=== PATIENT | male | born 1960 | race Caucasian/White ===

== ENCOUNTER → 2018-07-06 07:43 | Outpatient (CLI) | payer OTHER, SELFPAY ==
[2018-05-27 14:55] VITALS: BMI 26.8
[2018-07-06 08:58] LABS: AST(SGOT) 22 U/L (15-37); Alanine Aminotransfer ALT/SGPT 29 U/L (16-61); Albumin, Serum 3.6 g/dL (3.2-5.0); Alkaline Phosphatase 68 U/L (45-117); Bilirubin, Direct 0.18 mg/dL (0.00-0.30); Cholesterol 168 mg/dL (200); Globulin 3.3 g/dL (2.2-4.2); High Density Lipoprotein 39 mg/dL; Protein, Total 6.9 g/dL (6.4-8.2); Triglycerides 150 mg/dL; Very Low Density Lipoprotein 30 mg/dL (5-40)
== END ==
PROVIDERS: Family Provider Family Medicine; PCP Family Medicine; Referring Provider Internal Medicine Cardiovascular Disease; Visit Provider Internal Medicine Cardiovascular Disease
DX: E78.00 Pure hypercholesterolemia, unspecified (principal)
CPT/HCPCS: 36415; 80061; 80076

== ENCOUNTER → 2018-07-07 06:51 | Outpatient (CLI) | payer OTHER, SELFPAY ==
[2018-05-27 14:55] VITALS: BMI 26.8
--- NOTE | 2018-07-07 10:38 | STRESSREP_ITS ---
Stress Test Report Date: 07-07-18 Procedure: Exercise tolerance test/imaging study Indications: Chest pain; paroxysmal atrial fibrillation Consent: Per the patient Procedure: The patient exercised on a Long protocol for 11 minutes completing Stage III and 2 minutes of Stage IV achieving a peak heart rate of 129 bpm (79 % predicted maximal heart rate) with a peak blood pressure 136/72 mmHg and a peak MET capacity of 13 METs. The baseline ECG demonstrated normal sinus rhythm . The peak exercise ECG demonstrated no obvious ECG changes . There was a rare PAC during exercise . The functional capacity was considered good . There was no complaint of chest discomfort during exercise or recovery. The examination was discontinued secondary to dyspnea and fatigue . Impression: 1. Technically inadequate (percent predicted maximal heart rate less than 85%) exercise tolerance test 2. Peak exercise ECG with no obvious ECG changes at the heart rate achieved 3. There was a rare PAC during exercise 4. Nuclear images pending Myocardial perfusion imaging study: Technique: The patient was injected with 11.8 mCi of technetium 99m Cardiolite and subsequently rest SPECT Cardiolite nuclear imaging was obtained in the horizontal long, vertical long, and short axis views. The patient exercised on a Long protocol for 11 minutes completing Stage III and 2 minutes of Stage IV achieving a peak heart rate of 129 bpm (79 % predicted maximal heart rate) with a peak blood pressure 136/72 mmHg and a peak MET capacity of 13 METs. The patient was injected with 36 mCi of technetium 99m Cardiolite and subsequently stress SPECT Cardiolite nuclear imaging was obtained in the horizontal long, vertical long, and short axis views. A gated Cardiolite study at peak stress was obtained. Interpretation: Rest and stress SPECT Cardiolite nuclear imaging status post realignment, normalization, and attenuation correction, demonstrates the appearance of relative uniform tracer uptake and myocardial perfusion appearing within normal limits at the heart rate achieved. There is end systolic thickening and brightening. The gated Cardiolite study demonstrates myocardial thickening and inward wall motion. The reported LVEF is 60 %. Impression: 1. Rest and stress SPECT Cardiolite nuclear imaging demonstrate relative uniform tracer uptake and myocardial perfusion appearing within normal limits at the heart rate achieved. 2. The gated Cardiolite study reports an LVEF of 60 %. This note was generated with [employer] software. It may contain incorrect words, spelling, and punctuation that were not noted in checking the note before signing.
== END ==
PROVIDERS: Family Provider Family Medicine; PCP Family Medicine; Referring Provider Internal Medicine Cardiovascular Disease; Visit Provider Internal Medicine Cardiovascular Disease
DX: R07.9 Chest pain, unspecified (principal); E78.00 Pure hypercholesterolemia, unspecified
CPT/HCPCS: 78452; 93017; A9500; A4216

== ENCOUNTER → 2018-07-27 09:51 | Outpatient (CLI) | payer OTHER, SELFPAY ==
[2018-05-27 14:55] VITALS: BMI 26.8
[2018-07-27 11:32] LABS: PSA,Total - Annual Screen 3.34 ng/mL (0.00-4.00)
== END ==
PROVIDERS: Family Provider Family Medicine; PCP Family Medicine; Referring Provider Nurse Practitioner Adult Health; Visit Provider Nurse Practitioner Adult Health
DX: Z12.5 Encounter for screening for malignant neoplasm of prostate (principal)
CPT/HCPCS: 36415; 84153; G0103

== ENCOUNTER → 2019-02-08 12:08 | Outpatient (CLI) | payer OTHER, SELFPAY ==
[2018-12-02 12:55] VITALS: BMI 25.7
[2019-02-08 13:18] LABS: Hemoglobin A1c 5.3 % (4.2-6.3)
== END ==
PROVIDERS: Family Provider Family Medicine; PCP Family Medicine; Referring Provider Family Medicine; Visit Provider Family Medicine
DX: Z13.1 Encounter for screening for diabetes mellitus (principal)
CPT/HCPCS: 36415; 83036

== ENCOUNTER → 2019-11-29 09:41 | Outpatient (CLI) | payer OTHER, SELFPAY ==
[2019-11-29 08:37] VITALS: BMI 25.9
[2019-11-29 11:21] LABS: AST(SGOT) 31 U/L (15-37); Alanine Aminotransfer ALT/SGPT 33 U/L (16-61); Albumin, Serum 3.3 g/dL (3.2-5.0); Alkaline Phosphatase 67 U/L (45-117); Bilirubin, Direct 0.13 mg/dL (0.00-0.30); Cholesterol 172 mg/dL (200); High Density Lipoprotein 36 mg/dL; Protein, Total 7.3 g/dL (6.4-8.2); Triglycerides 216 mg/dL; Very Low Density Lipoprotein 43 mg/dL (5-40)
== END ==
PROVIDERS: PCP Family Medicine; Referring Provider Physician Assistant Medical; Visit Provider Physician Assistant Medical
DX: E78.00 Pure hypercholesterolemia, unspecified (principal)
CPT/HCPCS: 36415; 80061; 80076

== ENCOUNTER 2019-12-18 13:02 | Emergency (ER) | payer OTHER, SELFPAY ==
[2019-11-29 08:37] VITALS: BMI 25.9
[2019-12-18 13:03] VITALS: BP 118/77; PULSE 108; RESP 18; TEMP 36.2; O2SAT 99; BMI 26.4
--- NOTE | 2019-12-18 13:16 | CT_ITS ---
STUDY: CT ABDOMEN AND PELVIS WITH CONTRAST REASON FOR EXAM: Male, 59 years old. PT STATED RLQ PAIN, HX BOWEL RESECTION RADIATION DOSAGE (If Supplied By Facility): CTDIvol = ( 14 ) mGy, DLP = ( 892.08 ) mGycm TECHNIQUE: Transaxial images were obtained from the dome of the diaphragm to the symphysis pubis with oral contrast. IV 100mL Isovue-300 was administered. Sagittal and coronal images were reconstructed. Individualized dose optimization techniques were used for this CT. COMPARISON: 04/15/2017 FINDINGS: The visualized lung bases are unremarkable. The visualized portions of the heart are within normal limits. Normal liver. Normal gallbladder and extrahepatic biliary system. Normal spleen. Normal pancreas. Normal bilateral adrenal glands. Normal right kidney. Nonobstructing punctate calculus in the left kidney is stable. Normal visualized stomach. Normal small intestine. Normal colon. There is a tubular, thick-walled appendix (14 mm), consistent with acute appendicitis. Localized wall thickening at the origin of the appendix/medial cecal wall. Normal abdominal aorta. Normal inferior vena cava. Normal retroperitoneum. Normal urinary bladder. Operative changes of the anterior abdominal wall. Normal osseous structures. CT/Abdomen/Pelvis WITH Contrast IMPRESSION: Acute appendicitis with periappendiceal stranding/inflammation. No focal fluid collection or pneumoperitoneum. N.B. : The above information has been verbally conveyed by Ramón Chen MD (Brooks) to Johnny Doll MD, on 12/18/2019 15:28:10 (ET). Electronically Signed: Ramón Chen MD (Brooks) at 15:29 EDT , Service support ,
--- NOTE | 2019-12-18 13:21 | ED.VIS.GI ---
History of Present Illness Chief Complaint: Abd Pain Narrative: Patient presenting for evaluation secondary to abdominal pain. Patient has complicated abdominal history with a history in 2010 of having complications from hernia surgery that resulted in abdominal compartment syndrome, necrotic bowel with bowel resection, and a prolonged recovery. Patient tells me that over the course of the last 36 hours he has developed some abdominal pain. He states that this came on when he woke up in the morning day and a half ago, initially was in his epigastrium but now has localized across his lower abdomen. He denies that there is any sort of exacerbating relieving factors. Pain is aching and sharp. Patient has had frequent belching but no nausea or vomiting, no diarrhea, he denies any decreased flatus. Patient denies any presence of fevers although he does report that just prior to arrival he had an episode of chills. Patient tells me that he is concerned about the possibility of a bowel obstruction, but does not have a prior history of this in the past. Review of systems otherwise negative. Past Medical History - Allergies and Home Meds Allergies/Adverse Reactions: Allergies No Known Allergies Allergy (Verified 12/18/19 13:04) Primary Care Physician: Olivier Garcias III, MD [Primary Care Provider] - Prior records reviewed: Yes Past Medical History: - - Rhythm controlled atrial fibrillation Surgical History: - - Multiple abdominal surgeries, history of abdominal compartment syndrome Lives: Spouse/ Significant Other Smoking Status: Never smoker Alcohol: None Drugs: None Review of Systems All systems negative except as indicated General: Reports: Chills Eyes: Denies: Visual changes - bilaterally, Diplopia ENT: Denies: Rhinorrhea, Sore throat Cardiovascular: Denies: Chest pain, Palpitations Respiratory: Denies: Dyspnea, Cough, Dyspnea on exertion Gastrointestinal: Reports: Abdominal pain, - - Frequent belching Genitourinary: Denies: Dysuria, Hematuria, Frequency Musculoskeletal: Denies: Back pain, Extremity Pain Skin: Denies: Rash, Wounds Neurological: Denies: Headache, Weakness, Numbness Physical Exam Vital Signs/Narrative: Vital Signs Temp Pulse Resp BP Pulse Ox 12/18/19 13:03 97.2 F L 108 H 18 118/77 99 Inital Vital Signs reviewed: Yes General: Well nourished, Well developed, No Acute Distress Head: Normocephalic, Atraumatic Eyes: Perrl, EOMI ENT: Moist mucous membranes, No rhinorrhea Neck: Supple, Nontender Cardiovascular: Regular rate, Regular rhythm, No murmurs Respiratory: No distress, CTA bilaterally, Chest nontender Abdomen: Soft, Nondistended, Normal bowel sounds, Tender - Tenderness noted in the patient's right lower quadrant with some voluntary guarding with deep palpation, no evidence of diffuse rigidity. No palpable masses. Well-healed very large midline abdominal surgical scar Back: Nontender, Normal Inspection Extremities: Nontender, No edema Skin: Normal color, No rash Neurological: Alert, Oriented x3, Cranial nerves II-XII grossly intact, Normal Strength, Normal Sensation Psychological: Normal affect, Normal Mood Diagnostic/Tx/Re-eval Clinical Impression(s) from Imaging Studies Abdomen/Pelvis CT 12/18/19 13:16 IMPRESSION: Acute appendicitis with periappendiceal stranding/inflammation. No focal fluid collection or pneumoperitoneum. N.B. : The above information has been verbally conveyed by Ramón Chen MD (Brooks) to Johnny Doll MD, on 12/18/2019 15:28:10 (ET). Electronically Signed: Ramón Chen MD (Brooks) at 15:29 EDT , Service support , ADDENDUM: 12/18/19 1536 IMPRESSION: Acute appendicitis with periappendiceal stranding/inflammation. No focal fluid collection or pneumoperitoneum. N.B. : The above information has been verbally conveyed by Ramón Chen MD (Brooks) to Johnny Doll MD, on 12/18/2019 15:28:10 (ET). Electronically Signed: Ramón Chen MD (Brooks) at 15:29 EDT , Service support , Laboratory Data 12/18/19 12/18/19 12/18/19 13:10 13:10 13:20 WBC 14.7 H RBC 4.97 Hgb 15.8 Hct 45.9 MCV 92.4 MCH 31.8 MCHC 34.4 RDW Std Deviation 41.2 RDW Coeff of Lance 12.3 Plt Count 134 L MPV 9.2 Immature Gran % (Auto) 0.300 Neut % (Auto) 92.0 H Lymph % (Auto) 3.3 L [place] % (Auto) 4.1 Eos % (Auto) 0.1 Baso % (Auto) 0.2 Absolute Neuts (auto) 13.5 H Absolute Lymphs (auto) 0.48 L Nucleated RBC % 0 Differential Comment SCANNED Sodium 135 L Potassium 3.8 Chloride 102 Carbon Dioxide 25.0 Anion Gap 8 BUN 14 Creatinine 1.46 H Estim Creat Clear Calc 59.79 Est GFR (MDRD) Af Amer 64 Est GFR (MDRD) Non-Af 53 L BUN/Creatinine Ratio 9.6 L Glucose 154 H Lactic Acid 2.8 H* Calcium 9.3 Total Bilirubin 1.60 H AST 16 ALT 32 Alkaline Phosphatase 75 Total Protein 7.5 Albumin 3.8 Globulin 3.7 Albumin/Globulin Ratio 1.0 Lipase 141 - Medical Decision Making Patient presented with abdominal pain and a complicated abdominal history. IV was established laboratory studies were obtained. Patient was found to have a leukocytosis of 14, modest lactic acidosis of 2.8. Chemistry panel unremarkable. CT abdomen and pelvis with p.o. and IV contrast was performed which shows nonperforated acute appendicitis. I discussed patient's case with covering surgery Dr. Garcias, who feels given the patient's history of abdominal compartment syndrome and potential healing by secondary intention that he is not a good candidate for surgical intervention at this facility. I discussed with the family transfer, and they did request being transferred back to the [facility]. I discussed this with covering surgery at the [facility] and they accepted the patient in transfer. Patient had blood cultures obtained he was given Zosyn. Patient will be transferred for definitive management of his acute appendicitis. ED Disposition - Plan for ED Patient: Disposition: [facility] - Main Diagnosis: Acute appendicitis
[2019-12-18 13:26] LABS: Absolute Lymphocyte Count 0.48 X10^3/uL (0.83-4.51); Absolute Neutrophil Count 13.5 X10^3/uL (2.0-7.7); Basophil# 0.03 X10^3/uL; Basophil% 0.2 % (0-1); Eosinophil# 0.01 X10^3/uL; Eosinophils% 0.1 % (0-5); Hematocrit 45.9 % (40-54); Hemoglobin 15.8 g/dL (13.0-16.5); Lymphocyte # 0.48 X10^3/ul (4.0); Lymphocyte % 3.3 % (19-41); Mean Corp Hgb Conc 34.4 g/dL (32-36); Mean Corpuscular Hgb 31.8 pg (27.0-32.0); Mean Corpuscular Volume 92.4 fL (80-94); Mean Platelet Vol. 9.2 fl (6.2-12.0); Monocyte% 4.1 % (0-10); NRBC Flagged by Analyzer 0 % (0-5); Neutrophil # 13.54 X10^3/uL (2.7-7.7); POSITIVE DIFFERENTIAL YES; Platelet Count 134 K/mm3 (150-450); RBC Distribution Width CV 12.3 % (11.6-14.6); RBC Distribution Width SD 41.2 fl (35.1-43.9); Red Blood Count 4.97 M/mm3 (4.6-6.2); White Blood Count 14.7 K/mm3 (4.4-11.0)
[2019-12-18 13:31] LABS: Differential Indicated SCAN CRITERIA MET
[2019-12-18 13:38] LABS: AST(SGOT) 16 U/L (15-37); Alanine Aminotransfer ALT/SGPT 32 U/L (16-61); Albumin, Serum 3.8 g/dL (3.2-5.0); Alkaline Phosphatase 75 U/L (45-117); Anion Gap 8 (5-15); BUN 14 mg/dL (7-18); BUN/Creat Ratio 9.6 RATIO (10-20); Calcium,Total 9.3 mg/dL (8.5-10.1); Chloride 102 mmol/L (98-107); Creatinine, Serum 1.46 mg/dL (0.70-1.30); EST Glomerular Filtration Rate 53 mL/min (>60); Est Glom Filt Rate - Afr Amer 64 mL/min (>60); Estimated Creatinine Clearance 59.79 ml/min; Globulin 3.7 g/dL (2.2-4.2); Glucose 154 mg/dL (74-106); Lipase 141 U/L (73-393); Potassium 3.8 mmol/L (3.5-5.1); Protein, Total 7.5 g/dL (6.4-8.2); Sodium Level 135 mmol/L (136-145)
[2019-12-18 14:00] VITALS: BP 120/77; PULSE 91; RESP 16; O2SAT 96
[2019-12-18 14:10] LABS: Differential Comment SCANNED
[2019-12-18] MEDS: 0.9% Normal Saline 1,000 ML 999 ML IV (14:12)
[2019-12-18 14:14] LABS: Lactic Acid 2.8 mmol/L (0.4-1.9)
[2019-12-18 15:53] VITALS: BP 117/76; PULSE 94; RESP 16; TEMP 37.1; O2SAT 98
[2019-12-18] MEDS: 0.9% Normal Saline 1,000 ML 125 ML IV (15:57)
[2019-12-18 17:31] LABS: Reflex Lactate? Y
== END 2019-12-18 17:00 | disposition short-term general hospital (02) ==
PROVIDERS: Emergency Provider Emergency Medicine; PCP Family Medicine
DX: K35.80 Unspecified acute appendicitis (principal); E87.2 Acidosis; I48.91 Unspecified atrial fibrillation; Z79.82 Long term (current) use of aspirin; Z79.899 Other long term (current) drug therapy; Z90.49 Acquired absence of other specified parts of digestive tract
CPT/HCPCS: 74177; 80053; 83605; 83690; 85025; 87040; 96361; 96365; 99284; J7030; Q9967; A4216

== ENCOUNTER → 2020-02-03 09:30 | Outpatient (CLI) | payer OTHER, SELFPAY ==
[2019-12-18 13:33] VITALS: BMI 26.4
== END ==
PROVIDERS: PCP Family Medicine
DX: Z12.5 Encounter for screening for malignant neoplasm of prostate (principal)
CPT/HCPCS: 36415; 84153; G0103

== ENCOUNTER → 2020-12-29 08:52 | Outpatient (CLI) | payer OTHER, SELFPAY ==
[2020-12-29 10:51] LABS: ALB/GLOB Ratio 1.1 RATIO (0.9-2.4); AST(SGOT) 20 U/L (15-37); Alanine Aminotransfer ALT/SGPT 29 U/L (16-61); Albumin, Serum 3.7 g/dL (3.2-5.0); Alkaline Phosphatase 59 U/L (45-117); Anion Gap 4 (5-15); BUN 23 mg/dL (7-18); BUN/Creat Ratio 20.5 RATIO (10-20); Bilirubin, Direct 0.18 mg/dL (0.00-0.30); Chloride 107 mmol/L (98-107); Cholesterol 180 mg/dL (200); Creatinine, Serum 1.12 mg/dL (0.70-1.30); EST Glomerular Filtration Rate 71 mL/min (>60); Est Glom Filt Rate - Afr Amer 86 mL/min (>60); Globulin 3.3 g/dL (2.2-4.2); Glucose 76 mg/dL (74-106); High Density Lipoprotein 43 mg/dL; Magnesium 2.4 mg/dL (1.6-2.6); Potassium 3.8 mmol/L (3.5-5.1); Sodium Level 139 mmol/L (136-145); Triglycerides 132 mg/dL; Very Low Density Lipoprotein 26 mg/dL (5-40)
== END ==
PROVIDERS: Nurse Practitioner Family; PCP Physician Assistant; Visit Provider Physician Assistant
DX: Z00.00 Encounter for general adult medical examination without abnormal findings (principal); I48.0 Paroxysmal atrial fibrillation; E78.5 Hyperlipidemia, unspecified; E78.00 Pure hypercholesterolemia, unspecified; Z13.1 Encounter for screening for diabetes mellitus; Z79.899 Other long term (current) drug therapy
CPT/HCPCS: 36415; 80053; 80061; 82248; 83735

== ENCOUNTER → 2021-01-10 | Outpatient (CLI) | payer OTHER, SELFPAY | END | disposition home or self-care (01) | LOC: LABSPEC 16:12 → EMPH 16:39 → LABSPEC 16:39 | PROVIDERS: PCP Physician Assistant; Visit Provider Physician Assistant | DX: Z20.822 Contact with and (suspected) exposure to COVID-19 (principal) | CPT/HCPCS: 87635; U0005; U0003 ==

== ENCOUNTER → 2021-02-05 14:03 | Outpatient (CLI) | payer OTHER, SELFPAY ==
[2021-02-05 15:17] LABS: PSA,Total - Annual Screen 2.27 ng/mL (0.00-4.00)
== END ==
PROVIDERS: PCP Physician Assistant; Visit Provider Nurse Practitioner Adult Health
DX: Z12.5 Encounter for screening for malignant neoplasm of prostate (principal)
CPT/HCPCS: 36415; 84153; G0103

== ENCOUNTER 2021-06-11 09:12 | Outpatient (CLI) | payer OTHER, SELFPAY ==
[2021-06-11 11:00] LABS: AST(SGOT) 19 U/L (15-37); Alanine Aminotransfer ALT/SGPT 31 U/L (16-61); Albumin, Serum 3.9 g/dL (3.2-5.0); Alkaline Phosphatase 69 U/L (45-117); Bilirubin, Direct 0.18 mg/dL (0.00-0.30); Cholesterol 176 mg/dL (200); Globulin 3.4 g/dL (2.2-4.2); High Density Lipoprotein 41 mg/dL; Protein, Total 7.3 g/dL (6.4-8.2); Triglycerides 191 mg/dL; Very Low Density Lipoprotein 38 mg/dL (5-40)
== END 2021-06-11 23:59 | disposition short-term general hospital (02) ==
LOC: LAB 09:15
PROVIDERS: PCP Physician Assistant; Referring Provider Nurse Practitioner Family; Visit Provider Nurse Practitioner Family
DX: E78.00 Pure hypercholesterolemia, unspecified (principal)
CPT/HCPCS: 36415; 80061; 80076

== ENCOUNTER 2022-02-08 13:06 | Emergency (ER) | payer OTHER, SELFPAY ==
[2022-02-08 13:08] VITALS: BP 116/66; PULSE 122; RESP 18; TEMP 37.4; O2SAT 96; BMI 26.2
--- NOTE | 2022-02-08 13:47 | EKG12_ITS ---
Test Reason : EB Blood Pressure : / mmHG Vent. Rate : 112 BPM Atrial Rate : 112 BPM P-R Int : 170 ms QRS Dur : 084 ms QT Int : 300 ms P-R-T Axes : 062 075 050 degrees QTc Int : 409 ms Sinus tachycardia Otherwise normal ECG Confirmed by MIKE KESSLER, REED ([id number]), photo editor MELECIO ORTEGA ([id number]) on 02/11/2022 10:11:06 AM Referred By: SUKH Confirmed By:REED MCKEON MD
[2022-02-08 13:49] VITALS: BP 116/66; PULSE 122; RESP 18; TEMP 37.4; O2SAT 96
[2022-02-08 13:50] LABS: Bacteria 0 SEEN /hpf (None Seen); Mucous, Urine 0 SEEN /hpf (<or=2+); Squamous Epithelial Cells - UA 0 SEEN /hpf (0-5)
[2022-02-08 13:54] LABS: Color, Urine Yellow (Yellow); Glucose, Dipstick Normal (Normal); Ketone-Dipstick Negative (Negative); Leukocyte Esterase-Dipstick 500 /ul (Negative); Nitrite-Dipstick Positive (Negative); Occult Blood-Urine 250 /ul (Negative); Protein-Dipstick 30 mg/dl (Negative); Specific Gravity, Urine 1.005 (1.002-1.030); Urine Bilirubin Dipstick Negative (Negative); Urine Clarity Sl. Cloudy (Clear); Urine Urobilinogen Normal (Normal)
[2022-02-08] MEDS: Morphine 4 MG/ML Syringe IV (13:56)
[2022-02-08] MEDS: Ondansetron 4 MG/2 ML Vial IV (13:56)
[2022-02-08] MEDS: Acetaminophen 500 MG Tablet 1000 MG PO (13:56)
[2022-02-08] MEDS: 0.9% Normal Saline 1,000 ML 999 ML IV (13:57)
--- NOTE | 2022-02-08 13:58 | RAD_ITS ---
STUDY: X-RAY CHEST REASON FOR EXAM: Male, 61 years old. Fever and flank pain. TECHNIQUE: Single AP portable view of the chest. COMPARISON: Comparison is made with prior study dated 06/19/2016. FINDINGS: EKG electrodes are seen. The lungs are clear and expanded. There is no demonstrated pleural abnormality. Normal size heart. Normal mediastinum and martin. Normal visualized pulmonary arteries. Normal visualized aortic arch and descending thoracic aorta. There are diffuse degenerative changes of the visualized thoracic spine. Normal visualized ribs, clavicles, and shoulders. There is no demonstrated abnormality of the visualized soft tissue structures of the upper abdomen. RAD/Chest 1 View (Portable) IMPRESSION: No acute abnormality is seen. Electronically Signed: Edu Clayton MD at 14:14 EDT ,
[2022-02-08 14:02] LABS: Absolute Lymphocyte Count 0.51 X10^3/uL (0.83-4.51); Absolute Neutrophil Count 9.2 X10^3/uL (2.0-7.7); Basophil# 0.02 X10^3/uL; Basophil% 0.2 % (0-1); Eosinophil# 0.03 X10^3/uL; Eosinophils% 0.3 % (0-5); Hematocrit 46.4 % (40-54); Hemoglobin 16.1 g/dL (13.0-16.5); Lymphocyte # 0.51 X10^3/ul (0.83-4.51); Lymphocyte % 4.9 % (19-41); Mean Corp Hgb Conc 34.7 g/dL (32-36); Mean Corpuscular Hgb 31.8 pg (27.0-32.0); Mean Corpuscular Volume 91.7 fL (80-94); Mean Platelet Vol. 9.1 fl (6.2-12.0); Monocyte# 0.48 X10^3/uL; Monocyte% 4.7 % (0-10); NRBC Flagged by Analyzer 0 % (0-5); Neutrophil # 9.22 X10^3/uL (2.7-7.7); Neutrophil % 89.3 % (47-70); POSITIVE DIFFERENTIAL YES; Platelet Count 109 K/mm3 (150-450); RBC Distribution Width CV 12.3 % (11.6-14.6); RBC Distribution Width SD 41.1 fl (35.1-43.9); Red Blood Count 5.06 M/mm3 (4.6-6.2); White Blood Count 10.3 K/mm3 (4.4-11.0)
[2022-02-08 14:03] LABS: Red Blood Cells-Urine > 100 SEEN /hpf (0-5); White Blood Cells >100 SEEN /hpf (0-5)
[2022-02-08 14:04] LABS: Differential Indicated SCAN CRITERIA MET
[2022-02-08 14:19] LABS: ALB/GLOB Ratio 1.1 RATIO (0.9-2.4); AST(SGOT) 70 U/L (15-37); Alanine Aminotransfer ALT/SGPT 72 U/L (16-61); Albumin, Serum 4.2 g/dL (3.2-5.0); Alkaline Phosphatase 88 U/L (45-117); Anion Gap 9 (5-15); BUN 20 mg/dL (7-18); BUN/Creat Ratio 15.4 RATIO (10-20); Calcium,Total 9.5 mg/dL (8.5-10.1); Chloride 102 mmol/L (98-107); EST Glomerular Filtration Rate 60 mL/min (>60); Est Glom Filt Rate - Afr Amer 72 mL/min (>60); Globulin 3.9 g/dL (2.2-4.2); Glucose 100 mg/dL (74-106); Potassium 3.5 mmol/L (3.5-5.1); Protein, Total 8.1 g/dL (6.4-8.2); Sodium Level 138 mmol/L (136-145)
[2022-02-08 14:27] LABS: Lactic Acid 1.7 mmol/L (0.4-1.9)
[2022-02-08 14:33] LABS: International Normalized Ratio 1.1; Partial Thromboplast Time 25.3 Seconds (24.1-36.2); Prothrombin Time (Protime)PT. 13.8 SECONDS (11.7-14.9)
[2022-02-08 14:40] VITALS: BP 105/79; PULSE 110; RESP 28; TEMP 38.3; O2SAT 96
[2022-02-08 15:19] VITALS: BP 101/71; PULSE 100; RESP 26; O2SAT 92
[2022-02-08] MEDS: Ceftriaxone 1 GM/50 ML BAG IV (16:04)
--- NOTE | 2022-02-08 16:12 | EX.ED.DYSGE1 ---
HPI History of Present Illness Chief Complaint: Flank Pain Detail of Chief Complaint: Flank pain and hematuria Informant: patient Onset/Context/Timing Onset: Today Context: Gradual Onset Timing: Continuous Quality: Aching Location: Low back Worsened by: Nothing Relieved by: Nothing Narrative Narrative: Patient presents with fevers and hematuria that began today. Patient states his fever was 101.4 at home. Patient admits to some nausea but denies any vomiting. Patient noted blood in his urine today. Patient states there was some mucus in the urine as well. Patient admits to some burning with urination. Patient admits to some aching in his low back bilaterally. Patient also admits to a mild headache. Patient states he was recently changed from Detrol to Flomax on 01/29/2022. [facility] Medical History Acute embolism and thrombosis of deep vein of distal lower extremity Cardiomyopathy in other diseases classified elsewhere Encounter for screening for COVID-19 Family history of hypertension Hyperlipidemia Palpitations Paroxysmal atrial fibrillation Pure hypercholesterolemia URI (upper respiratory infection) Home Medications aspirin 81 mg chewable tablet 81 mg PO DAILY@0800 10/04/15 [History Last Taken Unknown] tolterodine 4 mg capsule,extended release 24 hr 4 mg PO QDAY 07/16/17 [History Last Taken Unknown] diphenhydramine HCl 50 mg capsule 50 mg PO QHS 12/26/21 [History Last Taken Unknown] flecainide 100 mg tablet 100 mg PO BID #180 tabs 12/31/21 [Rx Last Taken Unknown] metoprolol tartrate 25 mg tablet 25 mg PO BID #180 tabs 12/31/21 [Rx Last Taken Unknown] pravastatin 10 mg tablet 10 mg PO QHS #90 tabs 12/31/21 [Rx Last Taken Unknown] phenazopyridine 200 mg tablet (Pyridium) 200 mg PO TID #10 tabs 02/08/22 [Rx Last Taken Unknown] sulfamethoxazole 800 mg-trimethoprim 160 mg tablet 1 tab PO BID #14 TABLETS 02/08/22 [Rx Last Taken Unknown] Allergy/AdvReac Type Severity Reaction Status Date / Time No Known Allergies Allergy Verified 12/26/21 16:04 Family History Father Martha Gehrig disease Mother Myocardial infarction CAD (coronary artery disease) Brother Myocardial infarction, Onset Age: 60 Hypertension Multiple sclerosis Other Family history of hypertension Surgical History History of appendectomy History of left heart catheterization (LHC) Presence of IVC filter Social History Smoking Status: Never smoker alcohol intake: current alcohol intake frequency: a few times a week Alcohol type: beer substance use type: does not use caffeine: Yes Type: coffee Number of servings: 2 what type of physical activity do you participate in: none seatbelt use: always do you feel safe at home: Yes ROS ROS ED Constitutional Constitutional ED: Reports fever(s); Denies chills Eyes Eyes: Denies blurry vision or change in vision ENT ENT ED: Reports rhinorrhea; Denies sore throat Cardiovascular Cardiovascular: Denies chest pain or palpitations Respiratory/Chest Respiratory/Chest: Reports cough; Denies dyspnea Gastrointestinal Gastrointestinal: Reports nausea; Denies vomiting Genitourinary Genitourinary ED: Reports dysuria and hematuria Musculoskeletal Musculoskeletal: Reports back pain; Denies neck pain Integumentary Denies abscess or rash Neurologic Neurologic: Reports headache(s); Denies weakness Allergic/Immunologic Allergic/Immunologic ED: Denies mouth swelling or urticaria EXAM Physical Exam Const Vital Signs: 02/08/22 13:08 02/08/22 13:49 02/08/22 13:53 Temperature 99.4 F H 99.4 F H Temperature Source Oral Temporal Pulse Rate 122 H 122 H Respiratory Rate 18 18 Blood Pressure 116/66 116/66 Blood Pressure Mean 82 82 Pulse Ox 96 96 Oxygen Delivery Method Room Air Room Air Room Air 02/08/22 14:40 02/08/22 14:40 02/08/22 15:19 Temperature 100.9 F H 100.9 F H Temperature Source Oral Oral Pulse Rate 110 H 110 H 100 Respiratory Rate 28 H 28 H 26 H Blood Pressure 105/79 105/79 101/71 Blood Pressure Mean 87 87 81 Pulse Ox 96 96 92 Oxygen Delivery Method Room Air Room Air Room Air Positive well nourished and well developed General Appearance ED: well developed HEENT Reports moist mucous membranes Neck supple and no JVD Resp normal respiratory effort and clear to auscultation bilaterally Cardio regular rate and regular rhythm GI normal to inspection, nondistended, normoactive bowel sounds and non-tender Palpation: soft Neuro oriented x3, CN's II-XII intact bilaterally and no sensory deficits noted Sensorium / Orientation: alert Motor Exam: strength 5/5 throughout Psych mental status grossly normal MDM MDM MDM Narrative Medical decision making narrative: Patient was given IV fluids here. EKG was obtained. On my interpretation, it showed a sinus tachycardia with a rate of 112. ME interval, QRS interval, and QTc intervals were all normal. [place] was normal. There are no acute ST or T wave changes. CBC was within normal limits. Comprehensive metabolic profile was essentially within normal limits. PT was INR and PTT were within normal limits. Lactate was normal. Urinalysis shows a leukocyte esterases of 500 with greater than 100 red cells and greater than 100 white cells. Urine culture was ordered. Patient was given a dose of Rocephin here. CT scan of the abdomen pelvis was obtained. There is no acute abnormality noted. This was interpreted by the radiologist and reviewed by myself. Patient was given a prescription for Bactrim and Pyridium. Patient was instructed to follow-up with his primary care physician and urologist in 5 to 7 days. Patient understood and was agreeable with the plan. All questions were answered. Lab Data Attestation: I reviewed the patient's lab results. Labs: Laboratory Results - last 24 hr 02/08/22 02/08/22 02/08/22 13:40 13:40 13:40 WBC 10.3 RBC 5.06 Hgb 16.1 Hct 46.4 MCV 91.7 MCH 31.8 MCHC 34.7 RDW Std Deviation 41.1 RDW Coeff of Lance 12.3 Plt Count 109 L MPV 9.1 Immature Gran % (Auto) 0.600 Neut % (Auto) 89.3 H Lymph % (Auto) 4.9 L [place] % (Auto) 4.7 Eos % (Auto) 0.3 Baso % (Auto) 0.2 Absolute Neuts (auto) 9.2 H Absolute Lymphs (auto) 0.51 L Nucleated RBC % 0 PT INR APTT Sodium 138 Potassium 3.5 Chloride 102 Carbon Dioxide 27.0 Anion Gap 9 BUN 20 H Creatinine 1.30 Estim Creat Clear Calc 65.50 Est GFR (MDRD) Af Amer 72 Est GFR (MDRD) Non-Af 60 BUN/Creatinine Ratio 15.4 Glucose 100 Lactic Acid Calcium 9.5 Total Bilirubin 1.40 H AST 70 H ALT 72 H Alkaline Phosphatase 88 Total Protein 8.1 Albumin 4.2 Globulin 3.9 Albumin/Globulin Ratio 1.1 Urine Color Yellow Urine Clarity Sl. Cloudy Urine pH 7.0 Ur Specific [place] 1.005 Urine Protein 30 H Urine Glucose (UA) Normal Urine Ketones Negative Urine Occult Blood 250 H Urine Nitrite Positive H Urine Bilirubin Negative Urine Urobilinogen Normal Ur Leukocyte Esterase 500 H Urine RBC > 100 SEEN Urine WBC >100 SEEN Ur Squamous Epith Cells 0 SEEN Urine Bacteria 0 SEEN Urine Mucus 0 SEEN 02/08/22 02/08/22 13:40 14:05 WBC RBC Hgb Hct MCV MCH MCHC RDW Std Deviation RDW Coeff of Lance Plt Count MPV Immature Gran % (Auto) Neut % (Auto) Lymph % (Auto) [place] % (Auto) Eos % (Auto) Baso % (Auto) Absolute Neuts (auto) Absolute Lymphs (auto) Nucleated RBC % PT 13.8 INR 1.1 APTT 25.3 Sodium Potassium Chloride Carbon Dioxide Anion Gap BUN Creatinine Estim Creat Clear Calc Est GFR (MDRD) Af Amer Est GFR (MDRD) Non-Af BUN/Creatinine Ratio Glucose Lactic Acid 1.7 Calcium Total Bilirubin AST ALT Alkaline Phosphatase Total Protein Albumin Globulin Albumin/Globulin Ratio Urine Color Urine Clarity Urine pH Ur Specific [place] Urine Protein Urine Glucose (UA) Urine Ketones Urine Occult Blood Urine Nitrite Urine Bilirubin Urine Urobilinogen Ur Leukocyte Esterase Urine RBC Urine WBC Ur Squamous Epith Cells Urine Bacteria Urine Mucus Radiography Diagnostic Testing: Clinical Impression(s) from Imaging Studies Chest X-Ray 02/08/22 13:58 IMPRESSION: No acute abnormality is seen. Electronically Signed: Edu Clayton MD at 14:14 EDT , EKG Initial EKG: Attestation: I personally reviewed and interpreted this EKG as follows: Interpretation: No Acute Injury Pattern and Sinus Tachycardia (112) Discharge Plan Triage Chief Complaint: Flank Pain ED Provider: Brady Chirinos Dx/Rx/DC Orders Clinical Impression: Hemorrhagic cystitis, Bilateral flank pain Instructions: ED Bladder Infection, Male (Adult) Prescriptions: New sulfamethoxazole-trimethoprim [sulfamethoxazole-trimethoprim] 800-160 mg tablet 1 tab PO BID Qty: 14 0RF phenazopyridine [Pyridium] 200 mg tablet 200 mg PO TID Qty: 10 0RF No Action tolterodine 4 mg capsule,extended release 24hr 4 mg PO QDAY diphenhydramine HCl 50 mg capsule 50 mg PO QHS aspirin 81 MG tablet,chewable 81 mg PO DAILY@0800 flecainide 100 mg tablet 100 mg PO BID Qty: 180 3RF metoprolol tartrate 25 mg tablet 25 mg PO BID Qty: 180 3RF pravastatin 10 mg tablet 10 mg PO QHS Qty: 90 3RF Primary Care Provider: Mayuri Collins Referrals: Mayuri Collins PA [Primary Care Provider] - 5-7 Days Disposition Disposition: Home, Self Care
[2022-02-08 16:48] VITALS: BP 86/65
--- NOTE | 2022-02-09 10:14 | ED.RN ---
call pt to come back per Dr Ford
== END 2022-02-08 16:49 | disposition home or self-care (01) ==
PROVIDERS: Emergency Provider Emergency Medicine; PCP Physician Assistant; Visit Provider Emergency Medicine
DX: N30.91 Cystitis, unspecified with hematuria (principal); I48.0 Paroxysmal atrial fibrillation; R11.0 Nausea; E78.5 Hyperlipidemia, unspecified; Z79.899 Other long term (current) drug therapy; Z79.82 Long term (current) use of aspirin
CPT/HCPCS: 71045; 80053; 81001; 83605; 85025; 85610; 85730; 87040; 87077; 87086; 87088; 87149; 87184; 87186; 93005; 96361; 96365; 96375; 99285; J7030; J7050; A4216; J2405

== ENCOUNTER 2022-02-09 10:38 | Inpatient (IN) | payer MEDICARE, SELFPAY ==
[2022-02-09] VITALS (9 sets, daily range): BP systolic 85–121; BP diastolic 66–73; PULSE 74–94; RESP 16–18; TEMP 35.8–37.3; O2SAT 95–97; BMI 26.2; BMI 26.9
--- NOTE | 2022-02-09 10:46 | EDS_ITS ---
HPI History of Present Illness Chief Complaint: Abn Labs Narrative Narrative: 61-year-old male presents after having positive blood cultures yesterday. He was seen and evaluated in the ER for fever and hematuria yesterday. He had blood work done which was fairly unremarkable. He states that he had a fever of 100.4 initially. He has not had return of any fevers. He states that last night before laying down he chills and shakes. When I asked him how he felt today he states pretty good. He does state that he has had some more hematuria. He states initially had some midline abdominal pain yesterday right before he had hematuria and this dissipated. Does not any back or flank pain now. [facility] Medical History Acute embolism and thrombosis of deep vein of distal lower extremity Cardiomyopathy in other diseases classified elsewhere Encounter for screening for COVID-19 Family history of hypertension Hyperlipidemia Palpitations Paroxysmal atrial fibrillation Pure hypercholesterolemia URI (upper respiratory infection) Home Medications aspirin 81 mg chewable tablet 81 mg PO DAILY@0800 10/04/15 [History Last Taken Unknown] tolterodine 4 mg capsule,extended release 24 hr 4 mg PO QDAY 07/16/17 [History Last Taken Unknown] diphenhydramine HCl 50 mg capsule 50 mg PO QHS 12/26/21 [History Last Taken Unknown] flecainide 100 mg tablet 100 mg PO BID #180 tabs 12/31/21 [Rx Last Taken Unknown] metoprolol tartrate 25 mg tablet 25 mg PO BID #180 tabs 12/31/21 [Rx Last Taken Unknown] pravastatin 10 mg tablet 10 mg PO QHS #90 tabs 12/31/21 [Rx Last Taken Unknown] phenazopyridine 200 mg tablet (Pyridium) 200 mg PO TID #10 tabs 02/08/22 [Rx Last Taken Unknown] sulfamethoxazole 800 mg-trimethoprim 160 mg tablet 1 tab PO BID #14 TABLETS 02/08/22 [Rx Last Taken Unknown] Allergy/AdvReac Type Severity Reaction Status Date / Time No Known Allergies Allergy Verified 02/09/22 10:44 Family History Father Martha Gehrig disease Mother Myocardial infarction CAD (coronary artery disease) Brother Myocardial infarction, Onset Age: 60 Hypertension Multiple sclerosis Other Family history of hypertension Surgical History History of appendectomy History of left heart catheterization (LHC) Presence of IVC filter Social History Smoking Status: Never smoker alcohol intake: current alcohol intake frequency: a few times a week Alcohol type: beer substance use type: does not use caffeine: Yes Type: coffee Number of servings: 2 what type of physical activity do you participate in: none seatbelt use: always do you feel safe at home: Yes ROS ROS ED Constitutional Constitutional ED: Reports chills, fever(s) and sweats Eyes Eyes: Denies change in vision ENT ENT ED: Denies rhinorrhea Cardiovascular Cardiovascular: Denies chest pain or palpitations Respiratory/Chest Respiratory/Chest: Denies cough or dyspnea Gastrointestinal Gastrointestinal: Reports abdominal pain, nausea and vomiting Genitourinary Genitourinary ED: Denies dysuria or hematuria Musculoskeletal Musculoskeletal: Reports myalgias Integumentary Denies abscess or Abrasions Neurologic Neurologic: Denies headache(s) or paresthesias Psychiatric Psychiatric: Denies anxiety or depression EXAM Physical Exam Const Vital Signs: 02/09/22 10:39 02/09/22 10:49 02/09/22 12:35 Temperature 96.5 F L 96.5 F L 98.1 F Temperature Source Temporal Temporal Temporal Pulse Rate 88 88 74 Respiratory Rate 18 18 16 Blood Pressure 85/73 L 85/73 L 106/68 Blood Pressure Mean 77 77 80 Pulse Ox 95 95 97 Oxygen Delivery Method Room Air Room Air Room Air 02/09/22 13:20 02/09/22 13:48 Temperature 98.3 F Temperature Source Oral Pulse Rate 80 Respiratory Rate 16 Blood Pressure 105/72 Blood Pressure Mean 83 Pulse Ox 97 Oxygen Delivery Method Room Air Positive well nourished General Appearance ED: NAD; Negative for pallor HEENT Reports moist mucous membranes Negative for trauma Eyes PERRL and EOMs intact bilaterally General Eye ED: Negative for pale conjunctiva Chest Wall inspection of chest normal Resp normal respiratory effort and clear to auscultation bilaterally Auscultation: Negative for rales, rhonchi or wheezes Cardio regular rate and regular rhythm GI normal to inspection, nondistended, normoactive bowel sounds, non-tender and non-distended Back/Spine no CVA tenderness Neuro oriented x3 and CN's II-XII intact bilaterally Sensorium / Orientation: alert Motor Exam: strength 5/5 throughout Psych mental status grossly normal Skin no rashes or lesions noted, no wounds and skin turgor normal General Skin Exam: Negative for jaundice or pallor MDM MDM MDM Narrative Medical decision making narrative: Patient seen and evaluated on arrival for febrile illness which resolved. He does describe sweats, shakes, chills last evening. He states he feels well today. His blood cultures came back gram-positive cocci, and his urine also came back with gram-negative rods indicating possible Pseudomonas. Patient's blood pressure initially was 85/73 when he arrived but this is similar to what he had when he left. He does report that he had morphine last night and took his metoprolol last evening. He did not take this today. His blood pressure is now 105/72, heart rate 80, respiratory 16, temperature 98.3, 97% on room air. He had a chest x-ray that was negative yesterday and he has no new respiratory complaints. CBC does not show any leukocytosis and his white blood cell count Malini gone down to 9.5. Creatinine is elevated today at 1.38 and it was 1.30 yesterday. Electrolytes within normal limits. Lactic acid was within normal limits as well. I spoke with infectious disease and they recommended putting the patient on cefepime every 8 hours and stopping the Bactrim. They did not want to use Cipro because he is on flecainide. They did recommend admission. I spoke with hospitalist. Patient transferred in stable condition. Impression: 1. UTI 2. positive blood cultures 3. Hypotension resolved Lab Data Attestation: I reviewed the patient's lab results. Labs: Laboratory Results - last 24 hr 02/09/22 02/09/22 02/09/22 10:55 10:55 10:55 WBC 9.5 RBC 4.43 L Hgb 13.9 Hct 40.9 MCV 92.3 MCH 31.4 MCHC 34.0 RDW Std Deviation 43.0 RDW Coeff of Lance 12.6 Plt Count 104 L MPV 9.5 Immature Gran % (Auto) 0.400 Neut % (Auto) 91.3 H Lymph % (Auto) 3.5 L [place] % (Auto) 4.6 Eos % (Auto) 0.0 Baso % (Auto) 0.2 Absolute Neuts (auto) 8.6 H Absolute Lymphs (auto) 0.33 L Nucleated RBC % 0 Platelet Estimate ADEQUATE RBC Morphology NORM C+C PT 16.5 H INR 1.4 Sodium 138 Potassium 4.0 Chloride 106 Carbon Dioxide 24.0 Anion Gap 8 BUN 20 H Creatinine 1.38 H Estim Creat Clear Calc 61.70 Est GFR (MDRD) Af Amer 67 Est GFR (MDRD) Non-Af 56 L BUN/Creatinine Ratio 14.5 Glucose 108 H Lactic Acid Calcium 9.0 Total Bilirubin 0.70 AST 48 H ALT 73 H Alkaline Phosphatase 72 Total Protein 6.6 Albumin 3.1 L Globulin 3.5 Albumin/Globulin Ratio 0.9 02/09/22 10:55 WBC RBC Hgb Hct MCV MCH MCHC RDW Std Deviation RDW Coeff of Lance Plt Count MPV Immature Gran % (Auto) Neut % (Auto) Lymph % (Auto) [place] % (Auto) Eos % (Auto) Baso % (Auto) Absolute Neuts (auto) Absolute Lymphs (auto) Nucleated RBC % Platelet Estimate RBC Morphology PT INR Sodium Potassium Chloride Carbon Dioxide Anion Gap BUN Creatinine Estim Creat Clear Calc Est GFR (MDRD) Af Amer Est GFR (MDRD) Non-Af BUN/Creatinine Ratio Glucose Lactic Acid 1.2 Calcium Total Bilirubin AST ALT Alkaline Phosphatase Total Protein Albumin Globulin Albumin/Globulin Ratio Radiography Diagnostic Testing: Clinical Impression(s) from Imaging Studies Abdomen/Pelvis CT 02/09/22 11:01 IMPRESSION: Fluid-filled loops of small bowel with no evidence of mild enteritis. No other acute abnormalities are identified. Electronically Signed: Saad Alas MD at 12:08 EDT , Discharge Plan Triage Chief Complaint: Abn Labs Other Complaint: Abd Pain ED Provider: Asif Ford Dx/Rx/DC Orders Prescriptions: No Action tolterodine 4 mg capsule,extended release 24hr 4 mg PO QDAY diphenhydramine HCl 50 mg capsule 50 mg PO QHS aspirin 81 MG tablet,chewable 81 mg PO DAILY@0800 sulfamethoxazole-trimethoprim [sulfamethoxazole-trimethoprim] 800-160 mg tablet 1 tab PO BID Qty: 14 0RF phenazopyridine [Pyridium] 200 mg tablet 200 mg PO TID Qty: 10 0RF flecainide 100 mg tablet 100 mg PO BID Qty: 180 3RF metoprolol tartrate 25 mg tablet 25 mg PO BID Qty: 180 3RF pravastatin 10 mg tablet 10 mg PO QHS Qty: 90 3RF Primary Care Provider: Mayuri Collins Referrals: Mayuri Collins PA [Primary Care Provider] -
--- NOTE | 2022-02-09 11:01 | CT_ITS ---
EXAM: CT ABDOMEN AND PELVIS WITHOUT INTRAVENOUS CONTRAST CLINICAL INDICATION: flank pain TECHNIQUE: Helically acquired images were obtained of the abdomen and pelvis without intravenous contrast. This CT exam was performed using one or more of the following dose reduction techniques: automated exposure control, adjustment of the mA and/or kV according to patient size, and/or use of iterative reconstruction technique. This report was created using [employer] report generation technology. COMPARISON: 12/28/2019 FINDINGS: LOWER THORAX: Unremarkable. Lung bases are clear. No cardiomegaly. No significant pericardial effusion. ABDOMEN: LIVER: Unremarkable. Homogeneous. GALLBLADDER AND BILE DUCTS: Unremarkable. No calcified gallstones. No gallbladder distention or wall edema. No intra- or extrahepatic biliary ductal dilation. PANCREAS: Unremarkable. No focal cystic mass. SPLEEN: Unremarkable. Normal size without focal cystic or solid mass. ADRENALS: Unremarkable. No nodules. KIDNEYS AND URETERS: There is a nonobstructing calyceal stone in the left kidney. Normal renal size and position. STOMACH AND BOWEL: There are borderline dilated fluid-filled loops of small bowel which may represent mild enteritis. There is no obstruction. PELVIS: APPENDIX: No evidence of acute appendicitis. BLADDER: There is a trace amount of gas in the urinary bladder which may be from prior instrumentation. REPRODUCTIVE: Unremarkable as visualized. No mass. ABDOMEN and PELVIS: INTRAPERITONEAL SPACE: Unremarkable. No ascites or other fluid collection. No free air. BONES/JOINTS: Unremarkable. No suspicious lytic or blastic abnormality. SOFT TISSUES: Unremarkable. No discrete abdominal or pelvic wall hernia. VASCULATURE: Unremarkable. Abdominal aorta is non-dilated. LYMPH NODES: Unremarkable. No enlarged lymph nodes. CT/Abdomen/Pelvis without Cont IMPRESSION: Fluid-filled loops of small bowel with no evidence of mild enteritis. No other acute abnormalities are identified. Electronically Signed: Saad Alas MD at 12:08 EDT ,
[2022-02-09 11:07] LABS: Absolute Lymphocyte Count 0.33 X10^3/uL (0.83-4.51); Absolute Neutrophil Count 8.6 X10^3/uL (2.0-7.7); Basophil# 0.02 X10^3/uL; Basophil% 0.2 % (0-1); Hematocrit 40.9 % (40-54); Hemoglobin 13.9 g/dL (13.0-16.5); Lymphocyte # 0.33 X10^3/ul (0.83-4.51); Lymphocyte % 3.5 % (19-41); Mean Corpuscular Hgb 31.4 pg (27.0-32.0); Mean Corpuscular Volume 92.3 fL (80-94); Mean Platelet Vol. 9.5 fl (6.2-12.0); Monocyte# 0.43 X10^3/uL; Monocyte% 4.6 % (0-10); NRBC Flagged by Analyzer 0 % (0-5); Neutrophil # 8.63 X10^3/uL (2.7-7.7); Neutrophil % 91.3 % (47-70); POSITIVE DIFFERENTIAL YES; Platelet Count 104 K/mm3 (150-450); RBC Distribution Width CV 12.6 % (11.6-14.6); Red Blood Count 4.43 M/mm3 (4.6-6.2); White Blood Count 9.5 K/mm3 (4.4-11.0)
[2022-02-09] MEDS: 0.9% Normal Saline 1,000 ML 1000 ML IV (11:09)
[2022-02-09 11:12] LABS: International Normalized Ratio 1.4; Prothrombin Time (Protime)PT. 16.5 SECONDS (11.7-14.9)
[2022-02-09 11:18] LABS: ALB/GLOB Ratio 0.9 RATIO (0.9-2.4); AST(SGOT) 48 U/L (15-37); Alanine Aminotransfer ALT/SGPT 73 U/L (16-61); Albumin, Serum 3.1 g/dL (3.2-5.0); Alkaline Phosphatase 72 U/L (45-117); Anion Gap 8 (5-15); BUN 20 mg/dL (7-18); BUN/Creat Ratio 14.5 RATIO (10-20); Chloride 106 mmol/L (98-107); Creatinine, Serum 1.38 mg/dL (0.70-1.30); EST Glomerular Filtration Rate 56 mL/min (>60); Est Glom Filt Rate - Afr Amer 67 mL/min (>60); Globulin 3.5 g/dL (2.2-4.2); Glucose 108 mg/dL (74-106); Protein, Total 6.6 g/dL (6.4-8.2); Sodium Level 138 mmol/L (136-145)
[2022-02-09 11:19] LABS: Differential Indicated SCAN CRITERIA MET
[2022-02-09 11:23] LABS: Lactic Acid 1.2 mmol/L (0.4-1.9)
[2022-02-09 11:53] LABS: Platelet Estimate ADEQUATE (ADEQ)
[2022-02-09 11:54] LABS: Red Cell Morphology NORM C+C NORMAL (NORM C&C)
--- NOTE | 2022-02-09 13:48 | NURSING ---
DR BARRETT FOR DR MCDONALD
--- NOTE | 2022-02-09 14:00 | NURSING ---
MED SURG OBS TERELETSKY UTI
[2022-02-09] MEDS: Acetaminophen 325 MG Tablet 650 MG PO ×2 (14:56→20:57)
[2022-02-09] MEDS: 0.9% Normal Saline 1,000 ML 100 ML IV (15:01)
--- NOTE | 2022-02-09 17:48 | PCM.HP.STD ---
HPI - General General Date of Admission: 02/09/22 Date of Service: 02/09/22 Chief Complaint: positive blood culture HPI Narrative JERAMY WOOD, is a 61 M who presents to the ER here after being instructed to be seen because of a positive blood culture which was obtained yesterday after the patient was seen by the ER here for a cystitis and placed on Bactrim DS. Patient is asymptomatic, he is not having any chills or dysuria at this time and he has no urinary frequency. In addition, patient's preliminary urine culture yesterday grew out a Pseudomonas like organism. The ER physician care talked with infectious diseases today and they recommended use of cefepime due to the fact he is on flecainide (Cipro is contraindicated in patients on flecainide) Patient CBC showed normal white blood cell count today, patient was afebrile. Patient will be placed in observation status on MedSurg 3, he will be given cefepime and monitored, CBC will be repeated tomorrow. Patient will not be treated for gram-positive bacteremia at this point, he does not appear acutely ill at this time. [facility] Medical History Acute embolism and thrombosis of deep vein of distal lower extremity Cardiomyopathy in other diseases classified elsewhere Encounter for screening for COVID-19 Family history of hypertension Hyperlipidemia Palpitations Paroxysmal atrial fibrillation Pure hypercholesterolemia URI (upper respiratory infection) Home Medications aspirin 81 mg chewable tablet 81 mg PO DAILY@0800 10/04/15 [History Last Taken Unknown] diphenhydramine HCl 50 mg capsule 50 mg PO QHS 12/26/21 [History Last Taken Unknown] flecainide 100 mg tablet 100 mg PO BID #180 tabs 12/31/21 [Rx Last Taken Unknown] metoprolol tartrate 25 mg tablet 25 mg PO BID #180 tabs 12/31/21 [Rx Last Taken Unknown] pravastatin 10 mg tablet 10 mg PO QHS #90 tabs 12/31/21 [Rx Last Taken Unknown] tamsulosin 0.4 mg capsule 0.4 mg PO DAILY 02/09/22 [History Last Taken Unknown] Allergy/AdvReac Type Severity Reaction Status Date / Time No Known Allergies Allergy Verified 02/09/22 10:44 Family History Father Martha Gehrig disease Mother Myocardial infarction CAD (coronary artery disease) Brother Myocardial infarction, Onset Age: 60 Hypertension Multiple sclerosis Other Family history of hypertension Surgical History History of appendectomy History of left heart catheterization (LHC) Presence of IVC filter Social History Smoking Status: Never smoker alcohol intake: current alcohol intake frequency: a few times a week Alcohol type: beer substance use type: does not use caffeine: Yes Type: coffee Number of servings: 2 what type of physical activity do you participate in: none seatbelt use: always do you feel safe at home: Yes ROS Constitutional Constitutional: Denies anorexia, change in weight, fever(s), night sweats or weakness Eyes Eyes: Denies blurry vision, change in vision, discharge from eye(s) or eye pain Cardiovascular Cardiovascular: Denies chest pain, claudication, dyspnea on exertion, edema, lightheadedness or palpitations Respiratory/Chest Respiratory/Chest: Denies cough, excessive phlegm production, hemoptysis, shortness of breath at rest or shortness of breath with exertion Gastrointestinal Gastrointestinal: Denies abdominal pain, constipation, diarrhea, hematemesis, hematochezia, melena, nausea or vomiting Genitourinary Genitourinary: Denies dysuria, hematuria, urinary frequency, urinary hesitancy, urinary incontinence or urinary urgency Musculoskeletal Musculoskeletal: Denies back pain, joint pain, joint stiffness, joint swelling, myalgias or neck pain Neurologic Neurologic: Denies abnormal gait, abnormal speech, dizziness, focal weakness, headache(s), loss of vision, numbness, other visual disturbances, paresthesias, syncope or tingling Psychiatric Psychiatric: Denies anxiety, cognitive impairment, depression, irritability, mood swings or suicidal ideation Endocrine Endocrinology: Denies change in body appearance, cold intolerance, excessive sweating, heat intolerance, polydipsia or polyuria Hematologic/Lymphatic Hematologic/Lymphatic: Denies none, anemia, easy bleeding, easy bruising or lymphadenopathy Allergic/Immunologic Allergic/Immunologic: Denies rhinitis, urticaria, eczemia or asthma Vital Signs Vital Signs Vital Signs: 02/09/22 10:39 02/09/22 10:49 02/09/22 12:35 Temperature 96.5 F L 96.5 F L 98.1 F Temperature Source Temporal Temporal Temporal Pulse Rate 88 88 74 Respiratory Rate 18 18 16 Respiratory Effort Respiratory Depth Respiratory Pattern Blood Pressure 85/73 L 85/73 L 106/68 Blood Pressure Mean 77 77 80 Blood Pressure Source Blood Pressure Position Blood Pressure Location Pulse Ox 95 95 97 Oxygen Delivery Method Room Air Room Air Room Air 02/09/22 13:20 02/09/22 13:48 02/09/22 14:10 Temperature 98.3 F 98.3 F Temperature Source Oral Oral Pulse Rate 80 80 Respiratory Rate 16 16 Respiratory Effort Respiratory Depth Respiratory Pattern Blood Pressure 105/72 105/72 Blood Pressure Mean 83 83 Blood Pressure Source Blood Pressure Position Blood Pressure Location Pulse Ox 97 97 Oxygen Delivery Method Room Air Room Air 02/09/22 15:38 02/09/22 15:42 Temperature 99.2 F H Temperature Source Oral Pulse Rate 93 Respiratory Rate 16 Respiratory Effort Normal Non-Labored Respiratory Depth Normal Respiratory Pattern Normal Blood Pressure 116/72 Blood Pressure Mean 86 Blood Pressure Source Monitor Blood Pressure Position Semi-Fowlers Blood Pressure Location Right Arm Pulse Ox 97 Oxygen Delivery Method Room Air Room Air Weight Weight: 90 kg Body Mass Index (BMI) 26.9 Physical Exam Const alert, oriented x3, no apparent distress and healthy appearing General Appearance: cooperative, well kempt and well developed Orientation / Consciousness: awake, oriented to person, oriented to place and oriented to time HEENT normocephalic, head/scalp atraumatic, hearing grossly normal bilaterally and moist oral mucous membranes Eyes PERRL, EOMs intact bilaterally and conjunctivae normal Neck supple, no JVD, thyroid normal and no carotid bruits General: trachea midline Resp normal respiratory effort, no retractions, no use of accessory muscles and clear to auscultation bilaterally Auscultation: Negative for rales, rhonchi or wheezes Cardio regular rate, regular rhythm, S1 normal heart sound, S2 normal heart sound, no murmurs, no rub and no gallops GI normal to inspection, nondistended, normoactive bowel sounds, soft to palpation, non-tender and non-distended Extremity no clubbing, cyanosis or edema Skin no rashes or lesions noted General Skin Exam: no breakdown Neuro oriented x3, CN's II-XII intact bilaterally, no focal motor deficits and no sensory deficits noted Sensorium / Orientation: awake, alert, oriented to person and oriented to place Speech: speech normal Psych affect normal Results Lab / Micro Data Result Diagrams: 02/09/22 10:55 02/09/22 10:55 Labs: Laboratory Results - last 24 hr 02/09/22 10:55: WBC 9.5, RBC 4.43 L, Hgb 13.9, Hct 40.9, MCV 92.3, MCH 31.4, MCHC 34.0, RDW Std Deviation 43.0, RDW Coeff of Lance 12.6, Plt Count 104 L, MPV 9.5, Immature Gran % (Auto) 0.400, Neut % (Auto) 91.3 H, Lymph % (Auto) 3.5 L, [place] % (Auto) 4.6, Eos % (Auto) 0.0, Baso % (Auto) 0.2, Absolute Neuts (auto) 8.6 H, Absolute Lymphs (auto) 0.33 L, Nucleated RBC % 0, Platelet Estimate ADEQUATE, RBC Morphology NORM C+C 02/09/22 10:55: PT 16.5 H, INR 1.4 02/09/22 10:55: Sodium 138, Potassium 4.0, Chloride 106, Carbon Dioxide 24.0, Anion Gap 8, BUN 20 H, Creatinine 1.38 H, Estim Creat Clear Calc 61.70, Est GFR (MDRD) Af Amer 67, Est GFR (MDRD) Non-Af 56 L, BUN/Creatinine Ratio 14.5, Glucose 108 H, Calcium 9.0, Total Bilirubin 0.70, AST 48 H, ALT 73 H, Alkaline Phosphatase 72, Total Protein 6.6, Albumin 3.1 L, Globulin 3.5, Albumin/Globulin Ratio 0.9 02/09/22 10:55: Lactic Acid 1.2 Radiology Impression Abdomen/Pelvis CT 02/09/22 11:01 IMPRESSION: Fluid-filled loops of small bowel with no evidence of mild enteritis. No other acute abnormalities are identified. Electronically Signed: Saad Alas MD at 12:08 EDT , Assessment & Plan Assessment/Plan (1) Hemorrhagic cystitis: PLAN: Plan 1. Acute cystitis-exact organism unknown at this time, patient will be placed in observation status and placed on IV cefepime, CBC will be repeated in the morning, await final identification on urine culture #2 bacteremia-I suspect this may be fictitious, await for identification of positive blood culture results, patient does not look toxic at all and he is not running a temperature. I have elected not to place the patient on any gram-positive coverage for this result. 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 Charges/Coding Visit Charges OBSV E&M: 18347 Initial observation care L3
[2022-02-09] MEDS: Tamsulosin HCl 0.4 MG Capsule PO (18:24)
[2022-02-09] MEDS: Flecainide 100 MG Tablet PO (21:01)
[2022-02-09] MEDS: DiphenhydrAMINE 25 MG Capsule 50 MG PO (21:01)
[2022-02-09] MEDS: Metoprolol Tartrate 25 MG Tablet PO (21:01)
[2022-02-10] VITALS (8 sets, daily range): BP systolic 114–134; BP diastolic 71–84; PULSE 76–118; RESP 16–18; TEMP 36.7–38.2; O2SAT 93–97
[2022-02-10] MEDS: 0.9% Normal Saline 1,000 ML 100 ML IV (01:15)
[2022-02-10 05:17] LABS: Absolute Lymphocyte Count 0.63 X10^3/uL (0.83-4.51); Absolute Neutrophil Count 5.3 X10^3/uL (2.0-7.7); Basophil# 0.03 X10^3/uL; Basophil% 0.5 % (0-1); Eosinophil# 0.07 X10^3/uL; Eosinophils% 1.1 % (0-5); Hematocrit 37.8 % (40-54); Hemoglobin 12.9 g/dL (13.0-16.5); Lymphocyte # 0.63 X10^3/ul (0.83-4.51); Lymphocyte % 9.5 % (19-41); Mean Corp Hgb Conc 34.1 g/dL (32-36); Mean Corpuscular Hgb 31.5 pg (27.0-32.0); Mean Corpuscular Volume 92.4 fL (80-94); Mean Platelet Vol. 10.1 fl (6.2-12.0); Monocyte# 0.55 X10^3/uL; Monocyte% 8.3 % (0-10); NRBC Flagged by Analyzer 0 % (0-5); Neutrophil # 5.33 X10^3/uL (2.7-7.7); POSITIVE COUNT YES; Platelet Count 88 K/mm3 (150-450); RBC Distribution Width CV 12.8 % (11.6-14.6); RBC Distribution Width SD 43.8 fl (35.1-43.9); Red Blood Count 4.09 M/mm3 (4.6-6.2); White Blood Count 6.7 K/mm3 (4.4-11.0)
[2022-02-10 05:19] LABS: Differential Indicated SCAN CRITERIA MET
[2022-02-10 05:41] LABS: Anion Gap 7 (5-15); BUN 13 mg/dL (7-18); Calcium,Total 8.1 mg/dL (8.5-10.1); Chloride 108 mmol/L (98-107); Creatinine, Serum 1.18 mg/dL (0.70-1.30); EST Glomerular Filtration Rate 67 mL/min (>60); Est Glom Filt Rate - Afr Amer 81 mL/min (>60); Estimated Creatinine Clearance 72.16 ml/min; Glucose 93 mg/dL (74-106); Potassium 4.1 mmol/L (3.5-5.1); Sodium Level 139 mmol/L (136-145)
[2022-02-10 05:42] LABS: Platelet Estimate MOD DEC (ADEQ)
[2022-02-10] MEDS: Acetaminophen 325 MG Tablet 650 MG PO ×2 (08:17→23:42)
--- NOTE | 2022-02-10 10:00 | EKG12_ITS ---
Test Reason : AM EKG Blood Pressure : / mmHG Vent. Rate : 084 BPM Atrial Rate : 084 BPM P-R Int : 194 ms QRS Dur : 088 ms QT Int : 358 ms P-R-T Axes : 052 066 054 degrees QTc Int : 423 ms Normal sinus rhythm Normal ECG When compared with ECG of 08-FEB-2022 13:59, MANUAL COMPARISON REQUIRED, DATA IS UNCONFIRMED Confirmed by MIKE KESSLER, REED ([id number]), newspaper or periodical editor MELECIO ORTEGA ([id number]) on 02/12/2022 12:49:34 PM Referred By: NENA Confirmed By:REED MCKEON MD
[2022-02-10] MEDS: Flecainide 100 MG Tablet PO ×2 (10:15→22:16)
[2022-02-10] MEDS: Metoprolol Tartrate 25 MG Tablet PO ×2 (10:15→22:16)
--- NOTE | 2022-02-10 13:55 | NURSING ---
park services specialist called at this time. They will call back with an ETA when available.
[2022-02-10] MEDS: 0.9% Saline Lock 10 ML Syringe IV (14:35)
--- NOTE | 2022-02-10 15:14 | PCM.PN.HOSP ---
Subjective Subjective Patient was seen and examined today, I had a long conversation with the patient's who was in the room at the time of my examination. Patient's urine culture resulted finally showing Pseudomonas aeruginosa, the blood culture now showing preliminary gram-negative vickie possible Pseudomonas and gram-positive cocci possible Enterococcus. Patient does not look ill, he is afebrile, his white blood cell count today was normal. Patient's urine culture from yesterday shows no growth at this time. I talked briefly by phone with infectious diseases informally and they suggested changing the patient's antibiotic to Zosyn and stopping the cefepime, patient will need midline placed for home antibiotic administration. He is agreed to this and the is okay with this also. Objective Data Objective Data Vital Signs: Vital Signs Temp Pulse Resp BP Pulse Ox O2 Del Method 98.1 F 76 16 119/76 97 Room Air 02/10/22 14:44 02/10/22 14:44 02/10/22 14:44 02/10/22 14:44 02/10/22 14:44 02/10/22 14:44 Oxygen Delivery Method Room Air Weight: 90 kg Body Mass Index (BMI) 26.9 Intake & Output: Intake and Output for Last 24 Hours 02/08/22 02/09/22 02/10/22 23:59 23:59 23:59 Intake Total 1699 3200 / 3200 Balance 1699 3200 / 3200 Lab / Micro Data Result Diagrams: 02/10/22 04:25 02/10/22 04:25 Labs: Laboratory Results - last 24 hr 02/10/22 04:25: WBC 6.7, RBC 4.09 L, Hgb 12.9 L, Hct 37.8 L, MCV 92.4, MCH 31.5, MCHC 34.1, RDW Std Deviation 43.8, RDW Coeff of Lance 12.8, Plt Count 88 L, MPV 10.1, Immature Gran % (Auto) 0.600, Neut % (Auto) 80.0 H, Lymph % (Auto) 9.5 L, [place] % (Auto) 8.3, Eos % (Auto) 1.1, Baso % (Auto) 0.5, Absolute Neuts (auto) 5.3, Absolute Lymphs (auto) 0.63 L, Nucleated RBC % 0, Platelet Estimate MOD DEC 02/10/22 04:25: Sodium 139, Potassium 4.1, Chloride 108 H, Carbon Dioxide 24.0, Anion Gap 7, BUN 13, Creatinine 1.18, Estim Creat Clear Calc 72.16, Est GFR (MDRD) Af Amer 81, Est GFR (MDRD) Non-Af 67, BUN/Creatinine Ratio 11.0, Glucose 93, Calcium 8.1 L Micro: Microbiology 02/09/22 15:10 Urine, Clean Catch Urine Culture - Preliminary Culture exhibits no growth. Physical Exam Const alert, oriented x3, no apparent distress and healthy appearing General Appearance: cooperative, well kempt and well developed Orientation / Consciousness: awake, oriented to person, oriented to place and oriented to time HEENT normocephalic and moist oral mucous membranes Eyes PERRL, EOMs intact bilaterally and conjunctivae normal Neck supple, no JVD, thyroid normal and no carotid bruits General: trachea midline Resp normal respiratory effort and clear to auscultation bilaterally Auscultation: Negative for rales, rhonchi or wheezes Cardio regular rate, regular rhythm, no murmurs, no rub and no gallops GI normal to inspection, nondistended, normoactive bowel sounds, soft to palpation, non-tender and non-distended Extremity no clubbing, cyanosis or edema Skin no rashes or lesions noted General Skin Exam: no breakdown Neuro oriented x3, CN's II-XII intact bilaterally, no focal motor deficits and no sensory deficits noted Sensorium / Orientation: awake and alert Speech: speech normal Psych affect normal Assessment & Plan Assessment/Plan (1) Hemorrhagic cystitis: PLAN: Plan 1. Acute cystitis-secondary to Pseudomonas, again patient cannot be placed on oral antibiotics for Pseudomonas due to the fact he is taking flecainide, patient will have a midline catheter placed today and his antibiotics were changed to Zosyn from cefepime. 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 Charges/Coding Visit Charges Inpatient E&M: 47571 Subs Hosp L2
[2022-02-10] MEDS: Tamsulosin HCl 0.4 MG Capsule PO (18:29)
[2022-02-10] MEDS: Ondansetron 4 MG/2 ML Vial IV (19:53)
[2022-02-10] MEDS: LORazepam 2 MG/ML Syringe 1 MG IV (21:07)
[2022-02-10] MEDS: proCHLORPERazine 10 MG/2 ML Vial 5 MG IV (21:07)
[2022-02-10] MEDS: DiphenhydrAMINE 25 MG Capsule 50 MG PO (22:16)
[2022-02-11] VITALS (8 sets, daily range): BP systolic 107–123; BP diastolic 59–80; PULSE 84–109; RESP 16–20; TEMP 36.9–37.7; O2SAT 93–97
--- NOTE | 2022-02-11 02:15 | PCM.RX.CS ---
Consult Pharmacy has been consulted to manage selected antiobiotic: Vancomycin Type of Consult: New start Suspected Infection: Other Prior Doses of Antibiotics Received/Current Regimen: Medications Vancomycin HCl 1,250 mg/ (Sodium Chloride) 275 mls @ 167 mls/hr IV Q12H ANNA Vancomycin HCl 2,000 mg/ (Sodium Chloride) 540 mls @ 250 mls/hr IV X1 ONE Stop: 02/11/22 03:39 Last Admin: 02/11/22 01:49 Dose: 250 mls/hr Labs: Sodium 139 mmol/L (136-145) 02/10/22 04:25 Potassium 4.1 mmol/L (3.5-5.1) 02/10/22 04:25 Chloride 108 mmol/L (98-107) H 02/10/22 04:25 Carbon Dioxide 24.0 mmol/L (21.0-32.0) 02/10/22 04:25 Anion Gap 7 (5-15) 02/10/22 04:25 BUN 13 mg/dL (7-18) 02/10/22 04:25 Creatinine 1.18 mg/dL (0.70-1.30) 02/10/22 04:25 Est GFR (MDRD) Af Amer 81 mL/min (>60) 02/10/22 04:25 Est GFR (MDRD) Non-Af 67 mL/min (>60) 02/10/22 04:25 BUN/Creatinine Ratio 11.0 RATIO (10-20) 02/10/22 04:25 Glucose 93 mg/dL (74-106) 02/10/22 04:25 Microbiology: Microbiology 02/10/22 20:45 Stool Enteric Bacteriology - Final 02/10/22 20:45 Stool C. difficile DNA Amplification - Final 02/09/22 15:10 Urine, Clean Catch Urine Culture - Preliminary Culture exhibits no growth. Weight used for dosin kg Estimated Creatinine Clearance: 72 Goal Trough: 15-20 mcg/mL Pharmacy Plan for Drug Dosing: Pharmacy Service will continue to monitor and adjust dosing as required. Follow-Up Labs: Trough Vancomycin Labs to be done on [date and time ordered]: 02/12/22 @1330
--- NOTE | 2022-02-11 07:26 | PCM.PN.HOSP ---
Subjective Subjective Patient is a 61-year-old gentleman currently diagnosed with acute cystitis was brought back to the hospital after cultures came back positive for Pseudomonas in the urine and blood Objective Data Objective Data Vital Signs: Vital Signs Temp Pulse Resp BP Pulse Ox O2 Del Method 99.0 F 91 18 107/59 L 94 Room Air 02/11/22 05:36 02/11/22 05:36 02/11/22 05:36 02/11/22 05:36 02/11/22 05:36 02/11/22 05:36 Oxygen Delivery Method Room Air Weight: 90 kg Body Mass Index (BMI) 26.9 Intake & Output: Intake and Output for Last 24 Hours 02/09/22 02/10/22 02/11/22 23:59 23:59 23:59 Intake Total 1699 3750 / 3750 890 / 890 Balance 1699 3750 / 3750 890 / 890 Lab / Micro Data Result Diagrams: 02/10/22 04:25 02/10/22 04:25 Micro: Microbiology 02/10/22 20:45 Stool Enteric Bacteriology - Final 02/10/22 20:45 Stool C. difficile DNA Amplification - Final 02/09/22 15:10 Urine, Clean Catch Urine Culture - Preliminary Culture exhibits no growth. Physical Exam Narrative GENERAL: cooperative HEENT: Atraumatic; normocephalic EYES; Anicteric, Normal Conjunctiva NECK; supple, normal thyroid, RESPIRATORY: Diminished to auscultation CARDIOVASCULAR: Regular S1 S2, GI: soft, normoactive bowel sounds, : No Renal angle tenderness; EXTREMITIES: No edema, no clubbing, MUSCULOSKELETAL: no muscle wasting NEURO: Awake; no lateralizing signs. SKIN: No Rash PSYCH; Flat affect Assessment & Plan Assessment/Plan (1) Hemorrhagic cystitis: PLAN: Plan Patient is a 61-year-old gentleman currently diagnosed with acute cystitis was brought back to the hospital after cultures came back positive for Pseudomonas in the urine and blood 1. Acute cystitis with Pseudomonas ? Patient admitted for midline placement and initiation of antibiotics. Patient currently on Zosyn consult placed to infectious disease 2. Pseudomonas bacteremia ? Secondary to patient cystitis 3. Paroxysmal A. fib ? Patient rate controlled on flecainide not on systemic anticoagulation 4. BPH ? Patient is on Flomax discontinued 5. Dyslipidemia -Patient is on statin therapy, continued at home dose 6. Hypertension - Blood pressure controlled, home medications continued with dose adjustment as needed 7. DVT prophylaxis ? Low risk encourage early ambulation Charges/Coding Visit Charges Inpatient E&M: 66156 Subs Hosp L3
[2022-02-11] MEDS: Flecainide 100 MG Tablet PO ×2 (10:01→21:25)
[2022-02-11] MEDS: Metoprolol Tartrate 25 MG Tablet PO ×2 (10:01→21:25)
[2022-02-11] MEDS: 0.9% Saline Lock 10 ML Syringe IV (13:20)
--- NOTE | 2022-02-11 13:58 | CASEMGMT ---
SACHIN BRIZUELA Assessment: Face to Face with pt for initial transition planning/care coordination assessment. RN GELACIO introduced self and role at [facility], pt voices understanding and consents to assessment. Pt is A/O x4 and answers all questions appropriately at this time. Pt sitting up in chair in no distress. Care providers, pharmacy, and demographics verified/updated. Admitting Dx: cystitis PCP:Lloyd Specialists:[facility], uro; [facility], cardio Preferred Pharmacy: [facility] Retail Insurance: [employer] Prescription Benefit: yes LW/HPOA: Pt denies having a LW/DPOA and denies need for info regarding AD. LNOK: Glenys Garcia, Living Arrangements: Pt lives with in a single story house with a couple of steps to enter. Pt reports he is I in ADL's and denies concerns at home. Transportation: Pt drives self and denies concerns with transportation. DME/HHC/SNF: Pt denies having any DME in the home. He states he has had previous HHC but does not know which agency was set up, denies SNF stays. Pt states no concerns with going home at time of dc. Discussed the possibility of IV antibiotics. He states that ID is seeing if he could go home on oral antibiotics. Discussed HHC should pt need IV's at home. Pt states he has a few nurse friends who can administer meds. Discussed the outpt infusion center being a possibility pending on the frequency of med. Will see final recommendation before determinging plan. Pt states that his has questions regarding inpatient vs observation status. TC to pt , discussed and answered all questions. Pt states no further concerns/needs. CM to follow. Advised pt to ask CM if any further question/concerns/needs arise, voices understanding. Pt Goal: Home Plan: Home vs Home with HHC vs Home with outpt infusion center
--- NOTE | 2022-02-11 14:38 | CON.PCM.ID_ITS ---
Assessment & Plan Assessment/Plan (1) Hemorrhagic cystitis: (2) Bacteremia: PLAN: PsA and enterococcal bacteremia from urinary source, possible infected stone. Feeling better. Will stop vanc. Cont zosyn. QTC here is 410, so likely would be low risk of complications with po cipro or levaquin at discharge. Cdiff neg, monitoring diarrhea. Will follow, thank you, d/w case packer HPI Consult Data Date of Consult: 02/11/22 HPI Narrative Reason for Consultation: bacteremia HPI Narrative: JERAMY WOOD, is a 61 M who presented 02/09 with 5 days of fatigue, associated with progressive fever, chills/sweats, dysuria, blood in urine. Recently changed to flomax which had helped his urination. Reports lower back pain where he just could not get comfortable. Seen in ED, sent back with (+) bcxs. Admitted on cefepime, did not feel any better, cxs came back, changed to vanc/zosyn. Some new diarrhea, no abd pain or blood in stool. Cdiff neg. Feeling better this AM, but still some loose stool. Full ROS performed and neg except as noted above. 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 Cardiomyopathy in other diseases classified elsewhere Encounter for screening for COVID-19 Family history of hypertension Hyperlipidemia Palpitations Paroxysmal atrial fibrillation Pure hypercholesterolemia URI (upper respiratory infection) Home Medications aspirin 81 mg chewable tablet 81 mg PO DAILY@0800 10/04/15 [History Last Taken Unknown] diphenhydramine HCl 50 mg capsule 50 mg PO QHS 12/26/21 [History Last Taken Unknown] flecainide 100 mg tablet 100 mg PO BID #180 tabs 12/31/21 [Rx Last Taken Unknown] metoprolol tartrate 25 mg tablet 25 mg PO BID #180 tabs 12/31/21 [Rx Last Taken Unknown] pravastatin 10 mg tablet 10 mg PO QHS #90 tabs 12/31/21 [Rx Last Taken Unknown] tamsulosin 0.4 mg capsule 0.4 mg PO DAILY 02/09/22 [History Last Taken Unknown] Allergy/AdvReac Type Severity Reaction Status Date / Time No Known Allergies Allergy Verified 02/09/22 10:44 Family History Father Martha Gehrig disease Mother Myocardial infarction CAD (coronary artery disease) Brother Myocardial infarction, Onset Age: 60 Hypertension Multiple sclerosis Other Family history of hypertension Surgical History History of appendectomy History of left heart catheterization (LHC) Presence of IVC filter Social History Smoking Status: Never smoker alcohol intake: current alcohol intake frequency: a few times a week Alcohol type: beer substance use type: does not use caffeine: Yes Type: coffee Number of servings: 2 what type of physical activity do you participate in: none seatbelt use: always do you feel safe at home: Yes Physical Exam Const alert, oriented x3 and no apparent distress General Appearance: cooperative HEENT normocephalic and head/scalp atraumatic Eyes PERRL and EOMs intact bilaterally Neck supple and No nodes Resp normal air movement and clear to auscultation bilaterally Cardio regular rate and regular rhythm GI soft to palpation, non-tender and non-distended Extremity General Extremity: Negative for edema Skin no rashes or lesions noted Neuro CN's II-XII intact bilaterally Lab / Micro Data Attestation: I reviewed the patient's lab results. Result Diagrams: 02/10/22 04:25 02/10/22 04:25 Micro: Microbiology 02/10/22 20:45 Stool Enteric Bacteriology - Final 02/10/22 20:45 Stool C. difficile DNA Amplification - Final
[2022-02-11] MEDS: guaiFENesin 600 MG Tablet PO ×2 (14:54→21:25)
[2022-02-11] MEDS: Tamsulosin HCl 0.4 MG Capsule PO (17:35)
[2022-02-11] MEDS: Acetaminophen 325 MG Tablet 650 MG PO (20:35)
[2022-02-11] MEDS: DiphenhydrAMINE 25 MG Capsule 50 MG PO (21:25)
[2022-02-12 02:35] VITALS: BP 109/71; PULSE 72; RESP 16; TEMP 37; O2SAT 97
[2022-02-12 06:36] LABS: Absolute Lymphocyte Count 0.96 X10^3/uL (0.83-4.51); Absolute Neutrophil Count 2.8 X10^3/uL (2.0-7.7); Basophil# 0.03 X10^3/uL; Basophil% 0.6 % (0-1); Eosinophil# 0.22 X10^3/uL; Eosinophils% 4.7 % (0-5); Hematocrit 40.3 % (40-54); Hemoglobin 13.9 g/dL (13.0-16.5); Lymphocyte # 0.96 X10^3/ul (0.83-4.51); Lymphocyte % 20.7 % (19-41); Mean Corp Hgb Conc 34.5 g/dL (32-36); Mean Corpuscular Hgb 32.3 pg (27.0-32.0); Mean Corpuscular Volume 93.7 fL (80-94); Mean Platelet Vol. 9.7 fl (6.2-12.0); Monocyte# 0.56 X10^3/uL; Monocyte% 12.1 % (0-10); NRBC Flagged by Analyzer 0 % (0-5); Neutrophil # 2.84 X10^3/uL (2.7-7.7); Neutrophil % 61.3 % (47-70); Platelet Count 109 K/mm3 (150-450); RBC Distribution Width SD 44.6 fl (35.1-43.9); White Blood Count 4.6 K/mm3 (4.4-11.0)
[2022-02-12 07:10] LABS: Anion Gap 7 (5-15); BUN 18 mg/dL (7-18); BUN/Creat Ratio 8.9 RATIO (10-20); Calcium,Total 8.4 mg/dL (8.5-10.1); Chloride 112 mmol/L (98-107); Creatinine, Serum 2.02 mg/dL (0.70-1.30); EST Glomerular Filtration Rate 36 mL/min (>60); Est Glom Filt Rate - Afr Amer 43 mL/min (>60); Estimated Creatinine Clearance 42.15 ml/min; Glucose 88 mg/dL (74-106); Magnesium 1.9 mg/dL (1.6-2.6); Phosphorus 2.6 mg/dL (2.5-4.9); Potassium 3.7 mmol/L (3.5-5.1); Sodium Level 143 mmol/L (136-145)
--- NOTE | 2022-02-12 07:32 | PCM.PN.HOSP ---
Subjective Subjective Patient seen complains of several loose bowel movements since 9 PM. Kidney function is worsening. Patient started on IV fluid did request for stool for C. difficile positive request for COVID 19 assay. Objective Data Objective Data Vital Signs: Vital Signs Temp Pulse Resp BP Pulse Ox O2 Del Method 98.6 F 72 16 109/71 97 Room Air 02/12/22 02:35 02/12/22 02:35 02/12/22 02:35 02/12/22 02:35 02/12/22 02:35 02/12/22 02:35 Oxygen Delivery Method Room Air Weight: 90 kg Body Mass Index (BMI) 26.9 Intake & Output: Intake and Output for Last 24 Hours 02/10/22 02/11/22 02/12/22 23:59 23:59 23:59 Intake Total 3750 / 3750 1989 50 / 50 Balance 3750 / 3750 1989 50 50 Lab / Micro Data Result Diagrams: 02/12/22 05:48 02/12/22 05:48 Labs: Laboratory Results - last 24 hr 02/12/22 05:48: WBC 4.6, RBC 4.30 L, Hgb 13.9, Hct 40.3, MCV 93.7, MCH 32.3 H, MCHC 34.5, RDW Std Deviation 44.6 H, RDW Coeff of Lance 13.0, Plt Count 109 L, MPV 9.7, Immature Gran % (Auto) 0.600, Neut % (Auto) 61.3, Lymph % (Auto) 20.7, [place] % (Auto) 12.1 H, Eos % (Auto) 4.7, Baso % (Auto) 0.6, Absolute Neuts (auto) 2.8, Absolute Lymphs (auto) 0.96, Nucleated RBC % 0 02/12/22 05:48: Sodium 143, Potassium 3.7, Chloride 112 H, Carbon Dioxide 24.0, Anion Gap 7, BUN 18, Creatinine 2.02 H, Estim Creat Clear Calc 42.15, Est GFR (MDRD) Af Amer 43 L, Est GFR (MDRD) Non-Af 36 L, BUN/Creatinine Ratio 8.9 L, Glucose 88, Calcium 8.4 L, Phosphorus 2.6, Magnesium 1.9 Micro: Microbiology 02/10/22 20:45 Stool Enteric Bacteriology - Final 02/10/22 20:45 Stool C. difficile DNA Amplification - Final 02/09/22 15:10 Urine, Clean Catch Urine Culture - Preliminary Culture exhibits no growth. Physical Exam Narrative GENERAL: cooperative HEENT: Atraumatic; normocephalic EYES; Anicteric, Normal Conjunctiva NECK; supple, normal thyroid, RESPIRATORY: Diminished to auscultation CARDIOVASCULAR: Regular S1 S2, GI: soft, normoactive bowel sounds, : No Renal angle tenderness; EXTREMITIES: No edema, no clubbing, MUSCULOSKELETAL: no muscle wasting NEURO: Awake; no lateralizing signs. SKIN: No Rash PSYCH; Flat affect Assessment & Plan Assessment/Plan (1) Hemorrhagic cystitis: PLAN: Plan Patient is a 61-year-old gentleman currently diagnosed with acute cystitis was brought back to the hospital after cultures came back positive for Pseudomonas in the urine and blood 1. Acute cystitis with Pseudomonas ? Patient admitted for midline placement and initiation of antibiotics. Patient currently on Zosyn consult placed to infectious disease 2. Pseudomonas bacteremia ? Secondary to patient cystitis 3. Paroxysmal A. fib ? Patient rate controlled on flecainide not on systemic anticoagulation 4. BPH ? Patient is on Flomax discontinued 5. Dyslipidemia -Patient is on statin therapy, continued at home dose 6. Hypertension - Blood pressure controlled, home medications continued with dose adjustment as needed 7. DVT prophylaxis ? Low risk encourage early ambulation 8. Acute renal failure ? Secondary to dehydration from diarrhea patient started on IV fluid ordered renal ultrasound with consultation placed to nephrology 9. Acute diarrhea -equested for stool for C. difficile as well as stool studies COVID 19 patient treated with IV fluid pending results of stool studies Charges/Coding Visit Charges Inpatient E&M: 41312 [facility] Hosp L3
--- NOTE | 2022-02-12 07:35 | US_ITS ---
STUDY: RENAL ULTRASOUND - COMPLETE REASON FOR EXAM: Male, 61 years old. Renal failure. Recent UTI. Patient previously on dialysis. TECHNIQUE: Ultrasound evaluation of the kidneys was performed with real-time and static gatica-scale imaging. COMPARISON: CT of the abdomen and pelvis, 02/09/2022. FINDINGS: RIGHT KIDNEY: Normal location of the right kidney, which is normal in size. The right kidney measures 11.1 cm. There is a normal cortex of the right kidney. Prominent column of KATT. The renal cortex measures 1.1 cm. There is no right renal mass or cyst. There are no right renal calculi. There is no right hydronephrosis. DISTAL RIGHT URETER: There is non-visualization of the distal right ureter. There is no demonstrated right ureterovesical junction calculus. There is a visualized right ureteral jet. LEFT KIDNEY: Normal location of the left kidney, which is normal in size. The left kidney measures 12.1 cm. There is a normal cortex of the left kidney. The renal cortex measures 1.6 cm. There is no left renal mass or cyst. There are no left renal calculi. There is no left hydronephrosis. DISTAL LEFT URETER: There is non-visualization of the distal left ureter. There is no demonstrated left ureterovesical junction calculus. There is a visualized left ureteral jet. BLADDER: The distended urinary bladder has a volume of 195 ml. There is a normal wall thickness of the distended urinary bladder. There is no demonstrated mass within the urinary bladder. There are no demonstrated bladder calculi. The prostate is enlarged volume of 46.2 mL US/Kidney and Bladder IMPRESSION: 1. Normal ultrasound of the kidneys and urinary bladder. A small nonobstructing calculus in the mid left kidney, seen on CT, is not appreciated sonographically. Electronically Signed: Cade Sotomayor DO at 19:19 EDT Reading Location ID and State: [facility] / [place] Tel [phone], Service support ,
[2022-02-12] MEDS: 0.9% Normal Saline 1,000 ML 150 ML IV ×2 (09:53→17:25)
[2022-02-12 10:00] VITALS: BP 117/80; PULSE 95; RESP 18; TEMP 36.7; O2SAT 97
[2022-02-12 10:12] VITALS: BP 117/80; PULSE 95
[2022-02-12] MEDS: guaiFENesin 600 MG Tablet PO ×2 (10:12→21:33)
[2022-02-12] MEDS: Metoprolol Tartrate 25 MG Tablet PO ×2 (10:12→21:33)
[2022-02-12] MEDS: Flecainide 100 MG Tablet PO ×2 (10:12→21:33)
--- NOTE | 2022-02-12 11:13 | CON.PCM.RE_ITS ---
Assessment & Plan Assessment/Plan (1) GO (acute kidney injury): (2) Acute cystitis: (3) Bacteremia: (4) Diarrhea: PLAN: Plan For acute kidney injury, this is likely multifactorial from significant volume depletion with poor oral intake and diarrhea. Infection may also be contributing to GO. Patient's baseline creatinine is around 1.1 to 1.3 mg/dL dating back to 2012. On 02/08 creatinine 1.30 mg/dL, on 02/10/2022 creatinine 1.18 mg/dL, no creatinine drawn on 02/11, labs today creatinine is up to 2.02 mg/dL. Initial UA in ER +30 protein, occult blood 250, >100 RBC and leukocyte esterase (patient reports was having dysuria and noted some hematuria when in ER; patient reports no further hematuria or dysuria at this time), urine culture in the emergency room positive for Pseudomonas, repeat urine culture so far no growth. C. difficile negative. Patient was started on IV fluids this morning. Recommend to continue with IV fluids as ordered. He is not on any diuretics, CAN or ARB's. Blood pressures acceptable currently on Lopressor. Patient has a history of urinary retention and is on Flomax. Patient had noncontrast CT of abdomen and pelvis which did show nonobstructing calyceal stone in left kidney, normal renal size and position; renal ultrasound ordered. If unable to have renal US done today then will do bladder scan post void. Given history of urinary retention, we will rule out obstructive uropathy contributing to GO. Encouraged patient to try and increase solute and fluid intake as best as he can. He is now taking a probiotic. At this time there is no acute indication f or CURTAIN CUTTER, no overt fluid overload in fact patient appears hypovolemic on exam. He is nonoliguric. Recommend strict urine output measurement. There is no significant uremic symptoms, hyperkalemia or acidemia. Further orders forthcoming as hospitalization evolves, thank you for allowing us to participate in the care of Mr. Wood. HPI Consult Data Date of Consult: 02/12/22 HPI Narrative HPI Narrative: JERAMY WOOD, is a 61 M who presented to the emergency room with complaints of fever, chills and fatigue. Initially seen in the emergency room on 02/08. Had blood cultures drawn and discharged to home on Bactrim and Pyridium. Patient then returned to the emergency room next day as preliminary blood cultures positive for Pseudomonas. He was admitted for cystitis. Patient was initially started on cefepime. Infectious disease has been consulted. Patient is on Zosyn. Vancomycin has been stopped. We were consulted for acute kidney injury. Patient reports he does not routinely see a sterile processing technologist. Patient does report that about 10 years ago he was admitted to [facility], underwent bowel surgery, became septic, also was being treated for C. difficile infection and also developed dialysis requiring acute kidney injury. Patient reports he required dialysis for about 4 weeks when at [facility] but by time of hospital discharge renal function had improved and he did not require any further dialysis. Patient denies any vomiting. Reports that in the last 24 hours he has had 30 loose bowel movements. He has developed a dry cough. Denies any abdominal pain. Reports he was having some back pain, dysuria and hematuria in the ER but no further dysuria or hematuria. No recent NSAIDs. 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 Cardiomyopathy in other diseases classified elsewhere Encounter for screening for COVID-19 Family history of hypertension Hyperlipidemia Palpitations Paroxysmal atrial fibrillation Pure hypercholesterolemia URI (upper respiratory infection) Home Medications aspirin 81 mg chewable tablet 81 mg PO DAILY@0800 10/04/15 [History Last Taken Unknown] diphenhydramine HCl 50 mg capsule 50 mg PO QHS 12/26/21 [History Last Taken Unknown] flecainide 100 mg tablet 100 mg PO BID #180 tabs 12/31/21 [Rx Last Taken Unknown] metoprolol tartrate 25 mg tablet 25 mg PO BID #180 tabs 12/31/21 [Rx Last Taken Unknown] pravastatin 10 mg tablet 10 mg PO QHS #90 tabs 12/31/21 [Rx Last Taken Unknown] tamsulosin 0.4 mg capsule 0.4 mg PO DAILY 02/09/22 [History Last Taken Unknown] Allergy/AdvReac Type Severity Reaction Status Date / Time No Known Allergies Allergy Verified 02/09/22 10:44 Family History Father Martha Gehrig disease Mother Myocardial infarction CAD (coronary artery disease) Brother Myocardial infarction, Onset Age: 60 Hypertension Multiple sclerosis Other Family history of hypertension Surgical History History of appendectomy History of left heart catheterization (LHC) Presence of IVC filter Social History Smoking Status: Never smoker alcohol intake: current alcohol intake frequency: a few times a week Alcohol type: beer substance use type: does not use caffeine: Yes Type: coffee Number of servings: 2 what type of physical activity do you participate in: none seatbelt use: always do you feel safe at home: Yes ROS ROS Narrative As per HPI and past medical history Physical Exam Narrative Const: Alert and oriented x3, no apparent distress Cardio: S1, S2, RRR Respiratory: Lung sounds clear anteriorly and posteriorly GI: Abdomen soft, nontender Extremities: No pitting edema noted bilateral lower legs or feet Lab / Micro Data Result Diagrams: 02/12/22 05:48 02/12/22 05:48 Labs: Laboratory Results - last 24 hr 02/12/22 05:48: WBC 4.6, RBC 4.30 L, Hgb 13.9, Hct 40.3, MCV 93.7, MCH 32.3 H, MCHC 34.5, RDW Std Deviation 44.6 H, RDW Coeff of Lance 13.0, Plt Count 109 L, MPV 9.7, Immature Gran % (Auto) 0.600, Neut % (Auto) 61.3, Lymph % (Auto) 20.7, Harvey % (Auto) 12.1 H, Eos % (Auto) 4.7, Baso % (Auto) 0.6, Absolute Neuts (auto) 2.8, Absolute Lymphs (auto) 0.96, Nucleated RBC % 0 02/12/22 05:48: Sodium 143, Potassium 3.7, Chloride 112 H, Carbon Dioxide 24.0, Anion Gap 7, BUN 18, Creatinine 2.02 H, Estim Creat Clear Calc 42.15, Est GFR (MDRD) Af Amer 43 L, Est GFR (MDRD) Non-Af 36 L, BUN/Creatinine Ratio 8.9 L, Glucose 88, Calcium 8.4 L, Phosphorus 2.6, Magnesium 1.9 Micro: Microbiology 02/09/22 15:10 Urine, Clean Catch Urine Culture - Final Culture exhibits no growth.
--- NOTE | 2022-02-12 12:22 | RAD_ITS ---
INDICATION: cough EXAMINATION/TECHNIQUE: X-RAY - XR Chest 1 View COMPARISON: 02/08/2022. FINDINGS: The lungs are clear. The cardiomediastinal silhouette is unremarkable. No pleural effusion or pneumothorax. Degenerative changes of the thoracic spine. RAD/Chest 1 View (Portable) IMPRESSION: No acute radiographic abnormalities. Electronically Signed: Herbie Gonzalez MD at 16:51 EDT ,
--- NOTE | 2022-02-12 12:51 | PCM.PN.ID ---
Physical Exam Narrative More cough. Covid test sent this AM. No fever, no abd pain. Diarrhea is a little better. Const alert and no apparent distress Resp clear to auscultation bilaterally Auscultation: diminished lung sounds Cardio regular rate and regular rhythm GI soft to palpation, non-tender and non-distended Skin no rashes or lesions noted ID ID: Route of nutrition/ use of supplements: [] Nutritional Intake: [] IV Site: [] [place] Catheter: [] Assessment & Plan Assessment/Plan (1) Hemorrhagic cystitis: (2) Bacteremia: PLAN: PsA and enterococcal bacteremia from urinary source, possible infected stone vs BPH/prostatitis. Feeling better. Cont zosyn. QTC here is 410, so likely would be low risk of complications with short course po levaquin at discharge. Cdiff neg, monitoring diarrhea. Neph consulted for GO. Covid pending. Will follow, d/w social work case manager
[2022-02-12] MEDS: Menthol/Lanolin/Calamine/Znox 113 GM Tube 1 APPLIC TOPICAL ×2 (15:13→21:34)
[2022-02-12] MEDS: Acetaminophen 325 MG Tablet 650 MG PO (15:14)
[2022-02-12 15:32] VITALS: BP 127/80; PULSE 95; RESP 17; TEMP 36.9; O2SAT 96
[2022-02-12] MEDS: Tamsulosin HCl 0.4 MG Capsule PO (17:50)
[2022-02-12] MEDS: guaiFENesin Dm 10 ML UDC PO (17:50)
[2022-02-12] MEDS: 0.9% Saline Lock 10 ML Syringe IV (20:20)
[2022-02-12] MEDS: Ondansetron 4 MG/2 ML Vial IV (20:20)
[2022-02-12 20:29] VITALS: BP 143/88; PULSE 77; RESP 16; TEMP 36.9; O2SAT 97
[2022-02-12 21:33] VITALS: PULSE 77
[2022-02-12] MEDS: DiphenhydrAMINE 25 MG Capsule 50 MG PO (21:33)
[2022-02-13] MEDS: Acetaminophen 325 MG Tablet 650 MG PO ×2 (00:48→12:08)
[2022-02-13] MEDS: 0.9% Normal Saline 1,000 ML 150 ML IV ×2 (00:48→07:31)
[2022-02-13 02:30] VITALS: BP 128/87; PULSE 79; RESP 14; TEMP 36.7; O2SAT 95
--- NOTE | 2022-02-13 07:25 | PCM.PN.HOSP ---
Subjective Subjective Patient seen, admit to overall clinical condition being much improved. Creatinine is down to 1.6's. Stool studies came back unremarkable chest x-ray also unremarkable plan is to assess for possible discharge after discussion with ID Objective Data Objective Data Vital Signs: Vital Signs Temp Pulse Resp BP Pulse Ox O2 Del Method 98.1 F 79 14 128/87 H 95 Room Air 02/13/22 02:30 02/13/22 02:30 02/13/22 02:30 02/13/22 02:30 02/13/22 02:30 02/13/22 02:30 Oxygen Delivery Method Room Air Weight: 90 kg Body Mass Index (BMI) 26.9 Intake & Output: Intake and Output for Last 24 Hours 02/11/22 02/12/22 02/13/22 23:59 23:59 23:59 Intake Total 1989 1150 / 1150 1050 / 1050 Output Total 775 / 775 675 / 675 Balance 1989 375 / 375 375 / 375 Lab / Micro Data Result Diagrams: 02/13/22 06:10 02/13/22 06:10 Labs: Laboratory Results - last 24 hr 02/12/22 11:45: COVID-19 (JENNIFER) Not Detected Micro: Microbiology 02/12/22 12:35 Stool C. difficile DNA Amplification - Final 02/09/22 15:10 Urine, Clean Catch Urine Culture - Final Culture exhibits no growth. 02/10/22 20:45 Stool Enteric Bacteriology - Final 02/10/22 20:45 Stool C. difficile DNA Amplification - Final Radiography Diagnostic Testing: Radiology Impression Renal Ultrasound 02/12/22 07:35 IMPRESSION: 1. Normal ultrasound of the kidneys and urinary bladder. A small nonobstructing calculus in the mid left kidney, seen on CT, is not appreciated sonographically. Electronically Signed: Cade Sotomayor DO at 19:19 EDT , Chest X-Ray 02/12/22 12:22 IMPRESSION: No acute radiographic abnormalities. Electronically Signed: Herbie Gonzalez MD at 16:51 EDT , Physical Exam Narrative GENERAL: cooperative HEENT: Atraumatic; normocephalic EYES; Anicteric, Normal Conjunctiva NECK; supple, normal thyroid, RESPIRATORY: Diminished to auscultation CARDIOVASCULAR: Regular S1 S2, GI: soft, normoactive bowel sounds, : No Renal angle tenderness; EXTREMITIES: No edema, no clubbing, MUSCULOSKELETAL: no muscle wasting NEURO: Awake; no lateralizing signs. SKIN: No Rash PSYCH; Flat affect Assessment & Plan Assessment/Plan (1) Hemorrhagic cystitis: PLAN: Plan Patient is a 61-year-old gentleman currently diagnosed with acute cystitis was brought back to the hospital after cultures came back positive for Pseudomonas in the urine and blood 1. Acute cystitis with Pseudomonas ? Patient admitted for midline placement and initiation of antibiotics. Patient currently on Zosyn consult placed to infectious disease -02/13/2022 patient continues to improve clinically 2. Pseudomonas bacteremia ? Secondary to patient cystitis ? 02/13/2022 plan is for patient to be discharged home on oral antibiotics 3. Paroxysmal A. fib ? Patient rate controlled on flecainide not on systemic anticoagulation 4. BPH ? Patient is on Flomax discontinued 5. Dyslipidemia -Patient is on statin therapy, continued at home dose 6. Hypertension - Blood pressure controlled, home medications continued with dose adjustment as needed 7. DVT prophylaxis ? Low risk encourage early ambulation 8. Acute renal failure ? Secondary to dehydration from diarrhea patient started on IV fluid ordered renal ultrasound with consultation placed to nephrology ? 02/13/2022 kidney function did improve with rehydration 9. Acute diarrhea -requested for stool for C. difficile as well as stool studies COVID 19 patient treated with IV fluid pending results of stool studies ? 02/13/2022 stool studies unremarkable Charges/Coding Visit Charges Inpatient E&M: 41578 Subs Hosp L2
[2022-02-13 07:27] LABS: Absolute Lymphocyte Count 1.12 X10^3/uL (0.83-4.51); Basophil# 0.02 X10^3/uL; Basophil% 0.3 % (0-1); Eosinophil# 0.18 X10^3/uL; Hematocrit 38.2 % (40-54); Hemoglobin 12.7 g/dL (13.0-16.5); Lymphocyte # 1.12 X10^3/ul (0.83-4.51); Lymphocyte % 18.6 % (19-41); Mean Corp Hgb Conc 33.2 g/dL (32-36); Mean Corpuscular Hgb 31.4 pg (27.0-32.0); Mean Corpuscular Volume 94.3 fL (80-94); Mean Platelet Vol. 9.7 fl (6.2-12.0); Monocyte# 0.65 X10^3/uL; Monocyte% 10.8 % (0-10); NRBC Flagged by Analyzer 0 % (0-5); Neutrophil # 4.02 X10^3/uL (2.7-7.7); Neutrophil % 66.6 % (47-70); Platelet Count 111 K/mm3 (150-450); RBC Distribution Width CV 12.8 % (11.6-14.6); RBC Distribution Width SD 44.3 fl (35.1-43.9); Red Blood Count 4.05 M/mm3 (4.6-6.2)
[2022-02-13] MEDS: Menthol/Lanolin/Calamine/Znox 113 GM Tube 1 APPLIC TOPICAL (07:32)
[2022-02-13 07:50] LABS: Anion Gap 6 (5-15); BUN 13 mg/dL (7-18); Calcium,Total 8.4 mg/dL (8.5-10.1); Chloride 115 mmol/L (98-107); Creatinine, Serum 1.62 mg/dL (0.70-1.30); EST Glomerular Filtration Rate 46 mL/min (>60); Est Glom Filt Rate - Afr Amer 56 mL/min (>60); Estimated Creatinine Clearance 52.56 ml/min; Glucose 80 mg/dL (74-106); Potassium 3.4 mmol/L (3.5-5.1); Sodium Level 144 mmol/L (136-145)
--- NOTE | 2022-02-13 08:20 | PCM.DC.SUM ---
Providers Date of Admission: 02/11/22 Date of Discharge: 02/13/22 Primary Care Physician: Dr. Shan Desai MD Consultations 02/11/22 09:06 Consult: Infectious Disease Routine Consulting Provider: Jeremy Anguiano Reason for Consult: Pseudomonas UTI EMERGENT Consult: No Notified: Yes Date Notified: 02/11/22 Time Notified: 09:07 Method of Notification: Text 02/12/22 07:35 Consult: Nephrology Routine Consulting Provider: Ann Espino Reason for Consult: renal failure EMERGENT Consult: No Notified: Yes Date Notified: 02/12/22 Time Notified: 08:12 Method of Notification: Answering Service Reason For Visit: CYSTITIS Diagnosis Discharge Diagnosis (1) Hemorrhagic cystitis: Status: Acute Code(s): N30.91 - Cystitis, unspecified with hematuria Plan Patient is a 61-year-old gentleman currently diagnosed with acute cystitis was brought back to the hospital after cultures came back positive for Pseudomonas in the urine and blood 1. Acute cystitis with Pseudomonas ? Patient admitted for midline placement and initiation of antibiotics. Patient currently on Zosyn consult placed to infectious disease -02/13/2022 patient continues to improve clinically ? Patient was discharged on Levaquin for 7 days 2. Pseudomonas bacteremia ? Secondary to patient cystitis ? 02/13/2022 plan is for patient to be discharged home on oral antibiotics 3. Paroxysmal A. fib ? Patient rate controlled on flecainide not on systemic anticoagulation 4. BPH ? Patient is on Flomax discontinued 5. Dyslipidemia -Patient is on statin therapy, continued at home dose 6. Hypertension - Blood pressure controlled, home medications continued with dose adjustment as needed 7. DVT prophylaxis ? Low risk encourage early ambulation 8. Acute renal failure ? Secondary to dehydration from diarrhea patient started on IV fluid ordered renal ultrasound with consultation placed to nephrology ? 02/13/2022 kidney function did improve with rehydration 9. Acute diarrhea -requested for stool for C. difficile as well as stool studies COVID 19 patient treated with IV fluid pending results of stool studies ? 02/13/2022 stool studies unremarkable Medications at Discharge Home Medications diphenhydramine HCl 50 mg capsule 50 mg PO QHS 12/26/21 flecainide 100 mg tablet 100 mg PO BID #180 tabs 12/31/21 metoprolol tartrate 25 mg tablet 25 mg PO BID #180 tabs 12/31/21 pravastatin 10 mg tablet 10 mg PO QHS #90 tabs 12/31/21 tamsulosin 0.4 mg capsule 0.4 mg PO DAILY 02/09/22 levofloxacin 500 mg tablet 500 mg PO DAILY #7 tabs 02/13/22 potassium chloride 20 mEq tablet,extended release 20 meq PO DAILY #7 tabs 02/13/22 Hospital Course Summary of Care Provided Minutes Spent on Discharge: 35 Physical Exam Narrative GENERAL: cooperative HEENT: Atraumatic; normocephalic EYES; Anicteric, Normal Conjunctiva NECK; supple, normal thyroid, RESPIRATORY: Diminished to auscultation CARDIOVASCULAR: Regular S1 S2, GI: soft, normoactive bowel sounds, : No Renal angle tenderness; EXTREMITIES: No edema, no clubbing, MUSCULOSKELETAL: no muscle wasting NEURO: Awake; no lateralizing signs. SKIN: No Rash PSYCH; Flat affect Weight / BMI Weight Weight: 90 kg Body Mass Index (BMI) 26.9 ABG / Lab / Microbiology Data Result Diagrams: 02/13/22 06:10 02/13/22 06:10 Laboratory: Laboratory Results - last 24 hr 02/12/22 11:45: COVID-19 (JENNIFER) Not Detected 02/13/22 06:10: WBC 6.0, RBC 4.05 L, Hgb 12.7 L, Hct 38.2 L, MCV 94.3 H, MCH 31.4, MCHC 33.2, RDW Std Deviation 44.3 H, RDW Coeff of Lance 12.8, Plt Count 111 L, MPV 9.7, Immature Gran % (Auto) 0.700, Neut % (Auto) 66.6, Lymph % (Auto) 18.6 L, [place] % (Auto) 10.8 H, Eos % (Auto) 3.0, Baso % (Auto) 0.3, Absolute Neuts (auto) 4.0, Absolute Lymphs (auto) 1.12, Nucleated RBC % 0 02/13/22 06:10: Sodium 144, Potassium 3.4 L, Chloride 115 H, Carbon Dioxide 23.0, Anion Gap 6, BUN 13, Creatinine 1.62 H, Estim Creat Clear Calc 52.56, Est GFR (MDRD) Af Amer 56 L, Est GFR (MDRD) Non-Af 46 L, BUN/Creatinine Ratio 8.0 L, Glucose 80, Calcium 8.4 L Microbiology: Microbiology 02/12/22 12:35 Stool C. difficile DNA Amplification - Final 02/09/22 15:10 Urine, Clean Catch Urine Culture - Final Culture exhibits no growth. 02/10/22 20:45 Stool Enteric Bacteriology - Final 02/10/22 20:45 Stool C. difficile DNA Amplification - Final Radiography Diagnostic Testing: Radiology Impression Renal Ultrasound 02/12/22 07:35 IMPRESSION: 1. Normal ultrasound of the kidneys and urinary bladder. A small nonobstructing calculus in the mid left kidney, seen on CT, is not appreciated sonographically. Electronically Signed: Cade Sotomayor DO at 19:19 EDT , Chest X-Ray 02/12/22 12:22 IMPRESSION: No acute radiographic abnormalities. Electronically Signed: Herbie Gonzalez MD at 16:51 EDT , D/C Instructions Discharge Diet: No restrictions Discharge Activity: Return to Normal Activity Call your doctor if you observe: Fever of 101 or Higher, Shortness of breath, Fainting spells and Chest pain Meaningful Use Info Meaningful Use Diagnoses (Choose all that apply): None applicable Discharge Plan Admission Admit Date/Time: 02/11/22 13:44 Attending Provider: Esteban Taylor Primary Care Provider: Shan Desai Consulting Providers: Benjie Paulino ; Jeremy Anguiano ; Ann Espino Discharge Orders/Prescriptions Prescriptions: New levofloxacin 500 mg tablet 500 mg PO DAILY Qty: 7 0RF potassium chloride 20 mEq tablet extended release 20 meq PO DAILY Qty: 7 0RF Continued diphenhydramine HCl 50 mg capsule 50 mg PO QHS tamsulosin 0.4 mg capsule 0.4 mg PO DAILY Label Comments: TAKE 1 CAPSULE BY MOUTHAEVERY NIGHT AT BEDTIMETC flecainide 100 mg tablet 100 mg PO BID Qty: 180 3RF metoprolol tartrate 25 mg tablet 25 mg PO BID Qty: 180 3RF pravastatin 10 mg tablet 10 mg PO QHS Qty: 90 3RF Discontinued aspirin 81 MG tablet,chewable 81 mg PO DAILY@0800 Referrals / Follow Up: Mayuri Collins PA [Non-Staff] - None Shan Desai MD [Primary Care Provider] - In 1 Week Disposition Disposition (needs filled in before D/C Order can be placed): Home, Self Care Charges/Coding Visit Charges Inpatient E&M: 03253 Disch Hosp
[2022-02-13 08:30] VITALS: BP 112/77; PULSE 75; RESP 18; TEMP 36.7; O2SAT 96
--- NOTE | 2022-02-13 09:08 | PCM.PN.REN ---
Subjective Subjective Following for GO Patient is resting in bed. Reports feeling better overall. Denies any nausea, vomiting. Denies any dysuria or hematuria. Reports diarrhea is improved. No overnight events. Objective Data Objective Data Vital Signs: Vital Signs Temp Pulse Resp BP Pulse Ox O2 Del Method 98.1 F 79 14 128/87 H 95 Room Air 02/13/22 02:30 02/13/22 02:30 02/13/22 02:30 02/13/22 02:30 02/13/22 02:30 02/13/22 02:30 Oxygen Delivery Method Room Air Weight: 90 kg Body Mass Index (BMI) 26.9 Intake & Output: Intake and Output for Last 24 Hours 02/11/22 02/12/22 02/13/22 23:59 23:59 23:59 Intake Total 1989 1150 / 1150 2049 / 2049 Output Total 775 / 775 675 / 675 Balance 1989 375 / 375 1375 / 1375 Lab / Micro Data Result Diagrams: 02/13/22 06:10 02/13/22 06:10 Labs: Laboratory Results - last 24 hr 02/12/22 11:45: COVID-19 (JENNIFER) Not Detected 02/13/22 06:10: WBC 6.0, RBC 4.05 L, Hgb 12.7 L, Hct 38.2 L, MCV 94.3 H, MCH 31.4, MCHC 33.2, RDW Std Deviation 44.3 H, RDW Coeff of Lance 12.8, Plt Count 111 L, MPV 9.7, Immature Gran % (Auto) 0.700, Neut % (Auto) 66.6, Lymph % (Auto) 18.6 L, [place] % (Auto) 10.8 H, Eos % (Auto) 3.0, Baso % (Auto) 0.3, Absolute Neuts (auto) 4.0, Absolute Lymphs (auto) 1.12, Nucleated RBC % 0 02/13/22 06:10: Sodium 144, Potassium 3.4 L, Chloride 115 H, Carbon Dioxide 23.0, Anion Gap 6, BUN 13, Creatinine 1.62 H, Estim Creat Clear Calc 52.56, Est GFR (MDRD) Af Amer 56 L, Est GFR (MDRD) Non-Af 46 L, BUN/Creatinine Ratio 8.0 L, Glucose 80, Calcium 8.4 L Micro: Microbiology 02/12/22 12:35 Stool C. difficile DNA Amplification - Final 02/09/22 15:10 Urine, Clean Catch Urine Culture - Final Culture exhibits no growth. 02/10/22 20:45 Stool Enteric Bacteriology - Final 02/10/22 20:45 Stool C. difficile DNA Amplification - Final Radiography Diagnostic Testing: Radiology Impression Renal Ultrasound 02/12/22 07:35 IMPRESSION: 1. Normal ultrasound of the kidneys and urinary bladder. A small nonobstructing calculus in the mid left kidney, seen on CT, is not appreciated sonographically. Electronically Signed: Cade Sotomayor DO at 19:19 EDT , Chest X-Ray 02/12/22 12:22 IMPRESSION: No acute radiographic abnormalities. Electronically Signed: Herbie Gonzalez MD at 16:51 EDT , Physical Exam Narrative Const: Alert and oriented x3, no apparent distress Cardio: S1, S2, RRR Respiratory: Lung sounds clear anteriorly and posteriorly GI: Abdomen soft, nontender Extremities: No pitting edema noted bilateral lower legs or feet Assessment & Plan Assessment/Plan (1) GO (acute kidney injury): (2) Acute cystitis: (3) Bacteremia: (4) Diarrhea: PLAN: Plan - Nonoliguric, hypovolemic GO: this is likely multifactorial from significant volume depletion with poor oral intake and multiple episodes of diarrhea. Infection may also have contributed to GO. Patient's baseline creatinine is around 1.1 to 1.3 mg/dL dating back to 2012. On 02/08 creatinine 1.30 mg/dL, on 02/10/2022 creatinine 1.18 mg/dL, no creatinine drawn on 02/11. serum creatinine peaked 2.02 mg/dL on 02/12. Today creatinine improved to 1.62 mg/dL. Initial UA in ER +30 protein, occult blood 250, >100 RBC and leukocyte esterase (patient reports was having dysuria and noted some hematuria when in ER; patient reports no further hematuria or dysuria at this time), urine culture in the emergency room positive for Pseudomonas, repeat urine culture so far no growth. C. difficile negative. Patient was started on IV fluids 02/12. - Blood pressures acceptable currently on Lopressor. Chest x-ray clear -Potassium 3.4, being replaced today -Acute cystitis, Pseudomonas. Pseudomonas bacteremia. Antibiotics per ID. Currently on Zosyn. - Patient has a history of urinary retention and is on Flomax. Patient had noncontrast CT of abdomen and pelvis which did show nonobstructing calyceal stone in left kidney, normal renal size and position. Renal ultrasound showed normal ultrasound of kidneys and urinary bladder, no hydronephrosis. Small nonobstructing calculus mid left kidney as seen on CT not appreciated sonographically. -Discussed with Dr. Taylor. Possible discharge to home today. We will arrange for hospital follow-up. Advised patient to avoid NSAIDs and encouraged to maintain adequate hydration and solute intake.
[2022-02-13 09:21] VITALS: PULSE 70
[2022-02-13] MEDS: Flecainide 100 MG Tablet PO (09:21)
[2022-02-13] MEDS: Metoprolol Tartrate 25 MG Tablet PO (09:21)
[2022-02-13] MEDS: guaiFENesin 600 MG Tablet PO (09:21)
[2022-02-13] MEDS: Potassium Chloride 10mEq/100mL 10 MEQ/100 ML IV.SOLN. 100 MEQ IV BOLUS ×2 (10:08→11:08)
--- NOTE | 2022-02-13 10:23 | CASEMGMT ---
Pt to dc on po antibiotics today. Pt denies any homegoing needs.
[2022-02-13] MEDS: Potassium Chloride Oral Tablet 20 MEQ 40 MEQ PO (12:05)
--- NOTE | 2022-02-13 12:07 | CHAPLAIN ---
Type of Pastoral Visit _x__ Initial Visit ___ Follow-up Visit ___ On-call Visit ___ General Patient Visit ___ Spiritual Assessment ___ Family Conference ___ Bereavement ___ Rapid Response ___ Code Blue ___ Other (describe below) Pastoral Care Referral From ___ Patient _x__ Family ___ Nurse ___ Physician ___ Electric Shaver Mechanic ___ Business Law Instructor ___ Other (describe below) Sacrament/Intervention _x__ Active listening ___ Anointing ___ Hinduism ___ Bereavement ___ Communion ___ Ellen exploration ___ ___ Life review ___ Prayer ___ Reconciliation ___ Sacrament of Sick ___ Supportive presence ___ Wedding ___ Other (describe below) Pastoral Comments family member asked for visit; at visit discovered that pt is ready for discharge; pt states that he is happy about that and will agree to take it easy for a few days; 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
--- NOTE | 2022-02-13 13:51 | PHA.DC.MR ---
Pharmacy Service has performed discharge medication reconciliation for this patient. The patient's discharge medication list was reviewed for discrepancies and discrepancies were resolved. Medication education papers prepared, patient discharged before I was able to auto travel counselor. Home Medications diphenhydramine HCl 50 mg capsule 50 mg PO QHS 12/26/21 flecainide 100 mg tablet 100 mg PO BID #180 tabs 12/31/21 metoprolol tartrate 25 mg tablet 25 mg PO BID #180 tabs 12/31/21 pravastatin 10 mg tablet 10 mg PO QHS #90 tabs 12/31/21 tamsulosin 0.4 mg capsule 0.4 mg PO DAILY 02/09/22 levofloxacin 500 mg tablet 500 mg PO DAILY #7 tabs 02/13/22 potassium chloride 20 mEq tablet,extended release 20 meq PO DAILY #7 tabs 02/13/22
== END 2022-02-13 12:34 | disposition home or self-care (01) | DRG 690 ==
LOC: ED 13:58 → MS3 14:20
PROVIDERS: Admitting Provider Internal Medicine; Emergency Provider Student in an Organized Health Care Education/Training Program; PCP Family Medicine; Visit Provider Internal Medicine
DX: N30.00 Acute cystitis without hematuria (principal); R78.81 Bacteremia; N17.9 Acute kidney failure, unspecified; I48.0 Paroxysmal atrial fibrillation; E78.5 Hyperlipidemia, unspecified; I10 Essential (primary) hypertension; R19.7 Diarrhea, unspecified; I95.9 Hypotension, unspecified; Z79.82 Long term (current) use of aspirin; B96.5 Pseudomonas (aeruginosa) (mallei) (pseudomallei) as the cause of diseases classified elsewhere; Z17.0 Estrogen receptor positive status [ER+]; B95.2 Enterococcus as the cause of diseases classified elsewhere; N40.0 Benign prostatic hyperplasia without lower urinary tract symptoms
CPT/HCPCS: 36415; 71045; 74176; 76770; 80048; 80053; 81001; 83605; 83735; 84100; 85025; 85610; 85730; 87040; 87077; 87086; 87088; 87149; 87184; 87186; 87493; 87506; 87635; 93005; 96361; 96365; 96375; 99285; J7030; J7040; J7050; A4216; J2405; U0003; U0005

== ENCOUNTER 2022-05-12 23:01 | Inpatient (IN) | payer MEDICARE, SELFPAY ==
--- NOTE | 2022-05-12 00:50 | RAD_ITS ---
INDICATION: cough fever EXAMINATION/TECHNIQUE: X-RAY - XR Chest 1 View AP portable. 12:49 AM COMPARISON: 02/12/2022 FINDINGS: LINES/DEVICES: None. LUNGS: No consolidation. No pneumothorax. MEDIASTINUM: Unremarkable. CARDIAC SILHOUETTE: Not enlarged. BONES AND SOFT TISSUES: Degenerative changes in the dorsal spine. RAD/Chest 1 View (Portable) IMPRESSION: No acute findings. Electronically Signed: Yaneth Gamez MD at 1:13 EST ,
[2022-05-12 23:02] VITALS: BP 127/78; PULSE 113; RESP 16; TEMP 37.7; O2SAT 100; BMI 25.4
[2022-05-12 23:54] VITALS: BP 137/82; PULSE 111; RESP 16; TEMP 38.8; O2SAT 95
--- NOTE | 2022-05-12 23:58 | EKG12_ITS ---
Test Reason : DYSRYTHMIA Blood Pressure : / mmHG Vent. Rate : 109 BPM Atrial Rate : 109 BPM P-R Int : 164 ms QRS Dur : 080 ms QT Int : 286 ms P-R-T Axes : 052 073 051 degrees QTc Int : 385 ms Sinus tachycardia Nonspecific T wave abnormality Abnormal ECG Confirmed by NANCY KESSLER, MARK ([id number]), writer editor MELECIO ORTEGA ([id number]) on 05/14/2022 1:26:09 PM Referred By: JAMES Confirmed By:MARK CRUZ MD
[2022-05-13] VITALS (18 sets, daily range): BP systolic 89–131; BP diastolic 56–73; PULSE 93–120; RESP 16–24; TEMP 36.7–39; O2SAT 93–97; BMI 26.5
--- NOTE | 2022-05-13 00:02 | EX.ED.GUMALE ---
HPI History of Present Illness Chief Complaint: Complaint Informant: patient Pain Onset: Days (3) Context: Gradual Onset Timing: Intermittent (When urinating) Current Severity: Gone Maximum Severity: Moderate Worsened by: Urinating Relieved by: Nothing Penile Discharge Genital Discharge Amount: None Narrative Narrative: Patient has history of prostate enlargement and has a TURP planned later at the end of this month. He is on finasteride. He started having dysuria 3 days or so ago, and today had some chills/rigors, although the dysuria is gone. This is urethral/penile dysuria. He denies any abdominal pain, he has had a few twinges of pains in both of my kidneys but no other pains in his back and it is not bothering him right now. He has had a minor cough today but it has been nonproductive and denies any dyspnea or chest discomfort. No hematuria. No pain in his perineum and no pain when he has bowel movements. [facility] Medical History Acute embolism and thrombosis of deep vein of distal lower extremity Cardiomyopathy in other diseases classified elsewhere Encounter for screening for COVID-19 Family history of hypertension Hyperlipidemia Palpitations Paroxysmal atrial fibrillation Pure hypercholesterolemia URI (upper respiratory infection) Home Medications diphenhydramine HCl 50 mg capsule 50 mg PO QHS 12/26/21 [History Last Taken Unknown] flecainide 100 mg tablet 100 mg PO BID #180 tabs 12/31/21 [Rx Last Taken Unknown] metoprolol tartrate 25 mg tablet 25 mg PO BID #180 tabs 12/31/21 [Rx Last Taken Unknown] pravastatin 10 mg tablet 10 mg PO QHS #90 tabs 12/31/21 [Rx Last Taken Unknown] tamsulosin 0.4 mg capsule 0.4 mg PO DAILY 02/09/22 [History Last Taken Unknown] finasteride 5 mg tablet 5 mg PO DAILY 05/12/22 [History Last Taken Unknown] ciprofloxacin HCl 500 mg tablet 500 mg PO BID #14 TABLETS 05/13/22 [Rx Last Taken Unknown] Allergy/AdvReac Type Severity Reaction Status Date / Time No Known Allergies Allergy Verified 05/12/22 23:08 Family History Father Martha Gehrig disease Mother Myocardial infarction CAD (coronary artery disease) Brother Myocardial infarction, Onset Age: 60 Hypertension Multiple sclerosis Other Family history of hypertension Surgical History History of appendectomy History of left heart catheterization (LHC) Presence of IVC filter Social History Smoking Status: Never smoker alcohol intake: current alcohol intake frequency: a few times a week Alcohol type: beer substance use type: does not use caffeine: Yes Type: coffee Number of servings: 2 what type of physical activity do you participate in: none seatbelt use: always do you feel safe at home: Yes ROS ROS ED Constitutional Constitutional ED: Reports chills and fever(s) Eyes Eyes: Denies change in vision or diplopia ENT ENT ED: Denies rhinorrhea or sore throat Cardiovascular Cardiovascular: Denies chest pain or palpitations Respiratory/Chest Respiratory/Chest: Reports cough; Denies dyspnea or sputum Gastrointestinal Gastrointestinal: Denies abdominal pain, diarrhea, nausea or vomiting Genitourinary Genitourinary ED: Reports as per HPI, dysuria and urinary frequency; Denies hematuria Musculoskeletal Musculoskeletal: Denies back pain or neck pain Integumentary Denies abscess or rash Neurologic Neurologic: Denies headache(s), paresthesias or weakness Psychiatric Psychiatric: Denies anxiety or suicidal thoughts EXAM Physical Exam Const Vital Signs: 05/12/22 23:02 05/12/22 23:54 05/13/22 00:31 Temperature 99.9 F H 101.9 F H Temperature Source Oral Oral Pulse Rate 113 H 111 H Respiratory Rate 16 16 Blood Pressure 127/78 H 137/82 H Blood Pressure Mean 94 100 Pulse Ox 100 95 95 Oxygen Delivery Method Room Air Room Air Room Air 05/13/22 00:33 05/13/22 01:24 Temperature 102.2 F H 101.2 F H Temperature Source Oral Oral Pulse Rate 120 H 113 H Respiratory Rate 22 H 24 H Blood Pressure 124/73 H 114/64 Blood Pressure Mean 90 80 Pulse Ox 93 93 Oxygen Delivery Method Room Air Room Air Positive well nourished and well developed General Appearance ED: well developed and NAD HEENT Reports moist mucous membranes normocephalic and atraumatic Eyes PERRL and EOMs intact bilaterally Neck full ROM and supple Resp normal respiratory effort and clear to auscultation bilaterally Cardio regular rate, regular rhythm and no murmurs Rate: tachycardic GI non-tender and non-distended Auscultation: normoactive bowel sounds Palpation: soft Back/Spine no CVA tenderness General Back: other FROM Extremity normal to inspection General Extremety ED: Negative for edema, pulses abnormal or tenderness General Extremity: Negative for edema or pulses abnormal Neuro oriented x3, CN's II-XII intact bilaterally and no sensory deficits noted Sensorium / Orientation: awake and alert Motor Exam: strength 5/5 throughout Psych mental status grossly normal Skin no rashes or lesions noted and no wounds MDM MDM MDM Narrative Medical decision making narrative: Patient was given Tylenol for his fever, given his cough, I also obtained COVID and influenza swabs which were negative, in addition to blood work and a urinalysis. His white blood count is in the normal range, there is a trend toward leftward shift but no bandemia, his lactate is within normal limits and his renal function is unremarkable/normal. He feels better after we treated his fever. I did a 1 view chest x-ray, also considering sepsis from pneumonia, on my interpretation it is normal and radiology is in agreement. His urine does appear to be infected. Since he does not appear to meet any criteria for sepsis, and he feels better after the Tylenol and looks well clinically, I think treating him as an outpatient and it would be reasonable. Taking into consideration current recommendations for empiric treatment prior to cultures returning, in addition to the fact that he had a Pseudomonas infection before along with bacteremia/sepsis, I think giving him IV Rocephin here in addition to a prescription for Cipro which we also started him on tonight, would be most reasonable since the latter would recover Pseudomonas. I discussed this with him and his they are comfortable with that overall plan we discussed reasons to return, blood cultures and urine culture are sent and pending. Lab Data Attestation: I reviewed the patient's lab results. Labs: Laboratory Results - last 24 hr 05/12/22 05/12/22 05/12/22 23:45 23:45 23:45 WBC 8.4 RBC 4.55 L Hgb 14.2 Hct 41.2 MCV 90.5 MCH 31.2 MCHC 34.5 RDW Std Deviation 40.8 RDW Coeff of Lance 12.3 Plt Count 138 L MPV 9.5 Immature Gran % (Auto) 0.500 Neut % (Auto) 89.9 H Lymph % (Auto) 6.3 L [place] % (Auto) 1.3 Eos % (Auto) 1.9 Baso % (Auto) 0.1 Absolute Neuts (auto) 7.6 Absolute Lymphs (auto) 0.53 L Nucleated RBC % 0 Differential Comment SCANNED PT INR APTT Sodium 140 Potassium 3.6 Chloride 110 H Carbon Dioxide 24.0 Anion Gap 6 BUN 16 Creatinine 1.29 Estim Creat Clear Calc 66.00 Est GFR (MDRD) Af Amer 73 Est GFR (MDRD) Non-Af 60 BUN/Creatinine Ratio 12.4 Glucose 117 H Lactic Acid 1.3 Calcium 8.8 Total Bilirubin 0.50 AST 60 H ALT 81 H Alkaline Phosphatase 107 Total Protein 6.9 Albumin 3.4 Globulin 3.5 Albumin/Globulin Ratio 1.0 Urine Color Urine Clarity Urine pH Ur Specific [place] Urine Protein Urine Glucose (UA) Urine Ketones Urine Occult Blood Urine Nitrite Urine Bilirubin Urine Urobilinogen Ur Leukocyte Esterase Urine RBC Urine WBC Ur Squamous Epith Cells Urine Bacteria Urine Mucus 05/13/22 05/13/22 00:20 00:30 WBC RBC Hgb Hct MCV MCH MCHC RDW Std Deviation RDW Coeff of Lance Plt Count MPV Immature Gran % (Auto) Neut % (Auto) Lymph % (Auto) [place] % (Auto) Eos % (Auto) Baso % (Auto) Absolute Neuts (auto) Absolute Lymphs (auto) Nucleated RBC % Differential Comment PT 13.4 INR 1.1 APTT 25.7 Sodium Potassium Chloride Carbon Dioxide Anion Gap BUN Creatinine Estim Creat Clear Calc Est GFR (MDRD) Af Amer Est GFR (MDRD) Non-Af BUN/Creatinine Ratio Glucose Lactic Acid Calcium Total Bilirubin AST ALT Alkaline Phosphatase Total Protein Albumin Globulin Albumin/Globulin Ratio Urine Color Yellow Urine Clarity Sl. Cloudy Urine pH 7.0 Ur Specific [place] 1.010 Urine Protein 30 H Urine Glucose (UA) Normal Urine Ketones Negative Urine Occult Blood 25 H Urine Nitrite Negative Urine Bilirubin Negative Urine Urobilinogen Normal Ur Leukocyte Esterase 500 H Urine RBC 0 SEEN Urine WBC >100 SEEN Ur Squamous Epith Cells 0 SEEN Urine Bacteria 1+ Urine Mucus 0 SEEN Radiography Diagnostic Testing: Clinical Impression(s) from Imaging Studies Chest X-Ray 05/12/22 00:50 IMPRESSION: No acute findings. Electronically Signed: Yaneth Gamez MD at 1:13 EST , Rhythm Strip Rhythm Strip: Sinus Tach Rate: 110 Ectopy: None EKG Initial EKG: Attestation: I personally reviewed and interpreted this EKG as follows: Interpretation: No Acute Injury Pattern, Sinus Tachycardia and Non-Specific ST Changes (inf; Otherwise normal EKG) Prior EKG tracings: available for review Prior: Unchanged Discharge Plan Triage Chief Complaint: Complaint ED Provider: Keagan Cheney Dx/Rx/DC Orders Clinical Impression: Acute cystitis without hematuria, Fever Instructions: ED Bladder Infection, Male (Adult) Prescriptions: New ciprofloxacin HCl [ciprofloxacin HCl] 500 MG tablet 500 mg PO BID Qty: 14 0RF No Action diphenhydramine HCl 50 mg capsule 50 mg PO QHS tamsulosin 0.4 mg capsule 0.4 mg PO DAILY Label Comments: TAKE 1 CAPSULE BY MOUTHAEVERY NIGHT AT BEDTIMETC finasteride 5 mg tablet 5 mg PO DAILY flecainide 100 mg tablet 100 mg PO BID Qty: 180 3RF metoprolol tartrate 25 mg tablet 25 mg PO BID Qty: 180 3RF pravastatin 10 mg tablet 10 mg PO QHS Qty: 90 3RF Primary Care Provider: Shan Desai Referrals: Shan Desai MD [Primary Care Provider] - 2 Days Disposition Disposition: Home, Self Care
[2022-05-13] MEDS: Acetaminophen 500 MG Tablet 1000 MG PO (00:08)
[2022-05-13 00:30] LABS: Mucous, Urine 0 SEEN /hpf (<or=2+); Red Blood Cells-Urine 0 SEEN /hpf (0-5); Squamous Epithelial Cells - UA 0 SEEN /hpf (0-5)
[2022-05-13 00:34] LABS: Absolute Lymphocyte Count 0.53 X10^3/uL (0.83-4.51); Absolute Neutrophil Count 7.6 X10^3/uL (2.0-7.7); Basophil# 0.01 X10^3/uL; Basophil% 0.1 % (0-1); Eosinophil# 0.16 X10^3/uL; Eosinophils% 1.9 % (0-5); Hematocrit 41.2 % (40-54); Hemoglobin 14.2 g/dL (13.0-16.5); Lymphocyte # 0.53 X10^3/ul (0.83-4.51); Lymphocyte % 6.3 % (19-41); Mean Corp Hgb Conc 34.5 g/dL (32-36); Mean Corpuscular Hgb 31.2 pg (27.0-32.0); Mean Corpuscular Volume 90.5 fL (80-94); Mean Platelet Vol. 9.5 fl (6.2-12.0); Monocyte# 0.11 X10^3/uL; Monocyte% 1.3 % (0-10); NRBC Flagged by Analyzer 0 % (0-5); Neutrophil # 7.59 X10^3/uL (2.7-7.7); Neutrophil % 89.9 % (47-70); POSITIVE DIFFERENTIAL YES; Platelet Count 138 K/mm3 (150-450); RBC Distribution Width CV 12.3 % (11.6-14.6); RBC Distribution Width SD 40.8 fl (35.1-43.9); Red Blood Count 4.55 M/mm3 (4.6-6.2); White Blood Count 8.4 K/mm3 (4.4-11.0)
[2022-05-13 00:42] LABS: Differential Indicated SCAN CRITERIA MET
[2022-05-13 00:50] LABS: International Normalized Ratio 1.1; Prothrombin Time (Protime)PT. 13.4 SECONDS (11.7-14.9)
[2022-05-13 00:51] LABS: Partial Thromboplast Time 25.7 Seconds (24.1-36.2)
[2022-05-13 01:05] LABS: AST(SGOT) 60 U/L (15-37); Alanine Aminotransfer ALT/SGPT 81 U/L (16-61); Albumin, Serum 3.4 g/dL (3.2-5.0); Alkaline Phosphatase 107 U/L (45-117); Anion Gap 6 (5-15); BUN 16 mg/dL (7-18); BUN/Creat Ratio 12.4 RATIO (10-20); Calcium,Total 8.8 mg/dL (8.5-10.1); Chloride 110 mmol/L (98-107); Creatinine, Serum 1.29 mg/dL (0.70-1.30); EST Glomerular Filtration Rate 60 mL/min (>60); Est Glom Filt Rate - Afr Amer 73 mL/min (>60); Globulin 3.5 g/dL (2.2-4.2); Glucose 117 mg/dL (74-106); Potassium 3.6 mmol/L (3.5-5.1); Protein, Total 6.9 g/dL (6.4-8.2); Sodium Level 140 mmol/L (136-145)
[2022-05-13 01:16] LABS: Color, Urine Yellow (Yellow); Glucose, Dipstick Normal (Normal); Ketone-Dipstick Negative (Negative); Leukocyte Esterase-Dipstick 500 /ul (Negative); Nitrite-Dipstick Negative (Negative); Occult Blood-Urine 25 /ul (Negative); Protein-Dipstick 30 mg/dl (Negative); Urine Bilirubin Dipstick Negative (Negative); Urine Clarity Sl. Cloudy (Clear); Urine Urobilinogen Normal (Normal)
[2022-05-13 01:19] LABS: Bacteria 1+ /hpf (None Seen); White Blood Cells >100 SEEN /hpf (0-5)
[2022-05-13 01:24] LABS: Lactic Acid 1.3 mmol/L (0.4-1.9)
[2022-05-13] MEDS: Ciprofloxacin 500 MG Tablet PO (02:00)
[2022-05-13] MEDS: Ceftriaxone 1 GM/50 ML BAG IV (02:01)
[2022-05-13 02:04] LABS: Differential Comment SCANNED
[2022-05-13] MEDS: 0.9% Normal Saline 1,000 ML 999 ML IV ×2 (03:02→04:34)
--- NOTE | 2022-05-13 04:49 | HP.PCM.HOS_ITS ---
HPI - General General Date of Admission: 05/13/22 Date of Service: 05/13/22 Chief Complaint: Dysuria HPI Narrative JERAMY WOOD, is a 61 M with a significant history of paroxysmal A. fib; and BPH who presents with a 3-day history of dysuria. On the night of presentation the patient had chills and rigors. He describes some pain at his perineum. He has decrease in urinary volume and difficulty to completely empty his bladder. Of note patient was scheduled to have a TURP with his urology but cancelled it but now he is thinking about going back for the procedure. Of note in February 2022 when patient had such symptoms he ended up having UTI and bacteremia also patient really wanted him to get admitted. Initially the plan was not to admit patient but patient got hypotensive so he was bolused with IV fluids and decision was made to admit patient. [facility], [facility] Medical History Acute embolism and thrombosis of deep vein of distal lower extremity Cardiomyopathy in other diseases classified elsewhere Encounter for screening for COVID-19 Family history of hypertension Hyperlipidemia Palpitations Paroxysmal atrial fibrillation Pure hypercholesterolemia URI (upper respiratory infection) Home Medications diphenhydramine HCl 50 mg capsule 50 mg PO QHS 12/26/21 [History Last Taken Unknown] flecainide 100 mg tablet 100 mg PO BID #180 tabs 12/31/21 [Rx Last Taken Unknown] metoprolol tartrate 25 mg tablet 25 mg PO BID #180 tabs 12/31/21 [Rx Last Taken Unknown] pravastatin 10 mg tablet 10 mg PO QHS #90 tabs 12/31/21 [Rx Last Taken Unknown] tamsulosin 0.4 mg capsule 0.4 mg PO DAILY 02/09/22 [History Last Taken Unknown] finasteride 5 mg tablet 5 mg PO DAILY 05/12/22 [History Last Taken Unknown] ciprofloxacin HCl 500 mg tablet 500 mg PO BID #14 TABLETS 05/13/22 [Rx Last Ta jessica Unknown] Allergy/AdvReac Type Severity Reaction Status Date / Time No Known Allergies Allergy Verified 05/12/22 23:08 Family History Father Martha Gehrig disease Mother Myocardial infarction CAD (coronary artery disease) Brother Myocardial infarction, Onset Age: 60 Hypertension Multiple sclerosis Other Family history of hypertension Surgical History History of appendectomy History of left heart catheterization (LHC) Presence of IVC filter Social History Smoking Status: Never smoker alcohol intake: current alcohol intake frequency: a few times a week Alcohol type: beer substance use type: does not use caffeine: Yes Type: coffee Number of servings: 2 what type of physical activity do you participate in: none seatbelt use: always do you feel safe at home: Yes ROS ROS Narrative Pertinent positives and pertinent negatives as noted in HPI. All other systems were reviewed and are negative Vital Signs Vital Signs Vital Signs: 05/12/22 23:02 05/12/22 23:54 05/13/22 00:31 Temperature 99.9 F H 101.9 F H Temperature Source Oral Oral Pulse Rate 113 H 111 H Respiratory Rate 16 16 Blood Pressure 127/78 H 137/82 H Blood Pressure Mean 94 100 Pulse Ox 100 95 95 Oxygen Delivery Method Room Air Room Air Room Air 05/13/22 00:33 05/13/22 01:24 05/13/22 02:00 Temperature 102.2 F H 101.2 F H 98.8 F Temperature Source Oral Oral Oral Pulse Rate 120 H 113 H 99 Respiratory Rate 22 H 24 H 24 H Blood Pressure 124/73 H 114/64 89/63 L Blood Pressure Mean 90 80 71 Pulse Ox 93 93 95 Oxygen Delivery Method Room Air Room Air Room Air 05/13/22 02:00 05/13/22 04:26 Temperature 99.8 F H 98.5 F Temperature Source Oral Oral Pulse Rate 105 H 93 Respiratory Rate 20 H 20 H Blood Pressure 102/65 91/63 Blood Pressure Mean 77 72 Pulse Ox 95 93 Oxygen Delivery Method Room Air Room Air Weight Weight: 85.275 kg Body Mass Index (BMI) 25.4 Physical Exam Narrative Physical exam: General: Patient in ED bed with rigors. Head: Normocephalic, atraumatic, no tenderness Eyes: Vision is grossly intact. EOMI ENT, no trauma, moist mucous membranes, no rhinorrhea Neck: Nontender, No thyromegaly. CVS: Regular rate and rhythm. S1-S2 present. No murmur, gallop or rub. Respiratory : clear to auscultation bilaterally, chest wall nontender, no wheezing Abdomen: Soft, nontender, nondistended, normal bowel sounds, no masses : Deferred Back: Nontender, no midline spinal tenderness, deformities, step-offs Extremities: Nontender full range of motion, no trauma Skin: Normal color, no trauma, abrasions Neuro: Alert, oriented, cranial nerves II through XII grossly intact. Psychiatry: Normal mood. Normal affect. Not depressed. Not anxious. Results Lab / Micro Data Result Diagrams: 05/12/22 23:45 05/12/22 23:45 Labs: Laboratory Results - last 24 hr 05/12/22 23:45: WBC 8.4, RBC 4.55 L, Hgb 14.2, Hct 41.2, MCV 90.5, MCH 31.2, MCHC 34.5, RDW Std Deviation 40.8, RDW Coeff of Lance 12.3, Plt Count 138 L, MPV 9.5, Immature Gran % (Auto) 0.500, Neut % (Auto) 89.9 H, Lymph % (Auto) 6.3 L, [place] % (Auto) 1.3, Eos % (Auto) 1.9, Baso % (Auto) 0.1, Absolute Neuts (auto) 7.6, Absolute Lymphs (auto) 0.53 L, Nucleated RBC % 0, Differential Comment SCANNED 05/12/22 23:45: Sodium 140, Potassium 3.6, Chloride 110 H, Carbon Dioxide 24.0, Anion Gap 6, BUN 16, Creatinine 1.29, Estim Creat Clear Calc 66.00, Est GFR (MDRD) Af Amer 73, Est GFR (MDRD) Non-Af 60, BUN/Creatinine Ratio 12.4, Glucose 117 H, Calcium 8.8, Total Bilirubin 0.50, AST 60 H, ALT 81 H, Alkaline Phospha tase 107, Total Protein 6.9, Albumin 3.4, Globulin 3.5, Albumin/Globulin Ratio 1.0 05/12/22 23:45: Lactic Acid 1.3 05/13/22 00:20: Urine Color Yellow, Urine Clarity Sl. Cloudy, Urine pH 7.0, Ur Specific [place] 1.010, Urine Protein 30 H, Urine Glucose (UA) Normal, Urine Ketones Negative, Urine Occult Blood 25 H, Urine Nitrite Negative, Urine Bilirubin Negative, Urine Urobilinogen Normal, Ur Leukocyte Esterase 500 H, Urine RBC 0 SEEN, Urine WBC >100 SEEN, Ur Squamous Epith Cells 0 SEEN, Urine Bacteria 1+, Urine Mucus 0 SEEN 05/13/22 00:30: PT 13.4, INR 1.1, APTT 25.7 Micro: Microbiology 05/13/22 00:15 Nasal Secretion SARS-CoV-2 & FLU Antigen (Rapid) - Final Rhythm Strip Rhythm Strip: Sinus Tach Rate: 110 Ectopy: None Radiology Impression Chest X-Ray 05/12/22 00:50 IMPRESSION: No acute findings. Electronically Signed: Yaneth Gamez MD at 1:13 EST , Assessment & Plan Assessment/Plan (1) Acute cystitis without hematuria: (2) Prostatitis, acute: (3) SIRS (systemic inflammatory response syndrome): PLAN: Plan Acute cystitis without hematuria/Acute Prostatitis Urinalysis showed urinary protein of 38; urine occult blood 25; urine leukocyte esterase of 500; urine nitrite was negative; urine WBC more than 100; urine bacteria 1+. Chest x-ray image was visualized and independent interpreted. I agree with radiology interpretation of no acute cardiopulmonary process. Patient meets SIRS criteria: T-max on presentation 102.2 Fahrenheit. Tachycardia on presentation. Tachypnea with highest respiratory 24. Patient with no endorgan damage. Sepsis ruled out. White count on presentation was 8,400. Patient with neutrophilia of 89.9% and lymphopenia of 6.3%. No bandemia. Review of record shows that on 02/08/2022 urine culture was positive for Pseudomonas aeruginosa; and blood culture was positive for Pseudomonas diagnosis and Enterococcus faecalis. Pseudomonas and Enterococcus was both sensitive to Levaquin. Levaquin ordered. Trend CBC. Hypotension Improved with normal saline bolus given the emergency department. Gentle IV fluids ordered. Elevated liver enzymes AST on presentation was 60. ALT on presentation was 81. Patient has had elevated liver enzymes since January 2022. Trend CMP. History of paroxysmal A. fib In sinus rhythm on presentation. Hold metoprolol for hypotension on presentation. Flecainide continued. Of note patient follows up with cardiology and is not on anticoagulation. Home aspirin continued. BPH Not improving Of finasteride and tamsulosin continued. Patient to follow-up with urology after discharge. DVT prophylaxis Subcutaneous Lovenox ordered. Charges/Coding Visit Charges Inpatient E&M: 70499 Init Hosp L3
[2022-05-13] MEDS: 0.9% Normal Saline 1,000 ML 100 ML IV (06:16)
[2022-05-13] MEDS: Acetaminophen 325 MG Tablet 650 MG PO ×3 (08:20→20:24)
[2022-05-13] MEDS: Tamsulosin HCl 0.4 MG Capsule PO ×2 (08:20→20:24)
[2022-05-13] MEDS: Flecainide 100 MG Tablet PO ×2 (08:20→20:24)
[2022-05-13] MEDS: Aspirin 81 MG TAB.CHEW PO (08:20)
[2022-05-13] MEDS: Enoxaparin 40 MG/0.4 ML Syringe SC (08:21)
[2022-05-13] MEDS: Ondansetron 4 MG/2 ML Vial IV (08:27)
[2022-05-13 10:04] LABS: Absolute Lymphocyte Count 0.34 X10^3/uL (0.83-4.51); Absolute Neutrophil Count 12.7 X10^3/uL (2.0-7.7); Basophil# 0.04 X10^3/uL; Basophil% 0.3 % (0-1); Eosinophil# 0.02 X10^3/uL; Eosinophils% 0.1 % (0-5); Hematocrit 37.9 % (40-54); Hemoglobin 13.2 g/dL (13.0-16.5); Lymphocyte # 0.34 X10^3/ul (0.83-4.51); Lymphocyte % 2.5 % (19-41); Mean Corp Hgb Conc 34.8 g/dL (32-36); Mean Corpuscular Hgb 31.8 pg (27.0-32.0); Mean Corpuscular Volume 91.3 fL (80-94); Mean Platelet Vol. 8.9 fl (6.2-12.0); Monocyte% 2.9 % (0-10); NRBC Flagged by Analyzer 0 % (0-5); Neutrophil # 12.73 X10^3/uL (2.7-7.7); Neutrophil % 93.9 % (47-70); POSITIVE DIFFERENTIAL YES; Platelet Count 117 K/mm3 (150-450); RBC Distribution Width CV 12.8 % (11.6-14.6); RBC Distribution Width SD 42.5 fl (35.1-43.9); Red Blood Count 4.15 M/mm3 (4.6-6.2); White Blood Count 13.6 K/mm3 (4.4-11.0)
[2022-05-13] MEDS: Finasteride 5 MG Tablet PO (10:27)
[2022-05-13 10:30] LABS: ALB/GLOB Ratio 0.9 RATIO (0.9-2.4); AST(SGOT) 41 U/L (15-37); Alanine Aminotransfer ALT/SGPT 68 U/L (16-61); Albumin, Serum 2.9 g/dL (3.2-5.0); Alkaline Phosphatase 95 U/L (45-117); Anion Gap 5 (5-15); BUN 17 mg/dL (7-18); Calcium,Total 8.1 mg/dL (8.5-10.1); Chloride 112 mmol/L (98-107); Creatinine, Serum 1.31 mg/dL (0.70-1.30); EST Glomerular Filtration Rate 59 mL/min (>60); Est Glom Filt Rate - Afr Amer 71 mL/min (>60); Globulin 3.2 g/dL (2.2-4.2); Glucose 113 mg/dL (74-106); Potassium 4.2 mmol/L (3.5-5.1); Protein, Total 6.1 g/dL (6.4-8.2); Sodium Level 140 mmol/L (136-145)
[2022-05-13 10:31] LABS: Differential Indicated SCAN CRITERIA MET
[2022-05-13 12:13] LABS: Differential Comment SCANNED
[2022-05-13] MEDS: proCHLORPERazine 10 MG/2 ML Vial IV (13:59)
[2022-05-13] MEDS: 0.9% Normal Saline 1,000 ML 125 ML IV (15:29)
[2022-05-13] MEDS: Pravastatin 20 MG Tablet 10 MG PO (20:24)
[2022-05-13] MEDS: DiphenhydrAMINE 25 MG Capsule 50 MG PO (20:26)
[2022-05-13] MEDS: levoFLOXacin IV 750 MG/150 ML BAG 100 MG IV (22:56)
[2022-05-14] VITALS (8 sets, daily range): BP systolic 115–137; BP diastolic 73–93; PULSE 87–103; RESP 16–18; TEMP 37–37.7; O2SAT 95–99
[2022-05-14] MEDS: Acetaminophen 325 MG Tablet 650 MG PO ×2 (02:29→22:18)
[2022-05-14 06:07] LABS: Absolute Lymphocyte Count 0.69 X10^3/uL (0.83-4.51); Basophil# 0.02 X10^3/uL; Basophil% 0.2 % (0-1); Eosinophil# 0.02 X10^3/uL; Eosinophils% 0.2 % (0-5); Hematocrit 37.2 % (40-54); Hemoglobin 12.7 g/dL (13.0-16.5); Lymphocyte # 0.69 X10^3/ul (0.83-4.51); Lymphocyte % 6.6 % (19-41); Mean Corp Hgb Conc 34.1 g/dL (32-36); Mean Corpuscular Hgb 31.8 pg (27.0-32.0); Mean Platelet Vol. 9.7 fl (6.2-12.0); Monocyte# 0.64 X10^3/uL; Monocyte% 6.1 % (0-10); NRBC Flagged by Analyzer 0 % (0-5); Neutrophil # 9.02 X10^3/uL (2.7-7.7); Platelet Count 107 K/mm3 (150-450); RBC Distribution Width CV 12.9 % (11.6-14.6); RBC Distribution Width SD 43.9 fl (35.1-43.9); White Blood Count 10.5 K/mm3 (4.4-11.0)
[2022-05-14 06:38] LABS: ALB/GLOB Ratio 0.7 RATIO (0.9-2.4); AST(SGOT) 32 U/L (15-37); Alanine Aminotransfer ALT/SGPT 61 U/L (16-61); Albumin, Serum 2.4 g/dL (3.2-5.0); Alkaline Phosphatase 86 U/L (45-117); Anion Gap 8 (5-15); BUN 13 mg/dL (7-18); Chloride 109 mmol/L (98-107); Creatinine, Serum 0.93 mg/dL (0.70-1.30); EST Glomerular Filtration Rate 88 mL/min (>60); Est Glom Filt Rate - Afr Amer 106 mL/min (>60); Estimated Creatinine Clearance 91.55 ml/min; Globulin 3.3 g/dL (2.2-4.2); Glucose 93 mg/dL (74-106); Potassium 3.5 mmol/L (3.5-5.1); Protein, Total 5.7 g/dL (6.4-8.2); Sodium Level 140 mmol/L (136-145)
[2022-05-14] MEDS: Aspirin 81 MG TAB.CHEW PO (08:10)
[2022-05-14] MEDS: Tamsulosin HCl 0.4 MG Capsule PO ×2 (10:28→22:19)
[2022-05-14] MEDS: Enoxaparin 40 MG/0.4 ML Syringe SC (10:28)
[2022-05-14] MEDS: Finasteride 5 MG Tablet PO (10:28)
[2022-05-14] MEDS: Flecainide 100 MG Tablet PO ×2 (10:28→22:18)
--- NOTE | 2022-05-14 11:40 | CASEMGMT ---
ASCHIN BRIZUELA Assessment: SACHIN BRIZUELA to room to meet with patient for initial transition planning/care coordination assessment. SACHIN BRIZUELA introduced self and role at [facility].? Pt voices understanding and consents to assessment at this time.? Pt resting in bed in no distress at this time.? Pt is A/O at this time and answers all questions appropriately.?? Care providers, pharmacy, and demographics verified/updated at this time. PCP:Lloyd Specialists:Evita, uro; Betsy, cardio Preferred Pharmacy: [facility] Retail Insurance: [employer] Prescription Benefit: yes LW/HPOA: Pt denies having a LW/DPOA LNOK: Glenys Garcia, . 2 dtrs: [place] and [place]. Living Arrangements: Pt lives with in a single story house with a couple of steps to enter. Pt reports he is I in ADL's and denies concerns at home. Transportation: Pt drives self and denies concerns with transportation. also drives. DME/HHC/SNF: Pt denies having any DME in the home. He states he has had previous HHC but does not know which agency was set up, denies SNF stays. Pt wishes to return home and states has no concerns with going home at time of discharge.CM to follow for home oxygen needs and any further discharge planning/needs.? Pt voices no further concerns/needs at this time.? Advised pt to ask for CM if any further questions/concerns/needs arise.? Voices understanding. PLAN: ?Home Annemarie VEGA RN, CM
--- NOTE | 2022-05-14 12:38 | PCM.CONS.U ---
HPI Consult Data Date of Consult: 05/14/22 HPI Narrative Reason for Consultation: urinary retention HPI Narrative: JERAMY WOOD, is a 61 M who presents with retention of urine plan for a turp [facility] Medical History Acute embolism and thrombosis of deep vein of distal lower extremity Cardiomyopathy in other diseases classified elsewhere Encounter for screening for COVID-19 Family history of hypertension Hyperlipidemia Palpitations Paroxysmal atrial fibrillation Pure hypercholesterolemia URI (upper respiratory infection) Home Medications diphenhydramine HCl 50 mg capsule 50 mg PO QHS 12/26/21 [History Last Taken Unknown] flecainide 100 mg tablet 100 mg PO BID #180 tabs 12/31/21 [Rx Last Taken Unknown] metoprolol tartrate 25 mg tablet 25 mg PO BID #180 tabs 12/31/21 [Rx Last Taken Unknown] pravastatin 10 mg tablet 10 mg PO QHS #90 tabs 12/31/21 [Rx Last Taken Unknown] tamsulosin 0.4 mg capsule 0.4 mg PO DAILY 02/09/22 [History Last Taken Unknown] finasteride 5 mg tablet 5 mg PO DAILY 05/12/22 [History Last Taken Unknown] ciprofloxacin HCl 500 mg tablet 500 mg PO BID #14 TABLETS 05/13/22 [Rx Last Taken Unknown] Allergy/AdvReac Type Severity Reaction Status Date / Time No Known Allergies Allergy Verified 05/12/22 23:08 Family History Father Martha Gehrig disease Mother Myocardial infarction CAD (coronary artery disease) Brother Myocardial infarction, Onset Age: 60 Hypertension Multiple sclerosis Other Family history of hypertension Surgical History History of appendectomy History of left heart catheterization (LHC) Presence of IVC filter Social History Smoking Status: Never smoker alcohol intake: current alcohol intake frequency: a few times a week Alcohol type: beer substance use type: does not use caffeine: Yes Type: coffee Number of servings: 2 what type of physical activity do you participate in: none seatbelt use: always do you feel safe at home: Yes Lab / Micro Data Result Diagrams: 05/14/22 05:30 05/14/22 05:30 Labs: Laboratory Results - last 24 hr 05/14/22 05:30: WBC 10.5, RBC 4.00 L, Hgb 12.7 L, Hct 37.2 L, MCV 93.0, MCH 31.8, MCHC 34.1, RDW Std Deviation 43.9, RDW Coeff of Lance 12.9, Plt Count 107 L, MPV 9.7, Immature Gran % (Auto) 0.900, Neut % (Auto) 86.0 H, Lymph % (Auto) 6.6 L, [place] % (Auto) 6.1, Eos % (Auto) 0.2, Baso % (Auto) 0.2, Absolute Neuts (auto) 9.0 H, Absolute Lymphs (auto) 0.69 L, Nucleated RBC % 0 05/14/22 05:30: Sodium 140, Potassium 3.5, Chloride 109 H, Carbon Dioxide 23.0, Anion Gap 8, BUN 13, Creatinine 0.93, Estim Creat Clear Calc 91.55, Est GFR (MDRD) Af Amer 106, Est GFR (MDRD) Non-Af 88, BUN/Creatinine Ratio 14.0, Glucose 93, Calcium 8.0 L, Total Bilirubin 0.60, AST 32, ALT 61, Alkaline Phosphatase 86, Total Protein 5.7 L, Albumin 2.4 L, Globulin 3.3, Albumin/Globulin Ratio 0.7 L Micro: Microbiology 05/13/22 00:20 Urine, Clean Catch Urine Culture - Preliminary GNR Poss Pseudomonas sp 05/13/22 00:15 Blood Culture (Wb) - Arm Left Blood Culture - Preliminary GNR Poss Pseudomonas sp 05/12/22 23:45 Blood Culture (Wb) - Arm Left Blood Culture - Preliminary GNR Poss Pseudomonas sp Rhythm Strip Rhythm Strip: Sinus Tach Rate: 110 Ectopy: None
--- NOTE | 2022-05-14 12:39 | PCM.PN.HOSP ---
Subjective Subjective Follow-up on acute gram-negative vickie UTI and bacteremia: Patient was seen and examined. He feels improved today. Denies any diarrhea or nausea or vomiting. Objective Data Objective Data Vital Signs: Vital Signs Temp Pulse Resp BP Pulse Ox O2 Del Method 98.6 F 89 16 115/73 95 Room Air 05/14/22 07:55 05/14/22 07:55 05/14/22 07:55 05/14/22 07:55 05/14/22 07:55 05/14/22 07:55 Oxygen Delivery Method Room Air Weight: 89 kg Body Mass Index (BMI) 26.5 Intake & Output: Intake and Output for Last 24 Hours 05/12/22 05/13/22 05/14/22 23:59 23:59 23:59 Intake Total 4012.92 / 4012.92 150 / 150 Output Total 500 / 500 Balance 3512.92 / 3512.92 150 / 150 Lab / Micro Data Result Diagrams: 05/14/22 05:30 05/14/22 05:30 Labs: Laboratory Results - last 24 hr 05/14/22 05:30: WBC 10.5, RBC 4.00 L, Hgb 12.7 L, Hct 37.2 L, MCV 93.0, MCH 31.8, MCHC 34.1, RDW Std Deviation 43.9, RDW Coeff of Lance 12.9, Plt Count 107 L, MPV 9.7, Immature Gran % (Auto) 0.900, Neut % (Auto) 86.0 H, Lymph % (Auto) 6.6 L, [place] % (Auto) 6.1, Eos % (Auto) 0.2, Baso % (Auto) 0.2, Absolute Neuts (auto) 9.0 H, Absolute Lymphs (auto) 0.69 L, Nucleated RBC % 0 05/14/22 05:30: Sodium 140, Potassium 3.5, Chloride 109 H, Carbon Dioxide 23.0, Anion Gap 8, BUN 13, Creatinine 0.93, Estim Creat Clear Calc 91.55, Est GFR (MDRD) Af Amer 106, Est GFR (MDRD) Non-Af 88, BUN/Creatinine Ratio 14.0, Glucose 93, Calcium 8.0 L, Total Bilirubin 0.60, AST 32, ALT 61, Alkaline Phosphatase 86, Total Protein 5.7 L, Albumin 2.4 L, Globulin 3.3, Albumin/Globulin Ratio 0.7 L Micro: Microbiology 05/13/22 00:20 Urine, Clean Catch Urine Culture - Preliminary GNR Poss Pseudomonas sp 05/13/22 00:15 Blood Culture (Wb) - Arm Left Blood Culture - Preliminary GNR Poss Pseudomonas sp 05/12/22 23:45 Blood Culture (Wb) - Arm Left Blood Culture - Preliminary GNR Poss Pseudomonas sp 05/13/22 00:15 Nasal Secretion SARS-CoV-2 & FLU Antigen (Rapid) - Final Rhythm Strip Rhythm Strip: Sinus Tach Rate: 110 Ectopy: None Physical Exam Narrative Physical exam: General: Alert, Oriented x3, Cooperative HEENT: Atraumatic Oral: Moist Mucosa Neck: Supple Lungs: Diminished to auscultation Cardiovascular: HS I+II, regular, no murmurs Abdomen: Bowel Sounds Present, Soft, Non Tender Extremities: No edema Skin: No rashes, No breakdown Neurological: Grossly intact Psych/Mental Status: Appropriate Assessment & Plan Assessment/Plan (1) Acute cystitis without hematuria: (2) Prostatitis, acute: (3) SIRS (systemic inflammatory response syndrome): PLAN: Plan 1. Acute gram-negative vickie bacteremia and UTI, present on admission, slightly improved History of underlining BPH, patient deferred surgery on 07 May Blood and urine cultures are growing gram-negative vickie possibly Pseudomonas White cell count has improved Continue on IV Levaquin, follow-up on sensitivities Urology consulted; patient will be going for surgery tomorrow. 2. Hypotension, noted in the emergency room, resolved with fluid 3. Dehydration, improvement in patient's creatinine from 1.31 on admission to 0.93, with IV fluid Continue to trend lab 4. Paroxysmal atrial fibrillation, in normal sinus rhythm now, continue on flecainide 5. DVT PPx- SCDS as Lovenox on hold for surgery Charges/Coding Visit Charges Inpatient E&M: 80295 Subs Hosp L2
[2022-05-14] MEDS: DiphenhydrAMINE 25 MG Capsule 50 MG PO (22:17)
[2022-05-14] MEDS: Senna/Docusate Sodium 1 Tablet 2 TABLET PO (22:17)
[2022-05-14] MEDS: levoFLOXacin IV 750 MG/150 ML BAG 100 MG IV (22:18)
[2022-05-14] MEDS: Pravastatin 20 MG Tablet 10 MG PO (22:18)
[2022-05-15] VITALS (12 sets, daily range): BP systolic 108–149; BP diastolic 65–88; PULSE 75–103; RESP 16–18; TEMP 36.5–36.9; O2SAT 92–100
--- NOTE | 2022-05-15 | IMM_PTH ---
PATIENT: JERAMY WOOD LOC: MS2 U#:[id number] AGE/SX: 61/M [place] [facility] [place]/13/[address]: Dr. Mirna Shukla MD : 1960 BED: 1 DIS: 05/16/2022 SPEC #: [id number] RECD: 05/17/22 14:09 STATUS: JOHANNY REQ #: [id number] HERBER: 05/15/22 00:[address]: Rickey Jama DEPT: IMMUNOHISTOCHEMISTRY RECD BY: Karen León ENTERED: 05/17/22 14:11 SP TYPE: IMMUNO OTHR DR: MD Dr. Timoteo Carbone MD Dr. Jeffrey Burkey, MD Tissues: Prostate, NOS Procedures: 34BE12 (add) P40 (add) 34BE12 (initial) PHYSICIAN & INSTITUTION [place] [id number] SPECIMEN INFORMATION: Tissue Source: Prostate chips Clinical Info: BPH with obstruction Specimen Number: [id number] #4 & 6 CPT code: 45137, 29892 x3 METHODOLOGY: Deparaffinized sections of prefer/formalin-fixed tissue or PAP/DQ stained slides are incubated with monoclonal/polyclonal antibodies/oligonucleotide probes. Localization is made via biotin free immunoperoxidase method. Appropriate controls are performed and reacted as expected. Results on target cell population are indicated in the following table: RESULTS: ANTIBODY / CLONE RESULT Block 4 P40 (BC28) negative 34BE12 (34BE12) negative Block 6 P40 (BC28) negative 34BE12 (34BE12) negative These tests were developed and their performance characteristics determined by [facility]. They may not have been cleared or approved by the U.S. Food and Drug Administration. The FDA has determined that such clearance or approval is not necessary. The above immunohistochemical/dualISH markers are ordered and reviewed by the Pathologist. INTERPRETATION: Prostate chips, transurethral resection: Adenocarcinoma. JESUSITA:breanna 05/20/2022
[2022-05-15 06:09] LABS: Absolute Lymphocyte Count 1.39 X10^3/uL (0.83-4.51); Absolute Neutrophil Count 5.6 X10^3/uL (2.0-7.7); Basophil# 0.02 X10^3/uL; Basophil% 0.3 % (0-1); Eosinophil# 0.11 X10^3/uL; Eosinophils% 1.4 % (0-5); Hematocrit 38.3 % (40-54); Hemoglobin 12.7 g/dL (13.0-16.5); Lymphocyte # 1.39 X10^3/ul (0.83-4.51); Lymphocyte % 18.2 % (19-41); Mean Corp Hgb Conc 33.2 g/dL (32-36); Mean Corpuscular Hgb 30.8 pg (27.0-32.0); Mean Corpuscular Volume 92.7 fL (80-94); Mean Platelet Vol. 9.8 fl (6.2-12.0); Monocyte# 0.44 X10^3/uL; Monocyte% 5.8 % (0-10); NRBC Flagged by Analyzer 0 % (0-5); Neutrophil # 5.62 X10^3/uL (2.7-7.7); Neutrophil % 73.8 % (47-70); Platelet Count 123 K/mm3 (150-450); RBC Distribution Width CV 12.6 % (11.6-14.6); RBC Distribution Width SD 43.2 fl (35.1-43.9); Red Blood Count 4.13 M/mm3 (4.6-6.2); White Blood Count 7.6 K/mm3 (4.4-11.0)
[2022-05-15 06:38] LABS: ALB/GLOB Ratio 0.7 RATIO (0.9-2.4); AST(SGOT) 22 U/L (15-37); Alanine Aminotransfer ALT/SGPT 49 U/L (16-61); Albumin, Serum 2.6 g/dL (3.2-5.0); Alkaline Phosphatase 98 U/L (45-117); Anion Gap 5 (5-15); BUN 11 mg/dL (7-18); BUN/Creat Ratio 11.8 RATIO (10-20); Calcium,Total 8.5 mg/dL (8.5-10.1); Chloride 109 mmol/L (98-107); Creatinine, Serum 0.93 mg/dL (0.70-1.30); EST Glomerular Filtration Rate 87 mL/min (>60); Est Glom Filt Rate - Afr Amer 106 mL/min (>60); Estimated Creatinine Clearance 91.55 ml/min; Globulin 3.6 g/dL (2.2-4.2); Glucose 95 mg/dL (74-106); Potassium 3.6 mmol/L (3.5-5.1); Protein, Total 6.2 g/dL (6.4-8.2); Sodium Level 139 mmol/L (136-145)
[2022-05-15] MEDS: Flecainide 100 MG Tablet PO ×2 (07:42→23:18)
--- NOTE | 2022-05-15 07:49 | PCM.PN.HOSP ---
Subjective Subjective Follow-up on acute gram-negative vickie UTI and bacteremia: Patient was seen and examined.? No issues with. Denies any fever or chills. He is going for TURP this morning Objective Data Objective Data Vital Signs: Vital Signs Temp Pulse Resp BP Pulse Ox O2 Del Method 98.2 F 84 18 131/88 H 92 Room Air 05/15/22 05:38 05/15/22 05:38 05/15/22 05:38 05/15/22 05:38 05/15/22 05:38 05/15/22 05:38 Oxygen Delivery Method Room Air Weight: 89 kg Body Mass Index (BMI) 26.5 Intake & Output: Intake and Output for Last 24 Hours 05/13/22 05/14/22 05/15/22 23:59 23:59 23:59 Intake Total 4012.92 / 4012.92 150 / 150 750 / 750 Output Total 500 / 500 750 / 750 2650 / 2650 Balance 3512.92 / 3512.92 -600 / -600 -1900 / -1900 Lab / Micro Data Result Diagrams: 05/15/22 05:32 05/15/22 05:32 Labs: Laboratory Results - last 24 hr 05/15/22 05:32: WBC 7.6, RBC 4.13 L, Hgb 12.7 L, Hct 38.3 L, MCV 92.7, MCH 30.8, MCHC 33.2, RDW Std Deviation 43.2, RDW Coeff of Lance 12.6, Plt Count 123 L, MPV 9.8, Immature Gran % (Auto) 0.500, Neut % (Auto) 73.8 H, Lymph % (Auto) 18.2 L, [place] % (Auto) 5.8, Eos % (Auto) 1.4, Baso % (Auto) 0.3, Absolute Neuts (auto) 5.6, Absolute Lymphs (auto) 1.39, Nucleated RBC % 0 05/15/22 05:32: Sodium 139, Potassium 3.6, Chloride 109 H, Carbon Dioxide 25.0, Anion Gap 5, BUN 11, Creatinine 0.93, Estim Creat Clear Calc 91.55, Est GFR (MDRD) Af Amer 106, Est GFR (MDRD) Non-Af 87, BUN/Creatinine Ratio 11.8, Glucose 95, Calcium 8.5, Total Bilirubin 0.50, AST 22, ALT 49, Alkaline Phosphatase 98, Total Protein 6.2 L, Albumin 2.6 L, Globulin 3.6, Albumin/Globulin Ratio 0.7 L Micro: Microbiology 05/12/22 23:45 Blood Culture (Wb) - Arm Left Blood Culture - Final Pseudomonas aeroginosa 05/13/22 00:20 Urine, Clean Catch Urine Culture - Preliminary GNR Poss Pseudomonas sp 05/13/22 00:15 Blood Culture (Wb) - Arm Left Blood Culture - Preliminary GNR Poss Pseudomonas sp 05/13/22 00:15 Nasal Secretion SARS-CoV-2 & FLU Antigen (Rapid) - Final Rhythm Strip Rhythm Strip: Sinus Tach Rate: 110 Ectopy: None Physical Exam Narrative Physical exam: General: Alert, Oriented x3, Cooperative HEENT: Atraumatic Oral: Moist Mucosa Neck: Supple Lungs: Diminished to auscultation Cardiovascular: HS I+II, regular, no murmurs Abdomen: Bowel Sounds Present, Soft, Non Tender Extremities: No edema Skin: No rashes, No breakdown Neurological: Grossly intact Psych/Mental Status: Appropriate Assessment & Plan Assessment/Plan (1) Acute cystitis without hematuria: (2) Prostatitis, acute: (3) SIRS (systemic inflammatory response syndrome): PLAN: Plan 1. Acute gram-negative vickie bacteremia and UTI, present on admission, improved WBC is 7.6 from 13.6 Blood and urine cultures are growing gram-negative vickie possibly Pseudomonas Continue on IV Levaquin, follow-up on sensitivities 2. BPH, going for TURP this morning with urology 3. Hypotension, noted in the emergency room, resolved with fluid 3. Dehydration, improved, creatinine remains at 0.93 Creatinine admission was 1.31, will trend 4. Paroxysmal atrial fibrillation, in normal sinus rhythm now, continue on flecainide 5. DVT PPx- SCDS as Lovenox on hold for surgery Charges/Coding Visit Charges Inpatient E&M: 67465 Subs Hosp L2
[2022-05-15] MEDS: Dextrose 5%-Lactated Ringers 1,000 ML 75 ML IV (08:49)
[2022-05-15] MEDS: 0.9% Saline Lock 10 ML Syringe IV (08:50)
--- NOTE | 2022-05-15 12:20 | PROS_PTH ---
PATIENT: JERAMY WOOD LOC: MS2 U#:[id number] AGE/SX: 61/M [place] [facility] [place] RE05/13/[address]: Dr. Mirna Shukla MD : 1960 BED: 1 DIS: 05/16/2022 SPEC #: [id number] RECD: 05/15/22 14:49 STATUS: JOHANNY REQ #: [id number] HERBER: 05/15/22 12:[address]: Rickey Jama DEPT: SURGICAL PATHOLOGY RECD BY: Carmen Price ENTERED: 05/16/22 12:20 SP TYPE: TURP OTHR DR: MD Dr. Timoteo Carbone MD Dr. Jeffrey Burkey, MD Dr. Juan Miguel Proano, MD Tissues: Prostate, NOS Procedures: Surgery Specimen Level IV Comments: @ Ordering doctor for SUIV edited from to @ by DARSHAN at 05/16/22 1547 @ Submitting doctor edited from to @ by DARSHAN at 05/16/22 1547 HEADER OPERATION: Cysto, TUR prostate, Olympus PRE-OP DIAGNOSIS: BPH with obstruction TISSUE SUBMITTED: Prostate chips MICROSCOPIC DIAGNOSIS Prostate chips, transurethral resection: Prostatic adenocarcinoma. See cancer summary in the comment section. SJ:breanna 05/20/2022 COMMENT PROSTATE CANCER (TUR) SUMMARY: Procedure - transurethral resection of prostate (TURP) Histologic type ? acinar adenocarcinoma Histologic grade (Jumana Pattern) ? grade group 1 (Jumana score 3+3=6) Tumor Quantitation (TUR specimens): Proportion (%) of prostatic tissue involved by tumor ? 5-10% Periprostatic fat invasion ? not applicable Seminal vesicle invasion - not applicable Lymphvascular invasion ? not identified Perineural invasion ? not identified Additional pathologic findings ? benign prostatic hyperplasia, glandular and stromal type. - Acute and chronic inflammation. Treatment effect ? no known presurgical therapy. The above summary is in compliance with [employer] [place] [employer] (CAP) Cancer Protocols Checklist and [place] Joint Committee on Cancer (AJCC), Staging Manual, 8th Ed. Immunohistochemistry ([id number]) supports the above diagnosis. Case has been reviewed in consultation with Dr. Garcia who concurs with the above diagnosis. IDC:AM MICROSCOPIC DESCRIPTION Slides are reviewed. GROSS DESCRIPTION Received is one container labeled with the patient's name and designated prostate chips. The specimen consists of multiple irregular fragments of pink-rojas, rubbery, soft tissue that in aggregate weigh 11.6 gm and measure in aggregate 6 x 6 x 0.8 cm. Clay Thrower portions are submitted in ten cassettes. / AM:breanna 05/16/2022 The rest of the specimen is submitted in four more cassettes. / SJ:breanna 05/17/2022 TC:0 CPT: 20840
[2022-05-15] MEDS: Cefazolin 2 GM in 0.9% Normal Saline 100 ML IV (12:29)
--- NOTE | 2022-05-15 13:29 | OP.PCM_ITS ---
Report of Operation Date of Procedure: 05/15/22 Pre-Operative Diagnosis: BPH with obstruction recurrent urinary tract infections Post-Operative Diagnosis: Same Surgery/Procedure Performed:: Transurethral section of prostate Description of Surgical Findings:: In the preoperative setting I discussed with the patient how the surgery would be done with expect afterwards. We discussed how a prostate resection is done and we discussed the risk of the surgery including, bleeding, infection, retrograde ejaculation, changes with ejaculation or intercourse,. We discussed the possibility that the resection of the prostate may not alleviate his urinary symptoms. We discussed the small risk of developing scar tissue along the urethral channel and strictures. We also discussed the chance of the prostate could grow back and he may need further surgery or treatment in the future for prostate problems. Patient was taken back to the operating room, timeout procedure was performed, he was identified and marked and placed on the operating room table. He underwent general anesthesia. He was placed in dorsolithotomy position. Penis and testicles were prepped and draped in usual sterile fashion. Went into the bladder using the visual obturator with a resectoscope. Once inside the bladder identified the right and left ureteral orifice. I then identified the prostate and the anatomy of the prostate. I marked out the area of the sphincter and the verumontanum was identified. I then proceeded with the prostate resection first resected the median lobe. And then resected the right lobe of the prostate. Then to resect the left lobe of the prostate. I then resected the apical tissue of the prostate. This was a complete resection of all obstructive tissue to improve voiding and relieve obstruction. I then made sure that there was no injury to the sphincter or the verumontanum was still intact. At the end of the resection all the chips were Ellik out of the bladder. I then identified the left and right ureteral orifice and these were confirmed to be in good position and effluxing and not injured. The resectoscope was removed, a 22 English catheter was placed into the bladder on continuous irrigation. And the urine wa s fairly light pink color and draining normally. He was taken back to the PACU in good condition. Surgeon: Rickey Jama Type of Anesthesia: General Drains: 22 fr Admit VTE Documentation VTE Present on Admission: No VTE Mechan Device Prophylaxis: SCD's VTE Pharm Prophylaxis ordered?: No
[2022-05-15] MEDS: Polyethylene Glycol 3350 17 GM PACKET PO (14:37)
[2022-05-15] MEDS: Acetaminophen 325 MG Tablet 650 MG PO (20:08)
[2022-05-15] MEDS: Ondansetron 4 MG/2 ML Vial IV (20:09)
--- NOTE | 2022-05-15 23:00 | NURSING ---
PT WAS ASSISTED TO BR BY STAFF. STATED HE FELT LIKE HE NEEDED TO HAVE A BM. PT WAS ADVISED NOT TO BEAR DOWN WHILE ATTEMPTING TO GO. PT WAS NOTED TO BE TACHY ON THE MONITOR WHILE IN THE BATHROOM. WHEN HE USED CALL LIGHT TO REQUEST ASSISTANCE BACK TO BED, HE NOTED BLEEDING AROUND THE SITE OF THE CATHETER AND INDICATED HE HAD BEEN BEARING DOWN. PT WAS CLEANED AND GOWN WAS CHANGED. THERE WAS AN INCREASE IN THE AMOUNT OF BLOOD WITHIN THE CATHETER TUBING. BLEEDING AROUND THE MEATUS STOPPED; PT DENIED PAIN OR DISCOMFORT. PT WAS THEN GIVEN HS MEDS AND ADVISED TO CALL IF HE NOTED ANY ADDITIONAL BLEEDING.
[2022-05-15] MEDS: Pravastatin 20 MG Tablet 10 MG PO (23:17)
[2022-05-15] MEDS: Tamsulosin HCl 0.4 MG Capsule PO (23:17)
[2022-05-15] MEDS: DiphenhydrAMINE 25 MG Capsule 50 MG PO (23:25)
[2022-05-16] MEDS: Dextrose 5%-Lactated Ringers 1,000 ML 75 ML IV (01:10)
[2022-05-16 03:54] VITALS: BP 104/62; PULSE 97; RESP 16; TEMP 37.2; O2SAT 92
[2022-05-16] MEDS: Acetaminophen 325 MG Tablet 650 MG PO (06:25)
[2022-05-16] MEDS: Senna/Docusate Sodium 1 Tablet 2 TABLET PO (06:25)
[2022-05-16 06:45] LABS: Absolute Lymphocyte Count 0.79 X10^3/uL (0.83-4.51); Absolute Neutrophil Count 5.2 X10^3/uL (2.0-7.7); Basophil# 0.02 X10^3/uL; Basophil% 0.3 % (0-1); Eosinophil# 0.08 X10^3/uL; Eosinophils% 1.2 % (0-5); Lymphocyte # 0.79 X10^3/ul (0.83-4.51); Mean Corp Hgb Conc 33.3 g/dL (32-36); Mean Corpuscular Hgb 30.7 pg (27.0-32.0); Mean Platelet Vol. 9.5 fl (6.2-12.0); Monocyte# 0.47 X10^3/uL; Monocyte% 7.1 % (0-10); NRBC Flagged by Analyzer 0.5 % (0-5); Neutrophil # 5.19 X10^3/uL (2.7-7.7); Neutrophil % 78.6 % (47-70); Platelet Count 126 K/mm3 (150-450); RBC Distribution Width CV 12.7 % (11.6-14.6); RBC Distribution Width SD 42.8 fl (35.1-43.9); Red Blood Count 4.24 M/mm3 (4.6-6.2); White Blood Count 6.6 K/mm3 (4.4-11.0)
[2022-05-16 07:13] LABS: ALB/GLOB Ratio 0.7 RATIO (0.9-2.4); AST(SGOT) 23 U/L (15-37); Alanine Aminotransfer ALT/SGPT 41 U/L (16-61); Albumin, Serum 2.3 g/dL (3.2-5.0); Alkaline Phosphatase 107 U/L (45-117); Anion Gap 8 (5-15); BUN 13 mg/dL (7-18); BUN/Creat Ratio 12.4 RATIO (10-20); Chloride 110 mmol/L (98-107); Creatinine, Serum 1.05 mg/dL (0.70-1.30); EST Glomerular Filtration Rate 76 mL/min (>60); Est Glom Filt Rate - Afr Amer 92 mL/min (>60); Estimated Creatinine Clearance 81.09 ml/min; Globulin 3.4 g/dL (2.2-4.2); Glucose 111 mg/dL (74-106); Potassium 3.4 mmol/L (3.5-5.1); Protein, Total 5.7 g/dL (6.4-8.2); Sodium Level 141 mmol/L (136-145)
--- NOTE | 2022-05-16 07:29 | PCM.CONS.B ---
Consult Date of Consult: 05/16/22 Reason for Consult Status post TURP for BPH with obstruction and recurrent urinary tract infections, he had Pseudomonas infection was pansensitive he should build to go home with some oral antibiotics either Levaquin or Cipro. I will give him a Dulcolax suppository to help move the bowels and will remove the catheter today and probably can be discharged after he is able to urinate freely.
[2022-05-16 08:00] VITALS: BP 116/74; PULSE 87; RESP 16; TEMP 37; O2SAT 95
[2022-05-16] MEDS: Bisacodyl 10 MG Suppository RC (08:37)
[2022-05-16] MEDS: Potassium Chloride Oral Tablet 20 MEQ 60 MEQ PO (08:37)
[2022-05-16] MEDS: Aspirin 81 MG TAB.CHEW PO (08:37)
[2022-05-16] MEDS: Finasteride 5 MG Tablet PO (08:38)
[2022-05-16] MEDS: Flecainide 100 MG Tablet PO (08:38)
[2022-05-16] MEDS: Tamsulosin HCl 0.4 MG Capsule PO (08:38)
--- NOTE | 2022-05-16 10:21 | DCINST_ITS ---
Discharge Instructions Diet Discharge Diet: No restrictions Activity Discharge Activity: Return to Normal Activity Dressing / Incision Call your doctor if you observe: Fever of 101 or Higher, Inability to urinate and Uncontrolled pain Follow Up Care Test Results: Test results from this visit will be discussed in further detail at your follow- up appointment, if applicable. Discharge Plan Admission Admit Date/Time: 05/13/22 04:37 Primary Reason for Your Visit: Acute Pseudomonas bacteria/Pseudomonas UTI Attending Provider: Mirna Shukla Primary Care Provider: Shan Desai Consulting Providers: Timoteo Gee ; Rickey Jama Instructions Additional Instructions / Restrictions: Complete your antibiotics as prescribed Follow-up with your primary care doctor within 1 week Follow-up with urology within 2-week Discharge Orders/Prescriptions Prescriptions: New ciprofloxacin HCl [ciprofloxacin HCl] 500 MG tablet 500 mg PO BID Qty: 14 0RF Continued diphenhydramine HCl 50 mg capsule 50 mg PO QHS tamsulosin 0.4 mg capsule 0.4 mg PO DAILY Label Comments: TAKE 1 CAPSULE BY MOUTHAEVERY NIGHT AT BEDTIMETC finasteride 5 mg tablet 5 mg PO DAILY flecainide 100 mg tablet 100 mg PO BID Qty: 180 3RF metoprolol tartrate 25 mg tablet 25 mg PO BID Qty: 180 3RF pravastatin 10 mg tablet 10 mg PO QHS Qty: 90 3RF Referrals / Follow Up: Shan Desai MD [Primary Care Provider] - 2 Days Rickey Jama MD [Med Staff - Active Staff] - Within 2 Weeks (or as scheduled) Disposition Discharge Orders: Discharge Patient (Routine); Ordered 05/16/22 Ordered By: Dr. Mirna Shukla
--- NOTE | 2022-05-16 10:24 | DS.PCM_ITS ---
Providers Date of Admission: 05/13/22 Date of Discharge: 05/16/22 Primary Care Physician: Dr. Shan Desai MD Consultations 05/14/22 12:36 Consult: Urology Routine Consulting Provider: Rickey Jama Reason for Consult: urinarr retention EMERGENT Consult: No MD Notified: Yes Date Notified: 05/14/22 Time Notified: 12:37 Method of Notification: Verbal Reason For Visit: UTI Diagnosis Discharge Diagnosis (1) Acute cystitis without hematuria: Status: Acute Code(s): N30.00 - Acute cystitis without hematuria (2) Prostatitis, acute: Status: Acute Code(s): N41.0 - Acute prostatitis (3) SIRS (systemic inflammatory response syndrome): Status: Acute Code(s): R65.10 - Systemic inflammatory response syndrome (SIRS) of non-infectious origin without acute organ dysfunction Plan 1. Acute Pseudomonas bacteremia/UTI 2. Postop day #1 status post TURP for BPH 3. Hypotension 3. Dehydration 4. Paroxysmal atrial fibrillation Medications at Discharge Home Medications diphenhydramine HCl 50 mg capsule 50 mg PO QHS 12/26/21 flecainide 100 mg tablet 100 mg PO BID #180 tabs 12/31/21 metoprolol tartrate 25 mg tablet 25 mg PO BID #180 tabs 12/31/21 pravastatin 10 mg tablet 10 mg PO QHS #90 tabs 12/31/21 tamsulosin 0.4 mg capsule 0.4 mg PO DAILY 02/09/22 finasteride 5 mg tablet 5 mg PO DAILY 05/12/22 ciprofloxacin HCl 500 mg tablet 500 mg PO BID #14 TABLETS 05/13/22 Hospital Course Operations TURP (05/15/22) Procedures None Summary of Care Provided Minutes Spent on Discharge: 35 Hospital Course: 61-year-old with past medical history of BPH, who was due for TURP on 05/07/22 but deferred for personal reasons, history of paroxysmal atrial fibrillation flecainide, who comes in with complaints of dysuria, fever and chills ongoing for 3 days. He admitted to having incomplete emptying of his bladder, lower abdominal discomfort. In the emergency room, patient was relatively hypotensive but responded to fluids. He was managed on the [facility] floor as acute UTI on IV fluids and IV Levaquin. He initially was slightly tachycardic and febrile but improved with IV fluids and further monitoring. Patient blood cultures came back positive for Pseudomonas secondary to his positive Pseudomonas UTI. Urology was consulted, patient underwent TURP on 05/15/22. Postoperatively, he did well, he has some slight hematuria. No more fevers, vitals were stable. He was able to tolerate a diet. He was not on oxygen. He was discharged to follow-up with his primary care doctor within 1 week and also with urology in 2 weeks as already scheduled. Physical Exam Narrative Physical exam: General: Alert, Oriented x3, Cooperative HEENT: Atraumatic Oral: Moist Mucosa Neck: Supple Lungs: Diminished to auscultation Cardiovascular: HS I+II, regular, no murmurs Abdomen: Bowel Sounds Present, Soft, Non Tender Extremities: No edema Skin: No rashes, No breakdown Neurological: Grossly intact Psych/Mental Status: Appropriate Weight / BMI Weight Weight: 89 kg Body Mass Index (BMI) 26.5 ABG / Lab / Microbiology Data Result Diagrams: 05/16/22 06:02 05/16/22 06:02 Laboratory: Laboratory Results - last 24 hr 05/16/22 06:02: WBC 6.6, RBC 4.24 L, Hgb 13.0, Hct 39.0 L, MCV 92.0, MCH 30.7, MCHC 33.3, RDW Std Deviation 42.8, RDW Coeff of Lance 12.7, Plt Count 126 L, MPV 9.5, Immature Gran % (Auto) 0.800, Neut % (Auto) 78.6 H, Lymph % (Auto) 12.0 L, [place] % (Auto) 7.1, Eos % (Auto) 1.2, Baso % (Auto) 0.3, Absolute Neuts (auto) 5.2, Absolute Lymphs (auto) 0.79 L, Nucleated RBC % 0.5 05/16/22 06:02: Sodium 141, Potassium 3.4 L, Chloride 110 H, Carbon Dioxide 23.0, Anion Gap 8, BUN 13, Creatinine 1.05, Estim Creat Clear Calc 81.09, Est GFR (MDRD) Af Amer 92, Est GFR (MDRD) Non-Af 76, BUN/Creatinine Ratio 12.4, Glucose 111 H, Calcium 8.0 L, Total Bilirubin 0.50, AST 23, ALT 41, Alkaline Phosphatase 107, Total Protein 5.7 L, Albumin 2.3 L, Globulin 3.4, Albumin/Globulin Ratio 0.7 L Microbiology: Microbiology 05/13/22 00:20 Urine, Clean Catch Urine Culture - Final Pseudomonas aeroginosa 05/13/22 00:15 Blood Culture (Wb) - Arm Left Blood Culture - Final GNR Poss Pseudomonas sp 05/12/22 23:45 Blood Culture (Wb) - Arm Left Blood Culture - Final Pseudomonas aeroginosa 05/13/22 00:15 Nasal Secretion SARS-CoV-2 & FLU Antigen (Rapid) - Final D/C Instructions Discharge Diet: No restrictions Call your doctor if you observe: Fever of 101 or Higher, Inability to urinate and Uncontrolled pain Meaningful Use Info Meaningful Use Diagnoses (Choose all that apply): None applicable Discharge Plan Admission Admit Date/Time: 05/13/22 04:37 Primary Reason for Your Visit: Acute Pseudomonas bacteria/Pseudomonas UTI Attending Provider: Mirna Shukla Primary Care Provider: Shan Desai Consulting Providers: Timoteo Gee ; Rickey Jama Instructions Additional Instructions / Restrictions: Complete your antibiotics as prescribed Follow-up with your primary care doctor within 1 week Follow-up with urology within 2-week Discharge Orders/Prescriptions Prescriptions: New ciprofloxacin HCl [ciprofloxacin HCl] 500 MG tablet 500 mg PO BID Qty: 14 0RF Continued diphenhydramine HCl 50 mg capsule 50 mg PO QHS tamsulosin 0.4 mg capsule 0.4 mg PO DAILY Label Comments: TAKE 1 CAPSULE BY MOUTHAEVERY NIGHT AT BEDTIMETC finasteride 5 mg tablet 5 mg PO DAILY flecainide 100 mg tablet 100 mg PO BID Qty: 180 3RF metoprolol tartrate 25 mg tablet 25 mg PO BID Qty: 180 3RF pravastatin 10 mg tablet 10 mg PO QHS Qty: 90 3RF Referrals / Follow Up: Shan Desai MD [Primary Care Provider] - 2 Days Rickey Jama MD [Med Staff - Active Staff] - Within 2 Weeks (or as scheduled) Disposition Discharge Orders: Discharge Patient (Routine); Ordered 05/16/22 Ordered By: Dr. Mirna Shukla Charges/Coding Visit Charges Inpatient E&M: 25004 Disch Hosp >30min
== END 2022-05-16 12:15 | disposition home or self-care (01) | DRG 713 ==
LOC: ED 05-13 04:37 → MS2 05-13 04:53
PROVIDERS: Urology; Admitting Provider Hospitalist; Emergency Provider Emergency Medicine; PCP Family Medicine; Visit Provider Internal Medicine
PROC: 0VT08ZZ Resection of Prostate, Via Natural or Artificial Opening Endoscopic (ICD-10-PCS; principal; 2022-05-15 12:10)
DX: N40.1 Benign prostatic hyperplasia with lower urinary tract symptoms (principal); N13.8 Other obstructive and reflux uropathy; R78.81 Bacteremia; N30.00 Acute cystitis without hematuria; I95.9 Hypotension, unspecified; I48.0 Paroxysmal atrial fibrillation; E86.0 Dehydration; D72.810 Lymphocytopenia; E78.00 Pure hypercholesterolemia, unspecified; B96.5 Pseudomonas (aeruginosa) (mallei) (pseudomallei) as the cause of diseases classified elsewhere; N41.0 Acute prostatitis; R39.14 Feeling of incomplete bladder emptying; R33.8 Other retention of urine; R74.8 Abnormal levels of other serum enzymes; Z20.822 Contact with and (suspected) exposure to COVID-19; Z79.899 Other long term (current) drug therapy
CPT/HCPCS: 36415; 71045; 80053; 81001; 83605; 85025; 85610; 85730; 87040; 87077; 87086; 87088; 87184; 87186; 87428; 88305; 88341; 88342; 93005; 99285; J7030; A4216; J2405

== ENCOUNTER → 2022-05-30 | Outpatient (CLI) | payer MEDICARE, SELFPAY ==
[2022-05-30 13:04] LABS: PSA,Total- Diagnostic 2.44 ng/mL (0.0-4.0)
== END | disposition home or self-care (01) ==
LOC: LAB 10:54
PROVIDERS: PCP Family Medicine; Visit Provider Registered Nurse
DX: C61 Malignant neoplasm of prostate (principal)
CPT/HCPCS: 36415; 84153

== ENCOUNTER → 2022-06-10 | Outpatient (CLI) | payer MEDICARE, SELFPAY ==
--- NOTE | 2022-06-10 08:30 | RAD_ITS ---
EXAMINATION: Air contrast UPPER GI SERIES INDICATION: Male, 61 years intermittent chronic cough. Gastroesophageal reflux disease. FLUOROSCOPY TIME (if supplied): (0:48) minutes/seconds TECHNIQUE: Radiographic and fluoroscopic images of the distal esophagus, stomach, and proximal small intestine were obtained following the oral ingestion of barium. COMPARISON: None. FINDINGS: There is no evidence for organomegaly, abnormal calcifications, or abnormal bowel gas pattern. The psoas margins and flank stripes are normal. Degenerative changes of the spine. The mucosa of the esophagus, stomach and duodenum is normal in appearance without evidence for stricture, ulceration, mass or diverticulum. There is no evidence for hiatal hernia or gastroesophageal reflux. The stomach is unremarkable. No evidence of ulceration. No mass lesion is seen. There is a 4.5 cm x 2.7 cm diverticulum in the third portion of the duodenum. There is also evidence of a 2.3 cm x 1.4 cm diverticulum in the proximal jejunum. RAD/Upper GI Dual Contrast IMPRESSION: 1. Unremarkable esophagus and stomach. No evidence of gastroesophageal reflux. 2. Diverticulum in the third portion of the duodenum as well as in the proximal jejunum. Electronically Signed: Edu Clayton MD at 14:03 [facility] ,
== END | disposition home or self-care (01) ==
LOC: RAD 08:09
PROVIDERS: PCP Family Medicine; Visit Provider Family Medicine
DX: I86.2 Pelvic varices (principal); R05.3 Chronic cough
CPT/HCPCS: 74246

== ENCOUNTER → 2022-09-27 | Outpatient (CLI) | payer MEDICARE, SELFPAY ==
[2022-09-27 12:33] LABS: PSA,Total- Diagnostic 2.82 ng/mL (0.0-4.0)
== END | disposition home or self-care (01) ==
LOC: LAB 10:27
PROVIDERS: PCP Family Medicine; Referring Provider Registered Nurse; Visit Provider Registered Nurse
DX: C61 Malignant neoplasm of prostate (principal)
CPT/HCPCS: 36415; 84153

== ENCOUNTER → 2023-03-22 | Outpatient (CLI) | payer MEDICARE, SELFPAY | END | disposition home or self-care (01) | LOC: LAB 09:57 | PROVIDERS: PCP Family Medicine; Referring Provider Urology; Visit Provider Urology | DX: C61 Malignant neoplasm of prostate (principal) | CPT/HCPCS: 36415; 84153 ==

== ENCOUNTER 2023-03-24 20:26 | Inpatient (IN) | payer MEDICARE, SELFPAY ==
[2023-03-24 20:28] VITALS: BP 133/94; PULSE 66; RESP 14; TEMP 36.8; O2SAT 96; BMI 26.4
--- NOTE | 2023-03-24 21:05 | EKG12_ITS ---
Test Reason : CP Blood Pressure : / mmHG Vent. Rate : 059 BPM Atrial Rate : 059 BPM P-R Int : 214 ms QRS Dur : 084 ms QT Int : 392 ms P-R-T Axes : 060 063 059 degrees QTc Int : 388 ms Sinus bradycardia with 1st degree A-V block Otherwise normal ECG Confirmed by MIKE KESSLER, REED ([id number]), rewrite editor MELECIO ORTEGA ([id number]) on 04/02/2023 10:10:45 AM Referred By: Confirmed By:REED MCKEON MD
--- NOTE | 2023-03-24 21:06 | EDS_ITS ---
HPI History of Present Illness Chief Complaint: Chest Pain Narrative Narrative: 62-year-old male past medical history of atrial fibrillation, not on blood thinners, hypercholesterolemia, presents with his because of intermittent back pain that he has been having over the last few days. He also gets the chest pressure. He states the pain is between his shoulder blades and radiates downward at times. He denies any fevers or chills, no cough. He was able to mow the lawn today without incident. There is no predictability of the pain that he has between his shoulder blades and in his chest. He denies any leg swelling. He states that the pain is fleeting and does not really last more than a minute. Although he did not really have problems today, while he was in the emergency department he had 2 episodes of this fleeting pain. He was told by his hand fabric cutter to come to the emergency department for evaluation. [facility] Medical History Acute embolism and thrombosis of deep vein of distal lower extremity Cardiomyopathy in other diseases classified elsewhere Encounter for screening for COVID-19 Family history of hypertension Hyperlipidemia Palpitations Paroxysmal atrial fibrillation Pure hypercholesterolemia URI (upper respiratory infection) Home Medications diphenhydramine HCl 50 mg capsule 50 mg PO QHS 12/26/21 [History Last Taken Unknown] pravastatin 10 mg tablet 10 mg PO QHS #90 tabs 02/05/23 [Rx Last Taken Unknown] flecainide 100 mg tablet 100 mg PO BID #180 tabs 03/18/23 [Rx Last Taken Unknown] metoprolol tartrate 25 mg tablet 25 mg PO BID #180 tabs 03/18/23 [Rx Last Taken Unknown] Allergy/AdvReac Type Severity Reaction Status Date / Time No Known Allergies Allergy Verified 03/24/23 20:27 Family History Father Martha Gehrig disease Mother Myocardial infarction CAD (coronary artery disease) Brother Myocardial infarction, Onset Age: 60 Hypertension Multiple sclerosis Other Family history of hypertension Surgical History History of appendectomy History of left heart catheterization (LHC) Presence of IVC filter Social History Smoking Status: Never smoker alcohol intake: current alcohol intake frequency: a few times a week Alcohol type: beer substance use type: does not use caffeine: Yes Type: coffee Number of servings: 2 what type of physical activity do you participate in: none seatbelt use: always do you feel safe at home: Yes ROS ROS ED ROS Narrative Constitutional: No fever, no chills. HEENT: No sore throat. No neck pain. No loss of vision. No rhinorrhea. Cardiovascular: Positive chest pain. Positive back pain between shoulder blades. No palpitations. No pedal edema. Respiratory: No cough, no shortness of breath. Abdominal: No abdominal pain. No nausea. No vomiting. Genitourinary: No dysuria. No hematuria. Musculoskeletal: No myalgias. No arthralgias. Neurologic: No headaches. No dizziness. No lightheadedness. Skin: No rash. No change in color. Psychiatric: No depression. No anxiety. EXAM Physical Exam Const Vital Signs: 03/24/23 20:28 03/24/23 21:17 03/24/23 21:18 Temperature 98.2 F Temperature Source Temporal Pulse Rate 66 62 Respiratory Rate 14 12 Respiratory Effort Normal Non-Labored Blood Pressure 133/94 H 129/92 H Blood Pressure Mean 107 104 Pulse Ox 96 97 Oxygen Delivery Method Room Air Room Air Heart Score History: Slightly/Non-Suspicious ECG: Normal Age: >45 - <65 years Risk Factors: 1 or 2 Risk Factors Score: 2 MDM MDM MDM Narrative Medical decision making narrative: In the differential diagnosis is acute coronary syndrome/ischemic pain versus aortic dissection versus pneumothorax versus pneumonia. I have lower suspicion of aortic dissection as he has equal pulses and appropriate blood pressure in [facility] emergency department. He denies any tearing sensation to his back. I have lower suspicion for PE as well as he is PERC negative. I do not feel CTA is currently indicated. I will obtain a D-dimer to help rule out a PE and dissection as well. His history and physical is not supportive of a pneumothorax or pneumonia. EKG was obtained and interpreted by myself independently as normal sinus rhythm/bradycardia at 59 bpm without ectopy or acute ST changes. No STEMI. 1 view chest x-rays obtained and reviewed by myself independently, I do not see pneumothorax or consolidation or widened mediastinum. I reviewed the radiology report which confirms my independent interpretation and remarks on atelectasis in the right lobe versus consolidation. I do not feel antibiotics are indicated because he does not have a high fever or white count. He has normal pulse ox. I reviewed his laboratory work and his white count is normal at 7.7, hemoglobin stable at 15.0, platelet count slightly low at 149 which I think is nonspecific, D-dimer is negative at less than 0.27, hence I have low suspicion for pulmonary embolism or aortic dissection. He does not have any tearing sensation in his back. BMP shows slight elevation of his BUN with a normal creatinine. Initial high-sensitivity troponin is 38. Patient declined any analgesics here in the emergency department. He is resting comfortably upon repeat examination. At this point in time, he will be signed out to the oncoming physician, Dr. Damion Cuellar to check the repeat troponin. I feel as long as it is negative, that he would be able to be discharged to follow-up with his primary care provider. He and his state that they were sent by the hand fabric cutter to help rule out the chest pain portion. He may be having more thoracic back pain and radiculopathy. I anticipate his discharge pending his troponin. Patient is in stable condition. History & Record Review Discussion w/independent historian: Patient and Family Additional record(s) reviewed:: Prior ED visit Lab Data Attestation: I reviewed the patient's lab results. Labs: Laboratory Results - last 24 hr 03/24/23 21:20 WBC 7.7 RBC 4.77 Hgb 15.0 Hct 44.3 MCV 92.9 MCH 31.4 MCHC 33.9 RDW Std Deviation 41.7 RDW Coeff of Lance 12.2 Plt Count 149 L MPV 9.5 Immature Gran % (Auto) 0.400 Neut % (Auto) 49.9 Lymph % (Auto) 34.1 Dewitt % (Auto) 9.9 Eos % (Auto) 4.9 Baso % (Auto) 0.8 Absolute Neuts (auto) 3.9 Absolute Lymphs (auto) 2.64 Nucleated RBC % 0 D-Dimer Quant (PE/DVT) < 0.27 L Sodium 138 Potassium 3.9 Chloride 107 Carbon Dioxide 24.0 Anion Gap 7 BUN 20 H Creatinine 1.22 Estim Creat Clear Calc 68.91 Est GFR (MDRD) Af Amer 77 Est GFR (MDRD) Non-Af 64 BUN/Creatinine Ratio 16.4 Glucose 90 Calcium 8.8 Troponin I High Sens 38 Radiography Diagnostic Testing: Clinical Impression(s) from Imaging Studies Chest X-Ray 03/24/23 21:20 IMPRESSION: Subtle right basilar pulmonary opacity may be atelectasis or pneumonia. Electronically Signed: Will VNydia Jacobson, at 21:34 EST , Discharge Plan Triage Chief Complaint: Chest Pain ED Provider: Nathanael Dunne Dx/Rx/DC Orders Clinical Impression: Thoracic back pain, Chest pain Instructions: ED Chest Pain, Uncertain Cause, ED Pain, Acute, Uncertain Cause Prescriptions: No Action diphenhydramine HCl 50 mg capsule 50 mg PO QHS pravastatin 10 mg tablet 10 mg PO QHS Qty: 90 3RF metoprolol tartrate 25 mg tablet 25 mg PO BID Qty: 180 3RF flecainide 100 mg tablet 100 mg PO BID Qty: 180 3RF Primary Care Provider: Shan Desai Referrals: Shan Desai MD [Primary Care Provider] - Disposition Disposition: Home, Self Care
[2023-03-24 21:17] VITALS: BP 129/92; PULSE 62; RESP 12; O2SAT 97
--- NOTE | 2023-03-24 21:20 | RAD_ITS ---
EXAM: XR CHEST, 1 VIEW CLINICAL INDICATION: chest pain TECHNIQUE: Frontal view of the chest. COMPARISON: 05/13/2022 FINDINGS: LUNGS AND PLEURAL SPACES: Subtle right basilar pulmonary opacity may be atelectasis or pneumonia. No pneumothorax. No effusion. HEART: No significant abnormality. Cardiac silhouette not enlarged. MEDIASTINUM: Central airways and mediastinal contour are unremarkable. BONES/JOINTS: Degenerative changes in the spine. SOFT TISSUES: No significant abnormality. RAD/Chest 1 View (Portable) IMPRESSION: Subtle right basilar pulmonary opacity may be atelectasis or pneumonia. Electronically Signed: Will Jacobson DO at 21:34 EST ,
[2023-03-24 21:28] LABS: Absolute Lymphocyte Count 2.64 X10^3/uL (0.83-4.51); Absolute Neutrophil Count 3.9 X10^3/uL (2.0-7.7); Basophil# 0.06 X10^3/uL; Basophil% 0.8 % (0-1); Eosinophil# 0.38 X10^3/uL; Eosinophils% 4.9 % (0-5); Hematocrit 44.3 % (40-54); Lymphocyte # 2.64 X10^3/ul (0.83-4.51); Lymphocyte % 34.1 % (19-41); Mean Corp Hgb Conc 33.9 g/dL (32-36); Mean Corpuscular Hgb 31.4 pg (27.0-32.0); Mean Corpuscular Volume 92.9 fL (80-94); Mean Platelet Vol. 9.5 fl (6.2-12.0); Monocyte# 0.77 X10^3/uL; Monocyte% 9.9 % (0-10); NRBC Flagged by Analyzer 0 % (0-5); Neutrophil # 3.86 X10^3/uL (2.7-7.7); Neutrophil % 49.9 % (47-70); Platelet Count 149 K/mm3 (150-450); RBC Distribution Width CV 12.2 % (11.6-14.6); RBC Distribution Width SD 41.7 fl (35.1-43.9); Red Blood Count 4.77 M/mm3 (4.6-6.2); White Blood Count 7.7 K/mm3 (4.4-11.0)
[2023-03-24 21:45] LABS: Anion Gap 7 (5-15); BUN 20 mg/dL (7-18); BUN/Creat Ratio 16.4 RATIO (10-20); Calcium,Total 8.8 mg/dL (8.5-10.1); Chloride 107 mmol/L (98-107); Creatinine, Serum 1.22 mg/dL (0.70-1.30); EST Glomerular Filtration Rate 64 mL/min (>60); Est Glom Filt Rate - Afr Amer 77 mL/min (>60); Estimated Creatinine Clearance 68.91 ml/min; Glucose 90 mg/dL (74-106); Potassium 3.9 mmol/L (3.5-5.1); Sodium Level 138 mmol/L (136-145); Troponin-I HS (w/2H Reflex) 38 pg/mL (3.0-78.0)
[2023-03-24 21:47] LABS: D-Dimer Quantitative (DVT/PE) < 0.27 FEU/ug/m (0.27-0.49)
[2023-03-24 22:00] VITALS: PULSE 72
[2023-03-24 23:00] VITALS: PULSE 75
[2023-03-24 23:25] LABS: Reflex Troponin-HS? (from REC) Y
[2023-03-25] VITALS (10 sets, daily range): BP systolic 102–128; BP diastolic 71–84; PULSE 57–74; RESP 14–17; TEMP 36.3–36.6; O2SAT 92–98; BMI 26.0
[2023-03-25 00:06] LABS: Troponin-I HS 55 pg/mL (3.0-78.0)
--- NOTE | 2023-03-25 00:21 | PCM.HP.STD ---
HPI - General General Date of Admission: 03/25/23 Date of Service: 03/25/23 Chief Complaint: Chest Pain HPI Narrative JERAMY WOOD, is a 62 M who presented to the emergency department at [facility] on 03/25/2023 complaining of chest pressure. Patient states he has had several episodes of this and is typically been happening in the morning however today he had several bouts of this. He has no associated symptoms but does complain that it is located in his central chest and radiates to his upper back and between his scapula bilaterally but favors the left slightly. He has no personal history of coronary disease however he had a brother that had stent placements and his first stent was placed when he was 60 years old. He does not utilize tobacco. He does have a history of paroxysmal atrial fibrillation for which he takes flecainide but is not anticoagulated as his [id number] score is 0. He had 3 episodes in total today. 1 this morning, 1 in the afternoon, and 1 this evening. Patient states he has been able to mow his yard however he has been on a riding mower and not doing any significant physical exertion. His vital signs were unremarkable. His CBC is unremarkable other than thrombocytopenia which appears to be chronic when compared to previous data. His chemistry panel was unremarkable. His initial troponin was 38 with a repeat at 55. D-dimer was less than 0.27. Chest x-ray upon my review was unremarkable however radiology did describe a right lower lobe possible infiltrate versus atelectasis. EKG shows normal sinus rhythm with a first-degree heart block and no ST-T wave changes concerning for acute ischemia. With the pain radiating to his back the way that it has been I will get a CTA of his chest to rule out dissection. [facility] Medical History Acute embolism and thrombosis of deep vein of distal lower extremity Cardiomyopathy in other diseases classified elsewhere Encounter for screening for COVID-19 Family history of hypertension Hyperlipidemia Palpitations Paroxysmal atrial fibrillation Pure hypercholesterolemia URI (upper respiratory infection) Home Medications diphenhydramine HCl 50 mg capsule 50 mg PO QHS 12/26/21 [History Last Taken Unknown] pravastatin 10 mg tablet 10 mg PO QHS #90 tabs 02/05/23 [Rx Last Taken Unknown] flecainide 100 mg tablet 100 mg PO BID #180 tabs 03/18/23 [Rx Last Taken Unknown] metoprolol tartrate 25 mg tablet 25 mg PO BID #180 tabs 03/18/23 [Rx Last Taken Unknown] Allergy/AdvReac Type Severity Reaction Status Date / Time No Known Allergies Allergy Verified 03/24/23 20:27 Family History Father Marhta Gehrig disease Mother Myocardial infarction CAD (coronary artery disease) Brother Myocardial infarction, Onset Age: 60 Hypertension Multiple sclerosis Other Family history of hypertension Surgical History History of appendectomy History of left heart catheterization (LHC) Presence of IVC filter Social History (Updated 03/25/23 @ 00:[address] Mary Ellen Edmondson DO) household members: spouse housing: house Smoking Status: Never smoker alcohol intake: current alcohol intake frequency: a few times a week Alcohol type: beer substance use type: does not use caffeine: Yes Type: coffee Number of servings: 2 what type of physical activity do you participate in: none seatbelt use: always do you feel safe at home: Yes ROS Constitutional Constitutional: Denies anorexia, change in weight, chills, fatigue, fever(s), malaise, night sweats, weakness or other Eyes Eyes: Denies blurry vision, change in eye color, change in vision, discharge from eye(s), double vision, erythema, eye pain, loss of vision or other ENT HEENT: Denies abnormal hearing, dysphagia, ear pain, epistaxis, headache(s), hearing loss, nasal congestion, nasal discharge, post nasal drip, sinus pressure, sore throat or other Cardiovascular Cardiovascular: Reports chest pain; Denies claudication, dyspnea on exertion, edema, lightheadedness, orthopnea, palpitations, paroxysmal nocturnal dyspnea, rapid heart rate, syncope or other Respiratory/Chest Respiratory/Chest: Denies cough, dyspnea, excessive phlegm production, hemoptysis, productive cough, shortness of breath at rest, shortness of breath with exertion, wheezing or other Gastrointestinal Gastrointestinal: Denies abdominal pain, coffee ground emesis, constipation, diarrhea, dyspepsia, hematemesis, hematochezia, loose stools, melena, nausea, vomiting or other Genitourinary Genitourinary: Denies burning urination, difficulty urinating, dysuria, hematuria, nocturia, urinary frequency, urinary hesitancy, urinary incontinence, urinary urgency or other Musculoskeletal Musculoskeletal: Reports back pain; Denies arthralgias, joint pain, joint stiffness, joint swelling, myalgias, neck pain or other Neurologic Neurologic: Denies abnormal gait, abnormal speech, confusion, disequilibrium, dizziness, focal weakness, headache(s), numbness, paresthesias, seizure-like activity, seizures, syncope, tingling, tremor(s) or other Psychiatric Psychiatric: Denies anxiety, depression, homicidal ideation, suicidal ideation or other Endocrine Endocrinology: Denies change in body appearance, cold intolerance, excessive sweating, heat intolerance, polydipsia, polyuria or other Hematologic/Lymphatic Hematologic/Lymphatic: Denies anemia, easy bleeding, easy bruising, lymphadenopathy or other Allergic/Immunologic Allergic/Immunologic: Denies rhinitis, hives, eczemia, asthma or other Vital Signs Vital Signs Vital Signs: 03/24/23 20:28 03/24/23 21:17 03/24/23 21:18 Temperature 98.2 F Temperature Source Temporal Pulse Rate 66 62 Respiratory Rate 14 12 Respiratory Effort Normal Non-Labored Blood Pressure 133/94 H 129/92 H Blood Pressure Mean 107 104 Pulse Ox 96 97 Oxygen Delivery Method Room Air Room Air 03/24/23 22:00 03/24/23 23:00 03/25/23 00:00 Temperature Temperature Source Pulse Rate 72 75 72 Respiratory Rate 17 Respiratory Effort Blood Pressure 121/83 H Blood Pressure Mean 95 Pulse Ox 98 Oxygen Delivery Method Room Air 03/25/23 00:15 Temperature Temperature Source Pulse Rate 74 Respiratory Rate 16 Respiratory Effort Blood Pressure 121/83 H Blood Pressure Mean 95 Pulse Ox 98 Oxygen Delivery Method Weight Weight: 88.5 kg Body Mass Index (BMI) 26.4 Physical Exam Const alert, oriented x3, no apparent distress, average body habitus, healthy appearing and well nourished Constitutional Narrative: Upper middle-aged, white male, sitting up in bed, appears comfortable, nontoxic, appears stated age General Appearance: cooperative HEENT normocephalic, head/scalp atraumatic, hearing grossly normal bilaterally and moist oral mucous membranes HEENT Narrative: Mallampati 2, rash Resp normal respiratory effort, no retractions, no use of accessory muscles and clear to auscultation bilaterally Auscultation: Negative for rales, rhonchi or wheezes Cardio regular rate, regular rhythm, S1 normal heart sound, S2 normal heart sound, no murmurs, no rub, no gallops and no clicks GI normal to inspection, nondistended, normoactive bowel sounds, soft to palpation and non-tender Extremity no clubbing, cyanosis or edema Extremity Narrative: Pedal pulses are 2+ bilaterally, radial pulses are 2+ bilaterally Neuro oriented x3, moves all extremities and no focal motor deficits Speech: speech normal Psych affect normal Psych Narrative: Very pleasant, eye contact is good, patient interacts normally Results Lab / Micro Data 03/24/23 21:20 03/24/23 21:20 Labs: Laboratory Results - last 24 hr 03/24/23 21:20: WBC 7.7, RBC 4.77, Hgb 15.0, Hct 44.3, MCV 92.9, MCH 31.4, MCHC 33.9, RDW Std Deviation 41.7, RDW Coeff of Lance 12.2, Plt Count 149 L, MPV 9.5, Immature Gran % (Auto) 0.400, Neut % (Auto) 49.9, Lymph % (Auto) 34.1, Appling % (Auto) 9.9, Eos % (Auto) 4.9, Baso % (Auto) 0.8, Absolute Neuts (auto) 3.9, Absolute Lymphs (auto) 2.64, Nucleated RBC % 0, D-Dimer Quant (PE/DVT) < 0.27 L, Sodium 138, Potassium 3.9, Chloride 107, Carbon Dioxide 24.0, Anion Gap 7, BUN 20 H, Creatinine 1.22, Estim Creat Clear Calc 68.91, Est GFR (MDRD) Af Amer 77, Est GFR (MDRD) Non-Af 64, BUN/Creatinine Ratio 16.4, Glucose 90, Calcium 8.8, Troponin I High Sens 38 03/24/23 23:30: Troponin I High Sens 55 Radiology Impression Chest X-Ray 03/24/23 21:20 IMPRESSION: Subtle right basilar pulmonary opacity may be atelectasis or pneumonia. Electronically Signed: Will Jacobson DO at 21:34 EST , Assessment & Plan Assessment/Plan (1) Chest pain: (2) Thoracic back pain: PLAN: Plan Chest pain -No associated symptoms however patient does have family history of premature coronary disease in his brother -Check lipids -Continue home statin dose for now -Start aspirin 81 mg daily -Cycle cardiac enzymes -Check CT of the chest to rule out dissection with symptoms radiating to his mid thoracic region -Check a.m. treadmill stress test Chronic thrombocytopenia -This appears to be chronic -Etiology is unclear -Recommend outpatient follow-up and work-up -Patient has not had a normal platelet count ever in our system since 2013 and current count appears to be stable when compared to previous History of paroxysmal atrial fibrillation -Continue home flecainide -Continue home metoprolol -[id number] score is low at 0 therefore not anticoagulated -Continue outpatient cardiology follow-up Hyperlipidemia -Continue on pravastatin History of nonischemic cardiomyopathy -This has resolved with his last EF being 60% on echo from 04/26/2014 -Continue outpatient cardiology follow-up DVT prophylaxis -Subcu Lovenocasey CODE STATUS -Full code Charges/Coding Visit Charges Inpatient E&M: 46051 Init Hosp L2
--- NOTE | 2023-03-25 00:38 | CT_ITS ---
EXAM: CT chest angiogram. HISTORY: Chest pain--r/o dissection TECHNIQUE: CTA Chest WO/W Contrast Injection A radiation dose optimization technique was used for this scan. Multiplanar reconstructions were obtained. 3-D postprocessing was performed. COMPARISON: None. LIMITATIONS: Motion artifact.. LUNGS: No confluent airspace disease. PULMONARY VESSELS: No pulmonary emboli identified. PLEURA: Normal. MEDIASTINUM: Normal. HEART: Normal. AORTA: No thoracic aortic aneurysm or dissection. UPPER ABDOMEN: Suspected cyst in the left hepatic lobe. BONES/SOFT TISSUES: No acute fracture. OTHER: None. CONCLUSION: Motion artifact. No thoracic aortic aneurysm or dissection. No evidence of pulmonary embolism. Electronically Signed: Kenton Lang MD at 1:46 EST , CT/CTA Chest W/WO Contrast IMPRESSION: undefined
--- NOTE | 2023-03-25 01:09 | EKG12_ITS ---
Test Reason : AM EKG Blood Pressure : / mmHG Vent. Rate : 062 BPM Atrial Rate : 062 BPM P-R Int : 212 ms QRS Dur : 090 ms QT Int : 408 ms P-R-T Axes : 068 075 082 degrees QTc Int : 414 ms Sinus rhythm with 1st degree A-V block Otherwise normal ECG When compared with ECG of 25-MAR-2023 01:20, MANUAL COMPARISON REQUIRED, DATA IS UNCONFIRMED Confirmed by MIKE KESSLER, REED ([id number]), visual effects editor MELECIO ORTEGA ([id number]) on 04/02/2023 1:04:07 PM Referred By: Confirmed By:REED MCKEON MD
[2023-03-25] MEDS: DiphenhydrAMINE 25 MG Capsule 50 MG PO ×2 (01:51→22:04)
[2023-03-25 03:53] LABS: Hematocrit 43.1 % (40-54); Hemoglobin 14.7 g/dL (13.0-16.5); Mean Corp Hgb Conc 34.1 g/dL (32-36); Mean Corpuscular Hgb 31.4 pg (27.0-32.0); Mean Corpuscular Volume 92.1 fL (80-94); Mean Platelet Vol. 9.5 fl (6.2-12.0); Platelet Count 132 K/mm3 (150-450); RBC Distribution Width CV 12.2 % (11.6-14.6); RBC Distribution Width SD 41.2 fl (35.1-43.9); Red Blood Count 4.68 M/mm3 (4.6-6.2); White Blood Count 6.6 K/mm3 (4.4-11.0)
[2023-03-25 04:29] LABS: Troponin-I HS 88 pg/mL (3.0-78.0)
[2023-03-25 04:34] LABS: ALB/GLOB Ratio 1.1 RATIO (0.9-2.4); AST(SGOT) 23 U/L (15-37); Alanine Aminotransfer ALT/SGPT 36 U/L (16-61); Albumin, Serum 3.5 g/dL (3.2-5.0); Alkaline Phosphatase 67 U/L (45-117); Anion Gap 6 (5-15); BUN 18 mg/dL (7-18); BUN/Creat Ratio 16.1 RATIO (10-20); Calcium,Total 8.5 mg/dL (8.5-10.1); Chloride 107 mmol/L (98-107); Cholesterol 154 mg/dL (200); Creatinine, Serum 1.12 mg/dL (0.70-1.30); EST Glomerular Filtration Rate 71 mL/min (>60); Est Glom Filt Rate - Afr Amer 85 mL/min (>60); Estimated Creatinine Clearance 75.06 ml/min; Globulin 3.1 g/dL (2.2-4.2); Glucose 84 mg/dL (74-106); High Density Lipoprotein 40 mg/dL; Potassium 3.8 mmol/L (3.5-5.1); Protein, Total 6.6 g/dL (6.4-8.2); Sodium Level 139 mmol/L (136-145); Triglycerides 202 mg/dL; Very Low Density Lipoprotein 40 mg/dL (5-40)
[2023-03-25] MEDS: Aspirin E.C. 81 MG Tablet PO (06:12)
--- NOTE | 2023-03-25 06:21 | PCM.HOSP.N ---
Hospitalist Note Initial cardiac enzyme on presentation was 38 with a repeat in the emergency department at 55 however his third troponin from this morning is up to 88. Given these findings and his symptoms I will go ahead and discontinue his stress test and have cardiology evaluate him for potential cardiac catheterization given his symptoms and rising troponin. Patient does have a family history of coronary disease with his brother being diagnosed at around 60 and having stents placed initially at that time. Patient reports that he has his most recent stents placed within the last year or so and he is 68 at this time.
[2023-03-25] MEDS: Flecainide 100 MG Tablet PO ×2 (08:48→22:00)
[2023-03-25] MEDS: Metoprolol Tartrate 25 MG Tablet PO ×2 (08:48→22:00)
[2023-03-25] MEDS: 0.9% Normal Saline (1000mL) 1,000 ML 75 ML IV (10:24)
[2023-03-25 11:06] LABS: Partial Thromboplast Time 25.4 Seconds (24.1-36.2)
--- NOTE | 2023-03-25 11:11 | CON.PCM.CA_ITS ---
<Statement entered by Darin Alexander MD - 03/25/23 17:19> Pt seen & evaluated w/SABINA. I personally interviewed & exam the pt. I was involved in all aspects of pt's orders, interpretation of results & treatment Assessment & Plan Assessment/Plan (1) NSTEMI (non-ST elevated myocardial infarction): (2) Chest pain: (3) Paroxysmal atrial fibrillation: (4) Pure hypercholesterolemia: PLAN: Plan * will repeat another troponin to continue to trend * Will start on Heparin and plan on heart cath for tomorrow * Will obtain echo today to check LV function * will continue with ASA and Atorvastatin * Will continue with his flecainide and metoprolol HPI Consult Data Date of Consult: 03/25/23 HPI Narrative HPI Narrative: JERAMY WOOD, is a 62 M who presented to [facility] ER last night for chest pain. He describes this as in his back and down his arms. It had been going on for 2 days. Yesterday it was a 02/18. It did resolve prior to coming to the ER. CTA was negative. He was admitted to PCU for possible stress in the morning. Troponins trended 38/55/88. With his elevated troponin we were consulted. Pt does have a hx ofnon CAD related cardiomyopathy, paroxysmal atrial fibrillation, and hyperlipidemia. He was just seen in the office a few weeks ago and did not have any complaints. Echocardiogram was last done in 2013 with a normal EF. Stress test done in 2019: normal [facility] Medical History (Updated 03/25/23 @ 11:31 by Yeni DURAN, PA) Acute embolism and thrombosis of deep vein of distal lower extremity Atrial fibrillation Cancer Cardiomyopathy in other diseases classified elsewhere DVT (deep venous thrombosis) Encounter for screening for COVID-19 Family history of hypertension GERD (gastroesophageal reflux disease) Hyperlipidemia Irregular heart beat Kidney stones NSTEMI (non-ST elevated myocardial infarction) Palpitations Paroxysmal atrial fibrillation Pure hypercholesterolemia URI (upper respiratory infection) Home Medications diphenhydramine HCl 50 mg capsule 50 mg PO QHS 12/26/21 [History Last Taken Unknown] pravastatin 10 mg tablet 10 mg PO QHS #90 tabs 02/05/23 [Rx Last Taken Unknown] flecainide 100 mg tablet 100 mg PO BID #180 tabs 03/18/23 [Rx Last Taken Unknown] metoprolol tartrate 25 mg tablet 25 mg PO BID #180 tabs 03/18/23 [Rx Last Taken Unknown] Allergy/AdvReac Type Severity Reaction Status Date / Time No Known Allergies Allergy Verified 03/24/23 20:27 Family History Father Martha Gehrig disease Mother Myocardial infarction CAD (coronary artery disease) Brother Myocardial infarction, Onset Age: 60 Hypertension Multiple sclerosis Other Family history of hypertension Surgical History History of appendectomy History of left heart catheterization (LHC) Presence of IVC filter Social History household members: spouse housing: house Smoking Status: Never smoker alcohol intake: current alcohol intake frequency: a few times a week Alcohol type: beer substance use type: does not use caffeine: Yes Type: coffee Number of servings: 2 what type of physical activity do you participate in: none seatbelt use: always do you feel safe at home: Yes ROS Constitutional Constitutional: Denies fatigue, headache(s) or lethargy Eyes Eyes: Denies acute decrease in peripheral vision, blurry vision or change in vision ENT HEENT: Denies dizziness, dry mouth, epistaxis, headache(s), tinnitus or vertigo Cardiovascular Cardiovascular: Reports chest pain; Denies claudication, dyspnea at rest, dyspnea on exertion, edema, irregular heart rhythm, lightheadedness, orthopnea, orthostatic symptoms, palpitations or pedal edema Respiratory/Chest Respiratory/Chest: Denies cough, dyspnea, dyspnea on exertion, tachypnea or wheezing Gastrointestinal Gastrointestinal: Denies abdominal pain, bloating, coffee ground emesis, diarrhea, heartburn, hematemesis, hematochezia, melena or nausea Genitourinary Genitourinary: Denies hematuria Musculoskeletal Musculoskeletal: Denies myalgias, numbness or tingling Neurologic Neurologic: Denies abnormal gait, abnormal speech, memory loss, paresthesias or weakness Physical Exam Const alert, oriented x3, no apparent distress and healthy appearing HEENT normocephalic, head/scalp atraumatic, hearing grossly normal bilaterally, external ears normal, external nose normal and moist oral mucous membranes Eyes PERRL, EOMs intact bilaterally, conjunctivae normal and no scleral icterus Neck no lymphadenopathy, supple and no JVD Cardio regular rate, regular rhythm, S1 normal heart sound, S2 normal heart sound, no murmurs, no rub, no gallops, no clicks, no JVD and peripheral pulses 2+ throughout GI normal to inspection, nondistended, normoactive bowel sounds, soft to palpation, non-tender and non-distended Extremity normal to inspection, normal capillary refill, no clubbing, cyanosis or edema and no pedal edema Neuro oriented x3, CN's II-XII intact bilaterally, moves all extremities and no focal motor deficits Psych cooperative and affect normal Risk Stratification Risk Stratification Applicable: Yes Age >/= 65: No >/= 3 CAD Risk Factors (HTN, HLD, DM, family hx of CAD, or current smoker): No Aspirin Use in the Past 7 Days: Yes Severe Angina (>/= episodes in 24 hours): Yes EKG ST Changes >/= 0.5mm: No Positive Cardiac Marker: Yes KHADRA Risk Stratification Score: 3 KHADRA % Risk: 13% Risk Charges/Coding Visit Charges Office Visits / Consults: 24001 IP Consult L4 Objective Data Vital Signs: Vital Signs Temp Pulse Resp BP Pulse Ox O2 Del Method 97.6 F L 69 16 108/73 92 Room Air 03/25/23 06:14 03/25/23 08:48 03/25/23 06:14 03/25/23 06:14 03/25/23 07:40 03/25/23 07:40 Oxygen Delivery Method Room Air Weight: 192 lb 0.362 oz Body Mass Index (BMI) 26.0 Intake & Output: Intake and Output for Last 24 Hours 03/23/23 03/24/23 03/25/23 23:59 23:59 23:59 Intake Total Balance Lab / Micro Data 03/25/23 03:34 03/25/23 03:34 Labs: Laboratory Results - last 24 hr 03/24/23 21:20: WBC 7.7, RBC 4.77, Hgb 15.0, Hct 44.3, MCV 92.9, MCH 31.4, MCHC 33.9, RDW Std Deviation 41.7, RDW Coeff of Lance 12.2, Plt Count 149 L, MPV 9.5, Immature Gran % (Auto) 0.400, Neut % (Auto) 49.9, Lymph % (Auto) 34.1, [place] % (Auto) 9.9, Eos % (Auto) 4.9, Baso % (Auto) 0.8, Absolute Neuts (auto) 3.9, Absolute Lymphs (auto) 2.64, Nucleated RBC % 0, D-Dimer Quant (PE/DVT) < 0.27 L, Sodium 138, Potassium 3.9, Chloride 107, Carbon Dioxide 24.0, Anion Gap 7, BUN 20 H, Creatinine 1.22, Estim Creat Clear Calc 68.91, Est GFR (MDRD) Af Amer 77, Est GFR (MDRD) Non-Af 64, BUN/Creatinine Ratio 16.4, Glucose 90, Calcium 8.8, Troponin I High Sens 38 03/24/23 23:30: Troponin I High Sens 55 03/25/23 03:34: WBC 6.6, RBC 4.68, Hgb 14.7, Hct 43.1, MCV 92.1, MCH 31.4, MCHC 34.1, RDW Std Deviation 41.2, RDW Coeff of Lance 12.2, Plt Count 132 L, MPV 9.5, Sodium 139, Potassium 3.8, Chloride 107, Carbon Dioxide 26.0, Anion Gap 6, BUN 18, Creatinine 1.12, Estim Creat Clear Calc 75.06, Est GFR (MDRD) Af Amer 85, Est GFR (MDRD) Non-Af 71, BUN/Creatinine Ratio 16.1, Glucose 84, Calcium 8.5, Total Bilirubin 0.50, AST 23, ALT 36, Alkaline Phosphatase 67, Troponin I High Sens 88 H, Total Protein 6.6, Albumin 3.5, Globulin 3.1, Albumin/Globulin Ratio 1.1, Triglycerides 202 H, Cholesterol 154, LDL Cholesterol 74, VLDL Cholesterol 40, HDL Cholesterol 40 03/25/23 10:33: APTT 25.4 Cardiology Labs/Tests 03/24/23 21:20: WBC 7.7, RBC 4.77, Hgb 15.0, Hct 44.3, MCV 92.9, MCH 31.4, MCHC 33.9, Plt Count 149 L, MPV 9.5, Immature Gran % (Auto) 0.400, Neut % (Auto) 49.9, Lymph % (Auto) 34.1, [place] % (Auto) 9.9, Eos % (Auto) 4.9, Baso % (Auto) 0.8, Absolute Neuts (auto) 3.9, Nucleated RBC % 0, D-Dimer Quant (PE/DVT) < 0.27 L, Sodium 138, Potassium 3.9, Chloride 107, Carbon Dioxide 24.0, Anion Gap 7, BUN 20 H, Creatinine 1.22, Est GFR (MDRD) Af Amer 77, Est GFR (MDRD) Non-Af 64, BUN/Creatinine Ratio 16.4, Glucose 90, Calcium 8.8 03/25/23 03:34: WBC 6.6, RBC 4.68, Hgb 14.7, Hct 43.1, MCV 92.1, MCH 31.4, MCHC 34.1, Plt Count 132 L, MPV 9.5, Sodium 139, Potassium 3.8, Chloride 107, Carbon Dioxide 26.0, Anion Gap 6, BUN 18, Creatinine 1.12, Est GFR (MDRD) Af Amer 85, Est GFR (MDRD) Non-Af 71, BUN/Creatinine Ratio 16.1, Glucose 84, Calcium 8.5, Total Bilirubin 0.50, Triglycerides 202 H, Cholesterol 154, LDL Cholesterol 74, VLDL Cholesterol 40, HDL Cholesterol 40 03/25/23 10:33: APTT 25.4 Rhythm: NSR Radiography Diagnostic Testing: Radiology Impression Chest X-Ray 03/24/23 21:20 IMPRESSION: Subtle right basilar pulmonary opacity may be atelectasis or pneumonia. Electronically Signed: Will Jacobson DO at 21:34 EST , Chest CTA 03/25/23 00:38 IMPRESSION: undefined
--- NOTE | 2023-03-25 11:14 | ECHOD_ITS ---
Reason For Study: NSTEMI Procedure This was a 2D Doppler, Color Flow transthoracic echocardiogram. Exam performed portable in patient room. Left Ventricle Normal left ventricle. The estimated ejection fraction is 50-55 %. Right Ventricle Normal right ventricle. Normal systolic function. Atria Normal left atrium. Normal right atrium. Mitral Valve The mitral valve is structurally normal. No prolapse or stenosis seen. Trivial mitral valve insufficiency. Tricuspid Valve Normal tricuspid valve. Mild (1+) eccentric tricuspid valve insufficiency. Aortic Valve Normal aortic valve. Pulmonic Valve The pulmonic valve is not well visualized. Great Vessels Normal aortic root. Pericardium/Pleural No pericardial effusion. MMode/2D Measurements & Calculations LVIDd: 5.0 cm IVSd: 1.1 cm Ao root diam: 3.8 cm LVIDs: 3.3 cm LVPWd: 1.0 cm LA dimension: 3.9 cm RVDd: 4.1 cm FS: 33.5 % LAV(MOD-bp): 61.5 ml LA A4 area: 20.6 cm2 RA A4 area: 16.8 cm2 LAV(MOD-bp) Indexed: 29.4 ml/m2 LAV(MOD-sp2): 60.0 ml LAV(MOD-sp4): 61.5 ml TAPSE: 1.5 cm Time Measurements MV dec time: 0.21 sec Doppler Measurements & Calculations MV E max joni: 49.5 cm/sec Lat Peak E' Joni: 10.2 cm/sec Med Peak E' Joni: 6.6 cm/sec MV A max joni: 57.4 cm/sec E/E' lat: 4.9 E/E' med: 7.5 MV E/A: 0.86 MV V2 max: 73.6 cm/sec MV P1/2t max joni: 56.2 cm/sec Ao V2 max: 94.4 cm/sec MV max P.2 mmHg MV P1/2t: 64.4 msec Ao max P.6 mmHg MV V2 mean: 39.4 cm/sec Ao V2 mean: 70.7 cm/sec MV mean P.72 mmHg MV dec slope: 255.7 cm/sec2 Ao mean P.3 mmHg MV V2 VTI: 17.5 cm MVA(P1/2t): 3.4 cm2 Ao V2 VTI: 20.4 cm LV V1 max: 85.5 cm/sec MR max joni: 516.2 cm/sec PA V2 max: 133.9 cm/sec LV V1 max P.9 mmHg MR max P.6 mmHg PA V2 mean: 100.9 cm/sec TR max joni: 272.0 cm/sec TR max P.6 mmHg ECHO/Echo Complete Interpretation Summary The estimated ejection fraction is 50-55 %. Normal LV systolic function No significant change in comparison to previous echocardiogram in 2013 Ordering Physician: Yeni Cha Referring Physician: Shan Desai Performed By: Malcolm Bailey RCS
[2023-03-25 11:25] LABS: Troponin-I HS 117 pg/mL (3.0-78.0)
[2023-03-25] MEDS: Heparin Injection (Vial) 5,000 UNIT/ML VIAL 4000 UNIT IV (12:03)
[2023-03-25] MEDS: HEPARIN/D5w 25,000 UNITS 25,000 UNITS/250 ML IV.SOLN. 10 UNITS CONT INF (12:05)
--- NOTE | 2023-03-25 15:29 | PCM.HOSP.N ---
Hospitalist Note 62-year-old male with history of paroxysmal atrial fibrillation and hypertension presented 03/24 due to chest pain. Troponins initially within normal limits however repeats continue to uptrend and cardiology was consulted and initial stress test was discontinued. Patient evaluated by cardiology, echocardiogram normal however troponins further up trended, patient started on heparin drip, continued on aspirin, statin, beta-asuncion as well as his home flecainide and plan for heart cath tomorrow
[2023-03-25] MEDS: Acetaminophen 325 MG Tablet 650 MG PO (17:43)
[2023-03-25 18:28] LABS: Partial Thromboplast Time 47.4 Seconds (24.1-36.2)
[2023-03-25] MEDS: Atorvastatin Calcium 80 MG Tablet PO (22:01)
[2023-03-26] VITALS (17 sets, daily range): BP systolic 98–121; BP diastolic 62–91; PULSE 62–75; RESP 14–20; TEMP 36.1–36.6; O2SAT 92–97
[2023-03-26 00:29] LABS: Partial Thromboplast Time 47.8 Seconds (24.1-36.2)
--- NOTE | 2023-03-26 05:55 | EKG12_ITS ---
Test Reason : Blood Pressure : / mmHG Vent. Rate : 074 BPM Atrial Rate : 074 BPM P-R Int : 214 ms QRS Dur : 090 ms QT Int : 384 ms P-R-T Axes : 072 074 067 degrees QTc Int : 426 ms Sinus rhythm with 1st degree A-V block Otherwise normal ECG When compared with ECG of 26-MAR-2023 13:35, MANUAL COMPARISON REQUIRED, DATA IS UNCONFIRMED Confirmed by MIKE KESSLER, REED ([id number]), general expeditor MELECIO ORTEGA ([id number]) on 04/02/2023 1:03:07 PM Referred By: Confirmed By:REED MCKEON MD
[2023-03-26 08:00] LABS: Anion Gap 5 (5-15); BUN 21 mg/dL (7-18); BUN/Creat Ratio 18.3 RATIO (10-20); Calcium,Total 8.6 mg/dL (8.5-10.1); Chloride 108 mmol/L (98-107); Creatinine, Serum 1.15 mg/dL (0.70-1.30); EST Glomerular Filtration Rate 68 mL/min (>60); Est Glom Filt Rate - Afr Amer 83 mL/min (>60); Glucose 90 mg/dL (74-106); Potassium 3.7 mmol/L (3.5-5.1); Sodium Level 139 mmol/L (136-145); Troponin-I HS 44 pg/mL (3.0-78.0)
[2023-03-26] MEDS: Metoprolol Tartrate 25 MG Tablet PO ×2 (08:01→21:21)
[2023-03-26] MEDS: Flecainide 100 MG Tablet PO ×2 (08:01→21:21)
[2023-03-26] MEDS: Aspirin E.C. 81 MG Tablet PO (08:01)
[2023-03-26 08:04] LABS: Absolute Lymphocyte Count 2.02 X10^3/uL (0.83-4.51); Absolute Neutrophil Count 2.1 X10^3/uL (2.0-7.7); Basophil# 0.03 X10^3/uL; Basophil% 0.6 % (0-1); Eosinophil# 0.25 X10^3/uL; Eosinophils% 5.2 % (0-5); Hematocrit 42.6 % (40-54); Hemoglobin 14.4 g/dL (13.0-16.5); Lymphocyte # 2.02 X10^3/ul (0.83-4.51); Lymphocyte % 41.8 % (19-41); Mean Corp Hgb Conc 33.8 g/dL (32-36); Mean Corpuscular Hgb 31.5 pg (27.0-32.0); Mean Corpuscular Volume 93.2 fL (80-94); Mean Platelet Vol. 9.9 fl (6.2-12.0); Monocyte# 0.41 X10^3/uL; Monocyte% 8.5 % (0-10); NRBC Flagged by Analyzer 0 % (0-5); Neutrophil % 43.5 % (47-70); Platelet Count 128 K/mm3 (150-450); RBC Distribution Width CV 12.5 % (11.6-14.6); Red Blood Count 4.57 M/mm3 (4.6-6.2); White Blood Count 4.8 K/mm3 (4.4-11.0)
[2023-03-26 08:22] LABS: Partial Thromboplast Time 56.9 Seconds (24.1-36.2)
--- NOTE | 2023-03-26 10:13 | PN.HOSP_ITS ---
Reason for Visit Reason for Visit: Diagnoses Pure hypercholesterolemia, unspecified (03/25/23) Non-ST elevation (NSTEMI) myocardial infarction (03/25/23) Paroxysmal atrial fibrillation (03/25/23) Pain in thoracic spine (03/25/23) Chest pain, unspecified (03/25/23) Objective Data Objective Data Vital Signs: Vital Signs Temp Pulse Resp BP Pulse Ox O2 Del Method 97.8 F 65 15 98/62 95 Room Air 03/26/23 07:58 03/26/23 08:01 03/26/23 07:58 03/26/23 07:58 03/26/23 07:58 03/26/23 07:58 Oxygen Delivery Method Room Air Weight: 87.1 kg Body Mass Index (BMI) 26.0 Intake & Output: Intake and Output for Last 24 Hours 03/24/23 03/25/23 03/26/23 23:59 23:59 23:59 Intake Total 1018.5 / 1378.5 430.03 / 430.03 Balance 1018.5 / 1378.5 430.03 / 430.03 Lab / Micro Data 03/26/23 07:00 03/26/23 07:00 Labs: Laboratory Results - last 24 hr 03/25/23 10:33: APTT 25.4, Troponin I High Sens 117 H 03/25/23 18:09: APTT 47.4 H 03/26/23 00:15: APTT 47.8 H 03/26/23 07:00: WBC 4.8, RBC 4.57 L, Hgb 14.4, Hct 42.6, MCV 93.2, MCH 31.5, MCHC 33.8, RDW Std Deviation 43.0, RDW Coeff of Lance 12.5, Plt Count 128 L, MPV 9.9, Immature Gran % (Auto) 0.400, Neut % (Auto) 43.5 L, Lymph % (Auto) 41.8 H, [place] % (Auto) 8.5, Eos % (Auto) 5.2 H, Baso % (Auto) 0.6, Absolute Neuts (auto) 2.1, Absolute Lymphs (auto) 2.02, Nucleated RBC % 0, APTT 56.9 H, Sodium 139, Potassium 3.7, Chloride 108 H, Carbon Dioxide 26.0, Anion Gap 5, BUN 21 H, Creatinine 1.15, Estim Creat Clear Calc 73.10, Est GFR (MDRD) Af Amer 83, Est GFR (MDRD) Non-Af 68, BUN/Creatinine Ratio 18.3, Glucose 90, Calcium 8.6, Troponin I High Sens 44 Radiography Diagnostic Testing: Radiology Impression Echocardiogram 03/25/23 11:14 Interpretation Summary The estimated ejection fraction is 50-55 %. Normal LV systolic function No significant change in comparison to previous echocardiogram in 2013 Ordering Physician: Yeni Cha Referring Physician: Shan Desai Performed By: Malcolm Bailey RCS Assessment & Plan Assessment/Plan (1) Chest pain: (2) Thoracic back pain: PLAN: Plan Chest pain -No associated symptoms however patient does have family history of premature coronary disease in his brother -Check lipids -Continue home statin dose for now -Start aspirin 81 mg daily -Cycle cardiac enzymes -Check CT of the chest to rule out dissection with symptoms radiating to his mid thoracic region -Check a.m. treadmill stress test Chronic thrombocytopenia -This appears to be chronic -Etiology is unclear -Recommend outpatient follow-up and work-up -Patient has not had a normal platelet count ever in our system since 2013 and current count appears to be stable when compared to previous History of paroxysmal atrial fibrillation -Continue home flecainide -Continue home metoprolol -[id number] score is low at 0 therefore not anticoagulated -Continue outpatient cardiology follow-up Hyperlipidemia -Continue on pravastatin History of nonischemic cardiomyopathy -This has resolved with his last EF being 60% on echo from 04/26/2014 -Continue outpatient cardiology follow-up DVT prophylaxis -Subcu Lovenox CODE STATUS -Full code
--- NOTE | 2023-03-26 10:13 | PCM.PN.HOSP ---
Reason for Visit Reason for Visit: Diagnoses Pure hypercholesterolemia, unspecified (03/25/23) Non-ST elevation (NSTEMI) myocardial infarction (03/25/23) Paroxysmal atrial fibrillation (03/25/23) Pain in thoracic spine (03/25/23) Chest pain, unspecified (03/25/23) Subjective Subjective Patient is a 62-year-old gentleman admitted with chest pain with elevated troponin Objective Data Objective Data Vital Signs: Vital Signs Temp Pulse Resp BP Pulse Ox O2 Del Method 97.8 F 65 15 98/62 95 Room Air 03/26/23 07:58 03/26/23 08:01 03/26/23 07:58 03/26/23 07:58 03/26/23 07:58 03/26/23 07:58 Oxygen Delivery Method Room Air Weight: 87.1 kg Body Mass Index (BMI) 26.0 Intake & Output: Intake and Output for Last 24 Hours 03/24/23 03/25/23 03/26/23 23:59 23:59 23:59 Intake Total 1018.5 / 1378.5 430.03 / 430.03 Balance 1018.5 / 1378.5 430.03 / 430.03 Lab / Micro Data 03/26/23 07:00 03/26/23 07:00 Labs: Laboratory Results - last 24 hr 03/25/23 10:33: APTT 25.4, Troponin I High Sens 117 H 03/25/23 18:09: APTT 47.4 H 03/26/23 00:15: APTT 47.8 H 03/26/23 07:00: WBC 4.8, RBC 4.57 L, Hgb 14.4, Hct 42.6, MCV 93.2, MCH 31.5, MCHC 33.8, RDW Std Deviation 43.0, RDW Coeff of Lance 12.5, Plt Count 128 L, MPV 9.9, Immature Gran % (Auto) 0.400, Neut % (Auto) 43.5 L, Lymph % (Auto) 41.8 H, [place] % (Auto) 8.5, Eos % (Auto) 5.2 H, Baso % (Auto) 0.6, Absolute Neuts (auto) 2.1, Absolute Lymphs (auto) 2.02, Nucleated RBC % 0, APTT 56.9 H, Sodium 139, Potassium 3.7, Chloride 108 H, Carbon Dioxide 26.0, Anion Gap 5, BUN 21 H, Creatinine 1.15, Estim Creat Clear Calc 73.10, Est GFR (MDRD) Af Amer 83, Est GFR (MDRD) Non-Af 68, BUN/Creatinine Ratio 18.3, Glucose 90, Calcium 8.6, Troponin I High Sens 44 Radiography Diagnostic Testing: Radiology Impression Echocardiogram 03/25/23 11:14 Interpretation Summary The estimated ejection fraction is 50-55 %. Normal LV systolic function No significant change in comparison to previous echocardiogram in 2013 Ordering Physician: Yeni Cha Referring Physician: Shan Desai Performed By: Malcolm Bailey RCS Physical Exam Narrative GENERAL: cooperative HEENT: Atraumatic; normocephalic EYES; Anicteric, Normal Conjunctiva NECK; supple, normal thyroid, RESPIRATORY: Diminished to auscultation CARDIOVASCULAR: Regular S1 S2, GI: soft, normoactive bowel sounds, : No Renal angle tenderness; EXTREMITIES: No edema, no clubbing, MUSCULOSKELETAL: no muscle wasting NEURO: Awake; no lateralizing signs. SKIN: No Rash PSYCH; Flat affect Assessment & Plan Assessment/Plan (1) Chest pain: PLAN: Plan Patient is a 62-year-old gentleman admitted with chest pain with elevated troponin 1. Acute non-STEMI ? Treatment initiated per protocol admitted to a monitored bed consult placed to cardiology plans for patient to undergo left heart catheterization. Echo demonstrated EF of 50 to 55% 2. Chronic thrombocytopenia Chronic we will continue with monitoring 3. Paroxysmal atrial fibrillation Did continue home meds including metoprolol and flecainide.[id number] score is low at 0 therefore not anticoagulated 4. Dyslipidemia ?Patient is on statin therapy, continued at home dose 5. History of nonischemic cardiomyopathy -This has resolved with his last EF being 60% on echo from 04/26/2014 -Continue outpatient cardiology follow-up 6. DVT prophylaxis -Subcu Lovenox Time spent in the patient's overall evaluation,decision-making process, review of diagnostic data, adjustment of management, discussion with other providers, nursing nursing and ancillary staff involved in patient's care documentation, 52 Minutes Charges/Coding Visit Charges Inpatient E&M: 40631 [facility] Hosp L3
--- NOTE | 2023-03-26 10:28 | CASEMGMT ---
Tertiary facilities in-network with patient's insurance: [facility], [facility], [facility], [facility], , [facility], [place], [facility], and [facility]
[2023-03-26] MEDS: HEPARIN/D5w 25,000 UNITS 25,000 UNITS/250 ML IV.SOLN. 12 UNITS CONT INF (10:44)
--- NOTE | 2023-03-26 11:29 | PN.CARD_ITS ---
<Statement entered by Darin Alexander MD - 03/26/23 17:18> Pt seen & evaluated w/SABINA. I personally interviewed & exam the pt. I was involved in all aspects of pt's orders, interpretation of results & treatment Subjective Subjective Pt seen and examined today. He will be undergoing heart cath today. No event overnight. Objective Data Vital Signs: Vital Signs Temp Pulse Resp BP Pulse Ox O2 Del Method 97.8 F 65 15 98/62 95 Room Air 03/26/23 07:58 03/26/23 08:01 03/26/23 07:58 03/26/23 07:58 03/26/23 07:58 03/26/23 07:58 Oxygen Delivery Method Room Air Weight: 192 lb 0.362 oz Body Mass Index (BMI) 26.0 Intake & Output: Intake and Output for Last 24 Hours 03/24/23 03/25/23 03/26/23 23:59 23:59 23:59 Intake Total 1018.5 / 1378.5 544.00 / 544.00 Balance 1018.5 / 1378.5 544.00 / 544.00 Lab / Micro Data 03/26/23 07:00 03/26/23 07:00 Labs: Laboratory Results - last 24 hr 03/25/23 18:09: APTT 47.4 H 03/26/23 00:15: APTT 47.8 H 03/26/23 07:00: WBC 4.8, RBC 4.57 L, Hgb 14.4, Hct 42.6, MCV 93.2, MCH 31.5, MCHC 33.8, RDW Std Deviation 43.0, RDW Coeff of Lance 12.5, Plt Count 128 L, MPV 9.9, Immature Gran % (Auto) 0.400, Neut % (Auto) 43.5 L, Lymph % (Auto) 41.8 H, [place] % (Auto) 8.5, Eos % (Auto) 5.2 H, Baso % (Auto) 0.6, Absolute Neuts (auto) 2.1, Absolute Lymphs (auto) 2.02, Nucleated RBC % 0, APTT 56.9 H, Sodium 139, Potassium 3.7, Chloride 108 H, Carbon Dioxide 26.0, Anion Gap 5, BUN 21 H, Creatinine 1.15, Estim Creat Clear Calc 73.10, Est GFR (MDRD) Af Amer 83, Est GFR (MDRD) Non-Af 68, BUN/Creatinine Ratio 18.3, Glucose 90, Calcium 8.6, Troponin I High Sens 44 Cardiology Labs/Tests 03/25/23 18:09: APTT 47.4 H 03/26/23 00:15: APTT 47.8 H 03/26/23 07:00: WBC 4.8, RBC 4.57 L, Hgb 14.4, Hct 42.6, MCV 93.2, MCH 31.5, MCHC 33.8, Plt Count 128 L, MPV 9.9, Immature Gran % (Auto) 0.400, Neut % (Auto) 43.5 L, Lymph % (Auto) 41.8 H, [place] % (Auto) 8.5, Eos % (Auto) 5.2 H, Baso % (Auto) 0.6, Absolute Neuts (auto) 2.1, Nucleated RBC % 0, APTT 56.9 H, Sodium 139, Potassium 3.7, Chloride 108 H, Carbon Dioxide 26.0, Anion Gap 5, BUN 21 H, Creatinine 1.15, Est GFR (MDRD) Af Amer 83, Est GFR (MDRD) Non-Af 68, BUN/C reatinine Ratio 18.3, Glucose 90, Calcium 8.6 EKG: SR with 1st AVB Radiography Diagnostic Testing: Radiology Impression Echocardiogram 03/25/23 11:14 Interpretation Summary The estimated ejection fraction is 50-55 %. Normal LV systolic function No significant change in comparison to previous echocardiogram in 2013 Ordering Physician: Yeni Cha Referring Physician: Shan Desai Performed By: Malcolm Bailey RCS Physical Exam Const alert, oriented x3, no apparent distress and healthy appearing HEENT normocephalic, head/scalp atraumatic, hearing grossly normal bilaterally, external ears normal, external nose normal and moist oral mucous membranes Eyes PERRL, EOMs intact bilaterally, conjunctivae normal and no scleral icterus Neck no lymphadenopathy, supple and no JVD Cardio regular rate, regular rhythm, S1 normal heart sound, S2 normal heart sound, no murmurs, no rub, no gallops, no clicks, no JVD and peripheral pulses 2+ throughout GI normal to inspection, nondistended, normoactive bowel sounds, soft to palpation, non-tender and non-distended Extremity normal to inspection, normal capillary refill, no clubbing, cyanosis or edema and no pedal edema Neuro oriented x3, CN's II-XII intact bilaterally, moves all extremities and no focal motor deficits Psych cooperative and affect normal Assessment & Plan Assessment/Plan (1) NSTEMI (non-ST elevated myocardial infarction): (2) Chest pain: (3) Paroxysmal atrial fibrillation: (4) Pure hypercholesterolemia: PLAN: Plan * Troponin trended 38/55/88/117/44, He will undergo a heart cath today. * Echo demonstrated and EF of 50-55%. * will continue with ASA and Atorvastatin. With is lower BP will not start CAN at this time. * Will continue with his flecainide and metoprolol. He has not had any recurrence on telemetry. With his lower platelets will not start on Eliquis. He does have a CHADVASC2 of 0. Charges/Coding Visit Charges Inpatient E&M: 77111 Subs Hosp L3
--- NOTE | 2023-03-26 12:42 | PCIREPORT_ITS ---
PCI Cardiac Cath Report PCI Report: Procedure performed; 1. Moderate sedation 2. Selective left coronary angiography 3. Selective right coronary angiography 4. Successful PCI of high-grade 90% stenosis of the mid LAD With predilatation using 2 x 12 mm balloon Followed by placement of drug-eluting stent 3 x 18 mm [place] frontier/drug-eluting stent Postdilated with 3.5 x 15 mm NC C balloon. And achievement of excellent result with reduction of stenosis to 0 and maintenance of KHADRA-3 flow postprocedure. Prior to procedure in September 10 flow was in the LAD. 5. Placement of TR band to close the right radial artery arteriotomy site Consent; risk and benefits of the procedure explained detail patient agreed to proceed informed consent obtained. Preprocedure diagnosis This is a 62-year-old patient presented to the ER complaining of symptoms of back pain and chest discomfort Patient had known history of paroxysmal atrial fibrillation Hypercholesteremia and had a history of CAD based on the clinical presentation patient underwent evaluation here in the hospital with cardiac markers which showed elevated high sensitive troponin. Renal function preserved had mild thrombocytopenia with a platelet initially around 132. Troponin high was 88. Diagnostic and interventional equipment used in the [employer] 1. 6 Green[place]ic sheath in the right radial artery 2. 5 Green[place]ic JL 3 5 diagnostic catheter 3. 5 Green[place]ic JR4 4. 6 [place]ic JL 3 5 guide catheter 5. 0.014 extra floppy run-through guide catheter 180 cm 6. 2 x 12 mm regular balloon 7. 3 x 18 mm [place] frontier drug-eluting stent 8. 3.5 x 50 mm NC balloon Medication used in the [employer]; Heparin ACT level acceptable Brilinta 180 mg was given in the [employer] Aspirin Procedure in detail; We will proceed under fluoroscopic guidance using 5 Green[place]ic JL 3.5 advanced [place] cannulated the left main multiple views of left Cholestin were obtained Following this catheter exchanged for 5 Green[place]ic JR4 and selective angiography of right coronary system were obtained Following this all angiographic views were studied. And the culprit lesion identified as a high-grade lesion involving the mid lateral LAD which is a large vessel. Therefore we will proceed with balloon 2 x 12 mm This is followed by placement of drug-eluting stent 3 x 80 mm, followed by postdilatation using 3.5 x 15 mm NC balloon and achieve an excellent result Coronary angiography findings; 1. Left main coronary artery is normal angiographically bifurcating into LAD and left circumflex 2. Left anterior descending artery is a large vessel which reaches all the way to the apex high-grade lesion is identified in the mid LAD which is around 90%. With successful PCI using a drug-eluting stent 3. Left circumflex had no significant atherosclerosis 4. RCA is a large dominant. This patient has paroxysmal atrial fibrillation he been on flecainide. Also noted he had episode of A-fib during this admission. Cardiac care plan recommendation and conclusion; 1. Patient to continue on DAPT Brilinta 90 mg twice daily in addition to low- dose aspirin 2. Continue rest of the cardiac medication. This patient has echocardiogram during this admission which showed LV function is preserved Also of note he had a prior cardiac catheterization which showed nonobstructive CAD in 2013. 3. Patient will be admitted to progressive care unit with the plan of follow-up as an outpatient with [facility] Patient will be scheduled for cardiac rehab program phase 1. To discuss plan of further management regarding the paroxysmal A-fib. With the consideration of starting on anticoagulation. Based on risk assessment. No complication in the [employer]. Darin Alexander MD,FACC,[facility]
--- NOTE | 2023-03-26 12:45 | EKG12_ITS ---
Test Reason : CP Admission Blood Pressure : / mmHG Vent. Rate : 057 BPM Atrial Rate : 057 BPM P-R Int : 218 ms QRS Dur : 090 ms QT Int : 422 ms P-R-T Axes : 068 073 073 degrees QTc Int : 410 ms Sinus bradycardia with 1st degree A-V block Otherwise normal ECG When compared with ECG of 24-MAR-2023 20:51, MANUAL COMPARISON REQUIRED, DATA IS UNCONFIRMED Confirmed by MIKE KESSLER, REED ([id number]), research editor MELECIO ORTEGA ([id number]) on 04/02/2023 1:06:28 PM Referred By: Delvis Confirmed By:REED MCKEON MD
[2023-03-26] MEDS: 0.9% Normal Saline (1000mL) 1,000 ML 75 ML IV (13:43)
--- NOTE | 2023-03-26 14:46 | CHAPLAIN ---
Type of Pastoral Visit _x__ Initial Visit ___ Follow-up Visit ___ On-call Visit ___ General Patient Visit ___ Spiritual Assessment ___ Family Conference ___ Bereavement ___ Rapid Response ___ Code Blue ___ Other (describe below) Pastoral Care Referral From ___ Patient _x__ Family ___ Nurse ___ Physician ___ Irrigation Installation Specialist ___ Machine Clothing Worker ___ Other (describe below) Sacrament/Intervention _x__ Active listening ___ Anointing ___ Orthodoxy ___ Bereavement ___ Communion ___ Ellen exploration ___ ___ Life review _x__ Prayer ___ Reconciliation ___ Sacrament of Sick _x__ Supportive presence ___ Wedding ___ Other (describe below) Pastoral Comments patient has been seen before and spouse meets this online merchant in the hallway to invite a visit; pt had a surprise heart cath and it went well; pt and spouse acknowledge that this could have been a life threatening adventure; pt welcomes prayer and presence for suppor; spouse is talkative and gives her views
--- NOTE | 2023-03-26 14:54 | CRPHASE1_ITS ---
Patient Communication Patient Information Former Patient:: Phase I and Phase II PHII Cardiac Rehab Discussed with Patient:: Yes Guide to Cardiac Rehab Given to Patient:: Yes Cardiac Rehab Facility Choice List Given to Patient:: Yes Communication to Cardiac Rehab Choice Program [facility] CR PHII:: Communication Given to CR Structured Cabling Technician:: Darin Alexander Phase II Cardiac Rehab:: Yes Sessions:: 36 sessions - 3 days/wk, 12 weeks Post Discharge Choice Letter Given to Patient:: Yes Medical/Surgical History Medical History Angina:: Yes CAD:: Yes Congestive Heart Failure: Valve Disease/Replacement:: No Asthma:: No Diabetes:: No Dyslipidemia:: Yes Arrhythmias:: Yes CVA/TIA: DVT:: Yes GERD:: Yes Cancer:: Yes Renal:: No Thyroid:: No Depression:: No Anxiety:: No Surgical History CABG: No ICD:: No Pacemaker:: No Cardiac Rehabilitation Info Program Information Cardiac Rehabilitation Program Information: Cardiac Rehab The cardiac rehab team at [facility] consists of highly skilled exercise physiologists, nurses, respiratory therapists and physicians working together with you. Our purpose is to help you have a full recovery and achieve the goals you set for yourself. Over the years many of our patients have returned to activities they assumed they would never do again! We can help restore your confidence and motivation to make lifestyle changes that can have a significant impact on your health and quality of life! We can help answer questions and concerns you may have about exercise, lifestyle, medications, diet, stress and anxiety which are common following a hospitalization. WE monitor ECG and vital signs during exercise and discuss your progress with you and report to your physician(s). Cardiac Rehab is proven to help reduce readmissions, improve functional capacity and lower recurrence of problems with your heart. Our Cardiac Rehab program is Certified by the [place] [employer]io-Vascular and Pulmonary Rehabilitation (AACVPR) and Accredited by the [place] [employer] through our [facility]. You can contact us at . We invite you to call us with your questions or to get started in our program. If you have other questions or concerns be sure to ask your physician/provider during your follow-up visit. WE look forward to seeing you!
--- NOTE | 2023-03-26 14:55 | CRPH1.INSTRU ---
General Education Discussed with Patient CAD and cardiac anatomy and function:: Patient communicates acknowledgment Explanation of diagnoses and procedures:: Patient communicates acknowledgment Sign/Symptoms of NC:: Patient communicates acknowledgment Antiplatelet therapy: Patient communicates acknowledgment Proper use of NTG-SL: Patient communicates acknowledgment Emergency procedures and activation of EMS: Patient communicates acknowledgment Compliance of all prescribed medications: Patient communicates acknowledgment Smoking Risk Factors Patient Nicotine/Smoking Risk Factors Are:: Non-smoker Recommendations Recommendations Include:: Second-hand smoke recommendation Response Code Nicotine/Smoking Response Code:: Patient communicates acknowledgment Dyslipidemia Recommendations Recommendations Include:: Lipid profile not available Response Code Dyslipidemia Response Code:: Patient communicates acknowledgment Overweight/Obesity Risk Factors Patient Overweight/Obesity Risk Factors Are:: BMI Normal [18-25 & < 65 years old] Response Code Overweight/Obesity:: Not instructed Hypertension Risk Factors Patient Hypertension Risk Factors Are:: No documented hx of HTN Response Code Hypertension:: Not instructed Heart Disease Risk Factors Patient Heart Disease Risk Factors Are:: Family history of heart disease < 65 years old Recommendations Recommendations Include:: Educated family members of their risk and Educated family members of importance of prevention of heart disease Response Code Heart Disease Response Code:: Patient communicates acknowledgment Diabetes Risk Factors Patient Diabetes Risk Factors Are:: No documented hx of diabetes Response Code Diabetes:: Not instructed Metabolic Syndrome Recommendations Recommendations Include:: Does not meet criteria Response Code Metabolic Syndrome Response Code:: Not instructed Sedentary Recommendations Recommendations Include:: Monitored Outpatient Cardiac Rehab Response Code Sedentary Response Code:: Patient communicates acknowledgment Stress Recommendations Recommendations Include:: Identification of stressors, and assessment of coping skills and Stress management techniques Response Code Stress Response Code:: Patient communicates acknowledgment
--- NOTE | 2023-03-26 15:30 | CASEMGMT ---
SACHIN BRIZUELA Assessment: RN GELACIO to room to meet with patient for initial transition planning/care coordination assessment. RN GELACIO introduced self and role at [facility].? Pt voices understanding and consents to assessment at this time.? Pt resting in bed in no distress at this time.? @ bedside. Pt is A/O at this time and answers all questions appropriately.?? Care providers, pharmacy, and demographics verified/updated at this time. PCP:Lloyd Specialists:Evita, uro; WHG/cardio Preferred Pharmacy: [facility] Retail Insurance: [employer] Prescription Benefit: yes. Pt to discharge home on Brilinta. Discussed 30-day savings card and made aware [facility] Retail pharmacy will apply. Made aware to discuss possible more affordable options if refills are not affordable. Questions answered and they voice understanding. LW/HPOA: Pt denies having a LW/HCPOA and would like to complete. SW, Kamille, made aware. Pt and made aware if SW unable to complete while he is in the hospital this can be done as an OP. They voice understanding. LNOK: Glneys Garcia, . 2 dtrs: Mk. Living Arrangements: Pt lives with in a single story house with a couple of steps to enter. Pt reports he is I in ADL's and denies concerns at home. Transportation: Pt drives self and denies concerns with transportation. also drives. DME/HHC/SNF: Pt denies having any DME in the home. He states he has had previous HHC but does not know which agency was set up, denies SNF stays. Pt wishes to return home and states has no concerns with going home at time of discharge.CM to follow for any further discharge planning/needs.? Pt and voice no further concerns/needs at this time.? Advised them to ask for CM if any further questions/concerns/needs arise.? They voice understanding. PLAN: ?Home Annemarie VEGA RN, CM
[2023-03-26] MEDS: Atorvastatin Calcium 80 MG Tablet PO (21:22)
[2023-03-26] MEDS: DiphenhydrAMINE 25 MG Capsule 50 MG PO (21:22)
[2023-03-27 03:00] VITALS: BP 102/70; PULSE 65; RESP 14; TEMP 36.6; O2SAT 95
[2023-03-27 07:44] LABS: Hematocrit 43.8 % (40-54); Hemoglobin 14.9 g/dL (13.0-16.5); Mean Corpuscular Hgb 31.5 pg (27.0-32.0); Mean Corpuscular Volume 92.6 fL (80-94); Mean Platelet Vol. 9.2 fl (6.2-12.0); Platelet Count 138 K/mm3 (150-450); RBC Distribution Width CV 12.4 % (11.6-14.6); RBC Distribution Width SD 42.2 fl (35.1-43.9); Red Blood Count 4.73 M/mm3 (4.6-6.2); White Blood Count 6.5 K/mm3 (4.4-11.0)
--- NOTE | 2023-03-27 08:04 | PCM.PN.HOSP ---
Reason for Visit Reason for Visit: Diagnoses Pure hypercholesterolemia, unspecified (03/25/23) Non-ST elevation (NSTEMI) myocardial infarction (03/25/23) Paroxysmal atrial fibrillation (03/25/23) Pain in thoracic spine (03/25/23) Chest pain, unspecified (03/25/23) Subjective Subjective Patient underwent left heart catheterization with successful PCI of high-grade 90% stenosis of the mid LAD with a JUAN LUIS. Plan is for patient to be assessed for discharge Objective Data Objective Data Vital Signs: Vital Signs Temp Pulse Resp BP Pulse Ox O2 Del Method 98 F 65 14 102/70 95 Room Air 03/27/23 03:00 03/27/23 03:00 03/27/23 03:00 03/27/23 03:00 03/27/23 03:00 03/27/23 03:00 Oxygen Delivery Method Room Air Weight: 87.1 kg Body Mass Index (BMI) 26.0 Intake & Output: Intake and Output for Last 24 Hours 03/25/23 03/26/23 03/27/23 23:59 23:59 23:59 Intake Total 1018.5 / 1378.5 552.20 / 792.20 1480 / 1480 Balance 1018.5 / 1378.5 552.20 / 792.20 1480 / 1480 Lab / Micro Data 03/27/23 07:34 03/27/23 07:34 Labs: Laboratory Results - last 24 hr 03/26/23 07:00: WBC 4.8, RBC 4.57 L, Hgb 14.4, Hct 42.6, MCV 93.2, MCH 31.5, MCHC 33.8, RDW Std Deviation 43.0, RDW Coeff of Lance 12.5, Plt Count 128 L, MPV 9.9, Immature Gran % (Auto) 0.400, Neut % (Auto) 43.5 L, Lymph % (Auto) 41.8 H, Baldwin % (Auto) 8.5, Eos % (Auto) 5.2 H, Baso % (Auto) 0.6, Absolute Neuts (auto) 2.1, Absolute Lymphs (auto) 2.02, Nucleated RBC % 0, APTT 56.9 H 03/27/23 07:34: WBC 6.5, RBC 4.73, Hgb 14.9, Hct 43.8, MCV 92.6, MCH 31.5, MCHC 34.0, RDW Std Deviation 42.2, RDW Coeff of Lance 12.4, Plt Count 138 L, MPV 9.2 Physical Exam Narrative GENERAL: cooperative HEENT: Atraumatic; normocephalic EYES; Anicteric, Normal Conjunctiva NECK; supple, normal thyroid, RESPIRATORY: Diminished to auscultation CARDIOVASCULAR: Regular S1 S2, GI: soft, normoactive bowel sounds, : No Renal angle tenderness; EXTREMITIES: No edema, no clubbing, MUSCULOSKELETAL: no muscle wasting NEURO: Awake; no lateralizing signs. SKIN: No Rash PSYCH; Flat affect Assessment & Plan Assessment/Plan (1) Chest pain: QUALIFIERS: Chest pain type: chest pain due to myocardial ischemia Ischemic chest pain type: unstable angina pectoris Qualified Code(s): I20.0 - Unstable angina PLAN: Plan Patient is a 62-year-old gentleman admitted with chest pain with elevated troponin 1. Acute non-STEMI ? Treatment initiated per protocol admitted to a monitored bed consult placed to cardiology plans for patient to undergo left heart catheterization. Echo demonstrated EF of 50 to 55% 03/27/2023;Patient underwent left heart catheterization with successful PCI of high-grade 90% stenosis of the mid LAD with a JUAN LUIS. Plan is for patient to be assessed for discharge 2. Chronic thrombocytopenia Chronic we will continue with monitoring 3. Paroxysmal atrial fibrillation Did continue home meds including metoprolol and flecainide.[id number] score is low at 0 therefore not anticoagulated 4. Dyslipidemia ?Patient is on statin therapy, continued at home dose 5. History of nonischemic cardiomyopathy -This has resolved with his last EF being 60% on echo from 04/26/2014 -Continue outpatient cardiology follow-up 6. DVT prophylaxis -Subcu Lovenox Time spent in the patient's overall evaluation,decision-making process, review of diagnostic data, adjustment of management, discussion with other providers, nursing nursing and ancillary staff involved in patient's care documentation, 40 Minutes Charges/Coding Visit Charges Inpatient E&M: 04457 Subs Hosp L2
[2023-03-27 08:35] LABS: ALB/GLOB Ratio 1.1 RATIO (0.9-2.4); AST(SGOT) 23 U/L (15-37); Alanine Aminotransfer ALT/SGPT 31 U/L (16-61); Albumin, Serum 3.5 g/dL (3.2-5.0); Alkaline Phosphatase 68 U/L (45-117); Anion Gap 5 (5-15); BUN 16 mg/dL (7-18); BUN/Creat Ratio 14.3 RATIO (10-20); Calcium,Total 8.7 mg/dL (8.5-10.1); Chloride 110 mmol/L (98-107); Creatinine, Serum 1.12 mg/dL (0.70-1.30); EST Glomerular Filtration Rate 71 mL/min (>60); Est Glom Filt Rate - Afr Amer 85 mL/min (>60); Estimated Creatinine Clearance 75.06 ml/min; Globulin 3.1 g/dL (2.2-4.2); Glucose 92 mg/dL (74-106); Potassium 3.9 mmol/L (3.5-5.1); Protein, Total 6.6 g/dL (6.4-8.2); Sodium Level 139 mmol/L (136-145)
[2023-03-27 09:06] VITALS: PULSE 98
[2023-03-27] MEDS: Metoprolol Tartrate 25 MG Tablet PO (09:06)
[2023-03-27] MEDS: Aspirin E.C. 81 MG Tablet PO (09:08)
[2023-03-27] MEDS: Flecainide 100 MG Tablet PO (09:08)
[2023-03-27 09:16] VITALS: BP 124/83; PULSE 72; RESP 15; TEMP 36.6; O2SAT 97
[2023-03-27 10:50] LABS: ACT Activated Clotting Time 287 sec (74-137)
--- NOTE | 2023-03-27 11:36 | DS.PCM_ITS ---
Providers Date of Admission: 03/25/23 Date of Discharge: 03/27/23 Primary Care Physician: Dr. Shan Desai MD Consultations 03/25/23 06:20 Consult: Cardiology Routine Consulting Provider: Darin Alexander Reason for Consult: CP with Troponin rise EMERGENT Consult: No MD Notified: Yes Date Notified: 03/25/23 Time Notified: 06:20 Method of Notification: Text Reason For Visit: CHEST PAIN Diagnosis Discharge Diagnosis (1) Chest pain: Status: Acute Code(s): R07.9 - Chest pain, unspecified Qualifiers: Chest pain type: chest pain due to myocardial ischemia Ischemic chest pain type: unstable angina pectoris Qualified Code(s): I20.0 - Unstable angina Plan Patient is a 62-year-old gentleman admitted with chest pain with elevated troponin 1. Acute non-STEMI ? Treatment initiated per protocol admitted to a monitored bed consult placed to cardiology plans for patient to undergo left heart catheterization. Echo de monstrated EF of 50 to 55% 03/27/2023;Patient underwent left heart catheterization with successful PCI of high-grade 90% stenosis of the mid LAD with a JUAN LUIS. Plan is for patient to be assessed for discharge 2. Chronic thrombocytopenia Chronic we will continue with monitoring 3. Paroxysmal atrial fibrillation Did continue home meds including metoprolol and flecainide.[id number] score is low at 0 therefore not anticoagulated 4. Dyslipidemia ?Patient is on statin therapy, continued at home dose 5. History of nonischemic cardiomyopathy -This has resolved with his last EF being 60% on echo from 04/26/2014 -Continue outpatient cardiology follow-up 6. DVT prophylaxis -Subcu [facility] Time spent in the patient's overall evaluation,decision-making process, review of diagnostic data, adjustment of management, discussion with other providers, nursing nursing and ancillary staff involved in patient's care documentation, 40 Minutes Medications at Discharge Home Medications diphenhydramine HCl 50 mg capsule 50 mg PO QHS 12/26/21 flecainide 100 mg tablet 100 mg PO BID #180 tabs 03/18/23 metoprolol tartrate 25 mg tablet 25 mg PO BID #180 tabs 03/18/23 aspirin 81 mg tablet,delayed release 81 mg PO BREAKFAST #90 tabs 03/27/23 atorvastatin 80 mg tablet 80 mg PO QHS #90 tabs 03/27/23 ticagrelor 90 mg tablet (Brilinta) 90 mg PO BID 90 days #180 tabs 03/27/23 Hospital Course Procedures 2-D Echocardiogram and Cardiac catheterization Summary of Care Provided Minutes Spent on Discharge: 40 Physical Exam Narrative GENERAL: cooperative HEENT: Atraumatic; normocephalic EYES; Anicteric, Normal Conjunctiva NECK; supple, normal thyroid, RESPIRATORY: Diminished to auscultation CARDIOVASCULAR: Regular S1 S2, GI: soft, normoactive bowel sounds, : No Renal angle tenderness; EXTREMITIES: No edema, no clubbing, MUSCULOSKELETAL: no muscle wasting NEURO: Awake; no lateralizing signs. SKIN: No Rash PSYCH; Flat affect Weight / BMI Weight Weight: 87.1 kg Body Mass Index (BMI) 26.0 ABG / Lab / Microbiology Data 03/27/23 07:34 03/27/23 07:34 Laboratory: Laboratory Results - last 24 hr 03/26/23 12:34: Activated Clotting Time 287 H 03/27/23 07:34: WBC 6.5, RBC 4.73, Hgb 14.9, Hct 43.8, MCV 92.6, MCH 31.5, MCHC 34.0, RDW Std Deviation 42.2, RDW Coeff of Lance 12.4, Plt Count 138 L, MPV 9.2, Sodium 139, Potassium 3.9, Chloride 110 H, Carbon Dioxide 24.0, Anion Gap 5, BUN 16, Creatinine 1.12, Estim Creat Clear Calc 75.06, Est GFR (MDRD) Af Amer 85, Est GFR (MDRD) Non-Af 71, BUN/Creatinine Ratio 14.3, Glucose 92, Calcium 8.7, Total Bilirubin 0.60, AST 23, ALT 31, Alkaline Phosphatase 68, Total Protein 6.6, Albumin 3.5, Globulin 3.1, Albumin/Globulin Ratio 1.1 D/C Instructions Discharge Diet: Low fat / Low cholesterol Discharge Activity: Return to Normal Activity Call your doctor if you observe: Fever of 101 or Higher, Shortness of breath, Fainting spells and Chest pain Meaningful Use Info Meaningful Use Diagnoses (Choose all that apply): AMI AMI/Post PCI/Angioplasty Aspirin given w/in 24hrs of arrival?: Yes ASA at discharge?: Yes Antiplatelet Therapy at Discharge:: Yes Statins at discharge?: Yes Sandro/ARB at discharge?: No Reason Sandro/ARB not ordered:: Not indicated Beta Kell at discharge?: Yes Done w/ Acute OH measure.: Yes Documented LVEF (%): 55 Discharge Plan Admission Admit Date/Time: 03/25/23 17:11 Attending Provider: Esteban Taylor Primary Care Provider: Shan Desai Consulting Providers: Mary Ellen Edmondson; Darin Alexander; Claudia Johnson Instructions Patient Instructions: ED Chest Pain, Uncertain Cause, ED Pain, Acute, Uncertain Cause Discharge Orders/Prescriptions Prescriptions: New Brilinta 90 mg Tablet 90 mg PO BID 90 Days Qty: 180 0RF atorvastatin 80 mg Tablet 80 mg PO QHS Qty: 90 0RF aspirin 81 mg Tablet,Delayed Release (Dr/Ec) 81 mg PO BREAKFAST Qty: 90 0RF Continued diphenhydramine HCl 50 mg capsule 50 mg PO QHS metoprolol tartrate 25 mg tablet 25 mg PO BID Qty: 180 3RF flecainide 100 mg tablet 100 mg PO BID Qty: 180 3RF Discontinued pravastatin 10 mg tablet 10 mg PO QHS Qty: 90 3RF Referrals / Follow Up: Shan Desai MD [Primary Care Provider] - Within 2 Weeks Markus Mayorga NP, MACHINE LACER-C [Med Staff - Adv Practice Prof] - 04/22/23 10:00 am Disposition Disposition (needs filled in before D/C Order can be placed): Home, Self Care Charges/Coding Visit Charges Inpatient E&M: 56204 Disch Hosp >30min
[2023-03-27 12:07] VITALS: BP 117/87; PULSE 65; RESP 15; O2SAT 96
--- NOTE | 2023-03-27 12:20 | PHA.DC_ITS ---
Pharmacy [facility] Pharmacy Service has performed discharge medication reconciliation and counseling for this patient. The patient was counseled on the following discharge medications and changes in medications for homegoing were reviewed. 1. ASPIRIN 2. BRILINTA 3. LIPITOR The Reason for Use, instructions for use, and potential side effects were reviewed for all new medications. The patient's questions regarding all of their medications were answered. The patient was able to verbally demonstrate an understanding of their discharge medications. The patient's discharge medication list was reviewed for discrepancies and discrepancies were resolved. Medications at Discharge Home Medications diphenhydramine HCl 50 mg capsule 50 mg PO QHS 12/26/21 flecainide 100 mg tablet 100 mg PO BID #180 tabs 03/18/23 metoprolol tartrate 25 mg tablet 25 mg PO BID #180 tabs 03/18/23 aspirin 81 mg tablet,delayed release 81 mg PO BREAKFAST #90 tabs 03/27/23 atorvastatin 80 mg tablet 80 mg PO QHS #90 tabs 03/27/23 ticagrelor 90 mg tablet (Brilinta) 90 mg PO BID 90 days #180 tabs 03/27/23
--- NOTE | 2023-03-27 12:28 | CASEMGMT ---
SW assisted patient in completing Healthcare Power of Pilot (HCPOA) and Healthcare Living Will. Copies were made and give to patient along with originals. SW also placed a copy of each in patient's chart. Patient named his Glenys as his HCPOA. Kamille Daniels [employer]
--- NOTE | 2023-03-27 12:39 | PN.CARD_ITS ---
<Statement entered by Darin Alexander MD - 03/27/23 16:13> Pt seen & evaluated w/SABINA. I personally interviewed & exam the pt. I was involved in all aspects of pt's orders, interpretation of results & treatment Subjective Subjective Pt seen and examined. He does not have any CP/SOB. No events overnight. Objective Data Vital Signs: Vital Signs Temp Pulse Resp BP Pulse Ox O2 Del Method 98 F 65 15 117/87 H 96 Room Air 03/27/23 09:16 03/27/23 12:07 03/27/23 12:07 03/27/23 12:07 03/27/23 12:07 03/27/23 12:07 Oxygen Delivery Method Room Air Weight: 192 lb 0.362 oz Body Mass Index (BMI) 26.0 Intake & Output: Intake and Output for Last 24 Hours 03/25/23 03/26/23 03/27/23 23:59 23:59 23:59 Intake Total 1018.5 / 1378.5 552.20 / 792.20 1480 / 1480 Balance 1018.5 / 1378.5 552.20 / 792.20 1480 / 1480 Lab / Micro Data 03/27/23 07:34 03/27/23 07:34 Labs: Laboratory Results - last 24 hr 03/26/23 12:34: Activated Clotting Time 287 H 03/27/23 07:34: WBC 6.5, RBC 4.73, Hgb 14.9, Hct 43.8, MCV 92.6, MCH 31.5, MCHC 34.0, RDW Std Deviation 42.2, RDW Coeff of Lance 12.4, Plt Count 138 L, MPV 9.2, Sodium 139, Potassium 3.9, Chloride 110 H, Carbon Dioxide 24.0, Anion Gap 5, BUN 16, Creatinine 1.12, Estim Creat Clear Calc 75.06, Est GFR (MDRD) Af Amer 85, Est GFR (MDRD) Non-Af 71, BUN/Creatinine Ratio 14.3, Glucose 92, Calcium 8.7, Total Bilirubin 0.60, AST 23, ALT 31, Alkaline Phosphatase 68, Total Protein 6.6, Albumin 3.5, Globulin 3.1, Albumin/Globulin Ratio 1.1 Cardiology Labs/Tests 03/27/23 07:34: WBC 6.5, RBC 4.73, Hgb 14.9, Hct 43.8, MCV 92.6, MCH 31.5, MCHC 34.0, Plt Count 138 L, MPV 9.2, Sodium 139, Potassium 3.9, Chloride 110 H, Carbon Dioxide 24.0, Anion Gap 5, BUN 16, Creatinine 1.12, Est GFR (MDRD) Af Amer 85, Est GFR (MDRD) Non-Af 71, BUN/Creatinine Ratio 14.3, Glucose 92, Calcium 8.7, Total Bilirubin 0.60 Rhythm: SR with occas PVC Physical Exam Const alert, oriented x3, no apparent distress and healthy appearing HEENT normocephalic, head/scalp atraumatic, hearing grossly normal bilaterally, external ears normal, external nose normal and moist oral mucous membranes Eyes PERRL, EOMs intact bilaterally, conjunctivae normal and no scleral icterus Neck no lymphadenopathy, supple and no JVD Cardio regular rate, regular rhythm, S1 normal heart sound, S2 normal heart sound, no murmurs, no rub, no gallops, no clicks, no JVD and peripheral pulses 2+ throughout GI normal to inspection, nondistended, normoactive bowel sounds, soft to palpation, non-tender and non-distended Extremity normal to inspection, normal capillary refill, no clubbing, cyanosis or edema and no pedal edema Extremity Narrative: Right radial pulse good, small area of ecchymosis noted. Neuro oriented x3, CN's II-XII intact bilaterally, moves all extremities and no focal motor deficits Psych cooperative and affect normal Assessment & Plan Assessment/Plan (1) NSTEMI (non-ST elevated myocardial infarction): (2) Chest pain: QUALIFIERS: Chest pain type: chest pain due to myocardial ischemia Ischemic chest pain type: unstable angina pectoris Qualified Code(s): I20.0 - Unstable angina (3) Paroxysmal atrial fibrillation: (4) Pure hypercholesterolemia: PLAN: Plan * Troponin trended 38/55/88/117/44, He did undergo a heart cath yesterday. Heart cath demonstrated: 1. Left main coronary artery is normal angiographically bifurcating into LAD and left circumflex 2. Left anterior descending artery is a large vessel which reaches all the way to the apex high-grade lesion is identified in the mid LAD which is around 90%. With successful PCI using a drug-eluting stent 3. Left circumflex had no significant atherosclerosis 4. RCA is a large dominant. * He will continue with Brilinta, Atorvastatin, ASA, Metoprolol. Did not start an CAN d/t low BP readings. He will continue with is Brilinta for 12 months. He will be referred to cardiac rehab. * Echo demonstrated and EF of 50-55%. * Will continue with his flecainide and metoprolol. He has not had any recurrence on telemetry. He does have a CHADVASC2 of 1. He will continue with is ASA. Feel his low platelets could be related to his penitentiary use of flecainide/ Recommend that he discuss this with his PCP * Will f/u in the office. Charges/Coding Visit Charges Inpatient E&M: 42999 [facility] Hosp L3
== END 2023-03-27 12:52 | disposition home or self-care (01) | DRG 322 ==
LOC: ED 03-25 00:16 → PCU 03-25 00:26
PROVIDERS: Internal Medicine; Internal Medicine Interventional Cardiology; Physician Assistant Medical; Admitting Provider Internal Medicine; Emergency Provider Emergency Medicine; PCP Family Medicine; Visit Provider Internal Medicine
DX: I21.4 Non-ST elevation (NSTEMI) myocardial infarction (principal); I42.8 Other cardiomyopathies; D69.6 Thrombocytopenia, unspecified; C61 Malignant neoplasm of prostate; I48.0 Paroxysmal atrial fibrillation; I25.110 Atherosclerotic heart disease of native coronary artery with unstable angina pectoris; I10 Essential (primary) hypertension; E78.00 Pure hypercholesterolemia, unspecified; M54.6 Pain in thoracic spine; Z79.899 Other long term (current) drug therapy
CPT/HCPCS: 36415; 71045; 71275; 80048; 80053; 80061; 84153; 84484; 85025; 85027; 85347; 85379; 85730; 92928; 93005; 93306; 93454; 94668; 99152; 99153; 99284; 99406; J7030; J7040; Q9967; A4216; C1725; C1769; C1874; C1887; C1894; C9600

== ENCOUNTER → 2023-06-23 | Outpatient (CLI) | payer MEDICARE, SELFPAY ==
--- NOTE | 2023-06-23 09:45 | PCM.CR.HP2 ---
CR - History & Physical General Arrival date:: 06/23/23 Arrival time:: 09:45 Date of Referral:: 06/09/23 Date of CR Evaluation:: 06/23/23 Referring Physician: Dr. Johnny Cantu Primary Diagnosis: PCI with stent History of Present Cardiac Event Onset Date PTCA or coronary stenting:: Yes Vessel: PCI to LAD Medications Ambulatory Orders Medication Instructions Recorded diphenhydramine HCl 50 mg capsule 50 mg PO QHS 12/26/21 metoprolol tartrate 25 mg tablet 25 mg PO BID #180 tabs 03/18/23 aspirin 81 mg tablet,delayed 81 mg PO BREAKFAST #90 tabs 03/27/23 release atorvastatin 80 mg tablet 80 mg PO QHS #90 tabs 04/22/23 ticagrelor 90 mg tablet (Brilinta) 90 mg PO BID 90 days #180 tabs 04/22/23 Allergies Allergies No Known Allergies Allergy (Verified 04/22/23 10:03) Sleep Disorder Evaluation Hx of Sleep Apnea: No Do you snore loudly (louder than talking or can be heard through closed doors)?: No Do you often feel tired/ fatigued/ sleepy during daytime?: No Has anyone observed you stop breathing during sleep?: No History of Hypertension (for STOP score): No STOP Results: Negative Advanced Directives Advanced Directives Power of Agricultural Sales Representative: No Living Will: No Advance Directives Information Provided: No Advance Directives on File: No DNR Order?:: No Past Medical History Covid-19 Screening Physicial Symptoms Other Clinical Concerns Exposure Risk Pertinent Comorbidities Has a serious heart condition:: Yes Past Medical Illness Medical History Acute embolism and thrombosis of deep vein of distal lower extremity Arteriosclerotic coronary artery disease Atrial fibrillation Cancer Cardiomyopathy in other diseases classified elsewhere DVT (deep venous thrombosis) Encounter for screening for COVID-19 Family history of hypertension GERD (gastroesophageal reflux disease) Hyperlipidemia Irregular heart beat Kidney stones NSTEMI (non-ST elevated myocardial infarction) Palpitations Paroxysmal atrial fibrillation Pure hypercholesterolemia URI (upper respiratory infection) Past Surgical History Surgical History History of appendectomy History of left heart catheterization (LHC) Presence of IVC filter Stented coronary artery (03/26/23) Surgical History: - (Multiple abdominal surgeries, history of abdominal compartment syndrome) Family History Summary Family History Father Martha Gehrig disease Mother Myocardial infarction CAD (coronary artery disease) Brother Myocardial infarction, Onset Age: 60 Hypertension Multiple sclerosis Other Family history of hypertension Social History Smoking History Smoking Status: Never smoker Alcohol Use Alcohol Usage: Yes Occupation Occupation (List type of work in comments):: Retired Hobbies, Recreation, Social Activities Hobbies: Other (coaches, babysits) Recreational Activities: I am able to engage in all my recreational activities Social Environment Status Marital Status: Current Living Arrangements Living Environment:: Spouse Children How many children do you have?: 2 Do any of your children live nearby?: Yes Safety Do you feel safe in your surroundings?: Yes Assistance Do you need any assistance at home?: no Review of Systems Review of Systems Hints Review of Present Symptoms: Reports Shortness of Breath with Exertion, Fatigue, Heart Arrhythmia/Irregularities, Appetite - Normal and Appetite - Special Diet; Denies Shortness of Breath at Rest, PVD, Operative Discomfort, Angina, Wound Healing, Dizziness/Lightheadedness, Sleep - Normal or Sexual Changes Pain Is Patient Pain Free?: Yes Risk Factor Assessment Chief Complaint Chief Complaint: PCI with stent Vital Signs Blood Pressure: 109/63 Pulse Pulse Rate: 66 Hypertension Blood Pressure Sitting - Right Arm: 109/63 Obesity Height: 6 ft Weight:: 197 lb Weight in Pounds: 197.0 lbs Body Mass Index (BMI): 26.7 Nutritional Referral for Obesity: No Physical Inactivity Physical Inactivity: Reg Exercise 30 min/day Risk Stratification Risk Guidelines: Lowest Risk: Risk Factor for Smoking, Risk Factor for Obesity and Risk Factor for Depression, Moderate Risk: Risk Factor for Diabetes, Risk Factor for Hypertension and Risk Factor for Sedentary Lifestyle and Highest Risk: Risk Factor for Dyslipidemia For Smoking Smoking Risk Guidelines For Dyslipidemia Dyslipidemia Risk Guidelines For Diabetes Mellitus Diabetes Risk Guidelines For Obesity/Overweight Obesity/Overweight Risk Guidelines For Hypertension Hypertension Risk Guidelines For Sedentary Lifestyle Sedentary Lifestyle Risk Guidelines For Depression Depression Risk Guidelines Family History Family History Father Martha Gehrig disease Mother Myocardial infarction CAD (coronary artery disease) Brother Myocardial infarction, Onset Age: 60 Hypertension Multiple sclerosis Other Family history of hypertension Motivation Motivation to Participate On a scale of 1 to 10, how prepared are you to commit to attending program?: 8 What do you see as the benefits of succesfully completing the program? In other words, what do you hope to get out of participating in the program?: increased energy Are there issues you are dealing with that will interfere with completing the program?: no Do you have a spouse or signficant other, family or friends who will help support you to complete the program?: yes
[2023-06-23 09:53] VITALS: BP 109/63; PULSE 66
--- NOTE | 2023-06-23 09:54 | PCM.CR.ITP ---
Diagnosis General Information Admitting Diagnosis: PCi with stent Personal Learning Style:: Audio/Visual Stage of change r/t lifestyle modifications:: Contemplation Gave educational material for:: Treating Heart Disease, How The Heart Works, What it means to have Heart Disease, How Coronary Artery Disease is Diagnosed, Heart Procedures, What Heart Medications Do, Risk Factors & Modifications, Living an Active Life, Nutrition, Emotions & Heart Disease, Stress Management & Relaxation and Sleep Disorders & Heart Disease Education/Goals Cardiac Rehabilitation Goals Personal Goals: Initial Assessment: Improve management of stress and emotions, Improve energy level, Participate in home exercise program, Improve muscle strength and endurance, Improve diet and eating habits (eat healthier) and Control risk factors (learn risk factor modification) Scale for measuring improvement of personal goals Diagnosis & Disease Process Outcomes/Goals: Pt IDs own risk factors & lifestyle modifications by Session 10, Verbalizes symptoms of angina & response by session 3., Pt independently manages and Other Additional Outcomes/Goals: Plan/Interventions: Assist Pt to ID & engage in lifestyle modification to reduce CVD risk, Instruct on individual risk factors, Review symptoms of angina & emergency actions, Review secondary diagnosis & identify educational needs. and Other see comment 30 day Reassessments:: Not Met 30 day Reassessments:: Not Met 30 day Reassessments:: Not Met 30 day Reassessments:: Not Met Final Reassessments:: Not Met Safety Referral to Physical Therapy: No Referral to [facility] Case Management: No Fall Risk Assessed:: Yes Assistive Devices:: None Exercise - Initial Assessment Visit Date of Eval: 06/23/23 (initial eval ) Mets: Pre-: >3 METS for 30 minutes by discharge, >5 METS for 30 minutes by discharge, >7 METS for 30 minutes by discharge and Unable to meet goal due to: (see comment below) Physician Prescribed Exercise Modalities: Treadmill, Rower, Airdyne, NuStep, SciFit and Lateral [place] Frequency: 3x/week for 12 weeks [36 sessions] Intensity: 60-80% of age predicted maximum heart rate reserve Duration: 30 - 45 minutes Current METSs:: 3 Target Heart Rate:: 95-111 Resting Blood Pressure: 109/63 EKG Type: SR with 1st degree AV block Outcomes & Goals Goals:: Verbalizes understanding of THR, RPE & goal METS by session 6, Documents in home exercise log/reports 30 min aerobic 5 day/wk by DC, Demonstrates accurate pulse taking by DC and Other additional outcome/goals: see below Intervention & Plan Exercise Program Goals: Instruct on personal THR & RPE, Instruct on MET level & personal MET goal, Show patient to take own pulse /validate performance until accurate, Instruct on home exercise and Other additional plan/int Physical Activity Home Exercise Physical Activity - Home Exercise: Safe Exercise, Warm-up, Self-monitoring, Cool-Down, Home Exercise > 30 min Daily and Sitting Time <3 hours/daily Outcomes & Goals Outcomes/Goals: Demonstrates correct Warm-up/exercise Cool-Down (S3) if = 2.5 METs, Verbalizes symptoms of exercise intolerance by Session 3 (S3), Demonstrate safe equipment use (S3) & follows exercise prescrition (6) and Other: See below Intervention & Plan Plan/Intervention: Instruct warm-up & cool-down if exercising at > 2 METs, Instruct on symptoms of exercise intolerance & actions to take, Instruct & monitor on saf, Assess intial functional capacity & safety risk and Other See below Nutrition - Initial Assessment Program Goals Nutrition Program Goals Patient has diagnosis of Hyperlipidemia (ICD E78)?: Yes Visit Date of Eval: 06/23/23 (initial eval ) Cholesterol/Lipids (Other Core Measures) Determine presence & major risk factors that modify LDL goal: Hypertension or hypertensive medication, Low HDL cholesterol <40 mg/dL*, Family history of premature CHD in Male < 55 years: female <65 yearsFa and Age men > 45 years; women >/= 55 years Outcomes/Goals: Pt IDs own risk factors & lifestyle modifications by Session 10, Verbalizes symptoms of angina & response by session 3., Pt independently manages and Other Additional Outcomes/Goals: Intervention/Plan: Advocate for lipid panel cholesterol medication if applicable, Instruct on personal lipid levels & lipid goals/NCEP guidelines, Instruct on cholesterol and Other additional plan/int Referral to dietitian:: No Diabetes (Other Core Measures) Diabetes Type: Not Applicable Weight Mgt (Other Care) Height: 6 ft Weight:: 197 lb BMI: 26.7 Diagnosis Overweight/Obesity BMI> 30% ICD-10 E66: No Diagnosis High BMI/Morbid Obesity BMI> 35% ICD-10 Z68: No Outcomes/Goals: Pt sets, maintains & shows weight loss goal & trend during rehab and Other additional outcomes/goals Intervention/Plan: Instruct on ideal BMI & set weight loss goal w/patient, Assist pt to ID & incorporate diet changes for weight loss by S9, Refer to Structured Weight Loss program as appropriate, Encourage goal of using 250-300dcal per session for weight loss and Other additional plan/interventions Healthy Eating Habits Will attend diet classes:: Yes Outcomes/Goals:: Consume diet rich in vegs,fruits,whole grain/high fiber,fish,lean meat, Limit sat/trans fats,cholesterol & added salts & sugars and Other additional outcome/goals: Intervention/Plan:: Assess current eating habits and Other Additional plan/interventions Education Gave educational materials for:: Signs & symptoms of hypoglycemia, Signs & symptoms of hyperglycemia, Relate diabetes to coronary artery disease and Healthy eating Core - Initial Assessment Visit Date of Eval: 06/23/23 (initial eval ) Medication Compliance Preventative Medication(s):: Ticagrelor/P2Y12 inhibitor, Statin/lipid and Beta asunicon H/O mental health issues: depression, anxiety, or addiction?: No Doesn?t believe in the benefits of treatment?: No Believes medications are unnecessary or harmful?: No Has a concern about medication side effects?: No Expresses concern over the cost of medications?: No Outcomes/Goals: Verbalizes medications,desired effect & common side effects @ DC, Pt self-reports following medication regimen, Keeps card in wallet w/medications listed by DC and Other additional outcome/goals: Interventions/plans: Instruct on medication effects & side effects, Review medication list w/patient every two weeks, Instruct importance of taking meds as ordered & assist problem solving and Other additional Hypertension Resting Blood Pressure:: 109/63 [place] [employer] Hypertension Guidelines Outcomes/Goals: Able to verbalize/achieve optimal blood pressure <130/80, Incorporates diet changes & exercise for blood pressure control by DC and Other additional outcomes/goals Interventions/plan: Instruct on optimal blood pressure, hypertension & medications, Instruct on effects of sodium, alcohol, stress, exercise &hypertension and Other additional plan/interventions Tobacco Cessation Referral Smoking Cessation Referral:: No Individual Education/Counseling:: No Education Schedule Given:: Yes Psychosocial - Initial Assess VIsit Date of Eval: 06/23/23 (initial eval) History of previous Mental disease:: No Target Goals Target Goals Outcomes/Goals: See list Psychosocial Outcomes/Goals:: ID's personal stressors & 2 strategies to manage stress by discharge and Other Additional outcome/goals: Intervention/Plan: See List Interventions/Plan:: Assess stressors,coping strategies & signs of derpression on admission, Instruct/assist pt to develop coping & personal stress Mgt strategies, Refer to Behavioral Health if appropriate, Refer to Physician if appropriate, Instruct patient to recognize signs & symptoms of depression, Instruct patient to recog and Other additional plan/intervention Patient Health Questionnaire PHQ-9 Screening Initial Assessment: 1. Little interest or pleasure in doing things: Not at all 2. Feeling down, depressed, or hopeless: Several days 3. Trouble falling or staying asleep, or sleeping too much: Nearly every day 4. Feeling tired or having little energy: Several days 5. Poor appetite or overeating: Not at all 6. Feeling bad about yourself -- or that you are a failure or have let yourself or your family down: Several days 7. Trouble concentrating on things, such as reading the newspaper or watching television: Not at all 8. Moving or speaking so slowly that other people could have noticed. Or the opposite - being so fidgety or restless that you have been moving around a lot more than usual: Not at all 9. Thoughts that you would be better off , or of hurting yourself in some way: Not at all How difficult have these problems made it for you to do your work, take care of things at home, or get along with other people?: Not difficult at all Total Score: 6 FRED-Q SV Test Statements CAD is a disease of the arteries in the heart: False Examples of risk factors for heart disease: True Angina is chest pain or discomfort: True The benefits of resistance training include: True Eating more meat and dairy products: False Anti-platelet medications such as aspirin are important: True The only effective way to manage stress: False An exercise warm-up slowly increases heart rate: False Prepared, processed foods usually have high sodium: True Depression is common after a heart attack: True The statin medications lower cholesterol: True To control blood pressure, lower the amount of sodium: True If someone gets chest discomfort during walking: False Transfats are partially hydrogenated vegetable oils: I Don't Know Sleep apnea that is not treated increases the risk: False To control cholesterol, one should become a vegetarian: False Someone knows if he/she is exercising at the right level: I Don't Know Diabetes cannot be prevented with exercise & health eating: I Don't Know Stress is a large risk for heart attack: True A diet that can help lower blood pressure is rich in: True Total Score Total Correct Responses: 16 Self-Efficacy 6-Item Scale Initial Assessment: We would like to know how confident you are in doing certain activities. Please select your confidence level for: Fatigue Select Number: 8 Physical Discomfort or Pain Select Number: 8 Emotional Distress Select Number: 8 Other Symptoms or Health Problems Select Number: 4 Different Tasks and Activities Select Number: 8 Medication Select Number: 8 Total Score:: 7 Nutrition Survey Nutrition Survey Instructions Scoring Instructions Nutrition Survey Initial: Have you lost >10 lbs over the past 2 months without trying?: No Are you following a special diet at home for diabetes, low fat, or low salt?: No Are you interested in meeting with a dietitian for help understanding your diet?: Yes Do you eat less than 3 meals a day?: Yes Do you eat fatty meats (corral, sausage, ribs, etc), fried foods, desserts, large amounts of salad dressings, margarine, butter, or cheese most days?: No Do you have food allergies? [Enter types in comment field]: No Do you eat in restaurants more than 3 times a week?: No Do you season food with salt, seasoning salt, or garlic salt?: Yes Do you used canned, boxed, frozen meals, or soups, seasoning packets?: No Total Score:: 3 Exercise - Final/Discharge Physician Prescribed Exercise Modalities: Treadmill, Rower, Airdyne, NuStep, SciFit and Lateral Warp Knit Operator Frequency: 3x/week for 12 weeks [36 sessions] Intensity: 60-80% of age predicted maximum heart rate reserve Current METSs:: 3 Target Heart Rate:: 95-111 Nutrition - 30-Day Assessment Weight Mgt (Other Care) Height: 6 ft Weight:: 197 lb BMI: 26.7 Nutrition - 60-Day Assessment Weight Mgt (Other Care) Height: 6 ft Weight:: 197 lb BMI: 26.7 Core - Final Assessment Hypertension Resting Blood Pressure:: 109/63 [employer] Hypertension Guidelines Core - 60-Day Assessment Hypertension Resting Blood Pressure:: 109/63 [place] [employer] Hypertension Guidelines Psychosocial - 30-Day Assess Target Goals Target Goals Psychosocial - 60-Day Assess Target Goals Target Goals Psychosocial - 90-Day Assess Target Goals Target Goals Psychosocial - Final Assessmen Target Goals Target Goals Nutrition - 90-Day Assessment Weight Mgt (Other Care) Height: 6 ft Weight:: 197 lb BMI: 26.7 Nutrition - Final Assessment Program Goals Patient has diagnosis of Hyperlipidemia (ICD E78)?: Yes Weight Mgt (Other Care) Height: 6 ft Weight:: 197 lb BMI: 26.7
[2023-06-23 10:00] VITALS: BP 109/63
[2023-06-23 10:29] VITALS: BMI 26.7
== END | disposition home or self-care (01) ==
PROVIDERS: PCP Family Medicine; Referring Provider Internal Medicine Cardiovascular Disease; Visit Provider Internal Medicine Cardiovascular Disease
DX: Z95.5 Presence of coronary angioplasty implant and graft (principal)

== ENCOUNTER 2023-07-09 09:15 | Outpatient (RCR) | payer MEDICARE, SELFPAY ==
[2023-06-23 10:29] VITALS: BMI 26.7
== END 2023-07-10 23:59 ==
LOC: CR 09:15
PROVIDERS: PCP Family Medicine; Referring Provider Internal Medicine Cardiovascular Disease; Visit Provider Internal Medicine Cardiovascular Disease
DX: Z95.5 Presence of coronary angioplasty implant and graft (principal); I25.10 Atherosclerotic heart disease of native coronary artery without angina pectoris; I43 Cardiomyopathy in diseases classified elsewhere
CPT/HCPCS: 93798

== ENCOUNTER → 2023-07-23 | Outpatient (CLI) | payer MEDICARE, SELFPAY ==
[2023-07-21 08:23] VITALS: BMI 25.6
[2023-07-23 11:30] LABS: AST(SGOT) 37 U/L (15-37); Alanine Aminotransfer ALT/SGPT 59 U/L (16-61); Albumin, Serum 3.7 g/dL (3.2-5.0); Alkaline Phosphatase 81 U/L (45-117); Bilirubin, Direct 0.29 mg/dL (0.00-0.30); Cholesterol 104 mg/dL (200); Globulin 3.4 g/dL (2.2-4.2); High Density Lipoprotein 44 mg/dL; Protein, Total 7.1 g/dL (6.4-8.2); Triglycerides 110 mg/dL; Very Low Density Lipoprotein 22 mg/dL (5-40)
== END | disposition home or self-care (01) ==
LOC: LAB 09:48
PROVIDERS: PCP Family Medicine; Referring Provider Nurse Practitioner Family; Visit Provider Nurse Practitioner Family
DX: I25.10 Atherosclerotic heart disease of native coronary artery without angina pectoris (principal); I48.0 Paroxysmal atrial fibrillation; E78.00 Pure hypercholesterolemia, unspecified; Z79.899 Other long term (current) drug therapy; Z95.5 Presence of coronary angioplasty implant and graft
CPT/HCPCS: 36415; 80061; 80076

== ENCOUNTER 2023-08-08 09:15 | Outpatient (RCR) | payer MEDICARE, SELFPAY ==
[2023-06-23 10:29] VITALS: BMI 26.7
--- NOTE | 2023-07-21 08:07 | CR.ITP_ITS ---
Exercise - Initial Assessment Visit Session #:: 11 Nutrition - Initial Assessment Weight Mgt (Other Care) Height: 6 ft Weight:: 189 lb BMI: 25.6 Psychosocial - Initial Assess Target Goals Target Goals Patient Health Questionnaire PHQ-9 Screening 30-Day Re-eval Assessment: 1. Little interest or pleasure in doing things: Not at all 2. Feeling down, depressed, or hopeless: Several days 3. Trouble falling or staying asleep, or sleeping too much: Nearly every day 4. Feeling tired or having little energy: Several days 5. Poor appetite or overeating: Not at all 6. Feeling bad about yourself -- or that you are a failure or have let you rself or your family down: Several days 7. Trouble concentrating on things, such as reading the newspaper or watching television: Not at all 8. Moving or speaking so slowly that other people could have noticed. Or the opposite - being so fidgety or restless that you have been moving around a lot more than usual: Not at all 9. Thoughts that you would be better off , or of hurting yourself in some way: Not at all How difficult have these problems made it for you to do your work, take care of things at home, or get along with other people?: Not difficult at all Total Score: 6 Self-Efficacy 6-Item Scale 30-Day Re-eval Assessment: We would like to know how confident you are in doing certain activities. Please select your confidence level for: Fatigue Select Number: 8 Physical Discomfort or Pain Select Number: 8 Emotional Distress Select Number: 8 Other Symptoms or Health Problems Select Number: 4 Different Tasks and Activities Select Number: 8 Medication Select Number: 8 Total Score:: 7 Nutrition Survey Nutrition Survey Instructions Scoring Instructions Exercise - 30-day Assessment Visit Date of Eval: 07/21/23 Session #:: 11 Physician Prescribed Exercise Modalities: Treadmill, Rower and Airdyne Frequency: 3x/week for 12 weeks [36 sessions] Intensity: 60-80% of age predicted maximum heart rate reserve Duration: 30 - 45 minutes Current METSs:: 5.9 Target Heart Rate:: 95-111 Current RPE:: 11-12 Maximum Excercise HR:: 106 Resting Blood Pressure: 100/80 Maximum Exercise Blood Pressure: 132/78 EKG Type: NSR to ST with rare pac, pvc Outcomes & Goals Goals:: Verbalizes understanding of THR, RPE & goal METS by session 6, Documents in home exercise log/reports 30 min aerobic 5 day/wk by DC, Demonstrates accurate pulse taking by DC and Other additional outcome/goals: see below Intervention & Plan Exercise Program Goals: Instruct on personal THR & RPE, Instruct on MET level & personal MET goal, Show patient to take own pulse /validate performance until accurate, Instruct on home exercise and Other additional plan/int 30-day Reassessments 30 day Reassessments:: Progressing Reassessment Notes & Comments:: RPE explained Physical Activity Home Exercise Physical Activity - Home Exercise: Safe Exercise, Warm-up, Self-monitoring, Cool-Down, Home Exercise > 30 min Daily and Sitting Time <3 hours/daily Outcomes & Goals Outcomes/Goals: Demonstrates correct Warm-up/exercise Cool-Down (S3) if = 2.5 METs, Verbalizes symptoms of exercise intolerance by Session 3 (S3), Demonstrate safe equipment use (S3) & follows exercise prescrition (6) and Other: See below Intervention & Plan Plan/Intervention: Instruct warm-up & cool-down if exercising at > 2 METs, Instruct on symptoms of exercise intolerance & actions to take, Instruct & monitor on saf, Assess intial functional capacity & safety risk and Other See below 30-day Reassessments 30 day Reassessments:: Progressing Reassessment Notes & Comments:: warm up encouraged Nutrition - 30-Day Assessment Program Goals Nutrition Program Goals Patient has diagnosis of Hyperlipidemia (ICD E78)?: Yes Visit Date of Eval: 07/21/23 Session #:: 11 Cholesterol/Lipids (Other Core Measures) Determine presence & major risk factors that modify LDL goal: Hypertension or hypertensive medication, Low HDL cholesterol <40 mg/dL*, Family history of premature CHD in Male < 55 years: female <65 yearsFa and Age men > 45 years; women >/= 55 years Outcomes/Goals: Pt IDs own risk factors & lifestyle modifications by Session 10, Verbalizes symptoms of angina & response by session 3., Pt independently manages and Other Additional Outcomes/Goals: Intervention/Plan: Advocate for lipid panel cholesterol medication if applicable, Instruct on personal lipid levels & lipid goals/NCEP guidelines, Instruct on cholesterol and Other additional plan/int 30-day Reassessments:: Progressing Reassessment Notes & Comments:: risk factors reviewed Diabetes (Other Core Measures) Diabetes Type: Not Applicable Weight Mgt (Other Care) Height: 6 ft Weight:: 189 lb BMI: 25.6 Diagnosis Overweight/Obesity BMI> 30% ICD-10 E66: No Diagnosis High BMI/Morbid Obesity BMI> 35% ICD-10 Z68: No Outcomes/Goals: Pt sets, maintains & shows weight loss goal & trend during rehab and Other additional outcomes/goals Intervention/Plan: Instruct on ideal BMI & set weight loss goal w/patient, Assist pt to ID & incorporate diet changes for weight loss by S9, Refer to Structured Weight Loss program as appropriate, Encourage goal of using 250- 300dcal per session for weight loss and Other additional plan/interventions 30 day Reassessments:: Progressing Reassessment Notes & Comments:: pt to attend nutrition class Healthy Eating Habits Will attend diet classes:: Yes Outcomes/Goals:: Consume diet rich in vegs,fruits,whole grain/high fiber,fish,lean meat, Limit sat/trans fats,cholesterol & added salts & sugars and Other additional outcome/goals: Intervention/Plan:: Assess current eating habits and Other Additional plan/interventions 30-day Reassessments:: Progressing Reassessment Notes & Comments:: pt to attend nutrition class Education Gave educational materials for:: Signs & symptoms of hypoglycemia, Signs & symptoms of hyperglycemia, Relate diabetes to coronary artery disease and Healthy eating Nutrition - 60-Day Assessment Weight Mgt (Other Care) Height: 6 ft Weight:: 189 lb BMI: 25.6 Core - 30-Day Assessment Visit Date of Eval: 07/21/23 Session #:: 11 Medication Compliance Preventative Medication(s):: Ticagrelor/P2Y12 inhibitor, Statin/lipid and Beta asuncion H/O mental health issues: depression, anxiety, or addiction?: No Doesn?t believe in the benefits of treatment?: No Believes medications are unnecessary or harmful?: No Has a concern about medication side effects?: No Expresses concern over the cost of medications?: No Outcomes/Goals: Verbalizes medications,desired effect & common side effects @ DC, Pt self-reports following medication regimen, Keeps card in wallet w/medications listed by DC and Other additional outcome/goals: Interventions/plans: Instruct on medication effects & side effects, Review medication list w/patient every two weeks, Instruct importance of taking meds as ordered & assist problem solving and Other additional 30-day Reassessments:: Progressing Reassessment Notes & Comments:: pt encouraged to take his meds Tobacco Use Tobacco Use: Non-smoker Hypertension Resting Blood Pressure:: 100/80 [place] [employer] Hypertension Guidelines Peak Exercise Blood Pressure:: 132/78 Outcomes/Goals: Able to verbalize/achieve optimal blood pressure <130/80, Incorporates diet changes & exercise for blood pressure control by DC and Other additional outcomes/goals Interventions/plan: Instruct on optimal blood pressure, hypertension & medications, Instruct on effects of sodium, alcohol, stress, exercise &h ypertension and Other additional plan/interventions 30 day Reassessments:: Progressing Reassessment Notes & Comments:: pt encouraged to take his meds Tobacco Cessation Referral Smoking Cessation Referral:: No Individual Education/Counseling:: No Education Schedule Given:: Yes Psychosocial - 30-Day Assess VIsit Date of Eval: 07/21/23 Session #:: 11 History of previous Mental disease:: No Target Goals Target Goals Outcomes/Goals: See list Psychosocial Outcomes/Goals:: ID's personal stressors & 2 strategies to manage stress by discharge and Other Additional outcome/goals: Intervention/Plan: See List Interventions/Plan:: Assess stressors,coping strategies & signs of derpression on admission, Instruct/assist pt to develop coping & personal stress Mgt strategies, Refer to Behavioral Health if appropriate, Refer to Physician if appropriate, Instruct patient to recognize signs & symptoms of depression, Instruct patient to recog and Other additional plan/intervention 30-day Reassessments: 30 day Reassessments:: Met Psychosocial - 60-Day Assess Target Goals Target Goals Outcomes/Goals: See list Psychosocial Outcomes/Goals:: ID's personal stressors & 2 strategies to manage stress by discharge and Other Additional outcome/goals: Psychosocial - 90-Day Assess Target Goals Target Goals Psychosocial - Final Assessmen Target Goals Target Goals Nutrition - 90-Day Assessment Weight Mgt (Other Care) Height: 6 ft Weight:: 189 lb BMI: 25.6 Nutrition - Final Assessment Weight Mgt (Other Care) Height: 6 ft Weight:: 189 lb BMI: 25.6
[2023-07-21 08:10] VITALS: BP 100/80
[2023-07-21 08:23] VITALS: BP 100/80; BMI 25.6
== END 2023-08-10 23:59 ==
LOC: CR 09:15
PROVIDERS: PCP Family Medicine; Referring Provider Internal Medicine Cardiovascular Disease; Visit Provider Internal Medicine Cardiovascular Disease
DX: Z95.5 Presence of coronary angioplasty implant and graft (principal); I25.10 Atherosclerotic heart disease of native coronary artery without angina pectoris; I43 Cardiomyopathy in diseases classified elsewhere
CPT/HCPCS: 93798

== ENCOUNTER 2023-09-05 09:15 | Outpatient (RCR) | payer MEDICARE, SELFPAY ==
[2023-07-21 08:23] VITALS: BMI 25.6
[2023-08-11 00:49] VITALS: BP 100/80
--- NOTE | 2023-08-20 08:03 | PCM.CR.ITP ---
Nutrition - Initial Assessment Weight Mgt (Other Care) Height: 6 ft Weight:: 187 lb 8 oz BMI: 25.4 Psychosocial - Initial Assess Target Goals Target Goals Patient Health Questionnaire PHQ-9 Screening 60-Day Re-eval Assessment: 1. Little interest or pleasure in doing things: Not at all 2. Feeling down, depressed, or hopeless: Several days 3. Trouble falling or staying asleep, or sleeping too much: Nearly every day 4. Feeling tired or having little energy: Several days 5. Poor appetite or overeating: Not at all 6. Feeling bad about yourself -- or that you are a failure or have let yourself or your family down: Several days 7. Trouble concentrating on things, such as reading the newspaper or watching television: Not at all 8. Moving or speaking so slowly that other people could have noticed. Or the opposite - being so fidgety or restless that you have been moving around a lot more than usual: Not at all 9. Thoughts that you would be better off , or of hurting yourself in some way: Not at all How difficult have these problems made it for you to do your work, take care of things at home, or get along with other people?: Not difficult at all Total Score: 6 Self-Efficacy 6-Item Scale 60-Day Re-eval Assessment: We would like to know how confident you are in doing certain activities. Please select your confidence level for: Fatigue Select Number: 8 Physical Discomfort or Pain Select Number: 8 Emotional Distress Select Number: 8 Other Symptoms or Health Problems Select Number: 4 Different Tasks and Activities Select Number: 8 Medication Select Number: 8 Total Score:: 7 Nutrition Survey Nutrition Survey Instructions Scoring Instructions Exercise - 60-day Assessment Visit Date of Eval: 08/20/23 Session #:: 20 Physician Prescribed Exercise Modalities: Treadmill, Rower and Airdyne Frequency: 3x/week for 12 weeks [36 sessions] Intensity: 60-80% of age predicted maximum heart rate reserve Duration: 30 - 45 minutes Current METSs:: 6.6 Target Heart Rate:: 103-119 Current RPE:: 12 Maximum Excercise HR:: 104 Resting Blood Pressure: 100/72 Maximum Exercise Blood Pressure: 130/78 EKG Type: NSR to ST with a rare PAC, PVC. Rare vent bigeminy, trigeminy. Outcomes & Goals Goals:: Verbalizes understanding of THR, RPE & goal METS by session 6, Documents in home exercise log/reports 30 min aerobic 5 day/wk by DC, Demonstrates accurate pulse taking by DC and Other additional outcome/goals: see below Intervention & Plan Exercise Program Goals: Instruct on personal THR & RPE, Instruct on MET level & personal MET goal, Show patient to take own pulse /validate performance until accurate, Instruct on home exercise and Other additional plan/int 30-day Reassessments 30 day Reassessments:: Progressing Reassessment Notes & Comments:: THR explained Physical Activity Home Exercise Physical Activity - Home Exercise: Safe Exercise, Warm-up, Self-monitoring, Cool-Down, Home Exercise > 30 min Daily and Sitting Time <3 hours/daily Outcomes & Goals Outcomes/Goals: Demonstrates correct Warm-up/exercise Cool-Down (S3) if = 2.5 METs, Verbalizes symptoms of exercise intolerance by Session 3 (S3), Demonstrate safe equipment use (S3) & follows exercise prescrition (6) and Other: See below Intervention & Plan Plan/Intervention: Instruct warm-up & cool-down if exercising at > 2 METs, Instruct on symptoms of exercise intolerance & actions to take, Instruct & monitor on saf, Assess intial functional capacity & safety risk and Other See below 30-day Reassessments 30 day Reassessments:: Progressing Reassessment Notes & Comments:: cool down encouraged Nutrition - 30-Day Assessment Weight Mgt (Other Care) Height: 6 ft Weight:: 187 lb 8 oz BMI: 25.4 Nutrition - 60-Day Assessment Program Goals Nutrition Program Goals Patient has diagnosis of Hyperlipidemia (ICD E78)?: Yes Visit Date of Eval: 08/20/23 Session #:: 20 Cholesterol/Lipids (Other Core Measures) Determine presence & major risk factors that modify LDL goal: Hypertension or hypertensive medication, Low HDL cholesterol <40 mg/dL*, Family history of premature CHD in Male < 55 years: female <65 yearsFa and Age men > 45 years; women >/= 55 years Outcomes/Goals: Pt IDs own risk factors & lifestyle modifications by Session 10, Verbalizes symptoms of angina & response by session 3., Pt independently manages and Other Additional Outcomes/Goals: Intervention/Plan: Advocate for lipid panel cholesterol medication if applicable, Instruct on personal lipid levels & lipid goals/NCEP guidelines, Instruct on cholesterol and Other additional plan/int 30-day Reassessments:: Progressing Reassessment Notes & Comments:: pt to attend nutrition class Diabetes (Other Core Measures) Diabetes Type: Not Applicable Weight Mgt (Other Care) Height: 6 ft Weight:: 187 lb 8 oz BMI: 25.4 Diagnosis Overweight/Obesity BMI> 30% ICD-10 E66: No Diagnosis High BMI/Morbid Obesity BMI> 35% ICD-10 Z68: No Outcomes/Goals: Pt sets, maintains & shows weight loss goal & trend during rehab and Other additional outcomes/goals Intervention/Plan: Instruct on ideal BMI & set weight loss goal w/patient, Assist pt to ID & incorporate diet changes for weight loss by S9, Refer to Structured Weight Loss program as appropriate, Encourage goal of using 250-300dcal per session for weight loss and Other additional plan/interventions 30 day Reassessments:: Progressing Reassessment Notes & Comments:: pt to attend nutrition class Healthy Eating Habits Will attend diet classes:: Yes Outcomes/Goals:: Consume diet rich in vegs,fruits,whole grain/high fiber,fish,lean meat, Limit sat/trans fats,cholesterol & added salts & sugars and Other additional outcome/goals: Intervention/Plan:: Assess current eating habits and Other Additional plan/interventions 30-day Reassessments:: Progressing Reassessment Notes & Comments:: pt to attend nutrition class Education Gave educational materials for:: Signs & symptoms of hypoglycemia, Signs & symptoms of hyperglycemia, Relate diabetes to coronary artery disease and Healthy eating Core - 60-Day Assessment Visit Date of Eval: 08/20/23 Session #:: 20 Medication Compliance Preventative Medication(s):: Ticagrelor/P2Y12 inhibitor, Statin/lipid and Beta asuncion H/O mental health issues: depression, anxiety, or addiction?: No Doesn?t believe in the benefits of treatment?: No Believes medications are unnecessary or harmful?: No Has a concern about medication side effects?: No Expresses concern over the cost of medications?: No Outcomes/Goals: Verbalizes medications,desired effect & common side effects @ DC, Pt self-reports following medication regimen, Keeps card in wallet w/medications listed by DC and Other additional outcome/goals: Interventions/plans: Instruct on medication effects & side effects, Review medication list w/patient every two weeks, Instruct importance of taking meds as ordered & assist problem solving and Other additional 30-day Reassessments:: Progressing Reassessment Notes & Comments:: pt encouraged to take his meds Tobacco Use Tobacco Use: Non-smoker Hypertension Hypertension Diagnosis:: Hypertension ICD-10 I10 Resting Blood Pressure:: 100/72 [place] [employer] Hypertension Guidelines Peak Exercise Blood Pressure:: 130/78 Outcomes/Goals: Able to verbalize/achieve optimal blood pressure <130/80, Incorporates diet changes & exercise for blood pressure control by DC and Other additional outcomes/goals Interventions/plan: Instruct on optimal blood pressure, hypertension & medications, Instruct on effects of sodium, alcohol, stress, exercise &hypertension and Other additional plan/interventions 30 day Reassessments:: Met Tobacco Cessation Referral Smoking Cessation Referral:: No Individual Education/Counseling:: No Education Schedule Given:: Yes Psychosocial - 30-Day Assess Target Goals Target Goals Outcomes/Goals: See list Psychosocial Outcomes/Goals:: ID's personal stressors & 2 strategies to manage stress by discharge and Other Additional outcome/goals: Psychosocial - 60-Day Assess VIsit Date of Eval: 08/20/23 Session #:: 20 History of previous Mental disease:: No Target Goals Target Goals Outcomes/Goals: See list Psychosocial Outcomes/Goals:: ID's personal stressors & 2 strategies to manage stress by discharge and Other Additional outcome/goals: Intervention/Plan: See List Interventions/Plan:: Assess stressors,coping strategies & signs of derpression on admission, Instruct/assist pt to develop coping & personal stress Mgt strategies, Refer to Behavioral Health if appropriate, Refer to Physician if appropriate, Instruct patient to recognize signs & symptoms of depression, Instruct patient to recog and Other additional plan/intervention 30-day Reassessments: 30 day Reassessments:: Met Psychosocial - 90-Day Assess Target Goals Target Goals Psychosocial - Final Assessmen Target Goals Target Goals Nutrition - 90-Day Assessment Weight Mgt (Other Care) Height: 6 ft Weight:: 187 lb 8 oz BMI: 25.4 Nutrition - Final Assessment Weight Mgt (Other Care) Height: 6 ft Weight:: 187 lb 8 oz BMI: 25.4
[2023-08-20 08:14] VITALS: BP 100/72; BMI 25.4
--- NOTE | 2023-08-22 08:05 | PCM.CR.ITP ---
Nutrition - Initial Assessment Weight Mgt (Other Care) Height: 6 ft Weight:: 186 lb BMI: 25.2 Psychosocial - Initial Assess Target Goals Target Goals Nutrition Survey Nutrition Survey Instructions Scoring Instructions Exercise - 60-day Assessment Visit Date of Eval: 08/22/23 Session #:: 21 Physician Prescribed Exercise Modalities: Treadmill, Rower, Airdyne, NuStep, SciFit and Lateral Milk Pickup Driver Frequency: 2x/week for 18 weeks [36 sessions] and 3x/week for 12 weeks [36 sessions] Intensity: 60-80% of age predicted maximum heart rate reserve Duration: 30 - 45 minutes Current METSs:: 6.6 Target Heart Rate:: 103-119 Current RPE:: 12 Maximum Excercise HR:: 111 Resting Blood Pressure: 114/76 Maximum Exercise Blood Pressure: 126/72 EKG Type: NSR to STw/ occas PAC, rare PVC. Rare vent bigeminy, trigeminy. One 4 beat Outcomes & Goals Goals:: Verbalizes understanding of THR, RPE & goal METS by session 6, Documents in home exercise log/reports 30 min aerobic 5 day/wk by DC, Demonstrates accurate pulse taking by DC and Other additional outcome/goals: see below Intervention & Plan Exercise Program Goals: Instruct on personal THR & RPE, Instruct on MET level & personal MET goal, Show patient to take own pulse /validate performance until accurate, Instruct on home exercise and Other additional plan/int 30-day Reassessments 30 day Reassessments:: Met Physical Activity Home Exercise Physical Activity - Home Exercise: Safe Exercise, Warm-up, Self-monitoring, Cool-Down, Home Exercise > 30 min Daily and Sitting Time <3 hours/daily Outcomes & Goals Outcomes/Goals: Demonstrates correct Warm-up/exercise Cool-Down (S3) if = 2.5 METs, Verbalizes symptoms of exercise intolerance by Session 3 (S3), Demonstrate safe equipment use (S3) & follows exercise prescrition (6) and Other: See below Intervention & Plan Plan/Intervention: Instruct warm-up & cool-down if exercising at > 2 METs, Instruct on symptoms of exercise intolerance & actions to take, Instruct & monitor on saf, Assess intial functional capacity & safety risk and Other See below 30-day Reassessments 30 day Reassessments:: Met Nutrition - 30-Day Assessment Weight Mgt (Other Care) Height: 6 ft Weight:: 186 lb BMI: 25.2 Nutrition - 60-Day Assessment Program Goals Nutrition Program Goals Patient has diagnosis of Hyperlipidemia (ICD E78)?: Yes Visit Date of Eval: 08/22/23 Session #:: 21 Cholesterol/Lipids (Other Core Measures) Determine presence & major risk factors that modify LDL goal: Hypertension or hypertensive medication, Low HDL cholesterol <40 mg/dL*, Family history of premature CHD in Male < 55 years: female <65 yearsFa and Age men > 45 years; women >/= 55 years Outcomes/Goals: Pt IDs own risk factors & lifestyle modifications by Session 10, Verbalizes symptoms of angina & response by session 3., Pt independently manages and Other Additional Outcomes/Goals: Intervention/Plan: Advocate for lipid panel cholesterol medication if applicable, Instruct on personal lipid levels & lipid goals/NCEP guidelines, Instruct on cholesterol and Other additional plan/int 30-day Reassessments:: Met Diabetes (Other Core Measures) Diabetes Type: Not Applicable Weight Mgt (Other Care) Height: 6 ft Weight:: 186 lb BMI: 25.2 Diagnosis Overweight/Obesity BMI> 30% ICD-10 E66: No Diagnosis High BMI/Morbid Obesity BMI> 35% ICD-10 Z68: No Outcomes/Goals: Pt sets, maintains & shows weight loss goal & trend during rehab and Other additional outcomes/goals Intervention/Plan: Instruct on ideal BMI & set weight loss goal w/patient, Assist pt to ID & incorporate diet changes for weight loss by S9, Refer to Structured Weight Loss program as appropriate, Encourage goal of using 250-300dcal per session for weight loss and Other additional plan/interventions 30 day Reassessments:: Met Healthy Eating Habits Will attend diet classes:: Yes Outcomes/Goals:: Consume diet rich in vegs,fruits,whole grain/high fiber,fish,lean meat, Limit sat/trans fats,cholesterol & added salts & sugars and Other additional outcome/goals: Intervention/Plan:: Assess current eating habits and Other Additional plan/interventions 30-day Reassessments:: Met Education Gave educational materials for:: Signs & symptoms of hypoglycemia, Signs & symptoms of hyperglycemia, Relate diabetes to coronary artery disease and Healthy eating Core - 60-Day Assessment Visit Date of Eval: 08/22/23 Session #:: 21 Medication Compliance Preventative Medication(s):: Ticagrelor/P2Y12 inhibitor, Statin/lipid and Beta asuncion H/O mental health issues: depression, anxiety, or addiction?: No Doesn?t believe in the benefits of treatment?: No Believes medications are unnecessary or harmful?: No Has a concern about medication side effects?: No Expresses concern over the cost of medications?: No Outcomes/Goals: Verbalizes medications,desired effect & common side effects @ DC, Pt self-reports following medication regimen, Keeps card in wallet w/medications listed by DC and Other additional outcome/goals: Interventions/plans: Instruct on medication effects & side effects, Review medication list w/patient every two weeks, Instruct importance of taking meds as ordered & assist problem solving and Other additional 30-day Reassessments:: Met Tobacco Use Tobacco Use: Non-smoker Hypertension Hypertension Diagnosis:: Hypertension ICD-10 I10 Resting Blood Pressure:: 114/76 [place] [employer] Hypertension Guidelines Peak Exercise Blood Pressure:: 126/72 Outcomes/Goals: Able to verbalize/achieve optimal blood pressure <130/80, Incorporates diet changes & exercise for blood pressure control by DC and Other additional outcomes/goals Interventions/plan: Instruct on optimal blood pressure, hypertension & medications, Instruct on effects of sodium, alcohol, stress, exercise &hypertension and Other additional plan/interventions 30 day Reassessments:: Met Tobacco Cessation Referral Smoking Cessation Referral:: No Individual Education/Counseling:: No Education Schedule Given:: Yes Psychosocial - 30-Day Assess Target Goals Target Goals Outcomes/Goals: See list Psychosocial Outcomes/Goals:: ID's personal stressors & 2 strategies to manage stress by discharge and Other Additional outcome/goals: Psychosocial - 60-Day Assess VIsit Date of Eval: 08/22/23 Session #:: 21 History of previous Mental disease:: No Target Goals Target Goals Outcomes/Goals: See list Psychosocial Outcomes/Goals:: ID's personal stressors & 2 strategies to manage stress by discharge and Other Additional outcome/goals: Intervention/Plan: See List Interventions/Plan:: Assess stressors,coping strategies & signs of derpression on admission, Instruct/assist pt to develop coping & personal stress Mgt strategies, Refer to Behavioral Health if appropriate, Refer to Physician if appropriate, Instruct patient to recognize signs & symptoms of depression, Instruct patient to recog and Other additional plan/intervention 30-day Reassessments: 30 day Reassessments:: Met Psychosocial - 90-Day Assess Target Goals Target Goals Psychosocial - Final Assessmen Target Goals Target Goals Nutrition - 90-Day Assessment Weight Mgt (Other Care) Height: 6 ft Weight:: 186 lb BMI: 25.2 Nutrition - Final Assessment Weight Mgt (Other Care) Height: 6 ft Weight:: 186 lb BMI: 25.2
[2023-08-22 08:14] VITALS: BP 114/76; BMI 25.2
== END 2023-09-09 23:59 ==
LOC: CR 09:15
PROVIDERS: PCP Family Medicine; Referring Provider Internal Medicine Cardiovascular Disease; Visit Provider Internal Medicine Cardiovascular Disease
DX: Z95.5 Presence of coronary angioplasty implant and graft (principal); I25.10 Atherosclerotic heart disease of native coronary artery without angina pectoris; I43 Cardiomyopathy in diseases classified elsewhere
CPT/HCPCS: 93798

== ENCOUNTER 2023-09-12 09:15 | Outpatient (RCR) | payer MEDICARE, SELFPAY ==
[2023-08-22 08:14] VITALS: BMI 25.2
[2023-09-10 00:27] VITALS: BP 100/80; BP 114/76
--- NOTE | 2023-09-15 08:08 | PCM.CR.ITP ---
Nutrition - Initial Assessment Weight Mgt (Other Care) Height: 6 ft 6 in Weight:: 185 lb BMI: 21.4 Core - Initial Assessment Hypertension Resting Blood Pressure:: 168/84 [place] [employer] Hypertension Guidelines Psychosocial - Initial Assess Target Goals Target Goals Referral to Behavioral Health PS - Interventions: Yes: Attend Stress Management Classes and No: Referral to Behavioral Health if PHQ-9 score >9:, No: Referral to [facility] and No: Referral to Physician if PHQ-9 if score is 5-9: Patient Health Questionnaire PHQ-9 Screening 60-Day Re-eval Assessment: 1. Little interest or pleasure in doing things: Not at all 2. Feeling down, depressed, or hopeless: Not at all 3. Trouble falling or staying asleep, or sleeping too much: Several days 4. Feeling tired or having little energy: Not at all 5. Poor appetite or overeating: Not at all 6. Feeling bad about yourself -- or that you are a failure or have let yourself or your family down: Not at all 7. Trouble concentrating on things, such as reading the newspaper or watching television: Not at all 8. Moving or speaking so slowly that other people could have noticed. Or the opposite - being so fidgety or restless that you have been moving around a lot more than usual: Not at all 9. Thoughts that you would be better off , or of hurting yourself in some way: Not at all How difficult have these problems made it for you to do your work, take care of things at home, or get along with other people?: Not difficult at all Total Score: 1 Self-Efficacy 6-Item Scale 90-Day Re-eval Assessment: We would like to know how confident you are in doing certain activities. Please select your confidence level for: Fatigue Select Number: 8 Physical Discomfort or Pain Select Number: 8 Emotional Distress Select Number: 8 Other Symptoms or Health Problems Select Number: 4 Different Tasks and Activities Select Number: 8 Medication Select Number: 8 Total Score:: 7 Nutrition Survey Nutrition Survey Instructions Scoring Instructions Exercise - 90-day Assessment Visit Date of Eval: 09/15/23 Session #:: 28 Physician Prescribed Exercise Modalities: Treadmill, Rower and Airdyne Frequency: 3x/week for 12 weeks [36 sessions] Intensity: 60-80% of age predicted maximum heart rate reserve Duration: 30 - 45 minutes Current METSs:: 7.5 Target Heart Rate:: 103-119 Current RPE:: 13-14 Maximum Excercise HR:: 114 Resting Blood Pressure: 100/64 EKG Type: NSR to sinus tach w/occas. PACs PVCs. Current Physical Activity or Exercising minutes: 35:08 Outcomes & Goals Goals:: Verbalizes understanding of THR, RPE & goal METS by session 6, Documents in home exercise log/reports 30 min aerobic 5 day/wk by DC and Demonstrates accurate pulse taking by DC Intervention & Plan Exercise Program Goals: Instruct on personal THR & RPE, Instruct on MET level & personal MET goal, Show patient to take own pulse /validate performance until accurate and Instruct on home exercise 30-day Reassessments 30 day Reassessments:: Met Physical Activity Home Exercise Physical Activity - Home Exercise: Safe Exercise, Warm-up, Self-monitoring, Cool-Down, Home Exercise > 30 min Daily and Sitting Time <3 hours/daily Outcomes & Goals Outcomes/Goals: Demonstrates correct Warm-up/exercise Cool-Down (S3) if = 2.5 METs, Verbalizes symptoms of exercise intolerance by Session 3 (S3) and Demonstrate safe equipment use (S3) & follows exercise prescrition (6) Intervention & Plan Plan/Intervention: Instruct warm-up & cool-down if exercising at > 2 METs, Instruct on symptoms of exercise intolerance & actions to take, Instruct & monitor on saf and Assess intial functional capacity & safety risk 30-day Reassessments 30 day Reassessments:: Met Nutrition - 30-Day Assessment Weight Mgt (Other Care) Height: 6 ft 6 in Weight:: 185 lb BMI: 21.4 Nutrition - 60-Day Assessment Program Goals Nutrition Program Goals Patient has diagnosis of Hyperlipidemia (ICD E78)?: Yes Visit Date of Eval: 09/15/23 Session #:: 28 Cholesterol/Lipids (Other Core Measures) Determine presence & major risk factors that modify LDL goal: Hypertension or hypertensive medication and Age men > 45 years; women >/= 55 years Outcomes/Goals: Pt IDs own risk factors & lifestyle modifications by Session 10, Verbalizes symptoms of angina & response by session 3. and Pt independently manages Intervention/Plan: Instruct on personal lipid levels & lipid goals/NCEP guidelines and Instruct on cholesterol Referral to dietitian:: Yes 30-day Reassessments:: Met Diabetes (Other Core Measures) Diabetes Type: Not Applicable Weight Mgt (Other Care) Height: 6 ft 6 in Weight:: 185 lb BMI: 21.4 Diagnosis Overweight/Obesity BMI> 30% ICD-10 E66: No Diagnosis High BMI/Morbid Obesity BMI> 35% ICD-10 Z68: No Outcomes/Goals: Pt sets, maintains & shows weight loss goal & trend during rehab Intervention/Plan: Instruct on ideal BMI & set weight loss goal w/patient, Assist pt to ID & incorporate diet changes for weight loss by S9 and Encourage goal of using 250-300dcal per session for weight loss 30 day Reassessments:: Met Healthy Eating Habits Will attend diet classes:: Yes Outcomes/Goals:: Consume diet rich in vegs,fruits,whole grain/high fiber,fish,lean meat and Limit sat/trans fats,cholesterol & added salts & sugars Intervention/Plan:: Assess current eating habits 30-day Reassessments:: Met Education Gave educational materials for:: Healthy eating Core - Final Assessment Hypertension Resting Blood Pressure:: 168/84 [place] [employer] Hypertension Guidelines Core - 60-Day Assessment Visit Date of Eval: 09/15/23 Session #:: 28 Medication Compliance Preventative Medication(s):: Aspirin, Ticagrelor/P2Y12 inhibitor, Statin/lipid and Beta asuncion H/O mental health issues: depression, anxiety, or addiction?: Yes Doesn?t believe in the benefits of treatment?: No Believes medications are unnecessary or harmful?: No Has a concern about medication side effects?: No Expresses concern over the cost of medications?: No Outcomes/Goals: Verbalizes medications,desired effect & common side effects @ DC, Pt self-reports following medication regimen and Keeps card in wallet w/medications listed by DC Interventions/plans: Instruct on medication effects & side effects, Review medication list w/patient every two weeks and Instruct importance of taking meds as ordered & assist problem solving 30-day Reassessments:: Met Tobacco Use Tobacco Use: Non-smoker 30-day Reassessments:: Met Hypertension Hypertension Diagnosis:: Hypertension ICD-10 I10 Resting Blood Pressure:: 100/64 Resting Blood Pressure:: 168/84 [place] [employer] Hypertension Guidelines Outcomes/Goals: Able to verbalize/achieve optimal blood pressure <130/80 and Incorporates diet changes & exercise for blood pressure control by DC Interventions/plan: Instruct on optimal blood pressure, hypertension & medications and Instruct on effects of sodium, alcohol, stress, exercise &hypertension 30 day Reassessments:: Met Tobacco Cessation Referral Smoking Cessation Referral:: No Individual Education/Counseling:: No Education Schedule Given:: Yes Psychosocial - 30-Day Assess Target Goals Target Goals Referral to Behavioral Health PS - Interventions: Yes: Attend Stress Management Classes and No: Referral to Behavioral Health if PHQ-9 score >9:, No: Referral to [facility] and No: Referral to Physician if PHQ-9 if score is 5-9: Outcomes/Goals: See list Psychosocial Outcomes/Goals:: ID's personal stressors & 2 strategies to manage stress by discharge Psychosocial - 60-Day Assess VIsit Date of Eval: 09/15/23 Session #:: 28 Not Applicable: Yes History of previous Mental disease:: No Target Goals Target Goals Psychosocial Test Tool Used:: PHQ-9 Questionnaire phq-9 Severity Referral to Behavioral Health PS - Interventions: Yes: Attend Stress Management Classes and No: Referral to Behavioral Health if PHQ-9 score >9:, No: Referral to [facility] and No: Referral to Physician if PHQ-9 if score is 5-9: Outcomes/Goals: See list Psychosocial Outcomes/Goals:: ID's personal stressors & 2 strategies to manage stress by discharge Intervention/Plan: See List Interventions/Plan:: Assess stressors,coping strategies & signs of derpression on admission, Instruct/assist pt to develop coping & personal stress Mgt strategies, Instruct patient to recognize signs & symptoms of depression and Instruct patient to recog 30-day Reassessments: 30 day Reassessments:: Met Psychosocial - 90-Day Assess Target Goals Target Goals Referral to Behavioral Health PS - Interventions: Yes: Attend Stress Management Classes and No: Referral to Behavioral Health if PHQ-9 score >9:, No: Referral to [facility] and No: Referral to Physician if PHQ-9 if score is 5-9: Psychosocial - Final Assessmen Target Goals Target Goals Referral to Behavioral Health PS - Interventions: Yes: Attend Stress Management Classes and No: Referral to Behavioral Health if PHQ-9 score >9:, No: Referral to [facility] and No: Referral to Physician if PHQ-9 if score is 5-9: Nutrition - 90-Day Assessment Weight Mgt (Other Care) Height: 6 ft 6 in Weight:: 185 lb BMI: 21.4 Nutrition - Final Assessment Weight Mgt (Other Care) Height: 6 ft 6 in Weight:: 185 lb BMI: 21.4
[2023-09-15 08:18] VITALS: BP 100/64; BP 168/84; BMI 21.4
== END 2023-10-10 23:59 ==
LOC: CR 09:15
PROVIDERS: PCP Family Medicine; Referring Provider Internal Medicine Cardiovascular Disease; Visit Provider Internal Medicine Cardiovascular Disease
DX: Z95.5 Presence of coronary angioplasty implant and graft (principal); I25.10 Atherosclerotic heart disease of native coronary artery without angina pectoris; I43 Cardiomyopathy in diseases classified elsewhere
CPT/HCPCS: 93798

== ENCOUNTER → 2023-09-18 | Outpatient (CLI) | payer MEDICARE, SELFPAY ==
[2023-09-15 08:18] VITALS: BMI 21.4
[2023-09-18 10:44] LABS: PSA,Total- Diagnostic 1.15 ng/mL (0.0-4.0)
== END | disposition home or self-care (01) ==
LOC: LAB 08:59
PROVIDERS: PCP Family Medicine; Referring Provider Nurse Practitioner; Visit Provider Nurse Practitioner
DX: C61 Malignant neoplasm of prostate (principal)
CPT/HCPCS: 36415; 84153

== ENCOUNTER → 2023-12-31 | Outpatient (CLI) | payer MEDICARE, SELFPAY ==
[2023-12-16 09:46] VITALS: BMI 21.4
--- NOTE | 2023-12-31 10:17 | MRI_ITS ---
STUDY: MRI LEFT SHOULDER REASON FOR EXAM: Male, 63 years old. LT SHOULDER INSTABILITY, PAIN, ADHESIVE CAPSULITIS. TECHNIQUE: Standardized fat and water weighted pulse sequences were obtained in all 3 orthogonal planes. COMPARISON: None. FINDINGS: There is supraspinatus tendinosis with a partial thickness articular surface tear of the anterior distal supraspinatus tendon insertion, overall measuring 5 mm in length (coronal T2 series 6 images 8-9) and 5 mm in width (sagittal T2 series 7 image 19). Normal infraspinatus tendon. Normal subscapularis tendon. Normal teres minor tendon. Normal supraspinatus muscle. Normal infraspinatus muscle. Normal subscapularis muscle. Normal teres minor muscle. Normal glenohumeral articulation. There is mild enthesopathic subcortical edema/cyst formation of the greater tuberosity of the humeral head. Normal biceps labral complex. Normal intracapsular long biceps tendon. There is a small tear of the posterior glenoid labrum (axial PD series 3 image 12). Normal capsulo-ligamentous complex. Normal rotator interval. There is mild hypertrophic acromioclavicular arthrosis. There is a Type I morphology (flat undersurface), with a neutral orientation. There is a small amount of subacromial-subdeltoid bursal fluid. Normal visualized coracohumeral and coracoacromial ligaments. Normal quadrilateral space. Normal axillary space. Normal deltoid muscle. Normal trapezius muscle. MRI/Upper Ext Joint Only(Routine) IMPRESSION: Supraspinatus tendinosis with a 5 x 5 mm partial thickness articular surface tear of the anterior distal supraspinatus tendon insertion. Mild hypertrophic acromioclavicular arthrosis. Mild subacromial-subdeltoid bursitis. Small tear of the posterior glenoid labrum. Electronically Signed: Torres Edmondson MD at 14:34 EDT ,
== END | disposition home or self-care (01) ==
PROVIDERS: PCP Family Medicine; Referring Provider Physician Assistant; Visit Provider Physician Assistant
DX: M75.02 Adhesive capsulitis of left shoulder (principal); M25.312 Other instability, left shoulder; M25.512 Pain in left shoulder
CPT/HCPCS: 73221

== ENCOUNTER → 2024-01-01 | Outpatient (CLI) | payer MEDICARE, SELFPAY ==
[2023-12-16 09:46] VITALS: BMI 21.4
[2024-01-01 11:18] LABS: Absolute Lymphocyte Count 1.65 X10^3/uL (0.83-4.51); Absolute Neutrophil Count 4.3 X10^3/uL (2.0-7.7); Basophil# 0.04 X10^3/uL; Basophil% 0.6 % (0-1); Eosinophil# 0.37 X10^3/uL; Eosinophils% 5.4 % (0-5); Hematocrit 45.6 % (40-54); Hemoglobin 15.1 g/dL (13.0-16.5); Lymphocyte # 1.65 X10^3/ul (0.83-4.51); Mean Corp Hgb Conc 33.1 g/dL (32-36); Mean Corpuscular Hgb 30.8 pg (27.0-32.0); Mean Corpuscular Volume 92.9 fL (80-94); Mean Platelet Vol. 9.6 fl (6.2-12.0); Monocyte# 0.55 X10^3/uL; NRBC Flagged by Analyzer 0 % (0-5); Neutrophil # 4.25 X10^3/uL (2.7-7.7); Neutrophil % 61.7 % (47-70); Platelet Count 145 K/mm3 (150-450); RBC Distribution Width CV 13.2 % (11.6-14.6); RBC Distribution Width SD 44.6 fl (35.1-43.9); Red Blood Count 4.91 M/mm3 (4.6-6.2); White Blood Count 6.9 K/mm3 (4.4-11.0)
[2024-01-01 12:10] LABS: AST(SGOT) 33 U/L (15-37); Alanine Aminotransfer ALT/SGPT 39 U/L (16-61); Albumin, Serum 3.9 g/dL (3.2-5.0); Alkaline Phosphatase 66 U/L (45-117); Anion Gap 8 (5-15); BUN 13 mg/dL (7-18); BUN/Creat Ratio 11.4 RATIO (10-20); Bilirubin, Direct 0.32 mg/dL (0.00-0.30); Calcium,Total 9.2 mg/dL (8.5-10.1); Chloride 106 mmol/L (98-107); Cholesterol 130 mg/dL (200); Creatinine, Serum 1.14 mg/dL (0.70-1.30); EST Glomerular Filtration Rate 69 mL/min (>60); Est Glom Filt Rate - Afr Amer 83 mL/min (>60); Globulin 3.5 g/dL (2.2-4.2); Glucose 96 mg/dL (74-106); High Density Lipoprotein 57 mg/dL; Magnesium 2.1 mg/dL (1.6-2.6); Potassium 4.2 mmol/L (3.5-5.1); Protein, Total 7.4 g/dL (6.4-8.2); Sodium Level 140 mmol/L (136-145); Triglycerides 59 mg/dL; Very Low Density Lipoprotein 12 mg/dL (5-40)
== END | disposition home or self-care (01) ==
LOC: LAB 10:58
PROVIDERS: PCP Family Medicine; Referring Provider Nurse Practitioner Gerontology; Visit Provider Nurse Practitioner Gerontology
DX: I48.0 Paroxysmal atrial fibrillation (principal); E78.00 Pure hypercholesterolemia, unspecified
CPT/HCPCS: 36415; 80048; 80061; 80076; 83735; 84443; 85025

== ENCOUNTER → 2024-01-05 | Outpatient (CLI) | payer MEDICARE, SELFPAY ==
[2023-12-16 09:46] VITALS: BMI 21.4
== END | disposition home or self-care (01) ==
LOC: PSN 07:03
PROVIDERS: PCP Family Medicine; Referring Provider Nurse Practitioner Gerontology; Visit Provider Nurse Practitioner Gerontology
DX: I48.0 Paroxysmal atrial fibrillation (principal)
CPT/HCPCS: 93225; 93226

== ENCOUNTER 2024-01-08 08:52 | Emergency (ER) | payer MEDICARE, SELFPAY ==
[2023-12-16 09:46] VITALS: BMI 21.4
[2024-01-08 08:53] VITALS: BP 114/82; PULSE 60; RESP 14; TEMP 36.8; O2SAT 97; BMI 24.4
--- NOTE | 2024-01-08 09:34 | EKG12_ITS ---
Test Reason : AFIB Blood Pressure : / mmHG Vent. Rate : 089 BPM Atrial Rate : 000 BPM P-R Int : 000 ms QRS Dur : 082 ms QT Int : 320 ms P-R-T Axes : 000 062 061 degrees QTc Int : 389 ms Atrial fibrillation with premature ventricular or aberrantly conducted complexes Abnormal ECG Confirmed by Johnny Cantu ([id number]), rewrite editor RAS NARAYANAN ([id number]) on 01/09/2024 8:16:41 AM Referred By: VI Confirmed By:Johnny Cantu
[2024-01-08 09:45] LABS: Absolute Lymphocyte Count 1.27 X10^3/uL (0.83-4.51); Absolute Neutrophil Count 7.5 X10^3/uL (2.0-7.7); Basophil# 0.02 X10^3/uL; Basophil% 0.2 % (0-1); Hematocrit 46.3 % (40-54); Hemoglobin 15.7 g/dL (13.0-16.5); Lymphocyte # 1.27 X10^3/ul (0.83-4.51); Lymphocyte % 13.5 % (19-41); Mean Corp Hgb Conc 33.9 g/dL (32-36); Mean Corpuscular Hgb 31.2 pg (27.0-32.0); Mean Corpuscular Volume 91.9 fL (80-94); Mean Platelet Vol. 9.7 fl (6.2-12.0); Monocyte# 0.58 X10^3/uL; Monocyte% 6.2 % (0-10); NRBC Flagged by Analyzer 0 % (0-5); Neutrophil # 7.52 X10^3/uL (2.7-7.7); Neutrophil % 79.7 % (47-70); Platelet Count 173 K/mm3 (150-450); RBC Distribution Width CV 13.1 % (11.6-14.6); RBC Distribution Width SD 44.3 fl (35.1-43.9); Red Blood Count 5.04 M/mm3 (4.6-6.2); White Blood Count 9.4 K/mm3 (4.4-11.0)
--- NOTE | 2024-01-08 10:00 | RAD_ITS ---
STUDY: X-RAY CHEST REASON FOR EXAM: Male, 63 years old. Palpitations. Coronary artery disease. TECHNIQUE: Single AP portable view of the chest. COMPARISON: Comparison is made with prior study of March 24, 2023. FINDINGS: EKG electrodes are seen. The lungs are clear and expanded. There is no demonstrated pleural abnormality. Normal size heart. Normal mediastinum and martin. Normal visualized pulmonary arteries. Normal visualized aortic arch and descending thoracic aorta. There are degenerative changes of the visualized thoracic spine. Normal visualized ribs, clavicles, and shoulders. There is no demonstrated abnormality of the visualized soft tissue structures of the upper abdomen. RAD/Chest 1 View (Portable) IMPRESSION: Normal x-ray examination of the chest. Electronically Signed: Edu Clayton MD at 10:18 EDT ,
[2024-01-08 10:13] LABS: Anion Gap 5 (5-15); BUN 20 mg/dL (7-18); BUN/Creat Ratio 16.5 RATIO (10-20); Calcium,Total 9.5 mg/dL (8.5-10.1); Chloride 108 mmol/L (98-107); Creatinine, Serum 1.21 mg/dL (0.70-1.30); EST Glomerular Filtration Rate 64 mL/min (>60); Est Glom Filt Rate - Afr Amer 78 mL/min (>60); Estimated Creatinine Clearance 68.59 ml/min; Glucose 114 mg/dL (74-106); Magnesium 2.2 mg/dL (1.6-2.6); Potassium 4.1 mmol/L (3.5-5.1); Sodium Level 139 mmol/L (136-145); Thyroid Stim Hormone (TSH) 0.783 uIU/mL (0.358-3.740); Troponin-I HS 15 pg/mL (3.0-78.0)
--- NOTE | 2024-01-08 10:46 | EDS_ITS ---
HPI History of Present Illness Chief Complaint: Palpitations Informant: patient Narrative Narrative: 63-year-old male history of coronary artery disease and paroxysmal atrial fibrillation presenting with atrial fibrillation. Patient states that he had cardiac stents placed last year. He follows locally with cardiology with [place]. He states that he just turned in a Holter monitor as he has been having increased episodes of what he feels is A-fib. He states that last night he felt his heart racing and believes he was in A-fib. This morning took his morning medications including metoprolol still feels his heart beating irregular just not as fast. Patient is not anticoagulated however he does take Brilinta and aspirin. Per his last cardiology note his [id number] score was 1. Patient denies any current chest pain or shortness of breath. [facility] Medical History Arteriosclerotic coronary artery disease NSTEMI (non-ST elevated myocardial infarction) Cancer Kidney stones GERD (gastroesophageal reflux disease) Irregular heart beat Atrial fibrillation DVT (deep venous thrombosis) Encounter for screening for COVID-19 URI (upper respiratory infection) Pure hypercholesterolemia Paroxysmal atrial fibrillation Cardiomyopathy in other diseases classified elsewhere Family history of hypertension Hyperlipidemia Acute embolism and thrombosis of deep vein of distal lower extremity Palpitations Home Medications ?Medication ?Instructions ?Recorded ?Last Taken ?Type diphenhydramine HCl 50 mg capsule 50 mg PO QHS 12/26/21 Unknown History metoprolol tartrate 25 mg tablet 25 mg PO BID #180 tabs 03/18/23 Unknown Rx aspirin 81 mg tablet,delayed 81 mg PO BREAKFAST #90 tabs 03/27/23 Unknown Rx release ticagrelor 90 mg tablet (Brilinta) 90 mg PO BID 90 days #180 tabs 04/22/23 Unknown Rx atorvastatin 20 mg tablet 20 mg PO .QOD #15 tabs 01/01/24 Unknown Rx coenzyme Q10 100 mg capsule 100 mg PO DAILY #30 caps 01/01/24 Unknown Rx (CoQ-10) Allergy/AdvReac Type Severity Reaction Status Date / Time No Known Allergies Allergy Verified 01/08/24 08:54 Family History Father Martha Gehrig disease Mother Myocardial infarction CAD (coronary artery disease) Brother Myocardial infarction, Onset Age: 60 Hypertension Multiple sclerosis Other Family history of hypertension Surgical History Stented coronary artery (03/26/23) History of appendectomy History of left heart catheterization (LHC) Presence of IVC filter Social History household members: spouse housing: house Smoking Status: Never smoker alcohol intake: current alcohol intake frequency: a few times a week Alcohol type: beer substance use type: does not use caffeine: Yes Type: coffee Number of servings: 2 what type of physical activity do you participate in: none seatbelt use: always do you feel safe at home: Yes ROS ROS ED Constitutional Constitutional ED: Denies chills, fever(s) or weight loss Eyes Eyes: Denies change in vision or diplopia ENT ENT ED: Denies ear pain, rhinorrhea or sore throat Cardiovascular Cardiovascular: Reports palpitations and racing heartbeat; Denies chest pain or orthopnea Respiratory/Chest Respiratory/Chest: Denies cough, dyspnea or orthopnea Gastrointestinal Gastrointestinal: Denies abdominal pain, diarrhea, nausea or vomiting Genitourinary Genitourinary ED: Denies dysuria, hematuria or urinary frequency Musculoskeletal Musculoskeletal: Denies arthralgias or myalgias Integumentary Denies abscess or rash Neurologic Neurologic: Denies headache(s) or weakness Psychiatric Psychiatric: Denies anxiety, depression, suicidal ideation or suicidal thoughts Endocrine Endocrinology: Denies polydipsia, polyphagia or polyuria Allergic/Immunologic Allergic/Immunologic ED: Denies mouth swelling, tongue swelling or urticaria EXAM Physical Exam Const Vital Signs: 01/08/24 08:53 01/08/24 10:53 01/08/24 12:00 Temperature 98.2 F 98 F Temperature Source Temporal Pulse Rate 60 74 81 Respiratory Rate 14 16 18 Blood Pressure 114/82 H 111/79 104/74 Blood Pressure Mean 92 89 84 Pulse Ox 97 99 100 Oxygen Delivery Method Room Air Positive well nourished and well developed General Appearance ED: well developed HEENT Reports normocephalic, head/scalp atraumatic and moist mucous membranes Eyes PERRL and EOMs intact bilaterally Neck no lymphadenopathy, supple and no JVD Resp normal respiratory effort and clear to auscultation bilaterally Cardio no murmurs Rhythm: abnormal rhythm irregularly irregular GI normal to inspection, nondistended, normoactive bowel sounds and non-tender Palpation: soft Back/Spine no CVA tenderness and normal ROM Extremity normal to inspection General Extremety ED: Negative for edema General Extremity: Negative for edema Neuro oriented x3 and CN's II-XII intact bilaterally Sensorium / Orientation: alert Motor Exam: strength 5/5 throughout Psych mental status grossly normal Mood & Affect: Negative for depressed or tearful Skin no rashes or lesions noted and no wounds MDM MDM MDM Narrative Medical decision making narrative: Differential diagnosis includes paroxysmal atrial fibrillation with rapid ventricular response, acute coronary syndrome, electrolyte abnormality such as hypokalemia hypomagnesemia, thyroid disorder, anemia, congestive heart failure, valvular disorder EKG confirms atrial fibrillation at a rate of 89 bpm. PVC noted. Hemoglobin 15.7 with a white count of 9.4. Troponin is 15 TSH is normal electrolytes are within normal limits including potassium sodium magnesium. Glucose of 114. My independent interpretation of the chest x-ray is no acute process specifically no evidence of CHF. Patient has been in A-fib with rate control here in the department. I spoke with Dr. Cantu from cardiology. He would like the patient to follow-up in the office. He is to call the office today get a stress test arranged. Dr. Canut will review the Holter monitor and his previous echocardiogram. They will need to meet in his office to discuss antiarrhythmic control. In the interim should he develop rapid ventricular response he can take an extra metoprolol and if need be return to the emergency room if not controlled. Patient is comfortable with this plan and is understanding. History & Record Review Discussion w/independent historian: Patient Lab Data Attestation: I reviewed the patient's lab results. Labs: Laboratory Results - last 24 hr 01/08/24 09:06 WBC 9.4 RBC 5.04 Hgb 15.7 Hct 46.3 MCV 91.9 MCH 31.2 MCHC 33.9 RDW Std Deviation 44.3 H RDW Coeff of Lance 13.1 Plt Count 173 MPV 9.7 Immature Gran % (Auto) 0.400 Neut % (Auto) 79.7 H Lymph % (Auto) 13.5 L [place] % (Auto) 6.2 Eos % (Auto) 0.0 Baso % (Auto) 0.2 Absolute Neuts (auto) 7.5 Absolute Lymphs (auto) 1.27 Nucleated RBC % 0 Sodium 139 Potassium 4.1 Chloride 108 H Carbon Dioxide 26.0 Anion Gap 5 BUN 20 H Creatinine 1.21 Estim Creat Clear Calc 68.59 Est GFR (MDRD) Af Amer 78 Est GFR (MDRD) Non-Af 64 BUN/Creatinine Ratio 16.5 Glucose 114 H Calcium 9.5 Magnesium 2.2 Troponin I High Sens 15 TSH 0.783 Radiography Diagnostic Testing: Clinical Impression(s) from Imaging Studies Chest X-Ray 01/08/24 10:00 IMPRESSION: Normal x-ray examination of the chest. Electronically Signed: Edu Clayton MD at 10:18 EDT , Management Discussion w/another healthcare provider: Lead Software Qa Engineer (Dr. Cantu (cardiology)) Discharge Plan Triage Chief Complaint: Palpitations ED Provider: Damion Cuellar Dx/Rx/DC Orders Clinical Impression: Paroxysmal atrial fibrillation, Arteriosclerotic coronary artery disease Instructions: ED AFIB Prescriptions: No Action diphenhydramine HCl 50 mg capsule 50 mg PO QHS Brilinta 90 mg tablet 90 mg PO BID 90 Days Qty: 180 3RF coenzyme Q10 [CoQ-10] 100 mg capsule 100 mg PO DAILY Qty: 30 0RF atorvastatin 20 mg tablet 20 mg PO .QOD Qty: 15 3RF aspirin 81 mg Tablet,Delayed Release (Dr/Ec) 81 mg PO BREAKFAST Qty: 90 0RF metoprolol tartrate 25 mg tablet 25 mg PO BID Qty: 180 3RF Primary Care Provider: Shan Desai Referrals: Shan Desai MD [Primary Care Provider] - Activity Restrictions/Additional Instructions: Cardiology's recommendations today are to get a stress test scheduled to see Dr. Cantu in the office to discuss choices of antiarrhythmic medications. If you find that your heart is racing greater than 100 bpm the recommendation is to take an extra metoprolol. If this does not help you are welcome to return to the emergency department. Please call Dr. Cantu's office today. Print Language: Icelandic Disposition Disposition: Home, Self Care Discharge Date/Time: 01/08/24 12:14
[2024-01-08 10:53] VITALS: BP 111/79; PULSE 74; RESP 16; O2SAT 99
[2024-01-08 12:00] VITALS: BP 104/74; PULSE 81; RESP 18; TEMP 36.6; O2SAT 100
== END 2024-01-08 12:14 | disposition home or self-care (01) ==
PROVIDERS: Emergency Provider Emergency Medicine; PCP Family Medicine; Visit Provider Emergency Medicine
DX: I48.0 Paroxysmal atrial fibrillation (principal); I42.9 Cardiomyopathy, unspecified; I25.10 Atherosclerotic heart disease of native coronary artery without angina pectoris; E78.00 Pure hypercholesterolemia, unspecified; I25.2 Old myocardial infarction; Z79.82 Long term (current) use of aspirin; Z79.02 Long term (current) use of antithrombotics/antiplatelets; Z95.5 Presence of coronary angioplasty implant and graft
CPT/HCPCS: 71045; 80048; 83735; 84443; 84484; 85025; 93005; 99283; A4216

== ENCOUNTER → 2024-01-21 | Outpatient (CLI) | payer MEDICARE, SELFPAY ==
[2023-12-16 09:46] VITALS: BMI 21.4
--- NOTE | 2024-01-21 10:45 | STRESSREP ---
Stress Test Report Exercise myocardial perfusion stress test. 63-year-old man with a history of paroxysmal atrial fibrillation coronary artery disease Stress protocol: Resting EKG demonstrates normal sinus rhythm with a rate of 57 bpm resting blood pressure is 120/80 mmHg. The patient exercised according to the regular Long protocol for a total duration of 9 minutes and 30 seconds attaining a maximum heart rate of 136 bpm which was 86% of maximum predicted heart rate; the maximum workload was 11.7 metabolic equivalents. At rest there were no ST or T wave changes noted to suggest ischemia and at peak exercise upsloping ST changes only were noted which did not meet the criteria for ischemia. No clinical angina was noted the test was terminated due to the target heart rate being achieved/fatigue. The peak blood pressure was 142/82 mmHg. Rate-pressure product was 16,300. Myocardial perfusion protocol. 11.9 mCi of technetium 99m sestamibi was injected at rest. The patient exercised according to regular Long protocol for total duration of 9 minutes and 36 and at peak exercise 34.7 mCi of technetium 99m sestamibi was injected stress images were obtained stress and rest images were reconstructed in comparing the short axis vertical long and horizontal long axis. Gated images were also obtained. Perfusion SPECT analysis: Review of the stress images demonstrate normal uptake of tracer noted in all areas of the myocardium. The resting images similarly demonstrate normal uptake of tracer noted in all areas of the myocardium. No areas of reversibility are noted to suggest ischemia no previous infarct was noted. Gated SPECT analysis: The gated ejection fraction is 61%. Conclusion: Normal exercise myocardial perfusion stress test at a high workload Preserved ejection fraction.
== END | disposition home or self-care (01) ==
PROVIDERS: PCP Family Medicine; Referring Provider Internal Medicine Cardiovascular Disease; Visit Provider Internal Medicine Cardiovascular Disease
DX: I48.0 Paroxysmal atrial fibrillation (principal); I25.10 Atherosclerotic heart disease of native coronary artery without angina pectoris
CPT/HCPCS: 78452; 93017; A9500; A4216

== ENCOUNTER 2024-02-09 09:00 | Outpatient (RCR) | payer MEDICARE, SELFPAY ==
[2023-12-16 09:46] VITALS: BMI 21.4
--- NOTE | 2023-12-24 13:11 | HP.PTEVAL_ITS ---
Patient's Visit Information Visit Information Visit Information: JERAMY WOOD is a 63 year old M referred to Physical Therapy by Kar Prieto PA-C with a diagnosis of L shoulder adhesive capsulitis. Date of Evaluation: 12/24/23 Physical Therapist: Tacho Holloway, PT, ATC Visit Plan Frequency: 2-3x /Week Duration: 4-6 Weeks Plan: L shoulder rot cuff strengthening, scap stab ex's, UBE, and HEP. Continue after MRI Subjective Subjective: Pt reports he has had L shoulder pain for approximately 10 months. Pt reports he has been through a lot of health issues over this span, including a heart attack. Pt reports he has been working out and trying to stay in shape, but notices L shoulder pain with most ex's, especially push ups. Pt has had xrays which revealed space narrowing in his L shoulder. Pt is scheduled to get an MRI next week. Pt reports he is R hand dominant. Pt reports sleep difficulty at this time secondary to pain. No PMHx of R shoulder complications prior to this episode. Pt reports his major limitation at this time is performining any type of activity that requires him to lift is L UE over his head, or out to his side. Pt notes the pain radiates into his L bicep distribution. 3/10 pain in L shoulder while sitting here at rest, 9/10 pain when pain is at its worst. Pain L shoulder: Pain Intensity (Out of 10): 3 Pain Intensity Range: 9 Objective Objective: Neuro: B UE sensation is WNL to light touch. B biceps reflex= 2/3 Palpation: Pt is sore throughout the distribution of the LHB tendon. Pt is also sore on the anterior aspect of shoulder near labrum. No obvious deformity ROM: R shoulder flex= 145, abd= 145, ER= 65, IR= WNL; L shoulder flex= 125, abd= 45, ER= 45, IR= WNL MMT: R shoulder flex= 27, abd= 31, ER=27 , IR= 32 #F; L shoulder flex= 9, abd= 8, ER= 14, IR= 24 Special testing: Pos tests for labral impingement and LHB tendonopathy Balance/Special Test Scores Quick DASH Score: 27.2725 Goals Goal 1:: Decrease L shoulder pain x 50% to aid with sleep Goal Time Frame: 4-6 Weeks Goal 2:: Increase L shoulder flex and abd ROM x 30 degrees to aid with overhead lifting Goal Time Frame: 4-6 Weeks Goal 3:: Increase L shoulder strength x 10#F to aid with return to exercise Goal Time Frame: 4-6 Weeks Goal 4:: I with HEP Goal Time Frame: 4-6 Weeks Rehabilitation Potential Physical Therapy Diagnosis: Pt has L shoulder pain, weakness, and limited ROM secondary to L shoulder internal derrangement Rehabilitation Potential: Good Anticipated Interventions Patient/Client Instruction: Educate patient on: Condition and Plan of Care For the Purpose of:: To improve self management Therapeutic Exercise to Include: Strength training, Endurance training, Postural training, Passive ROM, Active ROM and Scapular Strength/Stabilization For the Purpose of:: To decrease pain, To increase ROM and To improve muscle performance and motor function Text: Thank you for the opportunity to evaluate your patient. For Medicare and Medicare HMO plans, please review the plan of care and approve it. It will need to be FAXED BACK to us at [phone] for Medicare purposes. For Medicare only, by signing this I certify the plan of care. Please let me know if there are questions or concerns regarding this plan of care. Physician Signature : Date:
--- NOTE | 2024-02-09 09:27 | HP.PTDCSUM ---
Discharge Summary D/C summary: It has been my pleasure to treat JERAMY WOOD referred by Kar Prieto PA-C, with the diagnosis of L shoulder adhesive capsulitis for a total of 6 visit(s). Discharge Date: Please see the following information for a summary of their discharge status. Subjective Subjective: L shoulder pain has remained a consistent 07/19. No overall improvements Pain L shoulder: Pain Intensity (Out of 10): 3 Overall Improvement % Improvement: 0 Objective Objective/Function: L shoulder pain is 3/10 L shoulder MMT: flex= 12, abd= 21, ER= 9, IR= 22 #F L shoulder ROM: flex= 120, abd= 115 degrees\ Pt is I with HEP Pt remains limited by pain at this time Goals Goal 1:: Decrease L shoulder pain x 50% to aid with sleep Goal Progress: Not Progressing Goal 2:: Increase L shoulder flex and abd ROM x 30 degrees to aid with overhead lifting Goal Progress: Not Progressing Goal 3:: Increase L shoulder strength x 10#F to aid with return to exercise Goal Progress: Not Progressing Goal 4:: I with HEP Goal Progress: Goal Met Plan Plan: Discontinue, RTD D/C Information d/c sentence: If there are questions or concerns regarding this patient's physical therapy, please feel free to call me at [phone]. Thank you for the referral of this patient. Sincerely, Tacho Holloway, PT, ATC Balance/Gait/Functional tests Balance/Special Test Scores Quick DASH Score: 13.6350 Improvement % Improvement: 0
== END 2024-02-09 09:40 | disposition home or self-care (01) ==
LOC: PT 09:00
PROVIDERS: PCP Family Medicine; Referring Provider Physician Assistant; Visit Provider Physician Assistant
DX: M75.02 Adhesive capsulitis of left shoulder (principal); M25.312 Other instability, left shoulder
CPT/HCPCS: 97110; 97161; 97530

== ENCOUNTER → 2024-03-18 | Outpatient (CLI) | payer MEDICARE, SELFPAY ==
[2023-12-16 09:46] VITALS: BMI 21.4
[2024-03-18 11:06] LABS: PSA,Total- Diagnostic 0.89 ng/mL (0.0-4.0)
== END | disposition home or self-care (01) ==
LOC: LAB 10:02
PROVIDERS: PCP Family Medicine; Referring Provider Urology; Visit Provider Urology
DX: N40.1 Benign prostatic hyperplasia with lower urinary tract symptoms (principal)
CPT/HCPCS: 36415; 84153

== ENCOUNTER 2024-10-17 11:34 | Emergency (ER) | payer MEDICARE, SELFPAY ==
[2023-12-16 09:46] VITALS: BMI 21.4
[2024-10-17] VITALS (8 sets, daily range): BP systolic 106–119; BP diastolic 61–91; PULSE 35–120; RESP 12–18; TEMP 36.5–36.8; O2SAT 96–99; BMI 25.6
--- NOTE | 2024-10-17 11:51 | EKG12_ITS ---
Test Reason : CP Blood Pressure : */* mmHG Vent. Rate : 116 BPM Atrial Rate : * BPM P-R Int : * ms QRS Dur : 80 ms QT Int : 314 ms P-R-T Axes : * 64 54 degrees QTcB Int : 436 ms Atrial fibrillation with rapid ventricular response with premature ventricular or aberrantly conducted complexes Abnormal ECG Confirmed by Johnny Cantu ([id number]), mapping editor RAS NARAYANAN ([id number]) on 10/18/2024 9:37:26 AM Referred By: Nancy Nur Confirmed By: Johnny Cantu
--- NOTE | 2024-10-17 12:00 | RAD_ITS ---
PROCEDURE: CHEST PA AND LATERAL 10/17/2024 REASON FOR EXAM: CHEST PAIN TECHNIQUE: Frontal and lateral views of the chest. COMPARISON: CT chest 03/25/2023 FINDINGS: Hardware: None Heart: The heart size is normal. Mediastinum: The mediastinal contour is unremarkable. Lungs: No focal consolidation. No pneumothorax. No pleural effusion. Bones: The bones are unremarkable. RAD/Chest PA and Lateral IMPRESSION: NO ACUTE FINDINGS. Reading Location: [facility]
[2024-10-17 12:05] LABS: Absolute Lymphocyte Count 1.75 X10^3/uL (0.83-4.51); Absolute Neutrophil Count 2.5 X10^3/uL (2.0-7.7); Basophil# 0.03 X10^3/uL; Basophil% 0.6 % (0-1); Eosinophil# 0.27 X10^3/uL; Eosinophils% 5.4 % (0-5); Hematocrit 43.5 % (40-54); Hemoglobin 15.2 g/dL (13.0-16.5); Lymphocyte # 1.75 X10^3/ul (0.83-4.51); Lymphocyte % 35.3 % (19-41); Mean Corp Hgb Conc 34.9 g/dL (32-36); Mean Corpuscular Hgb 31.4 pg (27.0-32.0); Mean Corpuscular Volume 89.9 fL (80-94); Mean Platelet Vol. 9.6 fl (6.2-12.0); Monocyte# 0.39 X10^3/uL; Monocyte% 7.9 % (0-10); NRBC Flagged by Analyzer 0 % (0-5); Neutrophil # 2.51 X10^3/uL (2.7-7.7); Neutrophil % 50.6 % (47-70); POSITIVE COUNT YES; Platelet Count 124 K/mm3 (150-450); RBC Distribution Width SD 42.5 fl (35.1-43.9); Red Blood Count 4.84 M/mm3 (4.6-6.2)
[2024-10-17 12:14] LABS: Prothrombin Time (Protime)PT. 12.9 SECONDS (11.7-14.9)
--- NOTE | 2024-10-17 12:15 | ED.RN ---
THIS NURSE WAS IN PT ROOM OBTAINED IV ACCESS WHEN DANTE FROM RESPIRATORY WAS DOING PT EKG. THIS NURSE AND DANTE FROM RESPIRATORY WITNESS PT TAKING A PICTURE OF EKG RHYTHM AND MACHINE. THIS NURSE AND RESPIRATORY THERAPIST INFORMED PT SHE IS NOT ALLOWED TO DO THAT. PT RESPONDS OOPS AND WALKS AWAY. WILL CONTINUE TO MONITOR.
[2024-10-17 12:25] LABS: Magnesium 1.8 mg/dL (1.5-2.2); Thyroid Stim Hormone (TSH) 0.789 uIU/mL (0.300-4.200); Troponin T High Sensitivity 8 ng/L (<=22)
--- OUTSIDE RECORDS SUMMARY | 2024-10-17 12:34 | XMS RPT_ITS | CCD ---
[facility] Providers Care Liner Worker Name Role Phone Abdullahi Brennan Unavailable Unavailable Abdullahi Brennan Unavailable Unavailable Abdullahi Brennan Unavailable Unavailable Jeremy Garcias MD(Historical) Unavailable Shan Christianson MD Primary Care Provider Shan Christianson MD Primary Care Provider Care Physician, No Primary Referring Provider Un available Dr. Hussein Meyer Attending Provider ROGER Ryan Primary Care Provider Dr. Asif Ford Emergency Provider Care Physician, No Primary Primary Care Provider Unavailable Dr. Kevin Paulino Admit Provider Dr. Kevin Paulino Attending Provider Dr. Kevin Paulino Other Provider Dr. Esteban Taylor Attending Provider Unavailable Dr. Esteban Taylor Other Provider Unavailable Dr. Jeremy Anguiano Other Provider Dr. Shan Christianson Primary Care Provider Dr. Ann Espino Other Provider Dr. Asif Ford Emergency Provider Care Physician, No Primary Primary Care Provider Unavailable Dr. Kevin Paulino Admit Provider Dr. Kevin Paulino Attending Provider Dr. Kevin Paulino Other Provider Dr. Shan Christianson Primary Care Provider Dr. Fabio Johnson Attending Provider Dr. Kevin Paulino Referring Provider Dr. Esteban Taylor Attending Provider Unavailable Dr. Esteban Taylor Other Provider Unavailable Dr. Jeremy Anguiano Other Provider Dr. Ann Espino Other Provider Dr. Keagan Cheney Emergency Provider Dr. Timoteo Gee Admit Provider Dr. Timoteo Gee Attending Provider Dr. Timoteo Gee Other Provider Dr. Mirna Shukla Attending Provider Dr. Mirna Shukla Other Provider Dr. Rickey Jama Other Provider Jeremy Garcias MD(Historical) Unavailable Shan Christianson MD Primary Care Provider Dr. Asif Ford Emergency Provider Care Physician, No Primary Primary Care Provider Unavailable Dr. Kevin Paulino Admit Provider Dr. Kevin Paulino Attending Provider Dr. Kevin Paulino Other Provider Dr. Shan Christianson Primary Care Provider Dr. Shan Christianson Primary Care Provider Dr. Shan Christianson Referring Provider Starla DURAN, PA Yeni Martinez Attending Provider MD Nathanael Dunne Emergency Provider Dr. Mary Ellen Edmondson Admit Provider Dr. Mary Ellen Edmondson Attending Provider Dr. Mary Ellen Edmondson Other Provider Dr. Darin Alexander Attending Provider Dr. Darin Alexander Other Provider Dr. Esteban Taylor Attending Provider Unavailable Dr. Esteban Taylor Other Provider Unavailable Dr. Claudia Johnson Other Provider [facility] FRONT END WEB DESIGNER, FRONT END WEB DESIGNER-C Markus Brunner Attending Provider Dr. Johnny Cantu Attending Provider Dr. Shan Christianson Primary Care Provider Dr. Shan Christianson Referring Provider Dr. Shan Christianson Primary Care Provider Meghan, Dr. Torrez Referring Provider [facility] FRONT END WEB DESIGNER, FRONT END WEB DESIGNER-C Markus Brunner Attending Provider Dr. Johnny Cantu Attending Provider ROGER Gunn Attending Provider Shan Christianson MD Primary Care Provider Dr. Shan Christianson Primary Care Provider Dr. Shan Christianson Referring Provider Shan Christianson MD Primary Care Provider Jared LABORER STORES.MICHAEL, Karthik Unavailable Mayuri Collins PA-C Unavailable SHAN CHRISTIANSON Referring Unavailable MEGHAN, SHAN A Primary Care Unavailable KARTHIK WYLIE Attending Unavailable MEGHAN, SHAN A Primary Care Unavailable KARTHIK WYLIE Referring Unavailable MEGHAN, SHAN A Primary Care Unavailable MAYURI COLLINS Attending Unavailable MEGHAN, SHAN A Primary Care Unavailable MAYURI COLLINS Referring Unavailable MEGHAN, SHAN A Primary Care Unavailable MEGHAN, SHAN A Primary Care Unavailable MEGHANSHAN BARDALES A Attending Unavailable MAYURI COLLINS Referring Unavailable KARTHIK WYLIE Attending Unavailable MEGHAN, SHAN A Primary Care Unavailable MEGHAN, SHAN A Primary Care Unavailable MEGHAN, SHAN A Primary Care Unavailable MEGHAN, SHAN A Attending Unavailable Johnny Cantu Referring Unavailable Meghan, Shan Primary Care Unavailable Johnny Cantu Attending Unavailable Johnny Cantu Attending Unavailable Johnny Cantu Referring Unavailable Meghan, Shan Primary Care Unavailable Rickey Jama Referring Unavailable Rickey Jama Attending Unavailable Meghan, Shan Primary Care Unavailable Rickey Jama Attending Unavailable Meghan, Shan Primary Care Unavailable Johnny Cantu Referring Unavailable Meghan, Shan Primary Care Unavailable Johnny Cantu Attending Unavailable Johnny Cantu Attending Unavailable Johnny Cantu Referring Unavailable Meghan, Shan Primary Care Unavailable Ayana Salomon Referring Unavailable ArpAyana Attending Unavailable Meghan, Shan Primary Care Unavailable Meghan, Shan Primary Care Unavailable Kar Harmon Referring Unavailable Kar Harmon Attending Unavailable Meghan, Shna Primary Care Unavailable Mahogany Vera NP Referring Unavailable Johnny Cantu Attending Unavailable Johnny Cantu Consulting Unavailable Alondra, Johnny Referring Unavailable Meghan, Shan Primary Care Unavailable Fabio Johnson Attending Unavailable Damion Cuellar [facility] Meghan, Shan Primary Care Unavailable Kar Harmon Referring Unavailable Kar Harmon Attending Unavailable Meghan, Shan Primary Care Unavailable Shay WILLINGHAM, Mahogany Attending Unavailable Meghan, Shan Referring Unavailable Meghan, Shan Primary Care Unavailable Meghan, Shan Referring Unavailable [facility] Cantu [facility] Yeni Gunn Attending Unavail able Meghan, Shan Referring Unavailable Meghan, Shan Primary Care Unavailable Meghan, Shan Referring Unavailable Adalid Ambrocio Attending Unavailable [facility] Unavailable Shay WILLINGHAM, Mahogany Referring Unavailable Shay WILLINGHAM, Mahogany Attending Unavailable [facility] Unavailable Shay FRONT END WEB DESIGNER, Mahogany Referring Unavailable Shay FRONT END WEB DESIGNER, Mahogany Attending Unavailable Johnny Cantu Referring Unavailable Meghan, Shan Primary Care Unavailable Johnny Cantu Attending Unavailable Johnny Cantu Attending Unavailable Johnny Cantu [facility] Unavailable Markus Mayorag NP Referring Unavailable Markus Mayorga NP Attending [facility] Unavailable Allergies Allergy Classification Reported Allergen(s) Allergy Type Date of Onset Reaction(s) Facility (19 sources) atorvastatin; Translations: [ATORVASTATIN] Drug Allergy 10-29-2023 Myalgia [facility] Medications Current Medications Medication Drug Class(es) Dates Sig (Normalized) Sig (Original) amoxicillin 875 mg oral tablet (1 source) Penicillin-class Antibacterial Start: 08-29-2023 take 875 mg by mouth twice daily Amoxicillin Active 875 MG PO TWICE A DAY August 29, 2023 12:00am aspirin 81 mg oral tablet (20 sources) Nonsteroidal Anti-inflammatory Drug Start: 03-27-2023 take 1 capsule by mouth once daily aspirin 81 mg cap Take 81 mg by mouth once daily. 03/27/2023 Active Start: 03-27-2023 take 81 mg by mouth at break st Aspirin Active 81 MG PO WITH BREAKFAST March 27, 2023 1:00am Start: 10-04-2015 End: 02-13-2022 take 81 mg by mouth once daily Aspirin Discontinued 81 MG PO DAILY@0800 October 04, 2015 12:00am February 13, 2022 10:04am Start: 10-12-2010 take 1 tablet by lovely th once daily ASPIRIN 81 MG TABS One tablet by mouth daily ASPIRIN [id number] Ashtyn Martinez Joel Start: 10-12-2010 take 1 tablet by lovely th once daily ASPIRIN 81 MG TABS One tablet by mouth daily ASPIRIN [id number] Ashtyn Martinez Joel Start: 10-12-2010 End: 01-02-2023 take 1 tablet by mouth once daily ASPIRIN EC 81 MG TBEC One tablet by mouth daily ASPIRIN [id number] Yeni Cha PA-C Comment on above: 1 tablet daily Take 81 mg by mouth once daily. COMPOUNDED PRESCRIPTION (20 sources) Start: 2016 COMPOUNDED PRESCRIPTION OTC sleep aid Diphenhydramine 50 mg 0 03/10/2017 Active Comment on above: OTC sleep aid Diphen hydramine 50 mg diclofenac sodium 0.01 mg/mg topical gel (20 sources) Nonsteroidal Anti-inflammatory Drug Start: 2023 End: 2023 apply 4 g topically four times daily diclofenac (VOLTAREN ARTHRITIS PAIN) 1 % topical gel Apply 4 g to affected area four times daily. 50 g 5 10/08/2023 Active diphenhydrAMINE hydrochloride 50 mg oral capsule (20 sources) Histamine-1 Receptor Antagonist Start: 2021 take 50 mg by mouth at bedtime Diphenhydramine Hcl Active 50 MG PO AT BEDTIME December 26, 2021 12:00am Start: 05-27-2018 End: 11-29-2019 take 50 mg by mouth at bedtime Diphenhydramine Hcl Dis continued 50 MG PO AT BEDTIME May 27, 2018 1:00am November 29, 2019 9:29am levoFLOXacin 500 mg oral tablet (4 sources) Quinolone Antimicrobial Start: 04-27-2024 End: 05-07-2024 take 1 tablet by mouth once daily levoFLOXacin (LEVAQUIN) 500 mg tablet Take 1 tablet by mouth once daily for 10 days. 10 tablet 04/27/2024 05/07/2024 Active Start: 02-13-2022 take 500 mg by mouth once daily Levofloxacin Active 500 MG PO DAILY February 13, 2022 12:00am metoprolol tartrate 25 mg oral tablet (20 sources) beta-Adrenergic Asuncion Start: 07-16-2017 End: 03-18-2023 take 1 tablet by mouth twice daily metoprolol tartrate, short acting, (LOPRESSOR) 25 mg tablet Take 1 tablet by mouth twice daily. 02/08/2019 Active Start: 12-23-2011 End: 07-16-2017 take 50 mg by mouth twice daily Metoprolol Tartrate Di scontinued 50 MG PO TWICE A DAY October 04, 2015 12:00am July 16, 2017 10:57am Start: 12-23-2011 take 1 tablet by lovely th once daily TOPROL XL 25 MG [id number] One tablet by mouth daily METOPROLOL SUCCINATE [id number] Yeni Cha PA-C Start: 12-23-2011 take 0.5 tablet by m outh twice daily METOPROLOL TARTRATE 50 MG TABS 1/2 tablet by mouth twice daily METOPROLOL TARTRATE [id number] Hussein Meyer MD Start: 12-23-2011 take 1 tablet by lovely th twice daily METOPROLOL TARTRATE 25 MG TABS One tablet by mouth twice daily METOPROLOL TARTRATE [id number] Hussein Meyer MD Start: 12-23-2011 take 1 tablet by lovely th once daily TOPROL XL 25 MG [id number] One tablet by mouth daily METOPROLOL SUCCINATE [id number] Yeni Cha PA-C Start: 10-12-2010 METOPROLOL TAR TRATE 25 MG TABS 1/2 tablet 2 x Daily METOPROLOL TARTRATE [id number] Javier Vázquez MD Comment on above: Take 1 tablet by lovely th twice daily. phenazopyridine hydrochloride 200 mg oral tablet (2 sources) Start: take 1 tablet by mouth three times daily Phenazopyridine (Pyridium) 200 mg tablet Active 200 MG PO THREE TIMES A DAY February 08, 2022 12:00am potassium chloride 20 meq extended release oral tablet (1 source) Start: take 20 mEq by mouth once daily Potassium Chloride Active 20 MEQ PO DAILY February 13, 2022 12:00am predniSONE 20 mg oral tablet (1 source) Start: take 1 tablet by mouth once daily predniSONE (DELTASONE) 20 mg tablet Indications: Productive cough Take 1 tablet by mouth once daily. 4 tablet 05/14/2024 Active sulfamethoxazole 800 mg / trimethoprim 160 mg oral tablet (2 sources) Dihydrofolate Reductase Inhibitor Antibacterial, Sulfonamide Antimicrobial Start: take 1 tablet by mouth twice daily Sulfamethoxazole-Trime thoprim Active 1 TABLET PO TWICE A DAY February 08, 2022 12:00am ticagrelor 90 mg oral tablet (20 sources) Start: End: ticagrelor (BRILINTA) 90 mg tablet TWICE A DAY 03/27/2023 Active Comment on above: TWICE A DAY 24 hr tolterodine tartrate 4 mg extended release oral capsule (6 sources) Cholinergic Muscarinic Antagonist Start: take 4 mg by mouth once daily Tolterodine Active 4 MG PO daily July 16, 2017 1:00am Comment on above: Take 4 mg by mouth o nce daily. Completed/Discontinued Medications Medication Drug Class(es) Dates Sig (Normalized) Sig (Original) amiodarone hydrochloride 200 mg oral tablet (6 sources) Antiarrhythmic Start: 10-12-2010 End: 04-18-2011 take 1 tablet by mouth once daily AMIODARONE HCL 200 MG TABS One tablet by mouth daily AMIODARONE HCL [id number] Javier Vázquez MD amoxicillin 875 mg / clavulanate 125 mg oral tablet (14 sources) Penicillin-class Antibacterial Start: 09-25-2018 End: 10-05-2018 take 1 tablet by mouth every twelve hours Amoxicillin-Pot Clavulanate (Augmentin) 875-125 mg tablet Discontinued 1 TABLET PO Q12H 28 02September 25, 2018 12:00am October 05, 2018 12:07am atorvastatin 80 mg oral tablet (20 sources) HMG-CoA Reductase Inhibitor Start: 07-29-2023 End: 10-29-2023 take 0.5 tablet by mouth once atorvastatin (LIPITOR) 80 mg tablet Take 0.5 tablets by mouth once daily. Per [facility] (80 mg caused muscle aches) 07/29/2023 10/29/2023 Discontinued (Discontinued by Patient) Start: 07-25-2023 take 40 mg by mouth at bedtime Atorvastatin Active 40 MG PO AT BEDTIME July 25, 2023 8:58am Start: 03-27-2023 End: 07-29-2023 take 80 mg by mouth at bedtime Atorvastatin Discontinu ed 80 MG PO AT BEDTIME April 22, 2023 12:04pm July 25, 2023 8:58am Comment on above: Take 0.5 tablets by mouth once daily. Per [facility] (80 mg caused muscle aches) benzonatate 100 mg oral capsule (20 sources) Non-narcotic Antitussive Start: 09-26-19 End: 11-29-19 take 200 mg by mouth three times daily Benzonatate Discontinued 200 MG PO THREE TIMES A DAY July 05, 2019 1:00am November 29, 2019 9:29am cephalexin 500 mg oral capsule (14 sources) Cephalosporin Antibacterial Start: 07-05-19 End: 07-15-19 take 500 mg by mouth every twelve hours Cephalexin Discontinued 500 MG PO Q12H 20 July 05, 2019 1:00am July 15, 2019 1:08am ciprofloxacin 500 mg oral tablet (18 sources) Quinolone Antimicrobial Start: 05-13-19 End: 03-04-20 take 500 mg by mouth twice daily Ciprofloxacin Hcl Discontinued 500 MG PO TWICE A DAY May 13, 2022 1:00am March 04, 2023 2:34pm Comment on above: Take by mouth twice daily. finasteride 5 mg oral tablet (11 sources) 5-alpha Reductase Inhibitor Start: 05-12-19 End: 10-24-20 23 take 5 mg by mouth once daily Finasteride Discontinued 5 MG PO DAILY May 12, 2022 1:00am March 04, 2023 2:34pm flecainide acetate 100 mg oral tablet (20 sources) Antiarrhythmic Start: 10-04-19 16 End: 07-17-19 18 take 50 mg by mouth twice daily Flecainide Discontinued 50 MG PO TWICE A DAY October 04, 2015 12:00am July 16, 2017 10:57am Start: 11-29-2010 End: 04-22-2023 take 100 mg by mouth twice daily Flecainide Discontinued 100 MG PO TWICE A DAY 180 March 18, 2023 3:47pm April 22, 2023 11:04am Comment on above: Take 1 tablet by lovely twice daily. Lactobacillus acidophilus (20 sources) End: 10-29-2023 Lactobacillus acidophilus (PROBIOTIC ORAL) Take by mouth. 10/29/2023 Discontinued (Discontinued by Patient) End: 10-29-2023 Lactobacillus acidophilus (F LORAJEN ACIDOPHILUS ORAL) Take by mouth. 10/29/2023 Discontinued (Discontinued by Patient) End: 10-29-2023 Lactobacillus acidophilus (P ROBIOTIC ORAL) Take by mouth. 0 10/29/2023 Discontinued (Discontinued by Patient) End: 10-29-2023 Lactobacillus acidophilus (F LORAJEN ACIDOPHILUS ORAL) Take by mouth. 0 10/29/2023 Discontinued (Discontinued by Patient) Lactobacillus ac idophilus (PROBIOTIC ORAL) Take by mouth. 0 Active Lactobacillus ac idophilus (FLORAJEN ACIDOPHILUS ORAL) Take by mouth. 0 Active Comment on above: Take by mouth. loperamide hydrochloride 2 mg oral tablet (6 sources) Opioid Agonist Start: 1 End: 1 LOPERAMIDE HCL 2 MG TABS As needed LOPERAMIDE HCL [id number] Javier Vázquez MD magnesium oxide 400 mg oral tablet (6 sources) Start: 4 End: 5 take 1 tablet by mouth once daily MAGNESIUM 400 MG CAPS One tablet by mouth daily MAGNESIUM OXIDE [id number] Yeni Cha PA-C melatonin 3 mg oral tablet (14 sources) Start: 0 End: 2 take 3 mg by mouth at bedtime Melatonin Discontinued 3 MG PO AT BEDTIME December 18, 2019 12:00am December 26, 2021 4:05pm pravastatin sodium 10 mg oral tablet (20 sources) HMG-CoA Reductase Inhibitor Start: 1 End: 3 take 10 mg by mouth at bedtime Pravastatin Discontinued 10 MG PO AT BEDTIME February 05, 2023 3:00pm March 27, 2023 12:34pm Comment on above: Take 10 mg by mouth once daily. tamsulosin hydrochloride 0.4 mg oral capsule (20 sources) alpha-Adrenergic Asuncion Start: 2 End: 3 take 0.4 mg by mouth once daily Tamsulosin Discontinued 0.4 MG PO DAILY February 09, 2022 12:00am March 04, 2023 2:34pm Comment on above: Take 1 capsule by mo ut daily at bedtime. Per Urology, Dr. Maher Problems Active Problems Problem Classification Problem Date Documented Da te Episodic/Chronic Acute and unspecified renal failure (17 sources) Injury of kidney; Translations: [Acute kidney failure, unspecified] Episodic Acute bronchitis (14 sources) Acute bronchitis; Translations: [Acute bronchitis, unspecified] 09-25-2018 Episodic Acute myocardial infarction (20 sources) Myocardial infarction; Translations: [Non-ST elevation (NSTEMI) myocardial infarction] Onset: 03-28-2023 03-25-2023 Chronic Anxiety disorders (20 sources) Anxiety; Translations: [Anxiety disorder, unspecified] Onset: 03-10-2017 03-10-2017 Chronic Bacterial infection; unspecified site (16 sources) Bacteremia; Translations: [Bacteremia] Episodic Cancer of prostate (20 sources) Malignant tumor of prostate; Translations: [Malignant neoplasm of prostate] Onset: 05-31-2022 05-31-2022 Chronic Cardiac dysrhythmias (20 sources) Atrial fibrillation; Translations: [Unspecified atrial fibrillation] Onset: 12-18-2005 10-12-2010 Chronic Cardiac dysrhythmias (18 sources) Palpitations; Translations: [Palpitations] Onset: 10-12-2010 10-12-2010 Episodic Coronary atherosclerosis and other heart disease (20 sources) Coronary arteriosclerosis; Translations: [Atherosclerotic heart disease of enterprise coronary artery without angina pectoris] Onset: 03-28-2023 03-26-2023 Chronic Disorders of lipid metabolism (20 sources) Hyperlipidemia; Translations: [Hyperlipidemia, unspecified] Onset: 10-12-2010 10-12-2010 Chronic Fever of unknown origin (14 sources) Fever; Translations: [Fever, unspecified] Episodic Fluid and electrolyte disorders (1 source) Hypokalemia; Translations: [Hypokalemia] Episodic Gastrointestinal hemorrhage (1 source) Blood-tinged feces; Translations: [Melena] 10-29-2023 Episodic Hemorrhoids (1 source) External hemorrhoids; Translations: [Residual hemorrhoidal skin tags] 10-29-2023 Episodic Hyperplasia of prostate (20 sources) Urinary frequency due to benign prostatic hypertrophy; Translations: [Benign prostatic hyperplasia with lower urinary tract symptoms] Onset: 02-08-2019 12-29-2020 Chronic Immunizations and screening for infectious disease (15 sources) Vaccination needed; Translations: [Encounter for immunization] Episodic Inflammatory conditions of male genital organs (14 sources) Acute prostatitis; Translations: [Acute prostatitis] Episodic Nonspecific chest pain (11 sources) Chest pain; Translations: [Chest pain, unspecified] 03-24-2023 Episodic Other aftercare (5 sources) Other watermaster (current) drug therapy; Translations: [Long-term (current) use of other medications] Onset: 10-12-2010 10-12-2010 Episodic Other aftercare (14 sources) Long-term current use of drug therapy; Translations: [Other watermaster (current) drug therapy] 12-25-2020 Episodic Other aftercare (1 source) Post-discharge follow-up; Translations: [Encounter for follow-up examination after completed treatment for conditions other than malignant neoplasm] 04-14-2023 Episodic Other circulatory disease (11 sources) Low blood pressure; Translations: [Hypotension, unspecified] 05-13-2022 Episodic Other circulatory disease (3 sources) Hypotension, unspecified; Translations: [Hypotension, unspecified] Episodic Other circulatory disease (2 sources) Respiratory crackles; Translations: [Other specified symptoms and signs involving the circulatory and respiratory systems] 04-27-2024 Episodic Other circulatory disease (1 source) Other specified symptoms and signs involving the circulatory and respiratory systems; Translations: [Scattered respiratory crackles of right lung] Onset: 04-27-2024 Episodic Other diseases of kidney and ureters (1 source) Renal impairment; Translations: [Disorder of kidney and ureter, unspecified] Episodic Other gastrointestinal disorders (12 sources) Diarrhea; Translations: [Diarrhea, unspecified] 02-16-2022 Episodic Other gastrointestinal disorders (4 sources) Diarrhea, unspecified; Translations: [Diarrhea] Episodic Other injuries and conditions due to external causes (11 sources) Systemic inflammatory response syndrome; Translations: [Systemic inflammatory response syndrome (SIRS) of non-infectious origin without acute organ dysfunction] 05-13-2022 Episodic Other injuries and conditions due to external causes (3 sources) Systemic inflammatory response syndrome (SIRS) of non-infectious origin without acute organ dysfunction; Translations: [Systemic inflammatory response syndrome, unspecified] Episodic Other lower respiratory disease (2 sources) Persistent cough; Translations: [Persistent cough] Episodic Other lower respiratory disease (1 source) Chronic cough; Translations: [Chronic cough] Episodic Other lower respiratory disease (4 sources) Productive cough ; Translations: [Productive cough] Onset: 05-14-2024 05-14-2024 Episodic Other lower respiratory disease (1 source) Other nonspecific abnormal finding of lung field; Translations: [Other nonspecific abnormal finding of lung field] Onset: 06-23-2024 Episodic Other male genital disorders (20 sources) Male erectile dysfunction, unspecified; Translations: [Impotence of organic origin] Onset: 04-04-2010 04-04-2010 Chronic Other upper respiratory infections (18 sources) Upper respiratory infection; Translations: [Acute upper respiratory infection, unspecified] Onset: 05-27-2016 06-03-2016 Episodic Pneumonia (except that caused by tuberculosis or sexually transmitted disease) (4 sources) Bacterial pneumonia; Translations: [Unspecified bacterial pneumonia] Onset: 04-27-2024 04-27-2024 Episodic Residual codes; unclassified (1 source) Influenza-like symptoms; Translations: [Other general symptoms and signs] Episodic Spondylosis; intervertebral disc disorders; other back problems (11 sources) Thoracic back pain; Translations: [Pain in thoracic spine] 03-24-2023 Episodic Unclassified (1 source) Long-term drug therapy; Translations: [Other watermaster (current) drug therapy] Onset: 10-12-2010 10-12-2010 Urinary tract infections (20 sources) Hemorrhagic cystitis; Translations: [Cystitis, unspecified with hematuria] Episodic Past or Other Problems Problem Classification Problem Date Documented Da te Episodic/Chronic Abdominal hernia (20 sources) Inguinal hernia; Translations: [Unilateral inguinal hernia, without obstruction or gangrene, not specified as recurrent] Onset: 04-04-2010 Resolved: 05-24-2019 04-04-2010 Episodic Abdominal pain (20 sources) Abdominal wall pain; Translations: [Unspecified abdominal pain] Onset: 01-01-2022 01-01-2022 Episodic Appendicitis and other appendiceal conditions (20 sources) Acute appendicitis; Translations: [Unspecified acute appendicitis] Onset: 12-18-2019 Resolved: 12-29-2020 12-19-2019 Episodic Coronary atherosclerosis and other heart disease (14 sources) Stented coronary artery; Translations: [Presence of coronary angioplasty implant and graft] Onset: 03-26-2023 03-26-2023 Episodic Deficiency and other anemia (20 sources) Anemia; Translations: [Anemia, unspecified] Onset: 08-06-2010 Resolved: 02-08-2019 02-08-2019 Episodic Genitourinary symptoms and ill-defined conditions (2 sources) Olivier hematuria; Translations: [Gross hematuria] Onset: 05-31-2022 Episodic Other acquired deformities (20 sources) Acquired deformity of abdominal wall; Translations: [Other specified acquired deformities of musculoskeletal system] Onset: 03-13-2016 03-13-2016 Episodic Other acquired deformities (1 source) Other specified acquired deformities of musculoskeletal system; Translations: [Acquired abdominal wall defect] Onset: 01-16-2022 Episodic Other connective tissue disease (20 sources) Plantar fasciitis; Translations: [Plantar fascial fibromatosis] Onset: 05-24-2019 05-24-2019 Episodic Other connective tissue disease (20 sources) Bursitis of hip; Translations: [Trochanteric bursitis, unspecified hip] Onset: 04-04-2010 Resolved: 03-13-2016 03-13-2016 Episodic Other connective tissue disease (1 source) Adhesive capsulitis of left shoulder; Translations: [Adhesive capsulitis of left shoulder] Onset: 02-09-2024 Episodic Other inflammatory condition of skin (20 sources) Granuloma annulare; Translations: [Granuloma annulare] Onset: 05-24-2019 05-24-2019 Episodic Other non-traumatic joint disorders (3 sources) Pain in right knee; Translations: [Pain in joint, lower leg] Onset: 2023 2023 Episodic Other non-traumatic joint disorders (1 source) Other instability, left shoulder; Translations: [Other instability, left shoulder] Onset: 02-09-2024 Episodic Other nutritional; endocrine; and metabolic disorders (20 sources) Hypomagnesemia; Translations: [Hypomagnesemia] Onset: 07-24-2010 Resolved: 02-18-2018 02-18-2018 Chronic Other nutritional; endocrine; and metabolic disorders (3 sources) Body mass index (BMI) 26.0-26.9, adult; Translations: [Body mass index (BMI) 26.0-26.9, adult] Onset: 11-03-2013 11-03-2013 Episodic Other screening for suspected conditions (not mental disorders or infectious disease) (20 sources) Patient encounter status; Translations: [Encounter for screening for malignant neoplasm of colon] Onset: 01-16-2022 Episodic [place]idad-; endo-; and myocarditis; cardiomyopathy (except that caused by tuberculosis or sexually transmitted disease) (20 sources) Cardiomyopathy associated with another disorder; Translations: [Cardiomyopathy in diseases classified elsewhere] Onset: 02-08-2019 Resolved: 05-24-2019 Chronic Phlebitis; thrombophlebitis and thromboembolism (20 sources) Acute embolism and thrombosis of unspecified deep veins of unspecified distal lower extremity; Translations: [Embolism from thrombosis of vein of distal lower extremity] Onset: 10-12-2010 Resolved: 02-08-2019 10-12-2010 Episodic Residual codes; unclassified (19 sources) Family history of cancer of colon; Translations: [Family history of malignant neoplasm of digestive organs] Onset: 10-29-2023 10-29-2023 Episodic Unclassified (20 sources) FH: Hypertension; Translations: [Family history of ischemic heart disease and other diseases of the circulatory system] Onset: 02-18-2018 03-28-2015 Episodic Results Test Name Value Interpretation Reference Range Facility [facility] 05-14-2024 CNOV Office Visit (FAMPWS ) JERAMY WOOD ([id number]) 1960 M Date Time Provider Department 05/14/24 10:00 AM KARTHIK WYLIE During your visit today, we recorded the following information about you: Pulse Respiration Blood pressure Weight 73/minute 14/minute 108/70 84.4 kg Karthik Wylie APRN.[employer] 05/14/2024 10:19 AM Signed Chief Complaint Patient presents with: Follow Up HPI Jeramy Wood is a 63 year old male who presents here today for Above Complaints.. Patient presents for PNA follow up. Patient was [facility] for cough/congestion and was placed on antibiotic. On 04/27 he was seen by Dr. Christianson and a CXR was completed which showed no infiltrates and patient was instructed to swtich to levofloxacin. Patient completed levofloxacin and continues to have productive cough and SPO2 91-92%. Denies fever. Reports fatigue and some SOB with exertion. Using IS from previous hospitalization. Past medical history, appointments, medications, allergies reviewed. Previous Medical History PAST MEDICAL HISTORY Diagnosis Date Abdominal wall hernia 02/26/2013 Abdominal wall pain 01/01/2022 Acquired abdominal wall defect 03/13/2016 Acute embolism and thrombosis of deep vein of distal lower extremity (HCC) Acute renal failure (HCC) 06/01/2010 SECONDARY TO SEPTIC SHOCK, RECOVERED ON OWN Anxiety 03/10/2017 Atrial fibrillation (HCC) 12/18/2005 Benign prostatic hyperplasia with urinary frequency 02/08/2019 Sees Kay Duran NP with Dr. Jama BPH (benign prostatic hyperplasia) 05/21/2022 Dr. Jama. S/p TURP Cardiomyopathy in diseases classified elsewhere (HCC) Cardiomyopathy, nonischemic (HCC) 02/08/2019 associated with atrial fibrillation--well controlled. 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 Maher Septic shock(785.52) 06/01/2010 Small bowel obstruction (HCC) FOUND 06-01-10 ? FROM LAPRASCOPUIC HERNIA SURGERY Well adult exam 12/29/2020 Last done: 01/01/2022 Previous Surgical History PAST SURGICAL HISTORY Procedure Laterality Date ARTL CATHJ/CANNULJ MNTR/TRANSFUSION SPX PRQ 05/30/2010 CC CORONARY STENT 03/2023 stent to LAD COLONOSCOPY 07/03/2010 EXPLORATION ABDOMINAL WALL 06/13/2010 evacuation abdominal hematoma EXPLORATORY LAPAROTOMY, CELIOTOMY-SP 06/02/2010 placement of abdominal vac-pack EXPLORATORY LAPAROTOMY, CELIOTOMY-SP 06/02/2010 bowel resection, abdominal wash out EXPLORATORY LAPAROTOMY, CELIOTOMY-SP 06/08/2010 small bowel anastomosis INGUINAL HERNIA REPAIR HX Bilateral 05/28/2010 IR IVC FILTER PLACEMENT 07/19/2010 Bard Eclipse Filter LAPAROSCOPY APPENDECTOMY 2019 NASAL SEPTUM REPOS W STABILIZATION 1980 PAST SURGICAL HISTORY OF 06/05/2010 reopening of recent laparotomy PAST SURGICAL HISTORY OF 06/11/2010 reopening of recent laparotomy, removal infected mesh PAST SURGICAL HISTORY OF 06/14/2010 reopening of recent laparotomy, abdominal wash out PAST SURGICAL HISTORY OF Left Heart catheterization PT ED HEART AND VASCULAR 03/26/2023 mid [facility] TRANSURETHRAL ELEC-SURG PROSTATECTOM 05/2022 UPPER GI ENDOSCOPY DIAGNOSTIC 07/02/2010 Family History FAMILY HISTORY Problem Relation Age of Onset Colon Cancer Mother 70 Coronary Artery Disease Mother other (Heart Disease) Mother other (amyotropic lateral sclerosis) Father Multiple Sclerosis Brother Multiple Sclerosis Sister Diabetes Maternal Grandfather Patient Allergies ALLERGIES Allergen Reactions Lipitor [Atorvastat* Myalgia Current Medications Current Outpatient Medications on File Prior to Visit Medication Sig diclofenac (VOLTAREN ARTHRITIS PAIN) 1 % topical gel Apply 4 g to affected area four times daily. aspirin 81 mg cap Take 81 mg by mouth once daily. ticagrelor (BRILINTA) 90 mg tablet TWICE A DAY metoprolol tartrate, short acting, (LOPRESSOR) 25 mg tablet Take 1 tablet by mouth twice daily. COMPOUNDED PRESCRIPTION OTC sleep aid Diphenhydramine 50 mg No current facility-administered medications on file prior to visit. Social History Social History Tobacco Use Smoking status: Never Smokeless tobacco: Never Vaping Use Vaping status: Never Used Substance Use Topics Alcohol use: Not Currently Comment: SOCIAL BEER Elvin (more content not included)... Normal [facility] CNPNon [facility] JER[facility] WO[facility] ([id number]) 1960 M Date Time Provider Department 05/14/24 KARTHIK WYLIE [facility] During your visit today, we recorded the following information about you: Karthik Wylie APRN.[facility] 05/14/2024 11:12 AM Signed Please let patient know their xray is normal. I have sent in a prescription for prednisone. Abdulaziz Smith MA 05/14/2024 11:25 AM Signed Pt notified and verbalized understanding Abdulaziz Smith MA Allergies As of Date: 05/14/2024 Noted Allergy Reaction LIPITOR (ATORVASTATIN) 10/29/2023 17 - Myalgia Date Reviewed: 05/14/2024 Reviewed by: Abdulaziz Smith MA - Fully Assessed Reason for Visit: Results [95] Primary Visit Diagnosis:Productive cough [R05.8] Order(s):predniSONE (DELTASONE) 20 mg tabletTake 1 tablet by mouth once daily.Disp: 4 tabletRfl: 0 Prescriptions as of 05/14/2024 - predniSONE (DELTASONE) 20 mg tablet Take 1 tablet by mouth once daily. - diclofenac (VOLTAREN ARTHRITIS PAIN) 1 % topical gel Apply 4 g to affected area four times daily. - aspirin 81 mg cap Take 81 mg by mouth once daily. - ticagrelor (BRILINTA) 90 mg tablet TWICE A DAY - metoprolol tartrate, short acting, (LOPRESSOR) 25 mg tablet Take 1 tablet by mouth twice daily. - COMPOUNDED PRESCRIPTION OTC sleep aid Diphenhydramine 50 mg Meds Comments as of 11/01/2014: Extra Strengthen PM Problem List As Of Date 05/14/2024 Noted Resolved Atrial fibrillation (HCC) [I48.91] 12/18/2005 Erectile dysfunction [N52.9] 04/04/2010 Inguinal hernia [K40.90] 04/04/2010 Trochanteric bursitis [M70.60] 04/04/2010 03/13/2016 Hypomagnesemia [E83.42] 07/24/2010 02/18/2018 Anemia [D64.9] 08/06/2010 02/08/2019 DVT (deep venous thrombosis) (HCC) [I82.409] 03/27/2011 03/10/2017 Abdominal wall hernia [K43.9] 02/26/2013 05/24/2019 Acquired abdominal wall defect [M95.8] 03/13/2016 Anxiety [F41.9] 03/10/2017 Acute embolism and thrombosis of deep vein of d*10/12/2010 02/08/2019 Family history of hypertension [Z82.49] 02/18/2018 Mixed hyperlipidemia [E78.2] 10/12/2010 Benign prostatic hyperplasia with urinary frequ*02/08/2019 Cardiomyopathy, nonischemic (HCC) [I42.8] 02/08/2019 05/24/2019 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] 05/24/2019 Plantar fasciitis [M72.2] 05/24/2019 Appendicitis [K37] 12/18/2019 12/29/2020 Well adult exam [Z00.00] 12/29/2020 Abdominal wall pain [R10.9] 01/01/2022 Medication management [Z79.899] 01/16/2022 BPH (benign prostatic hyperplasia) [N40.0] 05/21/2022 Prostate cancer (HCC) [C61] 05/31/2022 NSTEMI (non-ST elevated myocardial infarction) *03/28/2023 Coronary artery disease due to lipid rich plaqu*03/28/2023 Family history of colon cancer in mother [Z80.0]10/29/2023 Prescriptions ordered this encounter Disp Refills Start End PREDNISONE 20 MG TABLET 4 ta* 0 05/14/2024 Route: ORAL Sig: Take 1 tablet by mouth once daily. Encounter Status:Closed by WORKMAN ABDULAZIZ EASTMAN on 05/14/24 Normal [facility] XR CHEST 2V FRONTAL/LATon XR CHEST 2V FRONTAL/LAT * * *Final Repor t* * * DATE OF EXAM: May 14 2024 10:40AM WOX [id number] - XR CHEST 2V FRONTAL/LAT / PROCEDURE REASON: Productive cough * * * * Physician Interpretation * * * * EXAMINATION: CHEST RADIOGRAPH (2 VIEW FRONTAL and LATERAL) CLINICAL HISTORY: Productive cough MQ: XC2_6 EXAM DATE/TIME: 05/14/2024 10:40 AM COMPARISON: Chest x-ray on 04/27/2024 RESULT: Lines, tubes, and devices: None. Lungs and pleura: No consolidation. No lung mass. No pleural effusion. No pneumothorax. Cardiomediastinal silhouette: Normal cardiomediastinal silhouette. Bones and soft tissues: The spine shows degenerative changes. IMPRESSION: No acute radiographic abnormality. Professor Of Architecture: CHRISTI Transcribe Date/Time: May 14 2024 10:42A Dictated by : MALIK ZAPATA MD This examination was interpreted and the report reviewed and electronically signed by: MALIK ZAPATA MD on May 14 2024 10:43AM EST [id number] Normal [facility] XR Chest PA and Lateralon IMPRESSION: No acute radiographic abnormality. Professor Of Architecture: [employer] Transcribe Date/Time: May 14 2024 10:42A Dictated by : MALIK ZAPATA MD This examination was interpreted and the report reviewed and electronically signed by: MALIK ZAPATA MD on May 14 2024 10:43AM EST DIVISION OF RADIOLOGY * * *Final Report* * * DATE OF EXAM: May 14 2024 10:40AM WOX [id number] - XR CHEST 2V FRONTAL/LAT / PROCEDURE REASON: Productive cough * * * * Physician Interpretation * * * * EXAMINATION: CHEST RADIOGRAPH (2 VIEW FRONTAL & LATERAL) CLINICAL HISTORY: Productive cough MQ: XC2_6 EXAM DATE/TIME: 05/14/2024 10:40 AM COMPARISON: Chest x-ray on 04/27/2024 RESULT: Lines, tubes, and devices: None. Lungs and pleura: No consolidation. No lung mass. No pleural effusion. No pneumothorax. Cardiomediastinal silhouette: Normal cardiomediastinal silhouette. Bones and soft tissues: The spine shows degenerative changes. DIVISION OF RADIOLOGY Provider, Gisela Christy Marin - 05/14/2024 * * *Final Report* * * DATE OF EXAM: May 14 2024 10:40AM WOX [id number] - XR CHEST 2V FRONTAL/LAT / PROCEDURE REASON: Productive cough * * * * Physician Interpretation * * * * EXAMINATION: CHEST RADIOGRAPH (2 VIEW FRONTAL & LATERAL) CLINICAL HISTORY: Productive cough MQ: XC2_6 EXAM DATE/TIME: 05/14/2024 10:40 AM COMPARISON: Chest x-ray on 04/27/2024 RESULT: Lines, tubes, and devices: None. Lungs and pleura: No consolidation. No lung mass. No pleural effusion. No pneumothorax. Cardiomediastinal silhouette: Normal cardiomediastinal silhouette. Bones and soft tissues: The spine shows degenerative changes. IMPRESSION IMPRESSION: No acute radiographic abnormality. Professor Of Architecture: CHRISTI Transcribe Date/Time: May 14 2024 10:42A Dictated by : MALIK ZAPATA MD This examination was interpreted and the report reviewed and electronically signed by: MALIK ZAPATA MD on May 14 2024 10:43AM [facility] Radiology Study observation (narrative) Dougie noel [facility] XR Chest PA and LateralOrder ed By: Cc Provider on 05-14-2024 [facility] CNPPat 05-13-2024 CNPN Telephone (FAMPWS) JERAMY WOOD ([id number]) 1960 M Date Time Provider Department 05/13/24 SHAN CHRISTIANSON During your visit today, we recorded the following information about you: Sriram Nuñez RN 05/13/2024 12:48 PM Signed Patient calls to report continues to have productive cough and tired. Feels that symptoms are worse than before. SPO2 91-92%. ATB completed. Tessalon pearls not effective. Patient seen on 04/27/2024 for bacterial pneumonia. Follow up appt scheduled per OV notes. Sriram Nuñez RN Allergies As of Date: 05/13/2024 Noted Allergy Reaction LIPITOR (ATORVASTATIN) 10/29/2023 17 - Myalgia Date Reviewed: 04/27/2024 Reviewed by: Shan Christianson MD - Fully Assessed Reason for Visit: Patient Update [1234] Prescriptions as of 05/13/2024 - diclofenac (VOLTAREN ARTHRITIS PAIN) 1 % topical gel Apply 4 g to affected area four times daily. - aspirin 81 mg cap Take 81 mg by mouth once daily. - ticagrelor (BRILINTA) 90 mg tablet TWICE A DAY - metoprolol tartrate, short acting, (LOPRESSOR) 25 mg tablet Take 1 tablet by mouth twice daily. - COMPOUNDED PRESCRIPTION OTC sleep aid Diphenhydramine 50 mg Meds Comments as of 11/01/2014: Extra Strengthen PM Problem List As Of Date 05/13/2024 Noted Resolved Atrial fibrillation (HCC) [I48.91] 12/18/2005 Erectile dysfunction [N52.9] 04/04/2010 Inguinal hernia [K40.90] 04/04/2010 Trochanteric bursitis [M70.60] 04/04/2010 03/13/2016 Hypomagnesemia [E83.42] 07/24/2010 02/18/2018 Anemia [D64.9] 08/06/2010 02/08/2019 DVT (deep venous thrombosis) (HCC) [I82.409] 03/27/2011 03/10/2017 Abdominal wall hernia [K43.9] 02/26/2013 05/24/2019 Acquired abdominal wall defect [M95.8] 03/13/2016 Anxiety [F41.9] 03/10/2017 Acute embolism and thrombosis of deep vein of d*10/12/2010 02/08/2019 Family history of hypertension [Z82.49] 02/18/2018 Mixed hyperlipidemia [E78.2] 10/12/2010 Benign prostatic hyperplasia with urinary frequ*02/08/2019 Cardiomyopathy, nonischemic (HCC) [I42.8] 02/08/2019 05/24/2019 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] 05/24/2019 Plantar fasciitis [M72.2] 05/24/2019 Appendicitis [K37] 12/18/2019 12/29/2020 Well adult exam [Z00.00] 12/29/2020 Abdominal wall pain [R10.9] 01/01/2022 Medication management [Z79.899] 01/16/2022 BPH (benign prostatic hyperplasia) [N40.0] 05/21/2022 Prostate cancer (HCC) [C61] 05/31/2022 NSTEMI (non-ST elevated myocardial infarction) *03/28/2023 Coronary artery disease due to lipid rich plaqu*03/28/2023 Family history of colon cancer in mother [Z80.0]10/29/2023 Encounter Status:Closed by SRIRAM NUÑEZ on 05/13/24 [facility] [place] 04-27-2024 CNOV Office Visit (FAMPWS ) ROCKJERAMY J ([id number]) 1960 M Date Time Provider Department 04/27/24 2:00 PM SHAN CHRISTIANSONPWS During your visit today, we recorded the following information about you: Temperature Pulse Respiration Blood pressure 97.2 degrees 75/minute 22/minute 102/62 Weight 83.5 kg Shan Christianson MD 04/27/2024 3:09 PM Signed Chief Complaint Patient presents with: Follow Up HPI Jeramy Wood is a 63 year old male who presents here today for follow up on pneumonia. Patient was seen at the [facility] on 04/21/2024 for cough/congestion. Patient was placed on antibiotic but feels that he is getting worse rather than better. [facility] did not complete a chest x-ray at that time; nor test patient for COVID/FLU/RSV Patient is currently on Benzonatate for cough and Azithromycin 250 mg two the first day and then one a day for the next 10 days Was patient tested for COVID/Flu/RSV? None Sinus drainage? Patient indicated started around the Apr Cough? Bringing up anything? Patient notified several times of coughing up of blood. Otherwise cough has been yellow green. Fever? Patient noted chills. Patient has noticed increased wheezing at night time. Some slight shortness of breath. No ear pain, Had swelling in the maxillary regions initially. No nasal discharge. Some post nasal drainage with no sore throat. No nausea, vomiting or diarrhea. Two grandchildren and his did have pneumonia. Past medical history, appointments, medications, allergies reviewed. Previous Medical History PAST MEDICAL HISTORY Diagnosis Date Abdominal wall hernia 02/26/2013 Abdominal wall pain 01/01/2022 Acquired abdominal wall defect 03/13/2016 Acute embolism and thrombosis of deep vein of distal lower extremity ([facility]) Acute renal failure ([facility]) 06/01/2010 SECONDARY TO SEPTIC SHOCK, RECOVERED ON OWN Anxiety 03/10/2017 Atrial fibrillation ([facility]) 12/18/2005 Benign prostatic hyperplasia with urinary frequency 02/08/2019 Sees Kay Duran NP with Dr. Jama BPH (benign prostatic hyperplasia) 05/21/2022 Dr. Jama. S/p TURP Cardiomyopathy in diseases classified elsewhere ([facility]) Cardiomyopathy, nonischemic ([facility]) 02/08/2019 associated with atrial fibrillation--well controlled. 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 Maher Septic shock(785.52) 06/01/2010 Small bowel obstruction (HCC) FOUND 06-01-10 ? FROM LAPRASCOPUIC HERNIA SURGERY Well adult exam 12/29/2020 Last done: 01/01/2022 Previous Surgical History PAST SURGICAL HISTORY Procedure Laterality Date ARTL CATHJ/CANNULJ MNTR/TRANSFUSION SPX PRQ 05/30/2010 CC CORONARY STENT 03/2023 stent to LAD COLONOSCOPY 07/03/2010 EXPLORATION ABDOMINAL WALL 06/13/2010 evacuation abdominal hematoma EXPLORATORY LAPAROTOMY, CELIOTOMY-SP 06/02/2010 placement of abdominal vac-pack EXPLORATORY LAPAROTOMY, CELIOTOMY-SP 06/02/2010 bowel resection, abdominal wash out EXPLORATORY LAPAROTOMY, CELIOTOMY-SP 06/08/2010 small bowel anastomosis INGUINAL HERNIA REPAIR HX Bilateral 05/28/2010 IR IVC FILTER PLACEMENT 07/19/2010 Bard Eclipse Filter LAPAROSCOPY APPENDECTOMY 2019 NASAL SEPTUM REPOS W STABILIZATION 1980 PAST SURGICAL HISTORY OF 06/05/2010 reopening of recent laparotomy PAST SURGICAL HISTORY OF 06/11/2010 reopening of recent laparotomy, removal infected mesh PAST SURGICAL HISTORY OF 06/14/2010 reopening of recent laparotomy, abdominal wash out PAST SURGICAL HISTORY OF Left Heart catheterization PT ED HEART AND VASCULAR 03/26/2023 mid [facility] TRANSURETHRAL ELEC-SURG PROSTATECTOM 05/2022 UPPER GI ENDOSCOPY DIAGNOSTIC 07/02/2010 Family History FAMILY HISTORY Problem Relation Age of Onset Colon Cancer Mother 70 Coronary Artery Disease Mother other (Heart Disease) Mother other (amyotropic lateral sclerosis) Father Multiple Sclerosis Brother Multiple Sclerosis Sister Diabetes Maternal Grandfather Patient Allergies ALLERGIES Allergen Reactions Lipitor [Atorvastat* Myalgia Current Medications Current Outpatient Medications on File Prior to Visit Medication Sig diclofenac (VOLTAREN ARTHRITIS PAIN) 1 % topical gel Apply 4 g to affected area four times daily. aspirin 81 mg cap Take 8 (more content not included)... Normal [facility] Noah 04-27-2024 [facility] JERAM[facility] WO[facility] ([id number]) 1960 M Date Time Provider Department 04/27/24 SHAN CHRISTIANSON During your visit today, we recorded the following information about you: Shan Christianson MD 04/27/2024 3:35 PM Signed Let patient know chest x-ray does not show any infiltrates, however is under hydrated that can be normal. Cont current Tx plan. Awa Mann RN 04/27/2024 3:43 PM Signed Pt called and is notified of providers results and instructions. Pt voices understanding. Awa Mann RN Allergies As of Date: 04/27/2024 Noted Allergy Reaction LIPITOR (ATORVASTATIN) 10/29/2023 17 - Myalgia Date Reviewed: 04/27/2024 Reviewed by: Shan Christianson MD - Fully Assessed Reason for Visit: Results [95] Prescriptions as of 04/27/2024 - levoFLOXacin (LEVAQUIN) 500 mg tablet Take 1 tablet by mouth once daily for 10 days. - diclofenac (VOLTAREN ARTHRITIS PAIN) 1 % topical gel Apply 4 g to affected area four times daily. - aspirin 81 mg cap Take 81 mg by mouth once daily. - ticagrelor (BRILINTA) 90 mg tablet TWICE A DAY - metoprolol tartrate, short acting, (LOPRESSOR) 25 mg tablet Take 1 tablet by mouth twice daily. - COMPOUNDED PRESCRIPTION OTC sleep aid Diphenhydramine 50 mg Meds Comments as of 11/01/2014: Extra Strengthen PM Problem List As Of Date 04/27/2024 Noted Resolved Atrial fibrillation (HCC) [I48.91] 12/18/2005 Erectile dysfunction [N52.9] 04/04/2010 Inguinal hernia [K40.90] 04/04/2010 Trochanteric bursitis [M70.60] 04/04/2010 03/13/2016 Hypomagnesemia [E83.42] 07/24/2010 02/18/2018 Anemia [D64.9] 08/06/2010 02/08/2019 DVT (deep venous thrombosis) (HCC) [I82.409] 03/27/2011 03/10/2017 Abdominal wall hernia [K43.9] 02/26/2013 05/24/2019 Acquired abdominal wall defect [M95.8] 03/13/2016 Anxiety [F41.9] 03/10/2017 Acute embolism and thrombosis of deep vein of d*10/12/2010 02/08/2019 Family history of hypertension [Z82.49] 02/18/2018 Mixed hyperlipidemia [E78.2] 10/12/2010 Benign prostatic hyperplasia with urinary frequ*02/08/2019 Cardiomyopathy, nonischemic (HCC) [I42.8] 02/08/2019 05/24/2019 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] 05/24/2019 Plantar fasciitis [M72.2] 05/24/2019 Appendicitis [K37] 12/18/2019 12/29/2020 Well adult exam [Z00.00] 12/29/2020 Abdominal wall pain [R10.9] 01/01/2022 Medication management [Z79.899] 01/16/2022 BPH (benign prostatic hyperplasia) [N40.0] 05/21/2022 Prostate cancer (HCC) [C61] 05/31/2022 NSTEMI (non-ST elevated myocardial infarction) *03/28/2023 Coronary artery disease due to lipid rich plaqu*03/28/2023 Family history of colon cancer in mother [Z80.0]10/29/2023 Encounter Status:Closed by AWA MANN on 04/27/24 Normal [facility] XR CHEST 2V FRONTAL/LATon XR CHEST 2V FRONTAL/LAT * * *Final Repor t* * * DATE OF EXAM: Apr 27 2024 2:58PM WOX [id number] - XR CHEST 2V FRONTAL/LAT / PROCEDURE REASON: multiple diagnoses * * * * Physician Interpretation * * * * EXAM: CHEST X-RAY CLINICAL HISTORY: Bacterial pneumonia, scattered respiratory crackles of right lung TECHNIQUE: Upright frontal and lateral views. COMPARISON: 07/06/2010 RESULT: Heart/mediastinum: Within normal limits. Lungs/pleura: Clear. Bones/soft tissues: Unremarkable. Lines/tubes/devices: None visualized. IMPRESSION: No active disease in the chest. Professor Of Architecture: P[employer] Transcribe Date/Time: Apr 27 2024 3:00P Dictated by : ANTHONY PEREZ MD This examination was interpreted and the report reviewed and electronically signed by: ANTHONY PEREZ MD on Apr 27 2024 3:01PM EST [id number] Normal [facility] XR Chest PA and Lateralon IMPRESSION: No active disease in the chest. Professor Of Architecture: PSCB Transcribe Date/Time: Apr 27 2024 3:00P Dictated by : ANTHONY PEREZ MD This examination was interpreted and the report reviewed and electronically signed by: ANTHONY PEREZ MD on Apr 27 2024 3:01PM EST DIVISION OF RADIOLOGY * * *Final Report* * * DATE OF EXAM: Apr 27 2024 2:58PM WOX 5291 - XR CHEST 2V FRONTAL/LAT / PROCEDURE REASON: multiple diagnoses * * * * Physician Interpretation * * * * EXAM: CHEST X-RAY CLINICAL HISTORY: Bacterial pneumonia, scattered respiratory crackles of right lung TECHNIQUE: Upright frontal and lateral views. COMPARISON: 07/06/2010 RESULT: Heart/mediastinum: Within normal limits. Lungs/pleura: Clear. Bones/soft tissues: Unremarkable. Lines/tubes/devices: None visualized. DIVISION OF RADIOLOGY Provider, [facility] - 04/27/2024 * * *Final Report* * * DATE OF EXAM: Apr 27 2024 2:58PM WOX 5291 - XR CHEST 2V FRONTAL/LAT / PROCEDURE REASON: multiple diagnoses * * * * Physician Interpretation * * * * EXAM: CHEST X-RAY CLINICAL HISTORY: Bacterial pneumonia, scattered respiratory crackles of right lung TECHNIQUE: Upright frontal and lateral views. COMPARISON: 07/06/2010 RESULT: Heart/mediastinum: Within normal limits. Lungs/pleura: Clear. Bones/soft tissues: Unremarkable. Lines/tubes/devices: None visualized. IMPRESSION IMPRESSION: No active disease in the chest. Professor Of Architecture: PSCB Transcribe Date/Time: Apr 27 2024 3:00P Dictated by : ANTHONY PEREZ MD This examination was interpreted and the report reviewed and electronically signed by: ANTHONY PEREZ MD on Apr 27 2024 3:01PM EST [facility] Radiology Study observation (narrative) Dougie noel [facility] XR Chest PA and LateralOrder ed By: [facility] Provider on 04-27-2024 [facility] Visit Reporton 1 06-22-2023 Urgent Care Visit Report [facility] [address], [address] [place] [address] OFFICE VISIT Date of Service: 04/21/24 MR#: [id number] Acct: [id number] Name: JERAMY WOOD Rep #: [id number] : 1960 Provider: ROGER Kramer Age/Sex: 63/M Location: [facility] Status: Signed Intake Vital Signs 01/22/24 09:55 04/21/24 12:33 Height 6 ft 6 ft Weight: 177 lb 185 lb BMI 24.0 25.0 BP 112/74 118/64 Blood Pressure Location Lt brachial Lt brachial Position Sitting Sitting Respiration 16 16 Pulse 66 82 Pulse Source Monitor Monitor Temp 98.4 F Temp Source Oral Pulse Oximetry (%) 96 98 Oxygen Delivery Method room air room air Intake Visit Reasons: Cough Chief Complaint: COUGH Veneer Patcher Required: No Accompanied by: Self Is patient in pain?: No Allergies No Known Allergies Allergy (Verified 04/21/24 12:34) Medications ???Medication ???Instructions ???Recorded ???Confirmed ???Type diphenhydramine HCl 50 mg capsule 50 mg PO QHS 12/26/21 04/21/24 History aspirin 81 mg tablet,delayed 81 mg PO BREAKFAST #90 tabs 03/27/23 04/21/24 Rx release ticagrelor 90 mg tablet (Brilinta) 90 mg PO BID 90 days #180 tabs 04/22/23 04/21/24 Rx atorvastatin 20 mg tablet 20 mg PO .QOD #15 tabs 01/01/24 04/21/24 Rx coenzyme Q10 100 mg capsule 100 mg PO DAILY #30 caps 01/01/24 04/21/24 Rx (CoQ-10) metoprolol tartrate 50 mg tablet 50 mg PO BID #180 tabs 01/22/24 04/21/24 Rx azithromycin 250 mg tablet 250 mg PO .COMPLEX #12 tabs 04/21/24 04/21/24 Rx benzonatate 200 mg capsule 200 mg PO TID PRN cough #20 caps 04/21/24 04/21/24 Rx Nurse's Note: PT DECLINES COVID AND FLU TESTING TODAY [facility] Medical History (Updated 04/21/24 @ 12:52 by Adalid Gloria PA, PA) Pulmonary infiltrate Acute maxillary sinusitis, unspecified Arteriosclerotic coronary artery disease NSTEMI (non-ST elevated myocardial infarction) Cancer Kidney stones GERD (gastroesophageal reflux disease) Irregular heart beat Atrial fibrillation DVT (deep venous thrombosis) Encounter for screening for COVID-19 URI (upper respiratory infection) Pure hypercholesterolemia Paroxysmal atrial fibrillation Cardiomyopathy in other diseases classified elsewhere Family history of hypertension Hyperlipidemia Acute embolism and thrombosis of deep vein of distal lower extremity Palpitations Surgical History Stented coronary artery (03/26/23) History of appendectomy History of left heart catheterization (LHC) Presence of IVC filter Family History Father Martha Gehrig disease Mother Myocardial infarction CAD (coronary artery disease) Brother Myocardial infarction, Onset Age: 60 Hypertension Multiple sclerosis Other Family history of hypertension Social History household members: spouse housing: house Smoking Status: Never smoker alcohol intake: current alcohol intake frequency: a few times a week Alcohol type: beer substance use type: does not use caffeine: Yes Type: coffee Number of servings: 2 what type of physical activity do you participate in: none seatbelt use: always do you feel safe at home: Yes HPI HPI Chief Complaint: COUGH Details: JERAMY WOOD, is a 63 M who presents to the office today for approximately 1 week history of progressively worsening left facial pressure with purulent postnasal drip and cough with a chest heaviness/inability to get a full breath as patient describes, concerned he may have pneumonia; 2 of his granddaughters he was exposed to approximately week ago were diagnosed with walking pneumonia and is concerned he may have the same. Patient noted fever and chills the first 48 hours with symptoms having subsided in that respect but above symptoms persist as previously mentioned. Non- smoker. Declining all POC screening upon offering. No [id number]-[id number] products taken to assist. No other associated symptoms and no other alleviating/aggravating factors. ROS Const Constitutional: No other (As above) Exam Const General: cooperative, healthy appearing and no acute distress Nutritional Appearance: average body habitus Orientation: alert and awake [facility] Head: normal to inspection Ears: hearing grossly normal bilaterally, external ears normal, TM's normal bilaterally and EAC's normal Nose: external nose normal, nares normal, septum normal and no nasal discharge Face and sinus: normal facial exam, face symmetric and sinus tenderness maxillary (left, w/ fullness to palpation same) Mouth: oral mucosae normal, lip normal, tongue normal, oropharynx normal and moist mucous membranes Throat: posterior oropharynx normal, tonsils norm (more content not included)... Normal [facility] PSA,Total- Diagnosticon 11-0 PSA, DIAGNOSTIC 0.89 ng/mL Normal 0.0-4.0 [facility] Comment on above: Result Comment: This test was performed using the TPSA assay method for the [employer] chemistry system. Values obtained with different assay methods cannot be used interchangably. When changing PSA assays in the course of monitoring a patient, additional sequential testing should be carried out to confirm baseline values. Performed By: #### L [id number] ####[facility] [id number] [place], [place], [id number] PT D/C Summary (1)on 024 PT D/C Summary (1) [facility] Physical Therapy [facility] [address] [place] [address] [address] [place] [address] / REHABILITATION SERVICES DISCHARGE SUMMARY MR#: [id number] Acct: [id number] Name: JERAMY WOOD Rep #: [id number] : 1960 63 From: Tacho Holloway PT, ATC Referring DrNydia: AFIA Prieto Status: REG R CR Insurance: [employer] PAY INSURANCE Discharge Summary D/C summary: It has been my pleasure to treat JERAMY WOOD referred by Kar Prieto PA-C, with the diagnosis of L shoulder adhesive capsulitis for a total of 6 visit(s). Discharge Date: Please see the following information for a summary of their discharge status. Subjective Subjective: L shoulder pain has remained a consistent /. No overall improvements Pain L shoulder: Pain Intensity (Out of 10): 3 Overall Improvement % Improvement: 0 Objective Objective/Function: L shoulder pain is 3/10 L shoulder MMT: flex= 12, abd= 21, ER= 9, IR= 22 #F L shoulder ROM: flex= 120, abd= 115 degrees Pt is I with HEP Pt remains limited by pain at this time Goals Goal 1:: Decrease L shoulder pain x 50% to aid with sleep Goal Progress: Not Progressing Goal 2:: Increase L shoulder flex and abd ROM x 30 degrees to aid with overhead lifting Goal Progress: Not Progressing Goal 3:: Increase L shoulder strength x 10#F to aid with return to exercise Goal Progress: Not Progressing Goal 4:: I with HEP Goal Progress: Goal Met Plan Plan: Discontinue, RTD D/C Information d/c sentence: If there are questions or concerns regarding this patient's physical therapy, please feel free to call me at [phone]. Thank you for the referral of this patient. Sincerely, Tacho Holloway, PT, ATC Balance/Gait/Functional tests Balance/Special Test Scores Quick DASH Score: 13.6350 Improvement % Improvement: 0 02/09/24927 CC: AFIA Prieto; Dr. Shan Christianson MD [facility] Signed Normal [facility] 12 Lead EKG performed by [facility] on 01-22-2024 12 Lead EKG performed by [facility] [address] [place] [address] 12 Lead EKG performed by [facility] 01/22/24 0807 MR#: [id number] Acct: [id number] Name: JERAMY WOOD Rep #: [id number] : 1960 63 From: Johnny Cantu MD Attending Dr: Dr. Johnny Cantu MD Status: DE P AMB Ordering Dr: Johnny Cantu MD Date: 01/22/24 Location: [facility] Sex: M C Admitted: [facility]/12 Lead EKG performed by [facility] ECG Report Interpretation ---Sinus Rhythm WITHIN NORMAL LIMITSElectronically signed on 01/22/2024 at 11:[address] Johnny Hernadez Software Version 8610 01/22/24 1116 Date Johnny Canut MD CC: Dr. Shan Christianson MD Date Dictated: 01/22/24806 Date Transcribed: 01/22/24806 Professor Of Architecture: Signed Normal [facility] Cardiology Visit Reporton Cardiology Visit Report [facility] [address] [place] [address] OFFICE VISIT Date of Service: 01/22/24 MR#: [id number] Acct: [id number] Name: JERAMY WOOD Rep #: [id number] : 1960 Provider: Dr. Johnny pack MD Age/Sex: 63/M Location: [facility] Status: Signed HPI HPI History of Present Illness Details: JERAMY WOOD, is a 63 M who presents to the office today for a cardiovascular follow-up for recent episode of paroxysmal atrial fibrillation. He has a history of previous non CAD related cardiomyopathy, paroxysmal atrial fibrillation, and hyperlipidemia. He presented the emergency department 03/24/2023 for chest pain. He was admitted for non-ST elevated myocardial infarction. He underwent heart cath station 03/26/2023 that showed left main is angiographically normal, LAD with 90% stenosis, LCx with no significant stenosis, and a dominant large RCA. He proceeded with drug-eluting stent to mid LAD. He was noted to have atrial fibrillation during admission. Echocardiogram showed an ejection fraction of 50-55% and no significant valvular abnormality. The patient was recently seen in the emergency department 01/08/2024 when he presented with recurrent paroxysmal atrial fibrillation with a heart rate in the 130 bpm range. The patient has a WAI5DI7- VASc score of 1 he has been on a combination of Brilinta and aspirin since his cardiac event in March 2023. The patient reports that he spontaneously reverted back into sinus rhythm with additional dose of metoprolol. A Holter monitor was performed this showed no atrial fibrillation on a 48-hour monitor he did have 1 run of SVT that was 6 beats and minimal ventricular ectopy. Historically the patient has been treated with flecainide which was discontinued due to his coronary artery disease. We performed a stress test on him January 21, 2024. The patient did an excellent level of exercise the perfusion scan showed no evidence of scar or ischemia. His ejection fraction was estimated at 61%. The patient exercised on a regular Long protocol for 9 minutes and 30 seconds he achieved a heart rate of 136 which was 86% maximum predicted. He did 11.7 METS. The patient reports that he is well aware when he has any atrial fibrillation he feels the palpitations. He has not had any since he was in the emergency department he did not have any atrial fibs on the 48-hour Holter monitor and he did not have any atrial fibs with activity on the treadmill. Historically the patient been well-controlled with flecainide as noted above. He is reluctant to go back on it at this point in time and I feel as long as we can control him with metoprolol that is a better approach given his known coronary disease. Intake Vital Signs 12/16/23 09:46 01/08/24 08:53 01/22/24 09:55 Height 6 ft 6 in 6 ft 6 ft Weight: 177 lb BMI 24.0 BP 112/74 Blood Pressure Location Lt brachial Position Sitting Respiration 16 Pulse 66 Pulse Source Monitor Pulse Oximetry (%) 96 Oxygen Delivery Method room air Intake Visit Reasons: 6 M Veneer Patcher Required: No Accompanied by: Self Is patient in pain?: No Allergies No Known Allergies Allergy (Verified 01/22/24 09:55) Medications ???Medication ???Instructions ???Recorded ???Confirmed ???Type diphenhydramine HCl 50 mg capsule 50 mg PO QHS 12/26/21 01/22/24 History aspirin 81 mg tablet,delayed 81 mg PO BREAKFAST #90 tabs 03/27/23 01/22/24 Rx release ticagrelor 90 mg tablet (Brilinta) 90 mg PO BID 90 days #180 tabs 04/22/23 01/22/24 Rx atorvastatin 20 mg tablet 20 mg PO .QOD #15 tabs 01/01/24 01/22/24 Rx coenzyme Q10 100 mg capsule 100 mg PO DAILY #30 caps 01/01/24 01/01/24 Rx (CoQ-10) metoprolol tartrate 50 mg tablet 50 mg PO BID #180 tabs 01/22/24 01/22/24 Rx Ejection fraction %: 60 Have you fallen in the past year?: No PFSH Medical History Arteriosclerotic coronary artery disease NSTEMI (non-ST elevated myocardial infarction) Cancer Kidney stones GERD (gastroesophageal reflux disease) Irregular heart beat Atrial fibrillation DVT (deep venous thrombosis) Encounter for screening for COVID-19 URI (upper respiratory infection) Pure hypercholesterolemia Paroxysmal atrial fibrillation Cardiomyopathy in other diseases classified elsewhere Family history of hypertension Hyperlipidemia Acute embolism and thrombosis of deep vein of distal lower extremity Palpitations Surgical History Stented coronary artery (03/26/23) History of appendectomy History of left heart catheterization (LHC) Presence of IVC filter Family History Father Martha castaneda (more content not included)... Normal [facility] Stress Reporton 01-21-2024 Stress Report [facility] [address] [place] [address] MR#: [id number] Acct: [id number] Name: JERAMY WOOD Rep #: [id number] : 1960 63 From: Fabio Johnson MD Primary Care: Dr. Shan Christianson MD Status: REG CLI Referring Dr: Johnny Cantu MD Sex: M C Stress Test Report Exercise myocardial perfusion stress test. 63-year-old man with a history of paroxysmal atrial fibrillation coronary artery disease Stress protocol: Resting EKG demonstrates normal sinus rhythm with a rate of 57 bpm resting blood pressure is 120/80 mmHg. The patient exercised according to the regular Long protocol for a total duration of 9 minutes and 30 seconds attaining a maximum heart rate of 136 bpm which was 86% of maximum predicted heart rate; the maximum workload was 11.7 metabolic equivalents. At rest there were no ST or T wave changes noted to suggest ischemia and at peak exercise upsloping ST changes only were noted which did not meet the criteria for ischemia. No clinical angina was noted the test was terminated due to the target heart rate being achieved/fatigue. The peak blood pressure was 142/82 mmHg. Rate- pressure product was 16,300. Myocardial perfusion protocol. 11.9 mCi of technetium 99m sestamibi was injected at rest. The patient exercised according to regular Long protocol for total duration of 9 minutes and 36 and at peak exercise 34.7 mCi of technetium 99m sestamibi was injected stress images were obtained stress and rest images were reconstructed in comparing the short axis vertical long and horizontal long axis. Gated images were also obtained. Perfusion SPECT analysis: Review of the stress images demonstrate normal uptake of tracer noted in all areas of the myocardium. The resting images similarly demonstrate normal uptake of tracer noted in all areas of the myocardium. No areas of reversibility are noted to suggest ischemia no previous infarct was noted. Gated SPECT analysis: The gated ejection fraction is 61%. Conclusion: Normal exercise myocardial perfusion stress test at a high workload Preserved ejection fraction. 01/21/24 1049 Date Fabio Johnson MD CC: Dr. Shan Christianson MD; Dr. Johnny Cantu MD Date Dictated: 01/21/241044 Date Transcribed: 01/21/241044 Professor Of Architecture: [place] Signed Normal [facility] 12 Lead EKGon 01-08-2024 12 Lead EKG [facility] [address] [place] [address] 12 Lead EKG 01/08/24 0859 MR#: [id number] Acct: [id number] Name: JERAMY WOOD Rep #: [id number] : 1960 63 From: Johnny Cantu MD Attending Dr: Status: DEP ER Ordering Dr: Damion Cuellar DO Date: 01/08/24 Location: ED Sex: M C Admitted: Test Reason : AFIB Blood Pressure : / mmHG Vent. Rate : 089 BPM Atrial Rate : 000 BPM P-R Int : 000 ms QRS Dur : 082 ms QT Int : 320 ms P-R-T Axes : 000 062 061 degrees QTc Int : 389 ms Atrial fibrillation with premature ventricular or aberrantly conducted complexes Abnormal ECG Confirmed by Johnny Cantu ([id number]), editor sound RAS NARAYANAN ([id number]) on 01/09/2024 8:16:41 AM Referred By: VI Confirmed By:Johnny Cantu 01/09/24 0816 Date Johnny Cantu MD CC: Dr. Damion Cuellar DO; Dr. Shan Christianson MD Signed Normal [facility] Basic Metabolic Profile (BMP )on 01-08-2024 BUN/CRE 16.5 RATIO Normal 10-20 [facility] Comment on above: Order Comment: 'TROP ' Serial specimen #1, #2 or #3: 1 Performed By: #### L 500.2500, L100.0100, L501.4020, L501.5200, L501.9520 #### [facility] [address] [place], [address] CA,Total 9.5 mg/dL Normal 8.5-10.1 [facility] Comment on above: Order Comment: 'TROP ' Serial specimen #1, #2 or #3: 1 Performed By: #### L 500.2500, L100.0100, L501.4020, L501.5200, L501.9520 #### [facility] [address] [place], [address] Chloride [Moles/Vol] 108 mmol/L High 98-107 [facility] Comment on above: Order Comment: 'TROP ' Serial specimen #1, #2 or #3: 1 Performed By: #### L 500.2500, L100.0100, L501.4020, L501.5200, L501.9520 #### [facility] [address] [place], [address] CO2 [Moles/Vol] 26.0 mmol/L Normal 21.0-32.0 [facility] Comment on above: Order Comment: 'TROP ' Serial specimen #1, #2 or #3: 1 Performed By: #### L 500.2500, L100.0100, L501.4020, L501.5200, L501.9520 #### [facility] [address] [place], [address] Creatinine [Mass/Vol] 1.21 mg/dL Normal 0.70-1.30 [facility] Comment on above: Order Comment: 'TROP ' Serial specimen #1, #2 or #3: 1 Result Comment: The validity of the calculated GFR GFRAA in patients over 70 years has not been determined. Clinical correlation is essential. Performed By: #### L 500.2500, L100.0100, L501.4020, L501.5200, L501.9520 #### [facility] [address] [place], [address] ECRCL 68.59 ml/min Normal [facility] Comment on above: Order Comment: 'TROP ' Serial specimen #1, #2 or #3: 1 Performed By: #### L 500.2500, L100.0100, L501.4020, L501.5200, L501.9520 #### [facility] [address] [place], [address] EST GFR - AA 78 mL/min Normal >60 [facility] Comment on above: Order Comment: 'TROP ' Serial specimen #1, #2 or #3: 1 Result Comment: Afri can Mauritian GFR Calc Performed By: #### L 500.2500, L100.0100, L501.4020, L501.5200, L501.9520 #### [facility] [address] [place], [address] GAP 5 Normal 5-15 [facility] Comment on above: Order Comment: 'TROP ' Serial specimen #1, #2 or #3: 1 Performed By: #### L 500.2500, L100.0100, L501.4020, L501.5200, L501.9520 #### [facility] [address] [place], [address] GFR/1.73 sq M.predicted among non-blacks MDRD (S/P/Bld) [Vol rate/Area] 64 mL/min/{1.73_m2} Normal >60 [facility] Comment on above: Order Comment: 'TROP ' Serial specimen #1, #2 or #3: 1 Result Comment: Non- GFR Calc Performed By: #### L 500.2500, L100.0100, L501.4020, L501.5200, L501.9520 #### [facility] [address] [place], [address] Glucose [Mass/Vol] 114 mg/dL High 74-106 [facility] Comment on above: Order Comment: 'TROP ' Serial specimen #1, #2 or #3: 1 Result Comment: Fast ing Glucose result from 100 to 125 mg/dL suggests IMPAIRED HOMEOSTASIS per A.D.A. criteria. Performed By: #### L 500.2500, L100.0100, L501.4020, L501.5200, L501.9520 #### [facility] [address] [place], [address] Potassium [Moles/Vol] 4.1 mmol/L Normal 3.5-5.1 [facility] Comment on above: Order Comment: 'TROP ' Serial specimen #1, #2 or #3: 1 Performed By: #### L 500.2500, L100.0100, L501.4020, L501.5200, L501.9520 #### [facility] [address] [place], [address] Sodium [Moles/Vol] 139 mmol/L Normal 136-145 [facility] Comment on above: Order Comment: 'TROP ' Serial specimen #1, #2 or #3: 1 Performed By: #### L 500.2500, L100.0100, L501.4020, L501.5200, L501.9520 #### [facility] [address] [place], [address] Urea nitrogen [Mass/Vol] 20 mg/dL High 7-18 [facility] Comment on above: Order Comment: 'TROP ' Serial specimen #1, #2 or #3: 1 Performed By: #### L 500.2500, L100.0100, L501.4020, L501.5200, L501.9520 #### [facility] [address] [place], [address] CBC W/Diff, Automatedon 12-11 Absolute Lymph 1.27 X10 3/uL Normal 0.83-4.51 [facility] Comment on above: Performed By: #### L 500.2500, L100.0100, L501.4020, L501.5200, L501.9520 #### [facility] [address] [place], [address] Absolute Neut 7.5 X10 3/uL Normal 2.0-7.7 [facility] Comment on above: Performed By: #### L 500.2500, L100.0100, L501.4020, L501.5200, L501.9520 #### [facility] [address] [place], [address] Basophils/100 WBC (Bld) 0.2 % Normal 0-1 [facility] Comment on above: Performed By: #### L 500.2500, L100.0100, L501.4020, L501.5200, L501.9520 #### [facility] [address] [place], [address] Eosinophils/100 WBC (Bld) 0.0 % Normal 0-5 [facility] Comment on above: Performed By: #### L 500.2500, L100.0100, L501.4020, L501.5200, L501.9520 #### [facility] [address] [place], [address] Erythrocyte distribution width (RBC) [Ratio] 13.1 % Normal 11.6-14.6 [facility] Comment on above: Performed By: #### L 500.2500, L100.0100, L501.4020, L501.5200, L501.9520 #### [facility] [address] [place], [address] Hematocrit (Bld) [Volume fraction] 46.3 % Normal 40-54 [facility] Comment on above: Performed By: #### L 500.2500, L100.0100, L501.4020, L501.5200, L501.9520 #### [facility] Laboratory [address] [place], [address] Hemoglobin (Bld) [Mass/Vol] 15.7 g/dL Normal 13.0-16.5 [facility] Comment on above: Performed By: #### L 500.2500, L100.0100, L501.4020, L501.5200, L501.9520 #### [facility] [address] [place], [address] IG% 0.400 Normal 0.0-0.9 [facility] Comment on above: Result Comment: IG% - Immature Granulocytes (promyelocytes, myelocytes and metamyelocytes) > 1% indicates that a LEFT SHIFT is Present. Performed By: #### L 500.2500, L100.0100, L501.4020, L501.5200, L501.9520 #### [facility] [address] [place], [address] Lymphocytes/100 WBC (Bld) 13.5 % Low 19-41 [facility] Comment on above: Performed By: #### L 500.2500, L100.0100, L501.4020, L501.5200, L501.9520 #### [facility] [address] [place], [address] MCH (RBC) [Entitic mass] 31.2 pg Normal 27.0-32.0 [facility] Comment on above: Performed By: #### L 500.2500, L100.0100, L501.4020, L501.5200, L501.9520 #### [facility] [address] [place], [address] MCHC (RBC) [Mass/Vol] 33.9 g/dL Normal 32-36 [facility] Comment on above: Performed By: #### L 500.2500, L100.0100, L501.4020, L501.5200, L501.9520 #### [facility] [address] [place], [address] MCV (RBC) [Entitic vol] 91.9 fL Normal 80-94 [facility] Comment on above: Performed By: #### L 500.2500, L100.0100, L501.4020, L501.5200, L501.9520 #### [facility] [address] [place], [address] Monocytes/100 WBC (Bld) 6.2 % Normal 0-10 [facility] Comment on above: Performed By: #### L 500.2500, L100.0100, L501.4020, L501.5200, L501.9520 #### [facility] [address] [place], [address] Neutrophils/100 WBC (Bld) 79.7 % High 47-70 [facility] Comment on above: Performed By: #### L 500.2500, L100.0100, L501.4020, L501.5200, L501.9520 #### [facility] [address] [place], [address] Nucleated RBC (Bld) [#/Vol] 0 10*3/uL Normal 0-5 [facility] Comment on above: Performed By: #### L 500.2500, L100.0100, L501.4020, L501.5200, L501.9520 #### [facility] [address] [place], [address] Platelet mean volume (Bld) [Entitic vol] 9.7 fL Normal 6.2-12.0 [facility] Comment on above: Performed By: #### L 500.2500, L100.0100, L501.4020, L501.5200, L501.9520 #### [facility] [address] [place], [address] Platelets (Bld) [#/Vol] 173 10*3/uL Normal 150-450 [facility] Comment on above: Performed By: #### L 500.2500, L100.0100, L501.4020, L501.5200, L501.9520 #### [facility] [address] [place], [address] RBC (Bld) [#/Vol] 5.04 10*6/uL Normal 4.6-6.2 [facility] Comment on above: Performed By: #### L 500.2500, L100.0100, L501.4020, L501.5200, L501.9520 #### [facility] [address] [place], [address] RDW SD 44.3 fl High 35.1-43.9 [facility] Comment on above: Performed By: #### L 500.2500, L100.0100, L501.4020, L501.5200, L501.9520 #### [facility] [address] [place], [address] WBC (Bld) [#/Vol] 9.4 10*3/uL Normal 4.4-11.0 [facility] Comment on above: Performed By: #### L 500.2500, L100.0100, L501.4020, L501.5200, L501.9520 #### [facility] [address] [place], [address] Chest 1 View (Portable)on Chest 1 View (Portable) [facility] Imaging Services [address] [place] [address] Chest 1 View (Portable) MR#: [id number] Acct: [id number] Name: JERAMY WOOD Rep #: [id number] : 1960 M 63 From: Edu foote MD PCP: Dr. Shan Christianson MD Status: REG ER Study: Chest 1 View (Portable) Date of Exam: 01/08/24 Exam# [id number] Ordering Dr: [place] [id number] STUDY: X-RAY CHEST REASON FOR EXAM: Male, 63 years old. Palpitations. Coronary artery disease. TECHNIQUE: Single AP portable view of the chest. COMPARISON: Comparison is made with prior study of March 24, 2023. FINDINGS: EKG electrodes are seen. The lungs are clear and expanded. There is no demonstrated pleural abnormality. Normal size heart. Normal mediastinum and martin. Normal visualized pulmonary arteries. Normal visualized aortic arch and descending thoracic aorta. There are degenerative changes of the visualized thoracic spine. Normal visualized ribs, clavicles, and shoulders. There is no demonstrated abnormality of the visualized soft tissue structures of the upper abdomen. RAD/Chest 1 View (Portable) IMPRESSION: Normal x-ray examination of the chest. Electronically Signed: Edu Clayton MD at 10:18 EDT Reading Location ID and State: [facility] / [place] , Service support , CC: Dr. Damion Cuellar DO; Dr. Shan Christianson MD Professor Of Architecture: Signed Normal [facility] Emergency Department Summary on 01-08-2024 Emergency Department Summary [facility] Medical Records Department [address] [place] [address] Emergency Department Summary 01/08/24 MR#: [id number] Acct: [id number] Name: JERAMY WOOD Rep #: [id number] : 1960 63 From: Damion Cuellar DO PCP: Dr. Shan Christianson MD Status:DEP ER Location: ED HPI History of Present Illness Chief Complaint: Palpitations Informant: patient Narrative Narrative: 63-year-old male history of coronary artery disease and paroxysmal atrial fibrillation presenting with atrial fibrillation. Patient states that he had cardiac stents placed last year. He follows locally with cardiology with [facility]. He states that he just turned in a Holter monitor as he has been having increased episodes of what he feels is A-fib. He states that last night he felt his heart racing and believes he was in A-fib. This morning took his morning medications including metoprolol still feels his heart beating irregular just not as fast. Patient is not anticoagulated however he does take Brilinta and aspirin. Per his last cardiology note his [id number] score was 1. Patient denies any current chest pain or shortness of breath. [facility] Medical History Arteriosclerotic coronary artery disease NSTEMI (non-ST elevated myocardial infarction) Cancer Kidney stones GERD (gastroesophageal reflux disease) Irregular heart beat Atrial fibrillation DVT (deep venous thrombosis) Encounter for screening for COVID-19 URI (upper respiratory infection) Pure hypercholesterolemia Paroxysmal atrial fibrillation Cardiomyopathy in other diseases classified elsewhere Family history of hypertension Hyperlipidemia Acute embolism and thrombosis of deep vein of distal lower extremity Palpitations Home Medications ???Medication ???Instructions ???Recorded ???Last Taken ???Type diphenhydramine HCl 50 mg capsule 50 mg PO QHS 12/26/21 Unknown History metoprolol tartrate 25 mg tablet 25 mg PO BID #180 tabs 03/18/23 Unknown Rx aspirin 81 mg tablet,delayed 81 mg PO BREAKFAST #90 tabs 03/27/23 Unknown Rx release ticagrelor 90 mg tablet (Brilinta) 90 mg PO BID 90 days #180 tabs 04/22/23 Unknown Rx atorvastatin 20 mg tablet 20 mg PO .QOD #15 tabs 01/01/24 Unknown Rx coenzyme Q10 100 mg capsule 100 mg PO DAILY #30 caps 01/01/24 Unknown Rx (CoQ-10) Allergy/AdvReac Type Severity Reaction Status Date / Time No Known Allergies Allergy Verified 01/08/24 08:54 Family History Father Martha Gehrig disease Mother Myocardial infarction CAD (coronary artery disease) Brother Myocardial infarction, Onset Age: 60 Hypertension Multiple sclerosis Other Family history of hypertension Surgical History Stented coronary artery (03/26/23) History of appendectomy History of left heart catheterization (LHC) Presence of IVC filter Social History household members: spouse housing: house Smoking Status: Never smoker alcohol intake: current alcohol intake frequency: a few times a week Alcohol type: beer substance use type: does not use caffeine: Yes Type: coffee Number of servings: 2 what type of physical activity do you participate in: none seatbelt use: always do you feel safe at home: Yes ROS ROS ED Constitutional Constitutional ED: Denies chills, fever(s) or weight loss Eyes Eyes: Denies change in vision or diplopia ENT ENT ED: Denies ear pain, rhinorrhea or sore throat Cardiovascular Cardiovascular: Reports palpitations and racing heartbeat; Denies chest pain or orthopnea Respiratory/Chest Respiratory/Chest: Denies cough, dyspnea or orthopnea Gastrointestinal Gastrointestinal: Denies abdominal pain, diarrhea, nausea or vomiting Genitourinary Genitourinary ED: Denies dysuria, hematuria or urinary frequency Musculoskeletal Musculoskeletal: Denies arthralgias or myalgias Integumentary Denies abscess or rash Neurologic Neurologic: Denies headache(s) or weakness Psychiatric Psychiatric: Denies anxiety, depression, suicidal ideation or suicidal thoughts Endocrine Endocrinology: Denies polydipsia, polyphagia or polyuria Allergic/Immunologic Allergic/Immunologic ED: Denies mouth swelling, tongue swelling or urticaria EXAM Physical Exam Const Vital Signs: 01/08/24 08:53 01/08/24 10:53 01/08/24 12:00 Temperature 98.2 F 98 F Temperature Source Temporal Pulse Rate 60 74 81 Respiratory Rate 14 16 18 Blood Pressure 114/82 H 111/79 104/74 Blood Pressure Mean 92 89 84 Pulse Ox 97 99 100 Oxygen Delivery Method Room Air Positive well nourished and well developed General Appearance ED: (more content not included)... Normal [facility] L501.4020on 01-08-2024 TROPONIN-I HS 15 pg/mL Normal 3.0-78.0 [facility] Comment on above: Order Comment: 'TROP ' Serial specimen #1, #2 or #3: 1 Result Comment: Merdeith abdi Note: New Test Units and Gender Specific Reference Ranges. For more information see Policy Stat Procedure Ulysses High Sensitivity Troponin (TNIH) and attachments. Performed By: #### L 500.2500, L100.0100, L501.4020, L501.5200, L501.9520 #### [facility] [address] [place], [address] Magnesiumon 01-08-2024 Magnesium [Mass/Vol] 2.2 mg/dL Normal 1.6-2.6 [facility] Comment on above: Order Comment: 'TROP ' Serial specimen #1, #2 or #3: 1 Performed By: #### L 500.2500, L100.0100, L501.4020, L501.5200, L501.9520 ####[facility] [address] [facility] [place], [place], [id number] Thyroid Stim Hormone (TSH)on 01-08-2024 TSH 0.783 uIU/mL Normal 0.358-3.740 [facility] Comment on above: Order Comment: 'TROP ' Serial specimen #1, #2 or #3: 1 Performed By: #### L 500.2500, L100.0100, L501.4020, L501.5200, L501.9520 ####[facility] [address] [place], [address] CNOVon 01-05-2024 CNOV Office Visit (FAMPWS ) JERAMY WOOD ([id number]) 1960 M Date Time Provider Department 01/05/24 9:00 [facility] visit today, we recorded the following information about you: Pulse Respiration Blood pressure Weight 59/minute 14/minute 125/85 83 kg Height 1.829 m Karthik Wylie APRN.PROOF PLATE MAKER 01/05/2024 9:12 AM Signed Chief Complaint Patient presents with: Physical HPI Jeramy Wood is a 63 year old male who presents here today for Above Complaints.. Patient presents for annual physical for disability. Past medical history, appointments, medications, allergies reviewed. Previous Medical History PAST MEDICAL HISTORY 02/26/2013: Abdominal wall hernia 01/01/2022: Abdominal wall pain 03/13/2016: Acquired abdominal wall defect No date: Acute embolism and thrombosis of deep vein of distal lower extremity (HCC) 06/01/2010: Acute renal failure (HCC) Comment: SECONDARY TO SEPTIC SHOCK, RECOVERED ON OWN 03/10/2017: Anxiety 12/18/2005: Atrial fibrillation (HCC) 02/08/2019: Benign prostatic hyperplasia with urinary frequency Comment: Sees Kay Duran NP with Dr. Jama 05/21/2022: BPH (benign prostatic hyperplasia) Comment: Dr. Jama. S/p TURP No date: Cardiomyopathy in diseases classified elsewhere (HCC) 02/08/2019: Cardiomyopathy, nonischemic (HCC) Comment: associated with atrial fibrillation--well controlled. 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 Maher 06/01/2010: Septic shock(785.52) FOUND 06-01-10: Small bowel obstruction ([facility]) Comment: ? FROM LAPRASCOPUIC HERNIA SURGERY 12/29/2020: Well adult exam Comment: Last done: 01/01/2022 Previous Surgical History PAST SURGICAL HISTORY 05/30/2010: ARTL CATHJ/CANNULJ MNTR/TRANSFUSION SPX PRQ Comment: 03/2023: CC CORONARY STENT Comment: stent to LAD 07/03/2010: COLONOSCOPY 06/13/2010: EXPLORATION ABDOMINAL WALL Comment: evacuation abdominal hematoma 06/02/2010: EXPLORATORY LAPAROTOMY, CELIOTOMY-SP Comment: placement of abdominal vac-pack 06/02/2010: EXPLORATORY LAPAROTOMY, CELIOTOMY-SP Comment: bowel resection, abdominal wash out 06/08/2010: EXPLORATORY LAPAROTOMY, CELIOTOMY-SP Comment: small bowel anastomosis 05/28/2010: INGUINAL HERNIA REPAIR HX; Bilateral 07/19/2010: IR IVC FILTER PLACEMENT Comment: [employer] Eclipse Filter 2020: LAPAROSCOPY APPENDECTOMY 1980: NASAL SEPTUM REPOS W STABILIZATION 06/05/2010: PAST SURGICAL HISTORY OF Comment: reopening of recent laparotomy 06/11/2010: PAST SURGICAL HISTORY OF Comment: reopening of recent laparotomy, removal infected mesh 06/14/2010: PAST SURGICAL HISTORY OF Comment: reopening of recent laparotomy, abdominal wash out No date: PAST SURGICAL HISTORY OF; Left Comment: Heart catheterization 03/26/2023: PT [facility]ULAR Comment: mid [facility] 05/2022: TRANSURETHRAL ELEC-SURG PROSTATECTOM 07/02/2010: UPPER GI ENDOSCOPY DIAGNOSTIC Family History FAMILY HISTORY Problem Relation Age of Onset Colon Cancer Mother 70 Coronary Artery Disease Mother other (Heart Disease) Mother other (amyotropic lateral sclerosis) Father Multiple Sclerosis Brother Multiple Sclerosis Sister Diabetes Maternal Grandfather Patient Allergies ALLERGIES Allergen Reactions Lipitor [Atorvastat* Myalgia Current Medications Current Outpatient Medications on File Prior to Visit Medication Sig diclofenac (VOLTAREN ARTHRITIS PAIN) 1 % topical gel Apply 4 g to affected area four times daily. aspirin 81 mg cap Take 81 mg by mouth once daily. ticagrelor (BRILINTA) 90 mg tablet TWICE A DAY metoprolol tartrate, short acting, (LOPRESSOR) 25 mg tablet Take 1 tablet by mouth twice daily. COMPOUNDED PRESCRIPTION OTC sleep aid Diphenhydramine 50 mg No current facility-administered medications on file prior to visit. Social History Social History Tobacco Use Smoking status: Never Smokeless tobacco: Never Vaping Use Vaping status: Never Used Substance Use Topics Alcohol use: Not Currently Comment: SOCIAL BEER Drug use: No Review of Symptoms REVIEW OF SYSTEMS SEE HPI EXAM: BP 125/85 Pulse (!) 59 Resp 14 Ht 182.9 cm (6') Wt 83 kg (183 lb) BMI 24.82 kg/m? Ge (more content not included)... Normal [facility] 12 Lead EKG performed by [facility] on 01-01-2024 12 Lead EKG performed by [id number] [place] [address] 12 Lead EKG performed by [facility] 01/01/24 0959 MR#: [id number] Acct: [id number] Name: JERAMY WOOD Rep #: [id number] : 1960 63 From: Mahogany Vera NP FRONT END WEB DESIGNER-C Attending Dr: BRINA Ordaz Status: DEP A CHARANJIT Ordering Dr: Mahogany Vera NP FRONT END WEB DESIGNERLydiaC Date: 01/01/24 Location: [facility] Sex: M C Admitted: [facility]/12 Lead EKG performed by [facility] ECG Report Interpretation ---Sinus Bradycardia WITHIN NORMAL LIMITSElectronically signed on 01/13/2024 at 15:58 by Fabio [employer] Software Version [id number] 01/13/24 1601 Date Mahogany Vera NP FRONT END WEB DESIGNER-C CC: Dr. Shan Christianson MD Date Dictated: 01/01/24958 Date Transcribed: 01/01/24958 Professor Of Architecture: DAVID Signed Normal [facility] Basic Metabolic Profile (BMP )on 01-01-2024 BUN/CRE 11.4 RATIO Normal 10-20 [facility] Comment on above: Performed By: #### L 100.0100, L501.9520, L500.4100, L501.5200, L500.3400, L500.2500 ####[facility] [address] [place], [address] CA,Total 9.2 mg/dL Normal 8.5-10.1 [facility] Comment on above: Performed By: #### L 100.0100, L501.9520, L500.4100, L501.5200, L500.3400, L500.2500 ####[facility] [address] [place], [address] Chloride [Moles/Vol] 106 mmol/L Normal 98-107 [facility] Comment on above: Performed By: #### L 100.0100, L501.9520, L500.4100, L501.5200, L500.3400, L500.2500 ####[facility] [address] [place], [address] CO2 [Moles/Vol] 26.0 mmol/L Normal 21.0-32.0 [facility] Comment on above: Performed By: #### L 100.0100, L501.9520, L500.4100, L501.5200, L500.3400, L500.2500 ####[facility] [address] [place], [address] Creatinine [Mass/Vol] 1.14 mg/dL Normal 0.70-1.30 [facility] Comment on above: Result Comment: The validity of the calculated GFR GFRAA in patients over 70 years has not been determined. Clinical correlation is essential. Performed By: #### L 100.0100, L501.9520, L500.4100, L501.5200, L500.3400, L500.2500 ####[facility] [address] [place], [address] EST GFR - AA 83 mL/min Normal >60 [facility] Comment on above: Result Comment: Afri can Mauritian GFR Calc Performed By: #### L 100.0100, L501.9520, L500.4100, L501.5200, L500.3400, L500.2500 ####[facility] [address] [place], [address] GAP 8 Normal 5-15 [facility] Comment on above: Performed By: #### L 100.0100, L501.9520, L500.4100, L501.5200, L500.3400, L500.2500 ####[facility] [address] [place], [address] GFR/1.73 sq M.predicted among non-blacks MDRD (S/P/Bld) [Vol rate/Area] 69 mL/min/{1.73_m2} Normal >60 [facility] Comment on above: Result Comment: Non- GFR Calc Performed By: #### L 100.0100, L501.9520, L500.4100, L501.5200, L500.3400, L500.2500 ####[facility] [address] [place], [address] Glucose [Mass/Vol] 96 mg/dL Normal 74-106 [facility] Comment on above: Performed By: #### L 100.0100, L501.9520, L500.4100, L501.5200, L500.3400, L500.2500 ####[facility] [address] [place], [address] Potassium [Moles/Vol] 4.2 mmol/L Normal 3.5-5.1 [facility] Comment on above: Performed By: #### L 100.0100, L501.9520, L500.4100, L501.5200, L500.3400, L500.2500 ####[facility] [address] [place], [address] Sodium [Moles/Vol] 140 mmol/L Normal 136-145 [facility] Comment on above: Performed By: #### L 100.0100, L501.9520, L500.4100, L501.5200, L500.3400, L500.2500 ####[facility] [address] [place], [address] Urea nitrogen [Mass/Vol] 13 mg/dL Normal 7-18 [facility] Comment on above: Performed By: #### L 100.0100, L501.9520, L500.4100, L501.5200, L500.3400, L500.2500 ####[facility] [address] [place], [address] CBC W/Diff, Automatedon 08-2 Absolute Lymph 1.65 X10 3/uL Normal 0.83-4.51 [facility] Comment on above: Performed By: #### L 100.0100, L501.9520, L500.4100, L501.5200, L500.3400, L500.2500 ####[facility] [address] [place], [address] Absolute Neut 4.3 X10 3/uL Normal 2.0-7.7 [facility] Comment on above: Performed By: #### L 100.0100, L501.9520, L500.4100, L501.5200, L500.3400, L500.2500 ####[facility] [address] [place], [address] Basophils/100 WBC (Bld) 0.6 % Normal 0-1 [facility] Comment on above: Performed By: #### L 100.0100, L501.9520, L500.4100, L501.5200, L500.3400, L500.2500 ####[facility] [address] [place], [address] Eosinophils/100 WBC (Bld) 5.4 % High 0-5 [facility] Comment on above: Performed By: #### L 100.0100, L501.9520, L500.4100, L501.5200, L500.3400, L500.2500 ####[facility] [address] [place], [address] Erythrocyte distribution width (RBC) [Ratio] 13.2 % Normal 11.6-14.6 [facility] Comment on above: Performed By: #### L 100.0100, L501.9520, L500.4100, L501.5200, L500.3400, L500.2500 ####[facility] [address] [place], [address] Hematocrit (Bld) [Volume fraction] 45.6 % Normal 40-54 [facility] Comment on above: Performed By: #### L 100.0100, L501.9520, L500.4100, L501.5200, L500.3400, L500.2500 ####[facility] [address] [place], [address] Hemoglobin (Bld) [Mass/Vol] 15.1 g/dL Normal 13.0-16.5 [facility] Comment on above: Performed By: #### L 100.0100, L501.9520, L500.4100, L501.5200, L500.3400, L500.2500 ####[facility] [address] [place], [address] IG% 0.300 Normal 0.0-0.9 [facility] Comment on above: Result Comment: IG% - Immature Granulocytes (promyelocytes, myelocytes and metamyelocytes) > 1% indicates that a LEFT SHIFT is Present. Performed By: #### L 100.0100, L501.9520, L500.4100, L501.5200, L500.3400, L500.2500 ####[facility] [address] [place], [address] Lymphocytes/100 WBC (Bld) 24.0 % Normal 19-41 [facility] Comment on above: Performed By: #### L 100.0100, L501.9520, L500.4100, L501.5200, L500.3400, L500.2500 ####[facility] [address] [place], [address] MCH (RBC) [Entitic mass] 30.8 pg Normal 27.0-32.0 [facility] Comment on above: Performed By: #### L 100.0100, L501.9520, L500.4100, L501.5200, L500.3400, L500.2500 ####[facility] [address] [place], [address] MCHC (RBC) [Mass/Vol] 33.1 g/dL Normal 32-36 [facility] Comment on above: Performed By: #### L 100.0100, L501.9520, L500.4100, L501.5200, L500.3400, L500.2500 ####[facility] [address] [place], [address] MCV (RBC) [Entitic vol] 92.9 fL Normal 80-94 [facility] Comment on above: Performed By: #### L 100.0100, L501.9520, L500.4100, L501.5200, L500.3400, L500.2500 ####[facility] [address] [place], [address] Monocytes/100 WBC (Bld) 8.0 % Normal 0-10 [facility] Comment on above: Performed By: #### L 100.0100, L501.9520, L500.4100, L501.5200, L500.3400, L500.2500 ####[facility] [address] [place], [address] Neutrophils/100 WBC (Bld) 61.7 % Normal 47-70 [facility] Comment on above: Performed By: #### L 100.0100, L501.9520, L500.4100, L501.5200, L500.3400, L500.2500 ####[facility] [address] [place], [address] Nucleated RBC (Bld) [#/Vol] 0 10*3/uL Normal 0-5 [facility] Comment on above: Performed By: #### L 100.0100, L501.9520, L500.4100, L501.5200, L500.3400, L500.2500 ####[facility] [address] [place], [address] Platelet mean volume (Bld) [Entitic vol] 9.6 fL Normal 6.2-12.0 [facility] Comment on above: Performed By: #### L 100.0100, L501.9520, L500.4100, L501.5200, L500.3400, L500.2500 ####[facility] [address] [place], [address] Platelets (Bld) [#/Vol] 145 10*3/uL Low 150-450 [facility] Comment on above: Performed By: #### L 100.0100, L501.9520, L500.4100, L501.5200, L500.3400, L500.2500 ####[facility] [address] [place], [address] RBC (Bld) [#/Vol] 4.91 10*6/uL Normal 4.6-6.2 [facility] Comment on above: Performed By: #### L 100.0100, L501.9520, L500.4100, L501.5200, L500.3400, L500.2500 ####[facility] [address] [place], [address] RDW SD 44.6 fl High 35.1-43.9 [facility] Comment on above: Performed By: #### L 100.0100, L501.9520, L500.4100, L501.5200, L500.3400, L500.2500 ####[facility] [address] [place], [address] WBC (Bld) [#/Vol] 6.9 10*3/uL Normal 4.4-11.0 [facility] Comment on above: Performed By: #### L 100.0100, L501.9520, L500.4100, L501.5200, L500.3400, L500.2500 ####[facility] [address] [place], [address] Cardiology Visit Reporton Cardiology Visit Report [facility] [address] [place], [place] [address] OFFICE VISIT Date of Service: 01/01/24 MR#: [id number] Acct: [id number] Name: JERAMYY Rep #: [id number] : 1960 Provider: BRINA Madsen rts Age/Sex: 63/M Location: [facility] Status: Signed [facility] History of Present Illness Details: JERAMY WOOD, is a 63 M who presents to the office today for a cardiovascular follow-up with a history of previous non CAD related cardiomyopathy, paroxysmal atrial fibrillation, and hyperlipidemia. He presented the emergency department 03/24/2023 for chest pain. He was admitted for non-ST elevated myocardial infarction. He underwent heart cath station 03/26/2023 that showed left main is angiographically normal, LAD with 90% stenosis, LCx with no significant stenosis, and a dominant large RCA. He proceeded with drug-eluting stent to mid LAD. He was noted to have atrial fibrillation during admission. Echocardiogram showed an ejection fraction of 50-55% and no significant valvular abnormality. From a cardiac standpoint, the patient is doing well. He does acknowledge occasional palpitations. He states that he did have palpitations last night-he states this was a fluttering sensation and his heart rate was in the 70's. He states he thinks he was in atrial fibrillation. He denies chest pain, pressure or heaviness. He does acknowledge occasional SOB with the palpitations. He denies Orthopnea, and PND. He does not have bleeding issues; no blood in urine, stool or nosebleeds. He does acknowledge myalgias. He states he has decreased his atorvastatin to 40mg every third day. He denies any decrease in energy level, or claudication. He does not have edema, or sudden weight gain. He denies dizziness, lightheadedness, syncopal or near syncopal episodes, and headaches. Intake Vital Signs 12/16/23 09:46 01/01/24 10:24 Height 6 ft 6 in 6 ft 6 in Weight: 182 lb BMI 21.0 BP 119/75 Blood Pressure Location Lt brachial Position Sitting Respiration 18 Pulse 60 Pulse Source Monitor Pulse Oximetry (%) 96 Intake Visit Reasons: Back in atrial fib for 2 weeks Stephanie Veneer Patcher Required: No Is patient in pain?: No Allergies No Known Allergies Allergy (Verified 01/01/24 10:25) Medications ???Medication ???Instructions ???Recorded ???Confirmed ???Type diphenhydramine HCl 50 mg capsule 50 mg PO QHS 12/26/21 01/01/24 History metoprolol tartrate 25 mg tablet 25 mg PO BID #180 tabs 03/18/23 01/01/24 Rx aspirin 81 mg tablet,delayed 81 mg PO BREAKFAST #90 tabs 03/27/23 01/01/24 Rx release ticagrelor 90 mg tablet (Brilinta) 90 mg PO BID 90 days #180 tabs 04/22/23 01/01/24 Rx atorvastatin 20 mg tablet 20 mg PO .QOD #15 tabs 01/01/24 01/01/24 Rx coenzyme Q10 100 mg capsule 100 mg PO DAILY #30 caps 01/01/24 01/01/24 Rx (CoQ-10) [facility] Medical History (Reviewed 01/01/24 @ 10:25 by Mahogany Vera FRONT END WEB DESIGNER, FRONT END WEB DESIGNER-C) Arteriosclerotic coronary artery disease NSTEMI (non-ST elevated myocardial infarction) Cancer Kidney stones GERD (gastroesophageal reflux disease) Irregular heart beat Atrial fibrillation DVT (deep venous thrombosis) Encounter for screening for COVID-19 URI (upper respiratory infection) Pure hypercholesterolemia Paroxysmal atrial fibrillation Cardiomyopathy in other diseases classified elsewhere Family history of hypertension Hyperlipidemia Acute embolism and thrombosis of deep vein of distal lower extremity Palpitations Surgical History Stented coronary artery (03/26/23) History of appendectomy History of left heart catheterization (LHC) Presence of IVC filter Family History Father Martha Gehrig disease Mother Myocardial infarction CAD (coronary artery disease) Brother Myocardial infarction, Onset Age: 60 Hypertension Multiple sclerosis Other Family history of hypertension Social History household members: spouse housing: house Smoking Status: Never smoker alcohol intake: current alcohol intake frequency: a few times a week Alcohol type: beer substance use type: does not use caffeine: Yes Type: coffee Number of servings: 2 what type of physical activity do you participate in: none seatbelt use: always do you feel safe at home: Yes ROS Const Const: Negative for fatigue, weakness, fever(s), headache(s), chills, frequent falls, weight gain or weight loss Eyes Eyes: Negative for blind spots, loss of peripheral vision, transient loss of vision, blurry vision, change in vision, double vision, floaters or tunnel vision ENT ENT: Negative for headache(s), dizziness, Nosebleed/epistaxis, balance (more content not included)... Normal [facility] Lipid Profileon 01-01-2024 Cholesterol [Mass/Vol] 130 mg/dL Normal 200 [facility] Comment on above: Result Comment: <200 mg/dL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 [facility] ALT [Catalytic activity/Vol] 41 U/L 16-61 [facility] CO2 [Moles/Vol] 23.0 mmol/L 21.0-32.0 [facility] Globulin (S) [Mass/Vol] 3.4 g/dL 2.2-4.2 [facility] Urea nitrogen/Creatinine [Mass ratio] 12.4 mg/mg 10-20 [facility] Laboratory - Hematology and Cell countsOrdered By: Dr. Shukla on 05-16-2022 Erythrocyte distribution width (RBC) [Entitic vol] 42.8 fL 35.1-43.9 [facility] Erythrocyte distribution width (RBC) [Ratio] 12.7 % 11.6-14.6 [facility] Immature granulocytes/100 WBC (Bld) 0.800 % 0.0-0.9 [facility] Comment on above: IG% - Immature Granu locytes (promyelocytes, myelocytes and metamyelocytes) > 1% indicates that a LEFT SHIFT is Present. MCH (RBC) [Entitic mass] 30.7 pg 27.0-32.0 [facility] Nucleated RBC/100 WBC (Bld) [Ratio] 0.5 % 0-5 [facility] MCHC Auto (RBC) [Mass/Vol]Or dered By: Dr. Shukla on 05-16-2022 MCHC (RBC) [Mass/Vol] 33.3 g/dL 32-36 [facility] No Panel InformationOrdered By: Dr. Shukla on 05-16-2022 Estimated Creatinine Clearance Calc 81.09 ml/min [facility] Estimated GFR (MDRD) Amer 92 mL/min >60 [facility] Comment on above: GFR Calc Estimated GFR (MDRD) Non-Af Amer 76 mL/min >60 [facility] Comment on above: Non- GFR Calc Platelets bldOrdered By: Dr. Shukla on 05-16-2022 Platelets (Bld) [#/Vol] 126 10*3/uL 150-450 [facility] Serum or plasma albumin oh urement (mass/volume)Ordered By: Dr. Shukla on 05-16-2022 Albumin [Mass/Vol] 2.3 g/dL 3.2-5.0 [facility] Serum or plasma albumin/glob ulin mass ratioOrdered By: Dr. Shukla on 05-16-2022 Albumin/Globulin [Mass ratio] 0.7 {ratio} 0.9-2.4 [facility] Serum or plasma calcium oh urement (mass/volume)Ordered By: Dr. Shukla on 05-16-2022 Calcium [Mass/Vol] 8.0 mg/dL 8.5-10.1 [facility] Serum or plasma creatinine m easurement (mass/volume)Ordered By: Dr. Shukla on 05-16-2022 Creatinine [Mass/Vol] 1.05 mg/dL 0.70-1.30 [facility] Comment on above: The validity of the calculated GFR & GFRAA in patients over 70 years has not been determined. Clinical correlation is essential. Serum or plasma urea nitroge n measurement (mass/volume)Ordered By: Dr. Shukla on 05-16-2022 Urea nitrogen [Mass/Vol] 13 mg/dL 7-18 [facility] Thin prep Papanicolaou smear with manual screeningOrdered By: Dr. Shukla on 05-16-2022 Thin prep Papanicolaou smear with manual screening 23 U/L 15-37 [facility] Thin prep Papanicolaou smear with manual screening 8 5-15 [facility] Culture, urineOrdered By: Dr Nydia Cheney on 05-15-2022 Bacteria identified Cx Nom (U) Pseudomonas aeroginosa [facility] Laboratory - Microbiology an d Antimicrobial susceptibilityOrdered By: Dr. Cheney on 05-15-2022 Bacteria identified Cx Nom (Bld) GNR Poss Pseudomonas sp [facility] Basophil percentageOrdered B y: Dr. Cheney on 05-13-2022 Basophil percentage >100 SEEN /hpf 0-5 [facility] Bilirubin Test strip Ql (U)O rdered By: Dr. Cheney on 05-13-2022 Bilirubin Ql (U) Negative Negative [facility] Blood manual differential co mment interpretation (narrative result)Ordered By: Dr. Gee on 05-13-2022 Manual differential comment Lake (Bld) [Interp] SCANNED [facility] Comment on above: BANDS NOTED INR in Blood by Coagulation assayOrdered By: Dr. Cheney on 05-13-2022 INR Coag (Bld) [Relative time] 1.1 {INR} [facility] Influenza virus A and B and SARS-CoV-2 (COVID-19) Ag panel - Upper respiratory specimOrdered By: Dr. Cheney on 05-13-2022 SARS-CoV-2 (COVID-19) RNA JENNIFER+probe Ql (Resp) [facility] Ketones Test strip Ql (U)Ord ered By: Dr. Cheney on 05-13-2022 Ketones Ql (U) Negative Negative [facility] Laboratory - CoagulationOrde red By: Dr. Cheney on 05-13-2022 aPTT Coag (Bld) [Time] 25.7 s 24.1-36.2 [facility] PT Coag (PPP) [Time] 13.4 s 11.7-14.9 [facility] Mucus LM Ql (Urine sed)Order ed By: Dr. Cheney on 05-13-2022 Mucus Ql (Urine sed) 0 SEEN /hpf [facility] Nitrite Test strip Ql (U)Ord ered By: Dr. Cheney on 05-13-2022 Nitrite Ql (U) Negative Negative [facility] Protein Test strip Ql (U)Ord ered By: Dr. Cheney on 05-13-2022 Protein Ql (U) 30 mg/dl Negative [facility] Squamous epithelial cells de tection in urine sediment by light microscopyOrdered By: Dr. Cheney on 05-13-2022 Epithelial cells.squamous LM Ql (Urine sed) 0 SEEN /hpf 0-5 [facility] Urine blood detectionOrdered By: Dr. Cheney on 05-13-2022 RBC Ql (U) 25 /ul Negative [facility] RBC Ql (U) 0 SEEN /hpf 0-5 [facility] Urine clarityOrdered By: Dr. Cheney on 05-13-2022 Clarity (U) Sl. Cloudy Clear [facility] Urine color determinationOrd ered By: Dr. Cheney on 05-13-2022 Color (U) Yellow Yellow [facility] Urine glucose detectionOrder ed By: Dr. Cheney on 05-13-2022 Glucose Ql (U) Normal mg/dl Normal [facility] Urine leukocyte esterase det ection by dipstickOrdered By: Dr. Cheney on 05-13-2022 Leukocyte esterase Test strip Ql (U) 500 /ul Negative [facility] Urine pHOrdered By: Dr. Amanda zhu on 05-13-2022 pH (U) 7.0 [pH] 5.0 - 8.0 [facility] Urine sediment bacteria coun t by microscopy (number/high power field)Ordered By: Dr. Cheney on 05-13-2022 Bacteria LM.HPF (Urine sed) [#/Area] 1 /[HPF] None Seen [facility] Urine specific gravity measu rementOrdered By: Dr. Cheney on 05-13-2022 Specific gravity (U) [Rel density] 1.010 1.002-1.030 [facility] Urobilinogen Auto test strip Ql (U)Ordered By: Dr. Cheney on 05-13-2022 Urobilinogen Ql (U) Normal mg/dl Normal [facility] Absolute lymphocyte counton 05-12-2022 Lymphocytes Auto (Unsp spec) [#/Vol] 0.53 10*3/uL 0.83-4.51 [facility] Work Phone: Basophil percentageon 2022 Basophils/100 WBC (Bld) 0.1 % 0-1 [facility] Work Phone: Bilirubin [Mass/Vol] 0.50 mg/dL 0.20-1.00 [facility] Work Phone: Comment on above: For patients on eltr ombopag therapy, use of Dimension Ulysses TBIL is not recommended. Chloride [Moles/Vol] 110 mmol/L 98-107 [facility] Work Phone: Eosinophils/100 WBC (Bld) 1.9 % 0-5 [facility] Work Phone: Glucose [Mass/Vol] 117 mg/dL 74-106 [facility] Work Phone: Comment on above: Fasting Glucose resu lt from 100 to 125 mg/dL suggests IMPAIRED HOMEOSTASIS per A.D.A. criteria. Neutrophils (Bld) [#/Vol] 7.6 10*3/uL 2.0-7.7 [facility] Work Phone: Neutrophils/100 WBC (Bld) 89.9 % 47-70 [facility] Work Phone: Potassium [Moles/Vol] 3.6 mmol/L 3.5-5.1 [facility] Work Phone: Protein [Mass/Vol] 6.9 g/dL 6.4-8.2 [facility] Work Phone: Sodium [Moles/Vol] 140 mmol/L 136-145 [facility] Work Phone: WBC (Bld) [#/Vol] 8.4 10*3/uL 4.4-11.0 [facility] Work Phone: Basophil percentageOrdered B y: Dr. Cheney on 05-12-2022 Lactate [Moles/Vol] 1.3 mmol/L 0.4-2.0 [facility] Blood erythrocytes count (nu mber/volume)on 05-12-2022 RBC (Bld) [#/Vol] 4.55 10*6/uL 4.6-6.2 [facility] Work Phone: Blood hemoglobin measurement (mass/volume)on 05-12-2022 Hemoglobin (Bld) [Mass/Vol] 14.2 g/dL 13.0-16.5 [facility] Work Phone: Blood lymphocytes/100 leukoc yteson 05-12-2022 Lymphocytes/100 WBC (Bld) 6.3 % 19-41 [facility] Work Phone: Blood manual differential co mment interpretation (narrative result)on 05-12-2022 Manual differential comment Lake (Bld) [Interp] SCANNED [facility] Work Phone: Blood monocytes/100 leukocyt eson 05-12-2022 Monocytes/100 WBC (Bld) 1.3 % 0-10 [facility] Work Phone: Blood platelet mean volumeon 05-12-2022 Platelet mean volume (Bld) [Entitic vol] 9.5 fL 6.2-12.0 [facility] Work Phone: Determination of erythrocyte mean corpuscular volume (MCV)on 05-12-2022 MCV (RBC) [Entitic vol] 90.5 fL 80-94 [facility] Work Phone: Hematocrit Auto (Bld) [Volum e fraction]on 05-12-2022 Hematocrit (Bld) [Volume fraction] 41.2 % 40-54 [facility] Work Phone: Laboratory - Chemistry and C hemistry - challengeon 05-12-2022 ALP [Catalytic activity/Vol] 107 U/L 45-117 [facility] Work Phone: ALT [Catalytic activity/Vol] 81 U/L 16-61 [facility] Work Phone: [phone] CO2 [Moles/Vol] 24.0 mmol/L 21.0-32.0 [facility] Work Phone: Globulin (S) [Mass/Vol] 3.5 g/dL 2.2-4.2 [facility] Work Phone: Urea nitrogen/Creatinine [Mass ratio] 12.4 mg/mg 10-20 [facility] Work Phone: Laboratory - Hematology and Cell countson 05-12-2022 Erythrocyte distribution width (RBC) [Entitic vol] 40.8 fL 35.1-43.9 [facility] Work Phone: Erythrocyte distribution width (RBC) [Ratio] 12.3 % 11.6-14.6 [facility] Work Phone: Immature granulocytes/100 WBC (Bld) 0.500 % 0.0-0.9 [facility] Work Phone: Comment on above: IG% - Immature Granu locytes (promyelocytes, myelocytes and metamyelocytes) > 1% indicates that a LEFT SHIFT is Present. MCH (RBC) [Entitic mass] 31.2 pg 27.0-32.0 [facility] Work Phone: Nucleated RBC/100 WBC (Bld) [Ratio] 0 % 0-5 [facility] Work Phone: MCHC Auto (RBC) [Mass/Vol]on 05-12-2022 MCHC (RBC) [Mass/Vol] 34.5 g/dL 32-[facility]: No Panel Informationon 05-12 Estimated Creatinine Clearance Calc 66.00 ml/min [facility] Work Phone: Estimated GFR (MDRD) Amer 73 mL/min >60 [facility] Work Phone: Comment on above: GFR Calc Estimated GFR (MDRD) Non-Af Amer 60 mL/min >60 [facility] Work Phone: Comment on above: Non- GFR Calc Platelets bldon 05-12-2022 Platelets (Bld) [#/Vol] 138 10*3/uL 150-450 [facility] Work Phone: Serum or plasma albumin oh urement (mass/volume)on 05-12-2022 Albumin [Mass/Vol] 3.4 g/dL 3.2-5.0 [facility] Work Phone: Serum or plasma albumin/glob ulin mass ratioon 05-12-2022 Albumin/Globulin [Mass ratio] 1.0 {ratio} 0.9-2.4 [facility] Work Phone: Serum or plasma calcium oh urement (mass/volume)on 05-12-2022 Calcium [Mass/Vol] 8.8 mg/dL 8.5-10.1 [facility] Work Phone: Serum or plasma creatinine m easurement (mass/volume)on 05-12-2022 Creatinine [Mass/Vol] 1.29 mg/dL 0.70-1.30 [facility] Work Phone: Comment on above: The validity of the calculated GFR & GFRAA in patients over 70 years has not been determined. Clinical correlation is essential. Serum or plasma urea nitroge n measurement (mass/volume)on 05-12-2022 Urea nitrogen [Mass/Vol] 16 mg/dL 7-18 [facility] Work Phone: Thin prep Papanicolaou smear with manual screeningon 05-12-2022 Thin prep Papanicolaou smear with manual screening 60 U/L 15-37 [facility] Work Phone: Thin prep Papanicolaou smear with manual screening 6 5-15 [facility] Work Phone: Absolute lymphocyte countOrd ered By: Dr. Taylor on 02-13-2022 Lymphocytes Auto (Unsp spec) [#/Vol] 1.12 10*3/uL 0.83-4.51 [facility] Basophil percentageOrdered B y: Dr. Taylor on 02-13-2022 Basophils/100 WBC (Bld) 0.3 % 0-1 [facility] Chloride [Moles/Vol] 115 mmol/L 98-107 [facility] Eosinophils/100 WBC (Bld) 3.0 % 0-5 [facility] Glucose [Mass/Vol] 80 mg/dL 74-106 [facility] Neutrophils (Bld) [#/Vol] 4.0 10*3/uL 2.0-7.7 [facility] Neutrophils/100 WBC (Bld) 66.6 % 47-70 [facility] Potassium [Moles/Vol] 3.4 mmol/L 3.5-5.1 [facility] Sodium [Moles/Vol] 144 mmol/L 136-145 [facility] WBC (Bld) [#/Vol] 6.0 10*3/uL 4.4-11.0 [facility] Blood erythrocytes count (nu mber/volume)Ordered By: Dr. Taylor on 02-13-2022 RBC (Bld) [#/Vol] 4.05 10*6/uL 4.6-6.2 [facility] Blood hemoglobin measurement (mass/volume)Ordered By: Dr. Taylor on 02-13-2022 Hemoglobin (Bld) [Mass/Vol] 12.7 g/dL 13.0-16.5 [facility] Blood lymphocytes/100 leukoc ytesOrdered By: Dr. Taylor on 02-13-2022 Lymphocytes/100 WBC (Bld) 18.6 % 19-41 [facility] Blood monocytes/100 leukocyt esOrdered By: Dr. Taylor on 02-13-2022 Monocytes/100 WBC (Bld) 10.8 % 0-10 [facility] Blood platelet mean volumeOr dered By: Dr. Taylor on 02-13-2022 Platelet mean volume (Bld) [Entitic vol] 9.7 fL 6.2-12.0 [facility] Determination of erythrocyte mean corpuscular volume (MCV)Ordered By: Dr. Taylor on 02-13-2022 MCV (RBC) [Entitic vol] 94.3 fL 80-94 [facility] Hematocrit Auto (Bld) [Volum e fraction]Ordered By: Dr. Taylor on 02-13-2022 Hematocrit (Bld) [Volume fraction] 38.2 % 40-54 [facility] Laboratory - Chemistry and C hemistry - challengeOrdered By: Dr. Taylor on 02-13-2022 CO2 [Moles/Vol] 23.0 mmol/L 21.0-32.0 [facility] Urea nitrogen/Creatinine [Mass ratio] 8.0 mg/mg 10-20 [facility] Laboratory - Hematology and Cell countsOrdered By: Dr. Taylor on 02-13-2022 Erythrocyte distribution width (RBC) [Entitic vol] 44.3 fL 35.1-43.9 [facility] Erythrocyte distribution width (RBC) [Ratio] 12.8 % 11.6-14.6 [facility] Immature granulocytes/100 WBC (Bld) 0.700 % 0.0-0.9 [facility] Comment on above: IG% - Immature Granu locytes (promyelocytes, myelocytes and metamyelocytes) > 1% indicates that a LEFT SHIFT is Present. MCH (RBC) [Entitic mass] 31.4 pg 27.0-32.0 [facility] Nucleated RBC/100 WBC (Bld) [Ratio] 0 % 0-5 [facility] MCHC Auto (RBC) [Mass/Vol]Or dered By: Dr. Taylor on 02-13-2022 MCHC (RBC) [Mass/Vol] 33.2 g/dL 32-36 [facility] No Panel InformationOrdered By: Dr. Taylor on 02-13-2022 Estimated Creatinine Clearance Calc 52.56 ml/min [facility] Estimated GFR (MDRD) Amer 56 mL/min >60 [facility] Comment on above: GFR Calc Estimated GFR (MDRD) Non-Af Amer 46 mL/min >60 [facility] Comment on above: Non- GFR Calc Platelets bldOrdered By: Dr. Taylor on 02-13-2022 Platelets (Bld) [#/Vol] 111 10*3/uL 150-450 [facility] Serum or plasma calcium oh urement (mass/volume)Ordered By: Dr. Taylor on 02-13-2022 Calcium [Mass/Vol] 8.4 mg/dL 8.5-10.1 [facility] Serum or plasma creatinine m easurement (mass/volume)Ordered By: Dr. Taylor on 02-13-2022 Creatinine [Mass/Vol] 1.62 mg/dL 0.70-1.30 [facility] Comment on above: The validity of the calculated GFR & GFRAA in patients over 70 years has not been determined. Clinical correlation is essential. Serum or plasma urea nitroge n measurement (mass/volume)Ordered By: Dr. Taylor on 02-13-2022 Urea nitrogen [Mass/Vol] 13 mg/dL 7-18 [facility] Thin prep Papanicolaou smear with manual screeningOrdered By: Dr. Taylor on 02-13-2022 Thin prep Papanicolaou smear with manual screening 6 5-15 [facility] Basophil percentageOrdered B y: Dr. Taylor on 02-12-2022 Basophil percentage 2.6 mg/dL 2.5-4.9 [facility] Clostridium difficile detect ion by polymerase chain reactionOrdered By: Dr. Taylor on 02-12-2022 C. difficile DNA JENNIFER+probe Ql (Unsp spec) [facility] Culture, urineOrdered By: Dr Nydia Ford on 02-12-2022 Bacteria identified Cx Nom (U) Culture exhibits no growth. [facility] Laboratory - Chemistry and C hemistry - challengeOrdered By: Dr. Taylor on 02-12-2022 Magnesium [Mass/Vol] 1.9 mg/dL 1.6-2.6 [facility] Laboratory - Microbiology an d Antimicrobial susceptibilityOrdered By: Dr. Taylor on 02-12-2022 SARS-CoV-2 (COVID-19) RNA JENNIFER+probe Ql (Unsp spec) Not detected Not Detect [facility] Comment on above: Normal Reference Ran ge: Not DetectedMethod:(RT-PCR) real-time reverse transcriptase PCRLuminex LEATHA Instrument*The Food and Drug Administration (FDA) has issued an Emergency Use Authorization (EAU) for the LEATHA SARS-CoV-2 Assay for the rapid detection of the virus that causes COVID-19. This test has been validated, but the FDAs independent review of this validation is pending.*Negative results do not preclude infection and should not be used as the sole basis for treatment or patient management. Optimum specimen types and timing for peak viral levels during infections caused by SARS-CoV-2 have not been determined. Collection of multiple specimens from the same patient may be necessary to detect the virus. The possibility of a false negative result should be considered if the patient has clinical presentation or has had recent exposure. Blood platelet adequacy dete ction by light microscopyOrdered By: Dr. Paulino on 02-10-2022 Platelets LM Ql (Bld) MOD DEC ADEQ [facility] Absolute lymphocyte counton 02-09-2022 Lymphocytes Auto (Unsp spec) [#/Vol] 0.33 10*3/uL 0.83-4.51 [facility] Work Phone: Basophil percentageon 2021 Basophils/100 WBC (Bld) 0.2 % 0-1 [facility] Work Phone: Chloride [Moles/Vol] 106 mmol/L 98-107 [facility] Work Phone: Eosinophils/100 WBC (Bld) 0.0 % 0-5 [facility] Work Phone: Glucose [Mass/Vol] 108 mg/dL 74-106 [facility] Work Phone: Comment on above: Fasting Glucose resu lt from 100 to 125 mg/dL suggests IMPAIRED HOMEOSTASIS per A.D.A. criteria. Neutrophils (Bld) [#/Vol] 8.6 10*3/uL 2.0-7.7 [facility] Work Phone: Neutrophils/100 WBC (Bld) 91.3 % 47-70 [facility] Work Phone: Potassium [Moles/Vol] 4.0 mmol/L 3.5-5.1 [facility] Work Phone: Sodium [Moles/Vol] 138 mmol/L 136-145 [facility] Work Phone: WBC (Bld) [#/Vol] 9.5 10*3/uL 4.4-11.0 [facility] Work Phone: Basophil percentageOrdered B y: Dr. Ford on 02-09-2022 Bilirubin [Mass/Vol] 0.70 mg/dL 0.20-1.00 [facility] Comment on above: For patients on eltr ombopag therapy, use of Dimension Ulysses TBIL is not recommended. Lactate [Moles/Vol] 1.2 mmol/L 0.4-2.0 [facility] Protein [Mass/Vol] 6.6 g/dL 6.4-8.2 [facility] Blood erythrocytes count (nu mber/volume)on 02-09-2022 RBC (Bld) [#/Vol] 4.43 10*6/uL 4.6-6.2 [facility] Work Phone: Blood hemoglobin measurement (mass/volume)on 02-09-2022 Hemoglobin (Bld) [Mass/Vol] 13.9 g/dL 13.0-16.5 [facility] Work Phone: [phone] Blood lymphocytes/100 leukoc yteson 02-09-2022 Lymphocytes/100 WBC (Bld) 3.5 % 19-41 [facility] Work Phone: [phone] Blood monocytes/100 leukocyt eson 02-09-2022 Monocytes/100 WBC (Bld) 4.6 % 0-10 [facility] Work Phone: Blood platelet adequacy dete ction by light microscopyon 02-09-2022 Platelets LM Ql (Bld) ADEQUATE ADEQ [facility] Work Phone: Blood platelet mean volumeon 02-09-2022 Platelet mean volume (Bld) [Entitic vol] 9.5 fL 6.2-12.0 [facility] Work Phone: Determination of erythrocyte mean corpuscular volume (MCV)on 02-09-2022 MCV (RBC) [Entitic vol] 92.3 fL 80-94 [facility] Work Phone: Hematocrit Auto (Bld) [Volum e fraction]on 02-09-2022 Hematocrit (Bld) [Volume fraction] 40.9 % 40-54 [facility] Work Phone: INR in Blood by Coagulation assayOrdered By: Dr. Ford on 02-09-2022 INR Coag (Bld) [Relative time] 1.4 {INR} [facility] Laboratory - Chemistry and C hemistry - challengeOrdered By: Dr. Ford on 02-09-2022 ALP [Catalytic activity/Vol] 72 U/L 45-117 [facility] ALT [Catalytic activity/Vol] 73 U/L 16-61 [facility] Globulin (S) [Mass/Vol] 3.5 g/dL 2.2-4.2 [facility] Laboratory - Chemistry and C hemistry - challengeon 02-09-2022 CO2 [Moles/Vol] 24.0 mmol/L 21.0-32.0 [facility] Work Phone: Urea nitrogen/Creatinine [Mass ratio] 14.5 mg/mg 10-20 [facility] Work Phone: Laboratory - CoagulationOrde red By: Dr. Ford on 02-09-2022 PT Coag (PPP) [Time] 16.5 s 11.7-14.9 [facility] Laboratory - Hematology and Cell countson 02-09-2022 Erythrocyte distribution width (RBC) [Entitic vol] 43.0 fL 35.1-43.9 [facility] Work Phone: Erythrocyte distribution width (RBC) [Ratio] 12.6 % 11.6-14.6 [facility] Work Phone: Immature granulocytes/100 WBC (Bld) 0.400 % 0.0-0.9 [facility] Work Phone: Comment on above: IG% - Immature Granu locytes (promyelocytes, myelocytes and metamyelocytes) > 1% indicates that a LEFT SHIFT is Present. MCH (RBC) [Entitic mass] 31.4 pg 27.0-32.0 [facility] Work Phone: Nucleated RBC/100 WBC (Bld) [Ratio] 0 % 0-5 [facility] Work Phone: MCHC Auto (RBC) [Mass/Vol]on 02-09-2022 MCHC (RBC) [Mass/Vol] 34.0 g/dL 32-36 [facility] Work Phone: No Panel Informationon 02-09 Estimated Creatinine Clearance Calc 61.70 ml/min [facility] Work Phone: Estimated GFR (MDRD) Amer 67 mL/min >60 [facility] Work Phone: Comment on above: GFR Calc Estimated GFR (MDRD) Non-Af Amer 56 mL/min >60 [facility] Work Phone: Comment on above: Non- GFR Calc Platelets bldon 02-09-2022 Platelets (Bld) [#/Vol] 104 10*3/uL 150-450 [facility] Work Phone: RBC morphologyOrdered By: Dr Nydia Ford on 02-09-2022 RBC morphology finding Nom (Bld) NORM C+C NORMAL NORM C&C [facility] Serum or plasma albumin oh urement (mass/volume)Ordered By: Dr. Ford on 02-09-2022 Albumin [Mass/Vol] 3.1 g/dL 3.2-5.0 [facility] Serum or plasma albumin/glob ulin mass ratioOrdered By: Dr. Ford on 02-09-2022 Albumin/Globulin [Mass ratio] 0.9 {ratio} 0.9-2.4 [facility] Serum or plasma calcium oh urement (mass/volume)on 02-09-2022 Calcium [Mass/Vol] 9.0 mg/dL 8.5-10.1 [facility] Work Phone: Serum or plasma creatinine m easurement (mass/volume)on 02-09-2022 Creatinine [Mass/Vol] 1.38 mg/dL 0.70-1.30 [facility] Work Phone: Comment on above: The validity of the calculated GFR & GFRAA in patients over 70 years has not been determined. Clinical correlation is essential. Serum or plasma urea nitroge n measurement (mass/volume)on 02-09-2022 Urea nitrogen [Mass/Vol] 20 mg/dL 7-18 [facility] Work Phone: Thin prep Papanicolaou smear with manual screeningOrdered By: Dr. Ford on 02-09-2022 Thin prep Papanicolaou smear with manual screening 48 U/L 15-37 [facility] Thin prep Papanicolaou smear with manual screeningon 02-09-2022 Thin prep Papanicolaou smear with manual screening 8 5-15 [facility] Work Phone: Absolute lymphocyte counton 02-08-2022 Lymphocytes Auto (Unsp spec) [#/Vol] 0.51 10*3/uL 0.83-4.51 [facility] Work Phone: Basophil percentageon 2021 Basophil percentage >100 SEEN /hpf 0-5 [facility] Work Phone: Basophils/100 WBC (Bld) 0.2 % 0-1 [facility] Work Phone: Bilirubin [Mass/Vol] 1.40 mg/dL 0.20-1.00 [facility] Work Phone: Comment on above: For patients on eltr ombopag therapy, use of Dimension Ulysses TBIL is not recommended. Chloride [Moles/Vol] 102 mmol/L 98-107 [facility] Work Phone: Eosinophils/100 WBC (Bld) 0.3 % 0-5 [facility] Work Phone: Glucose [Mass/Vol] 100 mg/dL 74-106 [facility] Work Phone: Comment on above: Fasting Glucose resu lt from 100 to 125 mg/dL suggests IMPAIRED HOMEOSTASIS per A.D.A. criteria. Lactate [Moles/Vol] 1.7 mmol/L 0.4-2.0 [facility] Work Phone: Neutrophils (Bld) [#/Vol] 9.2 10*3/uL 2.0-7.7 [facility] Work Phone: Neutrophils/100 WBC (Bld) 89.3 % 47-70 [facility] Work Phone: Potassium [Moles/Vol] 3.5 mmol/L 3.5-5.1 [facility]: Protein [Mass/Vol] 8.1 g/dL 6.4-8.2 [facility] Work Phone: Sodium [Moles/Vol] 138 mmol/L 136-145 [facility] Work Phone: WBC (Bld) [#/Vol] 10.3 10*3/uL 4.4-11.0 [facility] Work Phone: Bilirubin Test strip Ql (U)o n 02-08-2022 Bilirubin Ql (U) Negative Negative [facility] Work Phone: Blood erythrocytes count (nu mber/volume)on 02-08-2022 RBC (Bld) [#/Vol] 5.06 10*6/uL 4.6-6.2 [facility] Work Phone: Blood hemoglobin measurement (mass/volume)on 02-08-2022 Hemoglobin (Bld) [Mass/Vol] 16.1 g/dL 13.0-16.5 [facility] Work Phone: Blood lymphocytes/100 leukoc yteson 02-08-2022 Lymphocytes/100 WBC (Bld) 4.9 % 19-41 [facility] Work Phone: [phone] Blood monocytes/100 leukocyt eson 02-08-2022 Monocytes/100 WBC (Bld) 4.7 % 0-10 [facility] Work Phone: Blood platelet mean volumeon 02-08-2022 Platelet mean volume (Bld) [Entitic vol] 9.1 fL 6.2-12.0 [facility] Work Phone: Determination of erythrocyte mean corpuscular volume (MCV)on 02-08-2022 MCV (RBC) [Entitic vol] 91.7 fL 80-94 [facility] Work Phone: Hematocrit Auto (Bld) [Volum e fraction]on 02-08-2022 Hematocrit (Bld) [Volume fraction] 46.4 % 40-54 [facility] Work Phone: INR in Blood by Coagulation assayon 02-08-2022 INR Coag (Bld) [Relative time] 1.1 {INR} [facility] Work Phone: Ketones Test strip Ql (U)on 02-08-2022 Ketones Ql (U) Negative Negative [facility] Work Phone: Laboratory - Chemistry and C hemistry - challengeon 02-08-2022 ALP [Catalytic activity/Vol] 88 U/L 45-117 [facility] Work Phone: ALT [Catalytic activity/Vol] 72 U/L 16-61 [facility] Work Phone: CO2 [Moles/Vol] 27.0 mmol/L 21.0-32.0 [facility] Work Phone: Globulin (S) [Mass/Vol] 3.9 g/dL 2.2-4.2 [facility] Work Phone: Urea nitrogen/Creatinine [Mass ratio] 15.4 mg/mg 10-20 [facility] Work Phone: Laboratory - Coagulationon 0 02-08-2022 aPTT Coag (Bld) [Time] 25.3 s 24.1-36.2 [facility] Work Phone: PT Coag (PPP) [Time] 13.8 s 11.7-14.[address] [facility] Work Phone: Laboratory - Hematology and Cell countson 02-08-2022 Erythrocyte distribution width (RBC) [Entitic vol] 41.1 fL 35.1-43.9 [facility] Work Phone: Erythrocyte distribution width (RBC) [Ratio] 12.3 % 11.6-14.6 [facility] Work Phone: Immature granulocytes/100 WBC (Bld) 0.600 % 0.0-0.9 [facility] Work Phone: Comment on above: IG% - Immature Granu locytes (promyelocytes, myelocytes and metamyelocytes) > 1% indicates that a LEFT SHIFT is Present. MCH (RBC) [Entitic mass] 31.8 pg 27.0-32.0 [facility] Work Phone: Nucleated RBC/100 WBC (Bld) [Ratio] 0 % 0-5 [facility] Work Phone: MCHC Auto (RBC) [Mass/Vol]on 02-08-2022 MCHC (RBC) [Mass/Vol] 34.7 g/dL 32-36 [facility] Work Phone: Mucus LM Ql (Urine sed)on Mucus Ql (Urine sed) 0 SEEN /hpf [facility] Work Phone: Nitrite Test strip Ql (U)on 02-08-2022 Nitrite Ql (U) Positive Negative [facility] Work Phone: No Panel Informationon 02-08 Estimated Creatinine Clearance Calc 65.50 ml/min [facility] Work Phone: Estimated GFR (MDRD) Amer 72 mL/min >60 [facility] Work Phone: Comment on above: GFR Calc Estimated GFR (MDRD) Non-Af Amer 60 mL/min >60 [facility] Work Phone: Comment on above: Non- GFR Calc Platelets bldon 02-08-2022 Platelets (Bld) [#/Vol] 109 10*3/uL 150-450 [facility] Work Phone: Protein Test strip Ql (U)on 02-08-2022 Protein Ql (U) 30 mg/dl Negative [facility] Work Phone: Serum or plasma albumin oh urement (mass/volume)on 02-08-2022 Albumin [Mass/Vol] 4.2 g/dL 3.2-5.0 [facility] Work Phone: Serum or plasma albumin/glob ulin mass ratioon 02-08-2022 Albumin/Globulin [Mass ratio] 1.1 {ratio} 0.9-2.4 [facility] Work Phone: Serum or plasma calcium oh urement (mass/volume)on 02-08-2022 Calcium [Mass/Vol] 9.5 mg/dL 8.5-10.1 [facility] Work Phone: Serum or plasma creatinine m easurement (mass/volume)on 02-08-2022 Creatinine [Mass/Vol] 1.30 mg/dL 0.70-1.30 [facility] Work Phone: Comment on above: The validity of the calculated GFR & GFRAA in patients over 70 years has not been determined. Clinical correlation is essential. Serum or plasma urea nitroge n measurement (mass/volume)on 02-08-2022 Urea nitrogen [Mass/Vol] 20 mg/dL 7-18 [facility] Work Phone: Squamous epithelial cells de tection in urine sediment by light microscopyon 02-08-2022 Epithelial cells.squamous LM Ql (Urine sed) 0 SEEN /hpf 0-5 [facility] Work Phone: Thin prep Papanicolaou smear with manual screeningon 02-08-2022 Thin prep Papanicolaou smear with manual screening 70 U/L 15-37 [facility] Work Phone: Thin prep Papanicolaou smear with manual screening 9 5-15 [facility] Work Phone: Urine blood detectionon 01-12 RBC Ql (U) 250 /ul Negative [facility] Work Phone: RBC Ql (U) > 100 SEEN /hpf 0-5 [facility] Work Phone: Urine clarityon 02-08-2022 Clarity (U) Sl. Cloudy Clear [facility] Work Phone: Urine color determinationon 02-08-2022 Color (U) Yellow Yellow [facility] Work Phone: Urine glucose detectionon Glucose Ql (U) Normal mg/dl Normal [facility] Work Phone: Urine leukocyte esterase det ection by dipstickon 02-08-2022 Leukocyte esterase Test strip Ql (U) 500 /ul Negative [facility] Work Phone: Urine pHon 02-08-2022 pH (U) 7.0 [pH] 5.0 - 8.0 [facility] Work Phone: Urine sediment bacteria coun t by microscopy (number/high power field)on 02-08-2022 Bacteria LM.HPF (Urine sed) [#/Area] 0 /[HPF] None Seen [facility] Work Phone: Urine specific gravity measu rementon 02-08-2022 Specific gravity (U) [Rel density] 1.005 1.002-1.030 [facility] Work Phone: Urobilinogen Auto test strip Ql (U)on 02-08-2022 Urobilinogen Ql (U) Normal mg/dl Normal [facility] Work Phone: Office Visiton 01-08-2017 Documentation of current medications (procedure) Done Invalid Interpretation Code [facility] [employer] Work Phone: [phone] Fall risk assessment Fall risk assessment [facility] Work Phone: [phone] Protein mass conc Done [facility] Work Phone: [phone] Replaced Document: Nadia Baltazar CG Observationson 01-08-2017 EKG QRS axis 56 deg [facility] [employer] Work Phone: [phone] electrocardiogram interpretation Sinus Rhythm -Poor R-wave progression -nonspecific -consider old anterior infarct. BORDERLINE Invalid Interpretation Code [facility] [employer] Work Phone: GE use only - for [employer] import when terms are not otherwise specified 382 ms Invalid Interpretation Code [facility] Phone: [phone] P [place] 64 deg [facility] Work Phone: [phone] P wave axis, electrocardiogram 64 deg Invalid Interpretation Code [facility] Work Phone: [phone] IA Interval 210 ms [facility] Work Phone: [phone] IA interval, electrocardiogram 210 ms Invalid Interpretation Code [facility] Work Phone: [phone] Protein mass conc Sinus Rhythm -Poor R-wave progression -nonspecific -consider old anterior infarct. BORDERLINE [facility] Work Phone: [phone] Pulse (Heart Rate) 65 /min Invalid Interpretation Code [facility] Work Phone: [phone] QRS axis, electrocardiogram 56 deg Invalid Interpretation Code [facility] Phone: [phone] QRS Duration 94 ms [facility] Work Phone: [phone] QRS duration, electrocardiogram 94 ms Invalid Interpretation Code [facility] Work Phone: [phone] QT Interval new path ms [facility] Work Phone: [phone] QT interval, electrocardiogram new path ms Invalid Interpretation Code [facility] Work Phone: [phone] QTc [place] 382 ms [facility] Work Phone: [phone] T [place] 58 deg [facility] Work Phone: [phone] T wave axis, electrocardiogram 58 deg Invalid Interpretation Code [facility] Work Phone: [phone] Office Visit: FRANSICO brannon Alcoholism counseling (procedure) no Invalid Interpretation Code [facility] Phone: [phone] Dietary management education, guidance, and counseling (procedure) yes Invalid Interpretation Code [facility] Phone: [phone] Documentation of current medications (procedure) Done Invalid Interpretation Code [facility] Phone: [phone] Protein mass conc no [facility] Work Phone: [phone] Tobacco smoking status NHIS Never [facility] Work Phone: [phone] Tobacco smoking status NHIS Never smoker [facility] Phone: [phone] Tobacco use CPHS Never smoker Invalid Interpretation Code [facility] Work Phone: [phone] Lab Report: Basic Metabolic Profile (BMP)on 04-23-2016 Anion gap 0 mmol/L Low 5-15 [facility] Work Phone: [phone] Anion gap molar conc 0 mmol/L Low 5-15 [facility] Work Phone: [phone] BUN/Creatinine Ratio 14.8 RATIO 10-[address] [facility] Work Phone: [phone] Calcium 9.1 mg/dL 8.5-10.1 [facility] Work Phone: [phone] Chloride 107 mmol/L 98-107 [facility] Work Phone: [phone] CO2 31.0 mmol/L Invalid Interpretation Code 21.0-32.0 [facility] Work Phone: [phone] CO2 ppres (BldV) 31.0 mmol/L 21.0-32.0 [facility] Work Phone: [phone] Creatinine 1.28 mg/dL 0.70-1.30 [facility] Work Phone: [phone] eGFR (non-black) 75 mL/min/{1.73_m2} Invalid Interpretation Code >60 [facility] Work Phone: [phone] eGFR (non-black) 62 mL/min/{1.73_m2} >60 [facility] Work Phone: [phone] EST GFR - AA 75 mL/min >60 [facility] Work Phone: [phone] Glucose 90 mg/dL Invalid Interpretation Code 70-110 [facility] Work Phone: [phone] Glucose mass conc 90 mg/dL 70-110 [facility] Work Phone: [phone] Potassium 4.3 mmol/L 3.5-5.1 [facility] Work Phone: [phone] Sodium 138 mmol/L 136-145 [facility] Work Phone: [phone] Urea nitrogen 19 mg/dL High 7-18 [facility] Work Phone: [phone] Lab Report: CBC-Complete Blo od Cnt No Diffon 04-23-2016 Erythrocyte distribution width Ratio (RBC) 12.8 % 11.6-14.6 [facility] Work Phone: [phone] Erythrocyte distribution width Ratio (RBC) 41.9 fL 35.1-43.9 [facility] Work Phone: [phone] Erythrocytes (RBC) 5.00 10*6/uL Invalid Interpretation Code 4.6-6.2 [facility] Work Phone: [phone] Hematocrit (HCT) 45.7 % Invalid Interpretation Code 40-54 [facility] Work Phone: [phone] Hematocrit Volume Fraction (Bld) 45.7 % 40-54 [facility] Work Phone: [phone] Hemoglobin (HGB) 16.0 g/dL 13.0-16.5 [facility] Work Phone: [phone] MCH 32.0 pg Invalid Interpretation Code 27.0-32.0 [facility] Work Phone: [phone] MCH Entitic mass (RBC) 32.0 pg 27.0-32.0 [facility] Work Phone: [phone] MCHC 35.0 G/GL Invalid Interpretation Code 32-36 [facility] Work Phone: [phone] MCHC mass conc (RBC) 35.0 G/GL 32-[address] [facility] Work Phone: [phone] MCV 91.4 fL Invalid Interpretation Code 80-94 [facility] Work Phone: [phone] MCV Entitic volume (RBC) 91.4 fL 80-94 [facility] Work Phone: [phone] Platelet mean volume Entitic volume (Bld) 9.7 fL 6.2-12.0 [facility] Work Phone: [phone] Platelets 142 10*3/mm3 Low 150-450 [facility] Work Phone: [phone] Platelets #/vol (Bld) 142 10*3/mm3 Low 150-450 [facility] Work Phone: [phone] PMV by Crys 9.7 fL Invalid Interpretation Code 6.2-12.0 [facility] Work Phone: [phone] RBC #/vol (Bld) 5.00 10*6/uL 4.6-6.2 [facility] Work Phone: [phone] RDW-CA 12.8 % Invalid Interpretation Code 11.6-14.6 [facility] Work Phone: [phone] red blood cell distribution width, size density 41.9 fL Invalid Interpretation Code 35.1-43.9 [facility] Work Phone: [phone] WBC #/vol (Bld) 5.7 10*3/uL 4.4-11.0 [facility] Work Phone: [phone] WBC (Leukocytes) 5.7 10*3/uL Invalid Interpretation Code 4.4-11.0 [facility] Work Phone: [phone] Lab Report: Lipid Profileon 04-23-2016 Cholesterol 187 mg/dL 200 [facility] Work Phone: [phone] HDL Cholesterol 46 mg/dL [facility] Work Phone: [phone] LDL Cholesterol 108 mg/dL 0-130 [facility] Work Phone: [phone] Triglyceride 164 mg/dL [facility] Work Phone: [phone] very low density lipoproteins 33 mg/dL 5-40 [facility] Work Phone: [phone] Lab Report: Liver Profileon 04-23-2016 Alanine aminotransferase (ALT) 37 U/L 12-78 [facility] Work Phone: [phone] Albumin 4.1 g/dL 3.4-5.0 [facility] Work Phone: [phone] Alkaline phosphatase (ALP) 64 U/L Invalid Interpretation Code 45-117 [facility] Work Phone: [phone] ALP enzyme act/vol (Bld) 64 U/L 45-117 [facility] Work Phone: [phone] Aspartate aminotransferase (AST) 26 U/L 15-37 [facility] Work Phone: [phone] Bilirubin (direct) 0.20 mg/dL 0.00-0.30 [facility] Work Phone: [phone] Bilirubin (total) 0.90 mg/dL 0.20-1.00 [facility] Work Phone: [phone] Globulin 3.4 g/dL Invalid Interpretation Code 2.3-3.5 [facility] Work Phone: [phone] Globulin mass conc (S) 3.4 g/dL 2.3-3.5 [facility] Work Phone: [phone] Protein 7.5 g/dL 6.4-8.2 [facility] Work Phone: [phone] Lab Report: Magnesiumon 04-11 Magnesium 2.0 mg/dL 1.8-2.4 [facility] Work Phone: [phone]) Lab Report: T4 Total, Thyrox inon 04-23-2016 Thyroxine (T4) 8.8 ug/dL 4.5-12.1 [facility] Work Phone: [phone] Lab Report: Thyroid Stim Hor emily (TSH)on 04-23-2016 Thyroid stimulating hormone (TSH) 0.83 u[iU]/mL 0.358-3.74 [facility] Work Phone: [phone] Lab Report: CBC W/Diff, Auto matedon 04-22-2014 Absolute Neut 4.4 X10 3/UL 2.0-7.7 [facility] Work Phone: [phone] Absolute Neutrophil count 4.4 X10 3/UL Invalid Interpretation Code 2.0-7.7 [facility] Work Phone: [phone] Basophils/100 leukocytes 0.3 % Invalid Interpretation Code 0-1 [facility] Work Phone: [phone] Basophils/100 WBC (Bld) 0.3 % 0-1 [facility] Work Phone: [phone] Eosinophils/100 leukocytes 2.9 % Invalid Interpretation Code 0-5 [facility] Work Phone: [phone] Eosinophils/100 WBC (Bld) 2.9 % 0-5 [facility] Work Phone: Lymphocytes/100 leukocytes 24.3 % Invalid Interpretation Code 19-41 [facility] Work Phone: Lymphocytes/100 WBC (Bld) 24.3 % 19-41 [facility] Work Phone: Monocytes/100 leukocytes 7.1 % Invalid Interpretation Code 0-10 [facility] Work Phone: Monocytes/100 WBC (Bld) 7.1 % 0-10 [facility] Work Phone: Neutrophils/100 leukocytes 65.3 % Invalid Interpretation Code 47-70 [facility] Work Phone: Neutrophils/100 WBC (Bld) 65.3 % 47-70 [facility] Work Phone: Office Visit: [facility] 04-20-20 14 cardiac risk group B [facility] Work Phone: [phone] General cardiovascular disease 10Y risk [#] [place].Ismael'Agogisel 4 % [facility] Work Phone: Replaced Document: Nadia Garciaon 04-23-2013 Pulse (Heart Rate) 386 ms Invalid Interpretation Code [facility] Work Phone: [phone] Clostridium difficile detect ion by polymerase chain reaction C. difficile DNA JENNIFER+probe Ql (Unsp spec) [facility] Work Phone: Culture, urine Bacteria identified Cx Nom (U) Pseudomonas aeroginosa [facility] Work Phone: Bacteria identified Cx Nom (U) Culture exhibits no growth. [facility] Work Phone: Influenza virus A and B and SARS-CoV-2 (COVID-19) Ag panel - Upper respiratory specim SARS-CoV-2 (COVID-19) RNA JENNIFER+probe Ql (Resp) [facility] Work Phone: Laboratory - Microbiology an d Antimicrobial susceptibility Bacteria identified Cx Nom (Bld) Pseudomonas aeroginosa [facility] Work Phone: Bacteria identified Cx Nom (Bld) Enterococcus faecalis [facility] Work Phone: Bacteria identified Cx Nom (Bld) GNR Poss Pseudomonas sp [facility] Work Phone: Bacteria identified Cx Nom (Bld) GPC Poss Enterococcus sp [facility] Work Phone: No Panel Information Bacteria Detection (PCR) [facility] Work Phone: Vital Signs Date Time Vital Sign Value Performing Clinician Facility 05-14-2024 09:56-0500 Body mass index (BMI) [Ratio] 25.23 kg/m2 Karthik Wylie APRN.[employer] Work Phone: [facility] 05-14-2024 09:56-0500 Body weight 84.37 kg Karthik Wylie APRN.[employer] Work Phone: [facility] 05-14-2024 09:56-0500 Diastolic blood pressure 70 mm[Hg] Karthik Wylie APRN.[employer] Work Phone: [facility] 05-14-2024 09:56-0500 Heart rate 73 /min Karthik Wylie APRN.[employer] Work Phone: [facility] 05-14-2024 09:56-0500 Respiratory rate 14 /min Karthik Wylie APRN.[employer] Work Phone: [facility] 05-14-2024 09:56-0500 SaO2% (BldA) [Mass fraction] 96 % Karthik Wylie APRN.[employer] Work Phone: [facility] 05-14-2024 09:56-0500 Systolic blood pressure 108 mm[Hg] Karthik Wylie APRN.[employer] Work Phone: [facility] 04-27-2024 14:01-0500 Body mass index (BMI) [Ratio] 24.95 kg/m2 Shan Christianson MD Work Phone: [facility] 04-27-2024 14:01-0500 Body temperature 97.2 [degF] Shan Christianson MD Work Phone: [facility] 04-27-2024 14:01-0500 Body weight 83.46 kg Shan Christianson MD Work Phone: [facility] 04-27-2024 14:01-0500 Diastolic blood pressure 62 mm[Hg] Shan Christianson MD Work Phone: [facility] 04-27-2024 14:01-0500 Heart rate 75 /min Shan Christianson MD Work Phone: [facility] 04-27-2024 14:01-0500 Respiratory rate 22 /min Shan Christianson MD Work Phone: [facility] 04-27-2024 14:01-0500 SaO2% (BldA) [Mass fraction] 98 % Shan Christianson MD Work Phone: [facility] 04-27-2024 14:01-0500 Systolic blood pressure 102 mm[Hg] Shan Christianson MD Work Phone: [facility] 01-05-2024 08:42-0400 Body height 182.9 cm Karthik Wylie APRN.[employer] Work Phone: [facility] 01-05-2024 08:42-0400 Body mass index (BMI) [Ratio] 24.82 kg/m2 Karthik Wylie APRN.[employer] Work Phone: [facility] 01-05-2024 08:42-0400 Body weight 83.01 kg Karthik Wylie APRN.[employer] Work Phone: [facility] 01-05-2024 08:42-0400 Diastolic blood pressure 85 mm[Hg] Karthik Wylie APRN.[employer] Work Phone: [facility] 01-05-2024 08:42-0400 Heart rate 59 /min Karthik Wylie APRN.[employer] Work Phone: [facility] 01-05-2024 08:42-0400 Respiratory rate 14 /min Karthik Wylie APRN.[employer] Work Phone: [facility] 01-05-2024 08:42-0400 Systolic blood pressure 125 mm[Hg] Karthik Wylie APRN.[employer] Work Phone: [facility] 10-29-2023 09:09-0400 Diastolic blood pressure 68 mm[Hg] Shan Christianson MD Work Phone: [facility] 10-29-2023 09:09-0400 Systolic blood pressure 108 mm[Hg] Shan Christianson MD Work Phone: [facility] 10-29-2023 08:53-0400 Body mass index (BMI) [Ratio] 25.06 kg/m2 Shan Christianson MD Work Phone: [facility] 10-29-2023 08:53-0400 Body temperature 98.01 [degF] Shan Christianson MD Work Phone: [facility] 10-29-2023 08:53-0400 Body weight 83.01 kg Shan Christianson MD Work Phone: [facility] 10-29-2023 08:53-0400 Heart rate 68 /min Shan Christianson MD Work Phone: 8(864)300-041731 [place] [address] 10-29-2023 08:53-0400 Respiratory rate 16 /min Shan Christianson MD Work Phone: [facility] 08-22-2023 08:14-0400 Body height 182.[address] Shan Christianson Work Phone: 6(970)389-248124 [place] [address] 08-22-2023 08:14-0400 Body weight 84.[address] Shan Christianson Work Phone: 6(384)009-389558 [place] [address] 07-25-2023 07:52-0400 Body height 182.[address] Shan Christianson Work Phone: 2(443)233-662524 [place] [address] 07-25-2023 07:52-0400 Body mass index (BMI) [Ratio] 25.2 kg/m2 Dr. Shan Christianson Work Phone: 0(892)205-210124 [place] [address] 07-25-2023 07:52-0400 Body weight 84.[address] Shan Christianson Work Phone: 4(810)503-126458 [place] [address] 07-25-2023 07:52-0400 Diastolic blood pressure 78 mm[Hg] Dr. Shan Christianson Work Phone: 9(686)172-029424 [place] [address] 07-25-2023 07:52-0400 Heart rate 59 /min Dr. Shan Christianson Work Phone: 6(531)737-114358 [place] [address] 07-25-2023 07:52-0400 Respiratory rate 18 /min Dr. Shan Christianson Work Phone: 4(866)822-618258 [place] [address] 07-25-2023 07:52-0400 SaO2% (BldA) [Mass fraction] 97 % Dr. Shan Christianson Work Phone: 8(327)889-463158 [place] [address] 07-25-2023 07:52-0400 Systolic blood pressure 120 mm[Hg] Dr. Shan Christianson Work Phone: 8(333)881-478158 [place] [address] 07-21-2023 08:23-0400 Body weight 85.[address] Shan Christianson Work Phone: 6(072)818-450358 [place] [address] 06-23-2023 10:29-0500 Body mass index (BMI) [Ratio] 26.7 kg/m2 Dr. Shan Christianson Work Phone: 0(522)886-008558 [place] [address] 06-23-2023 10:00-0500 Body height 182.[address] Shan Christianson Work Phone: 1(929)799-286758 [place] [address] 06-23-2023 10:00-0500 Body weight 89.[address] Shan Christianson Work Phone: 6(012)414-819658 [place] [address] 06-23-2023 09:53-0500 Diastolic blood pressure 63 mm[Hg] Dr. Shan Christianson Work Phone: 2(073)382-367058 [place] [address] 06-23-2023 09:53-0500 Heart rate 66 /min Dr. Shan Christianson Work Phone: 5(066)348-654058 [place] [address] 06-23-2023 09:53-0500 Systolic blood pressure 109 mm[Hg] Dr. Shan Christianson Work Phone: 8(877)105-868658 [place] [address] 04-22-2023 09:49-0500 Body mass index (BMI) [Ratio] 26.7 kg/m2 Dr. Shan Christianson Work Phone: 2(066)163-047158 [place] [address] 04-22-2023 09:49-0500 Body weight 89.[address] Shan Christianson Work Phone: [facility] 04-22-2023 09:49-0500 Diastolic blood pressure 63 mm[Hg] Dr. Shan Christianson Work Phone: [facility] 04-22-2023 09:49-0500 Heart rate 66 /min Dr. Shan Christianson Work Phone: [facility] 04-22-2023 09:49-0500 Respiratory rate 16 /min Dr. Shan Christianson Work Phone: [facility] 04-22-2023 09:49-0500 Systolic blood pressure 109 mm[Hg] Dr. Shan Christianson Work Phone: [facility] 04-14-2023 11:53-0500 Body weight 89.27 kg Alivia Podlogar [employer]ORER [employer] Work Phone: [facility] 04-14-2023 11:53-0500 Diastolic blood pressure 84 mm[Hg] Alivia Podlogar [employer]ER [employer] Work Phone: [facility] 04-14-2023 11:53-0500 Heart rate 66 /min Alivia Podlogar [employer] Work Phone: [facility] 04-14-2023 11:53-0500 Respiratory rate 18 /min Alivia Podlogar [employer]ER [employer] Work Phone: [facility] 04-14-2023 11:53-0500 SaO2% (BldA) [Mass fraction] 98 % Alivia Podlogar [employer] Work Phone: [facility] 04-14-2023 11:53-0500 Systolic blood pressure 118 mm[Hg] Alivia Podlogar [employer]ER [employer]OO[employer]KER Work Phone: [facility] 03-27-2023 12:07-0500 Diastolic blood pressure 87 mm[Hg] Dr. Shan Christianson Work Phone: [facility] 03-27-2023 12:07-0500 Heart rate 65 /min Dr. Shan Christianson Work Phone: 2(089)329-611358 [place] [address] 03-27-2023 12:07-0500 Respiratory rate 15 /min Dr. Shan Christianson Work Phone: 9(983)368-502458 [place] [address] 03-27-2023 12:07-0500 SaO2% (BldA) [Mass fraction] 96 % Dr. Shan Christianson Work Phone: 1(253)140-614458 [place] [address] 03-27-2023 12:07-0500 Systolic blood pressure 117 mm[Hg] Dr. Shan Christianson Work Phone: 4(675)925-861758 [place] [address] 03-27-2023 09:16-0500 Body temperature 98 [degF] Dr. Shan Christianson Work Phone: 7(267)660-173658 [place] [address] 03-25-2023 01:11-0500 Body height 182.[address] Shan Christianson Work Phone: 2(218)274-613558 [place] [address] 03-25-2023 01:11-0500 Body mass index (BMI) [Ratio] 26 kg/m2 Dr. Shan Christianson Work Phone: 6(676)405-483958 [place] [address] 03-25-2023 01:11-0500 Body weight 87.[address] Shan Christianson Work Phone: 1(692)660-713358 [place] [address] 03-25-2023 00:15-0500 Diastolic blood pressure 83 mm[Hg] Dr. Shan Christianson Work Phone: 1(510)893-154958 [place] [address] 03-25-2023 00:15-0500 Heart rate 74 /min Dr. Shan Christianson Work Phone: 4(129)849-006758 [place] [address] 03-25-2023 00:15-0500 Respiratory rate 16 /min Dr. Shan Christianson Work Phone: 4(712)209-781258 [place] [address] 03-25-2023 00:15-0500 SaO2% (BldA) [Mass fraction] 98 % Dr. Shan Christianson Work Phone: 9(237)364-971458 [place] [address] 03-25-2023 00:15-0500 Systolic blood pressure 121 mm[Hg] Dr. Shan Christianson Work Phone: 0(023)264-672624 [place] [address] 03-24-2023 20:28-0500 Body height 182.[address] Shan Christianson Work Phone: 8(428)903-158258 [place] [address] 03-24-2023 20:28-0500 Body mass index (BMI) [Ratio] 26.4 kg/m2 Dr. Shan Christianson Work Phone: 3(324)871-621958 [place] [address] 03-24-2023 20:28-0500 Body temperature 98.2 [degF] Dr. Shan Christianson Work Phone: 2(015)611-867158 [place] [address] 03-24-2023 20:28-0500 Body weight 88.[address] Shan Christianson Work Phone: 8(011)946-580058 [place] [address] 03-04-2023 14:32-0400 Body mass index (BMI) [Ratio] 25.9 kg/m2 Dr. Shan Christianson Work Phone: 0(591)802-714958 [place] [address] 03-04-2023 14:32-0400 Body weight 87.[address] Shan Christianson Work Phone: 0(179)075-940658 [place] [address] 03-04-2023 14:32-0400 Diastolic blood pressure 72 mm[Hg] Dr. Shan Christianson Work Phone: 4(559)982-434458 [place] [address] 03-04-2023 14:32-0400 Heart rate 72 /min Dr. Shan Christianson Work Phone: 5(456)906-363724 [place] [address] 03-04-2023 14:32-0400 Respiratory rate 18 /min Dr. Shan Christianson Work Phone: 3(619)562-633624 [place] [address] 03-04-2023 14:32-0400 SaO2% (BldA) [Mass fraction] 95 % Dr. Shan Christianson Work Phone: 2(376)581-202858 [place] [address] 03-04-2023 14:32-0400 Systolic blood pressure 103 mm[Hg] Dr. Shan Christianson Work Phone: 4(898)541-875158 [place] [address] 01-02-2023 11:53-0400 Body height 182 cm Mayuri Collins PA-C Work Phone: [facility] 01-02-2023 11:53-0400 Body temperature 97.7 [degF] Mayuri Collins PA-C Work Phone: [facility] 01-02-2023 11:53-0400 Body weight 86.64 kg Mayuri Collins PA-C Work Phone: [facility] 01-02-2023 11:53-0400 Diastolic blood pressure 70 mm[Hg] Mayuri Collins PA-C Work Phone: [facility] 01-02-2023 11:53-0400 Heart rate 84 /min Mayuri Collins PA-C Work Phone: [facility] 01-02-2023 11:53-0400 Respiratory rate 18 /min Mayuri Collins PA-C Work Phone: [facility] 01-02-2023 11:53-0400 Systolic blood pressure 100 mm[Hg] Mayuri Collins PA-C Work Phone: [facility] 06-04-2022 10:18-0500 Body height 182.2 cm Pulm Wstr Work Phone: [facility] 06-04-2022 10:18-0500 Body weight 84.82 kg Pulm Wstr Work Phone: [facility] 06-04-2022 10:18-0500 Heart rate 81 /min Pulm Wstr Work Phone: [facility] 06-04-2022 10:18-0500 Respiratory rate 14 /min Pulm Wstr Work Phone: [facility] 06-04-2022 10:18-0500 SaO2% (BldA) [Mass fraction] 99 % Pulm [facility]str Work Phone: [facility] 05-31-2022 11:04-0500 Body weight 88.45 kg Shan Christianson MD Work Phone: [facility] 05-31-2022 11:04-0500 Diastolic blood pressure 68 mm[Hg] Shan Christianson MD Work Phone: [facility] 05-31-2022 11:04-0500 Heart rate 84 /min Shan Christianson MD Work Phone: [facility] 05-31-2022 11:04-0500 Respiratory rate 16 /min Shan Christianson MD Work Phone: [facility] 05-31-2022 11:04-0500 Systolic blood pressure 108 mm[Hg] Shan Christianson MD Work Phone: [facility] 05-21-2022 12:52-0500 Body temperature 97.3 [degF] Mayuri Collins PA-C Work Phone: [facility] 05-21-2022 12:52-0500 Body weight 84.73 kg Mayuri Collins PA-C Work Phone: [facility] 05-21-2022 12:52-0500 Diastolic blood pressure 84 mm[Hg] Mayuri Collins PA-C Work Phone: [facility] 05-21-2022 12:52-0500 Heart rate 77 /min Mayuri Collins PA-C Work Phone: [facility] 05-21-2022 12:52-0500 Respiratory rate 16 /min Mayuri Collins PA-C Work Phone: [facility] 05-21-2022 12:52-0500 SaO2% (BldA) [Mass fraction] 95 % Mayuri Collins PA-C Work Phone: [facility] 05-21-2022 12:52-0500 Systolic blood pressure 106 mm[Hg] Mayuri Collins PA-C Work Phone: [facility] 05-16-2022 08:00-0500 Body temperature 98.6 [degF] Dr. Asif Ford Work Phone: [facility] 05-16-2022 08:00-0500 Diastolic blood pressure 74 mm[Hg] Dr. Asif Ford Work Phone: [facility] 05-16-2022 08:00-0500 Heart rate 87 /min Dr. Asif Ford Work Phone: [facility] 05-16-2022 08:00-0500 Respiratory rate 16 /min Dr. Asif Ford Work Phone: [facility] 05-16-2022 08:00-0500 SaO2% (BldA) [Mass fraction] 95 % Dr. Asif Ford Work Phone: [facility] 05-16-2022 08:00-0500 Systolic blood pressure 116 mm[Hg] Dr. Asif Ford Work Phone: 1(068)798-225127 [address] 05-13-2022 05:44-0500 Body height 183.[address] Asif Ford Work Phone: 7(388)320-939054 [place] [address] 05-13-2022 05:44-0500 Body mass index (BMI) [Ratio] 26.5 kg/m2 Dr. Asif Ford Work Phone: 8(863)146-180227 [address] 05-13-2022 05:44-0500 Body weight [address] Asif Ford Work Phone: 2(336)525-795927 [address] 05-13-2022 05:09-0500 Body temperature 98.5 [degF] Dr. Asif Ford Work Phone: [facility] Work Phone: 05-13-2022 05:09-0500 Diastolic blood pressure 71 mm[Hg] Dr. Asif Ford Work Phone: [facility] Work Phone: 05-13-2022 05:09-0500 Heart rate 99 /min Dr. Asif Ford Work Phone: [facility] Work Phone: 05-13-2022 05:09-0500 Respiratory rate 20 /min Dr. Asif Ford Work Phone: [facility] Work Phone: 05-13-2022 05:09-0500 SaO2% (BldA) [Mass fraction] 96 % Dr. Asif Ford Work Phone: [facility] Work Phone: 05-13-2022 05:09-0500 Systolic blood pressure 99 mm[Hg] Dr. Asif Ford Work Phone: [facility] Work Phone: 05-12-2022 23:02-0500 Body height 182.[address] Asif Ford Work Phone: [facility] Work Phone: 05-12-2022 23:02-0500 Body mass index (BMI) [Ratio] 25.4 kg/m2 Dr. Asif Ford Work Phone: [facility] Work Phone: 05-12-2022 23:02-0500 Body weight 85.[address] Asif Ford Work Phone: [facility] Work Phone: 02-19-2022 08:08-0400 Body weight 83.92 kg Shan Christianson MD Work Phone: [facility] 02-19-2022 08:08-0400 Diastolic blood pressure 76 mm[Hg] Shan Christianson MD Work Phone: [facility] 02-19-2022 08:08-0400 Heart rate 80 /min Shan Christianson MD Work Phone: [facility] 02-19-2022 08:08-0400 Respiratory rate 16 /min Shan Christianson MD Work Phone: [facility] 02-19-2022 08:08-0400 SaO2% (BldA) [Mass fraction] 97 % Shan Christianson MD Work Phone: [facility] 02-19-2022 08:08-0400 Systolic blood pressure 106 mm[Hg] Shan Christianson MD Work Phone: [facility] 02-13-2022 09:21-0400 Heart rate 70 /min No Primary Care Physician [facility] 02-13-2022 08:30-0400 Body temperature 98 [degF] No Primary Care Physician [facility] 02-13-2022 08:30-0400 Diastolic blood pressure 77 mm[Hg] No Primary Care Physician [facility] 02-13-2022 08:30-0400 Respiratory rate 18 /min No Primary Care Physician [facility] 02-13-2022 08:30-0400 SaO2% (BldA) [Mass fraction] 96 % No Primary Care Physician [facility] 02-13-2022 08:30-0400 Systolic blood pressure 112 mm[Hg] No Primary Care Physician [facility] 02-09-2022 14:44-0400 Body height 182.88 cm No Primary Care Physician [facility] Work Phone: 02-09-2022 14:44-0400 Body mass index (BMI) [Ratio] 26.9 kg/m2 No Primary Care Physician [facility] 02-09-2022 14:44-0400 Body weight 90 kg No Primary Care Physician [facility] 02-09-2022 14:10-0400 Body temperature 98.3 [degF] No Primary Care Physician [facility] Work Phone: 02-09-2022 14:10-0400 Diastolic blood pressure 72 mm[Hg] No Primary Care Physician [facility] Work Phone: 02-09-2022 14:10-0400 Heart rate 80 /min No Primary Care Physician [facility] Work Phone: 02-09-2022 14:10-0400 Respiratory rate 16 /min No Primary Care Physician [facility] Work Phone: 02-09-2022 14:10-0400 SaO2% (BldA) [Mass fraction] 97 % No Primary Care Physician [facility] Work Phone: 02-09-2022 14:10-0400 Systolic blood pressure 105 mm[Hg] No Primary Care Physician [facility] Work Phone: 02-09-2022 10:39-0400 Body height 182.88 cm No Primary Care Physician [facility] Work Phone: 02-09-2022 10:39-0400 Body mass index (BMI) [Ratio] 26.2 kg/m2 No Primary Care Physician [facility] Work Phone: 02-09-2022 10:39-0400 Body weight 87.54 kg No Primary Care Physician [facility] Work Phone: 02-08-2022 16:48-0400 Diastolic blood pressure 65 mm[Hg] No Primary Care Physician [facility] Work Phone: 02-08-2022 16:48-0400 Systolic blood pressure 86 mm[Hg] No Primary Care Physician [facility] Work Phone: 02-08-2022 15:19-0400 Heart rate 100 /min No Primary Care Physician [facility] Work Phone: 02-08-2022 15:19-0400 Respiratory rate 26 /min No Primary Care Physician [facility] Work Phone: 02-08-2022 15:19-0400 SaO2% (BldA) [Mass fraction] 92 % No Primary Care Physician [facility] Work Phone: 02-08-2022 14:40-0400 Body temperature 100.9 [degF] No Primary Care Physician [facility] Work Phone: 02-08-2022 13:08-0400 Body height 182.88 cm No Primary Care Physician [facility] Work Phone: 02-08-2022 13:08-0400 Body mass index (BMI) [Ratio] 26.2 kg/m2 No Primary Care Physician [facility] Work Phone: 02-08-2022 13:08-0400 Body weight 87.6 kg No Primary Care Physician [facility] Work Phone: 02-08-2022 12:31-0400 Body temperature 101.7 [degF] Mayuri Collins PA-C Work Phone: [facility] 02-08-2022 12:31-0400 Body weight 87.54 kg Mayuri Collins PA-C Work Phone: [facility] 02-08-2022 12:31-0400 Diastolic blood pressure 58 mm[Hg] Mayuri Collins PA-C Work Phone: [facility] 02-08-2022 12:31-0400 Heart rate 100 /min Mayuri Collins PA-C Work Phone: [facility] 02-08-2022 12:31-0400 Respiratory rate 18 /min Mayuri Collins PA-C Work Phone: [facility] 02-08-2022 12:31-0400 Systolic blood pressure 100 mm[Hg] Mayuri Collins PA-C Work Phone: [facility] 01-16-2022 15:07-0400 Body weight 87.54 kg Shan Christianson MD Work Phone: [facility] 01-16-2022 15:07-0400 Diastolic blood pressure 80 mm[Hg] Shan Christianson MD Work Phone: [facility] 01-16-2022 15:07-0400 Heart rate 76 /min Shan Christianson MD Work Phone: [facility] 01-16-2022 15:07-0400 Respiratory rate 14 /min Shan Christianson MD Work Phone: [facility] 01-16-2022 15:07-0400 Systolic blood pressure 118 mm[Hg] Shan Christianson MD Work Phone: [facility] 01-01-2022 09:04-0400 Body height 183 cm Mayuri Collins PA-C Work Phone: [facility] 01-01-2022 09:04-0400 Body temperature 97.2 [degF] Mayuri Collins PA-C Work Phone: [facility] 01-01-2022 09:04-0400 Body weight 86.64 kg Mayuri Collins PA-C Work Phone: [facility] 01-01-2022 09:04-0400 Diastolic blood pressure 78 mm[Hg] Mayuri Collins PA-C Work Phone: [facility] 01-01-2022 09:04-0400 Heart rate 76 /min Mayuri Collins PA-C Work Phone: [facility] 01-01-2022 09:04-0400 Respiratory rate 16 /min Mayuri Collins PA-C Work Phone: [facility] 01-01-2022 09:04-0400 Systolic blood pressure 102 mm[Hg] Mayuri Collins PA-C Work Phone: [facility] 12-26-2021 16:03-0400 Body mass index (BMI) [Ratio] 25.7 kg/m2 No Primary Care Physician [facility] Work Phone: 12-26-2021 16:03-0400 Body weight 85.95 kg No Primary Care Physician [facility] Work Phone: 12-26-2021 16:03-0400 Diastolic blood pressure 70 mm[Hg] No Primary Care Physician [facility] Work Phone: 12-26-2021 16:03-0400 Heart rate 72 /min No Primary Care Physician [facility] Work Phone: 12-26-2021 16:03-0400 Respiratory rate 16 /min No Primary Care Physician [facility] Work Phone: 12-26-2021 16:03-0400 Systolic blood pressure 104 mm[Hg] No Primary Care Physician [facility] Work Phone: 01-08-2017 16:12-0400 Heart rate 65 /min [facility] Work Phone: 01-08-2017 16:02-0400 BMI (Body Mass Index) 26.31 kg/m2 [facility] Work Phone: 01-08-2017 16:02-0400 BP Diastolic 60 mm[Hg] [facility] Work Phone: 01-08-2017 16:02-0400 BP Systolic 90 mm[Hg] [facility] Work Phone: 01-08-2017 16:02-0400 Height 182.88 cm [facility] Work Phone: 01-08-2017 16:02-0400 Pulse (Heart Rate) 64 /min [facility] Work Phone: 01-08-2017 16:02-0400 Respiratory Rate 20 /min [facility] Work Phone: 01-08-2017 16:02-0400 Weight 88 kg [facility] Work Phone: 06-03-2016 12:36-0500 BMI (Body Mass Index) 27.12 kg/m2 [facility] Work Phone: 06-03-2016 12:36-0500 Body Temperature 98.3 [degF] [facility] Work Phone: 06-03-2016 12:36-0500 BP Diastolic 66 mm[Hg] [facility] Work Phone: 06-03-2016 12:36-0500 BP Systolic 122 mm[Hg] [facility] Work Phone: 06-03-2016 12:36-0500 BSA (Body Surface Area) 2.13 m2 [facility] Work Phone: 06-03-2016 12:36-0500 Pulse (Heart Rate) 78 /min [facility] Work Phone: 06-03-2016 12:36-0500 Respiratory Rate 16 /min [facility] Work Phone: 06-03-2016 12:36-0500 Weight 90.72 kg [facility] Work Phone: 04-23-2013 15:33-0500 Heart rate 386 ms [facility] Work Phone: 04-18-2011 10:04-0500 Height 182.88 cm Abdullahi [facility] Work Phone: Encounters Encounter Date Encounter Type Care Provider Facility Start: 06-12-2024 ambulatory Rickey Quintanilla lity:[facility] Start: 05-14-2024 End: 05-14-2024 Telephone encounter Karthik Wylie APRN.[employer]ER Work Phone: [facility] Comment on above: Results Start: 05-14-2024 End: 05-14-2024 Subsequent hospital visit by physician Xr [facility] Work Phone: Radiology Comment on above: Productive cough [R0 5.8] Start: 05-14-2024 End: 05-14-2024 Patient encounter procedure Karthik Wylie APRN.[employer]OO[employer] PLATE MAKER Work Phone: [facility] Comment on above: Productive cough (Pr imary Dx); Bacterial pneumonia Start: 05-14-2024 End: 05-14-2024 ambulatory KARTHIK WYLIE Facility:[place] Start: 05-13-2024 End: 05-13-2024 Telephone encounter Shan Christianson MD Work Phone: [facility] Comment on above: Patient Update Start: 04-27-2024 End: 04-27-2024 Subsequent hospital visit by physician Gerhard [facility] Work Phone: Radiology Comment on above: Bacterial pneumonia [J15.9] Start: 04-27-2024 End: 04-27-2024 Patient encounter procedure Shan Christianson MD Work Phone: [facility] Comment on above: Bacterial pneumonia (Primary Dx); Scattered respiratory crackles of right lung Start: 04-27-2024 End: 04-27-2024 Telephone encounter Shan Christianson MD Work Phone: [facility] Comment on above: Results Start: 04-27-2024 End: 04-27-2024 ambulatory SHAN CHRISTIANSON Facility:[place] Start: 04-21-2024 End: 04-21-2024 ambulatory Shan Christianson Facility:[facility] Start: 04-14-2024 End: 04-14-2024 Patient encounter procedure [facility] Work Phone: [facility] [place] Start: 04-14-2024 End: 04-14-2024 ambulatory [facility] Nurse [facility] Work Phone: [facility] [place] Start: 03-18-2024 End: 03-18-2024 Chart abstracting Shan Christianson MD Work Phone: [facility] [place] Start: 03-18-2024 End: 03-18-2024 ambulatory Rickey Jama Facility:[facility] Start: 02-09-2024 End: 02-09-2024 Chart abstracting Shan Christianson MD Work Phone: [facility] Comment on above: Outside PT Start: 02-09-2024 End: 02-09-2024 ambulatory Shan Corbiney Facility:[facility] Start: 01-22-2024 End: 01-22-2024 Chart abstracting Shan Christianson MD Work Phone: [facility] Comment on above: Outside Cardiology Start: 01-22-2024 End: 01-22-2024 ambulatory Shan Corbiney Facility:[facility] Start: 01-21-2024 ambulatory Johnny Cantu Facility :[facility] Start: 01-21-2024 End: 01-21-[address] [facility] Facility:[facility] Start: 01-13-2024 End: 01-15-2024 ambulatory Jaja Boothe RN Work Phone: [employer] Comment on above: ACJuan COSBY RN ( ER f/u) Start: 01-13-2024 End: 01-13-2024 Chart abstracting Ming Posada MA [facility] Comment on above: ER F/U ([facility] - ER ) Start: 01-08-2024 End: 01-08-2024 Emergency department patient visit Damion Cuellar Facility:[facility] Start: 01-05-2024 End: 01-05-2024 Patient encounter procedure Karthik Wylie APRN.CNP Work Phone: [facility] [place] Comment on above: Non-STEMI (non-ST el evated myocardial infarction) (HCC) (Primary Dx); Benign prostatic hyperplasia with urinary retention; Paroxysmal atrial fibrillation (HCC); Mixed hyperlipidemia; S/P drug eluting coronary stent placement; Prostate cancer (HCC); Abdominal wall pain; Acquired abdominal wall defect Start: 01-05-2024 End: 01-05-2024 ambulatory MAYURI COLLINS Facility:[place] Start: 01-05-2024 ambulatory Shan Christianson Facility :[facility] Start: 01-05-2024 End: 01-05-2024 [facility] Facility:[facility] Start: 01-01-2024 End: 01-01-2024 Chart abstracting Shan Christianson MD Work Phone: [facility] Comment on above: Outside [id number] Ordered Start: 01-01-2024 End: 01-01-2024 ambulatory Shan Christianson Facility:[facility] Start: 01-01-2024 End: 01-01-2024 ambulatory Shan Christianson Facility:[facility] Start: 12-31-2023 End: 12-31-2023 [facility] Facility:[facility] Start: 12-24-2023 Chart abstracting Shan pat MD Work Phone: [facility] Comment on above: Outside PT Start: 11-04-2023 ambulatory Cat Vera [facility] [place] Start: 11-04-2023 Patient encounter procedure Cat Vera MA [facility] [place] Comment on above: Population Health Na vigation Outreach ([place] Med [facility]) Start: 10-29-2023 End: 10-29-2023 ambulatory SHAN CHRISTIANSON Facility:[place] Start: 10-29-2023 End: 10-29-2023 Patient encounter procedure Shan Christianson MD Work Phone: [facility] Comment on above: Family history of co jamil cancer in mother (Primary Dx); Hematochezia; External hemorrhoid Start: 10-22-2023 ambulatory Corrine Faria [facility] [place] Start: 10-22-2023 Patient encounter procedure Corrine Faria [facility] [place] Comment on above: Population Health Na vigation Outreach ([place] AWV/HCC and care gaps ) Start: 10-21-2023 ambulatory Johnny [place] Facility :[facility] Start: 10-08-2023 Refill Mayuri Poole on PA-C Work Phone: [facility] Comment on above: Refill Request Start: 09-23-2023 Chart abstracting Shan pat MD Work Phone: [facility] Comment on above: Ext / Urology Start: 09-19-2023 Chart abstracting Shan pat MD Work Phone: [facility] Comment on above: Ext labs Start: 09-18-2023 End: 09-18-2023 ambulatory Ayana Salomon Facility:[facility] Start: 09-12-2023 End: 10-10-[address] [facility] Facility:[facility] Start: 09-05-2023 Telephone encounter Mayuri JAYC Work Phone: [facility] Comment on above: Results Start: 09-05-2023 End: 09-09-[address] Shan Christianson Work Phone: [facility] Work Phone: Start: 09-05-2023 End: 09-09-[address] Shan Christianson Work Phone: [facility]Card[facility] Work Phone: Start: 2023 End: 2023 Subsequent hospital visit by physician Xr [facility] Work Phone: Radiology Comment on above: Acute pain of right knee [M25.561] Start: 2023 End: 2023 ambulatory MAYURI COLLINS Facility:[place] Start: 2023 End: 2023 Patient encounter procedure Mayuri JAYC Work Phone: [facility] Comment on above: Acute pain of right knee (Primary Dx) Start: 08-08-2023 End: 08-10-[address] Shan Christianson Work Phone: [facility] Work Phone: Start: 08-08-2023 End: 08-10-[address] Shan Christianson Work Phone: [facility] Work Phone: Start: 07-29-2023 Chart abstracting Shan pat MD Work Phone: [facility] Comment on above: Outside Cardiology Start: 07-25-2023 Chart abstracting Shan pat MD Work Phone: [facility] Comment on above: Outside [id number] Ordered Start: 07-25-[address] Haleigh Christianson Work Phone: [facility] Work Phone: Start: 07-25-2023 End: 07-25-[address] Shan Christianson Work Phone: [facility] [facility] Work Phone: Start: 07-25-2023 End: 07-25-2023 ambulatory Shan Christianson Facility:[facility] Start: 07-23-2023 End: 07-23-[address] Shan Christianson Work Phone: [facility] Work Phone: Start: 07-23-2023 End: 07-23-[address] Shan Christianson Work Phone: [facility]Labor[facility] Work Phone: Start: 07-23-2023 End: 07-23-2023 ambulatory Markus Mayorga NP Facility:[facility] Start: 07-09-2023 End: 07-10-[address] Shan Christianson Work Phone: [facility] Work Phone: Start: 07-09-2023 End: 07-10-[address] Shan Christianson Work Phone: [facility] Work Phone: Start: 06-27-[address] Haleigh Christianson Work Phone: [facility] Work Phone: Start: 06-23-2023 End: 06-23-[address] Shan Christianson Work Phone: [facility] Work Phone: Start: 06-23-2023 End: 06-23-[address] Shan Christianson Work Phone: [facility] Work Phone: Start: 06-09-2023 Non-patient / Non-visit Dr. Imer Christianson Work Phone: [facility] Start: 04-22-2023 Chart abstracting Shan pat MD Work Phone: [facility] Comment on above: Outside Cardiology Start: 04-22-2023 End: 04-22-[address] Shan Christianson Work Phone: [facility] Work Phone: Start: 04-14-2023 End: 04-14-2023 Patient encounter procedure Alivia Frank APRN.CNP Work Phone: [facility] Comment on above: Hospital discharge f ollow-up (Primary Dx); Non-STEMI (non-ST elevated myocardial infarction) (HCC); S/P drug eluting coronary stent placement Start: 03-31-2023 Chart abstracting Shan pat MD Work Phone: [facility] Comment on above: ext document (Urolog y ) Start: 03-27-2023 Chart abstracting Shan pat MD Work Phone: [facility] Comment on above: Outside Cardiology Start: 03-27-2023 Non-patient / Non-visit Dr. Imer Christianson Work Phone: [facility] Start: 03-27-2023 Non-patient / Non-visit Dr. Imer Christianson Work Phone: [facility] Work Phone: Start: 03-26-2023 Non-patient / Non-visit Dr. Imer Christianson Work Phone: [facility] Work Phone: Start: 03-25-2023 End: 03-27-2023 Evaluation and management of inpatient Dr. Shan Christianson Work Phone: [facility] Work Phone: Start: 03-25-2023 Chart abstracting Shan pat MD Work Phone: [facility] Comment on above: Outside Echo Start: 03-25-2023 Non-patient / Non-visit Dr. Imer Christianson Work Phone: [facility] Start: 03-25-2023 Non-patient / Non-visit Dr. Imer Christianson Work Phone: [facility] Work Phone: Start: 03-25-2023 Evaluation and management of inpatient Dr. Shan [facility] Work [facility]: Start: 03-25-[address] Edward Christianson Work Phone: [facility] Work Phone: Start: 03-22-2023 End: 03-22-[address] Shan Christianson Work Phone: [facility] Work Phone: Start: 03-05-2023 Chart abstracting Shan pat MD Work Phone: [facility] Comment on above: Outside Cardiology Start: 03-04-2023 End: 03-04-[address] Shan Christianson Work Phone: [facility] Work Phone: Start: 01-02-2023 ambulatory Mayuri parisi PA-C Work Phone: [facility] [place] Comment on above: acid reflux Start: 01-02-2023 E-mail encounter fro m caregiver Mayuri Collins PA-C Work Phone: [facility] Start: 01-02-2023 Telephone encounter Shan Christianson MD Work Phone: [facility] Comment on above: Forms Start: 01-02-2023 End: 01-02-2023 Patient encounter procedure Mayuri Collins PA-C Work Phone: [facility] Comment on above: Well adult exam (Purnima tomas Dx); Mixed hyperlipidemia; Paroxysmal atrial fibrillation (HCC); Benign prostatic hyperplasia with urinary frequency; Benign prostatic hyperplasia with urinary retention; Abdominal wall pain; Acquired abdominal wall defect; Prostate cancer (HCC) Start: 01-02-2023 End: 01-02-2023 Patient encounter status Mayuri Collins PA-C Work Phone: [facility] Work Phone: Start: 09-27-2022 End: 09-27-2022 ambulatory [facility] Work Phone: Start: 09-27-2022 End: 09-27-2022 Patient encounter procedure [facility] Start: 06-10-2022 End: 06-10-[address] Asif [place] Work Phone: [facility]-Radiology, [facility] Start: 06-06-2022 Telephone encounter Mayuri rodriguez PA-C Work Phone: [facility] [place] Comment on above: Results Start: 06-04-2022 End: 06-04-2022 ambulatory [facility] Work Phone: [facility] Comment on above: Spirometry Start: 06-04-2022 End: 06-04-2022 Patient encounter procedure [facility] Work Phone: [facility] Start: 05-31-2022 End: 05-31-2022 Patient encounter procedure Shan Christianson MD Work Phone: [facility] Comment on above: Persistent cough (Pr imary Dx); Chronic cough Start: 05-30-2022 End: 05-30-[address] Asif Ford Work Phone: [facility] Work Phone: Start: 05-30-2022 End: 05-30-[address] Asif Ford Work Phone: [facility]Laboratory Start: 05-24-2022 Telephone encounter Shan Christianson MD Work Phone: [facility] Comment on above: Patient Question Start: 05-22-2022 Telephone encounter Mayuri rodriguez PA-C Work Phone: [facility] Comment on above: Results Start: 05-21-2022 End: 05-21-2022 Patient encounter procedure Mayuri Collins PA-C Work Phone: [facility] Comment on above: Acute cystitis witho ut hematuria (Primary Dx); Hypokalemia; Benign prostatic hyperplasia with urinary retention; Paroxysmal atrial fibrillation (HCC) Start: 05-16-2022 Non-patient / Non-visit Dr. Martell Work Phone: [facility] Start: 05-15-2022 Non-patient / Non-visit Dr. Martell Work Phone: [facility] Start: 05-14-2022 Non-patient / Non-visit Dr. Martell Work Phone: [facility] Start: 05-13-2022 Non-patient / Non-visit Dr. Martell Work Phone: [facility] Start: 05-13-2022 End: 05-16-2022 Evaluation and management of inpatient Dr. Asif Ford Work Phone: [facility] Surgical 2 Start: 03-20-2022 ambulatory Shan bardales MD Work Phone: Ambulatory Surgery Start: 03-10-2022 Telephone encounter Shan Christianson MD Work Phone: [facility] Comment on above: Results Start: 02-20-2022 Telephone encounter Shan Christianson MD Work Phone: [facility] Comment on above: Results Start: 02-19-2022 End: 02-19-2022 Patient encounter procedure Shan Christianson MD Work Phone: [facility] Comment on above: Acute cystitis with hematuria (Primary Dx); GO (acute kidney injury) (HCC); Paroxysmal atrial fibrillation (HCC); Medication management; Encounter for immunization Start: 02-14-2022 Telephone encounter Shan Christianson MD Work Phone: [facility] Comment on above: Hospital F/U Start: 02-13-2022 Non-patient / Non-visit No Purnima tomas Care Physician [facility] Start: 02-12-2022 Non-patient / Non-visit No Purnima tomas Care Physician [facility] Start: 02-11-2022 End: 02-13-2022 Evaluation and management of inpatient [facility] Start: 02-11-2022 Non-patient / Non-visit No Purnima tomas Care Physician [facility] Start: 02-10-2022 Non-patient / Non-visit No Purnima tomas Care Physician [facility] Start: 02-10-2022 ambulatory James Rogers RN NURSE [employer] Comment on above: Information Start: 02-09-2022 End: 02-13-2022 Non-patient / Non-visit No Primary Care Physician [facility] Start: 02-09-2022 Evaluation and management of inpatient No Primary Care Physician [facility] Surgical 3 Start: 02-09-2022 observation encounter No Prima ry Care Physician [facility] Work Phone: Start: 02-08-2022 ambulatory [facility] Comment on above: urinary symptoms Start: 02-08-2022 End: 02-08-2022 Emergency department patient visit No Primary Care Physician [facility]Emergency Department Start: 02-08-2022 End: 02-08-2022 Patient encounter procedure Mayuri oCllins PA-C [facility] Comment on above: Gross hematuria (Purnima tomas Dx); Flu-like symptoms Start: 01-29-2022 Chart abstracting Shan pat MD Work Phone: [facility] Comment on above: gi consult Start: 01-16-2022 End: 01-16-2022 Patient encounter procedure Shan Christianson MD Work Phone: [facility] Comment on above: Mixed hyperlipidemia (Primary Dx); Anxiety; Paroxysmal atrial fibrillation (HCC); Acquired abdominal wall defect; Encounter for immunization; Medication management; Encounter for screening for diabetes mellitus; Need for vaccination Start: 01-16-2022 Patient encounter status Haleigh Christianson MD Work Phone: [facility] Work Phone: Start: 01-01-2022 Telephone encounter Mayuri rodriguez PA-C [facility] Comment on above: Forms (Disability/) Start: 01-01-2022 End: 01-01-2022 Patient encounter procedure Mayuri Collins PA-C [facility] Comment on above: Well adult exam (Purnima tomas Dx); Hyperlipidemia, unspecified hyperlipidemia type; Paroxysmal atrial fibrillation (HCC); Acquired abdominal wall defect; Benign prostatic hyperplasia with urinary frequency; Abdominal wall pain; Screening for colon cancer Start: 01-01-2022 End: 01-01-2022 Patient encounter status Mayuri Collins PA-C Work Phone: [facility] Work Phone: Start: 12-26-2021 End: 12-26-2021 Patient encounter procedure No Primary Care Physician [facility] Procedures Date Procedure Procedure Detail Performing Clinician Start: 05-14-2024 Radiologic exam chest 2 views Karthik Wylie LABORER [employer]OR[employer]ATE [employer] Work Phone: Start: 04-27-2024 Radiologic exam chest 2 views Shan Christianson MD Work Phone: Start: 2023 Radiologic exam knee complete 4/more views Mayuri Collins PA-C Work Phone: Start: 04-14-2023 INFLUENZA VACCINE, AGE 6 MO - 64 YR, QUADRIVALENT (AFLURIA, FLULAVAL, FLUZONE) Alivia Frank [employer] Work Phone: Start: 03-25-2023 CT angiography of chest with contrast Dr. Shan Christianson Work Phone: Start: 03-24-2023 Plain chest X-ray Dr. Shan Christianson Work Phone: Start: 01-01-2023 Lipid 1996 panel - Serum or Plasma Shan Christianson MD Work Phone: Start: 06-10-2022 Diagnostic radiography of upper gastrointestinal tract with serial films Dr. Asif Ford Work Phone: Start: 06-04-2022 Brncdilat rspse spmtry pre&post-brncdilat admn Shan Christianson MD Work Phone: Start: 05-15-2022 Cysto,TUR,Prostate,Olymp[facility] (Not Applicable) Dr. Asif Ford Work Phone: Start: 05-12-2022 Plain chest X-ray Dr. Asif Ford Work Phone: Start: 02-19-2022 [employer] COVID-19 BIVALENT BOOSTER VACCINE, AGE 12+ YR Shan Christianson MD Work Phone: Start: 02-12-2022 Plain chest X-ray No Primary Care Physician Start: 02-12-2022 US urinary tract No Primary Care Physician Start: 02-09-2022 CT of abdomen and pelvis without contrast No Primary Care Physician Start: 02-08-2022 Plain chest X-ray No Primary Care Physician Start: 01-16-2022 INFLUENZA VACCINE QUADRIVALENT 6 MO - 64 YRS IM Shan Christianson MD Work Phone: Start: 01-01-2022 Adult depression screening assessment Mayuri Collins PA-C Work Phone: Start: 01-08-2017 End: 01-08-2017 Electrocardiogram, complete Hussein bartlett MD Start: 01-08-2017 End: 01-08-2017 Follow Up Appt 6 months Hussein Meyer MD Start: 01-08-2017 End: 01-08-2017 MMM Hussein Meyer MD Start: 06-03-2016 End: 06-03-2016 Dietary management education, guidance, and counseling Abdullahi Brennan Start: 04-18-2016 End: 04-23-2016 *BMP Yeni Cha PA-C Work Phone: Start: 04-18-2016 End: 04-23-2016 *Hepatic Function Panel Yeni marie PA-C Work Phone: Start: 04-18-2016 End: 04-23-2016 CBC W Auto Differential panel - Blood Yeni Cha PA-C Work Phone: Start: 04-18-2016 End: 04-18-2016 Electrocardiogram, complete Yeni Mcintyre PA-C Work Phone: Start: 04-18-2016 End: 04-18-2016 Follow Up Appt 6 months Yeni marie PA-C Work Phone: Start: 04-18-2016 End: 04-23-2016 Lipid panel [AGGREGATE] Yeni marie PA-C Work Phone: Start: 04-18-2016 End: 04-23-2016 Magnesium Yeni Cha PA-C Work Phone: Start: 04-18-2016 End: 04-18-2016 PFM Yeni Cha PA-C Work Phone: Start: 04-18-2016 End: 04-23-2016 Thyroid stimulating hormone (TSH) Yeni Cha PA-C Work Phone: Start: 04-18-2016 End: 04-23-2016 Thyroxine (T4) Yeni Cha PA-C Work Phone: Start: 10-16-2015 End: 10-16-2015 Follow Up Appt 6 months Hussein Meyer MD Start: 10-16-2015 End: 10-16-2015 CHRIS Meyer MD Start: 06-15-2015 End: 09-25-2015 *Hepatic Function Panel Yeni marie PA-C Work Phone: Start: 06-15-2015 End: 09-25-2015 Lipid panel [AGGREGATE] Yeni marie PA-C Work Phone: Start: 03-28-2015 End: 03-28-2015 Follow Up Appt 6 months Yeni marie PA-C Work Phone: Start: 03-28-2015 End: 03-28-2015 PFM Yeni Cha PA-C Work Phone: Start: 12-14-2014 End: 03-03-2015 Electrocardiogram, complete Hussein bartlett MD Start: 12-14-2014 End: 03-03-2015 Follow Up Appt 3 months Hussein Meyer MD Start: 12-14-2014 End: 03-03-2015 CHRIS Meyer MD Start: 11-08-2014 End: 12-13-2014 *Hepatic Function Panel Yeni marie PA-C Work Phone: Start: 11-08-2014 End: 12-13-2014 Lipid panel [AGGREGATE] Yeni marie PA-C Work Phone: Start: 06-22-2014 End: 06-23-2014 Documentation of current medications Yeni Cha PA-C Work Phone: Start: 06-22-2014 End: 06-22-2014 Follow Up Appt Other Yeni martino PA-C Work Phone: Start: 06-22-2014 End: 06-22-2014 PFM Yeni Cha PA-C Work Phone: Start: 04-20-2014 End: 04-22-2014 *CBC with Differential Yeni miller PA-C Work Phone: Start: 04-20-2014 End: 04-22-2014 *Hepatic Function Panel Yeni marie PA-C Work Phone: Start: 04-20-2014 End: 06-22-2014 Echocardiography Yeni Cha PA-C Work Phone: Start: 04-20-2014 End: 04-22-2014 Electrocardiogram, complete Yeni Mcintyre PA-C Work Phone: Start: 04-20-2014 End: 04-22-2014 Follow Up Appt 2 months Yeni marie PA-C Work Phone: Start: 04-20-2014 End: 04-22-2014 Follow Up Appt 6 months Yeni marie PA-C Work Phone: Start: 04-20-2014 End: 04-22-2014 Lipid panel [AGGREGATE] Yeni marie PA-C Work Phone: Start: 04-20-2014 End: 04-22-2014 Magnesium [Mass/volume] in Serum or Plasma Yeni Cha PA-C Work Phone: Start: 04-20-2014 End: 04-22-2014 MMM Yeni hCa PA-C Work Phone: Start: 04-20-2014 End: 06-22-2014 Nuclear stress test -exercise Yeni Cha PA-C Work Phone: Start: 04-20-2014 End: 04-22-2014 PFM Yeni Cha PA-C Work Phone: Start: 04-20-2014 End: 04-22-2014 Thyroid stimulating hormone (TSH) Yeni Cha PA-C Work Phone: Start: 04-20-2014 End: 04-22-2014 Thyroxine (T4) Yeni Cha PA-C Work Phone: Start: 11-03-2013 End: 11-04-2013 Follow Up Appt 6 months Hussein eMyer MD Start: 11-03-2013 End: 06-22-2014 Follow Up Appt Other Hussein Meyer MD Start: 11-03-2013 End: 11-04-2013 Lipid panel [AGGREGATE] Hussein Meyer MD Start: 11-03-2013 End: 11-04-2013 MMM Hussein Meyer MD Start: 06-12-2013 End: 06-22-2014 *Hepatic Function Panel Hussein Meyer MD Start: 06-12-2013 End: 06-22-2014 Lipid panel [AGGREGATE] Hussein Meyer MD Start: 04-23-2013 End: 06-22-2014 Electrocardiogram, complete Hussein bartlett MD Start: 04-23-2013 End: 06-22-2014 Follow Up Appt 6 months Hussein Meyer MD Start: 04-23-2013 End: 06-22-2014 PFM Hussein Meyer MD Start: 01-06-2013 End: 06-22-2014 Lipid panel [AGGREGATE] Javier Vázquez MD Start: 01-05-2013 End: 01-05-2013 *Hepatic Function Panel Javier Vázquez MD Start: 07-02-2012 End: 07-02-2012 Electrocardiogram, colby Vázquez MD Start: 07-02-2012 End: 06-22-2014 Follow Up Appt 6 months Javier Vázquez MD Start: 06-17-2012 End: 07-02-2012 *BMP Javier Vázquez MD Start: 06-17-2012 End: 07-02-2012 *Hepatic Function Panel Javier Vázquez MD Start: 06-17-2012 End: 07-02-2012 Lipid panel [AGGREGATE] Javier Vázquez MD Start: 06-17-2012 End: 07-02-2012 Magnesium Javier Vázquez MD Start: 12-23-2011 End: 12-23-2011 Follow Up Appt 6 months Javier Vázquez MD Start: 10-16-2011 End: 12-21-2011 *Hepatic Function Panel Javier Vázquez MD Start: 10-16-2011 End: 12-21-2011 Lipid 1996 panel - Serum or Plasma Javier Vázquez MD Start: 10-16-2011 End: 12-21-2011 Magnesium Javier Vázquez MD Start: 04-18-2011 End: 10-15-2011 Electrocardiogram, colby Vázquez MD Start: 04-18-2011 End: 04-18-2011 Follow Up Appt 6 months Javier Vázquez MD Start: 07-10-2010 Colonoscopy Mayuri Sosa Work Phone: Bacteria Detection (PCR) No Primary Care Physician Bacteria identified in Blood by Culture No Primary Care Physician Bacteria identified in Blood by Culture Dr. Asif Ford Work Phone: Clostridium difficil e detection No Primary Care Physician Clostridium difficil e detection Dr. Asif Ford Work Phone: History of placement of stent for coronary artery disease S/P drug eluting coronary stent placement Alivia Frank [employer] Work Phone: History of placement of stent for coronary artery disease S/P drug eluting coronary stent placement Karthik Wylie [employer]ER [employer]KER Work Phone: SARS-CoV-2 & FLU Ant igen (Rapid) Dr. Asif Ford Work Phone: SARS-CoV-2 & FLU Ant igen (Rapid) Dr. Asif Ford Work Phone: Urine culture No Primary Car e Physician Urine culture Dr. Asif baez Work Phone: Urine culture Dr. Asif baez Work Phone: Plan of Treatment Date Care Activity Detail Author Start: 09-02-2035 RSV Vaccine (1 - 1-dose 75+ series) RSV Vaccine (1 - 1-dose 75+ series) [facility] Start: 01-02-2028 Lipid 1996 panel - Serum or Plasma Lipid Screening [facility] Start: 01-02-2028 Lipid panel Lipid Screening [facility] Start: 01-02-2028 LIPID SCREEN LIPID SCREEN [facility] Start: 09-28-2027 PROSTATE CANCER SCREENING DISCUSSION PROSTATE CANCER SCREENING DISCUSSION [facility] Start: 09-28-2027 Prostate specific antigen measurement Prostate Cancer Screening Discussion [facility] Start: 12-26-2026 LIPID SCREEN LIPID SCREEN [facility] Start: 02-05-2026 PROSTATE CANCER SCREENING DISCUSSION PROSTATE CANCER SCREENING DISCUSSION [facility] Start: 01-01-2026 DIABETES SCREEN DIABETES SCREEN [facility] Start: 01-01-2026 Diabetes Screening Diabetes Screening [facility] Start: 10-03-2025 Urine microalbumin profile [facility] Start: 05-21-2025 DIABETES SCREEN DIABETES SCREEN [facility] Start: 05-14-2025 Annual PCP Team Chronic Disease Visit Annual PCP Team Chronic Disease Visit [facility] Start: 04-27-2025 Annual PCP Team Chronic Disease Visit Annual PCP Team Chronic Disease Visit [facility] Start: 03-06-2025 DIABETES SCREEN DIABETES SCREEN [facility] Start: 02-19-2025 DIABETES SCREEN DIABETES SCREEN [facility] Start: 01-11-2025 COLOGUARD (FIT-DNA) COLOGUARD (FIT-DNA) [facility] Start: 01-11-2025 Screening for malignant neoplasm of colon Cologuard (FIT-DNA) [facility] Start: 01-05-2025 End: 01-05-2025 Patient encounter procedure 01/05/2025 9:40 AM EDT Office Visit [facility] [address] [place], [place] [phone] Shan Christianson MD [address] [place], [place] [phone] Physical [facility] Comment on above: Physical Start: 01-04-2025 Annual PCP Team Chronic Disease Visit Annual PCP Team Chronic Disease Visit [facility] Start: 12-26-2024 DIABETES SCREEN DIABETES SCREEN [facility] Start: 10-28-2024 Annual PCP Team Chronic Disease Visit Annual PCP Team Chronic Disease Visit [facility] Start: 08-31-2024 Annual PCP Team Chronic Disease Visit Annual PCP Team Chronic Disease Visit [facility] Start: 05-14-2024 End: 05-14-2024 Patient encounter procedure 05/14/2024 10:00 AM EST Office Visit [facility] [address] [place], [place] [id number] Karthik Wylie APRN.[employer]OO[employer] PLATE MAKER [address] [place], [place] [phone] Follow-up Pneumonia. See TE 05/13/2023. [facility] Comment on above: Follow-up Pneumonia. See TE 05/13/2023. Start: 04-14-2024 Annual PCP Team Chronic Disease Visit Annual PCP Team Chronic Disease Visit [facility] Start: 01-11-2024 Covid-19 Vaccine (5 - 2023-24 season) Covid-19 Vaccine ( season) [facility] Start: 01-11-2024 Covid-19 Vaccine ( season) Covid-19 Vaccine ( season) [facility] Start: 01-11-2024 Influenza vaccination Influenza Vaccine (#[facility]) [facility] Start: 01-05-2024 End: 01-05-2024 Patient encounter procedure 01/05/2024 9:00 AM EDT Office Visit [facility] [place] [address] [place] [address] Karthik Wylie APRN.[facility] [address] [place], [place] [phone] Disability Physical [facility] [place] Comment on above: Disability Physical Start: 01-03-2024 Annual PCP Team Chronic Disease Visit Annual PCP Team Chronic Disease Visit [facility] Start: 01-02-2024 Hepatitis B surface antibody level LDL Cholesterol [facility] Start: 10-29-2023 End: 10-29-2023 Patient encounter procedure 10/29/2023 9:00 AM EDT Office Visit [facility] [address] [place], [place] [phone] Shan Christianson MD [address] [place], [place] [phone] discuss colonoscopy [facility] Comment on above: discuss colonoscopy Start: 06-09-2023 Patient referral [facility] Work Phone: Start: 05-12-2023 Behavioral Health Screening Behavioral Health Screening [facility] Start: 05-12-2023 Depression Assessment Depression Assessment [facility] Start: 05-11-2023 DEPRESSION ASSESSMENT DEPRESSION ASSESSMENT [facility] Comment on above: Postponed from 05/12/2022 (Declined at t his time) Start: 03-29-2023 Electrocardiographic procedure [facility] Start: 03-28-2023 Electrocardiographic procedure [facility] Start: 03-27-2023 Patient discharge [facility] Start: 03-26-2023 Patient referral [facility] Work Phone: Start: 03-26-2023 Cardiac monitoring [facility] Start: 03-26-2023 Cardiac rehabilitation - phase 1 [facility] Start: 03-26-2023 Notification of physician [facility] Start: 03-26-2023 Patient discharge [facility] Start: 03-26-2023 Systemic arterial pressure monitoring [facility] Start: 03-26-[address] [facility] Start: 03-26-2023 Vascular disease risk assessment [facility] Start: 03-26-2023 Vital signs measurements [facility] Start: 03-26-2023 [facility] Start: 03-25-2023 Admission procedure [facility] Start: 03-25-2023 Referral to analytics specialist [facility] Start: 03-25-2023 Oxygen therapy [facility] Start: 03-25-2023 Tobacco use cessation education [facility] Start: 03-25-2023 Verification routine [facility] Start: 03-25-2023 CT angiography of chest with contrast CTA Chest W/WO Contrast [facility] Start: 03-25-2023 Hospital admission, emergency, from emergency room, medical nature [facility] Start: 03-25-2023 End: 03-25-2023 [facility] Start: 03-25-2023 Admission procedure [facility] Start: 03-24-2023 [facility] Start: 01-10-2023 Covid-19 Vaccine ( season) Covid-19 Vaccine () [facility] Start: 01-10-2023 Influenza vaccination [facility] Start: 01-01-2023 Adult depression screening assessment DEPRESSION SCREENING [facility] Start: 12-20-2022 End: 02-19-2023 CBC W Auto Differential panel - Blood CBC + DIFF Lab Routine Paroxysmal atrial fibrillation (HCC) Medication management Expected: 12/20/2022, Expires: 02/19/2023 [facility] Work Phone: Comment on above: Expected: 12/20/2022, Expires: Start: 12-20-2022 End: 02-19-2023 Comprehensive metabolic 2000 panel - Serum or Plasma COMP METABOLIC PANEL Lab Routine Mixed hyperlipidemia Expected: 12/20/2022, Expires: 02/19/2023 [facility] Work Phone: Comment on above: Expected: 12/20/2022, Expires: 3 Start: 12-20-2022 End: 02-19-2023 LIPID PANEL, NONFASTING LIPID PANEL, NONFASTING Lab Routine Mixed hyperlipidemia Expected: 12/20/2022, Expires: 02/19/2023 [facility] Work Phone: Comment on above: Expected: 12/20/2022, Expires: 3 Start: 12-20-2022 End: 02-19-2023 Urinalysis complete panel - Urine URINALYSIS, WITH MICROSCOPIC Lab Routine Mixed hyperlipidemia Expected: 12/20/2022, Expires: 02/19/2023 [facility] Work Phone: Comment on above: Expected: 12/20/2022, Expires: 3 Start: 05-29-2022 End: 07-29-2022 Hepatic function 2000 panel - Serum or Plasma HEPATIC FUNCTION PNL Lab Routine Elevated liver function tests Expected: 05/29/2022, Expires: 07/29/2022 [facility] Work Phone: Comment on above: Expected: 05/29/2022, Expires: 3 Start: 05-21-2022 End: 07-21-2022 Comprehensive metabolic 2000 panel - Serum or Plasma [facility] Work Phone: Comment on above: Expected: 05/21/2022, Expires: 3 Start: 05-16-2022 Patient discharge [facility] Start: 05-16-2022 Removal of urinary catheter [facility] Start: 05-15-2022 Irrigation of urinary bladder [facility] Start: 05-15-2022 Application of intermittent pneumatic compression device [facility] Start: 05-14-2022 Consultation [facility] Start: 05-13-2022 Assessment of risk of venous thromboembolism [facility] Start: 05-13-2022 Insertion of catheter into peripheral vein [facility] Start: 05-13-2022 Measuring intake and output [facility] Start: 05-13-2022 Providing care according to standard [facility] Start: 05-13-2022 Provision of activity privileges [facility] Start: 05-13-2022 [facility] Start: 05-13-2022 Following clinical pathway protocol [facility] Start: 05-13-2022 Verification routine [facility] Work Phone: Start: 05-13-2022 Admission procedure [facility] Start: 05-13-2022 End: 05-13-2022 [facility] Start: 05-12-2022 End: 05-13-2022 Blood culture [facility] Work Phone: Start: 05-12-2022 DEPRESSION ASSESSMENT DEPRESSION ASSESSMENT [facility] Start: 03-06-2022 End: 05-06-2022 Basic metabolic 2000 panel - Serum or Plasma BASIC METABOLIC PNL Lab Routine Renal insufficiency Expected: 03/06/2022, Expires: 05/06/2022 [facility] Work Phone: Comment on above: Expected: 03/06/2022, Expires: 2 Start: 02-19-2022 End: 04-21-2022 Basic metabolic 2000 panel - Serum or Plasma [facility] Work Phone: Comment on above: Expected: 02/19/2022, Expires: 2 Start: 02-13-2022 Patient discharge [facility] Start: 02-12-2022 Referral to teletype mechanic [facility] Start: 02-11-2022 Admission procedure [facility] Start: 02-11-2022 Consultation [facility] Start: 02-09-2022 Following clinical pathway protocol [facility] Start: 02-09-2022 Ambulation without limitation [facility] Start: 02-09-2022 Assessment of risk of venous thromboembolism [facility] Start: 02-09-2022 Insertion of catheter into peripheral vein [facility] Start: 02-09-2022 Providing care according to standard [facility] Start: 02-09-2022 Verification routine [facility] Work Phone: Start: 02-09-2022 Admission procedure [facility] Start: 02-09-2022 End: 02-09-2022 [facility] Start: 02-09-2022 Continuous pulse oximetry [facility] Work Phone: Start: 02-08-2022 End: 02-08-2022 Blood culture [facility] Work Phone: Start: 02-08-2022 End: 02-09-2022 [facility] Start: 01-12-2022 COLORECTAL CANCER SCREENING COLORECTAL CANCER SCREENING [facility] Start: 01-12-2022 Screening for malignant neoplasm of colon Colorectal Cancer Screening [facility] Start: 01-10-2022 Influenza vaccination INFLUENZA (#1) [facility] Start: 07-24-2021 COVID-19 VACCINE (4 - Booster for Pfizer series) COVID-19 VACCINE (4 - Booster for Pfizer series) [facility] Start: 05-21-2021 COVID-19 VACCINE (4 - Booster for Pfizer series) COVID-19 VACCINE (4 - Booster for Pfizer series) [facility] Start: 05-12-2021 DEPRESSION ASSESSMENT DEPRESSION ASSESSMENT [facility] Start: 2020 RSV Vaccine (1 - 1-dose 60+ series) RSV Vaccine (1 - 1-dose 60+ series) [facility] Start: 2020 RSV Vaccine (1 - Risk 60-74 years 1-dose series) RSV Vaccine (1 - Risk 60-74 years 1-dose series) [facility] Start: 07-16-2017 End: 07-16-2017 Appointment [facility] Work Phone: Start: 01-08-2017 End: 01-08-2017 Appointment Appointment [place] Work Phone: Start: 01-08-2017 End: 01-08-2017 Follow Up Appt 6 months Follow Up Appt 6 months [facility] Work Phone: Start: 01-08-2017 End: 01-08-2017 MMM MMM [place] [facility] Work Phone: Start: 10-22-2016 End: 04-25-2016 *Hepatic Function Panel *Hepatic Function Panel [facility] Work Phone: Start: 10-22-2016 End: 04-25-2016 Lipid panel [AGGREGATE] *Lipid Profile CC PCP [facility] Work Phone: Start: 04-18-2016 End: 04-23-2016 *BMP *BMP [facility] Work Phone: Start: 04-18-2016 End: 04-23-2016 *Hepatic Function Panel *Hepatic Function Panel [facility] Work Phone: Start: 04-18-2016 End: 04-23-2016 CBC W Auto Differential panel - Blood *CBC without Diff [facility] Work Phone: Start: 04-18-2016 End: 04-18-2016 Electrocardiogram, complete EKG (In office) [facility] Work Phone: Start: 04-18-2016 End: 04-18-2016 Follow Up Appt 6 months Follow Up Appt 6 months [facility] Work Phone: Start: 04-18-2016 End: 04-23-2016 Lipid panel [AGGREGATE] *Lipid Profile CC PCP [facility] Work Phone: Start: 04-18-2016 End: 04-23-2016 Magnesium *Magnesium [facility] Work Phone: Start: 04-18-2016 End: 04-18-2016 PFM PFM [facility] Work Phone: Start: 04-18-2016 End: 04-23-2016 Thyroid stimulating hormone (TSH) *TSH [facility] Work Phone: Start: 04-18-2016 End: 04-23-2016 Thyroxine (T4) *T4 (Total) [facility] Work Phone: Start: 10-16-2015 End: 10-16-2015 Follow Up Appt 6 months Follow Up Appt 6 months [facility] Work Phone: Start: 10-16-2015 End: 10-16-2015 MMM MMM [facility] Work Phone: Start: 07-11-2015 Colonoscopy COLONOSCOPY [facility] Start: 07-11-2015 COLORECTAL CANCER SCREENING COLORECTAL CANCER SCREENING [facility] Start: 07-11-2015 Screening for malignant neoplasm of colon Colonoscopy [facility] Start: 06-15-2015 End: 09-25-2015 *Hepatic Function Panel *Hepatic Function Panel [facility] Work Phone: Start: 06-15-2015 End: 09-25-2015 Lipid panel [AGGREGATE] *Lipid Profile CC PCP [facility] Work Phone: Start: 03-28-2015 End: 03-28-2015 Follow Up Appt 6 months Follow Up Appt 6 months [facility] Work Phone: Start: 03-28-2015 End: 03-28-2015 PFM PFM [facility] Work Phone: Start: 12-14-2014 End: 03-03-2015 Electrocardiogram, complete EKG (In office) [facility] Work Phone: Start: 12-14-2014 End: 03-03-2015 Follow Up Appt 3 months Follow Up Appt 3 months [facility] Work Phone: Start: 12-14-2014 End: 03-03-2015 MMM MMM [facility] Work Phone: Start: 11-08-2014 End: 12-13-2014 *Hepatic Function Panel *Hepatic Function Panel [facility] Work Phone: Start: 11-08-2014 End: 12-13-2014 Lipid panel [AGGREGATE] *Lipid Profile CC PCP [facility] Work Phone: Start: 06-22-2014 End: 06-22-2014 Follow Up Appt Other Follow Up Appt Other [facility] Work Phone: Start: 06-22-2014 End: 06-22-2014 PFM PFM [facility] Work Phone: Start: 04-20-2014 End: 04-22-2014 *BMP *BMP [facility] Work Phone: Start: 04-20-2014 End: 04-22-2014 *CBC with Differential *CBC with Differential [facility] Work Phone: Start: 04-20-2014 End: 04-22-2014 *Hepatic Function Panel *Hepatic Function Panel [facility] Work Phone: Start: 04-20-2014 End: 04-20-2014 Echocardiography Echocardiogram (complete) [facility] Work Phone: Start: 04-20-2014 End: 04-22-2014 Electrocardiogram, complete EKG (In office) [employer] Work Phone: Start: 04-20-2014 End: 04-22-2014 Follow Up Appt 2 months Follow Up Appt 2 months [facility] Work Phone: Start: 04-20-2014 End: 04-22-2014 Follow Up Appt 6 months Follow Up Appt 6 months [facility] Work Phone: Start: 04-20-2014 End: 04-22-2014 Lipid panel [AGGREGATE] *Lipid Profile CC PCP [facility] Work Phone: Start: 04-20-2014 End: 04-22-2014 Magnesium *Magnesium [facility] Work Phone: Start: 04-20-2014 End: 04-22-2014 MMM MMM [facility] Work Phone: Start: 04-20-2014 End: 04-20-2014 Nuclear stress test -exercise Nuclear stress test -exercise [facility] Work Phone: Start: 04-20-2014 End: 04-22-2014 PFM PFM [facility] Work Phone: Start: 04-20-2014 End: 04-22-2014 Thyroid stimulating hormone (TSH) *TSH [facility] Work Phone: Start: 04-20-2014 End: 04-22-2014 Thyroxine (T4) *T4 (Total) [facility] Work Phone: Start: 11-03-2013 End: 11-04-2013 Electrocardiogram, complete EKG (In office) [employer] Work Phone: Start: 11-03-2013 End: 11-04-2013 Follow Up Appt 6 months Follow Up Appt 6 months [facility] Work Phone: Start: 11-03-2013 End: 06-22-2014 Follow Up Appt Other Follow Up Appt Other [facility] Work Phone: Start: 11-03-2013 End: 11-04-2013 MMM MMM [facility] Work Phone: Start: 06-12-2013 End: 06-22-2014 *Hepatic Function Panel *Hepatic Function Panel [facility] Work Phone: Start: 06-12-2013 End: 06-22-2014 Lipid panel [AGGREGATE] *Lipid Profile CC PCP [facility] Work Phone: Start: 04-23-2013 End: 04-23-2013 Electrocardiogram, complete EKG (In office) [facility] Work Phone: Start: 04-23-2013 End: 06-22-2014 Follow Up Appt 6 months Follow Up Appt 6 months [facility] Work Phone: Start: 04-23-2013 End: 06-22-2014 PFM PFM [facility] Work Phone: Start: 01-06-2013 End: 01-05-2013 *Hepatic Function Panel *Hepatic Function Panel [facility] Work Phone: Start: 01-06-2013 End: 06-22-2014 Lipid panel [AGGREGATE] *Lipid Profile [facility] Work Phone: Start: 07-02-2012 End: 07-02-2012 Electrocardiogram, complete EKG (In office) [facility] Work Phone: Start: 07-02-2012 End: 07-02-2012 Follow Up Appt 6 months Follow Up Appt 6 months [facility] Work Phone: Start: 06-17-2012 End: 07-02-2012 *BMP *BMP [facility] Work Phone: Start: 06-17-2012 End: 07-02-2012 *Hepatic Function Panel *Hepatic Function Panel [facility] Work Phone: Start: 06-17-2012 End: 07-02-2012 Lipid panel [AGGREGATE] *Lipid Profile [facility] Work Phone: Start: 06-17-2012 End: 07-02-2012 Magnesium *Magnesium [facility] Work Phone: Start: 12-23-2011 End: 12-23-2011 Follow Up Appt 6 months Follow Up Appt 6 months [facility] Work Phone: Start: 10-16-2011 End: 12-21-2011 *Hepatic Function Panel *Hepatic Function Panel [facility] Work Phone: Start: 10-16-2011 End: 12-21-2011 Lipid panel [AGGREGATE] *Lipid Profile [facility] Work Phone: Start: 04-18-2011 End: 10-15-2011 Electrocardiogram, complete EKG (In office) [facility] Work Phone: Start: 04-18-2011 End: 04-18-2011 Follow Up Appt 6 months Follow Up Appt 6 months [facility] Work Phone: Start: 2010 Pneumococcal Vaccine: 50+ (1 of 1 - PCV) Pneumococcal Vaccine: 50+ (1 of 1 - PCV) [facility] Start: 2010 SHINGRIX VACCINE (1 of 2) SHINGRIX VACCINE (1 of 2) [facility] Start: 2005 COLOGUARD (FIT-DNA) COLOGUARD (FIT-DNA) [facility] Start: [address] COLONOGRAPHY [facility] Start: 2005 FECAL OCCULT BLOOD FECAL OCCULT BLOOD [facility] Start: 2005 Screening for malignant neoplasm of colon [facility] Start: 2005 SIGMOIDOSCOPY SIGMOIDOSCOPY [facility] Start: 1978 Depression Screening Depression Screening [facility] Bacteria identified in Blood by Culture Blood Culture [facility] Work Phone: Bacteria identified in Urine by Culture Urine Culture [facility] Work Phone: Blood culture [facility] Work Phone: CBC W Auto Different ial panel - Blood CBC + DIFF Lab Routine Acute cystitis without hematuria Hypokalemia 05/21/2022 1:30 PM EST [facility] Work Phone: COLOGUARD COLOGUARD Lab Ro utine Screening for colon cancer Ordered: 01/01/2022 [facility] Work Phone: Comment on above: Ordered: 01/01/2022 End: 06-30-2023 Ct thorax w/o contrast material CT CHEST WO IVCON Radiology Routine Persistent cough Chronic cough 1 Occurrences starting 05/31/2022 until 06/30/2023 [facility] Work Phone: Comment on above: 1 Occurrences starting 05/31/2022 until 06/30/2023 End: 02-19-2023 ECG COMPLETE ECG COMPLETE ECG Routine Paroxysmal atrial fibrillation (HCC) Medication management 1 Occurrences starting 02/19/2022 until 02/19/2023 [facility] Work Phone: Comment on above: 1 Occurrences starting 02/19/2022 until 02/19/2023 Lipid 1996 panel - S reji or Plasma [facility] Patient Education [facility] Work Phone: Patient referral [facility] Work Phone: End: 03-20-2023 Screening colonoscopy COLONOSCOPY SCREENING Endoscopy Routine Screening for colon cancer 1 Occurrences starting 03/20/2022 until 03/20/2023 [facility] Work Phone: Comment on above: 1 Occurrences starting 03/20/2022 until 03/20/2023 End: 06-30-2023 SPIROMETRY - BASELINE AND POST DILATOR SPIROMETRY - BASELINE AND POST DILATOR PFT Routine Persistent cough 1 Occurrences starting 05/31/2022 until 06/30/2023 [facility] Work Phone: Comment on above: 1 Occurrences starting 05/31/2022 until 06/30/2023 SPIROMETRY - BASELIN E AND POST DILATOR SPIROMETRY - BASELINE AND POST DILATOR PFT Routine Persistent cough 06/04/2022 10:11 AM EST [facility] Work Phone: Urine culture Urine Culture [facility] Work Phone: End: 09-30-2024 XR Knee - right 4 Views XR KNEE GENERAL 4V AP BOTH/PA BOTH/LAT/MERC RIGHT Radiology Routine Acute pain of right knee 1 Occurrences starting 2023 until 09/30/2024 [facility] Work Phone: Comment on above: 1 Occurrences starting 2023 until 09/30/2024 XR Knee - right 4 Views XR KNEE GENERAL 4V AP BOTH/PA BOTH/LAT/MERC RIGHT Radiology Routine Acute pain of right knee 2023 11:43 AM EDT [facility] Immunizations Immunization Date Immunization Notes Care Provider Jennifer george 04-14-2024 influenza, seasonal, injectable Immunization [place] Work Phone: [facility] 04-14-2023 influenza, injectabl e, quadrivalent, contains preservative Alivia Frank APRN.MICHAEL Work Phone: [facility] 04-14-2023 influenza virus vaccine, unspecified formulation Shan Christianson MD Work Phone: [facility] 02-19-2022 COVID-19 booster vaccine, age 12+ yr, bivalent ([employer] Shan Christianson MD Work Phone: [facility] 01-16-2022 influenza, injectabl e, quadrivalent, contains preservative Shan Christianson MD Work Phone: [facility] 01-16-2022 influenza, injectabl e, quadrivalent, preservative free Dr. Shan Christianson Work Phone: [facility] 01-16-2022 influenza, seasonal, injectable No Primary Care Physician [facility] 01-16-2022 influenza virus vaccine, unspecified formulation Shan Christianson MD Work Phone: [facility] 03-26-2021 Covid (Pfizer) No Primary Ca re Physician [facility] 07-12-2020 Covid (Pfizer) No Primary Ca re Physician [facility] 06-21-2020 Covid (Pfizer) No Primary Ca re Physician [facility] 02-10-2020 influenza, injectabl e, quadrivalent, contains preservative Mayuri Collins PA-C Work Phone: [facility] 02-08-2019 influenza, injectabl e, quadrivalent, contains preservative Mayuri Collins PA-C Work Phone: [facility] 02-18-2018 influenza, injectabl e, quadrivalent, contains preservative Mayuri Collins PA-C Work Phone: [facility] 03-10-2017 influenza, injectabl e, quadrivalent, contains preservative Mayuri Collins PA-C Work Phone: [facility] 03-13-2016 influenza, injectabl e, quadrivalent, contains preservative Mayuri Collins PA-C Work Phone: [facility] 10-04-2015 tetanus toxoid, reduced diphtheria toxoid, and acellular pertussis vaccine, adsorbed Mayuri Collins PA-C Work Phone: [facility] 04-19-2015 influenza, injectabl e, quadrivalent, contains preservative Mayuri Collins PA-C Work Phone: [facility] 02-18-2014 influenza, seasonal, injectable Mayuri Collins PA-C Work Phone: [facility] 02-26-2013 influenza virus vaccine, unspecified formulation Mayuri Collins PA-C Work Phone: [facility] 02-11-2012 influenza virus vaccine, unspecified formulation Mayuri Collins PA-C Work Phone: [facility] 02-11-2012 tetanus toxoid, reduced diphtheria toxoid, and acellular pertussis vaccine, adsorbed Mayuri Collins PA-C Work Phone: [facility] Payers Date Payer Category Payer Medicare MMO MEDICARE MMO MEDADVANTAGE O [id number] 2024-Present [phone] [address] [place] [address] HMO [id number] 2024 Unknown [id number] 2023 Self-pay [id number] 2021 Unknown [id number] 2021 Unknown [id number] 2016 Unknown [id number] MEDICARE PART A B [id number] Unknown [id number] Unknown [id number] Unknown [id number] Unknown [id number] Unknown [id number] Unknown [id number] Unknown [id number] Unknown [id number] Unknown [id number] Unknown [id number] Unknown [id number] Unknown [id number] [id number] Unknown [id number] Unknown [id number] [id number] Unknown [id number] [id number] Unknown [id number] [id number] Unknown [id number] [id number] Unknown [id number] Unknown [id number] Unknown [id number] Unknown [id number] Social History Date Type Detail Facility Tobacco smoking stat NHIS Never smoked tobacco [facility] Start: 01-01-2022 End: 06-04-2022 Alcohol intake Current drinker of alcohol (finding) [facility] Start: 01-01-2022 End: 01-02-2023 Alcohol intake [facility] Start: 07-09-2010 History SDOH Alcohol Comment SOCIAL BEER [facility] Start: 1960 Sex Assigned At Not on file [facility] Start: 12-22-2021 End: 02-14-2022 Exposure to SARS-CoV-2 (event) Not sure [facility] Start: 02-08-2022 End: 07-25-2023 Tobacco smoking status NHIS Unknown if ever smoked [facility] Start: 12-18-[address] [facility] Start: 12-18-2019 Spouse/ Signif icant Other [facility] Start: 12-18-2019 Non-smoker [facility] Start: 1960 Sex Assigned At Male W [facility] Start: 01-29-2022 End: 02-08-2022 Exposure to SARS-CoV-2 (event) Yes [facility] Start: 01-02-2023 End: 04-27-2024 Alcohol intake Ex-drinker (finding) [facility] Start: 01-02-2023 End: 04-13-2023 Tobacco use panel [facility] Adult Depression Screening Assessment 0 [facility] Has the [employer], or [employer] threatened to shut off services in your home in past 12Mo No [facility] Are you now , , , , never or living with a partner? [facility] How often to you hav e a drink containing alcohol? 2-4 times a month [facility] How many standard drinks containing alcohol do you have on a typical day? 1 or 2 [facility] How often do you hav e 6 or more drinks on 1 occasion? Never [facility] Do you feel stress - tense, restless, nervous, or anxious, or unable to sleep at night because your mind is troubled all the time - these days [OSQ] To some extent [facility] (I/We) worried rupa er (my/our) food would run out before (I/we) got money to buy more. Never true [facility] Medical Equipment Procedure Code Equipment Code Equipment Origin al Text Equipment Identifier Dates Drug-eluting coronary artery stent, [id number] lymer-coated ()[id number] FDA Start: 03-26-2023 Goals Date Patient Goal Desired Activity /State Functional Status Date Assessment Result Facility 03-27-2023 Functional status Ambulates;Up ad paulo [facility] Work Phone: 05-16-2022 Functional status Ambulates [facility] Work Phone: 02-13-2022 Functional status Ambulates [facility] Work Phone: 02-12-2022 Functional status None [facility] Work Phone: Mental Status Date Assessment Result Facility 03-27-2023 Cognitive function Voice/Name [facility] Work Phone: 03-24-2023 Cognitive function Level Of Cons ciousness Awake;Alert;Appropriate;Follow s Commands [facility] Work Phone: 05-16-2022 Cognitive function Level Of Cons ciousness Awake;Alert;Appropriate [facility] Work Phone: 05-15-2022 Cognitive function Voice/Name [facility] Work Phone: 02-12-2022 Cognitive function Voice/Name [facility] Work Phone: Clinical Notes 12-18-2019 to 05-14-2024 Telephone Encounter - Abdulaziz Smith MA - 05/14/2024 11:25 AM ESTTelephone Encounter - Abdulaziz Smith MA - 05/14/2024 11:25 AM Salomón Shelby RT(Elizabeth) - 05/14/2024 10:40 AM EST Note Date & Type Note Facility 05-14-2024 Telephone encounter Note Pt notified and verbalized understanding Abdulaziz Smith MA [facility] 05-14-2024 Miscellaneous Notes Pt notified and verbalized understanding Abdulaziz Smith MA Please let patient know their xray is normal. I have sent in a prescription for prednisone. documented in this encounter [facility] 05-14-2024 Telephone encounter Note Please let patient know their xray is normal. I have sent in a prescription for prednisone. [facility] 05-14-2024 History of Presen t illness Narrative Radiology Service Progress Note PATIENT NAME: Jeramy Wood DATE OF SERVICE: May 14, 2024 TIME: 10:32 AM PATIENT IDENTITY VERIFICATION COMPLETED USING TWO (2) IDENTIFIERS: Name and Date of confirmed by patient verbally. FALL SCREENING: Has the patient had 2 falls in the last year or 1 fall with injury or currently using an Ambulatory Assistive Device (Walker, Cane, Wheelchair, Crutches, etc.)? No PATIENT GENDER DATA: Male PATIENT RELEVANT IMPLANT DATA REVIEWED: Yes PATIENT PRESENTS WITH AN IMPLANTABLE OR ATTACHED FULL TIME STAFF INTERPRETER: No RADIOLOGY DEPARTMENT: General X-ray: Exam(s) Completed: Chest X-Ray PERIPHERAL IV DATA: Not applicable SIGNED BY: RT Abby(R) May 14, 2024 10:32 AM documented in this encounter [facility] 05-14-2024 Note HNO ID: [id number] Author: SALOMÓN SALGADO RT(Elizabeth) Service: ? Author Type: Treating Plant Operator Type: Progress Notes Filed: 05/14/2024 10:39 Note Text: Radiology Service Progress Note PATIENT NAME: Jeramy Wood DATE OF SERVICE: May 14, 2024 TIME: 10:32 AM PATIENT IDENTITY VERIFICATION COMPLETED USING TWO (2) IDENTIFIERS: Name and Date of confirmed by patient verbally. FALL SCREENING: Has the patient had 2 falls in the last year or 1 fall with injury or currently using an Ambulatory Assistive Device (Walker, Cane, Wheelchair, Crutches, etc.)? No PATIENT GENDER DATA: Male PATIENT RELEVANT IMPLANT DATA REVIEWED: Yes PATIENT PRESENTS WITH AN IMPLANTABLE OR ATTACHED FULL TIME STAFF INTERPRETER: No RADIOLOGY DEPARTMENT: General X-ray: Exam(s) Completed: Chest X-Ray PERIPHERAL IV DATA: Not applicable SIGNED BY: RT Abby(R) May 14, 2024 10:32 AM [facility] 05-14-2024 Note HNO ID: [id number] Author: KARTHIK WYLIE APRN.PROOF PLATE MAKER Service: ? Author Type: Nurse Practitioner Type: Progress Notes Filed: 05/14/2024 10:19 Note Text: Chief Complaint Patient presents with: Follow Up HPI Jeramy Wood is a 63 year old male who presents here today for Above Complaints.. Patient presents for PNA follow up. Patient [facility]/congestion and was placed on antibiotic. On 04/27 he was seen by Dr. Christianson and a CXR was completed which showed no infiltrates and patient was instructed to swtich to levofloxacin. Patient completed levofloxacin and continues to have productive cough and SPO2 91-92%. Denies fever. Reports fatigue and some SOB with exertion. Using IS from previous hospitalization. Past medical history, appointments, medications, allergies reviewed. Previous Medical History PAST MEDICAL HISTORY Diagnosis Date Abdominal wall hernia 02/26/2013 Abdominal wall pain 01/01/2022 Acquired abdominal wall defect 03/13/2016 Acute embolism and thrombosis of deep vein of distal lower extremity ([facility]) Acute renal failure ([facility]) 06/01/2010 SECONDARY TO SEPTIC SHOCK, RECOVERED ON OWN Anxiety 03/10/2017 Atrial fibrillation ([facility]) 12/18/2005 Benign prostatic hyperplasia with urinary frequency 02/08/2019 Sees Kay Duran NP with Dr. Jama BPH (benign prostatic hyperplasia) 05/21/2022 Dr. Jama. S/p TURP Cardiomyopathy in diseases classified elsewhere ([facility]) Cardiomyopathy, nonischemic ([facility]) 02/08/2019 associated with atrial fibrillation--well controlled. 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 Prano Septic shock(785.52) 06/01/2010 Small bowel obstruction (HCC) FOUND 06-01-10 ? FROM LAPRASCOPUIC HERNIA SURGERY Well adult exam 12/29/2020 Last done: 01/01/2022 Previous Surgical History PAST SURGICAL HISTORY Procedure Laterality Date ARTL CATHJ/CANNULJ MNTR/TRANSFUSION SPX PRQ 05/30/2010 CC CORONARY STENT 03/2023 stent to LAD COLONOSCOPY 07/03/2010 EXPLORATION ABDOMINAL WALL 06/13/2010 evacuation abdominal hematoma EXPLORATORY LAPAROTOMY, CELIOTOMY-SP 06/02/2010 placement of abdominal vac-pack EXPLORATORY LAPAROTOMY, CELIOTOMY-SP 06/02/2010 bowel resection, abdominal wash out EXPLORATORY LAPAROTOMY, CELIOTOMY-SP 06/08/2010 small bowel anastomosis INGUINAL HERNIA REPAIR HX Bilateral 05/28/2010 IR IVC FILTER PLACEMENT 07/19/2010 Bard Eclipse Filter LAPAROSCOPY APPENDECTOMY 2019 NASAL SEPTUM REPOS W STABILIZATION 1980 PAST SURGICAL HISTORY OF 06/05/2010 reopening of recent laparotomy PAST SURGICAL HISTORY OF 06/11/2010 reopening of recent laparotomy, removal infected mesh PAST SURGICAL HISTORY OF 06/14/2010 reopening of recent laparotomy, abdominal wash out PAST SURGICAL HISTORY OF Left Heart catheterization PT ED HEART AND VASCULAR 03/26/2023 mid [facility] TRANSURETHRAL ELEC-SURG PROSTATECTOM 05/2022 UPPER GI ENDOSCOPY DIAGNOSTIC 07/02/2010 Family History FAMILY HISTORY Problem Relation Age of Onset Colon Cancer Mother 70 Coronary Artery Disease Mother other (Heart Disease) Mother other (amyotropic lateral sclerosis) Father Multiple Sclerosis Brother Multiple Sclerosis Sister Diabetes Maternal Grandfather Patient Allergies ALLERGIES Allergen Reactions Lipitor [Atorvastat* Myalgia Current Medications Current Outpatient Medications on File Prior to Visit Medication Sig diclofenac (VOLTAREN ARTHRITIS PAIN) 1 % topical gel Apply 4 g to affected area four times daily. aspirin 81 mg cap Take 81 mg by mouth once daily. ticagrelor (BRILINTA) 90 mg tablet TWICE A DAY metoprolol tartrate, short acting, (LOPRESSOR) 25 mg tablet Take 1 tablet by mouth twice daily. COMPOUNDED PRESCRIPTION OTC sleep aid Diphenhydramine 50 mg No current facility-administered medications on file prior to visit. Social History Social History Tobacco Use Smoking status: Never Smokeless tobacco: Never Vaping Use Vaping status: Never Used Substance Use Topics Alcohol use: Not Currently Comment: SOCIAL BEER Drug use: No Review of Symptoms REVIEW OF SYSTEMS SEE HPI EXAM: BP 108/70 Pulse 73 Resp 14 Wt 84.4 kg (186 lb) SpO2 96% BMI 25.23 kg/m? General Appearance: Well appearing, alert, in no acute distress, well-hydrated, well nourished. Lungs (more content not included)... [facility] 05-14-2024 History of Presen t illness Narrative Chief Complaint Patient presents with: Follow Up HPI Jeramy Wood is a 63 year old male who presents here today for Above Complaints.. Patient presents for PNA follow up. Patient was initially seen on 04/21 at [facility] for cough/congestion and was placed on antibiotic. On 04/27 he was seen by Dr. Christianson and a CXR was completed which showed no infiltrates and patient was instructed to swtich to levofloxacin. Patient completed levofloxacin and continues to have productive cough and SPO2 91-92%. Denies fever. Reports fatigue and some SOB with exertion. Using IS from previous hospitalization. Past medical history, appointments, medications, allergies reviewed. Previous Medical History PAST MEDICAL HISTORY Diagnosis Date Abdominal wall hernia 02/26/2013 Abdominal wall pain 01/01/2022 Acquired abdominal wall defect 03/13/2016 Acute embolism and thrombosis of deep vein of distal lower extremity ([facility]) Acute renal failure (HCC) 06/01/2010 SECONDARY TO SEPTIC SHOCK, RECOVERED ON OWN Anxiety 03/10/2017 Atrial fibrillation (HCC) 12/18/2005 Benign prostatic hyperplasia with urinary frequency 02/08/2019 Sees Kay Duran NP with Dr. Jama BPH (benign prostatic hyperplasia) 05/21/2022 Dr. Jama. S/p TURP Cardiomyopathy in diseases classified elsewhere (HCC) Cardiomyopathy, nonischemic (HCC) 02/08/2019 associated with atrial fibrillation--well controlled. 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 Maher Septic shock(785.52) 06/01/2010 Small bowel obstruction (HCC) FOUND 06-01-10 ? FROM LAPRASCOPUIC HERNIA SURGERY Well adult exam 12/29/2020 Last done: 01/01/2022 Previous Surgical History PAST SURGICAL HISTORY Procedure Laterality Date ARTL CATHJ/CANNULJ MNTR/TRANSFUSION SPX PRQ 05/30/2010 CC CORONARY STENT 03/2023 stent to LAD COLONOSCOPY 07/03/2010 EXPLORATION ABDOMINAL WALL 06/13/2010 evacuation abdominal hematoma EXPLORATORY LAPAROTOMY, CELIOTOMY-SP 06/02/2010 placement of abdominal vac-pack EXPLORATORY LAPAROTOMY, CELIOTOMY-SP 06/02/2010 bowel resection, abdominal wash out EXPLORATORY LAPAROTOMY, CELIOTOMY-SP 06/08/2010 small bowel anastomosis INGUINAL HERNIA REPAIR HX Bilateral 05/28/2010 IR IVC FILTER PLACEMENT 07/19/2010 Bard Eclipse Filter LAPAROSCOPY APPENDECTOMY 2019 NASAL SEPTUM REPOS W STABILIZATION 1979 PAST SURGICAL HISTORY OF 06/05/2010 reopening of recent laparotomy PAST SURGICAL HISTORY OF 06/11/2010 reopening of recent laparotomy, removal infected mesh PAST SURGICAL HISTORY OF 06/14/2010 reopening of recent laparotomy, abdominal wash out PAST SURGICAL HISTORY OF Left Heart catheterization PT ED HEART AND VASCULAR 03/26/2023 mid [facility] TRANSURETHRAL ELEC-SURG PROSTATECTOM 05/2022 UPPER GI ENDOSCOPY DIAGNOSTIC 07/02/2010 Family History FAMILY HISTORY Problem Relation Age of Onset Colon Cancer Mother 70 Coronary Artery Disease Mother other (Heart Disease) Mother other (amyotropic lateral sclerosis) Father Multiple Sclerosis Brother Multiple Sclerosis Sister Diabetes Maternal Grandfather Patient Allergies ALLERGIES Allergen Reactions Lipitor [Atorvastat* Myalgia Current Medications Current Outpatient Medications on File Prior to Visit Medication Sig diclofenac (VOLTAREN ARTHRITIS PAIN) 1 % topical gel Apply 4 g to affected area four times daily. aspirin 81 mg cap Take 81 mg by mouth once daily. ticagrelor (BRILINTA) 90 mg tablet TWICE A DAY metoprolol tartrate, short acting, (LOPRESSOR) 25 mg tablet Take 1 tablet by mouth twice daily. COMPOUNDED PRESCRIPTION OTC sleep aid Diphenhydramine 50 mg No current facility-administered medications on file prior to visit. Social History Social History Tobacco Use Smoking status: Never Smokeless tobacco: Never Vaping Use Vaping status: Never Used Substance Use Topics Alcohol use: Not Currently Comment: SOCIAL BEER Drug use: No Review of Symptoms REVIEW OF SYSTEMS SEE HPI EXAM: BP 108/70 Pulse 73 Resp 14 Wt 84.4 kg (186 lb) SpO2 96% BMI 25.23 kg/m General Appearance: Well appearing, alert, in no acute distress, well-hydrated, well nourished. Lungs: Positive findings: wheezing Cough. Heart: RRR without murmur, gallop, or rubs. No ectopy. Health Maintenance List Depression Screening Never done Shingrix Vaccine(1 of 2) Never done Pneumococcal Vaccine: 50+(1 of 1 - PCV) Never done Colorectal Cancer Screening due on 01/12/2022 LDL Cholesterol due on 01/02/2024 Covid-19 Vaccine() due on 01/11/2024 Annual PCP Team Chronic Disease Visit due on 04/27/2025 DTaP,Tdap,Td Vaccine(3 - Td or Tdap) due on 10/03/2025 Diabetes Screening due on 01/01/2026 Prostate Cancer Screening Discussion due on 09/28/2027 Lipid Screening due on 01/02/2028 RSV Vaccine(1 - 1-dose 75+ series) due on 09/02/2035 Influenza Vaccine Completed Hepatitis C Screening Completed HPV Vaccine Aged Out HIV Screening Discontinued ASSESSMENT/PLAN: 1. Productive cough - ICD9: 786.2, ICD10: R05.8 (primary diagnosis) - XR CHEST 2V FRONTAL/LAT 2. Bacterial pneumonia - ICD9: 482.9, ICD10: J15.9 - XR CHEST 2V FRONTAL/LAT Karthik Wylie APRN.PROOF PLATE MAKER documented in this encounter [facility] 05-13-2024 Telephone encounter Note Patient calls to report continues to have productive cough and tired. Feels that symptoms are worse than before. SPO2 91-92%. ATB completed. Tessalon pearls not effective. Patient seen on 04/27/2024 for bacterial pneumonia. Follow up appt scheduled per OV notes. Sriram Nuñez RN [facility] 05-13-2024 Miscellaneous Notes Patient calls to report continues to have productive cough and tired. Feels that symptoms are worse than before. SPO2 91-92%. ATB completed. Tessalon pearls not effective. Patient seen on 04/27/2024 for bacterial pneumonia. Follow up appt scheduled per OV notes. Sriram Nuñez RN documented in this encounter [facility] 04-27-2024 Telephone encounter Note Pt called and is notified of providers results and instructions. Pt voices understanding. Awa Mann RN [facility] 04-27-2024 Miscellaneous Notes Pt called and is notified of providers results and instructions. Pt voices understanding. Awa Mann RN Let patient know chest x-ray does not show any infiltrates, however is under hydrated that can be normal. Cont current Tx plan. documented in this encounter [facility] 04-27-2024 Telephone encounter Note Let patient know chest x-ray does not show any infiltrates, however is under hydrated that can be normal. Cont current Tx plan. [facility] 04-27-2024 History of Presen t illness Narrative Radiology Service Progress Note PATIENT NAME: Jeramy Wood DATE OF SERVICE: April 27, 2024 TIME: 2:50 PM PATIENT IDENTITY VERIFICATION COMPLETED USING TWO (2) IDENTIFIERS: Name and Date of confirmed by patient verbally. FALL SCREENING: Has the patient had 2 falls in the last year or 1 fall with injury or currently using an Ambulatory Assistive Device (Walker, Cane, Wheelchair, Crutches, etc.)? No PATIENT GENDER DATA: Male PATIENT RELEVANT IMPLANT DATA REVIEWED: Yes PATIENT PRESENTS WITH AN IMPLANTABLE OR ATTACHED FULL TIME STAFF INTERPRETER: No RADIOLOGY DEPARTMENT: General X-ray: Exam(s) Completed: Chest X-Ray PERIPHERAL IV DATA: Not applicable SIGNED BY: RT Abby(Elizabeth) April 27, 2024 2:50 PM documented in this encounter [facility] 04-27-2024 Note HNO ID: [id number] Author: SALOMÓN SALGADO RT(R) Service: ? Author Type: Treating Plant Operator Type: Progress Notes Filed: 04/27/2024 14:58 Note Text: Radiology Service Progress Note PATIENT NAME: Jeramy Wood DATE OF SERVICE: April 27, 2024 TIME: 2:50 PM PATIENT IDENTITY VERIFICATION COMPLETED USING TWO (2) IDENTIFIERS: Name and Date of confirmed by patient verbally. FALL SCREENING: Has the patient had 2 falls in the last year or 1 fall with injury or currently using an Ambulatory Assistive Device (Walker, Cane, Wheelchair, Crutches, etc.)? No PATIENT GENDER DATA: Male PATIENT RELEVANT IMPLANT DATA REVIEWED: Yes PATIENT PRESENTS WITH AN IMPLANTABLE OR ATTACHED FULL TIME STAFF INTERPRETER: No RADIOLOGY DEPARTMENT: General X-ray: Exam(s) Completed: Chest X-Ray PERIPHERAL IV DATA: Not applicable SIGNED BY: RT Abby(Elizabeth) April 27, 2024 2:50 PM [facility] 04-27-2024 History of Presen t illness Narrative Chief Complaint Patient presents with: Follow Up HPI Jeramy Wood is a 63 year old male who presents here today for follow up on pneumonia. Patient was seen at the [facility] on 04/21/2024 for cough/congestion. Patient was placed on antibiotic but feels that he is getting worse rather than better. [facility] did not complete a chest x-ray at that time; nor test patient for COVID/FLU/RSV Patient is currently on Benzonatate for cough and Azithromycin 250 mg two the first day and then one a day for the next 10 days Was patient tested for COVID/Flu/RSV? None Sinus drainage? Patient indicated started around the Apr Cough? Bringing up anything? Patient notified several times of coughing up of blood. Otherwise cough has been yellow green. Fever? Patient noted chills. Patient has noticed increased wheezing at night time. Some slight shortness of breath. No ear pain, Had swelling in the maxillary regions initially. No nasal discharge. Some post nasal drainage with no sore throat. No nausea, vomiting or diarrhea. Two grandchildren and his did have pneumonia. Past medical history, appointments, medications, allergies reviewed. Previous Medical History PAST MEDICAL HISTORY Diagnosis Date Abdominal wall hernia 02/26/2013 Abdominal wall pain 01/01/2022 Acquired abdominal wall defect 03/13/2016 Acute embolism and thrombosis of deep vein of distal lower extremity ([facility]) Acute renal failure ([facility]) 06/01/2010 SECONDARY TO SEPTIC SHOCK, RECOVERED ON OWN Anxiety 03/10/2017 Atrial fibrillation ([facility]) 12/18/2005 Benign prostatic hyperplasia with urinary frequency 02/08/2019 Sees Kay Duran NP with Dr. Jama BPH (benign prostatic hyperplasia) 05/21/2022 Dr. Jama. S/p TURP Cardiomyopathy in diseases classified elsewhere ([facility]) Cardiomyopathy, nonischemic ([facility]) 02/08/2019 associated with atrial fibrillation--well controlled. 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 Maher Septic shock(785.52) 06/01/2010 Small bowel obstruction (HCC) FOUND 06-01-10 ? FROM LAPRASCOPUIC HERNIA SURGERY Well adult exam 12/29/2020 Last done: 01/01/2022 Previous Surgical History PAST SURGICAL HISTORY Procedure Laterality Date ARTL CATHJ/CANNULJ MNTR/TRANSFUSION SPX PRQ 05/30/2010 CC CORONARY STENT 03/2023 stent to LAD COLONOSCOPY 07/03/2010 EXPLORATION ABDOMINAL WALL 06/13/2010 evacuation abdominal hematoma EXPLORATORY LAPAROTOMY, CELIOTOMY-SP 06/02/2010 placement of abdominal vac-pack EXPLORATORY LAPAROTOMY, CELIOTOMY-SP 06/02/2010 bowel resection, abdominal wash out EXPLORATORY LAPAROTOMY, CELIOTOMY-SP 06/08/2010 small bowel anastomosis INGUINAL HERNIA REPAIR HX Bilateral 05/28/2010 IR IVC FILTER PLACEMENT 07/19/2010 Bard Eclipse Filter LAPAROSCOPY APPENDECTOMY 2019 NASAL SEPTUM REPOS W STABILIZATION 1980 PAST SURGICAL HISTORY OF 06/05/2010 reopening of recent laparotomy PAST SURGICAL HISTORY OF 06/11/2010 reopening of recent laparotomy, removal infected mesh PAST SURGICAL HISTORY OF 06/14/2010 reopening of recent laparotomy, abdominal wash out PAST SURGICAL HISTORY OF Left Heart catheterization PT ED HEART AND VASCULAR 03/26/2023 mid [facility] TRANSURETHRAL ELEC-SURG PROSTATECTOM 05/2022 UPPER GI ENDOSCOPY DIAGNOSTIC 07/02/2010 Family History FAMILY HISTORY Problem Relation Age of Onset Colon Cancer Mother 70 Coronary Artery Disease Mother other (Heart Disease) Mother other (amyotropic lateral sclerosis) Father Multiple Sclerosis Brother Multiple Sclerosis Sister Diabetes Maternal Grandfather Patient Allergies ALLERGIES Allergen Reactions Lipitor [Atorvastat* Myalgia Current Medications Current Outpatient Medications on File Prior to Visit Medication Sig diclofenac (VOLTAREN ARTHRITIS PAIN) 1 % topical gel Apply 4 g to affected area four times daily. aspirin 81 mg cap Take 81 mg by mouth once daily. ticagrelor (BRILINTA) 90 mg tablet TWICE A DAY metoprolol tartrate, short acting, (LOPRESSOR) 25 mg tablet Take 1 tablet by mouth twice daily. COMPOUNDED PRESCRIPTION OTC sleep aid Diphenhydramine 50 mg No current facility-administered medications on file prior to visit. Social History Social History Tobacco Use Smoking status: Never Smokeless tobacco: Never Vaping Use Vaping status: Never Used Substance Use Topics Alcohol use: Not Currently Comment: SOCIAL BEER Drug use: No Review of Symptoms REVIEW OF SYSTEMS See HPI EXAM: BP 102/62 Pulse 75 Temp 36.2 C (97.2 F) (Tympanic) Resp 22 Wt 83.5 kg (184 lb) SpO2 98% BMI 24.95 kg/m General Appearance: Well appearing, alert, in no acute distress, well-hydrated, well nourished.. Eyes: Anicteric sclera. Pupils are equally round. Extraocular movements are intact. . Ears: External ears, TM's normal, canals clear. Nose/Sinuses: Nares normal, septum midline, mucosa normal, no drainage or sinus tenderness. Oropharynx: Lips, mucosa, and tongue normal, teeth and gums normal, oropharynx normal. Neck: Supple, no adenopathy; thyroid symmetric, normal size, no bruits. Lungs: No wheezing, rhonchi, rales.. scattered coarse breath sounds with faint dry crackles on the right. . Heart: RRR without murmur, gallop, or rubs. No ectopy. Health Maintenance List Depression Screening Never done Shingrix Vaccine(1 of 2) Never done Pneumococcal Vaccine: 50+(1 of 1 - PCV) Never done Colorectal Cancer Screening due on 01/12/2022 LDL Cholesterol due on 01/02/2024 Covid-19 Vaccine(2023- season) due on 01/11/2024 Annual PCP Team Chronic Disease Visit due on 01/04/2025 DTaP,Tdap,Td Vaccine(3 - Td or Tdap) due on 10/03/2025 Diabetes Screening due on 01/01/2026 Prostate Cancer Screening Discussion due on 09/28/2027 Lipid Screening due on 01/02/2028 RSV Vaccine(1 - 1-dose 75+ series) due on 09/02/2035 Influenza Vaccine Completed Hepatitis C Screening Completed HPV Vaccine Aged Out HIV Screening Discontinued Data reviewed A/P ASSESSMENT/PLAN: 1. Bacterial pneumonia - ICD9: 482.9, ICD10: J15.9 (primary diagnosis) - patient to complete the azithromycin he is on and will add Levaquin 500 mg a day for 10 days. - patient to cont the tessalon pearls as needed. - encouraged fluids. Check - XR CHEST 2V FRONTAL/LAT 2. Scattered respiratory crackles of right lung - ICD9: 786.7, ICD10: R09.89 Check - XR CHEST 2V FRONTAL/LAT Requested Prescriptions Signed Prescriptions Disp Refills levoFLOXacin (LEVAQUIN) 500 mg tablet 10 tablet 0 Sig: Take 1 tablet by mouth once daily for 10 days. F/u if not improving. Shan Christianson MD documented in this encounter [facility] 04-27-2024 Note HNO ID: [id number] Author: SHAN CHRISTIANSON MD Service: ? Author Type: Physician Type: Progress Notes Filed: 04/27/2024 15:09 Note Text: Chief Complaint Patient presents with: Follow Up HPI Jeramy Wood is a 63 year old male who presents here today for follow up on pneumonia. [facility] for cough/congestion. Patient was placed on antibiotic but feels that he is getting worse rather than better. [facility] did not complete a chest x-ray at that time; nor test patient for COVID/FLU/RSV Patient is currently on Benzonatate for cough and Azithromycin 250 mg two the first day and then one a day for the next 10 days Was patient tested for COVID/Flu/RSV? None Sinus drainage? Patient indicated started around the 9 of Apr Cough? Bringing up anything? Patient notified several times of coughing up of blood. Otherwise cough has been yellow green. Fever? Patient noted chills. Patient has noticed increased wheezing at night time. Some slight shortness of breath. No ear pain, Had swelling in the maxillary regions initially. No nasal discharge. Some post nasal drainage with no sore throat. No nausea, vomiting or diarrhea. Two grandchildren and his did have pneumonia. Past medical history, appointments, medications, allergies reviewed. Previous Medical History PAST MEDICAL HISTORY Diagnosis Date Abdominal wall hernia 02/26/2013 Abdominal wall pain 01/01/2022 Acquired abdominal wall defect 03/13/2016 Acute embolism and thrombosis of deep vein of distal lower extremity (HCC) Acute renal failure (HCC) 06/01/2010 SECONDARY TO SEPTIC SHOCK, RECOVERED ON OWN Anxiety 03/10/2017 Atrial fibrillation (HCC) 12/18/2005 Benign prostatic hyperplasia with urinary frequency 02/08/2019 Sees Kay Duran NP with Dr. Jama BPH (benign prostatic hyperplasia) 05/21/2022 Dr. Jama. S/p TURP Cardiomyopathy in diseases classified elsewhere ([facility]) Cardiomyopathy, nonischemic ([facility]) 02/08/2019 associated with atrial fibrillation--well controlled. 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 Maher Septic shock(785.52) 06/01/2010 Small bowel obstruction ([facility]) FOUND 06-01-10 ? FROM LAPRASCOPUIC HERNIA SURGERY Well adult exam 12/29/2020 Last done: 01/01/2022 Previous Surgical History PAST SURGICAL HISTORY Procedure Laterality Date ARTL CATHJ/CANNULJ MNTR/TRANSFUSION SPX PRQ 05/30/2010 CC CORONARY STENT 03/2023 stent to LAD COLONOSCOPY 07/03/2010 EXPLORATION ABDOMINAL WALL 06/13/2010 evacuation abdominal hematoma EXPLORATORY LAPAROTOMY, CELIOTOMY-SP 06/02/2010 placement of abdominal vac-pack EXPLORATORY LAPAROTOMY, CELIOTOMY-SP 06/02/2010 bowel resection, abdominal wash out EXPLORATORY LAPAROTOMY, CELIOTOMY-SP 06/08/2010 small bowel anastomosis INGUINAL HERNIA REPAIR HX Bilateral 05/28/2010 IR IVC FILTER PLACEMENT 07/19/2010 Bard Eclipse Filter LAPAROSCOPY APPENDECTOMY 2019 NASAL SEPTUM REPOS W STABILIZATION 1980 PAST SURGICAL HISTORY OF 06/05/2010 reopening of recent laparotomy PAST SURGICAL HISTORY OF 06/11/2010 reopening of recent laparotomy, removal infected mesh PAST SURGICAL HISTORY OF 06/14/2010 reopening of recent laparotomy, abdominal wash out PAST SURGICAL HISTORY OF Left Heart catheterization PT ED HEART AND VASCULAR 03/26/2023 mid [facility] TRANSURETHRAL ELEC-SURG PROSTATECTOM 05/2022 UPPER GI ENDOSCOPY DIAGNOSTIC 07/02/2010 Family History FAMILY HISTORY Problem Relation Age of Onset Colon Cancer Mother 70 Coronary Artery Disease Mother other (Heart Disease) Mother other (amyotropic lateral sclerosis) Father Multiple Sclerosis Brother Multiple Sclerosis Sister Diabetes Maternal Grandfather Patient Allergies ALLERGIES Allergen Reactions Lipitor [Atorvastat* Myalgia Current Medications Current Outpatient Medications on File Prior to Visit Medication Sig diclofenac (VOLTAREN ARTHRITIS PAIN) 1 % topical gel Apply 4 g to affected area four times daily. aspirin 81 mg cap Take 81 mg by mouth once daily. ticagrelor (BRILINTA) 90 mg tablet TWICE A DAY metoprolol tartrate, short acting, (LOPRESSOR) 25 mg tablet Take 1 tablet by mouth twice daily. COMPOUNDED PRESCRIPTION OTC sleep aid Diphenhydramine 50 mg No current facility-administered medications on file prior to visi (more content not included)... [facility] 03-18-2024 Note HNO ID: [id number] Author: YOLANDA GREEN MA Service: ? Author Type: Veneer Patcher Type: Progress Notes Filed: 03/18/2024 13:26 Note Text: Scan on 03/18/2024 11:39 AM by Fco Albert PA-C: PSA [facility] 03-18-2024 History of Presen t illness Narrative Scan on 03/18/2024 11:39 AM by Fco Albert PA-C: PSA documented in this encounter [facility] 02-09-2024 Note HNO ID: [id number] Author: SHON VELASQUEZ LPN Service: ? Author Type: LICENSED NURSE Type: Progress Notes Filed: 02/09/2024 10:45 Note Text: Scan on 02/09/2024 9:33 AM by Fco Albert PA-C: Consultation - PT/OT/Speech [facility] 02-09-2024 History of Presen t illness Narrative Scan on 02/09/2024 9:33 AM by ProviderFco PA-C: Consultation - PT/OT/Speech documented in this encounter [facility] 01-22-2024 Note HNO ID: [id number] Author: SHON VELASQUEZ LPN Service: ? Author Type: LICENSED NURSE Type: Progress Notes Filed: 01/22/2024 13:17 Note Text: Scan on 01/22/2024 10:55 AM by Fco Albert PA-C: Consultation - Cardiology [facility] 01-22-2024 History of Presen t illness Narrative Scan on 01/22/2024 10:55 AM by Fco Albert PA-C: Consultation - Cardiology documented in this encounter [facility] 01-15-2024 Note HNO ID: [id number] Author: JAJA BOOTHE RN Service: ? Author Type: Registered Nurse Type: Progress Notes Filed: 01/15/2024 12:38 Note Text: ED Follow-Up Note Provider Action / FYI: Outreach was completed via telephone regarding the patient?s recent [facility] ED visit. Member denies any concerning symptoms or current medical or social needs. The patient was encouraged to contact their primary care provider (PCP) to schedule a follow up appointment and ask any questions related to their ongoing care within 7 days of the ED visit. Patient stated understanding ER outreach to pt for recent vs to [facility] on 01/07 Doing well.Denies sob,palpitations on CP Has f/u sched with Cardiology Dr Cantu from [facility] on 01/22/24 and has sched stress test for 01/21/24 Call completed by: RN Patient seen in ED: Out of Network ED Contact made with Patient: Yes The patient was identified by Name and Date of . Discussed Care with: patient Patient was seen in the Emergency Department (ED) Location: [place] Date: 01/08/24 Reason for ED Visit: Palpitations ED Intervention: EKG New Medications: Metoprolol 50mg q12 Medication Changes: yes Does patient understand medication changes: Yes Can patient afford medication changes: Yes Patient educated on worsening symptoms and when and where to seek additional care: Yes Patient Education Provided including treatment plan and new orders. Patient provided with appropriate counseling: Yes Based on video games mechanic, the following disposition is advised: No symptoms or symptoms present, not severe. Routed to: No Action Needed WENCESLAO Education Provided this Outreach: No Not interested in pcp follow up @ this time Jaja Boothe RN January 15, 2024 12:36 PM [facility] 01-15-2024 History of Presen t illness Narrative ED Follow-Up Note Provider Action / FYI: Outreach was completed via telephone regarding the patient s recent [facility] ED visit. Member denies any concerning symptoms or current medical or social needs. The patient was encouraged to contact their primary care provider (PCP) to schedule a follow up appointment and ask any questions related to their ongoing care within 7 days of the ED visit. Patient stated understanding ER outreach to pt for recent vs to [facility] on 01/07 Doing well.Denies sob,palpitations on CP Has f/u sched with Cardiology Dr Cantu from [facility] on 01/22/24 and has sched stress test for 01/21/24 Call completed by: RN Patient seen in ED: Out of Network ED Contact made with Patient: Yes The patient was identified by Name and Date of . Discussed Care with: patient Patient was seen in the Emergency Department (ED) Location: [place] Date: 01/08/24 Reason for ED Visit: Palpitations ED Intervention: EKG New Medications: Metoprolol 50mg q12 Medication Changes: yes Does patient understand medication changes: Yes Can patient afford medication changes: Yes Patient educated on worsening symptoms and when and where to seek additional care: Yes Patient Education Provided including treatment plan and new orders. Patient provided with appropriate counseling: Yes Based on video games mechanic, the following disposition is advised: No symptoms or symptoms present, not severe. Routed to: No Action Needed WENCESLAO Education Provided this Outreach: No Not interested in pcp follow up @ this time Jaja Boothe RN January 15, 2024 12:36 PM ED Follow-Up Note Provider Action / FYI: 1st attempt Outreach was attempted with this patient via telephone regarding the patient's recent [facility] ED visit. Patient did not answer at time of call. A voicemail message was left. Will re-attempt call. Call completed by: RN Patient seen in ED: Out of Network ED Contact made with Patient: No, left message. Will cb on 01/14/24 Jaja Boothe RN January 13, 2024 4:37 PM documented in this encounter [facility] 01-13-2024 Note HNO ID: [id number] Author: JAJA BOOTHE RN Service: ? Author Type: Registered Nurse Type: Progress Notes Filed: 01/15/2024 12:38 Note Text: ED Follow-Up Note Provider Action / FYI: 1st attempt Outreach was attempted with this patient via telephone regarding the patient's recent [facility] ED visit. Patient did not answer at time of call. A voicemail message was left. Will re-attempt call. Call completed by: RN Patient seen in ED: Out of Network ED Contact made with Patient: No, left message. Will cb on 01/14/24 Jaja Boothe RN January 13, 2024 4:37 PM [facility] 01-13-2024 Note HNO ID: [id number] Author: MING POSADA MA Service: ? Author Type: Veneer Patcher Type: Progress Notes Filed: 01/13/2024 15:53 Note Text: Scan on 01/08/2024 4:32 PM by ProviderFco PA-C: Consultation - Emergency Medicine Ming Posada MA [facility] 01-13-2024 History of Presen t illness Narrative Scan on 01/08/2024 4:32 PM by Fco Albert PA-C: Consultation - Emergency Medicine Ming Posada MA documented in this encounter [facility] 01-13-2024 Note Patient Outreach ([facility]) JERAMY WOOD ([id number]) 1960 M Date Time Provider Department 01/13/24 JAJA BOOTHE During your visit today, we recorded the following information about you: Jaja Boothe RN 01/15/2024 12:38 PM Signed ED Follow-Up Note Provider Action / FYI: 1st attempt Outreach was attempted with this patient via telephone regarding the patient's recent [facility] ED visit. Patient did not answer at time of call. A voicemail message was left. Will re-attempt call. Call completed by: RN Patient seen in ED: Out of Network ED Contact made with Patient: No, left message. Will cb on 01/14/24 Jaja Boothe RN January 13, 2024 4:37 PM Jaja Boothe RN 01/15/2024 12:38 PM Signed ED Follow-Up Note Provider Action / FYI: Outreach was completed via telephone regarding the patient?s recent OON ED visit. Member denies any concerning symptoms or current medical or social needs. The patient was encouraged to contact their primary care provider (PCP) to schedule a follow up appointment and ask any questions related to their ongoing care within 7 days of the ED visit. Patient stated understanding ER outreach to pt for recent vs to [facility] on 01/07 Doing well.Denies sob,palpitations on CP Has f/u sched with Cardiology Dr Cantu from [facility] on 01/22/24 and has sched stress test for 01/21/24 Call completed by: RN Patient seen in ED: Out of Network ED Contact made with Patient: Yes The patient was identified by Name and Date of . Discussed Care with: patient Patient was seen in the Emergency Department (ED) Location: [place] Date: 01/08/24 Reason for ED Visit: Palpitations ED Intervention: EKG New Medications: Metoprolol 50mg q12 Medication Changes: yes Does patient understand medication changes: Yes Can patient afford medication changes: Yes Patient educated on worsening symptoms and when and where to seek additional care: Yes Patient Education Provided including treatment plan and new orders. Patient provided with appropriate counseling: Yes Based on video games mechanic, the following disposition is advised: No symptoms or symptoms present, not severe. Routed to: No Action Needed WENCESLAO Education Provided this Outreach: No Not interested in pcp follow up @ this time Jaja Boothe RN January 15, 2024 12:36 PM Allergies As of Date: 01/13/2024 Noted Allergy Reaction LIPITOR (ATORVASTATIN) 10/29/2023 17 - Myalgia Date Reviewed: 01/05/2024 Reviewed by: Abdulaziz Smith MA - Fully Assessed Reason for Visit: ACM HARJEET RN [[id number]] Cmt: ER f/u Prescriptions as of 01/15/2024 - diclofenac (VOLTAREN ARTHRITIS PAIN) 1 % topical gel Apply 4 g to affected area four times daily. - aspirin 81 mg cap Take 81 mg by mouth once daily. - ticagrelor (BRILINTA) 90 mg tablet TWICE A DAY - metoprolol tartrate, short acting, (LOPRESSOR) 25 mg tablet Take 1 tablet by mouth twice daily. - COMPOUNDED PRESCRIPTION OTC sleep aid Diphenhydramine 50 mg Meds Comments as of 11/01/2014: Extra Strengthen PM Problem List As Of Date 01/13/2024 Noted Resolved Atrial fibrillation (HCC) [I48.91] 12/18/2005 Erectile dysfunction [N52.9] 04/04/2010 Inguinal hernia [K40.90] 04/04/2010 Trochanteric bursitis [M70.60] 04/04/2010 03/13/2016 Hypomagnesemia [E83.42] 07/24/2010 02/18/2018 Anemia [D64.9] 08/06/2010 02/08/2019 DVT (deep venous thrombosis) (HCC) [I82.409] 03/27/2011 03/10/2017 Abdominal wall hernia [K43.9] 02/26/2013 05/24/2019 Acquired abdominal wall defect [M95.8] 03/13/2016 Anxiety [F41.9] 03/10/2017 Acute embolism and thrombosis of deep vein of d*10/12/2010 02/08/2019 Family history of hypertension [Z82.49] 02/18/2018 Mixed hyperlipidemia [E78.2] 10/12/2010 Benign prostatic hyperplasia with urinary frequ*02/08/2019 Cardiomyopathy, nonischemic (HCC) [I42.8] 02/08/2019 05/24/2019 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] 05/24/2019 Plantar fasciitis [M72.2] 05/24/2019 Appendicitis [K37] 12/18/2019 12/29/2020 Well adult exam [Z00.00] 12/29/2020 Abdominal wall pain [R10.9] 01/01/2022 Medication management [Z79.899] 01/16/2022 BPH (benign prostatic hyperplasia) [N40.0] 05/21/2022 Prostate cancer (HCC) [C61] 05/31/2022 NSTEMI (non-ST elevated myocardial infarction) *03/28/2023 Coronary artery disease due to lipid rich plaqu*03/28/2023 Family history of colon cancer in mother [Z80.0]10/29/2023 Encounter Status:Closed by JAJA BOOTHE on 01/15/24 [facility] 01-05-2024 Note HNO ID: [id number] Author: KARTHIK WYLIE APRN.PROOF PLATE MAKER Service: ? Author Type: Nurse Practitioner Type: Progress Notes Filed: 01/05/2024 09:12 Note Text: Chief Complaint Patient presents with: Physical HPI Jeramy Wood is a 63 year old male who presents here today for Above Complaints.. Patient presents for annual physical for disability. Past medical history, appointments, medications, allergies reviewed. Previous Medical History PAST MEDICAL HISTORY 02/26/2013: Abdominal wall hernia 01/01/2022: Abdominal wall pain 03/13/2016: Acquired abdominal wall defect No date: Acute embolism and thrombosis of deep vein of distal lower extremity (HCC) 06/01/2010: Acute renal failure (HCC) Comment: SECONDARY TO SEPTIC SHOCK, RECOVERED ON OWN 03/10/2017: Anxiety 12/18/2005: Atrial fibrillation (HCC) 02/08/2019: Benign prostatic hyperplasia with urinary frequency Comment: Sees Kay Duran NP with Dr. Jama 05/21/2022: BPH (benign prostatic hyperplasia) Comment: Dr. Jama. S/p TURP No date: Cardiomyopathy in diseases classified elsewhere ([facility]) 02/08/2019: Cardiomyopathy, nonischemic (HCC) Comment: associated with atrial fibrillation--well controlled. Nuclear treadmill stress test 06/2018: EF >60% at 13 METS 03/28/2023: Coronary artery disease due to lipid rich plaque Comment: Seeing [facility]: Stent to LAD 03/202303/27/2011: DVT (deep venous thrombosis) ([facility]) Comment: RLE 04/04/2010: Erectile dysfunction 10/29/2023: Family history of colon cancer in mother No date: Family history of hypertension 05/24/2019: Granuloma annulare 04/04/2010: Inguinal hernia 10/12/2010: Mixed hyperlipidemia 03/25/2023: Non-STEMI (non-ST elevated myocardial infarction) ([facility]) 03/28/2023: NSTEMI (non-ST elevated myocardial infarction) ([facility]) Comment: 03/202305/24/2019: Plantar fasciitis 05/31/2022: Prostate cancer ([facility]) Comment: 05/2022: stage 1, Seeing Dr. Maher 06/01/2010: Septic shock(785.52) FOUND 06-01-10: Small bowel obstruction ([facility]) Comment: ? FROM LAPRASCOPUIC HERNIA SURGERY 12/29/2020: Well adult exam Comment: Last done: 01/01/2022 Previous Surgical History PAST SURGICAL HISTORY 05/30/2010: ARTL CATHJ/CANNULJ MNTR/TRANSFUSION SPX PRQ Comment: 03/2023: CC CORONARY STENT Comment: stent to LAD 07/03/2010: COLONOSCOPY 06/13/2010: EXPLORATION ABDOMINAL WALL Comment: evacuation abdominal hematoma 06/02/2010: EXPLORATORY LAPAROTOMY, CELIOTOMY-SP Comment: placement of abdominal vac-pack 06/02/2010: EXPLORATORY LAPAROTOMY, CELIOTOMY-SP Comment: bowel resection, abdominal wash out 06/08/2010: EXPLORATORY LAPAROTOMY, CELIOTOMY-SP Comment: small bowel anastomosis 05/28/2010: INGUINAL HERNIA REPAIR HX; Bilateral 07/19/2010: IR IVC FILTER PLACEMENT Comment: [employer] Eclipse Filter 2020: LAPAROSCOPY APPENDECTOMY 1980: NASAL SEPTUM REPOS W STABILIZATION 06/05/2010: PAST SURGICAL HISTORY OF Comment: reopening of recent laparotomy 06/11/2010: PAST SURGICAL HISTORY OF Comment: reopening of recent laparotomy, removal infected mesh 06/14/2010: PAST SURGICAL HISTORY OF Comment: reopening of recent laparotomy, abdominal wash out No date: PAST SURGICAL HISTORY OF; Left Comment: Heart catheterization 03/26/2023: PT ED HEART AND VASCULAR Comment: mid LCA 05/2022: TRANSURETHRAL ELEC-SURG PROSTATECTOM 07/02/2010: UPPER GI ENDOSCOPY DIAGNOSTIC Family History FAMILY HISTORY Problem Relation Age of Onset Colon Cancer Mother 70 Coronary Artery Disease Mother other (Heart Disease) Mother other (amyotropic lateral sclerosis) Father Multiple Sclerosis Brother Multiple Sclerosis Sister Diabetes Maternal Grandfather Patient Allergies ALLERGIES Allergen Reactions Lipitor [Atorvastat* Myalgia Current Medications Current Outpatient Medications on File Prior to Visit Medication Sig diclofenac (VOLTAREN ARTHRITIS PAIN) 1 % topical gel Apply 4 g to affected area four times daily. aspirin 81 mg cap Take 81 mg by mouth once daily. ticagrelor (BRILINTA) 90 mg tablet TWICE A DAY metoprolol tartrate, short acting, (LOPRESSOR) 25 mg tablet Take 1 tablet by mouth twice daily. COMPOUNDED PRESCRIPTION OTC sleep aid Diphenhydramine 50 mg No current facility-administered medications on file prior to visit. Social History Social History Tobacco Use Smoking status: Never Smokeless tobacco: Never Vaping Use Vaping status: Never Used Substance Use Topics Alcohol use: Not Currently Comment: SOCIAL BEER Drug use: No Review of Symptoms REVIEW OF SYSTEMS SEE HPI EXAM: BP 125/85 Pulse (!) 59 Resp 14 Ht 182.9 cm (6') Wt 83 kg (183 lb) BMI 24.82 kg/m? General Appearance: Well appearing, alert, in no acute distress, well-hydrated, well nourished.. Skin: Positives: Ecchymosis: face. Lungs: Lungs clear to auscultation. No wheezing, rhonchi, rales.. Heart: RRR without murmur, gallop, or rubs. No ectopy. Abdomen: Normal ab (more content not included)... [facility] 01-05-2024 History of Presen t illness Narrative Chief Complaint Patient presents with: Physical HPI Jeramy Wood is a 63 year old male who presents here today for Above Complaints.. Patient presents for annual physical for disability. Past medical history, appointments, medications, allergies reviewed. Previous Medical History PAST MEDICAL HISTORY 02/26/2013: Abdominal wall hernia 01/01/2022: Abdominal wall pain 03/13/2016: Acquired abdominal wall defect No date: Acute embolism and thrombosis of deep vein of distal lower extremity ([facility]) 06/01/2010: Acute renal failure ([facility]) Comment: SECONDARY TO SEPTIC SHOCK, RECOVERED ON OWN 03/10/2017: Anxiety 12/18/2005: Atrial fibrillation ([facility]) 02/08/2019: Benign prostatic hyperplasia with urinary frequency Comment: Sees Kay Duran NP with Dr. Jama 05/21/2022: BPH (benign prostatic hyperplasia) Comment: Dr. Jama. S/p TURP No date: Cardiomyopathy in diseases classified elsewhere ([facility]) 02/08/2019: Cardiomyopathy, nonischemic ([facility]) Comment: associated with atrial fibrillation--well controlled. 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 Maher 06/01/2010: Septic shock(785.52) FOUND 06-01-10: Small bowel obstruction ([facility]) Comment: ? FROM LAPRASCOPUIC HERNIA SURGERY 12/29/2020: Well adult exam Comment: Last done: 01/01/2022 Previous Surgical History PAST SURGICAL HISTORY 05/30/2010: ARTL CATHJ/CANNULJ MNTR/TRANSFUSION SPX PRQ Comment: 03/2023: CC CORONARY STENT Comment: stent to LAD 07/03/2010: COLONOSCOPY 06/13/2010: EXPLORATION ABDOMINAL WALL Comment: evacuation abdominal hematoma 06/02/2010: EXPLORATORY LAPAROTOMY, CELIOTOMY-SP Comment: placement of abdominal vac-pack 06/02/2010: EXPLORATORY LAPAROTOMY, CELIOTOMY-SP Comment: bowel resection, abdominal wash out 06/08/2010: EXPLORATORY LAPAROTOMY, CELIOTOMY-SP Comment: small bowel anastomosis 05/28/2010: INGUINAL HERNIA REPAIR HX; Bilateral 07/19/2010: IR IVC FILTER PLACEMENT Comment: [employer] Eclipse Filter 2020: LAPAROSCOPY APPENDECTOMY 1980: NASAL SEPTUM REPOS W STABILIZATION 06/05/2010: PAST SURGICAL HISTORY OF Comment: reopening of recent laparotomy 06/11/2010: PAST SURGICAL HISTORY OF Comment: reopening of recent laparotomy, removal infected mesh 06/14/2010: PAST SURGICAL HISTORY OF Comment: reopening of recent laparotomy, abdominal wash out No date: PAST SURGICAL HISTORY OF; Left Comment: Heart catheterization 03/26/2023: PT ED HEART AND VASCULAR Comment: mid LCA 05/2022: TRANSURETHRAL ELEC-SURG PROSTATECTOM 07/02/2010: UPPER GI ENDOSCOPY DIAGNOSTIC Family History FAMILY HISTORY Problem Relation Age of Onset Colon Cancer Mother 70 Coronary Artery Disease Mother other (Heart Disease) Mother other (amyotropic lateral sclerosis) Father Multiple Sclerosis Brother Multiple Sclerosis Sister Diabetes Maternal Grandfather Patient Allergies ALLERGIES Allergen Reactions Lipitor [Atorvastat* Myalgia Current Medications Current Outpatient Medications on File Prior to Visit Medication Sig diclofenac (VOLTAREN ARTHRITIS PAIN) 1 % topical gel Apply 4 g to affected area four times daily. aspirin 81 mg cap Take 81 mg by mouth once daily. ticagrelor (BRILINTA) 90 mg tablet TWICE A DAY metoprolol tartrate, short acting, (LOPRESSOR) 25 mg tablet Take 1 tablet by mouth twice daily. COMPOUNDED PRESCRIPTION OTC sleep aid Diphenhydramine 50 mg No current facility-administered medications on file prior to visit. Social History Social History Tobacco Use Smoking status: Never Smokeless tobacco: Never Vaping Use Vaping status: Never Used Substance Use Topics Alcohol use: Not Currently Comment: SOCIAL BEER Drug use: No Review of Symptoms REVIEW OF SYSTEMS SEE HPI EXAM: BP 125/85 Pulse (!) 59 Resp 14 Ht 182.9 cm (6') Wt 83 kg (183 lb) BMI 24.82 kg/m General Appearance: Well appearing, alert, in no acute distress, well-hydrated, well nourished.. Skin: Positives: Ecchymosis: face. Lungs: Lungs clear to auscultation. No wheezing, rhonchi, rales.. Heart: RRR without murmur, gallop, or rubs. No ectopy. Abdomen: Normal abdominal exam, Abdomen soft, non-tender. Bowel sounds normal. No masses, organomegaly. Peripheral Pulses: Normal. Health Maintenance List Depression Screening Never done Shingrix Vaccine(1 of 2) Never done RSV Vaccine(1 - 1-dose 60+ series) Never done Colorectal Cancer Screening due on 01/12/2022 Covid-19 Vaccine(5 - season) due on 01/10/2023 LDL Cholesterol due on 01/02/2024 Influenza Vaccine(1) due on 01/11/2024 Annual PCP Team Chronic Disease Visit due on 10/28/2024 DTaP,Tdap,Td Vaccine(3 - Td or Tdap) due on 10/03/2025 Diabetes Screening due on 01/01/2026 Prostate Cancer Screening Discussion due on 09/28/2027 Lipid Screening due on 01/02/2028 Hepatitis C Screening Completed HPV Vaccine Aged Out HIV Screening Discontinued Data reviewed Labs reviewed from [facility]. WNL ASSESSMENT/PLAN: 1. Non-STEMI (non-ST elevated myocardial infarction) (HCC) - ICD9: 410.70, ICD10: I21.4 (primary diagnosis) -Follows with Cardiology 2. Benign prostatic hyperplasia with urinary retention - ICD9: 600.01, 788.20, ICD10: N40.1, R33.8 -Follows with urology 3. Paroxysmal atrial fibrillation (HCC) - ICD9: 427.31, ICD10: I48.0 -Follows with Cardiology. Currently has a holter monitor 4. Mixed hyperlipidemia - ICD9: 272.2, ICD10: E78.2 - Controlled - Continue current medications - Counseled on healthy diet and regular exercise - Discussed need for and benefit of weight loss. BMI 24.82 kg/(m^2) 5. S/P drug eluting coronary stent placement - ICD9: V45.82, ICD10: Z95.5 -Follows with Cardiology 6. Prostate cancer (HCC) - ICD9: 185, ICD10: C61 -Follows with urology 7. Abdominal wall pain - ICD9: 789.00, ICD10: R10.9 - Chronic following double hernia surgery. Stable, no worsening symptoms 8. Acquired abdominal wall defect - ICD9: 738.8, ICD10: M95.8 - Chronic following double hernia surgery. Stable, no worsening symptoms Karthik Wylie APRN.PROOF PLATE MAKER documented in this encounter [facility] 01-01-2024 Note HNO ID: [id number] Author: SHON VELASQUEZ LPN Service: ? Author Type: LICENSED NURSE Type: Progress Notes Filed: 01/01/2024 12:57 Note Text: Scan on 01/01/2024 12:41 PM by Fco Albert PA-C: Chemistry Scan on 01/01/2024 11:39 AM by Fco Albert PA-C: Hematology [facility] 01-01-2024 History of Presen t illness Narrative Scan on 01/01/2024 12:41 PM by Fco Albert PA-C: Chemistry Scan on 01/01/2024 11:39 AM by Fco Albert PA-C: Hematology documented in this encounter [facility] 12-24-2023 Note HNO ID: [id number] Author: SHON VELASQUEZ LPN Service: ? Author Type: LICENSED NURSE Type: Progress Notes Filed: 12/24/2023 13:52 Note Text: Scan on 12/24/2023 1:23 PM by Fco Albert PA-C: Consultation - PT/OT/Speech [facility] 12-24-2023 History of Presen t illness Narrative Scan on 12/24/2023 1:23 PM by Fco Albert PA-C: Consultation - PT/OT/Speech documented in this encounter [facility] 11-04-2023 Note HNO ID: [id number] Author: CAT VERA MA Service: ? Author Type: Veneer Patcher Type: Progress Notes Filed: 11/04/2023 10:39 Note Text: POPULATION HEALTH NAVIGATION OUTREACH Action/FYI Patient outreach for [place] Medication Adherence Medication(s) Reviewed: ATORVASTATIN 80 MG TABLET Next fill date: 09/19/2023 Outcome: From Care Everywhere update: Atorvastatin is not on patient's EPIC med list but may be part of the reconcile meds not completed. Notes are difficult to figure out but it must be prescribed by and monitored by outside analytics specialist. No outreach to patient needed. Reason for Outreach Med Adherence Patient Contacted: Unable or unnecessary to reach patient: Prescribed by outside provider. Navigation Signature: Cat Vera MA November 04, 2023 9:49 AM [facility] 11-04-2023 History of Presen t illness Narrative Images from the original note were not included. POPULATION HEALTH NAVIGATION OUTREACH Action/FYI Patient outreach for [place] Medication Adherence Medication(s) Reviewed: ATORVASTATIN 80 MG TABLET Next fill date: 09/19/2023 Outcome: From Care Everywhere update: Atorvastatin is not on patient's EPIC med list but may be part of the reconcile meds not completed. Notes are difficult to figure out but it must be prescribed by and monitored by outside analytics specialist. No outreach to patient needed. Reason for Outreach Med Adherence Patient Contacted: Unable or unnecessary to reach patient: Prescribed by outside provider. Navigation Signature: Cat Vera MA November 04, 2023 9:49 AM documented in this encounter [facility] 11-04-2023 Note Patient Outreach (NE TNAV) JERAMY WOOD ([id number]) 1960 M Date Time Provider Department 11/04/23 CAT VERA During your visit today, we recorded the following information about you: Cat Vera MA 11/04/2023 10:39 AM Signed POPULATION HEALTH NAVIGATION OUTREACH Action/FYI Patient outreach for [place] Medication Adherence Medication(s) Reviewed: ATORVASTATIN 80 MG TABLET Next fill date: 09/19/2023 Outcome: From Care Everywhere update: Atorvastatin is not on patient's EPIC med list but may be part of the reconcile meds not completed. Notes are difficult to figure out but it must be prescribed by and monitored by outside analytics specialist. No outreach to patient needed. Reason for Outreach Med Adherence Patient Contacted: Unable or unnecessary to reach patient: Prescribed by outside provider. Navigation Signature: Cat Vera MA November 04, 2023 9:49 AM Allergies As of Date: 11/04/2023 Noted Allergy Reaction LIPITOR (ATORVASTATIN) 10/29/2023 17 - Myalgia Date Reviewed: 10/29/2023 Reviewed by: Shan Christianson MD - Fully Assessed Reason for Visit: Population Health Navigation Outreach [3910] Cmt: Titi Med Adherence Prescriptions as of 11/04/2023 - diclofenac (VOLTAREN ARTHRITIS PAIN) 1 % topical gel Apply 4 g to affected area four times daily. - aspirin 81 mg cap Take 81 mg by mouth once daily. - ticagrelor (BRILINTA) 90 mg tablet TWICE A DAY - metoprolol tartrate, short acting, (LOPRESSOR) 25 mg tablet Take 1 tablet by mouth twice daily. - COMPOUNDED PRESCRIPTION OTC sleep aid Diphenhydramine 50 mg Meds Comments as of 11/01/2014: Extra Strengthen PM Problem List As Of Date 11/04/2023 Noted Resolved Atrial fibrillation (HCC) [I48.91] 12/18/2005 Erectile dysfunction [N52.9] 04/04/2010 Inguinal hernia [K40.90] 04/04/2010 Trochanteric bursitis [M70.60] 04/04/2010 03/13/2016 Hypomagnesemia [E83.42] 07/24/2010 02/18/2018 Anemia [D64.9] 08/06/2010 02/08/2019 DVT (deep venous thrombosis) (HCC) [I82.409] 03/27/2011 03/10/2017 Abdominal wall hernia [K43.9] 02/26/2013 05/24/2019 Acquired abdominal wall defect [M95.8] 03/13/2016 Anxiety [F41.9] 03/10/2017 Acute embolism and thrombosis of deep vein of d*10/12/2010 02/08/2019 Family history of hypertension [Z82.49] 02/18/2018 Mixed hyperlipidemia [E78.2] 10/12/2010 Benign prostatic hyperplasia with urinary frequ*02/08/2019 Cardiomyopathy, nonischemic (HCC) [I42.8] 02/08/2019 05/24/2019 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] 05/24/2019 Plantar fasciitis [M72.2] 05/24/2019 Appendicitis [K37] 12/18/2019 12/29/2020 Well adult exam [Z00.00] 12/29/2020 Abdominal wall pain [R10.9] 01/01/2022 Medication management [Z79.899] 01/16/2022 BPH (benign prostatic hyperplasia) [N40.0] 05/21/2022 Prostate cancer (HCC) [C61] 05/31/2022 NSTEMI (non-ST elevated myocardial infarction) *03/28/2023 Coronary artery disease due to lipid rich plaqu*03/28/2023 Family history of colon cancer in mother [Z80.0]10/29/2023 Encounter Status:Closed by CAT VERA on 11/04/23 [facility] 10-29-2023 History of Presen t illness Narrative Chief Complaint Patient presents with: Pain HPI Jeramy Wood is a 63 year old male who presents here today for discuss colonoscopy. Patient with hx a.fib, hyperlipidemia, chronic abdominal wall pain/defect leading to fci disability, Prostate cancer, BPH, Non Stemi/stent placement and those as below. Patient has been experiencing some rectal pain/discomfort for over 6 months with BM's. He has felt a mas come out from his rectum and sometimes getting blood. Sometimes will burn No Nausea/Vomiting/Diarrhea. No hx of Hemorrhoids. Weight has erendira stable. Denies any abdominal pain. Mother had Colon Cancer. Was doing cardiac rehab an did lose some weight with this. Patient is scheduled 01/05/2024 for physical. Patient sees Urology Dr Maher last visit 09/2023 Patient sees [facility] last visit 07/2023 Past medical history, appointments, medications, allergies reviewed. Previous Medical History PAST MEDICAL HISTORY Diagnosis Date Abdominal wall hernia 02/26/2013 Abdominal wall pain 01/01/2022 Acquired abdominal wall defect 03/13/2016 Acute embolism and thrombosis of deep vein of distal lower extremity (HCC) Acute renal failure (HCC) 06/01/2010 SECONDARY TO SEPTIC SHOCK, RECOVERED ON OWN Anxiety 03/10/2017 Atrial fibrillation (HCC) 12/18/2005 Benign prostatic hyperplasia with urinary frequency 02/08/2019 Sees Kay Duran NP with Dr. Jama BPH (benign prostatic hyperplasia) 05/21/2022 Dr. Jama. S/p TURP Cardiomyopathy in diseases classified elsewhere (HCC) Cardiomyopathy, nonischemic (HCC) 02/08/2019 associated with atrial fibrillation--well controlled. 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 Maher Septic shock(785.52) 06/01/2010 Small bowel obstruction ([facility]) FOUND 06-01- ? FROM LAPRASCOPUIC HERNIA SURGERY Well adult exam 12/29/2020 Last done: 01/01/2022 Previous Surgical History PAST SURGICAL HISTORY Procedure Laterality Date ARTL CATHJ/CANNULJ MNTR/TRANSFUSION SPX PRQ 05/30/2010 CC CORONARY STENT 03/2023 stent to LAD COLONOSCOPY 07/03/2010 EXPLORATION ABDOMINAL WALL 06/13/2010 evacuation abdominal hematoma EXPLORATORY LAPAROTOMY, CELIOTOMY-SP 06/02/2010 placement of abdominal vac-pack EXPLORATORY LAPAROTOMY, CELIOTOMY-SP 06/02/2010 bowel resection, abdominal wash out EXPLORATORY LAPAROTOMY, CELIOTOMY-SP 06/08/2010 small bowel anastomosis INGUINAL HERNIA REPAIR HX Bilateral 05/28/2010 IR IVC FILTER PLACEMENT 07/19/2010 Bard Eclipse Filter LAPAROSCOPY APPENDECTOMY 2019 NASAL SEPTUM REPOS W STABILIZATION 1979 PAST SURGICAL HISTORY OF 06/05/2010 reopening of recent laparotomy PAST SURGICAL HISTORY OF 06/11/2010 reopening of recent laparotomy, removal infected mesh PAST SURGICAL HISTORY OF 06/14/2010 reopening of recent laparotomy, abdominal wash out PAST SURGICAL HISTORY OF Left Heart catheterization PT ED HEART AND VASCULAR 03/26/2023 mid [facility] TRANSURETHRAL ELEC-SURG PROSTATECTOM 05/2022 UPPER GI ENDOSCOPY DIAGNOSTIC 07/02/2010 Family History FAMILY HISTORY Problem Relation Age of Onset Colon Cancer Mother 70 Coronary Artery Disease Mother other (Heart Disease) Mother other (amyotropic lateral sclerosis) Father Multiple Sclerosis Brother Multiple Sclerosis Sister Diabetes Maternal Grandfather Patient Allergies ALLERGIES Allergen Reactions No Known Drug Aller* Other: See Comments Current Medications Current Outpatient Medications on File Prior to Visit Medication Sig diclofenac (VOLTAREN ARTHRITIS PAIN) 1 % topical gel Apply 4 g to affected area four times daily. atorvastatin (LIPITOR) 80 mg tablet Take 0.5 tablets by mouth once daily. Per [facility] (80 mg caused muscle aches) (Patient not taking: Reported on 2023) aspirin 81 mg cap Take 81 mg by mouth once daily. ticagrelor (BRILINTA) 90 mg tablet TWICE A DAY Lactobacillus acidophilus (PROBIOTIC ORAL) Take by mouth. (Patient not taking: Reported on 2023) Lactobacillus acidophilus (FLORAJEN ACIDOPHILUS ORAL) Take by mouth. (Patient not taking: Reported on 2023) metoprolol tartrate, short acting, (LOPRESSOR) 25 mg tablet Take 1 tablet by mouth twice daily. COMPOUNDED PRESCRIPTION OTC sleep aid Diphenhydramine 50 mg No current facility-administered medications on file prior to visit. Social History Social History Tobacco Use Smoking status: Never Smokeless tobacco: Never Vaping Use Vaping Use: Never used Substance Use Topics Alcohol use: Not Currently Comment: SOCIAL BEER Drug use: No Review of Symptoms REVIEW OF SYSTEMS See HPI EXAM: BP 120/96 (BP Site: Right Arm, BP Position: Sitting, BP Cuff Size: Regular Adult) Pulse 68 Temp 36.7 C (98 F) (Tympanic) Resp 16 Wt 83 kg (183 lb) BMI 25.06 kg/m BP 108/68 Pulse 68 Temp 36.7 C (98 F) (Tympanic) Resp 16 Wt 83 kg (183 lb) BMI 25.06 kg/m Last 5 Encounter Wt Readings: Date: Wt: 10/29/2023 83 kg (183 lb) 04/14/2023 89.3 kg (196 lb 12.8 oz) 01/02/2023 86.6 kg (191 lb) 06/04/2022 84.8 kg (187 lb) 05/31/2022 88.5 kg (195 lb) General Appearance: Well appearing, alert, in no acute distress, well-hydrated, well nourished.. Abdomen: Normal abdominal exam, Abdomen soft, non-tender. Bowel sounds normal. No masses, organomegaly. Rectal: Normal exam. Has a non-inflamed hemorrhoid at the 6 o'clock region at the OS. Health Maintenance List Shingrix Vaccine(1 of 2) Never done RSV Vaccine(1 - 1-dose 60+ series) Never done Colorectal Cancer Screening due on 01/12/2022 Covid-19 Vaccine(2022- season) due on 01/10/2023 Behavioral Health Screening Never done LDL Cholesterol due on 01/02/2024 Annual PCP Team Chronic Disease Visit due on 08/31/2024 DTaP,Tdap,Td Vaccine(3 - Td or Tdap) due on 10/03/2025 Diabetes Screening due on 01/01/2026 Prostate Cancer Screening Discussion due on 09/28/2027 Lipid Screening due on 01/02/2028 Influenza Vaccine Completed Hepatitis C Screening Completed HPV Vaccine Aged Out HIV Screening Discontinued Data reviewed A/P ASSESSMENT/PLAN: 1. Family history of colon cancer in mother - ICD9: V16.0, ICD10: Z80.0 (primary diagnosis) - CONSULT TO GENERAL SURGERY 2. Hematochezia - ICD9: 578.1, ICD10: K92.1 - CONSULT TO GENERAL SURGERY 3. External hemorrhoid - ICD9: 455.3, ICD10: K64.4 - suspect this is the source of his bleeding and sensation. However patient does need a colonoscopy. F/u as need and at in December. Shan Christianson MD documented in this encounter [facility] 10-29-2023 Note HNO ID: [id number] Author: SHAN CHRISTIANSON MD Service: ? Author Type: Physician Type: Progress Notes Filed: 10/29/2023 12:48 Note Text: Chief Complaint Patient presents with: Pain HPI Jeramy Wood is a 63 year old male who presents here today for discuss colonoscopy. Patient with hx a.fib, hyperlipidemia, chronic abdominal wall pain/defect leading to fci disability, Prostate cancer, BPH, Non Stemi/stent placement and those as below. Patient has been experiencing some rectal pain/discomfort for over 6 months with BM's. He has felt a mas come out from his rectum and sometimes getting blood. Sometimes will burn No Nausea/Vomiting/Diarrhea. No hx of Hemorrhoids. Weight has erendira stable. Denies any abdominal pain. Mother had Colon Cancer. Was doing cardiac rehab an did lose some weight with this. Patient is scheduled 01/05/2024 for physical. Patient sees Urology Dr Maher last visit 09/2023 Patient sees [facility] last visit 07/2023 Past medical history, appointments, medications, allergies reviewed. Previous Medical History PAST MEDICAL HISTORY Diagnosis Date Abdominal wall hernia 02/26/2013 Abdominal wall pain 01/01/2022 Acquired abdominal wall defect 03/13/2016 Acute embolism and thrombosis of deep vein of distal lower extremity ([facility]) Acute renal failure ([facility]) 06/01/2010 SECONDARY TO SEPTIC SHOCK, RECOVERED ON OWN Anxiety 03/10/2017 Atrial fibrillation ([facility]) 12/18/2005 Benign prostatic hyperplasia with urinary frequency 02/08/2019 Sees Kay Duran NP with Dr. Jama BPH (benign prostatic hyperplasia) 05/21/2022 Dr. Jama. S/p TURP Cardiomyopathy in diseases classified elsewhere ([facility]) Cardiomyopathy, nonischemic ([facility]) 02/08/2019 associated with atrial fibrillation--well controlled. Nuclear treadmill stress test 06/2018: EF >60% at 13 METS Coronary artery disease due to lipid rich plaque 03/28/2023 Seeing [facility]: Stent to LAD 03/2023 DVT (deep venous thrombosis) ([facility]) 03/27/2011 RLE Erectile dysfunction 04/04/2010 Family history of hypertension Granuloma annulare 05/24/2019 Inguinal hernia 04/04/2010 Mixed hyperlipidemia 10/12/2010 Non-STEMI (non-ST elevated myocardial infarction) ([facility]) 03/25/2023 NSTEMI (non-ST elevated myocardial infarction) ([facility]) 03/28/202303/2023 Plantar fasciitis 05/24/2019 Prostate cancer (HCC) 05/31/202205/2022: stage 1, Seeing Dr. Maher Septic shock(785.52) 06/01/2010 Small bowel obstruction (HCC) FOUND 06-01-10 ? FROM LAPRASCOPUIC HERNIA SURGERY Well adult exam 12/29/2020 Last done: 01/01/2022 Previous Surgical History PAST SURGICAL HISTORY Procedure Laterality Date ARTL CATHJ/CANNULJ MNTR/TRANSFUSION SPX PRQ 05/30/2010 CC CORONARY STENT 03/2023 stent to LAD COLONOSCOPY 07/03/2010 EXPLORATION ABDOMINAL WALL 06/13/2010 evacuation abdominal hematoma EXPLORATORY LAPAROTOMY, CELIOTOMY-SP 06/02/2010 placement of abdominal vac-pack EXPLORATORY LAPAROTOMY, CELIOTOMY-SP 06/02/2010 bowel resection, abdominal wash out EXPLORATORY LAPAROTOMY, CELIOTOMY-SP 06/08/2010 small bowel anastomosis INGUINAL HERNIA REPAIR HX Bilateral 05/28/2010 IR IVC FILTER PLACEMENT 07/19/2010 Bard Eclipse Filter LAPAROSCOPY APPENDECTOMY 2019 NASAL SEPTUM REPOS W STABILIZATION 1980 PAST SURGICAL HISTORY OF 06/05/2010 reopening of recent laparotomy PAST SURGICAL HISTORY OF 06/11/2010 reopening of recent laparotomy, removal infected mesh PAST SURGICAL HISTORY OF 06/14/2010 reopening of recent laparotomy, abdominal wash out PAST SURGICAL HISTORY OF Left Heart catheterization PT ED HEART AND VASCULAR 03/26/2023 mid [facility] TRANSURETHRAL ELEC-SURG PROSTATECTOM 05/2022 UPPER GI ENDOSCOPY DIAGNOSTIC 07/02/2010 Family History FAMILY HISTORY Problem Relation Age of Onset Colon Cancer Mother 70 Coronary Artery Disease Mother other (Heart Disease) Mother other (amyotropic lateral sclerosis) Father Multiple Sclerosis Brother Multiple Sclerosis Sister Diabetes Maternal Grandfather Patient Allergies ALLERGIES Allergen Reactions No Known Drug Aller* Other: See Comments Current Medications Current Outpatient Medications on File Prior to Visit Medication Sig diclofenac (VOLTAREN ARTHRITIS PAIN) 1 % topical gel Apply 4 g to affected area four times daily. atorvastatin (LIPITOR) 80 mg tablet Take 0.5 tablets by mouth once daily. Per [facility] (80 mg caused muscle aches) (Patient not taking: Reported on 2023) aspirin 81 mg cap Take 81 mg by mouth once daily. ticagrelor (BRILINTA) 90 mg tablet TWICE A DAY Lactobacillus acidophilus (PROBIOTIC ORAL) Take by mouth. (Patient not taking: Reported on 2023) Lactobacillus acidophilus (FLORAJEN ACIDOPHILUS ORAL) Take by mouth. (Patient not taking: Reported on 2023) metoprolol tartrate, short acting, (LOPRESSOR) 25 mg tablet Take 1 tablet by mouth twice daily. COMPOUNDED PRESCRIPTION OTC sleep aid Di (more content not included)... [facility] 10-22-2023 Note HNO ID: [id number] Author: CORRINE FARIA MA Service: ? Author Type: Veneer Patcher Type: Progress Notes Filed: 10/22/2023 11:14 Note Text: POPULATION HEALTH NAVIGATION OUTREACH Action/FYI Patient already scheduled for disability physical. Spoke to patient about scheduling colorectal cancer screening. Patient wanted an appointment with PCP to discuss this sooner rather than later. Appointment scheduled. Reason for Outreach Care Gap/HCC or Scheduling Wellness Visits Care Gaps due: Follow-up Appointment Colorectal Cancer Screening Patient Contacted: Spoke to patient/parent/or legal guardian Patient identified by name and : Yes Care Gap/HCC/Scheduling Wellness actions taken: Patient scheduled/pended labs: Follow-up Appointment Colorectal Cancer Screening HCC related Navigation Signature: Corrine Faria MA October 22, 2023 11:13 AM [facility] 10-22-2023 History of Presen t illness Narrative POPULATION HEALTH NAVIGATION OUTREACH Action/FYI Patient already scheduled for disability physical. Spoke to patient about scheduling colorectal cancer screening. Patient wanted an appointment with PCP to discuss this sooner rather than later. Appointment scheduled. Reason for Outreach Care Gap/HCC or Scheduling Wellness Visits Care Gaps due: Follow-up Appointment Colorectal Cancer Screening Patient Contacted: Spoke to patient/parent/or legal guardian Patient identified by name and : Yes Care Gap/HCC/Scheduling Wellness actions taken: Patient scheduled/pended labs: Follow-up Appointment Colorectal Cancer Screening HCC related Navigation Signature: Corrine Faria MA October 22, 2023 11:13 AM documented in this encounter [facility] 10-22-2023 Note Patient Outreach (VIDYA PATEL) JERAMY WOOD ([id number]) 1960 M Date Time Provider Department 10/22/23 CORRINE FARIA During your visit today, we recorded the following information about you: Corrine Faria MA 10/22/2023 11:14 AM Signed POPULATION HEALTH NAVIGATION OUTREACH Action/FYI Patient already scheduled for disability physical. Spoke to patient about scheduling colorectal cancer screening. Patient wanted an appointment with PCP to discuss this sooner rather than later. Appointment scheduled. Reason for Outreach Care Gap/HCC or Scheduling Wellness Visits Care Gaps due: Follow-up Appointment Colorectal Cancer Screening Patient Contacted: Spoke to patient/parent/or legal guardian Patient identified by name and : Yes Care Gap/HCC/Scheduling Wellness actions taken: Patient scheduled/pended labs: Follow-up Appointment Colorectal Cancer Screening HCC related Navigation Signature: Corrine Faria MA October 22, 2023 11:13 AM Allergies As of Date: 10/22/2023 Noted Allergy Reaction NO KNOWN DRUG ALLERGIES 11/21/2005 14 - Other: See Comments Date Reviewed: 2023 Reviewed by: Melita Garcia LPN - Fully Assessed Reason for Visit: Population Health Navigation Outreach [3910] Cmt: Titi AWV/HCC and care gaps Prescriptions as of 10/22/2023 - diclofenac (VOLTAREN ARTHRITIS PAIN) 1 % topical gel Apply 4 g to affected area four times daily. - atorvastatin (LIPITOR) 80 mg tablet Take 0.5 tablets by mouth once daily. Per [facility] (80 mg caused muscle aches) - aspirin 81 mg cap Take 81 mg by mouth once daily. - ticagrelor (BRILINTA) 90 mg tablet TWICE A DAY - Lactobacillus acidophilus (PROBIOTIC ORAL) Take by mouth. - Lactobacillus acidophilus (FLORAJEN ACIDOPHILUS ORAL) Take by mouth. - metoprolol tartrate, short acting, (LOPRESSOR) 25 mg tablet Take 1 tablet by mouth twice daily. - COMPOUNDED PRESCRIPTION OTC sleep aid Diphenhydramine 50 mg Meds Comments as of 11/01/2014: Extra Strengthen PM Problem List As Of Date 10/22/2023 Noted Resolved Atrial fibrillation (HCC) [I48.91] 12/18/2005 Erectile dysfunction [N52.9] 04/04/2010 Inguinal hernia [K40.90] 04/04/2010 Trochanteric bursitis [M70.60] 04/04/2010 03/13/2016 Hypomagnesemia [E83.42] 07/24/2010 02/18/2018 Anemia [D64.9] 08/06/2010 02/08/2019 DVT (deep venous thrombosis) (HCC) [I82.409] 03/27/2011 03/10/2017 Abdominal wall hernia [K43.9] 02/26/2013 05/24/2019 Acquired abdominal wall defect [M95.8] 03/13/2016 Anxiety [F41.9] 03/10/2017 Acute embolism and thrombosis of deep vein of d*10/12/2010 02/08/2019 Family history of hypertension [Z82.49] 02/18/2018 Mixed hyperlipidemia [E78.2] 10/12/2010 Benign prostatic hyperplasia with urinary frequ*02/08/2019 Cardiomyopathy, nonischemic (HCC) [I42.8] 02/08/2019 05/24/2019 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] 05/24/2019 Plantar fasciitis [M72.2] 05/24/2019 Appendicitis [K37] 12/18/2019 12/29/2020 Well adult exam [Z00.00] 12/29/2020 Abdominal wall pain [R10.9] 01/01/2022 Medication management [Z79.899] 01/16/2022 BPH (benign prostatic hyperplasia) [N40.0] 05/21/2022 Prostate cancer (HCC) [C61] 05/31/2022 NSTEMI (non-ST elevated myocardial infarction) *03/28/2023 Coronary artery disease due to lipid rich plaqu*03/28/2023 Encounter Status:Closed by CORRINE FARIA on 10/22/23 [facility] 10-08-2023 Telephone encounter Note Patient stopped into office today request a refill of medication below for knee pain. Requesting call back when medication sent. Patient has been identified by name and date of : Yes Patient phones for refill(s): Requested Prescriptions Pending Prescriptions Disp Refills diclofenac (VOLTAREN ARTHRITIS PAIN) 1 % topical gel 50 g 0 Sig: Apply 4 g to affected area four times daily. Date of last office visit in primary care: 2023 Date of next office visit in primary care: 01/05/2024 Please advise. Thank you. LAISHA Stewart. [facility] 10-08-2023 Miscellaneous Notes Patient stopped into office today request a refill of medication below for knee pain. Requesting call back when medication sent. Patient has been identified by name and date of : Yes Patient phones for refill(s): Requested Prescriptions Pending Prescriptions Disp Refills diclofenac (VOLTAREN ARTHRITIS PAIN) 1 % topical gel 50 g 0 Sig: Apply 4 g to affected area four times daily. Date of last office visit in primary care: 2023 Date of next office visit in primary care: 01/05/2024 Please advise. Thank you. LAISHA Stewart. documented in this encounter [facility] 09-23-2023 Note HNO ID: [id number] Author: MELITA GARCIA LPN Service: ? Author Type: LICENSED NURSE Type: Progress Notes Filed: 09/23/2023 10:49 Note Text: Scan on 09/22/2023 11:21 AM by ProviderFco PA-C: Consultation - Melita Garcia LPN [facility] 09-23-2023 History of Presen t illness Narrative Scan on 09/22/2023 11:21 AM by Fco Albert PA-C: Consultation - Melita Garcia LPN documented in this encounter [facility] 09-19-2023 Note HNO ID: [id number] Author: MELITA GARCIA LPN Service: ? Author Type: LICENSED NURSE Type: Progress Notes Filed: 09/19/2023 14:05 Note Text: Scan on 09/18/2023 11:09 AM by Fco Albert PA-C: Jf Garcia LPN [facility] 09-19-2023 History of Presen t illness Narrative Scan on 09/18/2023 11:09 AM by ProviderFco PA-C: Jf Garcia LPN documented in this encounter [facility] 09-05-2023 Telephone encounter Note Patient notified and voiced understanding. Patient is noticing improvement with the topical treatment. He will let office know if he changes his mind about ortho. [facility] 09-05-2023 Miscellaneous Notes Patient notified and voiced understanding. Patient is noticing improvement with the topical treatment. He will let office know if he changes his mind about ortho. Let patient know that I just got results of xray back this morning. It shows joint effusion as we discussed but otherwise normal. See if patient would like to ortho. Or is he noticing improvement since starting the topical NSAID. Mayuri Collins PA-C documented in this encounter [facility] 09-05-2023 Telephone encounter Note Let patient know that I just got results of xray back this morning. It shows joint effusion as we discussed but otherwise normal. See if patient would like to ortho. Or is he noticing improvement since starting the topical NSAID. Mayuri Collins PA-C [facility] 2023 History of Presen t illness Narrative Radiology Service Progress Note PATIENT NAME: Jeramy Wood DATE OF SERVICE: 2023 TIME: 11:30 AM PATIENT IDENTITY VERIFICATION COMPLETED USING TWO (2) IDENTIFIERS: Name and Date of confirmed by patient verbally. FALL SCREENING: Has the patient had 2 falls in the last year or 1 fall with injury or currently using an Ambulatory Assistive Device (Walker, Cane, Wheelchair, Crutches, etc.)? No PATIENT GENDER DATA: Male PATIENT RELEVANT IMPLANT DATA REVIEWED: Yes PATIENT PRESENTS WITH AN IMPLANTABLE OR ATTACHED FULL TIME STAFF INTERPRETER: No RADIOLOGY DEPARTMENT: General X-ray: Exam(s) Completed: Lower Extremity X-Ray(s): Knee, AP / Lat / Tunne / Merchant Right and Wt. Bearing PERIPHERAL IV DATA: Not applicable SIGNED BY: SHAE Mcmahon) 2023 11:30 AM documented in this encounter [facility] 2023 Note HNO ID: [id number] Author: RADHA LEE RT (R) Service: Radiology Author Type: Technologist Type: Progress Notes Filed: 2023 11:43 Note Text: Radiology Service Progress Note PATIENT NAME: Jeramy Wood DATE OF SERVICE: 2023 TIME: 11:30 AM PATIENT IDENTITY VERIFICATION COMPLETED USING TWO (2) IDENTIFIERS: Name and Date of confirmed by patient verbally. FALL SCREENING: Has the patient had 2 falls in the last year or 1 fall with injury or currently using an Ambulatory Assistive Device (Walker, Cane, Wheelchair, Crutches, etc.)? No PATIENT GENDER DATA: Male PATIENT RELEVANT IMPLANT DATA REVIEWED: Yes PATIENT PRESENTS WITH AN IMPLANTABLE OR ATTACHED FULL TIME STAFF INTERPRETER: No RADIOLOGY DEPARTMENT: General X-ray: Exam(s) Completed: Lower Extremity X-Ray(s): Knee, AP / Lat / Tunne / Merchant Right and Wt. Bearing PERIPHERAL IV DATA: Not applicable SIGNED BY: SHAE Mcmahon) 2023 11:30 AM [facility] 2023 Note HNO ID: [id number] Author: MAYURI COLLINS PA-C Service: ? Author Type: Physician Dental Technologist Type: Progress Notes Filed: 2023 10:30 Note Text: Chief Complaint Patient presents with: Pain: AND swelling right knee X 2 wks HPI Jeramy Wood is a 62 year old male who presents here today for Above Complaints.. Patient reports Right knee pain for the past 2 weeks. State started at a softball practice but was just standing when he felt a pop. Reports it felt like his knee wanted to give out. A couple days later, noted knee swelling. Since then continues to have pain behind and below kneecap. Continued swelling Is currently in cardiac rehab [place]STEM[place]. Not sure if that could be irritating the knee also. Last 3 Encounter Wt Readings: Date: Wt: 04/14/2023 89.3 kg (196 lb 12.8 oz) 01/02/2023 86.6 kg (191 lb) 06/04/2022 84.8 kg (187 lb) Past medical history, appointments, medications, allergies reviewed. Previous Medical History PAST MEDICAL HISTORY Diagnosis Date Abdominal wall hernia 02/26/2013 Abdominal wall pain 01/01/2022 Acquired abdominal wall defect 03/13/2016 Acute embolism and thrombosis of deep vein of distal lower extremity (HCC) Acute renal failure (HCC) 06/01/2010 SECONDARY TO SEPTIC SHOCK, RECOVERED ON OWN Anxiety 03/10/2017 Atrial fibrillation (HCC) 12/18/2005 Benign prostatic hyperplasia with urinary frequency 02/08/2019 Sees Kay Duran NP with Dr. Jama BPH (benign prostatic hyperplasia) 05/21/2022 Dr. Jama. S/p TURP Cardiomyopathy in diseases classified elsewhere (HCC) Cardiomyopathy, nonischemic (HCC) 02/08/2019 associated with atrial fibrillation--well controlled. 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 Maher Septic shock(785.52) 06/01/2010 Small bowel obstruction (HCC) FOUND 06-01-10 ? FROM LAPRASCOPUIC HERNIA SURGERY Well adult exam 12/29/2020 Last done: 01/01/2022 Previous Surgical History PAST SURGICAL HISTORY Procedure Laterality Date ARTL CATHJ/CANNULJ MNTR/TRANSFUSION SPX PRQ 05/30/2010 CC CORONARY STENT 03/2023 stent to LAD COLONOSCOPY 07/03/2010 EXPLORATION ABDOMINAL WALL 06/13/2010 evacuation abdominal hematoma EXPLORATORY LAPAROTOMY, CELIOTOMY-SP 06/02/2010 placement of abdominal vac-pack EXPLORATORY LAPAROTOMY, CELIOTOMY-SP 06/02/2010 bowel resection, abdominal wash out EXPLORATORY LAPAROTOMY, CELIOTOMY-SP 06/08/2010 small bowel anastomosis INGUINAL HERNIA REPAIR HX Bilateral 05/28/2010 IR IVC FILTER PLACEMENT 07/19/2010 [employer] Eclipse Filter LAPAROSCOPY APPENDECTOMY 2019 NASAL SEPTUM REPOS W STABILIZATION 1979 PAST SURGICAL HISTORY OF 06/05/2010 reopening of recent laparotomy PAST SURGICAL HISTORY OF 06/11/2010 reopening of recent laparotomy, removal infected mesh PAST SURGICAL HISTORY OF 06/14/2010 reopening of recent laparotomy, abdominal wash out PAST SURGICAL HISTORY OF Left Heart catheterization PT ED HEART AND VASCULAR 03/26/2023 mid [facility] TRANSURETHRAL ELEC-SURG PROSTATECTOM 05/2022 UPPER GI ENDOSCOPY DIAGNOSTIC 07/02/2010 Family History FAMILY HISTORY Problem Relation Age of Onset Colon Cancer Mother 70 Coronary Artery Disease Mother other (Heart Disease) Mother other (amyotropic lateral sclerosis) Father Multiple Sclerosis Brother Multiple Sclerosis Sister Diabetes Maternal Grandfather Patient Allergies ALLERGIES Allergen Reactions No Known Drug Aller* Other: See Comments Current Medications Current Outpatient Medications on File Prior to Visit Medication Sig aspirin 81 mg cap Take 81 mg by mouth once daily. ticagrelor (BRILINTA) 90 mg tablet TWICE A DAY metoprolol tartrate, short acting, (LOPRESSOR) 25 mg tablet Take 1 tablet by mouth twice daily. COMPOUNDED PRESCRIPTION OTC sleep aid Diphenhydramine 50 mg atorvastatin (LIPITOR) 80 mg tablet Take 0.5 tablets by mouth once daily. Per [facility] (80 mg caused muscle aches) (Patient not taking: Reported on 2023) Lactobacillus acidophilus (PROBIOTIC ORAL) Take by mouth. (Patient not taking: Reported on 2023) Lactobacillus acidophilus (FLORAJEN ACIDOPHILUS ORAL) Take by mouth. (Patient not taking: Reported on 2023) No current facility-administered medications on file prior to visit. Social History Social History Tobacco Use Smoking status: Never Smokeless tobacco: Never Vaping Use (more content not included)... [facility] 2023 History of Presen t illness Narrative Chief Complaint Patient presents with: Pain: & swelling right knee X 2 wks HPI Jeramy Wood is a 62 year old male who presents here today for Above Complaints.. Patient reports Right knee pain for the past 2 weeks. State started at a softball practice but was just standing when he felt a pop. Reports it felt like his knee wanted to give out. A couple days later, noted knee swelling. Since then continues to have pain behind and below kneecap. Continued swelling Is currently in cardiac rehab after NSTEMI in [place]. Not sure if that could be irritating the knee also. Last 3 Encounter Wt Readings: Date: Wt: 04/14/2023 89.3 kg (196 lb 12.8 oz) 01/02/2023 86.6 kg (191 lb) 06/04/2022 84.8 kg (187 lb) Past medical history, appointments, medications, allergies reviewed. Previous Medical History PAST MEDICAL HISTORY Diagnosis Date Abdominal wall hernia 02/26/2013 Abdominal wall pain 01/01/2022 Acquired abdominal wall defect 03/13/2016 Acute embolism and thrombosis of deep vein of distal lower extremity (HCC) Acute renal failure (HCC) 06/01/2010 SECONDARY TO SEPTIC SHOCK, RECOVERED ON OWN Anxiety 03/10/2017 Atrial fibrillation (HCC) 12/18/2005 Benign prostatic hyperplasia with urinary frequency 02/08/2019 Sees Kay Duran NP with Dr. Jama BPH (benign prostatic hyperplasia) 05/21/2022 Dr. Jama. S/p TURP Cardiomyopathy in diseases classified elsewhere (HCC) Cardiomyopathy, nonischemic ([facility]) 02/08/2019 associated with atrial fibrillation--well controlled. 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 Maher Septic shock(785.52) 06/01/2010 Small bowel obstruction ([facility]) FOUND 06-01-10 ? FROM LAPRASCOPUIC HERNIA SURGERY Well adult exam 12/29/2020 Last done: 01/01/2022 Previous Surgical History PAST SURGICAL HISTORY Procedure Laterality Date ARTL CATHJ/CANNULJ MNTR/TRANSFUSION SPX PRQ 05/30/2010 CC CORONARY STENT 03/2023 stent to LAD COLONOSCOPY 07/03/2010 EXPLORATION ABDOMINAL WALL 06/13/2010 evacuation abdominal hematoma EXPLORATORY LAPAROTOMY, CELIOTOMY-SP 06/02/2010 placement of abdominal vac-pack EXPLORATORY LAPAROTOMY, CELIOTOMY-SP 06/02/2010 bowel resection, abdominal wash out EXPLORATORY LAPAROTOMY, CELIOTOMY-SP 06/08/2010 small bowel anastomosis INGUINAL HERNIA REPAIR HX Bilateral 05/28/2010 IR IVC FILTER PLACEMENT 07/19/2010 Bard Eclipse Filter LAPAROSCOPY APPENDECTOMY 2019 NASAL SEPTUM REPOS W STABILIZATION 1980 PAST SURGICAL HISTORY OF 06/05/2010 reopening of recent laparotomy PAST SURGICAL HISTORY OF 06/11/2010 reopening of recent laparotomy, removal infected mesh PAST SURGICAL HISTORY OF 06/14/2010 reopening of recent laparotomy, abdominal wash out PAST SURGICAL HISTORY OF Left Heart catheterization PT ED HEART AND VASCULAR 03/26/2023 mid LCA TRANSURETHRAL ELEC-SURG PROSTATECTOM 05/2022 UPPER GI ENDOSCOPY DIAGNOSTIC 07/02/2010 Family History FAMILY HISTORY Problem Relation Age of Onset Colon Cancer Mother 70 Coronary Artery Disease Mother other (Heart Disease) Mother other (amyotropic lateral sclerosis) Father Multiple Sclerosis Brother Multiple Sclerosis Sister Diabetes Maternal Grandfather Patient Allergies ALLERGIES Allergen Reactions No Known Drug Aller* Other: See Comments Current Medications Current Outpatient Medications on File Prior to Visit Medication Sig aspirin 81 mg cap Take 81 mg by mouth once daily. ticagrelor (BRILINTA) 90 mg tablet TWICE A DAY metoprolol tartrate, short acting, (LOPRESSOR) 25 mg tablet Take 1 tablet by mouth twice daily. COMPOUNDED PRESCRIPTION OTC sleep aid Diphenhydramine 50 mg atorvastatin (LIPITOR) 80 mg tablet Take 0.5 tablets by mouth once daily. Per [facility] (80 mg caused muscle aches) (Patient not taking: Reported on 2023) Lactobacillus acidophilus (PROBIOTIC ORAL) Take by mouth. (Patient not taking: Reported on 2023) Lactobacillus acidophilus (FLORAJEN ACIDOPHILUS ORAL) Take by mouth. (Patient not taking: Reported on 2023) No current facility-administered medications on file prior to visit. Social History Social History Tobacco Use Smoking status: Never Smokeless tobacco: Never Vaping Use Vaping Use: Never used Substance Use Topics Alcohol use: Not Currently Comment: SOCIAL BEER Drug use: No Review of Symptoms REVIEW OF SYSTEMS See hpi EXAM: BP (P) 104/70 (BP Site: Left Arm, BP Position: Sitting, BP Cuff Size: Regular Adult) Pulse (P) 60 Resp (P) 16 Wt (P) 83.5 kg (184 lb) SpO2 (P) 96% BMI (P) 25.20 kg/m General Appearance: Well appearing, alert, in no acute distress, well-hydrated, well nourished.. Extremities: Neg Homans, No edema, skin discoloration, clubbing or cyanosis. Good capillary refill. . Musculoskeletal: R knee: swelling/effusion noted. Flexion limited. Full extension. + pain to palp of patella tendon. No joint line tenderns. Neg andrew. Neg apley. Neg brenda test. No pain with valgus/varus strain. NVI. Health Maintenance List Shingrix Vaccine(1 of 2) Never done RSV Vaccine(1 - 1-dose 60+ series) Never done Colorectal Cancer Screening due on 01/12/2022 Covid-19 Vaccine( season) due on 01/10/2023 Behavioral Health Screening Never done LDL Cholesterol due on 01/02/2024 Annual PCP Team Chronic Disease Visit due on 04/14/2024 DTaP,Tdap,Td Vaccine(3 - Td or Tdap) due on 10/03/2025 Diabetes Screening due on 01/01/2026 Prostate Cancer Screening Discussion due on 09/28/2027 Lipid Screening due on 01/02/2028 Influenza Vaccine Completed Hepatitis C Screening Completed HPV Vaccine Aged Out HIV Screening Discontinued Data reviewed ASSESSMENT/PLAN: 1. Acute pain of right knee - ICD9: 719.46, ICD10: M25.561 Suspect effusion present Check xray today Start topical NSAID. Discussed Physical Therapy May need ortho consult or MRI. - XR KNEE GENERAL 4V AP BOTH/PA BOTH/LAT/MERC RIGHT Mayuri Collins PA-C documented in this encounter [facility] 07-29-2023 Miscellaneous Notes Addended by: SHAN CHRISTIANSON on: 07/29/2023 04:14 PM Modules accepted: Orders documented in this encounter [facility] 07-29-2023 Note HNO ID: [id number] Author: SHON VELASQUEZ LPN Service: ? Author Type: LICENSED NURSE Type: Progress Notes Filed: 07/29/2023 10:38 Note Text: Scan on 07/28/2023 12:52 PM by ProviderFco PA-C: Consultation - Cardiology [facility] 07-29-2023 History of Presen t illness Narrative Scan on 07/28/2023 12:52 PM by Fco Albert PA-C: Consultation - Cardiology documented in this encounter [facility] 07-25-2023 Note HNO ID: [id number] Author: SHON VELASQUEZ LPN Service: ? Author Type: LICENSED NURSE Type: Progress Notes Filed: 07/25/2023 13:11 Note Text: Scan on 07/23/2023 11:41 AM by ProviderFco PA-C: Chemistry [facility] 07-25-2023 History of Presen t illness Narrative Scan on 07/23/2023 11:41 AM by ProviderFco PA-C: Chemistry documented in this encounter [facility] 04-22-2023 History of Presen t illness Narrative Scan on 04/22/2023 12:09 PM by ProviderFco PA-C: Consultation - Cardiology documented in this encounter [facility] 04-14-2023 Instructions CarolalogAlivia mackay APRN.[email or web address] - 04/14/2023 12:06 PM EST Follow-up with PCP as scheduled, sooner if needed documented in this encounter [facility] 04-14-2023 History of Presen t illness Narrative 04/14/2023 Patient presents with: Hospital F/U: [facility] had stent placement. Has follow up 04/22 for stent SUBJECTIVE: This is a 62 year old that is here today for Above Complaints. HOSPITAL/ER FOLLOW UP: Reason for visit: chest pain Which facility: [facility] Date of visit: 03/25/2023-03/27/2023 Diagnosis: Acute non-STEMI Testing done: blood work, EKG, ECHO, cardiac cath Treatment given: stent placed - found to have high grade 90% stenosis of the mid LCA Has follow-up scheduled with [facility] cardiology on 04/22/2023. Started on Brilinta and changed to Atorvastatin from Pravastatin. Has noticed some increased muscle aching from the atorvastatin but reports stretching is helping. Admits to some mild SOB at times. Denies back/jaw pain, dyspnea, chest pain, palpitations or leg swelling Hospital records reviewed PAST MEDICAL HISTORY Diagnosis Date Abdominal wall hernia 02/26/2013 Abdominal wall pain 01/01/2022 Acquired abdominal wall defect 03/13/2016 Acute embolism and thrombosis of deep vein of distal lower extremity ([facility]) Acute renal failure ([facility]) 06/01/2010 SECONDARY TO SEPTIC SHOCK, RECOVERED ON OWN Anxiety 03/10/2017 Atrial fibrillation ([facility]) 12/18/2005 Benign prostatic hyperplasia with urinary frequency 02/08/2019 Sees Kay Duran NP with Dr. Jama BPH (benign prostatic hyperplasia) 05/21/2022 Dr. Jama. S/p TURP Cardiomyopathy in diseases classified elsewhere ([facility]) Cardiomyopathy, nonischemic ([facility]) 02/08/2019 associated with atrial fibrillation--well controlled. 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 Maher Septic shock(785.52) 06/01/2010 Small bowel obstruction ([facility]) FOUND 06-01-10 ? FROM LAPRASCOPUIC HERNIA SURGERY Well adult exam 12/29/2020 Last done: 01/01/2022 ALLERGIES No Known Drug Allergies MEDICATIONS Current Outpatient Medications Medication Sig Lactobacillus acidophilus (PROBIOTIC ORAL) Take by mouth. Lactobacillus acidophilus (FLORAJEN ACIDOPHILUS ORAL) Take by mouth. metoprolol tartrate, short acting, (LOPRESSOR) 25 mg tablet Take 1 tablet by mouth twice daily. COMPOUNDED PRESCRIPTION OTC sleep aid Diphenhydramine 50 mg flecainide (TAMBOCOR) 100 mg tablet Take 1 tablet by mouth twice daily. pravastatin (PRAVACHOL) 10 mg tablet Take 10 mg by mouth once daily. No current facility-administered medications for this visit. Medications and allergies reviewed by this provider. SOCIAL HISTORY Social History Tobacco Use Smoking status: Never Smokeless tobacco: Never Vaping Use Vaping Use: Never used Substance Use Topics Alcohol use: Not Currently Comment: SOCIAL BEER Drug use: No REVIEW OF SYSTEMS All other reviewed and negative other than HPI. OBJECTIVE: BP 118/84 Pulse 66 Resp 18 Wt 89.3 kg (196 lb 12.8 oz) SpO2 98% BMI 26.95 kg/m . Vital signs reviewed by this provider. APPEARANCE Well appearing, alert, in no acute distress, well-hydrated, well nourished. EYES conjunctiva and sclera normal. HEART RRR with normal S1 and S2, no murmurs, no gallops, no JVD appreciated LUNG clear to auscultation. No wheezes, rhonchi or rales SKIN Skin color, texture, turgor normal, no suspicious rashes or lesions to exposed skin Shingrix Vaccine(1 of 2) Never done RSV Vaccine(1 - 1-dose 60+ series) Never done Colorectal Cancer Screening due on 01/12/2022 Influenza Vaccine(1) due on 01/10/2023 Covid-19 Vaccine(2022- season) due on 01/10/2023 Depression Assessment due on 05/11/2023 LDL Cholesterol due on 01/02/2024 Annual PCP Team Chronic Disease Visit due on 04/14/2024 DTaP,Tdap,Td Vaccine(3 - Td or Tdap) due on 10/03/2025 Diabetes Screening due on 01/01/2026 Prostate Cancer Screening Discussion due on 09/28/2027 Lipid Screening due on 01/02/2028 Hepatitis C Screening Completed HPV Vaccine Aged Out HIV Screening Discontinued ASSESSMENT/PLAN: 1. Hospital discharge follow-up - ICD9: V67.59, ICD10: Z09 (primary diagnosis) - plan as below - follow-up as scheduled with PCP, sooner if needed 2. Non-STEMI (non-ST elevated myocardial infarction) (HCC) - ICD9: 410.70, ICD10: I21.4 - continue current medications - follow-up with cardiology as scheduled 3. S/P drug eluting coronary stent placement - ICD9: V45.82, ICD10: Z95.5 - plan as in#2 Alivia Frank APRN.[employer]ER Prescription instructions reviewed with patient as applicable. Patient advised if symptoms do not improve or if symptoms worsen sooner, to contact their primary care physician. Potential red flag symptoms discussed with the patient. Reviewed appropriate action plan to take if red flag symptoms occur. Patient agreeable to treatment plan. I spent a total of 30 minutes on the date of the service which included preparing to see the patient, scun-wo-lowd patient care, completing clinical documentation, obtaining and/or reviewing separately obtained history, performing a medically appropriate examination, counseling and educating the patient/family/caregiver, and ordering medications, tests, or procedures. documented in this encounter [facility] 03-31-2023 History of Presen t illness Narrative Scan on 03/31/2023 2:54 PM by ProviderFco PA-C: Consultation - documented in this encounter [facility] 03-27-2023 History of Presen t illness Narrative Scan on 03/25/2023 5:29 PM by ProviderFco PA-C: Consultation - Cardiology Scan on 03/26/2023 12:56 PM by Fco Albert PA-C: Cardiac Cath documented in this encounter [facility] 03-27-2023 Progress note Note Date/Time March 27, 2023 8:05am [facility] Medical Records Department [address] [place] [id number] Progress Note - Hospitalist 03/27/23 0804 MR#: [id number] Acct: [id number] Name: JERAMY WOOD Rep #:[id number] : 1960 62 From: Esteban Taylor MD PCP: Dr. Shan Christianson MD Status:ADM IN Location: [place] [id number] Reason for Visit Reason for Visit: Diagnoses Pure hypercholesterolemia, unspecified (03/25/23) Non-ST elevation (NSTEMI) myocardial infarction (03/25/23) Paroxysmal atrial fibrillation (03/25/23) Pain in thoracic spine (03/25/23) Chest pain, unspecified (03/25/23) Subjective Subjective Patient underwent left heart catheterization with successful PCI of high-grade 90% stenosis of the mid LAD with a JUAN LUIS. Plan is for patient to be assessed for discharge Objective Data Objective Data Vital Signs: Vital Signs Temp Pulse Resp BP Pulse Ox O2 Del Method 98 F 65 14 102/70 95 Room Air 03/27/23 03:00 03/27/23 03:00 03/27/23 03:00 03/27/23 03:00 03/27/23 03:00 03/27/23 03:00 Oxygen Delivery Method Room Air Weight: 87.1 kg Body Mass Index (BMI) 26.0 Intake & Output: Intake and Output for Last 24 Hours 03/25/23 03/26/23 03/27/23 23:59 23:59 23:59 Intake Total 1018.5 / 1378.5 552.20 / 792.20 1480 / 1480 Balance 1018.5 / 1378.5 552.20 / 792.20 1480 / 1480 Lab / Micro Data 03/27/23 07:34 03/27/23 07:34 Labs: Laboratory Results - last 24 hr 03/26/23 07:00: WBC 4.8, RBC 4.57 L, Hgb 14.4, Hct 42.6, MCV 93.2, MCH 31.5, MCHC 33.8, RDW Std Deviation 43.0, RDW Coeff of Lance 12.5, Plt Count 128 L, MPV 9.9, Immature Gran % (Auto) 0.400, Neut % (Auto) 43.5 L, Lymph % (Auto) 41.8 H, [place] % (Auto) 8.5, Eos % (Auto) 5.2 H, Baso % (Auto) 0.6, Absolute Neuts (auto) 2.1, Absolute Lymphs (auto) 2.02, Nucleated RBC % 0, APTT 56.9 H 03/27/23 07:34: WBC 6.5, RBC 4.73, Hgb 14.9, Hct 43.8, MCV 92.6, MCH 31.5, MCHC 34.0, RDW Std Deviation 42.2, RDW Coeff of Lance 12.4, Plt Count 138 L, MPV 9.2 Physical Exam Narrative GENERAL: cooperative HEENT: Atraumatic; normocephalic EYES; Anicteric, Normal Conjunctiva NECK; supple, normal thyroid, RESPIRATORY: Diminished to auscultation CARDIOVASCULAR: Regular S1 S2, GI: soft, normoactive bowel sounds, : No Renal angle tenderness; EXTREMITIES: No edema, no clubbing, MUSCULOSKELETAL: no muscle wasting NEURO: Awake; no lateralizing signs. SKIN: No Rash PSYCH; Flat affect Assessment & Plan Assessment/Plan (1) Chest pain: QUALIFIERS: Chest pain type: chest pain due to myocardial ischemia Ischemic chest pain type: unstable angina pectoris Qualified Code(s): I20.0 - Unstable angina PLAN: Plan Patient is a 62-year-old gentleman admitted with chest pain with elevated troponin 1. Acute non-STEMI ? Treatment initiated per protocol admitted to a monitored bed consult placed tocardiology plans for patient to undergo left heart catheterization. Echo demonstrated EF of 50 to 55% 03/27/2023;Patient underwent left heart catheterization with successful PCI of high-grade 90% stenosis of the mid LAD with a JUAN LUIS. Plan is for patient to be assessed for discharge 2. Chronic thrombocytopenia Chronic we will continue with monitoring 3. Paroxysmal atrial fibrillation Did continue home meds including metoprolol and flecainide.[id number] score islow at 0 therefore not anticoagulated 4. Dyslipidemia ?Patient is on statin therapy, continued at home dose 5. History of nonischemic cardiomyopathy -This has resolved with his last EF being 60% on echo from 04/26/2014 -Continue outpatient cardiology follow-up 6. DVT prophylaxis -Subcu Lovenox Time spent in the patient's overall evaluation,decision-making process, review of diagnostic data, adjustment of management, discussion with other providers, nursing nursing and ancillary staff involved in patient's care documentation, 40 Minutes Charges/Coding Visit Charges Inpatient E&M: 44554 Subs Hosp L2 03/27/23 1136 <Electronically signed by Esteban Taylor MD> Cosigner Signature (if applicable): CC: ~ Signed [facility] Work Phone: 1(726) 362-338011-15-2023 Progress note Author Darin Alexander [facility] March 26, 2023 5:20pm Note Date/Time March 26, 2023 11:38am [facility] Medical Records Department [facility] [place] [address] Progress Note - Cardiology 03/26/23 1129 MR#: [id number] Acct: [id number] Name: JERAMY WOOD Rep #:[id number] : 1960 62 From: Darin Alexander MD PCP: Dr. Shan Christianson MD Status:ADM IN Location: [place] [address] <Statement entered by Darin Alexander MD - 03/26/23 17:18> Pt seen & evaluated w/SABINA. I personally interviewed & exam the pt. I was involved in all aspects of pt's orders, interpretation of results & treatment Subjective Subjective Pt seen and examined today. He will be undergoing heart cath today. No event overnight. Objective Data Vital Signs: Vital Signs Temp Pulse Resp BP Pulse Ox O2 Del Method 97.8 F 65 15 98/62 95 Room Air 03/26/23 07:58 03/26/23 08:01 03/26/23 07:58 03/26/23 07:58 03/26/23 07:58 03/26/23 07:58 Oxygen Delivery Method Room Air Weight: 192 lb 0.362 oz Body Mass Index (BMI) 26.0 Intake & Output: Intake and Output for Last 24 Hours 03/24/23 03/25/23 03/26/23 23:59 23:59 23:59 Intake Total 1018.5 / 1378.5 544.00 / 544.00 Balance 1018.5 / 1378.5 544.00 / 544.00 Lab / Micro Data 03/26/23 07:00 03/26/23 07:00 Labs: Laboratory Results - last 24 hr 03/25/23 18:09: APTT 47.4 H 03/26/23 00:15: APTT 47.8 H 03/26/23 07:00: WBC 4.8, RBC 4.57 L, Hgb 14.4, Hct 42.6, MCV 93.2, MCH 31.5, MCHC 33.8, RDW Std Deviation 43.0, RDW Coeff of Lance 12.5, Plt Count 128 L, MPV 9.9, Immature Gran % (Auto) 0.400, Neut % (Auto) 43.5 L, Lymph % (Auto) 41.8 H, [place] % (Auto) 8.5, Eos % (Auto) 5.2 H, Baso % (Auto) 0.6, Absolute Neuts (auto) 2.1, Absolute Lymphs (auto) 2.02, Nucleated RBC % 0, APTT 56.9 H, Sodium 139, Potassium 3.7, Chloride 108 H, Carbon Dioxide 26.0, Anion Gap 5, BUN 21 H, Creatinine 1.15, Estim Creat Clear Calc 73.10, Est GFR (MDRD) Af Amer 83, Est GFR (MDRD) Non-Af 68, BUN/Creatinine Ratio 18.3, Glucose 90, Calcium 8.6, Troponin I High Sens 44 Cardiology Labs/Tests 03/25/23 18:09: APTT 47.4 H 03/26/23 00:15: APTT 47.8 H 03/26/23 07:00: WBC 4.8, RBC 4.57 L, Hgb 14.4, Hct 42.6, MCV 93.2, MCH 31.5, MCHC 33.8, Plt Count 128 L, MPV 9.9, Immature Gran % (Auto) 0.400, Neut % (Auto)43.5 L, Lymph % (Auto) 41.8 H, [place] % (Auto) 8.5, Eos % (Auto) 5.2 H, Baso % (Auto) 0.6, Absolute Neuts (auto) 2.1, Nucleated RBC % 0, APTT 56.9 H, Sodium 139, Potassium 3.7, Chloride 108 H, Carbon Dioxide 26.0, Anion Gap 5, BUN 21 H, Creatinine 1.15, Est GFR (MDRD) Af Amer 83, Est GFR (MDRD) Non-Af 68, BUN/Creatinine Ratio 18.3, Glucose 90, Calcium 8.6 EKG: SR with 1st AVB Radiography Diagnostic Testing: Radiology Impression Echocardiogram 03/25/23 11:14 Interpretation Summary The estimated ejection fraction is 50-55 %. Normal LV systolic function No significant change in comparison to previous echocardiogram in 2013 Ordering Physician: Yeni Cha Referring Physician: Shan Christianson Performed By: Malcolm Bailey RCS Physical Exam Const alert, oriented x3, no apparent distress and healthy appearing HEENT normocephalic, head/scalp atraumatic, hearing grossly normal bilaterally, external ears normal, external nose normal and moist oral mucous membranes Eyes PERRL, EOMs intact bilaterally, conjunctivae normal and no scleral icterus Neck no lymphadenopathy, supple and no JVD Cardio regular rate, regular rhythm, S1 normal heart sound, S2 normal heart sound, no murmurs, no rub, no gallops, no clicks, no JVD and peripheral pulses 2+ throughout GI normal to inspection, nondistended, normoactive bowel sounds, soft to palpation,non-tender and non-distended Extremity normal to inspection, normal capillary refill, no clubbing, cyanosis or edema and no pedal edema Neuro oriented x3, CN's II-XII intact bilaterally, moves all extremities and no focal motor deficits Psych cooperative and affect normal Assessment & Plan Assessment/Plan (1) NSTEMI (non-ST elevated myocardial infarction): (2) Chest pain: (3) Paroxysmal atrial fibrillation: (4) Pure hypercholesterolemia: PLAN: Plan * Troponin trended 38/55/88/117/44, He will undergo a heart cath today. * Echo demonstrated and EF of 50-55%. * will continue with ASA and Atorvastatin. With is lower BP will not start CAN at this time. * Will continue with his flecainide and metoprolol. He has not had any recurrence on telemetry. With his lower platelets will not start on Eliquis. He does have a CHADVASC2 of 0. Charges/Coding Visit Charges Inpatient E&M: 49956 Subs Hosp L3 03/26/23 1720 <Electronically signed by Darin Alexander MD> Cosigner Signature (if applicable): 03/26/23 1138 <Electronically signed by Yeni DURAN PA> CC: ~ Signed [facility] Work Phone: 1(262) 945-645011-15-2023 Progress note Author Esteban Kittoe [facility] March 26, 2023 1:24pm Note Date/Time March 26, 2023 10:14am [facility] Medical Records Department [address] [place] [address] Progress Note - Hospitalist 03/26/23 1013 MR#: [id number] Acct: [id number] Name: JERAMY WOOD Rep #:[id number] : 1960 62 From: Esteban Taylor MD PCP: Dr. Shan Christianson MD Status:ADM IN Location: [place] [address] Reason for Visit Reason for Visit: Diagnoses Pure hypercholesterolemia, unspecified (03/25/23) Non-ST elevation (NSTEMI) myocardial infarction (03/25/23) Paroxysmal atrial fibrillation (03/25/23) Pain in thoracic spine (03/25/23) Chest pain, unspecified (03/25/23) Subjective Subjective Patient is a 62-year-old gentleman admitted with chest pain with elevated troponin Objective Data Objective Data Vital Signs: Vital Signs Temp Pulse Resp BP Pulse Ox O2 Del Method 97.8 F 65 15 98/62 95 Room Air 03/26/23 07:58 03/26/23 08:01 03/26/23 07:58 03/26/23 07:58 03/26/23 07:58 03/26/23 07:58 Oxygen Delivery Method Room Air Weight: 87.1 kg Body Mass Index (BMI) 26.0 Intake & Output: Intake and Output for Last 24 Hours 03/24/23 03/25/23 03/26/23 23:59 23:59 23:59 Intake Total 1018.5 / 1378.5 430.03 / 430.03 Balance 1018.5 / 1378.5 430.03 / 430.03 Lab / Micro Data 03/26/23 07:00 03/26/23 07:00 Labs: Laboratory Results - last 24 hr 03/25/23 10:33: APTT 25.4, Troponin I High Sens 117 H 03/25/23 18:09: APTT 47.4 H 03/26/23 00:15: APTT 47.8 H 03/26/23 07:00: WBC 4.8, RBC 4.57 L, Hgb 14.4, Hct 42.6, MCV 93.2, MCH 31.5, MCHC 33.8, RDW Std Deviation 43.0, RDW Coeff of Lance 12.5, Plt Count 128 L, MPV 9.9, Immature Gran % (Auto) 0.400, Neut % (Auto) 43.5 L, Lymph % (Auto) 41.8 H, [place] % (Auto) 8.5, Eos % (Auto) 5.2 H, Baso % (Auto) 0.6, Absolute Neuts (auto) 2.1, Absolute Lymphs (auto) 2.02, Nucleated RBC % 0, APTT 56.9 H, Sodium 139, Potassium 3.7, Chloride 108 H, Carbon Dioxide 26.0, Anion Gap 5, BUN 21 H, Creatinine 1.15, Estim Creat Clear Calc 73.10, Est GFR (MDRD) Af Amer 83, Est GFR (MDRD) Non-Af 68, BUN/Creatinine Ratio 18.3, Glucose 90, Calcium 8.6, Troponin I High Sens 44 Radiography Diagnostic Testing: Radiology Impression Echocardiogram 03/25/23 11:14 Interpretation Summary The estimated ejection fraction is 50-55 %. Normal LV systolic function No significant change in comparison to previous echocardiogram in 2013 Ordering Physician: Yeni Cha Referring Physician: Shan Christianson Performed By: Malcolm Bailey RCS Physical Exam Narrative GENERAL: cooperative HEENT: Atraumatic; normocephalic EYES; Anicteric, Normal Conjunctiva NECK; supple, normal thyroid, RESPIRATORY: Diminished to auscultation CARDIOVASCULAR: Regular S1 S2, GI: soft, normoactive bowel sounds, : No Renal angle tenderness; EXTREMITIES: No edema, no clubbing, MUSCULOSKELETAL: no muscle wasting NEURO: Awake; no lateralizing signs. SKIN: No Rash PSYCH; Flat affect Assessment & Plan Assessment/Plan (1) Chest pain: PLAN: Plan Patient is a 62-year-old gentleman admitted with chest pain with elevated troponin 1. Acute non-STEMI ? Treatment initiated per protocol admitted to a monitored bed consult placed tocardiology plans for patient to undergo left heart catheterization. Echo demonstrated EF of 50 to 55% 2. Chronic thrombocytopenia Chronic we will continue with monitoring 3. Paroxysmal atrial fibrillation Did continue home meds including metoprolol and flecainide.[id number] score islow at 0 therefore not anticoagulated 4. Dyslipidemia ?Patient is on statin therapy, continued at home dose 5. History of nonischemic cardiomyopathy -This has resolved with his last EF being 60% on echo from 04/26/2014 -Continue outpatient cardiology follow-up 6. DVT prophylaxis -Subcu Lovenox Time spent in the patient's overall evaluation,decision-making process, review of diagnostic data, adjustment of management, discussion with other providers, nursing nursing and ancillary staff involved in patient's care documentation, 52 Minutes Charges/Coding Visit Charges Inpatient E&M: [address] [address] 03/26/23 1324 <Electronically signed by Esteban Taylor MD> Cosigner Signature (if applicable): CC: ~ Signed [facility] Work Phone: 1(310) 260-724211-15-2023 Evaluation note* Diagnosis Onset Date Resolution Status Stented coronary artery March 26, 2023 acute Paroxysmal atrial fibrillation chronic Pure hypercholesterolemia [facility] Stented coronary artery March 26, 2023 acute Paroxysmal atrial fibrillation chronic Pure hypercholesterolemia [facility] Work Phone: 1(282) 369-489611-15-2023 Evaluation note* Diagnosis Onset Date Resolution Status Stented coronary artery March 26, 2023 acute Paroxysmal atrial fibrillation chronic Pure hypercholesterolemia [facility] Work Phone: 1(217) 620-764711-14-2023 Consult note Author Darin Alexander [facility] March 25, 2023 5:19pm Note Date/Time March 25, 2023 11:22am [facility] Medical Records Department [address] [place] [address] Consultation - Cardiology 03/25/23 1111 MR#: [id number] Acct: [id number] Name: ROCKJERAMY PALOMA Rep #:[id number] : 1960 62 From: Darin Alexander MD PCP: Dr. Shan Christianson MD Status:ADM CASIMIRO Location: [place] [address] <Statement entered by Darin Alexander MD - 03/25/23 17:19> Pt seen & evaluated w/SABINA. I personally interviewed & exam the pt. I was involved in all aspects of pt's orders, interpretation of results & treatment Assessment & Plan Assessment/Plan (1) NSTEMI (non-ST elevated myocardial infarction): (2) Chest pain: (3) Paroxysmal atrial fibrillation: (4) Pure hypercholesterolemia: PLAN: Plan * will repeat another troponin to continue to trend * Will start on Heparin and plan on heart cath for tomorrow * Will obtain echo today to check LV function * will continue with ASA and Atorvastatin * Will continue with his flecainide and metoprolol HPI Consult Data Date of Consult: 03/25/23 HPI Narrative HPI Narrative: JERAMY WOOD, is a 62 M who presented to [facility] ER last night for chest pain. He describes this as in his back and down his arms. It had been going on for 2 days. Yesterday it was a 02/18. It did resolve prior to coming to the ER. CTAwas negative. He was admitted to PCU for possible stress in the morning. Troponins trended 38/55/88. With his elevated troponin we were consulted. Pt does have a hx ofnon CAD related cardiomyopathy, paroxysmal atrial fibrillation,and hyperlipidemia. He was just seen in the office a few weeks ago and did not have any complaints. Echocardiogram was last done in 2013 with a normal EF. Stress test done in 2019: normal [facility] Medical History (Updated 03/25/23 @ 11:31 by Yeni DURAN, PA) Acute embolism and thrombosis of deep vein of distal lower extremity Atrial fibrillation Cancer Cardiomyopathy in other diseases classified elsewhere DVT (deep venous thrombosis) Encounter for screening for COVID-19 Family history of hypertension GERD (gastroesophageal reflux disease) Hyperlipidemia Irregular heart beat Kidney stones NSTEMI (non-ST elevated myocardial infarction) Palpitations Paroxysmal atrial fibrillation Pure hypercholesterolemia URI (upper respiratory infection) Home Medications diphenhydramine HCl 50 mg capsule 50 mg PO QHS 12/26/21 [History Last Taken Unknown] pravastatin 10 mg tablet 10 mg PO QHS #90 tabs 02/05/23 [Rx Last Taken Unknown] flecainide 100 mg tablet 100 mg PO BID #180 tabs 03/18/23 [Rx Last Taken Unknown] metoprolol tartrate 25 mg tablet 25 mg PO BID #180 tabs 03/18/23 [Rx Last Taken Unknown] Allergy/AdvReac Type Severity Reaction Status Date / Time No Known Allergies Allergy Verified 03/24/23 20:27 Family History Father Martha Gehrig disease Mother Myocardial infarction CAD (coronary artery disease) Brother Myocardial infarction, Onset Age: 60 Hypertension Multiple sclerosis Other Family history of hypertension Surgical History History of appendectomy History of left heart catheterization (LHC) Presence of IVC filter Social History household members: spouse housing: house Smoking Status: Never smoker alcohol intake: current alcohol intake frequency: a few times a week Alcohol type: beer substance use type: does not use caffeine: Yes Type: coffee Number of servings: 2 what type of physical activity do you participate in: none seatbelt use: always do you feel safe at home: Yes ROS Constitutional Constitutional: Denies fatigue, headache(s) or lethargy Eyes Eyes: Denies acute decrease in peripheral vision, blurry vision or change in vision ENT HEENT: Denies dizziness, dry mouth, epistaxis, headache(s), tinnitus or vertigo Cardiovascular Cardiovascular: Reports chest pain; Denies claudication, dyspnea at rest, dyspnea on exertion, edema, irregular heart rhythm, lightheadedness, orthopnea, orthostatic symptoms, palpitations or pedal edema Respiratory/Chest Respiratory/Chest: Denies cough, dyspnea, dyspnea on exertion, tachypnea or wheezing Gastrointestinal Gastrointestinal: Denies abdominal pain, bloating, coffee ground emesis, diarrhea, heartburn, hematemesis, hematochezia, melena or nausea Genitourinary Genitourinary: Denies hematuria Musculoskeletal Musculoskeletal: Denies myalgias, numbness or tingling Neurologic Neurologic: Denies abnormal gait, abnormal speech, memory loss, paresthesias or weakness Physical Exam Const alert, oriented x3, no apparent distress and healthy appearing HEENT normocephalic, head/scalp atraumatic, hearing grossly normal bilaterally, external ears normal, external nose normal and moist oral mucous membranes Eyes PERRL, EOMs intact bilaterally, conjunctivae normal and no scleral icterus Neck no lymphadenopathy, supple and no JVD Cardio regular rate, regular rhythm, S1 normal heart sound, S2 normal heart sound, no murmurs, no rub, no gallops, no clicks, no JVD and peripheral pulses 2+ throughout GI normal to inspection, nondistended, normoactive bowel sounds, soft to palpation,non-tender and non-distended Extremity normal to inspection, normal capillary refill, no clubbing, cyanosis or edema and no pedal edema Neuro oriented x3, CN's II-XII intact bilaterally, moves all extremities and no focal motor deficits Psych cooperative and affect normal Risk Stratification Risk Stratification Applicable: Yes Age >/= 65: No >/= 3 CAD Risk Factors (HTN, HLD, DM, family hx of CAD, or current smoker): No Aspirin Use in the Past 7 Days: Yes Severe Angina (>/= episodes in 24 hours): Yes EKG ST Changes >/= 0.5mm: No Positive Cardiac Marker: Yes KHADRA Risk Stratification Score: 3 KHADRA % Risk: 13% Risk Charges/Coding Visit Charges Office Visits / Consults: 36719 IP Consult L4 Objective Data Vital Signs: Vital Signs Temp Pulse Resp BP Pulse Ox O2 Del Method 97.6 F L 69 16 108/73 92 Room Air 03/25/23 06:14 03/25/23 08:48 03/25/23 06:14 03/25/23 06:14 03/25/23 07:40 03/25/23 07:40 Oxygen Delivery Method Room Air Weight: 192 lb 0.362 oz Body Mass Index (BMI) 26.0 Intake & Output: Intake and Output for Last 24 Hours 03/23/23 03/24/23 03/25/23 23:59 23:59 23:59 Intake Total Balance Lab / Micro Data 03/25/23 03:34 03/25/23 03:34 Labs: Laboratory Results - last 24 hr 03/24/23 21:20: WBC 7.7, RBC 4.77, Hgb 15.0, Hct 44.3, MCV 92.9, MCH 31.4, MCHC 33.9, RDW Std Deviation 41.7, RDW Coeff of Lance 12.2, Plt Count 149 L, MPV 9.5, Immature Gran % (Auto) 0.400, Neut % (Auto) 49.9, Lymph % (Auto) 34.1, [place] % (Auto) 9.9, Eos % (Auto) 4.9, Baso % (Auto) 0.8, Absolute Neuts (auto) 3.9, Absolute Lymphs (auto) 2.64, Nucleated RBC % 0, D-Dimer Quant (PE/DVT) < 0.27 L,Sodium 138, Potassium 3.9, Chloride 107, Carbon Dioxide 24.0, Anion Gap 7, BUN 20 H, Creatinine 1.22, Estim Creat Clear Calc 68.91, Est GFR (MDRD) Af Amer 77, Est GFR (MDRD) Non-Af 64, BUN/Creatinine Ratio 16.4, Glucose 90, Calcium 8.8, Troponin I High Sens 38 03/24/23 23:30: Troponin I High Sens 55 03/25/23 03:34: WBC 6.6, RBC 4.68, Hgb 14.7, Hct 43.1, MCV 92.1, MCH 31.4, MCHC 34.1, RDW Std Deviation 41.2, RDW Coeff of Lance 12.2, Plt Count 132 L, MPV 9.5, Sodium 139, Potassium 3.8, Chloride 107, Carbon Dioxide 26.0, Anion Gap 6, BUN 18, Creatinine 1.12, Estim Creat Clear Calc 75.06, Est GFR (MDRD) Af Amer 85, Est GFR (MDRD) Non-Af 71, BUN/Creatinine Ratio 16.1, Glucose 84, Calcium 8.5, Total Bilirubin 0.50, AST 23, ALT 36, Alkaline Phosphatase 67, Troponin I High Sens 88 H, Total Protein 6.6, Albumin 3.5, Globulin 3.1, Albumin/Globulin Ratio 1.1, Triglycerides 202 H, Cholesterol 154, LDL Cholesterol 74, VLDL Cholesterol 40, HDL Cholesterol 40 03/25/23 10:33: APTT 25.4 Cardiology Labs/Tests 03/24/23 21:20: WBC 7.7, RBC 4.77, Hgb 15.0, Hct 44.3, MCV 92.9, MCH 31.4, MCHC 33.9, Plt Count 149 L, MPV 9.5, Immature Gran % (Auto) 0.400, Neut % (Auto) 49.9, Lymph % (Auto) 34.1, [place] % (Auto) 9.9, Eos % (Auto) 4.9, Baso % (Auto) 0.8, Absolute Neuts (auto) 3.9, Nucleated RBC % 0, D-Dimer Quant (PE/DVT) < 0.27L, Sodium 138, Potassium 3.9, Chloride 107, Carbon Dioxide 24.0, Anion Gap 7, BUN 20 H, Creatinine 1.22, Est GFR (MDRD) Af Amer 77, Est GFR (MDRD) Non-Af 64, BUN/Creatinine Ratio 16.4, Glucose 90, Calcium 8.8 03/25/23 03:34: WBC 6.6, RBC 4.68, Hgb 14.7, Hct 43.1, MCV 92.1, MCH 31.4, MCHC 34.1, Plt Count 132 L, MPV 9.5, Sodium 139, Potassium 3.8, Chloride 107, Carbon Dioxide 26.0, Anion Gap 6, BUN 18, Creatinine 1.12, Est GFR (MDRD) Af Amer 85, Est GFR (MDRD) Non-Af 71, BUN/Creatinine Ratio 16.1, Glucose 84, Calcium 8.5, Total Bilirubin 0.50, Triglycerides 202 H, Cholesterol 154, LDL Cholesterol 74, VLDL Cholesterol 40, HDL Cholesterol 40 03/25/23 10:33: APTT 25.4 Rhythm: NSR Radiography Diagnostic Testing: Radiology Impression Chest X-Ray 03/24/23 21:20 IMPRESSION: Subtle right basilar pulmonary opacity may be atelectasis or pneumonia. Electronically Signed: Will Jacobson DO at 21:34 EST , Chest CTA 03/25/23 00:38 IMPRESSION: undefined 03/25/23 1719 <Electronically signed by Darin Alexander MD> Cosigner Signature (if applicable): 03/25/23 1136 <Electronically signed by Yeni DURAN PA> CC: Dr. Darin Alexander MD; Dr. Shan Christianson MD; Dr. Mary Ellen Edmondson DO~ Signed [facility] Work Phone: 1(395) 737-205711-14-2023 Progress note Author Claudia Johnson [facility] March 25, 2023 3:32pm Note Date/Time March 25, 2023 3:32pm [facility] Medical Records Department [address] [place] [address] Progress Note - Hospitalist 03/25/23 1529 MR#: [id number] Acct: [id number] Name: JERAMY WOOD Rep #:[id number] : 1960 62 From: Claudia Johnson MD PCP: Dr. Shan Christianson MD Status:ADM CASIMIRO Location: [place] [address] Hospitalist Note 62-year-old male with history of paroxysmal atrial fibrillation and hypertensionpresented 03/24 due to chest pain. Troponins initially within normal limits however repeats continue to uptrend and cardiology was consulted and initial stress test was discontinued. Patient evaluated by cardiology, echocardiogram normal however troponins further up trended, patient started on heparin drip, continued on aspirin, statin, beta-asuncion as well as his home flecainide and plan for heart cath tomorrow 03/25/23 1532 <Electronically signed by Claudia Johnson MD> Cosigner Signature (if applicable): CC: ~ Signed [facility] Work Phone: 1(445) 660-400911-14-2023 History of Present illness Narrative* Linda Newman LPN - 03/25/2023 3:36 PM EST Scan on 03/25/2023 3:22 PM by Provider, External, PALydiaC: [facility] Progress note Author Mary Ellen Edmondson [facility] March 25, 2023 6:30am Note Date/Time March 25, 2023 6:22am [facility] Medical Records Department [address] [place] [address] Progress Note - Hospitalist 03/25/23 0621 MR#: [id number] Acct: [id number] Name: JERAMY WOOD Rep #:[id number] : 1960 62 From: Mary Ellen Edmondson DO PCP: Dr. Shan Christianson MD Status:ADM CASIMIRO Location: [place] [address] Hospitalist Note Initial cardiac enzyme on presentation was 38 with a repeat in the emergency department at 55 however his third troponin from this morning is up to 88. Given these findings and his symptoms I will go ahead and discontinue his stresstest and have cardiology evaluate him for potential cardiac catheterization given his symptoms and rising troponin. Patient does have a family history of coronary disease with his brother being diagnosed at around 60 and having stentsplaced initially at that time. Patient reports that he has his most recent stents placed within the last year or so and he is 68 at this time. 03/25/23 06 <Electronically signed by Mary Ellen Edmondson DO> Cosigner Signature (if applicable): CC: ~ Signed ADDENDUM by Dr. Mary Ellen Edmondson DO on 03/25/23 at 0630 Addendum Will give Lovenox 90mg SQ x 1 dose with trop rise. 03/25/23 0630<Electronically signed by Mary Ellen Edmondson DO> Cosigner Signature (if applicable): cc: ~* Signed [facility] Work Phone: 1(112) 539-279911-14-2023 History and physical note Author Mary Ellen Edmondson [facility] March 25, 2023 12:48am Note Date/Time March 25, 2023 12:22am [facility] Medical Records Department [address] [place] [address] H&P Exam - Hospitalist 03/25/23 0021 MR#: [id number] Acct: [id number] Name: JERAMY WOOD Rep #:[id number] : 1960 62 From: Mary Ellen Edmondson DO PCP: Dr. Shan Christianson MD Status:ADM CASIMIRO Location: [place] [address] HPI - General General Date of Admission: 03/25/23 Date of Service: 03/25/23 Chief Complaint: Chest Pain HPI Narrative JERAMY WOOD, is a 62 M who presented to the emergency department at [facility] on 03/25/2023 complaining of chest pressure. Patient states he has had several episodes of this and is typically been happening in the morning however today he had several bouts of this. He has no associated symptoms but does complain that it is located in his central chest and radiates to his upper back and between his scapula bilaterally but favors the left slightly. He has no personal history of coronary disease however he had a brother that had stent placements and his first stent was placed when he was 60 years old. He does not utilize tobacco. He does have a history of paroxysmal atrial fibrillation for which he takes flecainide but is not anticoagulated as his [id number] score is 0. He had 3 episodes in total today. 1 this morning,1 in the afternoon, and 1 this evening. Patient states he has been able to mow his yard however he has been on a riding mower and not doing any significant physical exertion. His vital signs were unremarkable. His CBC is unremarkable other than thrombocytopenia which appears to be chronic when compared to previous data. His chemistry panel was unremarkable. His initial troponin was 38 with a repeatat 55. D-dimer was less than 0.27. Chest x-ray upon my review was unremarkablehowever radiology did describe a right lower lobe possible infiltrate versus atelectasis. EKG shows normal sinus rhythm with a first-degree heart block and no ST-T wave changes concerning for acute ischemia. With the pain radiating to his back the way that it has been I will get a CTA ofhis chest to rule out dissection. [facility] Medical History Acute embolism and thrombosis of deep vein of distal lower extremity Cardiomyopathy in other diseases classified elsewhere Encounter for screening for COVID-19 Family history of hypertension Hyperlipidemia Palpitations Paroxysmal atrial fibrillation Pure hypercholesterolemia URI (upper respiratory infection) Home Medications diphenhydramine HCl 50 mg capsule 50 mg PO QHS 12/26/21 [History Last Taken Unknown] pravastatin 10 mg tablet 10 mg PO QHS #90 tabs 02/05/23 [Rx Last Taken Unknown] flecainide 100 mg tablet 100 mg PO BID #180 tabs 03/18/23 [Rx Last Taken Unknown] metoprolol tartrate 25 mg tablet 25 mg PO BID #180 tabs 03/18/23 [Rx Last Taken Unknown] Allergy/AdvReac Type Severity Reaction Status Date / Time No Known Allergies Allergy Verified 03/24/23 20:27 Family History Father Martha Gehrig disease Mother Myocardial infarction CAD (coronary artery disease) Brother Myocardial infarction, Onset Age: 60 Hypertension Multiple sclerosis Other Family history of hypertension Surgical History History of appendectomy History of left heart catheterization (LHC) Presence of IVC filter Social History (Updated 03/25/23 @ 00:[address] Mary Ellen Edmondson DO) household members: spouse housing: house Smoking Status: Never smoker alcohol intake: current alcohol intake frequency: a few times a week Alcohol type: beer substance use type: does not use caffeine: Yes Type: coffee Number of servings: 2 what type of physical activity do you participate in: none seatbelt use: always do you feel safe at home: Yes ROS Constitutional Constitutional: Denies anorexia, change in weight, chills, fatigue, fever(s), malaise, night sweats, weakness or other Eyes Eyes: Denies blurry vision, change in eye color, change in vision, discharge from eye(s), double vision, erythema, eye pain, loss of vision or other ENT HEENT: Denies abnormal hearing, dysphagia, ear pain, epistaxis, headache(s), hearing loss, nasal congestion, nasal discharge, post nasal drip, sinus pressure, sore throat or other Cardiovascular Cardiovascular: Reports chest pain; Denies claudication, dyspnea on exertion, edema, lightheadedness, orthopnea, palpitations, paroxysmal nocturnal dyspnea, rapid heart rate, syncope or other Respiratory/Chest Respiratory/Chest: Denies cough, dyspnea, excessive phlegm production, hemoptysis, productive cough, shortness of breath at rest, shortness of breath with exertion, wheezing or other Gastrointestinal Gastrointestinal: Denies abdominal pain, coffee ground emesis, constipation, diarrhea, dyspepsia, hematemesis, hematochezia, loose stools, melena, nausea, vomiting or other Genitourinary Genitourinary: Denies burning urination, difficulty urinating, dysuria, hematuria, nocturia, urinary frequency, urinary hesitancy, urinary incontinence,urinary urgency or other Musculoskeletal Musculoskeletal: Reports back pain; Denies arthralgias, joint pain, joint stiffness, joint swelling, myalgias, neck pain or other Neurologic Neurologic: Denies abnormal gait, abnormal speech, confusion, disequilibrium, dizziness, focal weakness, headache(s), numbness, paresthesias, seizure-like activity, seizures, syncope, tingling, tremor(s) or other Psychiatric Psychiatric: Denies anxiety, depression, homicidal ideation, suicidal ideation or other Endocrine Endocrinology: Denies change in body appearance, cold intolerance, excessive sweating, heat intolerance, polydipsia, polyuria or other Hematologic/Lymphatic Hematologic/Lymphatic: Denies anemia, easy bleeding, easy bruising, lymphadenopathy or other Allergic/Immunologic Allergic/Immunologic: Denies rhinitis, hives, eczemia, asthma or other Vital Signs Vital Signs Vital Signs: 03/24/23 20:28 03/24/23 21:17 03/24/23 21:18 Temperature 98.2 F Temperature Source Temporal Pulse Rate 66 62 Respiratory Rate 14 12 Respiratory Effort Normal Non-Labored Blood Pressure 133/94 H 129/92 H Blood Pressure Mean 107 104 Pulse Ox 96 97 Oxygen Delivery Method Room Air Room Air 03/24/23 22:00 03/24/23 23:00 03/25/23 00:00 Temperature Temperature Source Pulse Rate 72 75 72 Respiratory Rate 17 Respiratory Effort Blood Pressure 121/83 H Blood Pressure Mean 95 Pulse Ox 98 Oxygen Delivery Method Room Air 03/25/23 00:15 Temperature Temperature Source Pulse Rate 74 Respiratory Rate 16 Respiratory Effort Blood Pressure 121/83 H Blood Pressure Mean 95 Pulse Ox 98 Oxygen Delivery Method Weight Weight: 88.5 kg Body Mass Index (BMI) 26.4 Physical Exam Const alert, oriented x3, no apparent distress, average body habitus, healthy appearing and well nourished Constitutional Narrative: Upper middle-aged, white male, sitting up in bed, appears comfortable, nontoxic,appears stated age General Appearance: cooperative HEENT normocephalic, head/scalp atraumatic, hearing grossly normal bilaterally and moist oral mucous membranes HEENT Narrative: Mallampati 2, rash Resp normal respiratory effort, no retractions, no use of accessory muscles and clearto auscultation bilaterally Auscultation: Negative for rales, rhonchi or wheezes Cardio regular rate, regular rhythm, S1 normal heart sound, S2 normal heart sound, no murmurs, no rub, no gallops and no clicks GI normal to inspection, nondistended, normoactive bowel sounds, soft to palpation and non-tender Extremity no clubbing, cyanosis or edema Extremity Narrative: Pedal pulses are 2+ bilaterally, radial pulses are 2+ bilaterally Neuro oriented x3, moves all extremities and no focal motor deficits Speech: speech normal Psych affect normal Psych Narrative: Very pleasant, eye contact is good, patient interacts normally Results Lab / Micro Data 03/24/23 21:20 03/24/23 21:20 Labs: Laboratory Results - last 24 hr 03/24/23 21:20: WBC 7.7, RBC 4.77, Hgb 15.0, Hct 44.3, MCV 92.9, MCH 31.4, MCHC 33.9, RDW Std Deviation 41.7, RDW Coeff of Lance 12.2, Plt Count 149 L, MPV 9.5, Immature Gran % (Auto) 0.400, Neut % (Auto) 49.9, Lymph % (Auto) 34.1, [place] % (Auto) 9.9, Eos % (Auto) 4.9, Baso % (Auto) 0.8, Absolute Neuts (auto) 3.9, Absolute Lymphs (auto) 2.64, Nucleated RBC % 0, D-Dimer Quant (PE/DVT) < 0.27 L,Sodium 138, Potassium 3.9, Chloride 107, Carbon Dioxide 24.0, Anion Gap 7, BUN 20 H, Creatinine 1.22, Estim Creat Clear Calc 68.91, Est GFR (MDRD) Af Amer 77, Est GFR (MDRD) Non-Af 64, BUN/Creatinine Ratio 16.4, Glucose 90, Calcium 8.8, Troponin I High Sens 38 03/24/23 23:30: Troponin I High Sens 55 Radiology Impression Chest X-Ray 03/24/23 21:20 IMPRESSION: Subtle right basilar pulmonary opacity may be atelectasis or pneumonia. Electronically Signed: Will Jacobson, DO at 21:34 EST , Assessment & Plan Assessment/Plan (1) Chest pain: (2) Thoracic back pain: PLAN: Plan Chest pain -No associated symptoms however patient does have family history of premature coronary disease in his brother -Check lipids -Continue home statin dose for now -Start aspirin 81 mg daily -Cycle cardiac enzymes -Check CT of the chest to rule out dissection with symptoms radiating to his midthoracic region -Check a.m. treadmill stress test Chronic thrombocytopenia -This appears to be chronic -Etiology is unclear -Recommend outpatient follow-up and work-up -Patient has not had a normal platelet count ever in our system since 2013 and current count appears to be stable when compared to previous History of paroxysmal atrial fibrillation -Continue home flecainide -Continue home metoprolol -[id number] score is low at 0 therefore not anticoagulated -Continue outpatient cardiology follow-up Hyperlipidemia -Continue on pravastatin History of nonischemic cardiomyopathy -This has resolved with his last EF being 60% on echo from 04/26/2014 -Continue outpatient cardiology follow-up DVT prophylaxis -Subcu Lovenox CODE STATUS -Full code Charges/Coding Visit Charges Inpatient E&M: 49532 Init Hosp L2 03/25/23 0048 <Electronically signed by Mary Ellen Edmondson DO> Cosigner Signature (if applicable): CC: Dr. Shan Christianson MD; Dr. Mary Ellen Edmondson DO~ Signed [facility] Work Phone: 1(937) 922-845911-14-2023 Discharge summary Author Nathanael Dunne [facility] March 25, 2023 12:11am Note Date/Time March 24, 2023 9:12pm [facility] Medical Records Department [address] [place] [id number] Emergency Department Summary 03/24/23 MR#: [id number] Acct: [id number] Name: JERAMY WOOD Rep #:[id number] : 1960 62 From: Nathanael Dunne MD PCP: Dr. Shan Christianson MD Status:REG ER Location: ED HPI History of Present Illness Chief Complaint: Chest Pain Narrative Narrative: 62-year-old male past medical history of atrial fibrillation, not on blood thinners, hypercholesterolemia, presents with his because of intermittent back pain that he has been having over the last few days. He also gets the chest pressure. He states the pain is between his shoulder blades and radiates downward at times. He denies any fevers or chills, no cough. He was able to mow the lawn today without incident. There is no predictability of the pain that he has between his shoulder blades and in his chest. He denies any leg swelling. He states that the pain is fleeting and does not really last more than a minute. Although he did not really have problems today, while he was in the emergency department he had 2 episodes of this fleeting pain. He was told by his analytics specialist to come to the emergency department for evaluation. [facility] Medical History Acute embolism and thrombosis of deep vein of distal lower extremity Cardiomyopathy in other diseases classified elsewhere Encounter for screening for COVID-19 Family history of hypertension Hyperlipidemia Palpitations Paroxysmal atrial fibrillation Pure hypercholesterolemia URI (upper respiratory infection) Home Medications diphenhydramine HCl 50 mg capsule 50 mg PO QHS 12/26/21 [History Last Taken Unknown] pravastatin 10 mg tablet 10 mg PO QHS #90 tabs 02/05/23 [Rx Last Taken Unknown] flecainide 100 mg tablet 100 mg PO BID #180 tabs 03/18/23 [Rx Last Taken Unknown] metoprolol tartrate 25 mg tablet 25 mg PO BID #180 tabs 03/18/23 [Rx Last Taken Unknown] Allergy/AdvReac Type Severity Reaction Status Date / Time No Known Allergies Allergy Verified 03/24/23 20:27 Family History Father Martha Gehrig disease Mother Myocardial infarction CAD (coronary artery disease) Brother Myocardial infarction, Onset Age: 60 Hypertension Multiple sclerosis Other Family history of hypertension Surgical History History of appendectomy History of left heart catheterization (LHC) Presence of IVC filter Social History Smoking Status: Never smoker alcohol intake: current alcohol intake frequency: a few times a week Alcohol type: beer substance use type: does not use caffeine: Yes Type: coffee Number of servings: 2 what type of physical activity do you participate in: none seatbelt use: always do you feel safe at home: Yes ROS ROS ED ROS Narrative Constitutional: No fever, no chills. HEENT: No sore throat. No neck pain. No loss of vision. No rhinorrhea. Cardiovascular: Positive chest pain. Positive back pain between shoulder blades. No palpitations. No pedal edema. Respiratory: No cough, no shortness of breath. Abdominal: No abdominal pain. No nausea. No vomiting. Genitourinary: No dysuria. No hematuria. Musculoskeletal: No myalgias. No arthralgias. Neurologic: No headaches. No dizziness. No lightheadedness. Skin: No rash. No change in color. Psychiatric: No depression. No anxiety. EXAM Physical Exam Const Vital Signs: 03/24/23 20:28 03/24/23 21:17 03/24/23 21:18 Temperature 98.2 F Temperature Source Temporal Pulse Rate 66 62 Respiratory Rate 14 12 Respiratory Effort Normal Non-Labored Blood Pressure 133/94 H 129/92 H Blood Pressure Mean 107 104 Pulse Ox 96 97 Oxygen Delivery Method Room Air Room Air Heart Score History: Slightly/Non-Suspicious ECG: Normal Age: >45 - <65 years Risk Factors: 1 or 2 Risk Factors Score: 2 MDM MDM MDM Narrative Medical decision making narrative: In the differential diagnosis is acute coronary syndrome/ischemic pain versus aortic dissection versus pneumothorax versus pneumonia. I have lower suspicion of aortic dissection as he has equal pulses and appropriate blood pressure in the emergency department. He denies any tearing sensation to his back. I have lower suspicion for PE as well as he is PERC negative. I do not feel CTA is currently indicated. I will obtain a D-dimer to help rule out a PE and dissection as well. His history and physical is not supportive of a pneumothorax or pneumonia. EKG was obtained and interpreted by myself independently as normal sinus rhythm/bradycardia at 59 bpm without ectopy or acute ST changes. No STEMI. 1 view chest x-rays obtained and reviewed by myself independently, I do not see pneumothorax or consolidation or widened mediastinum. I reviewed the radiology report which confirms my independent interpretation and remarks on atelectasis in the right lobe versus consolidation. I do not feel antibiotics are indicatedbecause he does not have a high fever or white count. He has normal pulse ox. I reviewed his laboratory work and his white count is normal at 7.7, hemoglobin stable at 15.0, platelet count slightly low at 149 which I think is nonspecific,D-dimer is negative at less than 0.27, hence I have low suspicion for pulmonary embolism or aortic dissection. He does not have any tearing sensation in his back. BMP shows slight elevation of his BUN with a normal creatinine. Initial high-sensitivity troponin is 38. Patient declined any analgesics here in the emergency department. He is resting comfortably upon repeat examination. At this point in time, he will be signed out to the oncoming physician, Dr. Damion Cuellar to check the repeat troponin. I feel as long as it is negative, that he would be able to be discharged to follow-up with his primary care provider. He and his state that they were sent by the analytics specialist to help rule out the chest pain portion. He may be having more thoracic back pain and radiculopathy. I anticipate his discharge pending his troponin. Patient is in stable condition. History & Record Review Discussion w/independent historian: Patient and Family Additional record(s) reviewed:: Prior ED visit Lab Data Attestation: I reviewed the patient's lab results. Labs: Laboratory Results - last 24 hr 03/24/23 21:20 WBC 7.7 RBC 4.77 Hgb 15.0 Hct 44.3 MCV 92.9 MCH 31.4 MCHC 33.9 RDW Std Deviation 41.7 RDW Coeff of Lance 12.2 Plt Count 149 L MPV 9.5 Immature Gran % (Auto) 0.400 Neut % (Auto) 49.9 Lymph % (Auto) 34.1 [place] % (Auto) 9.9 Eos % (Auto) 4.9 Baso % (Auto) 0.8 Absolute Neuts (auto) 3.9 Absolute Lymphs (auto) 2.64 Nucleated RBC % 0 D-Dimer Quant (PE/DVT) < 0.27 L Sodium 138 Potassium 3.9 Chloride 107 Carbon Dioxide 24.0 Anion Gap 7 BUN 20 H Creatinine 1.22 Estim Creat Clear Calc 68.91 Est GFR (MDRD) Af Amer 77 Est GFR (MDRD) Non-Af 64 BUN/Creatinine Ratio 16.4 Glucose 90 Calcium 8.8 Troponin I High Sens 38 Radiography Diagnostic Testing: Clinical Impression(s) from Imaging Studies Chest X-Ray 03/24/23 21:20 IMPRESSION: Subtle right basilar pulmonary opacity may be atelectasis or pneumonia. Electronically Signed: Will VNydia Jacobson DO at 21:34 EST , Discharge Plan Triage Chief Complaint: Chest Pain ED Provider: Nathanael Dunne Dx/Rx/DC Orders Clinical Impression: Thoracic back pain, Chest pain Instructions: ED Chest Pain, Uncertain Cause, ED Pain, Acute, Uncertain Cause Prescriptions: No Action diphenhydramine HCl 50 mg capsule 50 mg PO QHS pravastatin 10 mg tablet 10 mg PO QHS Qty: 90 3RF metoprolol tartrate 25 mg tablet 25 mg PO BID Qty: 180 3RF flecainide 100 mg tablet 100 mg PO BID Qty: 180 3RF Primary Care Provider: Shan Christianson Referrals: Shan Christianson MD [Primary Care Provider] - Disposition Disposition: Home, Self Care What to do if you have Problems For any increased pain, shortness of breath, bleeding, nausea or vomiting, chestpain, or any unexpected problems, contact your Primary Care Provider. Call [facility] ([phone]) or report to the closest Emergency Room. Call 911 if necessary. 03/24/232221 <Electronically signed by Nathanael Dunne MD> Cosigner Signature (if applicable): CC: Dr. Shan Christianson MD ~ Signed ADDENDUM by Dr. Nathanael Dunne MD on 03/25/23 at 0011 I was still available for his repeat troponin which has gone up by more than 7. Although current guidelines say not greater than 20, patient did have an episodeof chest pain which she states doubled him over the bed. At this point in time,given his continuing symptoms, I will speak with the hospitalist regarding observation. Patient is in stable condition. 03/25/2310<Electronically signed by Nathanael Dunne MD> Cosigner Signature (if applicable): cc: Dr. Shan Christianson MD ~* Signed [facility] Work Phone: 1(280) 163-847611-13-2023 Discharge summary Author Nathanael Dunne [facility] March 25, 2023 12:11am Note Date/Time March 24, 2023 9:12pm [facility] Medical Records Department [address] [place] [address] Emergency Department Summary 03/24/23 MR#: [id number] Acct: [id number] Name: JEARMY OWOD Rep #:[id number] : 1960 62 From: Nathanael Dunne MD PCP: Dr. Shan Christianson MD Status:REG ER Location: ED HPI History of Present Illness Chief Complaint: Chest Pain Narrative Narrative: 62-year-old male past medical history of atrial fibrillation, not on blood thinners, hypercholesterolemia, presents with his because of intermittent back pain that he has been having over the last few days. He also gets the chest pressure. He states the pain is between his shoulder blades and radiates downward at times. He denies any fevers or chills, no cough. He was able to mow the lawn today without incident. There is no predictability of the pain that he has between his shoulder blades and in his chest. He denies any leg swelling. He states that the pain is fleeting and does not really last more than a minute. Although he did not really have problems today, while he was in the emergency department he had 2 episodes of this fleeting pain. He was told by his analytics specialist to come to the emergency department for evaluation. [facility] Medical History Acute embolism and thrombosis of deep vein of distal lower extremity Cardiomyopathy in other diseases classified elsewhere Encounter for screening for COVID-19 Family history of hypertension Hyperlipidemia Palpitations Paroxysmal atrial fibrillation Pure hypercholesterolemia URI (upper respiratory infection) Home Medications diphenhydramine HCl 50 mg capsule 50 mg PO QHS 12/26/21 [History Last Taken Unknown] pravastatin 10 mg tablet 10 mg PO QHS #90 tabs 02/05/23 [Rx Last Taken Unknown] flecainide 100 mg tablet 100 mg PO BID #180 tabs 03/18/23 [Rx Last Taken Unknown] metoprolol tartrate 25 mg tablet 25 mg PO BID #180 tabs 03/18/23 [Rx Last Taken Unknown] Allergy/AdvReac Type Severity Reaction Status Date / Time No Known Allergies Allergy Verified 03/24/23 20:27 Family History Father Martha Gehrig disease Mother Myocardial infarction CAD (coronary artery disease) Brother Myocardial infarction, Onset Age: 60 Hypertension Multiple sclerosis Other Family history of hypertension Surgical History History of appendectomy History of left heart catheterization (LHC) Presence of IVC filter Social History Smoking Status: Never smoker alcohol intake: current alcohol intake frequency: a few times a week Alcohol type: beer substance use type: does not use caffeine: Yes Type: coffee Number of servings: 2 what type of physical activity do you participate in: none seatbelt use: always do you feel safe at home: Yes ROS ROS ED ROS Narrative Constitutional: No fever, no chills. HEENT: No sore throat. No neck pain. No loss of vision. No rhinorrhea. Cardiovascular: Positive chest pain. Positive back pain between shoulder blades. No palpitations. No pedal edema. Respiratory: No cough, no shortness of breath. Abdominal: No abdominal pain. No nausea. No vomiting. Genitourinary: No dysuria. No hematuria. Musculoskeletal: No myalgias. No arthralgias. Neurologic: No headaches. No dizziness. No lightheadedness. Skin: No rash. No change in color. Psychiatric: No depression. No anxiety. EXAM Physical Exam Const Vital Signs: 03/24/23 20:28 03/24/23 21:17 03/24/23 21:18 Temperature 98.2 F Temperature Source Temporal Pulse Rate 66 62 Respiratory Rate 14 12 Respiratory Effort Normal Non-Labored Blood Pressure 133/94 H 129/92 H Blood Pressure Mean 107 104 Pulse Ox 96 97 Oxygen Delivery Method Room Air Room Air Heart Score History: Slightly/Non-Suspicious ECG: Normal Age: >45 - <65 years Risk Factors: 1 or 2 Risk Factors Score: 2 MDM MDM MDM Narrative Medical decision making narrative: In the differential diagnosis is acute coronary syndrome/ischemic pain versus aortic dissection versus pneumothorax versus pneumonia. I have lower suspicion of aortic dissection as he has equal pulses and appropriate blood pressure in the emergency department. He denies any tearing sensation to his back. I have lower suspicion for PE as well as he is PERC negative. I do not feel CTA is currently indicated. I will obtain a D-dimer to help rule out a PE and dissection as well. His history and physical is not supportive of a pneumothorax or pneumonia. EKG was obtained and interpreted by myself independently as normal sinus rhythm/bradycardia at 59 bpm without ectopy or acute ST changes. No STEMI. 1 view chest x-rays obtained and reviewed by myself independently, I do not see pneumothorax or consolidation or widened mediastinum. I reviewed the radiology report which confirms my independent interpretation and remarks on atelectasis in the right lobe versus consolidation. I do not feel antibiotics are indicatedbecause he does not have a high fever or white count. He has normal pulse ox. I reviewed his laboratory work and his white count is normal at 7.7, hemoglobin stable at 15.0, platelet count slightly low at 149 which I think is nonspecific,D-dimer is negative at less than 0.27, hence I have low suspicion for pulmonary embolism or aortic dissection. He does not have any tearing sensation in his back. BMP shows slight elevation of his BUN with a normal creatinine. Initial high-sensitivity troponin is 38. Patient declined any analgesics here in the emergency department. He is resting comfortably upon repeat examination. At this point in time, he will be signed out to the oncoming physician, Dr. Damion Cuellar to check the repeat troponin. I feel as long as it is negative, that he would be able to be discharged to follow-up with his primary care provider. He and his state that they were sent by the analytics specialist to help rule out the chest pain portion. He may be having more thoracic back pain and radiculopathy. I anticipate his discharge pending his troponin. Patient is in stable condition. History & Record Review Discussion w/independent historian: Patient and Family Additional record(s) reviewed:: Prior ED visit Lab Data Attestation: I reviewed the patient's lab results. Labs: Laboratory Results - last 24 hr 03/24/23 21:20 WBC 7.7 RBC 4.77 Hgb 15.0 Hct 44.3 MCV 92.9 MCH 31.4 MCHC 33.9 RDW Std Deviation 41.7 RDW Coeff of Lance 12.2 Plt Count 149 L MPV 9.5 Immature Gran % (Auto) 0.400 Neut % (Auto) 49.9 Lymph % (Auto) 34.1 [place] % (Auto) 9.9 Eos % (Auto) 4.9 Baso % (Auto) 0.8 Absolute Neuts (auto) 3.9 Absolute Lymphs (auto) 2.64 Nucleated RBC % 0 D-Dimer Quant (PE/DVT) < 0.27 L Sodium 138 Potassium 3.9 Chloride 107 Carbon Dioxide 24.0 Anion Gap 7 BUN 20 H Creatinine 1.22 Estim Creat Clear Calc 68.91 Est GFR (MDRD) Af Amer 77 Est GFR (MDRD) Non-Af 64 BUN/Creatinine Ratio 16.4 Glucose 90 Calcium 8.8 Troponin I High Sens 38 Radiography Diagnostic Testing: Clinical Impression(s) from Imaging Studies Chest X-Ray 03/24/23 21:20 IMPRESSION: Subtle right basilar pulmonary opacity may be atelectasis or pneumonia. Electronically Signed: Will Jacobson DO at 21:34 EST , Discharge Plan Triage Chief Complaint: Chest Pain ED Provider: Nathanael Dunne Dx/Rx/DC Orders Clinical Impression: Thoracic back pain, Chest pain Instructions: ED Chest Pain, Uncertain Cause, ED Pain, Acute, Uncertain Cause Prescriptions: No Action diphenhydramine HCl 50 mg capsule 50 mg PO QHS pravastatin 10 mg tablet 10 mg PO QHS Qty: 90 3RF metoprolol tartrate 25 mg tablet 25 mg PO BID Qty: 180 3RF flecainide 100 mg tablet 100 mg PO BID Qty: 180 3RF Primary Care Provider: Shan Christianson Referrals: Shan Christianson MD [Primary Care Provider] - Disposition Disposition: Home, Self Care What to do if you have Problems For any increased pain, shortness of breath, bleeding, nausea or vomiting, chestpain, or any unexpected problems, contact your Primary Care Provider. Call [facility] ([phone]) or report to the closest Emergency Room. Call 911 if necessary. 03/24/232221 <Electronically signed by Nathanael Dunne MD> Cosigner Signature (if applicable): CC: Dr. Shan Christianson MD ~ Signed ADDENDUM by Dr. Nathanael Dunne MD on 03/25/23 at 0011 I was still available for his repeat troponin which has gone up by more than 7. Although current guidelines say not greater than 20, patient did have an episodeof chest pain which she states doubled him over the bed. At this point in time,given his continuing symptoms, I will speak with the hospitalist regarding observation. Patient is in stable condition. 03/25/23 001<Electronically signed by Nathanael Dunne MD> Cosigner Signature (if applicable): cc: Dr. Shan Christianson MD ~* Signed [facility] Work Phone: 1(552) 138-495710-25-2023 History of Present illness Narrative* Shon Velasquez LPN - 03/05/2023 8:24 AM EDT Scan on 03/04/2023 3:33 PM by Provider, [facility] [place]: Consultation - [facility] Miscellaneous Notes* Telephone Encounter - Shon Velasquez LPN - 01/03/2023 2:20 PM EDT Form has been signed by Dr Christianson and has been faxed back. Copy sent to scanning. Pt aware of same and will picker packer original copy form Med Rec next week. Copy placed in Med Rec. Shon Velasquez LPN * Telephone Encounter - Shon Velasquez LPN - 01/02/2023 2:39 PM EDT Pt saw Mayuri 01/02/23 for Disability Physical. Pt's form has been completed and placed on Dr Christianson's desk for signature. Please fax to [phone](number is on front page of form). Place copy in scanning and contact pt to see if he wants to picker packer original copy or have copy mailed to him. Shon Velasquez LPN [facility]23 Instructions* Patient Instructions* Mayuri Collins PA-C - 01/02/2023 12:22 PM EDT Check with insurance on coverage for shingles vaccine (shingrix). [facility] History of Present illness Narrative* Mayuri Collins PA-C - 01/02/2023 12:06 PM EDT Chief Complaint Patient presents with: Yearly Exam: Disability exam HPI Jeramy Wood is a 62 year old male who presents here today for wellness exam/physical. Patient with hx a.fib, hyperlipidemia, chronic abdominal wall pain/defect leading to watermaster disability, Prostate cancer, BPH, and those as below. Patient has been noting some acid reflux for the past month. A few times per week he is awaking in middle of night with heart burn. Also has been noting some vertigo for the past 3 weeks. Comes and goes. Mostly with turning to leftside. Has had in past. Otherwise doing well. Past medical history, appointments, medications, allergies reviewed. Previous Medical History PAST MEDICAL HISTORY Diagnosis Date Abdominal wall hernia 02/26/2013 Abdominal wall pain 01/01/2022 Acquired abdominal wall defect 03/13/2016 Acute embolism and thrombosis of deep vein of distal lower extremity (HCC) Acute renal failure (HCC) 06/01/2010 SECONDARY TO SEPTIC SHOCK, RECOVERED ON OWN Anxiety 03/10/2017 Atrial fibrillation (HCC) 12/18/2005 Benign prostatic hyperplasia with urinary frequency 02/08/2019 Sees Kay Duran NP with Dr. Jama BPH (benign prostatic hyperplasia) 05/21/2022 Dr. Jama. S/p TURP Cardiomyopathy in diseases classified elsewhere (HCC) Cardiomyopathy, nonischemic (HCC) 02/08/2019 associated with atrial fibrillation--well controlled. 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 Maher Septic shock(785.52) 06/01/2010 Small bowel obstruction (HCC) FOUND 06-01-10 ? FROM LAPRASCOPUIC HERNIA SURGERY Well adult exam 12/29/2020 Last done: 01/01/2022 Previous Surgical History PAST SURGICAL HISTORY Procedure Laterality Date ARTL CATHJ/CANNULJ MNTR/TRANSFUSION SPX PRQ 05-30-10 COLONOSCOPY 07/03/10 EXPLORATION ABDOMINAL WALL 06/13/10 evacuation abdominal hematoma EXPLORATORY LAPAROTOMY, CELIOTOMY-SP 06/02/10 placement of abdominal vac-pack EXPLORATORY LAPAROTOMY, CELIOTOMY-SP 06/02/10 bowel resection, abdominal wash out EXPLORATORY LAPAROTOMY, CELIOTOMY-SP 06/08/10 small bowel anastomosis INGUINAL HERNIA REPAIR HX Bilateral 05/28/2010 IR IVC FILTER PLACEMENT 07/19/2010 Bard Eclipse Filter LAPAROSCOPY APPENDECTOMY 2019 NASAL SEPTUM REPOS W STABILIZATION 1979 PAST SURGICAL HISTORY OF 06/05/10 reopening of recent laparotomy PAST SURGICAL HISTORY OF 06/11/10 reopening of recent laparotomy, removal infected mesh PAST SURGICAL HISTORY OF 06/14/10 reopening of recent laparotomy, abdominal wash out PAST SURGICAL HISTORY OF Left Heart catheterization UPPER GI ENDOSCOPY DIAGNOSTIC 07/02/10 Family History FAMILY HISTORY Problem Relation Age of Onset Colon Cancer Mother 70 Coronary Artery Disease Mother other (Heart Disease) Mother other (amyotropic lateral sclerosis) Father Multiple Sclerosis Brother Multiple Sclerosis Sister Diabetes Maternal Grandfather Patient Allergies ALLERGIES Allergen Reactions No Known Drug Aller* Other: See Comments Current Medications Current Outpatient Medications on File Prior to Visit Medication Sig Lactobacillus acidophilus (FLORAJEN ACIDOPHILUS ORAL) Take by mouth. metoprolol tartrate, short acting, (LOPRESSOR) 25 mg tablet Take 1 tablet by mouth twice daily. COMPOUNDED PRESCRIPTION OTC sleep aid Diphenhydramine 50 mg flecainide (TAMBOCOR) 100 mg tablet Take 1 tablet by mouth twice daily. pravastatin (PRAVACHOL) 10 mg tablet Take 10 mg by mouth once daily. ciprofloxacin HCl (CIPRO) 500 mg tablet Take by mouth twice daily. (Patient not taking: Reported on05/31/2022) Lactobacillus acidophilus (PROBIOTIC ORAL) Take by mouth. tamsulosin (FLOMAX) 0.4 mg Take 1 capsule by mouth daily at bedtime. Per Urology, Dr. Maher (Patient not taking: Reported on 05/31/2022) aspirin, enteric coated (ASPIRIN, ENTERIC COATED) 81 mg EC tablet 1 tablet daily (Patient not taking: Reported on 02/19/2022) No current facility-administered medications on file prior to visit. Social History Social History Tobacco Use Smoking status: Never Smokeless tobacco: Never Vaping Use Vaping Use: Never used Substance Use Topics Alcohol use: Yes Alcohol/week: 140.0 standard drinks of alcohol Comment: SOCIAL BEER Drug use: No Review of Symptoms REVIEW OF SYSTEMS GENERAL: No weight loss, malaise or fevers HEENT: No changes in hearing or vision, no nose bleeds or other nasal problems NECK: Negative for lumps, goiter, pain and significant neck swelling RESPIRATORY: Negative for cough, hemoptysis, wheezing, COPD, dyspnea or shortness of breath CARDIOVASCULAR: Negative for chest pain, leg swelling, CHF or palpitations GI: Negative for abdominal discomfort, blood in stools or black stools, change in bowel habit, nausea, vomiting and See HPI : No history of dysuria, frequency or incontinence MUSCULOSKELETAL: Negative for joint pain or swelling, back pain or muscle pain SKIN: Negative for lesions, rash, and itching PSYCH: Negative for sleep disturbance, mood disorder and recent psychosocial stressors HEMATOLOGY/LYMPHOLOGY: Negative for prolonged bleeding, bruising easily or swollen nodes ENDOCRINE: Negative for cold or heat intolerance, polyuria, polydipsia and goiter NEURO: No history of headaches, syncope, paralysis, seizures or tremors EXAM: BP 100/70 (BP Site: Right Arm, BP Position: Sitting, BP Cuff Size: Large Adult) Pulse 84 Temp 36.5 C (97.7 F) Resp 18 Ht 182 cm (5' 11.65) Wt 86.6 kg (191 lb) BMI 26.16 kg/m General Appearance: Well appearing, alert, in no acute distress, well-hydrated, well nourished.. Skin: Skin color, texture, turgor normal, no suspicious rashes or lesions. Head: Normocephalic, no masses, lesions, tenderness or abnormalities. Eyes: Anicteric sclera. Pupils are equally round and reactive to light. Extraocular movements are intact. . Ears: External ears normal, canals clear, TMs pearly gatica. Nose/Sinuses: Nares normal, septum midline, mucosa normal, no drainage or sinus tenderness. Oropharynx: Lips, mucosa, and tongue normal, teeth and gums normal, oropharynx normal. Neck: Supple, no adenopathy; thyroid symmetric, normal size, no bruits. Lungs: Lungs clear to auscultation. No wheezing, rhonchi, rales.. Heart: RRR without murmur, gallop, or rubs. No ectopy. Abdomen: significant scaring noted. Tender to palpation. No organomegaly appreciated. BS+. Extremities: No deformities, edema, skin discoloration, clubbing or cyanosis. Good capillary refill. . Peripheral Pulses: Normal. Neurologic: Gait normal. Reflexes normal and symmetric. Sensation grossly intact.. Health Maintenance List SHINGRIX VACCINE(1 of 2) Never done COLORECTAL CANCER SCREENING due on 01/12/2022 DEPRESSION ASSESSMENT Never done INFLUENZA(1) due on 01/10/2023 DTAP,TDAP,TD(3 - Td or Tdap) due on 10/03/2025 DIABETES SCREEN due on 01/01/2026 PROSTATE CANCER SCREENING DISCUSSION due on 09/28/2027 LIPID SCREEN due on 01/02/2028 HEPATITIS C SCREENING Completed COVID-19 VACCINE Completed HPV VACCINE Aged Out HIV SCREENING Discontinued Data reviewed Component Latest Ref Rng & Units 01/01/2023 WBC 3.70 - 11.00 k/uL 6.10 RBC 4.20 - 6.00 m/uL 4.99 Hemoglobin 13.0 - 17.0 g/dL 15.8 Hematocrit 39.0 - 51.0 % 45.7 MCV 80.0 - 100.0 fL 91.6 MCH 26.0 - 34.0 pg 31.7 MCHC 30.5 - 36.0 g/dL 34.6 RDW-CV 11.5 - 15.0 % 12.8 Platelet Count 150 - 400 k/uL 155 MPV 9.0 - 12.7 fL 10.3 Neut% % 49.3 Abs Neut (ANC) 1.45 - 7.50 k/uL 3.01 Lymph% % 33.3 Abs Lymph 1.00 - 4.00 k/uL 2.03 [place]% % 9.2 Abs [place] <0.87 k/uL 0.56 Eosin% % 7.4 Abs Eosin <0.46 k/uL 0.45 Baso% % 0.5 Abs Baso <0.11 k/uL 0.03 Immature Gran % % 0.3 IMMATURE GRANS (ABS) <0.10 k/uL <0.03 NRBC /100 WBC 0.0 Absolute nRBC <0.01 k/uL <0.01 DTYPE Auto Protein, Total 6.3 - 8.0 g/dL 7.3 Albumin 3.9 - 4.9 g/dL 4.6 Calcium 8.5 - 10.2 mg/dL 10.0 Bilirubin, Total 0.2 - 1.3 mg/dL 0.8 Alkaline Phosphatase 38 - 113 U/L 73 AST 14 - 40 U/L 39 ALT 10 - 54 U/L 53 Glucose 74 - 99 mg/dL 95 BUN 9 - 24 mg/dL 18 Creatinine 0.73 - 1.22 mg/dL 1.16 Sodium 136 - 144 mmol/L 137 Potassium 3.7 - 5.1 mmol/L 4.2 Chloride 97 - 105 mmol/L 104 CO2 22 - 30 mmol/L 23 Anion Gap 9 - 18 mmol/L 10 eGFR >=60 mL/min/1.73m 71 Color Yellow Light Yellow Clarity Clear Clear Glucose, Urine Trace, Negative Negative Bilirubin, Urine Negative Negative Ketones, Urine Trace, Negative Negative Specific [place], Ur 1.005 - 1.030 1.019 Hemoglobin/Blood,Ur Negative, Trace Negative pH, Urine 5.0 - 8.0 6.5 Protein, Urine Trace, Negative Negative Urobilinogen Negative Negative Nitrites Negative Negative Leukest Negative, 25 Mt/uL Negative WBC, Urine 0-5 /HPF 0-5 /HPF RBC, Urine 0-3 /HPF 0-3 /HPF Epithelial Cells /HPF Few Total Cholesterol, Nonfasting <200 mg/dL 173 Triglycerides, Nonfasting <150 mg/dL 199 (H) HDL Cholesterol, Nonfasting >39 mg/dL 37 (L) LDL Cholesterol, Nonfasting <100 mg/dL 96 Non HDL Cholesterol, Nonfasting <130 mg/dL 136 (H) VLDL Cholesterol, Nonfasting <30 mg/dL 40 (H) Total Chol/HDL Ratio, Nonfasting <5.10 mg/dL 4.68 LDL/HDL Ratio, Nonfasting <2.54 mg/dL 2.59 (H) ASSESSMENT/PLAN: 1. Well adult exam - ICD9: V70.0, ICD10: Z00.00 (primary diagnosis) - Counseled on healthy diet and regular exercise - Follow up for annual exam in one year 2. Mixed hyperlipidemia - ICD9: 272.2, ICD10: E78.2 - fairly well Controlled - Counseled on healthy diet and regular exercise - Discussed need for and benefit of weight loss. BMI 26.15 kg/(m^2) 3. Paroxysmal atrial fibrillation (HCC) - ICD9: 427.31, ICD10: I48.0 Cont with cardio 4. Benign prostatic hyperplasia with urinary frequency - ICD9: 600.01, 788.41, ICD10: N40.1, R35.0 chronic Continue with urology 5. Benign prostatic hyperplasia with urinary retention - ICD9: 600.01, 788.20, ICD10: N40.1, R33.8 Cont with urol 6. Abdominal wall pain - ICD9: 789.00, ICD10: R10.9 No changes in tx plan. Patient needs to avoid abdominal strain 7. Acquired abdominal wall defect - ICD9: 738.8, ICD10: M95.8 As #6 8. Prostate cancer (HCC) - ICD9: 185, ICD10: C61 Cont with uro.. Mayuri Collins PA-C documented [facility] this encounterK[facility]23 Miscellaneous Notes* Telephone Encounter - Awa Mann RN - 06/06/2022 11:51 AM EST Pt called and is notified of providers results and instructions. Pt voices understanding. Awa Mann RN * Telephone Encounter - Melita Garcia LPN - 06/06/2022 11:33 AM EST Left message to call office. 06/06/2022 11:33 AM Melita Garcia LPN * Telephone Encounter - Mayuri Collisn PA-C - 06/06/2022 11:16 AM EST Let patient know that his PFT was normal. Cont as discussed with dr. Christianson. documented in this encounterK[facility]01-24-2023 History of Present illness Narrative* CLARA Raygoza - 06/04/2022 9:58 AM EST PULM FUNCTION SMARTBLOCK: Provider: Shan Christianson MD Assisting Tech: CLARA Raygoza Spirometry w/BD: 1 documented in this encounterK[facility]01-20-2023 History of Present illness Narrative* Shan Christianson MD - 05/31/2022 11:03 AM EST Chief Complaint Patient presents with: Cough HPI Jeramy Wood is a 61 year old male who presents here today for patient was scheduled for persistant. Indicated that he was in the hospital and has questions regarding this also. Patient was not a smoker. Has GERD on occasion. May need something once every so many months. Certain foods do not provoke his cough. It comes and goes and has had this for several years. Of note he has been intubated several times. Has some post nasal drainage sensation and does clear his throat daily. Sometimes may have slight shortness of breath with the cough. Not aware of wheezing. Will feel a irritation in the upper mid chest that makes him feel like he needs to cough. Denies any AM sour taste. Chest x-rays dome 02/12/2022 and 05/12/2022 were both read as unremarkable. Cough may be increased with being in a reclined position. Past medical history, appointments, medications, allergies reviewed. Previous Medical History PAST MEDICAL HISTORY Diagnosis Date Abdominal wall hernia 02/26/2013 Abdominal wall pain 01/01/2022 Acquired abdominal wall defect 03/13/2016 Acute embolism and thrombosis of deep vein of distal lower extremity (HCC) Acute renal failure (HCC) 06/01/2010 SECONDARY TO SEPTIC SHOCK, RECOVERED ON OWN Anxiety 03/10/2017 Atrial fibrillation (HCC) 12/18/2005 Benign prostatic hyperplasia with urinary frequency 02/08/2019 Sees Kay Duran NP with Dr. Jama Cardiomyopathy in diseases classified elsewhere ([facility]) Cardiomyopathy, nonischemic (HCC) 02/08/2019 associated with atrial fibrillation--well controlled. 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 FROM LAPRASCOPUIC HERNIA SURGERY Well adult exam 12/29/2020 Last done: 01/01/2022 Previous Surgical History PAST SURGICAL HISTORY Procedure Laterality Date ARTL CATHJ/CANNULJ MNTR/TRANSFUSION SPX PRQ 05-30-10 COLONOSCOPY 07/03/10 EXPLORATION ABDOMINAL WALL 06/13/10 evacuation abdominal hematoma EXPLORATORY LAPAROTOMY, CELIOTOMY-SP 06/02/10 placement of abdominal vac-pack EXPLORATORY LAPAROTOMY, CELIOTOMY-SP 06/02/10 bowel resection, abdominal wash out EXPLORATORY LAPAROTOMY, CELIOTOMY-SP 06/08/10 small bowel anastomosis INGUINAL HERNIA REPAIR HX Bilateral 05/28/2010 IR IVC FILTER PLACEMENT 07/19/2010 Bard Eclipse Filter LAPAROSCOPY APPENDECTOMY 2019 NASAL SEPTUM REPOS W STABILIZATION 1979 PAST SURGICAL HISTORY OF 06/05/10 reopening of recent laparotomy PAST SURGICAL HISTORY OF 06/11/10 reopening of recent laparotomy, removal infected mesh PAST SURGICAL HISTORY OF 06/14/10 reopening of recent laparotomy, abdominal wash out PAST SURGICAL HISTORY OF Left Heart catheterization UPPER GI ENDOSCOPY DIAGNOSTIC 07/02/10 Family History FAMILY HISTORY Problem Relation Age of Onset Colon Cancer Mother 70 Coronary Artery Disease Mother other (Heart Disease) Mother other (amyotropic lateral sclerosis) Father Multiple Sclerosis Brother Multiple Sclerosis Sister Diabetes Maternal Grandfather Patient Allergies ALLERGIES Allergen Reactions No Known Drug Aller* Other: See Comments Current Medications Current Outpatient Medications on File Prior to Visit Medication Sig Lactobacillus acidophilus (PROBIOTIC ORAL) Take by mouth. Lactobacillus acidophilus (FLORAJEN ACIDOPHILUS ORAL) Take by mouth. metoprolol tartrate, short acting, (LOPRESSOR) 25 mg tablet Take 1 tablet by mouth twice daily. flecainide (TAMBOCOR) 100 mg tablet Take 1 tablet by mouth twice daily. pravastatin (PRAVACHOL) 10 mg tablet Take 10 mg by mouth once daily. ciprofloxacin HCl (CIPRO) 500 mg tablet Take by mouth twice daily. (Patient not taking: Reported on05/31/2022) tamsulosin (FLOMAX) 0.4 mg Take 1 capsule by mouth daily at bedtime. Per Urology, Dr. Maher (Patient not taking: Reported on 05/31/2022) COMPOUNDED PRESCRIPTION OTC sleep aid Diphenhydramine 50 mg aspirin, enteric coated (ASPIRIN, ENTERIC COATED) 81 mg EC tablet 1 tablet daily (Patient not taking: Reported on 02/19/2022) No current facility-administered medications on file prior to visit. Social History Social History Tobacco Use Smoking status: Never Smokeless tobacco: Never Vaping Use Vaping Use: Never used Substance Use Topics Alcohol use: Yes Alcohol/week: 140.0 standard drinks Comment: SOCIAL BEER Drug use: No Review of Symptoms REVIEW OF SYSTEMS See HPI EXAM: BP 108/68 (BP Site: Left Arm, BP Position: Sitting, BP Cuff Size: Large Adult) Pulse 84 Resp 16 Wt 88.5 kg (195 lb) BMI 26.41 kg/m General Appearance: Well appearing, alert, in no acute distress, well-hydrated, well nourished.. Lungs: Lungs clear to auscultation. No wheezing, rhonchi, rales.. Heart: RRR without murmur, gallop, or rubs. No ectopy. Abdomen: Normal abdominal exam, Abdomen soft, non-tender. Bowel sounds normal. No masses, organomegaly. Health Maintenance List SHINGRIX VACCINE(1 of 2) Never done COLORECTAL CANCER SCREENING due on 01/12/2022 DEPRESSION ASSESSMENT Never done DIABETES SCREEN due on 05/21/2025 DTAP,TDAP,TD(3 - Td or Tdap) due on 10/03/2025 PROSTATE CANCER SCREENING DISCUSSION due on 02/05/2026 LIPID SCREEN due on 12/26/2026 INFLUENZA Completed HEPATITIS C SCREENING Completed COVID-19 VACCINE Completed HIV SCREENING Discontinued Data reviewed A/P ASSESSMENT/PLAN: 1. Persistent cough - ICD9: 786.2, ICD10: R05.3 (primary diagnosis) Chest x-rays done 05/12/2022 and 02/12/20[facility] were normal. Therefor need to move onto chest CT to eval for interstitial or air way changes. Check - SPIROMETRY - BASELINE AND POST DILATOR - CT CHEST WO IVCON - will get Upper GI to eval for GERD. 2. Chronic cough - ICD9: 786.2, ICD10: R05.3 Check - CT CHEST WO IVCON Will await results to determine course of action. Shan Christianson MD documented in this encounterK[facility]01-13-2023 Miscellaneous Notes* Telephone Encounter - Ming Posada MA - 05/24/2022 5:30 PM EST notified. Ming Posada MA * Telephone Encounter - Shan Christianson MD - 05/24/2022 5:01 PM EST Let know that prostate cancer does not spread to the lungs to cause a cough. It spreads to thebones like in the pelvis and spine. Also a grade 1 cancer by definition has not spread. I also looked back though my visits with Jeramy over the past 2-3 years and there is no diagnosis of a persistent cough. He should probably make an appt to discuss. * Telephone Encounter - Juan Shore RN - 05/24/2022 2:32 PM EST phoned to ask Dr. Christianson to please look at the pathology report done when patient had TURP procedure at [facility] recently. saw the report that reads adenocarcinoma of the prostate. Reports she spoke with Dr. Jama, Friday night, who reports it is grade I adenocarcinoma. reports patient has had a cough for 2 years, has had several CXR's done that show negative. Now she worries that the adenocarcinoma maybe has spread. documented in this encounterK[facility]01-11-2023 Miscellaneous Notes* Telephone Encounter - Saurabh Arceo Ma - 05/22/2022 2:23 PM EST Patient notified, verbalized understanding. Saurabh Arceo Ma * Telephone Encounter - Mayuri Collins PA-C - 05/22/2022 2:09 PM EST Let patient know that his blood counts look okay. His metabolic panel is showing elevated liver function studies. This could be from recent infection. I would like to recheck in 1 week to trend these levels. Kidney function okay. But creatinine is slightly elevated, make sure to stay hydrated. Potassium level is normal. Mayuri Collins PA-C documented in this encounterK[facility]01-10-2023 History of Present illness Narrative* Mayuri Collins PA-C - 05/21/2022 1:11 PM EST Chief Complaint Patient presents with: Hospital F/U: [facility] - 05/19/22 UTI. Doing much better, no symptoms remain. HPI Jeramy Wood is a 61 year old male who presents here today for Hospital Discharge Follow up.. Patient returned to [facility] ER on 05/13/22 due to dysuria, fevers, chills. He had recently had pseudomonas UTI and BPH dx with incomplete emptying of bladder. He was hospital in February with similar symptoms. Was set to have TURP done but patient cancelled it end of April. While in hospital urology was consulted and TURP procedure was completed on 05/15/22. Blood cultures were pos for Pseudomonas as well. Post operatively he did well. Fevers resolved and vitals improved. He was d/c home on 05/16/2022. He did have mildly low Potassium level but renal function was stable. Patient is feeling better He will be finishing antibiotic in 2 days. Has follow up with Dr. Jama next week. Past medical history, appointments, medications, allergies reviewed. Previous Medical History PAST MEDICAL HISTORY Diagnosis Date Abdominal wall hernia 02/26/2013 Abdominal wall pain 01/01/2022 Acquired abdominal wall defect 03/13/2016 Acute embolism and thrombosis of deep vein of distal lower extremity (HCC) Acute renal failure (HCC) 06/01/2010 SECONDARY TO SEPTIC SHOCK, RECOVERED ON OWN Anxiety 03/10/2017 Atrial fibrillation (HCC) 12/18/2005 Benign prostatic hyperplasia with urinary frequency 02/08/2019 Sees Kay Duran NP with Dr. Jama Cardiomyopathy in diseases classified elsewhere ([facility]) Cardiomyopathy, nonischemic (HCC) 02/08/2019 associated with atrial fibrillation--well controlled. 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 FROM LAPRASCOPUIC HERNIA SURGERY Well adult exam 12/29/2020 Last done: 01/01/2022 Previous Surgical History PAST SURGICAL HISTORY Procedure Laterality Date ARTL CATHJ/CANNULJ MNTR/TRANSFUSION SPX PRQ 05-30-10 COLONOSCOPY 07/03/10 EXPLORATION ABDOMINAL WALL 06/13/10 evacuation abdominal hematoma EXPLORATORY LAPAROTOMY, CELIOTOMY-SP 06/02/10 placement of abdominal vac-pack EXPLORATORY LAPAROTOMY, CELIOTOMY-SP 06/02/10 bowel resection, abdominal wash out EXPLORATORY LAPAROTOMY, CELIOTOMY-SP 06/08/10 small bowel anastomosis INGUINAL HERNIA REPAIR HX Bilateral 05/28/2010 IR IVC FILTER PLACEMENT 07/19/2010 Bard Eclipse Filter LAPAROSCOPY APPENDECTOMY 2019 NASAL SEPTUM REPOS W STABILIZATION 1979 PAST SURGICAL HISTORY OF 06/05/10 reopening of recent laparotomy PAST SURGICAL HISTORY OF 06/11/10 reopening of recent laparotomy, removal infected mesh PAST SURGICAL HISTORY OF 06/14/10 reopening of recent laparotomy, abdominal wash out PAST SURGICAL HISTORY OF Left Heart catheterization UPPER GI ENDOSCOPY DIAGNOSTIC 07/02/10 Family History FAMILY HISTORY Problem Relation Age of Onset Colon Cancer Mother 70 Coronary Artery Disease Mother other (Heart Disease) Mother other (amyotropic lateral sclerosis) Father Multiple Sclerosis Brother Multiple Sclerosis Sister Diabetes Maternal Grandfather Patient Allergies ALLERGIES Allergen Reactions No Known Drug Aller* Other: See Comments Current Medications Current Outpatient Medications on File Prior to Visit Medication Sig ciprofloxacin HCl (CIPRO) 500 mg tablet Take by mouth twice daily. Lactobacillus acidophilus (PROBIOTIC ORAL) Take by mouth. Lactobacillus acidophilus (FLORAJEN ACIDOPHILUS ORAL) Take by mouth. tamsulosin (FLOMAX) 0.4 mg Take 1 capsule by mouth daily at bedtime. Per Urology, Dr. Maher metoprolol tartrate, short acting, (LOPRESSOR) 25 mg tablet Take 1 tablet by mouth twice daily. COMPOUNDED PRESCRIPTION OTC sleep aid Diphenhydramine 50 mg flecainide (TAMBOCOR) 100 mg tablet Take 1 tablet by mouth twice daily. pravastatin (PRAVACHOL) 10 mg tablet Take 10 mg by mouth once daily. aspirin, enteric coated (ASPIRIN, ENTERIC COATED) 81 mg EC tablet 1 tablet daily (Patient not taking: Reported on 02/19/2022) No current facility-administered medications on file prior to visit. Social History Social History Tobacco Use Smoking status: Never Smokeless tobacco: Never Vaping Use Vaping Use: Never used Substance Use Topics Alcohol use: Yes Alcohol/week: 140.0 standard drinks Comment: SOCIAL BEER Drug use: No Review of Symptoms REVIEW OF SYSTEMS As HPI EXAM: BP 106/84 Pulse 77 Temp 36.3 C (97.3 F) (Tympanic) Resp 16 Wt 84.7 kg (186 lb 12.8 oz) SpO2 95% BMI 25.30 kg/m General Appearance: Well appearing, alert, in no acute distress, well-hydrated, well nourished.. Lungs: Lungs clear to auscultation. No wheezing, rhonchi, rales.. Heart: RRR without murmur, gallop, or rubs. No ectopy. Abdomen: Normal abdominal exam, Abdomen soft, non-tender. Bowel sounds normal. No masses, organomegaly. Extremities: No deformities, edema, skin discoloration, clubbing or cyanosis. Good capillary refill. . Health Maintenance List SHINGRIX VACCINE(1 of 2) Never done COLORECTAL CANCER SCREENING due on 01/12/2022 DEPRESSION ASSESSMENT Never done DIABETES SCREEN due on 03/06/2025 DTAP,TDAP,TD(3 - Td or Tdap) due on 10/03/2025 PROSTATE CANCER SCREENING DISCUSSION due on 02/05/2026 LIPID SCREEN due on 12/26/2026 INFLUENZA Completed HEPATITIS C SCREENING Completed COVID-19 VACCINE Completed HIV SCREENING Discontinued Data reviewed See HPI ASSESSMENT/PLAN: 1. Acute cystitis without hematuria - ICD9: 595.0, ICD10: N30.00 (primary diagnosis) Patient to keep follow up with urology. Check labs today. Follow up prn and as scheduled - CBC + DIFF - COMP METABOLIC PANEL 2. Hypokalemia - ICD9: 276.8, ICD10: E87.6 As above - CBC + DIFF - COMP METABOLIC PANEL 3. Benign prostatic hyperplasia with urinary retention - ICD9: 600.01, 788.20, ICD10: N40.1, R33.8 Cont with uro 4. Paroxysmal atrial fibrillation (HCC) - ICD9: 427.31, ICD10: I48.0 Cont with cardio Mayuri Collins PA-C Keep follow up as scheduled. Labs prior. documented in this encounterK[facility]10-31-2022 Miscellaneous Notes* Telephone Encounter - Mary Ellen Coker Ma - 03/11/2022 9:55 AM EDT Pt notified of results via [employer]. Mary Ellen oCker Ma * Telephone Encounter - Shan Christianson MD - 03/10/2022 8:52 PM EDT Let patient know kidney functions are improved with better hydration. Needs to continue. documented in this encounterK[facility]10-12-2022 Miscellaneous Notes* Telephone Encounter - Ming Posada MA - 02/20/2022 9:27 AM EDT Patient notified and voiced understanding. Ming Posada MA * Telephone Encounter - Shan Christianson MD - 02/20/2022 8:28 AM EDT Let patient know lab work showed kidnies still showing reduced function. I want him to work on trying to get 6-8 eight oz glasses of water a day and repeat lab in 2 weeks. Order placed. documented in this encounterKettering [facility]10-11-2022 History of Present illness Narrative* Shan Christianson MD - 02/19/2022 8:00 AM EDT Chief Complaint Patient presents with: Follow Up: Hospital Follow up HPI Jeramy Wood is a 61 year old male who presents here today for Hospital Discharge Follow up.. Patient was seen in [facility] ER for urinary symptoms on 02/08/2022 along with fever and hematuria. Patient was sent home but cultures came back with pseudomonas and patient was asked to return to the ER and admitted on 02/09/2022 for IV antibiotics and ID consult. On 02/09/2022 patient had had no return of fevers. However had some chills the night prior and some more hematuria. A chest x-ray wasNeg for acute findings. His CBC did not show a leukocytosis and his WBC count had gone down to 9.5.Creatinine was elevated at 1.38 on day of admission and was 1.3 the day prior. Electrolytes were normal and lactic acid was normal. ID was consulted and patient was started on Zosyn every [address] showed a none obstructing stone on the left and some borderline dilated fluid-filled loops of small intestine. Due to GO nephrology was consulted and started on IV fluids since felt to be related to dehydration. Renal US completed and showed normal kidnies and bladder. Due to some diarrhea C. Diff was done along with enteric cultures and were negative. Patient was released to home on 02/13/2022 on seven days of Levaquin which he has one day left. This can interact with his flecainide causing QT changes and will need a EKG.. Patient has been feeling better. No fevers, chills, nausea, vomiting, or diarrhea. No further hematuria. No chest pain or lightheadedness. Past medical history, appointments, medications, allergies reviewed. Previous Medical History PAST MEDICAL HISTORY Diagnosis Date Abdominal wall hernia 02/26/2013 Abdominal wall pain 01/01/2022 Acquired abdominal wall defect 03/13/2016 Acute embolism and thrombosis of deep vein of distal lower extremity (HCC) Acute renal failure (HCC) 06-01-10 SECONDARY TO SEPTIC SHOCK, RECOVERED ON OWN Anemia 08/06/2010 Anxiety 03/10/2017 Appendicitis 12/18/2019 Atrial fibrillation (HCC) 12/18/2005 Benign prostatic hyperplasia with urinary frequency 02/08/2019 Sees Kay Duran NP with Dr. Jama Cardiomyopathy in diseases classified elsewhere (HCC) Cardiomyopathy, nonischemic (HCC) 02/08/2019 associated with atrial fibrillation--well controlled. 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 FROM LAPRASCOPUIC HERNIA SURGERY Well adult exam 12/29/2020 Last done: 01/01/2022 Previous Surgical History PAST SURGICAL HISTORY Procedure Laterality Date ARTL CATHJ/CANNULJ MNTR/TRANSFUSION SPX PRQ 05-30-10 COLONOSCOPY 07/03/10 EXPLORATION ABDOMINAL WALL 06/13/10 evacuation abdominal hematoma EXPLORATORY LAPAROTOMY, CELIOTOMY-SP 06/02/10 placement of abdominal vac-pack EXPLORATORY LAPAROTOMY, CELIOTOMY-SP 06/02/10 bowel resection, abdominal wash out EXPLORATORY LAPAROTOMY, CELIOTOMY-SP 06/08/10 small bowel anastomosis INGUINAL HERNIA REPAIR HX Bilateral 05/28/2010 IR IVC FILTER PLACEMENT 07/19/2010 Bard Eclipse Filter LAPAROSCOPY APPENDECTOMY 2019 NASAL SEPTUM REPOS W STABILIZATION 1979 PAST SURGICAL HISTORY OF 06/05/10 reopening of recent laparotomy PAST SURGICAL HISTORY OF 06/11/10 reopening of recent laparotomy, removal infected mesh PAST SURGICAL HISTORY OF 06/14/10 reopening of recent laparotomy, abdominal wash out PAST SURGICAL HISTORY OF Left Heart catheterization UPPER GI ENDOSCOPY DIAGNOSTIC 07/02/10 Family History FAMILY HISTORY Problem Relation Age of Onset Colon Cancer Mother 70 Coronary Artery Disease Mother other (Heart Disease) Mother other (amyotropic lateral sclerosis) Father Multiple Sclerosis Brother Multiple Sclerosis Sister Diabetes Maternal Grandfather Patient Allergies ALLERGIES Allergen Reactions No Known Drug Aller* Other: See Comments Current Medications Current Outpatient Medications on File Prior to Visit Medication Sig tamsulosin (FLOMAX) 0.4 mg Take 1 capsule by mouth daily at bedtime. Per Urology, Dr. Maher metoprolol tartrate, short acting, (LOPRESSOR) 25 mg tablet Take 1 tablet by mouth twice daily. COMPOUNDED PRESCRIPTION OTC sleep aid Diphenhydramine 50 mg flecainide (TAMBOCOR) 100 mg tablet Take 1 tablet by mouth twice daily. pravastatin (PRAVACHOL) 10 mg tablet Take 10 mg by mouth once daily. aspirin, enteric coated (ASPIRIN, ENTERIC COATED) 81 mg EC tablet 1 tablet daily No current facility-administered medications on file prior to visit. Social History Social History Tobacco Use Smoking status: Never Smokeless tobacco: Never Vaping Use Vaping Use: Never used Substance Use Topics Alcohol use: Yes Alcohol/week: 140.0 standard drinks Comment: SOCIAL BEER Drug use: No Review of Symptoms REVIEW OF SYSTEMS - see HPI EXAM: BP 106/76 Pulse 80 Resp 16 Wt 83.9 kg (185 lb) SpO2 97% BMI 25.06 kg/m General Appearance: Well appearing, alert, in no acute distress, well-hydrated, well nourished.. Neck: Supple, no adenopathy; thyroid symmetric, normal size, no bruits. Back:no flank pain to percussion Lungs: Lungs clear to auscultation. No wheezing, rhonchi, rales.. Heart: RRR without murmur, gallop, or rubs. No ectopy. Abdomen: Normal abdominal exam, Abdomen soft, non-tender. Bowel sounds normal. No masses, organomegaly. Peripheral Pulses: Normal. Health Maintenance List SHINGRIX VACCINE(1 of 2) Never done DEPRESSION ASSESSMENT Never done COVID-19 VACCINE(4 - Booster for Pfizer series) due on 05/21/2021 COLORECTAL CANCER SCREENING due on 01/12/2022 DIABETES SCREEN due on 12/26/2024 DTAP,TDAP,TD(3 - Td or Tdap) due on 10/03/2025 PROSTATE CANCER SCREENING DISCUSSION due on 02/05/2026 LIPID SCREEN due on 12/26/2026 INFLUENZA Completed HEPATITIS C SCREENING Completed HIV SCREENING Discontinued Data reviewed In office EKG: NSR with no acute ST or T wave changes and no changes when compared to EKG from 12/18/2019. A/P ASSESSMENT/PLAN: 1. Acute cystitis with hematuria - ICD9: 595.0, ICD10: N30.01 (primary diagnosis) - resolved. - patient to complate last day of levaquin 2. GO (acute kidney injury) (HCC) - ICD9: 584.9, ICD10: N17.9 - check BMP 3. Paroxysmal atrial fibrillation (HCC) - ICD9: 427.31, ICD10: I48.0 -stable clinically - ECG COMPLETE 4. Medication management - ICD9: V58.69, ICD10: Z79.899 Check - ECG COMPLETE 5. Encounter for immunization - ICD9: V03.89, ICD10: Z23 - [employer] COVID-19 BIVALENT BOOSTER VACCINE, AGE 12+ YR: given F/u next routine or as needed. I spent a total of 30 minutes on the date of the service which included preparing to see the patient, [id number] patient care, completing clinical documentation, performing a medically appropriate examination, counseling and educating the patient/family/caregiver and ordering medications, tests, or procedures. Shan Christianson MD documented [facility] encounterK[facility]22 Miscellaneous Notes* Telephone Encounter - Ming Posada MA - 02/14/2022 4:34 PM EDT Thank you. Ming Posada MA * Telephone Encounter - Medina Tejada RN - 02/14/2022 4:16 PM EDT Patient's calling for hospital f/u appointment. She states patient was hospitalized @ [facility] x 5 days for sepsis. states he will need an EKG @ his hospital F/U visit due to medications he was discharged on. Does he need a visit longer than 20 minutes? I scheduled 40 minutes if needed that can be changed to 20 if not. Medina Tejada RN documented in this encounterK[facility]10-02-2022 Miscellaneous Notes* Telephone Encounter - James Rogers RN - 02/10/2022 2:55 PM EDT Patient's calling, patient is in the hospital with urine and blood infections, they have been trying to reach out the his [facility] primary care provider about results from a urine culture 2 days ago,there is no recent urine culture in the patient's chart, patient's advised. documented in this encounterK[facility]09-30-2022 History of Present illness Narrative* Mayuri Collins PA-C - 02/08/2022 12:44 PM EDT Chief Complaint Patient presents with: Urinary Problem: Urgency, frequency,hematuria HPI Jeramy Wood is a 61 year old male who presents here today for Above Complaints.. Patient has been having urgency frequency and dysuria since last week after urologist started him on flomax. Symptoms have progressed and he is now feeling chilled, achey, low back pain and this morning notedbloody discharge in toilet after peeing. Past medical history, appointments, medications, allergies reviewed. Previous Medical History PAST MEDICAL HISTORY Diagnosis Date Abdominal wall hernia 02/26/2013 Abdominal wall pain 01/01/2022 Acquired abdominal wall defect 03/13/2016 Acute embolism and thrombosis of deep vein of distal lower extremity (HCC) Acute renal failure (HCC) 06-01-10 SECONDARY TO SEPTIC SHOCK, RECOVERED ON OWN Anemia 08/06/2010 Anxiety 03/10/2017 Appendicitis 12/18/2019 Atrial fibrillation (HCC) 12/18/2005 Benign prostatic hyperplasia with urinary frequency 02/08/2019 Sees Kay Duran NP with Dr. Jama Cardiomyopathy in diseases classified elsewhere (HCC) Cardiomyopathy, nonischemic (HCC) 02/08/2019 associated with atrial fibrillation--well controlled. 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 FROM LAPRASCOPUIC HERNIA SURGERY Well adult exam 12/29/2020 Last done: 01/01/2022 Previous Surgical History PAST SURGICAL HISTORY Procedure Laterality Date ARTL CATHJ/CANNULJ MNTR/TRANSFUSION SPX PRQ 05-30-10 COLONOSCOPY 07/03/10 EXPLORATION ABDOMINAL WALL 06/13/10 evacuation abdominal hematoma EXPLORATORY LAPAROTOMY, CELIOTOMY-SP 06/02/10 placement of abdominal vac-pack EXPLORATORY LAPAROTOMY, CELIOTOMY-SP 06/02/10 bowel resection, abdominal wash out EXPLORATORY LAPAROTOMY, CELIOTOMY-SP 06/08/10 small bowel anastomosis INGUINAL HERNIA REPAIR HX Bilateral 05/28/2010 IR IVC FILTER PLACEMENT 07/19/2010 Bard Eclipse Filter LAPAROSCOPY APPENDECTOMY 2019 NASAL SEPTUM REPOS W STABILIZATION 1979 PAST SURGICAL HISTORY OF 06/05/10 reopening of recent laparotomy PAST SURGICAL HISTORY OF 06/11/10 reopening of recent laparotomy, removal infected mesh PAST SURGICAL HISTORY OF 06/14/10 reopening of recent laparotomy, abdominal wash out PAST SURGICAL HISTORY OF Left Heart catheterization UPPER GI ENDOSCOPY DIAGNOSTIC 07/02/10 Family History FAMILY HISTORY Problem Relation Age of Onset Colon Cancer Mother 70 Coronary Artery Disease Mother other (Heart Disease) Mother other (amyotropic lateral sclerosis) Father Multiple Sclerosis Brother Multiple Sclerosis Sister Diabetes Maternal Grandfather Patient Allergies ALLERGIES Allergen Reactions No Known Drug Aller* Other: See Comments Current Medications Current Outpatient Medications on File Prior to Visit Medication Sig tamsulosin (FLOMAX) 0.4 mg Take 1 capsule by mouth daily at bedtime. Per Urology, Dr. Prano metoprolol tartrate, short acting, (LOPRESSOR) 25 mg tablet Take 1 tablet by mouth twice daily. COMPOUNDED PRESCRIPTION OTC sleep aid Diphenhydramine 50 mg flecainide (TAMBOCOR) 100 mg tablet Take 1 tablet by mouth twice daily. pravastatin (PRAVACHOL) 10 mg tablet Take 10 mg by mouth once daily. aspirin, enteric coated (ASPIRIN, ENTERIC COATED) 81 mg EC tablet 1 tablet daily No current facility-administered medications on file prior to visit. Social History Social History Tobacco Use Smoking status: Never Smokeless tobacco: Never Vaping Use Vaping Use: Never used Substance Use Topics Alcohol use: Yes Alcohol/week: 140.0 standard drinks Comment: SOCIAL BEER Drug use: No Review of Symptoms REVIEW OF SYSTEMS See hpi EXAM: BP 100/58 (BP Site: Right Arm, BP Position: Sitting, BP Cuff Size: Large Adult) Pulse 100 Temp (!) 38.7 C (101.7 F) Resp 18 Wt 87.5 kg (193 lb) BMI 26.14 kg/m General Appearance: ill appearing. Lungs: Lungs clear to auscultation. No wheezing, rhonchi, rales.. Heart: RRR without murmur, gallop, or rubs. No ectopy. Abdomen: tender throughout. No cva tenderness. Health Maintenance List SHINGRIX VACCINE(1 of 2) Never done DEPRESSION ASSESSMENT Never done COVID-19 VACCINE(4 - Booster for Pfizer series) due on 05/21/2021 COLORECTAL CANCER SCREENING due on 01/12/2022 DIABETES SCREEN due on 12/26/2024 DTAP,TDAP,TD(3 - Td or Tdap) due on 10/03/2025 PROSTATE CANCER SCREENING DISCUSSION due on 02/05/2026 LIPID SCREEN due on 12/26/2026 INFLUENZA Completed HEPATITIS C SCREENING Completed HIV SCREENING Discontinued Data reviewed ASSESSMENT/PLAN: 1. Gross hematuria - ICD9: 599.71, ICD10: R31.0 (primary diagnosis) Given symptoms with fever, concerned for possible pyelonephritis. Advised patient to go to ER for evaluation 2. Flu-like symptoms - ICD9: 780.99, ICD10: R68.89 As above. Mayuri Collins PA-C documented in this encounterK[facility]09-30-2022 Miscellaneous Notes* Telephone Encounter - Patricia Lemus RN - 02/08/2022 11:07 AM EDT Protocol Recommends: See provider within 24 hours. Appt made with Mayuri for today. Please call or patient if provider has other instructions for patient. Thank you. Reason for Disposition Side (flank) or lower back pain present Answer Assessment - Initial Assessment Questions Patient reporting pain in bladder area once bladder is emptied after each urination. Mild increase in urinary frequency as well. Some dizziness when standing. States felt weak when got up this morning. States this has happened ever since he was switched from detrol to flomax last week by Dr. [facility]. Urology closed today and calling PCP office to have patient seen today and have urine tested if possible-they are concerned for a UTI. Patient states he has not felt well since day one of taking flomax. Also has cold symptoms as well. Body shaking all over and he states he does notknow why, but denies fever or chills. Has not checked temperature. Reports some lower back pain. Headaches off and on for about a week. Negative home covid test today and two days ago. + cough for one week. Denies chest pain, SOB, blood in urine, abdominal pain, sore throat, nausea, vomiting or diarrhea. reports patient has anxiety and PTSD and does not want to go to ER. Reports current BP is 139/76. Pulse 102. Only drank coffee today. Not a diabetic. Has a-fib. 1. SYMPTOM: as above 2. ONSET: about a week ago 3. PAIN: as above 4. CAUSE: not sure 5. OTHER SYMPTOMS: as above 6. : n/a Protocols used: Urinary [id number] documented in this encounterK[facility]09-20-2022 History of Present illness Narrative* Linda Newman LPN - 01/29/2022 5:08 PM EDT Please see below GI consult: Scan on 01/29/2022 1:20 PM by External Provider: Consultation - MICAELA Newman LPN documented in this encounterKet[facility]09-07-2022 Instructions* Patient Instructions* Shan Christianson MD - 01/16/2022 3:38 PM EDT Please get labs and urine test done on or after 12/20/2022 prior to your next visit. documented in this encounterKettering [facility]09-07-2022 History of Present illness Narrative* Shan Christianson MD - 01/16/2022 3:07 PM EDT Chief Complaint Patient presents with: Recheck HPI Jeramy Wood is a 61 year old male who presents here today for Establish care. Patient with Hx of Anxiety, A. 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 Does not need any medication for the anxiety. Patient is on chronic disability due to his abdominal wall defect. Patient was seen for PE 01/01/2022. PE was unremarkable as well as lbs except need to work on a reduced fat diet. Will be seeing Dr. Maher later this month. Past medical history, appointments, medications, allergies reviewed. Previous Medical History PAST MEDICAL HISTORY Diagnosis Date Abdominal wall hernia 02/26/2013 Acute embolism and thrombosis of deep vein of distal lower extremity (HCC) Acute renal failure (HCC) 06-01-10 SECONDARY TO SEPTIC SHOCK, RECOVERED ON OWN Anemia 08/06/2010 Appendicitis 12/18/2019 Atrial fibrillation (HCC) 12/18/2005 Cardiomyopathy in diseases classified elsewhere ([facility]) Cardiomyopathy, nonischemic ([facility]) 02/08/2019 associated with atrial fibrillation--well controlled. Nuclear treadmill stress test 06/2018: EF >60% at 13 METS DVT (deep venous thrombosis) ([facility]) 03/27/2011 RLE Erectile dysfunction 04/04/2010 Family history of hypertension Hyperlipidemia 10/12/2010 Inguinal hernia 04/04/2010 Palpitations Paroxysmal atrial fibrillation ([facility]) 07/17/2017 Pure hypercholesterolemia Septic shock(785.52) 06-01-10 Small bowel obstruction (HCC) FOUND 06-01-10 ? FROM LAPRASCOPUIC HERNIA SURGERY Previous Surgical History PAST SURGICAL HISTORY Procedure Laterality Date ARTL CATHJ/CANNULJ MNTR/TRANSFUSION SPX PRQ 05-30-10 COLONOSCOPY 07/03/10 EXPLORATION ABDOMINAL WALL 06/13/10 evacuation abdominal hematoma EXPLORATORY LAPAROTOMY, CELIOTOMY-SP 06/02/10 placement of abdominal vac-pack EXPLORATORY LAPAROTOMY, CELIOTOMY-SP 06/02/10 bowel resection, abdominal wash out EXPLORATORY LAPAROTOMY, CELIOTOMY-SP 06/08/10 small bowel anastomosis INGUINAL HERNIA REPAIR HX Bilateral 05/28/2010 IR IVC FILTER PLACEMENT 07/19/2010 Bard Eclipse Filter LAPAROSCOPY APPENDECTOMY 2020 NASAL SEPTUM REPOS W STABILIZATION 1979 PAST SURGICAL HISTORY OF 06/05/10 reopening of recent laparotomy PAST SURGICAL HISTORY OF 06/11/10 reopening of recent laparotomy, removal infected mesh PAST SURGICAL HISTORY OF 06/14/10 reopening of recent laparotomy, abdominal wash out PAST SURGICAL HISTORY OF Left Heart catheterization UPPER GI ENDOSCOPY DIAGNOSTIC 07/02/10 Family History FAMILY HISTORY Problem Relation Age of Onset Colon Cancer Mother 70 Coronary Artery Disease Mother other (Heart Disease) Mother other (amyotropic lateral sclerosis) Father Multiple Sclerosis Brother Multiple Sclerosis Sister Diabetes Maternal Grandfather Patient Allergies ALLERGIES Allergen Reactions No Known Drug Aller* Current Medications Current Outpatient Medications on File Prior to Visit Medication Sig metoprolol tartrate, short acting, (LOPRESSOR) 25 mg tablet Take 1 tablet by mouth twice daily. tolterodine ER (DETROL LA) 4 mg 24 hr capsule Take 4 mg by mouth once daily. COMPOUNDED PRESCRIPTION OTC sleep aid Diphenhydramine 50 mg flecainide (TAMBOCOR) 100 mg tablet Take 1 tablet by mouth twice daily. pravastatin (PRAVACHOL) 10 mg tablet Take 10 mg by mouth once daily. aspirin, enteric coated (ASPIRIN, ENTERIC COATED) 81 mg EC tablet 1 tablet daily No current facility-administered medications on file prior to visit. Social History Social History Tobacco Use Smoking status: Never Smokeless tobacco: Never Vaping Use Vaping Use: Never used Substance Use Topics Alcohol use: Yes Alcohol/week: 140.0 standard drinks Comment: SOCIAL BEER Drug use: No Review of Symptoms REVIEW OF SYSTEMS GENERAL: No weight loss, malaise or fevers RESPIRATORY: Negative for cough, hemoptysis, wheezing, COPD, dyspnea or shortness of breath CARDIOVASCULAR: Negative for chest pain, leg swelling, hypertension, CHF or palpitations GI: No nausea, vomiting, or diarrhea, No frequent heartburn or reflux symptoms, and his abdominal pain has been stable PSYCH: Negative for sleep disturbance, mood disorder and recent psychosocial stressors. Takes an over the counter sleep aid and is helpful. NEURO: No history of headaches, syncope, paralysis, seizures or tremors EXAM: BP 118/80 (BP Site: Right Arm, BP Position: Sitting, BP Cuff Size: Regular Adult) Pulse 76 Resp14 Wt 87.5 kg (193 lb) BMI 26.14 kg/m General Appearance: Well appearing, alert, in no acute distress, well-hydrated, well nourished.. Neck: Supple, no adenopathy; thyroid symmetric, normal size, no bruits. Lungs: Lungs clear to auscultation. No wheezing, rhonchi, rales.. Heart: RRR without murmur, gallop, or rubs. No ectopy. Abdomen: Normal abdominal exam, Abdomen soft, non-tender. Bowel sounds normal. No masses, organomegaly. Extremities: No deformities, edema, skin discoloration, Good capillary refill. . Peripheral Pulses: Normal. Health Maintenance List SHINGRIX VACCINE(1 of 2) Never done COLORECTAL CANCER SCREENING due on 07/11/2015 COVID-19 VACCINE(4 - Booster for Pfizer series) due on 07/24/2021 INFLUENZA(1) due on 01/10/2022 DEPRESSION SCREENING due on 01/01/2023 DIABETES SCREEN due on 12/26/2024 DTAP,TDAP,TD(3 - Td or Tdap) due on 10/03/2025 PROSTATE CANCER SCREENING DISCUSSION due on 02/05/2026 LIPID SCREEN due on 12/26/2026 HEPATITIS C SCREENING Completed HIV SCREENING Discontinued Data reviewed A/P ASSESSMENT/PLAN: 1. Mixed hyperlipidemia - ICD9: 272.2, ICD10: E78.2 (primary diagnosis) - good control - Continue current medication. - Encouraged following a low fat, low cholesterol diet. - Discussed the benefits of regular aerobic exercise and weight loss. - Encouraged following a low carbohydrate, healthy oil intake diet. 2. Anxiety - ICD9: 300.00, ICD10: F41.9 - stable not needing meds. 3. Paroxysmal atrial fibrillation (HCC) - ICD9: 427.31, ICD10: I48.0 Cont management with cardio 4. Acquired abdominal wall defect - ICD9: 738.8, ICD10: M95.8 - on chronic disability 5. Encounter for immunization - ICD9: V03.89, ICD10: Z23 - INFLUENZA VACCINE QUADRIVALENT 6 MO - 64 YRS IM: given F/u on or after 01/01/2023 Shan Christianson MD documented in this encounterKettering [facility]08-23-2022 Miscellaneous Notes* Telephone Encounter - Shon Velasquez LPN - 01/01/2022 11:11 AM EDT Disability forms have been completed and faxed back to [place] [phone]. Original placed in [employer] rec for picker packer and copy sent to scanning. Left message for pt that he can picker packer forms from med rec. Shon Velasquez LPN documented in this encounterKettering [facility]08-23-2022 History of Present illness Narrative* Mayuri Collins PA-C - 01/01/2022 9:19 AM EDT Chief Complaint Patient presents with: Physical: Has disability forms for completion HPI Jeramy Wood is a 61 year old male who presents here today for physical. Patient with hx of a. Fib- seeing cardio, BPH- seeing urology, abdominal wall defect s/p extensive surgerical hx. Patient has been on disability since 2010 due to abdominal wall defect he aquired from past surgeries. He cannot lift more than 25lbs and with his employer unable to accommodate these restrictions he has maintained on disability. His claim was approved through 2025 but needs forms filled out yearly. No changes to his physical ability. 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 Otherwise he is doing well. No concerns today. Past medical history, appointments, medications, allergies reviewed. Previous Medical History PAST MEDICAL HISTORY Diagnosis Date Abdominal wall hernia 02/26/2013 Acute embolism and thrombosis of deep vein of distal lower extremity (HCC) Acute renal failure (HCC) 1-21-11 SECONDARY TO SEPTIC SHOCK, RECOVERED ON OWN Anemia 08/06/2010 Appendicitis 12/18/2019 Atrial fibrillation (HCC) 12/18/2005 Cardiomyopathy in diseases classified elsewhere (HCC) Cardiomyopathy, nonischemic (HCC) 02/08/2019 associated with atrial fibrillation--well controlled. Nuclear treadmill stress test 06/2018: EF >60% at 13 METS DVT (deep venous thrombosis) (HCC) 03/27/2011 RLE Erectile dysfunction 04/04/2010 Family history of hypertension Hyperlipidemia 10/12/2010 Inguinal hernia 04/04/2010 Palpitations Paroxysmal atrial fibrillation (HCC) 07/17/2017 Pure hypercholesterolemia Septic shock(785.52) 06-01-10 Small bowel obstruction (HCC) FOUND 06-01-10 ? FROM LAPRASCOPUIC HERNIA SURGERY Previous Surgical History PAST SURGICAL HISTORY Procedure Laterality Date ARTL CATHJ/CANNULJ MNTR/TRANSFUSION SPX PRQ 05-30-10 COLONOSCOPY 07/03/10 EXPLORATION ABDOMINAL WALL 06/13/10 evacuation abdominal hematoma EXPLORATORY LAPAROTOMY, CELIOTOMY-SP 06/02/10 placement of abdominal vac-pack EXPLORATORY LAPAROTOMY, CELIOTOMY-SP 06/02/10 bowel resection, abdominal wash out EXPLORATORY LAPAROTOMY, CELIOTOMY-SP 06/08/10 small bowel anastomosis INGUINAL HERNIA REPAIR HX Bilateral 05/28/2010 IR IVC FILTER PLACEMENT 07/19/2010 Bard Eclipse Filter LAPAROSCOPY APPENDECTOMY 2019 NASAL SEPTUM REPOS W STABILIZATION 1979 PAST SURGICAL HISTORY OF 06/05/10 reopening of recent laparotomy PAST SURGICAL HISTORY OF 06/11/10 reopening of recent laparotomy, removal infected mesh PAST SURGICAL HISTORY OF 06/14/10 reopening of recent laparotomy, abdominal wash out PAST SURGICAL HISTORY OF Left Heart catheterization UPPER GI ENDOSCOPY DIAGNOSTIC 07/02/10 Family History FAMILY HISTORY Problem Relation Age of Onset Colon Cancer Mother 70 Coronary Artery Disease Mother other (Heart Disease) Mother other (amyotropic lateral sclerosis) Father Multiple Sclerosis Brother Multiple Sclerosis Sister Diabetes Maternal Grandfather Patient Allergies ALLERGIES Allergen Reactions No Known Drug Aller* Current Medications Current Outpatient Medications on File Prior to Visit Medication Sig metoprolol tartrate, short acting, (LOPRESSOR) 25 mg tablet Take 1 tablet by mouth twice daily. tolterodine ER (DETROL LA) 4 mg 24 hr capsule Take 4 mg by mouth once daily. COMPOUNDED PRESCRIPTION OTC sleep aid Diphenhydramine 50 mg flecainide (TAMBOCOR) 100 mg tablet Take 1 tablet by mouth twice daily. pravastatin (PRAVACHOL) 10 mg tablet Take 10 mg by mouth once daily. aspirin, enteric coated (ASPIRIN, ENTERIC COATED) 81 mg EC tablet 1 tablet daily No current facility-administered medications on file prior to visit. Social History Social History Tobacco Use Smoking status: Never Smokeless tobacco: Never Vaping Use Vaping Use: Never used Substance Use Topics Alcohol use: Yes Alcohol/week: 140.0 standard drinks Comment: SOCIAL BEER Drug use: No Review of Symptoms REVIEW OF SYSTEMS GENERAL: No weight loss, malaise or fevers HEENT: No changes in hearing or vision, no nose bleeds or other nasal problems NECK: Negative for lumps, goiter, pain and significant neck swelling RESPIRATORY: Negative for cough, hemoptysis, wheezing, COPD, dyspnea or shortness of breath CARDIOVASCULAR: Negative for chest pain, leg swelling, hypertension, CHF or palpitations GI: +Gerd at times- relief with OTC. Negative for abdominal discomfort, blood in stools or black stools, change in bowel habit, nausea, vomiting : No history of dysuria, frequency or incontinence MUSCULOSKELETAL: +abdominal wall weakness. Negative for joint pain or swelling, back pain or musclepain SKIN: Negative for lesions, rash, and itching PSYCH: Negative for sleep disturbance, mood disorder and recent psychosocial stressors HEMATOLOGY/LYMPHOLOGY: Negative for prolonged bleeding, bruising easily or swollen nodes ENDOCRINE: Negative for cold or heat intolerance, polyuria, polydipsia and goiter NEURO: No history of headaches, syncope, paralysis, seizures or tremors EXAM: BP 102/78 (BP Site: Right Arm, BP Position: Sitting, BP Cuff Size: Large Adult) Pulse 76 Temp 36.2 C (97.2 F) Resp 16 Ht 183 cm (6' 0.05) Wt 86.6 kg (191 lb) BMI 25.87 kg/m General Appearance: Well appearing, alert, in no acute distress, well-hydrated, well nourished.. Skin: Skin color, texture, turgor normal, no suspicious rashes or lesions. Head: Normocephalic, no masses, lesions, tenderness or abnormalities. Eyes: Anicteric sclera. Pupils are equally round and reactive to light. Extraocular movements are intact. . Ears: External ears normal, canals clear. TMs pearly gatica Nose/Sinuses: deferred- mask. Oropharynx: deferred- mask. Neck: Supple, no adenopathy; thyroid symmetric, normal size, no bruits. Lungs: Lungs clear to auscultation. No wheezing, rhonchi, rales.. Heart: RRR without murmur, gallop, or rubs. No ectopy. Abdomen: scarring noted. Abdomen tender to light touch and pressure. BS+ and soft. . Extremities: No deformities, edema, skin discoloration, clubbing or cyanosis. Good capillary refill. . Peripheral Pulses: Normal. Health Maintenance List SHINGRIX VACCINE(1 of 2) Never done COLORECTAL CANCER SCREENING due on 07/11/2015 COVID-19 VACCINE(4 - Booster for Pfizer series) due on 07/24/2021 DEPRESSION SCREENING due on 12/29/2021 INFLUENZA(1) due on 01/10/2022 DIABETES SCREEN due on 12/26/2024 DTAP,TDAP,TD(3 - Td or Tdap) due on 10/03/2025 PROSTATE CANCER SCREENING DISCUSSION due on 02/05/2026 LIPID SCREEN due on 12/26/2026 HEPATITIS C SCREENING Completed HIV SCREENING Discontinued Data reviewed Component Latest Ref Rng & Units 12/26/2021 Protein, Total 6.3 - 8.0 g/dL 7.2 Albumin 3.9 - 4.9 g/dL 4.6 Calcium 8.5 - 10.2 mg/dL 9.7 Bilirubin, Total 0.2 - 1.3 mg/dL 0.7 Alkaline Phosphatase 38 - 113 U/L 65 AST 14 - 40 U/L 25 ALT 10 - 54 U/L 28 Glucose 74 - 99 mg/dL 110 (H) BUN 9 - 24 mg/dL 18 Creatinine 0.73 - 1.22 mg/dL 1.23 (H) Sodium 136 - 144 mmol/L 139 Potassium 3.7 - 5.1 mmol/L 4.3 Chloride 97 - 105 mmol/L 103 CO2 22 - 30 mmol/L 25 Anion Gap 9 - 18 mmol/L 11 eGFR >=60 mL/min/1.73m 67 Total Cholesterol, Nonfasting <200 mg/dL 198 Triglycerides, Nonfasting <150 mg/dL 208 (H) HDL Cholesterol, Nonfasting >39 mg/dL 46 LDL Cholesterol, Nonfasting <100 mg/dL 110 (H) Non HDL Cholesterol, Nonfasting <130 mg/dL 152 (H) VLDL Cholesterol, Nonfasting <30 mg/dL 42 (H) Total Chol/HDL Ratio, Nonfasting <5.10 mg/dL 4.30 LDL/HDL Ratio, Nonfasting <2.54 mg/dL 2.39 ASSESSMENT/PLAN: 1. Well adult exam - ICD9: V70.0, ICD10: Z00.00 (primary diagnosis) - Counseled on healthy diet and regular exercise 2. Hyperlipidemia, unspecified hyperlipidemia type - ICD9: 272.4, ICD10: E78.5 - suboptimal control - Encouraged following a low fat, low cholesterol diet. - Encouraged following a low carbohydrate, healthy oil intake diet. - Continue current therapy. 3. Paroxysmal atrial fibrillation (HCC) - ICD9: 427.31, ICD10: I48.0 Cont with cardio 4. Acquired abdominal wall defect - ICD9: 738.8, ICD10: M95.8 Continue with weight restrictions 5. Benign prostatic hyperplasia with urinary frequency - ICD9: 600.01, 788.41, ICD10: N40.1, R35.0 Cont with urol 6. Abdominal wall pain - ICD9: 789.00, ICD10: R10.9 - as #4 7. Screening for colon cancer - ICD9: V76.51, ICD10: Z12.11 - COLOGUARD Follow up yearly. Patient has an appointment for a meet and greet with Dr. Christianson for establishing care scheduled. Okay to keep that appointment. Mayuri Collins PA-C [facility] of Past illness Narrative* Problem Noted Date Resolved Date Appendicitis 12/18/2019 12/29/2020 Last Assessment & Plan: Assessment: Acute appendicitis PLAN: - S/P open appendectomy, POD 2 - CLD x 2 days - Pain and nausea control, adequately managed - Likely DC 12/21 Plan to be discussed with Dr. Ansari. Cardiomyopathy, nonischemic 02/08/201905/12 Overview: associated with atrial fibrillation--well controlled. Nuclear treadmill stress test 06/2018: EF >60% at 13 METS Abdominal wall hernia 02/26/2013 05/24/2019 DVT (deep venous thrombosis) 03/27/2011 Acute embolism and thrombosi s of deep vein of distal lower extremity 10/12/2010 02/08/2019 Anemia 08/06/2010 02/08/2019 Hypomagnesemia 07/24/2010 02/18/2018 Trochanteric bursitis 04/04/2010 03/13/2016 documented as of this encounter (statuses as of 01/01/2022) [facility] of Past illness Narrative* Problem Noted Date Resolved Date Appendicitis 12/18/2019 12/29/2020 Last Assessment & Plan: Assessment: Acute appendicitis PLAN: - S/P open appendectomy, POD 2 - CLD x 2 days - Pain and nausea control, adequately managed - Likely DC 12/21 Plan to be discussed with Dr. Ansari. Cardiomyopathy, nonischemic 02/08/201905/12 Overview: associated with atrial fibrillation--well controlled. Nuclear treadmill stress test 06/2018: EF >60% at 13 METS Abdominal wall hernia 02/26/2013 05/24/2019 DVT (deep venous thrombosis) 03/27/2011 Acute embolism and thrombosi s of deep vein of distal lower extremity 10/12/2010 02/08/2019 Anemia 08/06/2010 02/08/2019 Hypomagnesemia 07/24/2010 02/18/2018 Trochanteric bursitis 04/04/2010 03/13/2016 documented as of this encounter (statuses as of 01/01/2022) [facility] History of Past illness Narrative* Problem Noted Date Resolved Date Appendicitis 12/18/2019 12/29/2020 Last Assessment & Plan: Assessment: Acute appendicitis PLAN: - S/P open appendectomy, POD 2 - CLD x 2 days - Pain and nausea control, adequately managed - Likely DC 12/21 Plan to be discussed with Dr. Ansari. Cardiomyopathy, nonischemic 02/08/201905/12 Overview: associated with atrial fibrillation--well controlled. Nuclear treadmill stress test 06/2018: EF >60% at 13 METS Abdominal wall hernia 02/26/2013 05/24/2019 DVT (deep venous thrombosis) 03/27/2011 Acute embolism and thrombosi s of deep vein of distal lower extremity 10/12/2010 02/08/2019 Anemia 08/06/2010 02/08/2019 Hypomagnesemia 07/24/2010 02/18/2018 Trochanteric bursitis 04/04/2010 03/13/2016 documented as of this encounter (statuses as of 01/17/2022) [facility] History of Past illness Narrative* Problem Noted Date Resolved Date Appendicitis 12/18/2019 12/29/2020 Last Assessment & Plan: Assessment: Acute appendicitis PLAN: - S/P open appendectomy, POD 2 - CLD x 2 days - Pain and nausea control, adequately managed - Likely DC 12/21 Plan to be discussed with Dr. Ansari. Cardiomyopathy, nonischemic 02/08/201905/12 Overview: associated with atrial fibrillation--well controlled. Nuclear treadmill stress test 06/2018: EF >60% at 13 METS Abdominal wall hernia 02/26/2013 05/24/2019 DVT (deep venous thrombosis) 03/27/2011 Acute embolism and thrombosi s of deep vein of distal lower extremity 10/12/2010 02/08/2019 Anemia 08/06/2010 02/08/2019 Hypomagnesemia 07/24/2010 02/18/2018 Trochanteric bursitis 04/04/2010 03/13/2016 documented as of this encounter (statuses as of 01/29/2022) [facility] History of Past illness Narrative* Problem Noted Date Resolved Date Appendicitis 12/18/2019 12/29/2020 Last Assessment & Plan: Assessment: Acute appendicitis PLAN: - S/P open appendectomy, POD 2 - CLD x 2 days - Pain and nausea control, adequately managed - Likely DC 12/21 Plan to be discussed with Dr. Ansari. Cardiomyopathy, nonischemic 02/08/201905/12 Overview: associated with atrial fibrillation--well controlled. Nuclear treadmill stress test 06/2018: EF >60% at 13 METS Abdominal wall hernia 02/26/2013 05/24/2019 DVT (deep venous thrombosis) 03/27/2011 Acute embolism and thrombosi s of deep vein of distal lower extremity 10/12/2010 02/08/2019 Anemia 08/06/2010 02/08/2019 Hypomagnesemia 07/24/2010 02/18/2018 Trochanteric bursitis 04/04/2010 03/13/2016 documented as of this encounter (statuses as of 02/08/2022) [facility] of Past illness Narrative* Problem Noted Date Resolved Date Appendicitis 12/18/2019 12/29/2020 Last Assessment & Plan: Assessment: Acute appendicitis PLAN: - S/P open appendectomy, POD 2 - CLD x 2 days - Pain and nausea control, adequately managed - Likely DC 12/21 Plan to be discussed with Dr. Ansari. Cardiomyopathy, nonischemic 02/08/201905/12 Overview: associated with atrial fibrillation--well controlled. Nuclear treadmill stress test 06/2018: EF >60% at 13 METS Abdominal wall hernia 02/26/2013 05/24/2019 DVT (deep venous thrombosis) 03/27/2011 Acute embolism and thrombosi s of deep vein of distal lower extremity 10/12/2010 02/08/2019 Anemia 08/06/2010 02/08/2019 Hypomagnesemia 07/24/2010 02/18/2018 Trochanteric bursitis 04/04/2010 03/13/2016 documented as of this encounter (statuses as of 02/08/2022) [facility] Narrative* Problem Noted Date Resolved Date Appendicitis 12/18/2019 12/29/2020 Last Assessment & Plan: Assessment: Acute appendicitis PLAN: - S/P open appendectomy, POD 2 - CLD x 2 days - Pain and nausea control, adequately managed - Likely DC 12/21 Plan to be discussed with Dr. Ansari. Cardiomyopathy, nonischemic 02/08/201905/12 Overview: associated with atrial fibrillation--well controlled. Nuclear treadmill stress test 06/2018: EF >60% at 13 METS Abdominal wall hernia 02/26/2013 05/24/2019 DVT (deep venous thrombosis) 03/27/2011 Acute embolism and thrombosi s of deep vein of distal lower extremity 10/12/2010 02/08/2019 Anemia 08/06/2010 02/08/2019 Hypomagnesemia 07/24/2010 02/18/2018 Trochanteric bursitis 04/04/2010 03/13/2016 documented as of this encounter (statuses as of 02/10/2022) [facility] of Past illness Narrative* Problem Noted Date Resolved Date Appendicitis 12/18/2019 12/29/2020 Last Assessment & Plan: Assessment: Acute appendicitis PLAN: - S/P open appendectomy, POD 2 - CLD x 2 days - Pain and nausea control, adequately managed - Likely DC 12/21 Plan to be discussed with Dr. Ansari. Cardiomyopathy, nonischemic 02/08/201905/12 Overview: associated with atrial fibrillation--well controlled. Nuclear treadmill stress test 06/2018: EF >60% at 13 METS Abdominal wall hernia 02/26/2013 05/24/2019 DVT (deep venous thrombosis) 03/27/2011 Acute embolism and thrombosi s of deep vein of distal lower extremity 10/12/2010 02/08/2019 Anemia 08/06/2010 02/08/2019 Hypomagnesemia 07/24/2010 02/18/2018 Trochanteric bursitis 04/04/2010 03/13/2016 documented as of this encounter (statuses as of 02/14/2022) [facility] of Past illness Narrative* Problem Noted Date Resolved Date Appendicitis 12/18/2019 12/29/2020 Last Assessment & Plan: Assessment: Acute appendicitis PLAN: - S/P open appendectomy, POD 2 - CLD x 2 days - Pain and nausea control, adequately managed - Likely DC 12/21 Plan to be discussed with Dr. Ansari. Cardiomyopathy, nonischemic 02/08/201905/12 Overview: associated with atrial fibrillation--well controlled. Nuclear treadmill stress test 06/2018: EF >60% at 13 METS Abdominal wall hernia 02/26/2013 05/24/2019 DVT (deep venous thrombosis) 03/27/2011 Acute embolism and thrombosi s of deep vein of distal lower extremity 10/12/2010 02/08/2019 Anemia 08/06/2010 02/08/2019 Hypomagnesemia 07/24/2010 02/18/2018 Trochanteric bursitis 04/04/2010 03/13/2016 documented as of this encounter (statuses as of 02/19/2022) [facility] of Past illness Narrative* Problem Noted Date Resolved Date Appendicitis 12/18/2019 12/29/2020 Last Assessment & Plan: Assessment: Acute appendicitis PLAN: - S/P open appendectomy, POD 2 - CLD x 2 days - Pain and nausea control, adequately managed - Likely DC 12/21 Plan to be discussed with Dr. Ansari. Cardiomyopathy, nonischemic 02/08/201905/12 Overview: associated with atrial fibrillation--well controlled. Nuclear treadmill stress test 06/2018: EF >60% at 13 METS Abdominal wall hernia 02/26/2013 05/24/2019 DVT (deep venous thrombosis) 03/27/2011 Acute embolism and thrombosi s of deep vein of distal lower extremity 10/12/2010 02/08/2019 Anemia 08/06/2010 02/08/2019 Hypomagnesemia 07/24/2010 02/18/2018 Trochanteric bursitis 04/04/2010 03/13/2016 documented as of this encounter (statuses as of 02/20/2022) [facility] of Past illness Narrative* Problem Noted Date Resolved Date Appendicitis 12/18/2019 12/29/2020 Last Assessment & Plan: Assessment: Acute appendicitis PLAN: - S/P open appendectomy, POD 2 - CLD x 2 days - Pain and nausea control, adequately managed - Likely DC 12/21 Plan to be discussed with Dr. Ansari. Cardiomyopathy, nonischemic 02/08/201905/12 Overview: associated with atrial fibrillation--well controlled. Nuclear treadmill stress test 06/2018: EF >60% at 13 METS Abdominal wall hernia 02/26/2013 05/24/2019 DVT (deep venous thrombosis) 03/27/2011 Acute embolism and thrombosi s of deep vein of distal lower extremity 10/12/2010 02/08/2019 Anemia 08/06/2010 02/08/2019 Hypomagnesemia 07/24/2010 02/18/2018 Trochanteric bursitis 04/04/2010 03/13/2016 documented as of this encounter (statuses as of 03/11/2022) [facility] Narrative* Problem Noted Date Resolved Date Appendicitis 12/18/2019 12/29/2020 Last Assessment & Plan: Assessment: Acute appendicitis PLAN: - S/P open appendectomy, POD 2 - CLD x 2 days - Pain and nausea control, adequately managed - Likely DC 12/21 Plan to be discussed with Dr. Ansari. Cardiomyopathy, nonischemic 02/08/201905/12 Overview: associated with atrial fibrillation--well controlled. Nuclear treadmill stress test 06/2018: EF >60% at 13 METS Abdominal wall hernia 02/26/2013 05/24/2019 DVT (deep venous thrombosis) 03/27/2011 Acute embolism and thrombosi s of deep vein of distal lower extremity 10/12/2010 02/08/2019 Anemia 08/06/2010 02/08/2019 Hypomagnesemia 07/24/2010 02/18/2018 Trochanteric bursitis 04/04/2010 03/13/2016 documented as of this encounter (statuses as of 03/25/2022) [facility] Past illness Narrative* Problem Noted Date Resolved Date Appendicitis 12/18/2019 12/29/2020 Last Assessment & Plan: Assessment: Acute appendicitis PLAN: - S/P open appendectomy, POD 2 - CLD x 2 days - Pain and nausea control, adequately managed - Likely DC 12/21 Plan to be discussed with Dr. Ansari. Cardiomyopathy, nonischemic 02/08/201905/12 Overview: associated with atrial fibrillation--well controlled. Nuclear treadmill stress test 06/2018: EF >60% at 13 METS Abdominal wall hernia 02/26/2013 05/24/2019 DVT (deep venous thrombosis) 03/27/2011 Acute embolism and thrombosi s of deep vein of distal lower extremity 10/12/2010 02/08/2019 Anemia 08/06/2010 02/08/2019 Hypomagnesemia 07/24/2010 02/18/2018 Trochanteric bursitis 04/04/2010 03/13/2016 documented as of this encounter (statuses as of 05/21/2022) [facility] of Past illness Narrative* Problem Noted Date Resolved Date Appendicitis 12/18/2019 12/29/2020 Last Assessment & Plan: Assessment: Acute appendicitis PLAN: - S/P open appendectomy, POD 2 - CLD x 2 days - Pain and nausea control, adequately managed - Likely DC 12/21 Plan to be discussed with Dr. Ansari. Cardiomyopathy, nonischemic 02/08/201905/12 Overview: associated with atrial fibrillation--well controlled. Nuclear treadmill stress test 06/2018: EF >60% at 13 METS Abdominal wall hernia 02/26/2013 05/24/2019 DVT (deep venous thrombosis) 03/27/2011 Acute embolism and thrombosi s of deep vein of distal lower extremity 10/12/2010 02/08/2019 Anemia 08/06/2010 02/08/2019 Hypomagnesemia 07/24/2010 02/18/2018 Trochanteric bursitis 04/04/2010 03/13/2016 documented as of this encounter (statuses as of 05/22/2022) [facility] of Past illness Narrative* Problem Noted Date Resolved Date Appendicitis 12/18/2019 12/29/2020 Last Assessment & Plan: Assessment: Acute appendicitis PLAN: - S/P open appendectomy, POD 2 - CLD x 2 days - Pain and nausea control, adequately managed - Likely DC 12/21 Plan to be discussed with Dr. Ansari. Cardiomyopathy, nonischemic 02/08/201905/12 Overview: associated with atrial fibrillation--well controlled. Nuclear treadmill stress test 06/2018: EF >60% at 13 METS Abdominal wall hernia 02/26/2013 05/24/2019 DVT (deep venous thrombosis) 03/27/2011 Acute embolism and thrombosi s of deep vein of distal lower extremity 10/12/2010 02/08/2019 Anemia 08/06/2010 02/08/2019 Hypomagnesemia 07/24/2010 02/18/2018 Trochanteric bursitis 04/04/2010 03/13/2016 documented as of this encounter (statuses as of 05/24/2022) [facility] of Past illness Narrative* Problem Noted Date Resolved Date Appendicitis 12/18/2019 12/29/2020 Last Assessment & Plan: Assessment: Acute appendicitis PLAN: - S/P open appendectomy, POD 2 - CLD x 2 days - Pain and nausea control, adequately managed - Likely DC 12/21 Plan to be discussed with Dr. Ansari. Cardiomyopathy, nonischemic 02/08/201905/12 Overview: associated with atrial fibrillation--well controlled. Nuclear treadmill stress test 06/2018: EF >60% at 13 METS Abdominal wall hernia 02/26/2013 05/24/2019 DVT (deep venous thrombosis) 03/27/2011 Acute embolism and thrombosi s of deep vein of distal lower extremity 10/12/2010 02/08/2019 Anemia 08/06/2010 02/08/2019 Hypomagnesemia 07/24/2010 02/18/2018 Trochanteric bursitis 04/04/2010 03/13/2016 documented as of this encounter (statuses as of 05/31/2022) [facility] of Past illness Narrative* Problem Noted Date Resolved Date Appendicitis 12/18/2019 12/29/2020 Last Assessment & Plan: Assessment: Acute appendicitis PLAN: - S/P open appendectomy, POD 2 - CLD x 2 days - Pain and nausea control, adequately managed - Likely DC 12/21 Plan to be discussed with Dr. Ansari. Cardiomyopathy, nonischemic 02/08/201905/12 Overview: associated with atrial fibrillation--well controlled. Nuclear treadmill stress test 06/2018: EF >60% at 13 METS Abdominal wall hernia 02/26/2013 05/24/2019 DVT (deep venous thrombosis) 03/27/2011 Acute embolism and thrombosi s of deep vein of distal lower extremity 10/12/2010 02/08/2019 Anemia 08/06/2010 02/08/2019 Hypomagnesemia 07/24/2010 02/18/2018 Trochanteric bursitis 04/04/2010 03/13/2016 documented as of this encounter (statuses as of 06/04/2022) [facility] of Past illness Narrative* Problem Noted Date Resolved Date Appendicitis 12/18/2019 12/29/2020 Last Assessment & Plan: Assessment: Acute appendicitis PLAN: - S/P open appendectomy, POD 2 - CLD x 2 days - Pain and nausea control, adequately managed - Likely DC 12/21 Plan to be discussed with Dr. Ansari. Cardiomyopathy, nonischemic 02/08/201905/12 Overview: associated with atrial fibrillation--well controlled. Nuclear treadmill stress test 06/2018: EF >60% at 13 METS Abdominal wall hernia 02/26/2013 05/24/2019 DVT (deep venous thrombosis) 03/27/2011 Acute embolism and thrombosi s of deep vein of distal lower extremity 10/12/2010 02/08/2019 Anemia 08/06/2010 02/08/2019 Hypomagnesemia 07/24/2010 02/18/2018 Trochanteric bursitis 04/04/2010 03/13/2016 documented as of this encounter (statuses as of 06/06/2022) [facility] History of Past illness Narrative* Problem Noted Date Diagnosed Date Resolved Date Appendicitis 12/18/2019 12/29/2020 Last Assessment & Plan: Assessment: Acute appendicitis PLAN: - S/P open appendectomy, POD 2 - CLD x 2 days - Pain and nausea control, adequately managed - Likely DC 8 Plan to be discussed with Dr. Ansari. Cardiomyopathy, nonischemic 02/08/2019 05/24/2019 Overview: associated with atrial fibrillation--well controlled. Nuclear treadmill stress test 06/2018: EF >60% at 13 METS Abdominal wall hernia 02/26/20132019 DVT (deep venous thrombosis) 03/27/2011 03/10/2017 Acute embolism and thrombosi s of deep vein of distal lower extremity 10/12/2010 02/08/2019 Anemia 08/06/2010 02/08/2019 Hypomagnesemia 07/24/2010 02/18/2018 Trochanteric bursitis 04/04/20102015 documented as of this encounter (statuses as of 01/02/2023) [facility] History of Past illness Narrative* Problem Noted Date Diagnosed Date Resolved Date Appendicitis 12/18/2019 12/29/2020 Last Assessment & Plan: Assessment: Acute appendicitis PLAN: - S/P open appendectomy, POD 2 - CLD x 2 days - Pain and nausea control, adequately managed - Likely DC 12/21 Plan to be discussed with Dr. Ansari. Cardiomyopathy, nonischemic 02/08/2019 05/24/2019 Overview: associated with atrial fibrillation--well controlled. Nuclear treadmill stress test 06/2018: EF >60% at 13 METS Abdominal wall hernia 02/26/20132019 DVT (deep venous thrombosis) 03/27/2011 03/10/2017 Acute embolism and thrombosi s of deep vein of distal lower extremity 10/12/2010 02/08/2019 Anemia 08/06/2010 02/08/2019 Hypomagnesemia 07/24/2010 02/18/2018 Trochanteric bursitis 04/04/20102015 documented as of this encounter (statuses as of 01/02/2023) [facility] History of Past illness Narrative* Problem Noted Date Diagnosed Date Resolved Date Appendicitis 12/18/2019 12/29/2020 Last Assessment & Plan: Assessment: Acute appendicitis PLAN: - S/P open appendectomy, POD 2 - CLD x 2 days - Pain and nausea control, adequately managed - Likely DC 12/21 Plan to be discussed with Dr. Ansari. Cardiomyopathy, nonischemic 02/08/2019 05/24/2019 Overview: associated with atrial fibrillation--well controlled. Nuclear treadmill stress test 06/2018: EF >60% at 13 METS Abdominal wall hernia 02/26/20132019 DVT (deep venous thrombosis) 03/27/2011 03/10/2017 Acute embolism and thrombosi s of deep vein of distal lower extremity 10/12/2010 02/08/2019 Anemia 08/06/2010 02/08/2019 Hypomagnesemia 07/24/2010 02/18/2018 Trochanteric bursitis 04/04/20102015 documented as of this encounter (statuses as of 01/03/2023) [facility] History of Past illness Narrative* Problem Noted Date Diagnosed Date Resolved Date Appendicitis 12/18/2019 12/29/2020 Last Assessment & Plan: Assessment: Acute appendicitis PLAN: - S/P open appendectomy, POD 2 - CLD x 2 days - Pain and nausea control, adequately managed - Likely DC 12/21 Plan to be discussed with Dr. Ansari. Cardiomyopathy, nonischemic 02/08/2019 05/24/2019 Overview: associated with atrial fibrillation--well controlled. Nuclear treadmill stress test 06/2018: EF >60% at 13 METS Abdominal wall hernia 02/26/20132019 DVT (deep venous thrombosis) 03/27/2011 03/10/2017 Acute embolism and thrombosi s of deep vein of distal lower extremity 10/12/2010 02/08/2019 Anemia 08/06/2010 02/08/2019 Hypomagnesemia 07/24/2010 02/18/2018 Trochanteric bursitis 04/04/20102015 documented as of this encounter (statuses as of 03/07/2023) [facility] History of Past illness Narrative* Problem Noted Date Diagnosed Date Resolved Date Appendicitis 12/18/2019 12/29/2020 Last Assessment & Plan: Assessment: Acute appendicitis PLAN: - S/P open appendectomy, POD 2 - CLD x 2 days - Pain and nausea control, adequately managed - Likely DC 12/21 Plan to be discussed with Dr. Ansari. Cardiomyopathy, nonischemic 02/08/2019 05/24/2019 Overview: associated with atrial fibrillation--well controlled. Nuclear treadmill stress test 06/2018: EF >60% at 13 METS Abdominal wall hernia 02/26/20132019 DVT (deep venous thrombosis) 03/27/2011 03/10/2017 Acute embolism and thrombosi s of deep vein of distal lower extremity 10/12/2010 02/08/2019 Anemia 08/06/2010 02/08/2019 Hypomagnesemia 07/24/2010 02/18/2018 Trochanteric bursitis 04/04/20102015 documented as of this encounter (statuses as of 03/26/2023) [facility]2020 History of Past illness Narrative* Problem Noted Date Diagnosed Date Resolved Date Appendicitis 12/18/2019 12/29/2020 Last Assessment & Plan: Assessment: Acute appendicitis PLAN: - S/P open appendectomy, POD 2 - CLD x 2 days - Pain and nausea control, adequately managed - Likely DC 12/21 Plan to be discussed with Dr. Ansari. Cardiomyopathy, nonischemic 02/08/2019 05/24/2019 Overview: associated with atrial fibrillation--well controlled. Nuclear treadmill stress test 06/2018: EF >60% at 13 METS Abdominal wall hernia 02/26/20132019 DVT (deep venous thrombosis) 03/27/2011 03/10/2017 Acute embolism and thrombosi s of deep vein of distal lower extremity 10/12/2010 02/08/2019 Anemia 08/06/2010 02/08/2019 Hypomagnesemia 07/24/2010 02/18/2018 Trochanteric bursitis 04/04/20102015 documented as of this encounter (statuses as of 03/27/2023) [facility] History of Past illness Narrative* Problem Noted Date Diagnosed Date Resolved Date Appendicitis 12/18/2019 12/29/2020 Last Assessment & Plan: Assessment: Acute appendicitis PLAN: - S/P open appendectomy, POD 2 - CLD x 2 days - Pain and nausea control, adequately managed - Likely DC 12/21 Plan to be discussed with Dr. Ansari. Cardiomyopathy, nonischemic 02/08/2019 05/24/2019 Overview: associated with atrial fibrillation--well controlled. Nuclear treadmill stress test 06/2018: EF >60% at 13 METS Abdominal wall hernia 02/26/20132019 DVT (deep venous thrombosis) 03/27/2011 03/10/2017 Acute embolism and thrombosi s of deep vein of distal lower extremity 10/12/2010 02/08/2019 Anemia 08/06/2010 02/08/2019 Hypomagnesemia 07/24/2010 02/18/2018 Trochanteric bursitis 04/04/20102015 documented as of this encounter (statuses as of 04/02/2023) [facility] History of Past illness Narrative* Problem Noted Date Diagnosed Date Resolved Date Appendicitis 12/18/2019 12/29/2020 Last Assessment & Plan: Assessment: Acute appendicitis PLAN: - S/P open appendectomy, POD 2 - CLD x 2 days - Pain and nausea control, adequately managed - Likely DC 12/21 Plan to be discussed with Dr. Ansari. Cardiomyopathy, nonischemic 02/08/2019 05/24/2019 Overview: associated with atrial fibrillation--well controlled. Nuclear treadmill stress test 06/2018: EF >60% at 13 METS Abdominal wall hernia 02/26/20132019 DVT (deep venous thrombosis) 03/27/2011 03/10/2017 Acute embolism and thrombosi s of deep vein of distal lower extremity 10/12/2010 02/08/2019 Anemia 08/06/2010 02/08/2019 Hypomagnesemia 07/24/2010 02/18/2018 Trochanteric bursitis 04/04/20102015 documented as of this encounter (statuses as of 04/14/2023) [facility] History of Past illness Narrative* Problem Noted Date Diagnosed Date Resolved Date Appendicitis 12/18/2019 12/29/2020 Last Assessment & Plan: Assessment: Acute appendicitis PLAN: - S/P open appendectomy, POD 2 - CLD x 2 days - Pain and nausea control, adequately managed - Likely DC 12/21 Plan to be discussed with Dr. Ansari. Cardiomyopathy, nonischemic 02/08/2019 05/24/2019 Overview: associated with atrial fibrillation--well controlled. Nuclear treadmill stress test 06/2018: EF >60% at 13 METS Abdominal wall hernia 02/26/20132019 DVT (deep venous thrombosis) 03/27/2011 03/10/2017 Acute embolism and thrombosi s of deep vein of distal lower extremity 10/12/2010 02/08/2019 Anemia 08/06/2010 02/08/2019 Hypomagnesemia 07/24/2010 02/18/2018 Trochanteric bursitis 04/04/20102015 documented as of this encounter (statuses as of 04/23/2023) [facility] History of Past illness Narrative* Problem Noted Date Diagnosed Date Resolved Date Appendicitis 12/18/2019 12/29/2020 Last Assessment & Plan: Assessment: Acute appendicitis PLAN: - S/P open appendectomy, POD 2 - CLD x 2 days - Pain and nausea control, adequately managed - Likely DC 12/21 Plan to be discussed with Dr. Ansari. Cardiomyopathy, nonischemic 02/08/2019 05/24/2019 Overview: associated with atrial fibrillation--well controlled. Nuclear treadmill stress test 06/2018: EF >60% at 13 METS Abdominal wall hernia 02/26/20132019 DVT (deep venous thrombosis) 03/27/2011 03/10/2017 Acute embolism and thrombosi s of deep vein of distal lower extremity 10/12/2010 02/08/2019 Anemia 08/06/2010 02/08/2019 Hypomagnesemia 07/24/2010 02/18/2018 Trochanteric bursitis 04/04/20102015 documented as of this encounter (statuses as of 07/25/2023) [facility]2020 History of Past illness Narrative* Problem Noted Date Diagnosed Date Resolved Date Appendicitis 12/18/2019 12/29/2020 Last Assessment & Plan: Assessment: Acute appendicitis PLAN: - S/P open appendectomy, POD 2 - CLD x 2 days - Pain and nausea control, adequately managed - Likely DC 12/21 Plan to be discussed with Dr. Ansari. Cardiomyopathy, nonischemic 02/08/2019 05/24/2019 Overview: associated with atrial fibrillation--well controlled. Nuclear treadmill stress test 06/2018: EF >60% at 13 METS Abdominal wall hernia 02/26/20132019 DVT (deep venous thrombosis) 03/27/2011 03/10/2017 Acute embolism and thrombosi s of deep vein of distal lower extremity 10/12/2010 02/08/2019 Anemia 08/06/2010 02/08/2019 Hypomagnesemia 07/24/2010 02/18/2018 Trochanteric bursitis 04/04/20102015 documented as of this encounter (statuses as of 07/29/2023) [facility] Marbella [facility] March 27, 2023 12:20pm Note Date/Time March 27, 2023 12:20pm [facility] Medical Records Department [address] [place] [address] Counseling Note - Pharmacy 03/27/23 1220 MR#: [id number] Acct: [id number] Name: JERAMY WOOD Rep #:[id number] : 1960 62 From: Marbella Archer PCP: Dr. Shan Christianson MD Status:ADM IN Y Location: [address] Pharmacy [facility] has performed discharge medication reconciliation and counseling for this patient. The patient was counseled on the following discharge medications and changes in medications for homegoing were reviewed. 1. ASPIRIN 2. BRILINTA 3. LIPITOR The Reason for Use, instructions for use, and potential side effects were reviewed for all new medications. The patient's questions regarding all of their medications were answered. The patient was able to verbally demonstrate an understanding of their dischargemedications. The patient's discharge medication list was reviewed for discrepancies and discrepancies were resolved. Medications at Discharge Home Medications diphenhydramine HCl 50 mg capsule 50 mg PO QHS 12/26/21 flecainide 100 mg tablet 100 mg PO BID #180 tabs 03/18/23 metoprolol tartrate 25 mg tablet 25 mg PO BID #180 tabs 03/18/23 aspirin 81 mg tablet,delayed release 81 mg PO BREAKFAST #90 tabs 03/27/23 atorvastatin 80 mg tablet 80 mg PO QHS #90 tabs 03/27/23 ticagrelor 90 mg tablet (Brilinta) 90 mg PO BID 90 days #180 tabs 03/27/23 03/27/23 1220 <Electronically signed by Marbella Archer > Date _ Marbella Archer Cosigner Signature (if applicable): Date CC: ~ Signed [facility] Work Phone: Discharge summary Author Esteban Taylor [facility] March 27, 2023 11:38am Note Date/Time March 27, 2023 11:38am [facility] Medical Records Department [address] [place] [address] Discharge Summary 03/27/23 1136 MR#: [id number] Acct: [id number] Name: JERAMY WOOD Rep #:[id number] : 1960 62 From: Esteban Taylor MD PCP: Dr. Shan Christianson MD Status:ADM IN Location: [place] [id number] Providers Date of Admission: 03/25/23 Date of Discharge: 03/27/23 Primary Care Physician: Dr. Shan Christianson MD Consultations 03/25/23 06:20 Consult: Cardiology Routine Consulting Provider: Darin Alexander Reason for Consult: CP with Troponin rise EMERGENT Consult: No MD Notified: Yes Date Notified: 03/25/23 Time Notified: 06:20 Method of Notification: Text Reason For Visit: CHEST PAIN Diagnosis Discharge Diagnosis (1) Chest pain: Status: Acute Code(s): R07.9 - Chest pain, unspecified Qualifiers: Chest pain type: chest pain due to myocardial ischemia Ischemic chest pain type: unstable angina pectoris Qualified Code(s): I20.0 - Unstable angina Plan Patient is a 62-year-old gentleman admitted with chest pain with elevated troponin 1. Acute non-STEMI ? Treatment initiated per protocol admitted to a monitored bed consult placed tocardiology plans for patient to undergo left heart catheterization. Echo demonstrated EF of 50 to 55% 03/27/2023;Patient underwent left heart catheterization with successful PCI of high-grade 90% stenosis of the mid LAD with a JUAN LUIS. Plan is for patient to be assessed for discharge 2. Chronic thrombocytopenia Chronic we will continue with monitoring 3. Paroxysmal atrial fibrillation Did continue home meds including metoprolol and flecainide.[id number] score islow at 0 therefore not anticoagulated 4. Dyslipidemia ?Patient is on statin therapy, continued at home dose 5. History of nonischemic cardiomyopathy -This has resolved with his last EF being 60% on echo from 04/26/2014 -Continue outpatient cardiology follow-up 6. DVT prophylaxis -Subcu Lovenox Time spent in the patient's overall evaluation,decision-making process, review of diagnostic data, adjustment of management, discussion with other providers, nursing nursing and ancillary staff involved in patient's care documentation, 40 Minutes Medications at Discharge Home Medications diphenhydramine HCl 50 mg capsule 50 mg PO QHS 12/26/21 flecainide 100 mg tablet 100 mg PO BID #180 tabs 03/18/23 metoprolol tartrate 25 mg tablet 25 mg PO BID #180 tabs 03/18/23 aspirin 81 mg tablet,delayed release 81 mg PO BREAKFAST #90 tabs 03/27/23 atorvastatin 80 mg tablet 80 mg PO QHS #90 tabs 03/27/23 ticagrelor 90 mg tablet (Brilinta) 90 mg PO BID 90 days #180 tabs 03/27/23 Hospital Course Procedures 2-D Echocardiogram and Cardiac catheterization Summary of Care Provided Minutes Spent on Discharge: 40 Physical Exam Narrative GENERAL: cooperative HEENT: Atraumatic; normocephalic EYES; Anicteric, Normal Conjunctiva NECK; supple, normal thyroid, RESPIRATORY: Diminished to auscultation CARDIOVASCULAR: Regular S1 S2, GI: soft, normoactive bowel sounds, : No Renal angle tenderness; EXTREMITIES: No edema, no clubbing, MUSCULOSKELETAL: no muscle wasting NEURO: Awake; no lateralizing signs. SKIN: No Rash PSYCH; Flat affect Weight / BMI Weight Weight: 87.1 kg Body Mass Index (BMI) 26.0 ABG / Lab / Microbiology Data 03/27/23 07:34 03/27/23 07:34 Laboratory: Laboratory Results - last 24 hr 03/26/23 12:34: Activated Clotting Time 287 H 03/27/23 07:34: WBC 6.5, RBC 4.73, Hgb 14.9, Hct 43.8, MCV 92.6, MCH 31.5, MCHC 34.0, RDW Std Deviation 42.2, RDW Coeff of Lance 12.4, Plt Count 138 L, MPV 9.2, Sodium 139, Potassium 3.9, Chloride 110 H, Carbon Dioxide 24.0, Anion Gap 5, BUN16, Creatinine 1.12, Estim Creat Clear Calc 75.06, Est GFR (MDRD) Af Amer 85, Est GFR (MDRD) Non-Af 71, BUN/Creatinine Ratio 14.3, Glucose 92, Calcium 8.7, Total Bilirubin 0.60, AST 23, ALT 31, Alkaline Phosphatase 68, Total Protein 6.6, Albumin 3.5, Globulin 3.1, Albumin/Globulin Ratio 1.1 D/C Instructions Discharge Diet: Low fat / Low cholesterol Discharge Activity: Return to Normal Activity Call your doctor if you observe: Fever of 101 or Higher, Shortness of breath, Fainting spells and Chest pain Meaningful Use Info Meaningful Use Diagnoses (Choose all that apply): AMI AMI/Post PCI/Angioplasty Aspirin given w/in 24hrs of arrival?: Yes ASA at discharge?: Yes Antiplatelet Therapy at Discharge:: Yes Statins at discharge?: Yes Can/ARB at discharge?: No Reason Can/ARB not ordered:: Not indicated Beta Asuncion at discharge?: Yes Done w/ Acute NM measure.: Yes Documented LVEF (%): 55 Discharge Plan Admission Admit Date/Time: 03/25/23 17:11 Attending Provider: Esteban Taylor Primary Care Provider: Shan Christianson Consulting Providers: Mary Ellen Edmondson; Darin Alexander; Claudia Johnson Instructions Patient Instructions: ED Chest Pain, Uncertain Cause, ED Pain, Acute, UncertainCause Discharge Orders/Prescriptions Prescriptions: New Brilinta 90 mg Tablet 90 mg PO BID 90 Days Qty: 180 0RF atorvastatin 80 mg Tablet 80 mg PO QHS Qty: 90 0RF aspirin 81 mg Tablet,Delayed Release (Dr/Ec) 81 mg PO BREAKFAST Qty: 90 0RF Continued diphenhydramine HCl 50 mg capsule 50 mg PO QHS metoprolol tartrate 25 mg tablet 25 mg PO BID Qty: 180 3RF flecainide 100 mg tablet 100 mg PO BID Qty: 180 3RF Discontinued pravastatin 10 mg tablet 10 mg PO QHS Qty: 90 3RF Referrals / Follow Up: Shan Christianson MD [Primary Care Provider] - Within 2 Weeks Markus Mayorga NP, [employer] [Med Staff - Adv Practice Prof] - 04/22/23 10:00 am Disposition Disposition (needs filled in before D/C Order can be placed): Home, Self Care Charges/Coding Visit Charges Inpatient E&M: 40031 Disch Hosp >30min 03/27/23 1138 <Electronically signed by Esteban Taylor MD> Cosigner Signature (if applicable): CC: Dr. Esteban Taylor MD; Dr. Shan Christianson MD~ Signed [facility] Work Phone: Evaluation note* Diagnosis Well adult exam- Primary Routine general medical examination at a health care facility Hyperlipidemia, unspecified hyperlipidemia type Paroxysmal atrial fibrillation (HCC) Atrial fibrillation Acquired abdominal wall defect Acquired musculoskeletal deformity of other specified site Benign prostatic hyperplasia with urinary frequency Abdominal wall pain Abdominal pain, unspecified site Screening for colon cancer Special screening for malignant neoplasms, colon [facility] Diagnosis Mixed hyperlipidemia- Primary Anxiety Anxiety state, unspecified Paroxysmal atrial fibrillation (HCC) Atrial fibrillation Acquired abdominal wall defect Acquired musculoskeletal deformity of other specified site Encounter for immunization Need for other specified prophylactic vaccination against single bacterial disease Medication management Encounter for long-term (current) use of other medications Encounter for screening for diabetes mellitus Screening for diabetes mellitus Need for vaccination Need for prophylactic vaccination and inoculation against unspecified single disease [facility]* Diagnosis Onset Date 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 Paroxysmal atrial fibrillation chronic Pure hypercholesterolemia ch ronic Cardiomyopathy in other diseases classified elsewhere resolved [facility] Work Phone: Evaluation note* Diagnosis Gross hematuria- Primary Flu-like symptoms Other general symptoms [facility]* Diagnosis Onset Date Resolution Status senior living current use of antiarrhythmic drug acute Paroxysmal atrial fibrillation chronic Pure hypercholesterolemia ch ronic Cardiomyopathy in other diseases classified elsewhere resolved Acute cystitis acute GO (acute kidney injury) ac claudia Bacteremia acute Diarrhea acute Hemorrhagic cystitis acute [facility] Work Phone: Evaluation note* Diagnosis Acute cystitis with hematuria- Primary Acute cystitis GO (acute kidney injury) (HCC) Acute kidney failure, unspecified Paroxysmal atrial fibrillation (HCC) Atrial fibrillation Medication management Encounter for long-term (current) use of other medications Encounter for immunization Need for other specified prophylactic vaccination against single bacterial disease [facility]* Diagnosis Renal insufficiency- Primary Unspecified disorder of kidney and ureter documented [facility] this [facility]* Diagnosis Screening for colon cancer Special screening for malignant neoplasms, colon [facility] Diagnosis Onset Date Resolution Status Acute cystitis resolved GO (acute kidney injury) re solved Bacteremia resolved Diarrhea resolved Acute cystitis without hematuria acute Acute hypotension acute Fever acute Prostatitis, acute acute SIRS (systemic inflammatory response syndrome) acute [facility] Work Phone: Evaluation note* Diagnosis Acute cystitis without hematuria- Primary Acute cystitis Hypokalemia Hypopotassemia Benign prostatic hyperplasia with urinary retention Paroxysmal atrial fibrillation (HCC) Atrial fibrillation documented in this encounter [facility]* Diagnosis Elevated liver function tests- Primary Other abnormal blood chemistry documented [facility] this encounter [facility]* Diagnosis Persistent cough- Primary Cough Chronic cough Cough documented in this encounter [facility] note* Diagnosis Persistent cough Cough documented in this encounter [facility] noteNo assessment information [facility] Work Phone: evaluation note* Diagnosis Well adult exam- Primary Routine general medical examination at a health care facility Mixed hyperlipidemia Paroxysmal atrial fibrillation (HCC) Atrial fibrillation Benign prostatic hyperplasia with urinary frequency Benign prostatic hyperplasia with urinary retention Abdominal wall pain Abdominal pain, unspecified site Acquired abdominal wall defect Acquired musculoskeletal deformity of other specified site Prostate cancer (HCC) Malignant neoplasm of prostate documented in this encounter [facility] note* Diagnosis Onset Date Resolution Status Paroxysmal atrial fibrillation chronic Pure hypercholesterolemia ch ronic Cardiomyopathy in other diseases classified elsewhere resolved Chest pain acute Thoracic back pain [facility] Work Phone: Evaluation note* Diagnosis Onset Date Resolution Status Paroxysmal atrial fibrillation chronic Pure hypercholesterolemia ch ronic Cardiomyopathy in other diseases classified elsewhere resolved Chest pain acute NSTEMI (non-ST elevated myocardial infarction) acute Thoracic back pain acute Paroxysmal atrial fibrillation chronic Pure hypercholesterolemia [facility] Work Phone: evaluation note* Diagnosis Hospital discharge follow-up- Primary Other follow-up examination Non-STEMI (non-ST elevated myocardial infarction) ([facility]) Acute myocardial infarction, subendocardial infarction, episode of care unspecified S/P drug eluting coronary stent placement Postsurgical percutaneous transluminal coronary angioplasty status documented in this encounter [facility] note* Diagnosis Onset Date Resolution Status Paroxysmal atrial fibrillation chronic Pure hypercholesterolemia ch ronic Cardiomyopathy in other dise ases classified elsewhere resolved Paroxysmal atrial fibrillation chronic Pure hypercholesterolemia ch ronic Chest pain resolved NSTEMI (non-ST elevated myoc ardial infarction) resolved Thoracic back pain resolved Stented coronary artery March 26, 2023 acute Paroxysmal atrial fibrillation chronic Pure hypercholesterolemia [facility] Work Phone: Evaluation note* Diagnosis Onset Date Resolution Status Paroxysmal atrial fibrillation chronic Pure hypercholesterolemia ch ronic Chest pain resolved NSTEMI (non-ST elevated myoc ardial infarction) resolved Thoracic back pain resolved Stented coronary artery March 26, 2023 acute Paroxysmal atrial fibrillation chronic Pure hypercholesterolemia [facility] Work Phone: Evaluation note* Diagnosis Acute pain of right knee- Primary documented in this encounter [facility]* Diagnosis Family history of colon cancer in mother- Primary Hematochezia Blood in stool External hemorrhoid External hemorrhoids without mention of complication documented [facility] this encounter [facility]* Diagnosis Non-STEMI (non-ST elevated myocardial infarction) (HCC)- Primary Acute myocardial infarction, subendocardial infarction, episode of care unspecified Benign prostatic hyperplasia with urinary retention Paroxysmal atrial fibrillation (HCC) Atrial fibrillation Mixed hyperlipidemia S/P drug eluting coronary stent placement Postsurgical percutaneous transluminal coronary angioplasty status Prostate cancer (HCC) Malignant neoplasm of prostate Abdominal wall pain Abdominal pain, unspecified site Acquired abdominal wall defect Acquired musculoskeletal deformity of other specified site documented [facility] this encounter [facility]* Diagnosis Acute pain of right knee documented in this encounter [facility]* Diagnosis Bacterial pneumonia- Primary Bacterial pneumonia, unspecified Scattered respiratory crackles of right lung Bacterial pneumonia Bacterial pneumonia, unspecified Scattered respiratory crackles of right lung documented [facility]* Diagnosis Bacterial pneumonia Bacterial pneumonia, unspecified Scattered respiratory crackles of right lung documented in this encounter [facility]* Diagnosis Productive cough- Primary Cough Bacterial pneumonia Bacterial pneumonia, unspecified Productive cough Cough documented [facility] this encounter [facility]* Diagnosis Productive cough- Primary Cough documented in this encounter [facility] note* Diagnosis Productive cough Cough [facility] Author Mary Ellen Edmondson [facility] March 25, 2023 12:48am Note Date/Time March 25, 2023 12:22am [facility] Medical Records Department [address] [place] [id number] H&P Exam - Hospitalist 03/25/23 0021 MR#: [id number] Acct: [id number] Name: JERAMY WOOD Rep #:[id number] : 1960 62 From: Mary Ellen Edmondson DO PCP: Dr. Shan Christianson MD Status:ADM CASIMIRO Location: [place] [address] HPI - General General Date of Admission: 03/25/23 Date of Service: 03/25/23 Chief Complaint: Chest Pain HPI Narrative JERAMY WOOD, is a 62 M who presented to the emergency department at [facility] on 03/25/2023 complaining of chest pressure. Patient states he has had several episodes of this and is typically been happening in the morning however today he had several bouts of this. He has no associated symptoms but does complain that it is located in his central chest and radiates to his upper back and between his scapula bilaterally but favors the left slightly. He has no personal history of coronary disease however he had a brother that had stent placements and his first stent was placed when he was 60 years old. He does not utilize tobacco. He does have a history of paroxysmal atrial fibrillation for which he takes flecainide but is not anticoagulated as his [id number] score is 0. He had 3 episodes in total today. 1 this morning,1 in the afternoon, and 1 this evening. Patient states he has been able to mow his yard however he has been on a riding mower and not doing any significant physical exertion. His vital signs were unremarkable. His CBC is unremarkable other than thrombocytopenia which appears to be chronic when compared to previous data. His chemistry panel was unremarkable. His initial troponin was 38 with a repeatat 55. D-dimer was less than 0.27. Chest x-ray upon my review was unremarkablehowever radiology did describe a right lower lobe possible infiltrate versus atelectasis. EKG shows normal sinus rhythm with a first-degree heart block and no ST-T wave changes concerning for acute ischemia. With the pain radiating to his back the way that it has been I will get a CTA ofhis chest to rule out dissection. [facility] Medical History Acute embolism and thrombosis of deep vein of distal lower extremity Cardiomyopathy in other diseases classified elsewhere Encounter for screening for COVID-19 Family history of hypertension Hyperlipidemia Palpitations Paroxysmal atrial fibrillation Pure hypercholesterolemia URI (upper respiratory infection) Home Medications diphenhydramine HCl 50 mg capsule 50 mg PO QHS 12/26/21 [History Last Taken Unknown] pravastatin 10 mg tablet 10 mg PO QHS #90 tabs 02/05/23 [Rx Last Taken Unknown] flecainide 100 mg tablet 100 mg PO BID #180 tabs 03/18/23 [Rx Last Taken Unknown] metoprolol tartrate 25 mg tablet 25 mg PO BID #180 tabs 03/18/23 [Rx Last Taken Unknown] Allergy/AdvReac Type Severity Reaction Status Date / Time No Known Allergies Allergy Verified 03/24/23 20:27 Family History Father Martha Gehrig disease Mother Myocardial infarction CAD (coronary artery disease) Brother Myocardial infarction, Onset Age: 60 Hypertension Multiple sclerosis Other Family history of hypertension Surgical History History of appendectomy History of left heart catheterization (LHC) Presence of IVC filter Social History (Updated 03/25/23 @ 00:[address] Mary Ellen Edmondson DO) household members: spouse housing: house Smoking Status: Never smoker alcohol intake: current alcohol intake frequency: a few times a week Alcohol type: beer substance use type: does not use caffeine: Yes Type: coffee Number of servings: 2 what type of physical activity do you participate in: none seatbelt use: always do you feel safe at home: Yes ROS Constitutional Constitutional: Denies anorexia, change in weight, chills, fatigue, fever(s), malaise, night sweats, weakness or other Eyes Eyes: Denies blurry vision, change in eye color, change in vision, discharge from eye(s), double vision, erythema, eye pain, loss of vision or other ENT HEENT: Denies abnormal hearing, dysphagia, ear pain, epistaxis, headache(s), hearing loss, nasal congestion, nasal discharge, post nasal drip, sinus pressure, sore throat or other Cardiovascular Cardiovascular: Reports chest pain; Denies claudication, dyspnea on exertion, edema, lightheadedness, orthopnea, palpitations, paroxysmal nocturnal dyspnea, rapid heart rate, syncope or other Respiratory/Chest Respiratory/Chest: Denies cough, dyspnea, excessive phlegm production, hemoptysis, productive cough, shortness of breath at rest, shortness of breath with exertion, wheezing or other Gastrointestinal Gastrointestinal: Denies abdominal pain, coffee ground emesis, constipation, diarrhea, dyspepsia, hematemesis, hematochezia, loose stools, melena, nausea, vomiting or other Genitourinary Genitourinary: Denies burning urination, difficulty urinating, dysuria, hematuria, nocturia, urinary frequency, urinary hesitancy, urinary incontinence,urinary urgency or other Musculoskeletal Musculoskeletal: Reports back pain; Denies arthralgias, joint pain, joint stiffness, joint swelling, myalgias, neck pain or other Neurologic Neurologic: Denies abnormal gait, abnormal speech, confusion, disequilibrium, dizziness, focal weakness, headache(s), numbness, paresthesias, seizure-like activity, seizures, syncope, tingling, tremor(s) or other Psychiatric Psychiatric: Denies anxiety, depression, homicidal ideation, suicidal ideation or other Endocrine Endocrinology: Denies change in body appearance, cold intolerance, excessive sweating, heat intolerance, polydipsia, polyuria or other Hematologic/Lymphatic Hematologic/Lymphatic: Denies anemia, easy bleeding, easy bruising, lymphadenopathy or other Allergic/Immunologic Allergic/Immunologic: Denies rhinitis, hives, eczemia, asthma or other Vital Signs Vital Signs Vital Signs: 03/24/23 20:28 03/24/23 21:17 03/24/23 21:18 Temperature 98.2 F Temperature Source Temporal Pulse Rate 66 62 Respiratory Rate 14 12 Respiratory Effort Normal Non-Labored Blood Pressure 133/94 H 129/92 H Blood Pressure Mean 107 104 Pulse Ox 96 97 Oxygen Delivery Method Room Air Room Air 03/24/23 22:00 03/24/23 23:00 03/25/23 00:00 Temperature Temperature Source Pulse Rate 72 75 72 Respiratory Rate 17 Respiratory Effort Blood Pressure 121/83 H Blood Pressure Mean 95 Pulse Ox 98 Oxygen Delivery Method Room Air 03/25/23 00:15 Temperature Temperature Source Pulse Rate 74 Respiratory Rate 16 Respiratory Effort Blood Pressure 121/83 H Blood Pressure Mean 95 Pulse Ox 98 Oxygen Delivery Method Weight Weight: 88.5 kg Body Mass Index (BMI) 26.4 Physical Exam Const alert, oriented x3, no apparent distress, average body habitus, healthy appearing and well nourished Constitutional Narrative: Upper middle-aged, white male, sitting up in bed, appears comfortable, nontoxic,appears stated age General Appearance: cooperative HEENT normocephalic, head/scalp atraumatic, hearing grossly normal bilaterally and moist oral mucous membranes HEENT Narrative: Mallampati 2, rash Resp normal respiratory effort, no retractions, no use of accessory muscles and clearto auscultation bilaterally Auscultation: Negative for rales, rhonchi or wheezes Cardio regular rate, regular rhythm, S1 normal heart sound, S2 normal heart sound, no murmurs, no rub, no gallops and no clicks GI normal to inspection, nondistended, normoactive bowel sounds, soft to palpation and non-tender Extremity no clubbing, cyanosis or edema Extremity Narrative: Pedal pulses are 2+ bilaterally, radial pulses are 2+ bilaterally Neuro oriented x3, moves all extremities and no focal motor deficits Speech: speech normal Psych affect normal Psych Narrative: Very pleasant, eye contact is good, patient interacts normally Results Lab / Micro Data 03/24/23 21:20 03/24/23 21:20 Labs: Laboratory Results - last 24 hr 03/24/23 21:20: WBC 7.7, RBC 4.77, Hgb 15.0, Hct 44.3, MCV 92.9, MCH 31.4, MCHC 33.9, RDW Std Deviation 41.7, RDW Coeff of Lance 12.2, Plt Count 149 L, MPV 9.5, Immature Gran % (Auto) 0.400, Neut % (Auto) 49.9, Lymph % (Auto) 34.1, [place] % (Auto) 9.9, Eos % (Auto) 4.9, Baso % (Auto) 0.8, Absolute Neuts (auto) 3.9, Absolute Lymphs (auto) 2.64, Nucleated RBC % 0, D-Dimer Quant (PE/DVT) < 0.27 L,Sodium 138, Potassium 3.9, Chloride 107, Carbon Dioxide 24.0, Anion Gap 7, BUN 20 H, Creatinine 1.22, Estim Creat Clear Calc 68.91, Est GFR (MDRD) Af Amer 77, Est GFR (MDRD) Non-Af 64, BUN/Creatinine Ratio 16.4, Glucose 90, Calcium 8.8, Troponin I High Sens 38 03/24/23 23:30: Troponin I High Sens 55 Radiology Impression Chest X-Ray 03/24/23 21:20 IMPRESSION: Subtle right basilar pulmonary opacity may be atelectasis or pneumonia. Electronically Signed: Will Jacobson DO at 21:34 EST , Assessment & Plan Assessment/Plan (1) Chest pain: (2) Thoracic back pain: PLAN: Plan Chest pain -No associated symptoms however patient does have family history of premature coronary disease in his brother -Check lipids -Continue home statin dose for now -Start aspirin 81 mg daily -Cycle cardiac enzymes -Check CT of the chest to rule out dissection with symptoms radiating to his midthoracic region -Check a.m. treadmill stress test Chronic thrombocytopenia -This appears to be chronic -Etiology is unclear -Recommend outpatient follow-up and work-up -Patient has not had a normal platelet count ever in our system since 2013 and current count appears to be stable when compared to previous History of paroxysmal atrial fibrillation -Continue home flecainide -Continue home metoprolol -[id number] score is low at 0 therefore not anticoagulated -Continue outpatient cardiology follow-up Hyperlipidemia -Continue on pravastatin History of nonischemic cardiomyopathy -This has resolved with his last EF being 60% on echo from 04/26/2014 -Continue outpatient cardiology follow-up DVT prophylaxis -Subcu Lovenox CODE STATUS -Full code Charges/Coding Visit Charges Inpatient E&M: 03103 Init Hosp L2 03/25/23 0048 <Electronically signed by Mary Ellen Edmondson DO> Cosigner Signature (if applicable): CC: Dr. Shan Christianson MD; Dr. Mary Ellen Edmondson DO~ Signed [facility] Work Phone: Reason for referral (narrative)* Outpatient Procedure (Routine) - Closed Specialty Diagnoses / Procedures Referred By Contac t Referred To [facility] Diagnoses Paroxysmal atrial fibrillation (HCC) Medication management Procedures ECG COMPLETE ECG ROUTINE ECG W/LEAST 12 LDS W/I&R Shan Christianson MD [address] [place] [address] [facility] [address] [place] [address] Referral ID Status Reason Start Date Expiration Date V isits Requested Visits Authorized [id number] Closed Auto-Generate d Referral 02/19/2022 02/19/2023 1 1 [facility] for referral (narrative)* Outpatient Procedure (Routine) - Pending Review Specialty Diagnoses / Procedures Referred By Contac t Referred To Contact [facility] Diagnoses Screening for colon cancer Procedures COLONOSCOPY SCREENING COLONOSCOPY FLX DX W/COLLJ SPEC WHEN PFRMD Shan Christianson MD [address] [place] [address] [facility] [address] [place] [address] Referral ID Status Reason Start Date Expiration Date Visits Requested Visits Authorized [id number] Pending Review Auto-Generat ed Referral 03/20/2022 03/20/2023 1 1 [facility] for referral (narrative)* Diagnostic Procedure Only (Routine) - Closed Specialty Diagnoses / Procedures Referred By Contac t Referred To Contact XR IMAGING Diagnoses Acute pain of right knee Procedures XR KNEE GENERAL 4V AP BOTH/PA BOTH/LAT/MERC RIGHT RADIOLOGIC EXAM KNEE COMPLETE 4/MORE VIEWS Mayuri Collins PA-C [address] [place] [address] [place] [id number] Referral ID Status Reason Start Date Expiration Date V isits Requested Visits Authorized [id number] Closed Auto-Generate d Referral 2023 09/30/2024 1 1 [facility] for referral (narrative)* Diagnostic Procedure Only (Routine) - Closed Specialty Diagnoses / Procedures Referred By Contac t Referred To Contact XR IMAGING Diagnoses Acute pain of right knee Procedures XR KNEE GENERAL 4V AP BOTH/PA BOTH/LAT/MERC RIGHT RADIOLOGIC EXAM KNEE COMPLETE 4/MORE VIEWS Mayuri Collins PA-C [address] [place] [address] [place] [id number] Referral ID Status Reason Start Date Expiration Date V isits Requested Visits Authorized [id number] Closed Auto-Generate d Referral 2023 09/30/2024 [facility] Procedure Only (Routine) - Closed Specialty Diagnoses / Procedures Referred By Contac t Referred To Contact XR IMAGING Diagnoses Acute pain of right knee Procedures XR KNEE GENERAL 4V AP BOTH/PA BOTH/LAT/MERC RIGHT RADIOLOGIC EXAM KNEE COMPLETE 4/MORE VIEWS Mayuri Collins PA-C [address] [place] [id number] [place] [id number] Referral ID Status Reason Start Date Expiration Date V isits Requested Visits Authorized [id number] Closed Auto-Generate d Referral 2023 09/30/2024 1 1 [facility] Chief Complaint and Reason for Visit Chief Complaint 1 Y FU FLANK PAIN 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 Paroxysmal atrial fibrillation Pure hypercholesterolemia Cardiomyopathy in other diseases classified elsewhere Chief Complaint 1 Y FU FLANK PAIN CYSTITIS Reason for Visit senior living current us e of antiarrhythmic drug Paroxysmal atrial fibrillation Pure hypercholesterolemia Cardiomyopathy in other diseases classified elsewhere Chief Complaint 1 Y FU FLANK PAIN CYSTITIS CYSTITIS CYSTITIS CYSTITIS CYSTITIS CYSTITIS 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 Paroxysmal atrial fibrillation Pure hypercholesterolemia Cardiomyopathy in other diseases classified elsewhere Acute cystitis GO (acute kidney injury) Bacteremia Diarrhea Hemorrhagic cystitis Chief Complaint FLANK PAIN CYSTITIS CYSTITIS CYSTITIS CYSTITIS CYSTITIS CYSTITIS CYSTITIS UTI Reason for Visit Acute cystitis GO (acute kidney injury) Bacteremia Diarrhea Acute cystitis without hematuria Acute hypotension Fever Prostatitis, acute SIRS (systemic inflammatory response syndrome) Chief Complaint FLANK PAIN CYSTITIS CYSTITIS CYSTITIS CYSTITIS CYSTITIS CYSTITIS CYSTITIS UTI Urinary tract infection Urinary tract infection Urinary tract infection Urinary tract infection Reason for Visit Acute cystitis GO (acute kidney injury) Bacteremia Diarrhea Acute cystitis without hematuria Acute hypotension Fever Prostatitis, acute SIRS (systemic inflammatory response syndrome) Chief Complaint CYSTITIS CYSTITIS CYSTITIS CYSTITIS CYSTITIS UTI Urinary tract infection Urinary tract infection Urinary tract infection Urinary tract infection Chronic cough Reason for Visit Acute cystitis GO (acute kidney injury) Bacteremia Diarrhea Acute cystitis without hematuria Acute hypotension Fever Prostatitis, acute SIRS (systemic inflammatory response syndrome) Chief Complaint Chronic cough DUE ON OR AROUND Chief Complaint 1 Y FU PREV PFM CHEST PAIN CHEST PAIN Reason for Visit Paroxysmal atrial fi brillation Pure hypercholesterolemia Cardiomyopathy in other diseases classified elsewhere Chest pain Thoracic back pain Chief Complaint 1 Y FU PREV PFM CHEST PAIN CHEST PAIN CHEST PAIN CHEST PAIN Reason for Visit Paroxysmal atrial fi brillation Pure hypercholesterolemia Cardiomyopathy in other diseases classified elsewhere Chest pain NSTEMI (non-ST elevated myocardial infarction) Thoracic back pain Paroxysmal atrial fibrillation Pure hypercholesterolemia Chief Complaint 1 Y FU PREV PFM CHEST PAIN CHEST PAIN CHEST PAIN CHEST PAIN CHEST PAIN S/P [facility] 03/25 PCI with stent PCi with stent Reason for Visit Paroxysmal atrial fi brillation Pure hypercholesterolemia Cardiomyopathy in other diseases classified elsewhere Paroxysmal atrial fibrillation Pure hypercholesterolemia Chest pain NSTEMI (non-ST elevated myocardial infarction) Thoracic back pain Stented coronary artery Paroxysmal atrial fibrillation Pure hypercholesterolemia Chief Complaint CHEST PAIN CHEST PAIN CHEST PAIN CHEST PAIN CHEST PAIN S/P [facility] 03/25 PCI with stent PCi with stent Reason for Visit Paroxysmal atrial fi brillation Pure hypercholesterolemia Chest pain NSTEMI (non-ST elevated myocardial infarction) Thoracic back pain Stented coronary artery Paroxysmal atrial fibrillation Pure hypercholesterolemia Chief Complaint S/P [facility] 03/25 PCI with stent PCi with stent INT LABS 3 M FU PCi with stent Reason for Visit Stented coronary art mree Paroxysmal atrial fibrillation Pure hypercholesterolemia Stented coronary artery Paroxysmal atrial fibrillation Pure hypercholesterolemia Chief Complaint PCI with stent PCi with stent INT LABS 3 M FU PCi with stent PCi with stent Reason for Visit Stented coronary art mere Paroxysmal atrial fibrillation Pure hypercholesterolemia Family History No Family History Records Found Relationship Condition Age at Onset Recorded Date/T татьяна Not Specified Family history of hypertension Unknown father Amyotrophic lateral sclerosis Unknown mother Myocardial infarction Unknown Coronary artery disease Unknown brother Myocardial infarction 60 Hypertension Unknown Multiple sclerosis Unknown Advance Directives No Advanced Directives Records Found Advance Directive Response Recorded Date/ Time Living Will No February 08, 2022 1:49pm Power of Finish Rolls Operator No January 1:49pm Advance Directive Response Recorded Date/ Time Living Will No February 09 2 12:36pm Power of Finish Rolls Operator No February 09 12:36pm Advance Directive Response Recorded Date/ Time Living Will No February 09 2 2:44pm Power of Finish Rolls Operator No February 09 2:44pm Advance Directive Response Recorded Date/ Time Living Will No May 12 3 11:32pm Power of Finish Rolls Operator No May 12 11:32pm Advance Directive Response Recorded Date/ Time Living Will No May 13 3 5:36am Power of Finish Rolls Operator No May 13 023 5:36am Advance Directive Response Recorded Date/ Time Living Will No May 13 6:36am Power of Finish Rolls Operator No May 13 023 6:36am Advance Directive Response Recorded Date/ Time Living Will No March 24 023 9:17pm Power of Finish Rolls Operator No March 24, 2023 9:17pm Advance Directive Response Recorded Date/ Time Living Will No March 25 023 1:11am Power of Finish Rolls Operator No March 25, 2023 1:11am Advance Directive Response Recorded Date/ Time Advance Directives on File No 2023 9:53am Living Will No June 23 024 9:53am Power of Finish Rolls Operator No June 23, 2023 9:53am Advance Directive Response Recorded Date/ Time Advance Directives on File No 2023 10:53am Living Will No June 23 10:53am Power of Finish Rolls Operator No June 23, 2023 10:53am Reason for Referral Specialty Diagnoses / Procedures Referred By Ameeac t Referred To Contact CT IMAGING Diagnoses Persistent cough Chronic cough Procedures CT CHEST WO IVCON DIAGNOSTIC COMPUTED TOMOGRAPHY THORAX W/O CNTRST Shan Christianson MD [address] [place] [address] Ct Imaging Referral ID Status Reason Start Date Expiration Date Visits Requested Visits Authorized [id number] Authorized Auto-Generat ed Referral 05/31/2022 06/30/2023 1 1 Specialty Diagnoses / Procedures Referred By Linnea groves Referred To Contact [facility] Diagnoses Persistent cough Procedures SPIROMETRY - BASELINE AND POST DILATOR BRNCDILAT RSPSE SPMTRY PRE&POST-BRNCDILAT ADMN Shan Christianson MD [address] [place] [address] [facility] [address] [place] [address] Referral ID Status Reason Start Date Expiration Date Visits Requested Visits Authorized [id number] Authorized Auto-Generat ed Referral 05/31/2022 06/30/2023 1 1 Specialty Diagnoses / Procedures Referred By Linnea t Referred To Contact General Surgery Diagnoses Family history of colon cancer in mother Hematochezia Procedures CONSULT TO GENERAL SURGERY OFFICE/OUTPATIENT NEW HIGH MDM 60 MINUTES Shan Christianson MD [facility] [place] [address] Referral ID Status Reason Start Date Expiration Date Visits Requested Visits Authorized [id number] Authorized PCP Requested Referral 10/29/2023 10/28/2024 1 1 Summary Purpose Additional Source Comments Source Comments (unrecognize d section and content) In the event this informatio n is protected by the Federal Confidentiality of Alcohol and Drug Abuse Patient Records regulations: The Federal rules restrict any use of the information to criminally investigate or prosecute any alcohol or drug abuse patient.[facility] the event this information is protected by the Federal Confidentiality of Alcohol and Drug Abuse Patient Records regulations: The Federal rules restrict any use of the information to criminally investigate or prosecute any alcohol or drug abuse patient.[facility] the event this information is protected by the Federal Confidentiality of Alcohol and Drug Abuse Patient Records regulations: The Federal rules restrict any use of the information to criminally investigate or prosecute any alcohol or drug abuse patient.[facility] the event this information is protected by the Federal Confidentiality of Alcohol and Drug Abuse Patient Records regulations: The Federal rules restrict any use of the information to criminally investigate or prosecute any alcohol or drug abuse patient.[facility] the event this information is protected by the Federal Confidentiality of Alcohol and Drug Abuse Patient Records regulations: The Federal rules restrict any use of the information to criminally investigate or prosecute any alcohol or drug abuse patient.[facility] the event this information is protected by the Federal Confidentiality of Alcohol and Drug Abuse Patient Records regulations: The Federal rules restrict any use of the information to criminally investigate or prosecute any alcohol or drug abuse patient.[facility] the event this information is protected by the Federal Confidentiality of Alcohol and Drug Abuse Patient Records regulations: The Federal rules restrict any use of the information to criminally investigate or prosecute any alcohol or drug abuse patient.[facility] the event this information is protected by the Federal Confidentiality of Alcohol and Drug Abuse Patient Records regulations: The Federal rules restrict any use of the information to criminally investigate or prosecute any alcohol or drug abuse patient.[facility] the event this information is protected by the Federal Confidentiality of Alcohol and Drug Abuse Patient Records regulations: The Federal rules restrict any use of the information to criminally investigate or prosecute any alcohol or drug abuse patient.[facility] the event this information is protected by the Federal Confidentiality of Alcohol and Drug Abuse Patient Records regulations: The Federal rules restrict any use of the information to criminally investigate or prosecute any alcohol or drug abuse patient.[facility] the event this information is protected by the Federal Confidentiality of Alcohol and Drug Abuse Patient Records regulations: The Federal rules restrict any use of the information to criminally investigate or prosecute any alcohol or drug abuse patient.[facility] the event this information is protected by the Federal Confidentiality of Alcohol and Drug Abuse Patient Records regulations: The Federal rules restrict any use of the information to criminally investigate or prosecute any alcohol or drug abuse patient.[facility] the event this information is protected by the Federal Confidentiality of Alcohol and Drug Abuse Patient Records regulations: The Federal rules restrict any use of the information to criminally investigate or prosecute any alcohol or drug abuse patient.[facility] the event this information is protected by the Federal Confidentiality of Alcohol and Drug Abuse Patient Records regulations: The Federal rules restrict any use of the information to criminally investigate or prosecute any alcohol or drug abuse patient.[facility] the event this information is protected by the Federal Confidentiality of Alcohol and Drug Abuse Patient Records regulations: The Federal rules restrict any use of the information to criminally investigate or prosecute any alcohol or drug abuse patient.[facility] the event this information is protected by the Federal Confidentiality of Alcohol and Drug Abuse Patient Records regulations: The Federal rules restrict any use of the information to criminally investigate or prosecute any alcohol or drug abuse patient.[facility] the event this information is protected by the Federal Confidentiality of Alcohol and Drug Abuse Patient Records regulations: The Federal rules restrict any use of the information to criminally investigate or prosecute any alcohol or drug abuse patient.[facility] the event this information is protected by the Federal Confidentiality of Alcohol and Drug Abuse Patient Records regulations: The Federal rules restrict any use of the information to criminally investigate or prosecute any alcohol or drug abuse patient.[facility] the event this information is protected by the Federal Confidentiality of Alcohol and Drug Abuse Patient Records regulations: The Federal rules restrict any use of the information to criminally investigate or prosecute any alcohol or drug abuse patient.[facility] the event this information is protected by the Federal Confidentiality of Alcohol and Drug Abuse Patient Records regulations: The Federal rules restrict any use of the information to criminally investigate or prosecute any alcohol or drug abuse patient.[facility] DaytonIn the event this information is protected by the Federal Confidentiality of Alcohol and Drug Abuse Patient Records regulations: The Federal rules restrict any use of the information to criminally investigate or prosecute any alcohol or drug abuse patient.[facility] DaytonIn the event this information is protected by the Federal Confidentiality of Alcohol and Drug Abuse Patient Records regulations: The Federal rules restrict any use of the information to criminally investigate or prosecute any alcohol or drug abuse patient.[facility] DaytonIn the event this information is protected by the Federal Confidentiality of Alcohol and Drug Abuse Patient Records regulations: The Federal rules restrict any use of the information to criminally investigate or prosecute any alcohol or drug abuse patient.[facility] DaytonIn the event this information is protected by the Federal Confidentiality of Alcohol and Drug Abuse Patient Records regulations: The Federal rules restrict any use of the information to criminally investigate or prosecute any alcohol or drug abuse patient.[facility] DaytonIn the event this information is protected by the Federal Confidentiality of Alcohol and Drug Abuse Patient Records regulations: The Federal rules restrict any use of the information to criminally investigate or prosecute any alcohol or drug abuse patient.[facility] DaytonIn the event this information is protected by the Federal Confidentiality of Alcohol and Drug Abuse Patient Records regulations: The Federal rules restrict any use of the information to criminally investigate or prosecute any alcohol or drug abuse patient.[facility] DaytonIn the event this information is protected by the Federal Confidentiality of Alcohol and Drug Abuse Patient Records regulations: The Federal rules restrict any use of the information to criminally investigate or prosecute any alcohol or drug abuse patient.[facility] DaytonIn the event this information is protected by the Federal Confidentiality of Alcohol and Drug Abuse Patient Records regulations: The Federal rules restrict any use of the information to criminally investigate or prosecute any alcohol or drug abuse patient.[facility] DaytonIn the event this information is protected by the Federal Confidentiality of Alcohol and Drug Abuse Patient Records regulations: The Federal rules restrict any use of the information to criminally investigate or prosecute any alcohol or drug abuse patient.[facility] DaytonIn the event this information is protected by the Federal Confidentiality of Alcohol and Drug Abuse Patient Records regulations: The Federal rules restrict any use of the information to criminally investigate or prosecute any alcohol or drug abuse patient.[facility] DaytonIn the event this information is protected by the Federal Confidentiality of Alcohol and Drug Abuse Patient Records regulations: The Federal rules restrict any use of the information to criminally investigate or prosecute any alcohol or drug abuse patient.[facility] DaytonIn the event this information is protected by the Federal Confidentiality of Alcohol and Drug Abuse Patient Records regulations: The Federal rules restrict any use of the information to criminally investigate or prosecute any alcohol or drug abuse patient.[facility] DaytonIn the event this information is protected by the Federal Confidentiality of Alcohol and Drug Abuse Patient Records regulations: The Federal rules restrict any use of the information to criminally investigate or prosecute any alcohol or drug abuse patient.[facility] DaytonIn the event this information is protected by the Federal Confidentiality of Alcohol and Drug Abuse Patient Records regulations: The Federal rules restrict any use of the information to criminally investigate or prosecute any alcohol or drug abuse patient.[facility] DaytonIn the event this information is protected by the Federal Confidentiality of Alcohol and Drug Abuse Patient Records regulations: The Federal rules restrict any use of the information to criminally investigate or prosecute any alcohol or drug abuse patient.[facility] DaytonIn the event this information is protected by the Federal Confidentiality of Alcohol and Drug Abuse Patient Records regulations: The Federal rules restrict any use of the information to criminally investigate or prosecute any alcohol or drug abuse patient.[facility] DaytonIn the event this information is protected by the Federal Confidentiality of Alcohol and Drug Abuse Patient Records regulations: The Federal rules restrict any use of the information to criminally investigate or prosecute any alcohol or drug abuse patient.[facility] DaytonIn the event this information is protected by the Federal Confidentiality of Alcohol and Drug Abuse Patient Records regulations: The Federal rules restrict any use of the information to criminally investigate or prosecute any alcohol or drug abuse patient.[facility] DaytonIn the event this information is protected by the Federal Confidentiality of Alcohol and Drug Abuse Patient Records regulations: The Federal rules restrict any use of the information to criminally investigate or prosecute any alcohol or drug abuse patient.[facility] DaytonIn the event this information is protected by the Federal Confidentiality of Alcohol and Drug Abuse Patient Records regulations: The Federal rules restrict any use of the information to criminally investigate or prosecute any alcohol or drug abuse patient.[facility] DaytonIn the event this information is protected by the Federal Confidentiality of Alcohol and Drug Abuse Patient Records regulations: The Federal rules restrict any use of the information to criminally investigate or prosecute any alcohol or drug abuse patient.[facility] DaytonIn the event this information is protected by the Federal Confidentiality of Alcohol and Drug Abuse Patient Records regulations: The Federal rules restrict any use of the information to criminally investigate or prosecute any alcohol or drug abuse patient.[facility] DaytonIn the event this information is protected by the Federal Confidentiality of Alcohol and Drug Abuse Patient Records regulations: The Federal rules restrict any use of the information to criminally investigate or prosecute any alcohol or drug abuse patient.[facility] DaytonIn the event this information is protected by the Federal Confidentiality of Alcohol and Drug Abuse Patient Records regulations: The Federal rules restrict any use of the information to criminally investigate or prosecute any alcohol or drug abuse patient.[facility] DaytonIn the event this information is protected by the Federal Confidentiality of Alcohol and Drug Abuse Patient Records regulations: The Federal rules restrict any use of the information to criminally investigate or prosecute any alcohol or drug abuse patient.[facility] DaytonIn the event this information is protected by the Federal Confidentiality of Alcohol and Drug Abuse Patient Records regulations: The Federal rules restrict any use of the information to criminally investigate or prosecute any alcohol or drug abuse patient.[facility] DaytonIn the event this information is protected by the Federal Confidentiality of Alcohol and Drug Abuse Patient Records regulations: The Federal rules restrict any use of the information to criminally investigate or prosecute any alcohol or drug abuse patient.[facility] DaytonIn the event this information is protected by the Federal Confidentiality of Alcohol and Drug Abuse Patient Records regulations: The Federal rules restrict any use of the information to criminally investigate or prosecute any alcohol or drug abuse patient.[facility] DaytonIn the event this information is protected by the Federal Confidentiality of Alcohol and Drug Abuse Patient Records regulations: The Federal rules restrict any use of the information to criminally investigate or prosecute any alcohol or drug abuse patient.[facility] DaytonIn the event this information is protected by the Federal Confidentiality of Alcohol and Drug Abuse Patient Records regulations: The Federal rules restrict any use of the information to criminally investigate or prosecute any alcohol or drug abuse patient.[facility] DaytonIn the event this information is protected by the Federal Confidentiality of Alcohol and Drug Abuse Patient Records regulations: The Federal rules restrict any use of the information to criminally investigate or prosecute any alcohol or drug abuse patient.[facility] DaytonIn the event this information is protected by the Federal Confidentiality of Alcohol and Drug Abuse Patient Records regulations: The Federal rules restrict any use of the information to criminally investigate or prosecute any alcohol or drug abuse patient.[facility] DaytonIn the event this information is protected by the Federal Confidentiality of Alcohol and Drug Abuse Patient Records regulations: The Federal rules restrict any use of the information to criminally investigate or prosecute any alcohol or drug abuse patient.[facility] DaytonIn the event this information is protected by the Federal Confidentiality of Alcohol and Drug Abuse Patient Records regulations: The Federal rules restrict any use of the information to criminally investigate or prosecute any alcohol or drug abuse patient.[facility] Reason for Visit (unrecogniz ed section and content) Reason Comments Forms Disability Reason Comments Physical Has disability forms for completion Reason Comments Recheck Reason Comments gi consult Reason Comments urinary symptoms Reason Comments Urinary Problem Urgency, frequency,h ematuria Reason Comments Information Reason Comments Hospital F/U Reason Comments Follow Up Hospital Follow up Reason Comments Results Reason Comments Hospital F/U [facility] - 05/19/22 [place]. Doing much better, no symptoms remain. Reason Comments Patient Question Reason Comments Cough Reason Comments Spirometry Specialty Diagnoses / Procedures Referred By Contac t Referred To [facility] Diagnoses Persistent cough Procedures SPIROMETRY - BASELINE AND POST DILATOR BRNCDILAT RSPSE SPMTRY PRE&POST-BRNCDILAT ADMShan Bryant MD [address] [place] [address] [facility] [place] [address] [place] [address] Referral ID Status Reason Start Date Expiration Date V isits Requested Visits Authorized [id number] Closed Auto-Generate d Referral 05/31/2022 06/30/2023 1 1 Reason Comments Yearly Exam Reason Comments Forms Reason Comments Outside Cardiology Reason Comments Outside Echo Reason Comments ext document Urology Reason Comments Hospital F/U [facility] had stent placem ent. Has follow up 04/22 for stent Reason Comments Outside [id number] Ordered Reason Comments Pain & swelling right kne e X 2 wks Reason Comments Ext labs Reason Comments Ext / Urology Reason Comments Refill Request Reason Onset Date Comments Population Health Navigation Outreach 10/22/2023 [place] AWV/HCC and care gaps Reason Comments Pain Reason Onset Date Comments Population Health Navigation Outreach 11/04/2023 [place] Med Adherence Reason Comments Outside PT Reason Comments Physical Reason Comments ER F/U [facility] - ER Reason Onset Date Comments ACM HARJEET RN 01/13/2024 ER f/u Reason Comments Follow Up Reason Comments Patient Update Care Teams (unrecognized sec tion and content) Liner Worker Relationship Specialty Start Date End Date Shan Christianson MD [address] [place] [address] PCP - General Family Practice 12/29/20 Jeremy Garcias(Historical)MD [address] [place] [address], [place] [address] Referring General Surgery 05/31/19 Liner Worker Relationship Specialty Start Date End Date Shan Christianson MD [address] [place] [address] PCP - General Family Practice 12/29/20 Jeremy Garcias(Historical)MD [address] [place] [address], [place] [address] Referring General Surgery 05/31/19 Liner Worker Relationship Specialty Start Date End Date Shan Christianson MD [address] [place] [address] PCP - General Family Practice 12/29/20 Jeremy Garcias(Historical)MD [address] [facility] [address] Referring General Surgery 05/31/19 Liner Worker Relationship Specialty Start Date End Date Shan Christianson MD [address] [place] [address] PCP - General Family Medicine 12/29/20 Jeremy Garcias(Historical)MD [address] [place] [address] Referring General Surgery 05/31/19 Liner Worker Relationship Specialty Start Date End Date Shan Christianson MD [address] [place] [address] PCP - General Family Medicine 12/29/20 Jeremy Garcias(Historical)MD [address] [place] [address] Referring General Surgery 05/31/19 Liner Worker Relationship Specialty Start Date End Date Shan Christianson MD [address] [place] [address] PCP - General Family Medicine 12/29/20 Jeremy Garcias(Historical)MD [address] [place] [address] Referring General Surgery 05/31/19 Liner Worker Relationship Specialty Start Date End Date Shan Christianson MD [address] [place] [address] PCP - General Family Medicine 12/29/20 Jeremy Garcias(Historical)MD [address] [place] [address] Referring General Surgery 05/31/19 Liner Worker Relationship Specialty Start Date End Date Shan Christianson MD [address] [place] [address] PCP - General Family Medicine 12/29/20 Jeremy Garcias(Historical)MD [address] [place] [address] Referring General Surgery 05/31/19 Liner Worker Relationship Specialty Start Date End Date Shan Christianson MD [address] [place] [address] PCP - General Family Medicine 12/29/20 Jeremy Garcias(Historical)MD [address] [place] [address] Referring General Surgery 05/31/19 Liner Worker Relationship Specialty Start Date End Date Shan Christianson MD [address] [place] [address] PCP - General Family Medicine 12/29/20 Jeremy Garcias(Historical)MD [address] [place] [address] Referring General Surgery 05/31/19 Liner Worker Relationship Specialty Start Date End Date Shan Christianson MD [address] [place] [address] PCP - General Family Medicine 12/29/20 Jeremy Garcias(Historical)MD [address] [place] [address] [place] [address] Referring General Surgery 05/31/19 Liner Worker Relationship Specialty Start Date End Date Shan Christianson MD [address] [place] [address] PCP - General Family Medicine 12/29/20 Jeremy Garcias(Historical)MD [address] [place] [address], [place] [address] Referring General Surgery 05/31/19 Liner Worker Relationship Specialty Start Date End Date Shan Christianson MD [address] [place] [address] PCP - General Family Medicine 12/29/20 Jeremy Garcias(Historical)MD [address] [facility] [address] Referring General Surgery 05/31/19 Liner Worker Relationship Specialty Start Date End Date Shan Christianson MD [address] [place] [address] PCP - General Family Medicine 12/29/20 Jeremy Garcias(Historical)MD [address] [place] [address], [place] [address] Referring General Surgery 05/31/19 Team Status: Active Member Role Status Dates Dr. Olivier Garcias III, MD Family Provider Active Dr. Shan Christianson MD Primary Care Provider Active Team Status: Active Member Role Status Dates Dr. Asif Ford , DO Emergency Provider Active No Primary Care Physician Primary Care Provider Active Dr. Kevin Paulino , DO Admit Provider, Attending Provider, Other Provider Active Team Status: Active Member Role Status Dates Dr. Asif Ford , DO Emergency Provider Active No Primary Care Physician Primary Care Provider Active Dr. Kevin Paulino , DO Admit Provider, Other Provide r Active Dr. Esteban Taylor MD Attending Provider, Other Provid er Active Dr. Jeremy Anguiano MD Other Provider Active Team Status: Active Member Role Status Dates Dr. Asif Ford DO Emergency Provider Active Dr. Kevin Paulino , DO Admit Provider, Other Provide r Active Dr. Esteban Taylor MD Attending Provider, Other Provid er Active Dr. Jeremy Anguiano MD Other Provider Active Dr. Shan Christianson MD Primary Care Provider Active Dr. Ann Espino MD Other Provider Active Team Status: Active Member Role Status Dates Dr. Shan Christianson MD Primary Care Provider Active Dr. Keagan Cheney MD Emergency Provider Active Dr. Timoteo Gee MD Admit Provider, Attending Provider, Other Provider Active Team Status: Active Member Role Status Dates Dr. Shan Christianson MD Primary Care Provider Active Dr. Keagan Cheeny MD Emergency Provider Active Dr. Timoteo Gee MD Admit Provider, Other Provide r Active Dr. Mirna Shukla MD Attending Provider, Other Provider Active Dr. Rickey Jama MD Other Provider Active Team Status: Inactive Member Role Status Dates Dr. Asif Ford DO Emergency Provider Active Dr. Kevin Paulino , Admit Provider, Other Provide r Active Dr. Esteban Taylor MD Attending Provider Active Dr. Jeremy Anguiano MD Other Provider Active Dr. Shan Christianson MD Primary Care Provider Active Dr. Ann Espino MD Other Provider Active Team Status: Inactive Member Role Status Dates Dr. Shan Christianson MD Primary Care Provider Active Dr. Keagan Cheney MD Emergency Provider Active Dr. Timoteo Gee MD Admit Provider, Other Provide r Active Dr. Mirna Shukla MD Attending Provider Active Dr. Rickey Jama MD Other Provider Active Team Status: Inactive Member Role Status Dates Dr. Shan Christianson MD Primary Care Provider Active Mariana Trejo , FRONT END WEB DESIGNER-C Attending Provider Active Team Status: Active Member Role Status Dates Dr. Shan Christianson MD Primary Care Provider, Attendi ng Provider Active Team Status: Inactive Member Role Status Dates Dr. Shan Christianson MD Primary Care Provider Active Mariana Trejo , FRONT END WEB DESIGNER-C Attending Provider, Referrin g Provider Active Team Status: Inactive Member Role Status Dates Dr. Shan Christianson MD Primary Care Provider, Attendi ng Provider Active Liner Worker Relationship Specialty Start Date End Date Shan Christianson MD [address] [place], [place] [id number] PCP - General Family Medicine 12/29/20 Jeremy Garcias(Historical)MD [address] [place] [id number] Referring General Surgery 05/31/19 Liner Worker Relationship Specialty Start Date End Date Shan Christianson MD [address] [place], [place] 905[address] PCP - General Family Medicine 12/29/20 Jeremy Garcias(Historical)MD [address] [place] [address] [id number] Referring General Surgery 05/31/19 Liner Worker Relationship Specialty Start Date End Date Shan Christianson MD [address] [place], [place] [address]85[address] PCP - General Family Medicine 12/29/20 Jeremy Garcias(Historical)MD [address] [place] [address] [id number] Referring General Surgery 05/31/19 Team Status: Inactive Member Role Status Dates Dr. Shan Christianson MD Primary Care Provider, Referri ng Provider Active Dr. Hussein Meyer MD Active Yeni Cha PA, PA Attending Provider Active Team Status: Active Member Role Status Dates Dr. Shan Christianson MD Primary Care Provider Active Nathanael Dunne MD Emergency Provider Active Dr. Mary Ellen Edmondson DO Admit Provider, Att ending Provider, Other Provider Active Team Status: Active Member Role Status Dates Dr. Shan Christianson MD Primary Care Provider Active Dr. Rickey Jama MD Attending Provider, Referr ing Provider Active Team Status: Active Member Role Status Dates Dr. Shan Christianson MD Primary Care Provider Active Nathanael Dunne MD Emergency Provider Active Dr. Mary Ellen Edmondson DO Admit Provider, Attending Provide r Active Team Status: Active Member Role Status Dates Dr. Shan Christianson MD Primary Care Provider Active Dr. Darin Alexander MD Attending Provider Active Team Status: Active Member Role Status Dates Dr. Shan Christianson MD Primary Care Provider Active Nathanael Dunne MD Emergency Provider Active Dr. Mary Ellen Edmondson DO Admit Provider, Other Provider Ac tive Dr. Darin Alexander MD Other Provider Active Dr. Esteban Taylor MD Attending Provider, Other Provid er Active Dr. Claudia Johnsno MD Other Provider Active Team Status: Inactive Member Role Status Dates Dr. Shan Christianson MD Primary Care Provider Active Dr. Rickey Jama MD Attending Provider, Referr ing Provider Active Team Status: Inactive Member Role Status Dates Dr. Shan Christianson MD Primary Care Provider Active Nathanael Dunne MD Emergency Provider Active Dr. Mary Ellen Edmondson DO Admit Provider, Other Provider Ac tive Dr. Darin Alexander MD Other Provider Active Dr. Esteban Taylor MD Attending Provider Active Dr. Claudia Johnson MD Other Provider Active Liner Worker Relationship Specialty Start Date End Date Shan Christianson MD [address] [place] [address] PCP - General Family Medicine 12/29/20 Jeremy Garcias(Historical)MD [address] [place], [place] [id number] Referring General Surgery 05/31/19 Liner Worker Relationship Specialty Start Date End Date Shan Christianson MD [address] [place], [place] [address] PCP - General Family Medicine 12/29/20 Jeremy Garcias(Historical)MD [address] [place], [place] [address] Referring General Surgery 05/31/19 Liner Worker Relationship Specialty Start Date End Date Shan Christianson MD [address] [place], [place] [address] PCP - General Family Medicine 12/29/20 Jeremy Garcias(Historical)MD [address] [place] [address] [phone] Referring General Surgery 05/31/19 Team Status: Inactive Member Role Status Dates Dr. Shan Christianson MD Primary Care Provider, Referri ng Provider Active Markus Mayorga FRONT END WEB DESIGNER, FRONT END WEB DESIGNER-C Attending Provider Active Team Status: Active Member Role Status Dates Dr. Shan Christianson MD Primary Care Provider Active Nathanael Dunne MD Emergency Provider Active Dr. Mary Ellen Edmondson DO Admit Provider, Other Provider Ac tive Dr. Darin Alexander MD Attending Provider, Other Provid er Active Dr. Esteban Taylor MD Other Provider Active Dr. Claudia Johnson MD Other Provider Active Team Status: Active Member Role Status Dates Dr. Shan Christianson MD Primary Care Provider Active Dr. Johnny Cantu MD Attending Provider Active Team Status: Inactive Member Role Status Dates Dr. Shan Christianson MD Primary Care Provider Active Dr. Johnny Cantu MD Attending Provider, Referring Provider Active Team Status: Active Member Role Status Dates Dr. Shan Christianson MD Primary Care Provider Active Dr. Johnny Cantu MD Attending Provider, Referring Provider Active Team Status: Inactive Member Role Status Dates Dr. Shan Christianson MD Primary Care Provider, Referri ng Provider Active Yeni Cha PA, PA Attending Provider Active Team Status: Inactive Member Role Status Dates Dr. Shan Christianson MD Primary Care Provider Active Markus Mayorga FRONT END WEB DESIGNER, FRONT END WEB DESIGNER-C Attending Provider, Referring Pro vider Active Liner Worker Relationship Specialty Start Date End Date Shan Christianson MD [address] [place] [address] PCP - General Family Medicine 12/29/20 Jeremy Garcias(Historical)[place] [address] [place] [address] [place] [address] Referring General Surgery 05/31/19 Liner Worker Relationship Specialty Start Date End Date Shan Christianson MD [address] [place] [address] PCP - General Family Medicine 12/29/20 Jeremy Garcias(Historical)MD [address] [place] [address] Referring General Surgery 05/31/19 Liner Worker Relationship Specialty Start Date End Date Shan Christianson MD [address] [place] [address] PCP - General Family Medicine 12/29/20 Jeremy Garcias(Historical)MD [address] [place] [address] [place] [address] Referring General Surgery 05/31/19 Liner Worker Relationship Specialty Start Date End Date Shan Christianson MD [address] [place] [address] PCP - General Family Medicine 12/29/20 Jeremy Garcias(Historical)MD [facility] [place] [address] Referring General Surgery 05/31/19 Liner Worker Relationship Specialty Start Date End Date Shan Christianson MD [address] [place] [address] PCP - General Family Medicine 12/29/20 Jeremy Garcias(Historical)MD [address] [place], [place] [phone] Referring General Surgery 05/31/19 Liner Worker Relationship Specialty Start Date End Date Shan Christianson MD [address] [place] [address] PCP - General Family Medicine 12/29/20 Jeremy Garcias(Historical)MD [address] [place], [place] [phone] Referring General Surgery 05/31/19 Liner Worker Relationship Specialty Start Date End Date Shan Christianson MD [address] [place], [place] [phone] PCP - General Family Medicine 12/29/20 Jeremy Garcias(Historical)MD [address] [place] [address] [phone] Referring General Surgery 05/31/19 Liner Worker Relationship Specialty Start Date End Date Shan Christianson MD [address] [place] [address] PCP - General Family Medicine 12/29/20 Jeremy Garcias(Historical)MD [address] [place], [place] [phone] Referring General Surgery 05/31/19 Karthik Wylie APRN.PROOF PLATE MAKER [address] [place] [address] Road Contractor Family Medicine 04/17/24 Mayuri Collins PA-C [address] [place] [address] Road Contractor Family Medicine 04/17/24 Liner Worker Relationship Specialty Start Date End Date Shan Christianson MD [address] [place] [address] PCP - General Family Medicine 12/29/20 Jeremy Garcias(Historical)MD [address] [place] [address] Referring General Surgery 05/31/19 Karthik Wylie APRN.PROOF PLATE MAKER [address] [place] [address] Road Contractor Family Medicine 04/17/24 Mayuri Collins PA-C [address] [place] [address] Road Contractor Family Medicine 04/17/24 Liner Worker Relationship Specialty Start Date End Date Shan Christianson MD [address] [place] [address] PCP - General Family Medicine 12/29/20 Jeremy Garcias(Historical)MD [address] [place] [address] Referring General Surgery 05/31/19 Karthik Wylie APRN.PROOF PLATE MAKER [address] [place] [address] Road Contractor Family Medicine 04/17/24 Mayuri Collins PA-C [address] [place] [address] Road Contractor Family Medicine 04/17/24 Liner Worker Relationship Specialty Start Date End Date Shan Christianson MD [address] [place], [place] [address] [phone] PCP - General Family Medicine 12/29/20 Jeremy Garcias(Historical)MD [address] [place], [place] [address]251 Referring General Surgery 05/31/19 Karthik Wylie APRN.PROOF PLATE MAKER [address] [place] [address] Road Contractor Family Medicine 04/17/24 Mayuri Collins PA-C [address] [place] [address] Road Contractor Family Medicine 04/17/24 Liner Worker Relationship Specialty Start Date End Date Shan Christianson MD [facility] [place] [address] PCP - General Family Medicine 12/29/20 Jeremy Garcias(Historical)MD [address] [place] [phone] Referring General Surgery 05/31/19 Karthik Wylie, LABORER STORES.PROOF PLATE MAKER [address] [place] [address] [phone] [address] Contractor Family Medicine 04/17/24 Mayuri Collins PA-C [address] [place] [address] Road Contractor Family Medicine 04/17/24 Liner Worker Relationship Specialty Start Date End Date Shan Christianson MD [address] [place] [address] PCP - General Family Medicine 12/29/20 Jeremy Garcias(Historical), [address] [place] [phone] Referring General Surgery 05/31/19 Karthik Wylie APRN.PROOF PLATE MAKER [address] [place] [address] Road Contractor Family [facility] 04/17/24 Mayuri Collins PA-C [address] [place] [address] Road Contractor [facility] 04/17/24 Goals (unrecognized section and content) Goals may be documented in a n alternate sectionGoals may be documented in an alternate sectionGoals may be documented in an alternate sectionGoals may be documented in an alternate sectionGoals may be documented in an alternate sectionGoals may be documented in an alternate sectionGoals may be documented in an alternate sectionGoals may be documented in an alternate sectionGoals may be documented in an alternate sectionGoals may be documented in an alternate section (unrecognized sect ion and content) No Status Records FoundNo Status Records Found INFORMATION SOURCE (unrecogn ized section and content) DATE CREATED AUTHOR 05/20/2024 [facility] DATE CREATED AUTHOR AUTHOR'S TOO CRAWFORD 06/25/2024 [facility] FOR RECORDS PERTAINING TO PATIENTS WHO ARE OR HAVE BEEN ENROLLED IN A CHEMICAL DEPENDENCY/SUBSTANCEABUSE PROGRAM, SOME INFORMATION MAY BE OMITTED. This clinical summary was aggregated from multiple sources. Caution should be exercised in using it in the provision of clinical care. This summary normalizes information from multiple sources, and as a consequence, information in this document may materially change the coding, format and clinical context of patient data. In addition, data may be omitted in some cases. CLINICAL DECISIONS SHOULD BE BASED ON THE PRIMARY CLINICAL RECORDS. [facility] provides no warranty or guarantee of the accuracy or completeness of information in this document.
[2024-10-17 12:35] LABS: Anion Gap 13 (5-15); BUN 19 mg/dL (4-19); BUN/Creat Ratio 15.8 RATIO (10-20); Calcium,Total 8.9 mg/dL (7.6-11.0); Carbon Dioxide 20.1 mmol/L (21.0-32.0); Chloride 105 mmol/L (98-108); Creatinine, Serum 1.18 mg/dL (0.70-1.20); EST Glomerular Filtration Rate 69 (>60); Estimated Creatinine Clearance 69.42 ml/min (50-250); Glucose 224 mg/dL (70-99); Potassium 3.9 mmol/L (3.3-5.1); Sodium Level 138 mmol/L (133-145)
[2024-10-17 12:41] LABS: Differential Indicated SCAN CRITERIA MET
[2024-10-17 12:42] LABS: Platelet Estimate SLT DEC (ADEQ)
--- NOTE | 2024-10-17 12:59 | EDS_ITS ---
HPI History of Present Illness Chief Complaint: Palpitations Informant: patient and spouse/S.O. Narrative Narrative: Patient 64-year-old male with history of atrial fibrillation, DVT (postprocedure after a guidewire apparently was stuck in his leg) and ACS status post stent placement who follows with Dr. Cantu presenting with cough and chest pain. He states in the past 2 weeks he has had a cough which he attributes to allergies. His states that sounds like bronchitis. He denies any new dyspnea on exertion or shortness of breath/exercise intolerance. He notes that sometimes he does get lightheaded after coughing fits. He has also been having chest discomfort for the past 2 weeks associate with his coughing. Today he developed pain rating across his upper back and some pain going into his bilateral neck which is new. Because of his cardiac history came in for further evaluation. He denies any fevers. Does not take any blood thinners. Notes over the past few weeks he has been going in and out of A-fib. He is no longer on flecainide but does continue to take metoprolol. Denies any swelling of his legs. States that he does have a [place] filter. Denies any GI or symptoms. No other complaints or concerns reported. [facility] Medical History Pulmonary infiltrate Acute maxillary sinusitis, unspecified Arteriosclerotic coronary artery disease NSTEMI (non-ST elevated myocardial infarction) Cancer Kidney stones GERD (gastroesophageal reflux disease) Irregular heart beat Atrial fibrillation DVT (deep venous thrombosis) Encounter for screening for COVID-19 URI (upper respiratory infection) Pure hypercholesterolemia Paroxysmal atrial fibrillation Cardiomyopathy in other diseases classified elsewhere Family history of hypertension Hyperlipidemia Acute embolism and thrombosis of deep vein of distal lower extremity Palpitations Home Medications ?Medication ?Instructions ?Recorded ?Last Taken ?Type diphenhydramine HCl 50 mg capsule 50 mg PO QHS 2 Unknown History aspirin 81 mg tablet,delayed 81 mg PO BREAKFAST #90 ta bs 03/27/23 Unknown Rx release atorvastatin 20 mg tablet 20 mg PO .QOD #15 tabs 12/31 Unknown Rx coenzyme Q10 100 mg capsule 100 mg PO DAILY #30 caps 0 01/01/24 Unknown Rx (CoQ-10) metoprolol tartrate 50 mg tablet 50 mg PO BID #180 tab s 01/22/24 Unknown Rx azithromycin 250 mg tablet 250 mg PO .COMPLEX #12 tabs 04/21/24 Unknown Rx benzonatate 200 mg capsule 200 mg PO TID PRN cough #20 caps 04/21/24 Unknown Rx albuterol sulfate 90 mcg/actuation 1 - 2 puff inhalati on Q4H PRN PRN 10/17/24 Unknown Rx aerosol inhaler (Ventolin HFA) Wheezing #1 inh apixaban 5 mg tablet (Eliquis) 5 mg PO BID #60 tabs Unknown Rx benzonatate 200 mg capsule 200 mg PO TID PRN cough #20 caps 10/17/24 Unknown Rx Allergy/AdvReac Type Severity Reaction Status Date / Time No Known Allergies Allergy Verified 10/17/24 11:36 Family History Father Martha Gehrig disease Mother Myocardial infarction CAD (coronary artery disease) Brother Myocardial infarction, Onset Age: 60 Hypertension Multiple sclerosis Other Family history of hypertension Surgical History Stented coronary artery (03/26/23) History of appendectomy History of left heart catheterization (LHC) Presence of IVC filter Social History household members: spouse housing: house Smoking Status: Never smoker alcohol intake: current alcohol intake frequency: a few times a week Alcohol type: beer substance use type: does not use caffeine: Yes Type: coffee Number of servings: 2 what type of physical activity do you participate in: none seatbelt use: always do you feel safe at home: Yes ROS ROS ED Constitutional Constitutional ED: Denies chills or fever(s) ENT ENT ED: Denies sore throat Cardiovascular Cardiovascular: Reports as per HPI, chest pain and palpitations Respiratory/Chest Respiratory/Chest: Reports cough; Denies dyspnea on exertion Gastrointestinal Gastrointestinal: Denies abdominal pain, nausea or vomiting Integumentary Denies rash Neurologic Neurologic: Denies weakness EXAM Physical Exam Const Vital Signs: 10/17/24 11:36 10/17/24 11:40 10/17/24 11:40 Temperature 97.7 F L Temperature Source Oral Pulse Rate 35 L 120 H Respiratory Rate 16 16 Respiratory Effort Normal Non-Labored Blood Pressure 114/61 114/61 Blood Pressure Mean 78 78 Pulse Ox 99 98 Oxygen Delivery Method Room Air 10/17/24 11:55 10/17/24 12:40 10/17/24 13:00 Temperature Temperature Source Pulse Rate 83 80 Respiratory Rate 12 18 Respiratory Effort Blood Pressure 115/72 118/70 Blood Pressure Mean 86 86 Pulse Ox 99 96 98 Oxygen Delivery Method Room Air Room Air 10/17/24 14:00 10/17/24 15:00 Temperature Temperature Source Pulse Rate 80 72 Respiratory Rate 18 16 Respiratory Effort Blood Pressure 106/78 119/91 H Blood Pressure Mean 87 100 Pulse Ox 96 98 Oxygen Delivery Method Positive well nourished and well developed General Appearance ED: well developed and NAD; Negative for pallor HEENT Reports moist mucous membranes Eyes PERRL Neck supple and no JVD Chest Wall inspection of chest normal and palpation of chest normal Resp normal respiratory effort and clear to auscultation bilaterally Auscultation: Negative for rhonchi, wheezes or diminished lung sounds Cardio regular rate and no murmurs Rhythm: abnormal rhythm irregularly irregular Peripheral Pulses: pulses 2+ throughout GI normal to inspection, nondistended, normoactive bowel sounds and soft to palpation Extremity normal to inspection General Extremety ED: Negative for edema General Extremity: Negative for edema Neuro oriented x3 Sensorium / Orientation: awake and alert Motor Exam: Negative for general weakness Psych mental status grossly normal Skin no rashes or lesions noted and no wounds General Skin Exam: Negative for pallor Heart Score History: Slightly/Non-Suspicious ECG: Normal Age: >45 - <65 years Risk Factors: >/= 3 Risk Factors or History of CAD Troponin: </= Normal Limit Score: 3 MDM MDM MDM Narrative Medical decision making narrative: Patient evaluated for palpitations, 2 weeks of cough and pain in his back rating to his neck which is new. Does have a history of coronary arteries with stents as well as atrial fibrillation. Differential includes was not limited to ACS, pulmonary emboli, symptomatic anemia, pneumonia, bronchitis, electrolyte abnormality and thyroid abnormality. Workup including CBC, BMP, magnesium, delta high-sensitivity troponin, TSH and D-dimer is obtained. Blood work largely normal however patient's bicarb is minimally low at 20.1 however his kidney function is normal. He is hyperglycemic with a glucose of 224 with a normal anion gap. Does not have a known history of diabetes and states he did eat pancakes with syrup this morning. Is given a liter of IV fluid. Is informed of his elevated glucose and need to follow-up with PCP to rule out diabetes. CBC largely normal. High- sensitivity troponin normal at 8 and on repeat at 2 hours 8. EKG does not show any acute ischemic changes. Patient does have mild tachycardia with atrial fibrillation upon arrival however while in the ER his heart rate normalizes below 100 without any further intervention. His D-dimer is significantly elevated 2.3 so CTA is obtained. This is negative for any PE. Given that patient is back in atrial fibrillation has a [id number] 2 score of 1 I did speak with cardiology, Dr. Velazquez. He is in agreement with starting the patient back on Eliquis. A prescription is sent. Will follow up outpatient with cardiology. Patient will be prescribed Tessalon Perles and inhaler for his cough as they suspect this is more bronchial in nature. Clinically does not appear fluid overloaded I do not think this is new onset CHF. Given his benign cardiac workup in the emergency room I do feel he can safely be discharged home. Given return precautions. Discharged home in stable condition. Lab Data Attestation: I reviewed the patient's lab results. Labs: Laboratory Results - last 24 hr 10/17/24 10/17/24 11:46 13:56 WBC 5.0 RBC 4.84 Hgb 15.2 Hct 43.5 MCV 89.9 MCH 31.4 MCHC 34.9 RDW Std Deviation 42.5 RDW Coeff of Lance 13.0 Plt Count 124 L MPV 9.6 Immature Gran % (Auto) 0.200 Neut % (Auto) 50.6 Lymph % (Auto) 35.3 [place] % (Auto) 7.9 Eos % (Auto) 5.4 H Baso % (Auto) 0.6 Absolute Neuts (auto) 2.5 Absolute Lymphs (auto) 1.75 Nucleated RBC % 0 Platelet Estimate SLT DEC PT 12.9 INR 1.0 D-Dimer Quant (PE/DVT) 2.30 H* Sodium 138 Potassium 3.9 Chloride 105 Carbon Dioxide 20.1 L Anion Gap 13 BUN 19 Creatinine 1.18 Estim Creat Clear Calc 69.42 Est GFR (MDRD) Non-Af 69 BUN/Creatinine Ratio 15.8 Glucose 224 H Calcium 8.9 Magnesium 1.8 Troponin T High Sens 8 Troponin T Hi Sens 2 Hr 8 TSH 0.789 Radiography Chest X-Ray - ED: 2 View, Read by ED Physician, Read by Radiologist and No Acute Disease Diagnostic Testing: Clinical Impression(s) from Imaging Studies Chest X-Ray 10/17/24 12:00 IMPRESSION: NO ACUTE FINDINGS. Reading [facility] Chest CTA 10/17/24 13:09 IMPRESSION: No PE. No acute findings. Coronary artery stent versus calcifications. Correlate with cardiac history. Reading Location[facility] Rhythm Strip Rhythm Strip: A-fib Rate: 116 Ectopy: None EKG Initial EKG: Attestation: I personally reviewed and interpreted this EKG as follows: Interpretation: Atrial Fibrillation Comments: Atrial fibrillation at a rate of 116 beats per minutes PVC present Normal axis Normal intervals Normal ST segments Compared to prior EKG on 01/08/2024, patient now has increased rate but no other acute changes Management Discussion w/another healthcare provider: Supervisor Force Adjustment Discharge Plan Triage Chief Complaint: Palpitations ED Provider: Nancy Nur Dx/Rx/DC Orders Clinical Impression: Paroxysmal atrial fibrillation, Bronchitis, Blood glucose elevated Instructions: ED AFIB, ED Bronchitis, No Antibiotic (Adult), ED Hyperglycemia New Poss Diabetes Prescriptions: New albuterol sulfate [Ventolin HFA] 90 mcg/actuation HFA aerosol inhaler 1 - 2 puff inhalation Q4H PRN PRN (Reason: Wheezing) Qty: 1 0RF benzonatate 200 mg capsule 200 mg PO TID PRN (Reason: cough) Qty: 20 0RF Eliquis 5 mg tablet 5 mg PO BID Qty: 60 0RF No Action diphenhydramine HCl 50 mg capsule 50 mg PO QHS metoprolol tartrate 50 mg tablet 50 mg PO BID Qty: 180 3RF coenzyme Q10 [CoQ-10] 100 mg capsule 100 mg PO DAILY Qty: 30 0RF atorvastatin 20 mg tablet 20 mg PO .QOD Qty: 15 3RF azithromycin 250 mg tablet 250 mg PO .COMPLEX Qty: 12 0RF Rx Instructions: 2 tablets (500 mg) on day 1, then 1 tablet daily on days 2 through 11 benzonatate 200 mg capsule 200 mg PO TID PRN (Reason: cough) Qty: 20 0RF aspirin 81 mg Tablet,Delayed Release (Dr/Ec) 81 mg PO BREAKFAST Qty: 90 0RF Primary Care Provider: Shan Desai Referrals: Shan Desai MD [Primary Care Provider] - Johnny Cantu MD [Med Staff - Active Staff] - Activity Restrictions/Additional Instructions: Your cardiac workup today was not consistent with any acute heart attack, ischemia to the heart or other more severe process. Your D-dimer was elevated however your CTA of the chest did not show any blood clot in the lung. I yannick pect your cough and majority of the symptoms are associated with a bronchitis. You been given an inhaler and cough medicine for this. For the atrial fibrillation I did speak with cardiology on-call (Dr. Velazquez) and he did recommend restarting you on Eliquis. No medication changes to your metoprolol at this time but continue to take as prescribed. Please speak to the pharmacist and see if they have a coupon card to help with the leahy of the Eliquis. If they do not you can call the cardiology office on Friday and they will get you a coupon card. (Unfortunately we are out of them in the ER today). Please call the cardiology office for follow-up this week. Print Language: Khmer Disposition Disposition: Home, Self Care
--- NOTE | 2024-10-17 13:09 | CT_ITS ---
PROCEDURE: CTA CHEST W/WO CONTRAST 10/17/2024 REASON FOR EXAM: CHEST PAIN, ELEVATED DIMER TECHNIQUE: CTA imaging of the chest with intravenous contrast. Multiplanar and multisequence images were obtained. CONTRAST: Isovue 370 VOLUME: 100 mL 18 gauge IV One or more dose reduction techniques were used (e.g., Automated exposure control, adjustment of the mA and/or kV according to patient size, use of iterative reconstruction technique). RADIATION DOSE SUMMARY: CTDlvol: 9.50 and 10.82 mGy DLP: 389.21 mGycm COMPARISON: CTA chest of 03/25/2023 FINDINGS: Thoracic Aorta: Normal caliber. Heart: Lad stent versus calcification. Correlate with cardiology history Pulmonary Vessels: No PE. Normal caliber. Hardware: None. Lymph nodes: No adenopathy. Lungs and Airways: Clear Pleura: No effusions. Portable. Upper Abdomen: Unremarkable. Bones: No aggressive lesions. Endplate spondylosis. CT/CTA Chest W/WO Contrast IMPRESSION: No PE. No acute findings. Coronary artery stent versus calcifications. Correlate with cardiac history. Reading Location[facility]
[2024-10-17] MEDS: 0.9% Normal Saline (1000mL) 1,000 ML 999 ML IV (13:18)
[2024-10-17 14:23] LABS: Troponin T High Sens 2 HR 8 ng/L (<=22)
--- NOTE | 2024-10-17 14:36 | ED.RN ---
PT COMES OUT TO NURSES STATION DESPITE BEING SHOWN HOW TO USE CALL LIGHT TO ASK THIS NURSE PT TEST RESULTS. THIS NURSE INFORMS PT THAT THIS NURSE IS NOT ABLE TO GIVE TEST RESULTS BUT THE DR WILL GO OVER RESULTS AND PT IS ABLE TO ACCESS THEM ON PT PORTAL. PT WIFES STATES OH SO WE DONT GET TO KNOW WHATS GOING ON. THIS NURSE RESTATES LAST STATEMENT. PT WALKS BACK INTO ROOM. THIS NURSE WILL CONTINUE TO MONITOR.
== END 2024-10-17 16:07 | disposition home or self-care (01) ==
PROVIDERS: Emergency Provider Emergency Medicine; PCP Family Medicine; Referring Provider Emergency Medicine; Visit Provider Emergency Medicine
DX: I48.0 Paroxysmal atrial fibrillation (principal); I42.9 Cardiomyopathy, unspecified; R73.9 Hyperglycemia, unspecified; I25.10 Atherosclerotic heart disease of native coronary artery without angina pectoris; J40 Bronchitis, not specified as acute or chronic; E78.00 Pure hypercholesterolemia, unspecified; R07.89 Other chest pain; M54.2 Cervicalgia; M54.9 Dorsalgia, unspecified; I25.2 Old myocardial infarction; Z79.82 Long term (current) use of aspirin; Z79.01 Long term (current) use of anticoagulants; Z79.899 Other long term (current) drug therapy; Z86.718 Personal history of other venous thrombosis and embolism; Z95.5 Presence of coronary angioplasty implant and graft
CPT/HCPCS: 71046; 71275; 80048; 83735; 84443; 84484; 85025; 85379; 85610; 93005; 96360; 96361; 99283; Q9967; A4216

== ENCOUNTER → 2025-01-06 | Outpatient (CLI) | payer MEDICARE, SELFPAY ==
[2024-10-31 08:33] VITALS: BMI 21.4
[2025-01-06 12:48] LABS: AST(SGOT) 28 U/L (<=37); Alanine Aminotransfer ALT/SGPT 31 U/L (<=46); Albumin, Serum 4.4 g/dL (3.4-4.8); Alkaline Phosphatase 77 U/L (40-129); Bilirubin, Direct 0.33 mg/dL (0.00-0.30); Cholesterol 194 mg/dL (<=200); Globulin 2.7 g/dL (2.2-4.2); Low Density Lipoprotein Calc. 115 mg/dL; PSA,Total- Diagnostic 0.99 ng/mL (0.00-4.00); Triglycerides 146 mg/dL; Very Low Density Lipoprotein 29 mg/dL (5-40); cholesterol:hdl ratio screen 3.89
== END | disposition home or self-care (01) ==
PROVIDERS: Nurse Practitioner Family; PCP Family Medicine; Referring Provider Urology; Visit Provider Urology
DX: C61 Malignant neoplasm of prostate (principal); I48.0 Paroxysmal atrial fibrillation; I25.10 Atherosclerotic heart disease of native coronary artery without angina pectoris; E78.00 Pure hypercholesterolemia, unspecified
CPT/HCPCS: 36415; 80061; 80076; 84153

== ENCOUNTER 2025-01-31 13:48 | Emergency (ER) | payer MEDICARE, SELFPAY ==
[2024-10-31 08:33] VITALS: BMI 21.4
[2025-01-31] VITALS (8 sets, daily range): BP systolic 106–130; BP diastolic 77–90; PULSE 58–80; RESP 12–20; TEMP 36.4–36.7; O2SAT 95–98; BMI 25.6
--- NOTE | 2025-01-31 13:51 | EKG12_ITS ---
Test Reason : CP Blood Pressure : */* mmHG Vent. Rate : 77 BPM Atrial Rate : 77 BPM P-R Int : 184 ms QRS Dur : 74 ms QT Int : 338 ms P-R-T Axes : 65 62 66 degrees QTcB Int : 382 ms Normal sinus rhythm Normal ECG Confirmed by MIKE KESSLER, REED ([id number]), editor news MELECIO ORTEGA ([id number]) on 02/01/2025 7:32:33 AM Referred By: TB/AK Confirmed By: REED MCKEON MD
[2025-01-31 14:25] LABS: Hematocrit 44.9 % (40-54); Hemoglobin 16.0 g/dL (13.0-16.5); Immature Granulocytes Count 0.020 X10^3/uL (0.0-0.0); Mean Corp Hgb Conc 35.6 g/dL (32-36); Mean Corpuscular Volume 88.0 fL (80-94); Mean Platelet Vol. 9.8 fl (6.2-12.0); NRBC Flagged by Analyzer 0 % (0-5); Platelet Count 144 K/mm3 (150-450); RBC Distribution Width CV 12.7 % (11.6-14.6); RBC Distribution Width SD 41.1 fl (35.1-43.9); Red Blood Count 5.10 M/mm3 (4.6-6.2); White Blood Count 6.5 K/mm3 (4.4-11.0)
--- NOTE | 2025-01-31 14:35 | RAD_ITS ---
PROCEDURE: CHEST 1 VIEW (PORTABLE) 01/31/2025 REASON FOR EXAM: CHEST PAIN TECHNIQUE: Two-view AP portable upright chest. COMPARISON: PA and lateral chest x-ray of 10/17/2024. RAD/Chest 1 View (Portable) IMPRESSION: No pleural effusion or pneumothorax is seen. Lungs appear clear of acute disease, and unchanged. The cardiomediastinal silhouette is stable, without evidence of cardiomegaly. No acute osseous change is seen. No evidence of acute cardiopulmonary disease. Reading Location: [id number]
[2025-01-31 14:44] LABS: Anion Gap 12 (5-15); BUN 15 mg/dL (4-19); BUN/Creat Ratio 14.1 RATIO (10-20); Calcium,Total 9.1 mg/dL (7.6-11.0); Carbon Dioxide 21.9 mmol/L (21.0-32.0); Chloride 105 mmol/L (98-108); Estimated Creatinine Clearance 75.15 ml/min (50-250); Glucose 110 mg/dL (70-99); Potassium 3.8 mmol/L (3.3-5.1); Troponin T High Sensitivity 9 ng/L (<=22)
--- NOTE | 2025-01-31 15:09 | EDS_ITS ---
HPI History of Present Illness Chief Complaint: Chest Pain [facility] Medical History Pulmonary infiltrate Acute maxillary sinusitis, unspecified Arteriosclerotic coronary artery disease NSTEMI (non-ST elevated myocardial infarction) Cancer Kidney stones GERD (gastroesophageal reflux disease) Irregular heart beat Atrial fibrillation DVT (deep venous thrombosis) Encounter for screening for COVID-19 URI (upper respiratory infection) Pure hypercholesterolemia Paroxysmal atrial fibrillation Cardiomyopathy in other diseases classified elsewhere Family history of hypertension Hyperlipidemia Acute embolism and thrombosis of deep vein of distal lower extremity Palpitations Home Medications ?Medication ?Instructions ?Recorded ?Last Taken ?Type aspirin 81 mg tablet,delayed 81 mg PO BREAKFAST #90 ta bs 03/27/23 01/31/25 Rx release metoprolol tartrate 50 mg tablet 50 mg PO BID #180 tab s 01/22/24 01/31/25 Rx rosuvastatin 5 mg tablet (Crestor) 5 mg PO DAILY #30 t abs 01/11/25 01/31/25 Rx melatonin 5 mg capsule 10 mg PO QHS 01/31/25 History Allergy/AdvReac Type Severity Reaction Status Date / Time No Known Allergies Allergy Verified 10/31/24 09:01 Family History Father Martha Gehrig disease Mother Myocardial infarction CAD (coronary artery disease) Brother Myocardial infarction, Onset Age: 60 Hypertension Multiple sclerosis Other Family history of hypertension Surgical History Stented coronary artery (03/26/23) History of appendectomy History of left heart catheterization (LHC) Presence of IVC filter Social History household members: spouse housing: house Smoking Status: Never smoker alcohol intake: current alcohol intake frequency: a few times a week Alcohol type: beer substance use type: does not use caffeine: Yes Type: coffee Number of servings: 2 what type of physical activity do you participate in: none seatbelt use: always do you feel safe at home: Yes EXAM Physical Exam Const Vital Signs: 01/31/25 13:50 01/31/25 14:49 01/31/25 14:52 Temperature 97.5 F L Temperature Source Temporal Pulse Rate 80 61 Respiratory Rate 20 H 12 Respiratory Effort Normal Non-Labored Respiratory Pattern Normal Blood Pressure 112/89 H 115/82 H Blood Pressure Mean 96 93 Pulse Ox 98 97 Oxygen Delivery Method Room Air Room Air 01/31/25 16:00 01/31/25 17:00 01/31/25 18:00 Temperature Temperature Source Pulse Rate 58 L 60 59 L Respiratory Rate 12 17 18 Respiratory Effort Respiratory Pattern Blood Pressure 110/80 117/77 130/80 H Blood Pressure Mean 90 90 96 Pulse Ox 96 95 96 Oxygen Delivery Method Room Air Room Air Room Air 01/31/25 19:00 01/31/25 19:06 Temperature Temperature Source Pulse Rate 58 L 62 Respiratory Rate 17 17 Respiratory Effort Respiratory Pattern Blood Pressure 106/90 H Blood Pressure Mean 95 Pulse Ox 96 96 Oxygen Delivery Method MDM MDM MDM Narrative Medical decision making narrative: HISTORY OF PRESENT ILLNESS: Chief complaint: Chest pain 64-year-old male history of CAD status post stent, paroxysmal A-fib, VTE presents with chest pain. He states this began at 3 AM. He notes the pain is intermittent. He further states pain has been intermittent. Is not exertional. It is described as a squeezing intermittent pain that radiates to his back and neck. Denies any focal numbness weakness or loss sensation. Notes he feels similar to his prior chest pain in which he was found to have a blockage in the maker. He denies cough fever or chills. Denies leg swelling. Denies shortness of breath. The patient denies recent surgery in the last 4 weeks or immobilization in the last 3 days, denies previous diagnosis of DVT or PE, hemoptysis, unilateral leg swelling or malignancy with treatment the last 6 months or palliative. No estrogen use noted. Patient denies sudden onset of pain, no tearing sensation, no migratory symptoms, no new numbness, weakness or loss of sensation. Patient denies family history or personal history of Connective tissue disorders (Marfan's Syndrome, Tobias Danlos etc) REVIEW OF SYSTEMS: Pertinent positives: Chest pain Pertinent negatives: Shortness of breath, focal weakness PHYSICAL EXAM: Nursing triage notes reviewed, Vital signs reviewed Constitutional: please see mdm HENT: MMM Eyes: Pupils equal round and reactive to light, Extraocular muscles intact Neck: No stridor, no JVD, full neck ROM Lungs: Clear to auscultation, No wheezing or rales. No increased work of breathing, no conversational dyspnea, no accessory muscle use, no nasal flaring. No respiratory distress noted Heart: Regular rate and rhythm, No murmurs, No rubs and No gallops, 2+ distal pulses (radial, femoral, posterior tibial) in all extremities Abdomen: Soft, there is no tenderness, rigidity, rebound or guarding, no obvious peritoneal signs, no palpable pulsatile abdominal masses, no auscultated abdominal bruit : No CVAT Extremities: No edema Neuro: No new focal neurological deficits, cranial nerves II through XII intact, 5/5 strength in all present extremities. Intact sensation to light touch in all present extremities, 2+ reflexes bilateral patella tendons. Skin: No rash or lesions noted MEDICAL DECISION MAKING: Chief Complaint: please see HPI External records reviewed: Reviewed prior cardiovascular testing. Reviewed stress test from 2023. Normal exercise myocardial perfusion noted preserved ejection fraction noted. EF 61%. Factors affecting care: ACS status post stent Social determinants of health: Denies illicit drug use History obtained from others: Consults: Cardiology (Dr. Johnson) -discussed the patient's case. Went over his EKG labs. Dr. Villalta recommended discharge home. MDM Narrative: Patient was seen approximately 1-1/2 hours after initial ED arrival secondary to poor departmental dynamics including high-volume high acuity. There is currently 31 patients in the department. The patient was initially hemodynamically stable, afebrile and nontoxic- appearing I considered the following differential diagnosis: ACS, arrhythmia, anemia, electro disturbance, PE, aortic pathology, pneumothorax, pericarditis A broad lab and imaging workup was obtained via nursing to further determine if the patient was suffering from a life-threatening etiology. The patient history and physical exam are consistent with pulmonary embolism or aortic dissection. ALL IMAGES (IF OBTAINED) HAVE BEEN PERSONALLY REVIEWED AND INTERPRETED BY MYSELF. EKG with normal sinus rhythm rate of 77, normal axis, no intervals, no STEMI High-sensitivity troponin is negative, no evidence of myocardial ischemia CBC with no cytosis, no anemia, noted mild BMP without evidence of significant electrolyte abnormalities, no anion gap, no acute kidney injury. I have personally reviewed the patient's chest x-ray. Chest x-ray is unremarkable for pulmonary edema, pneumothorax, pneumonia or focal cardiopulmonary abnormality. Delta troponin remains negative will await third troponin CTA negative for PE Third troponin remains negative Discussed with cardiology on-call Dr. Johnson who reviewed the patient's case. Noted that the patient's troponins were negative he still symptom-free and appeared comfortable he is appropriate discharge home despite concerning story of chest pain that is essentially the patient's anginal equivalent. States he can follow-up with his office tomorrow. He thought this was safe. Do not recommend admission or transfer at this time. The patient and/or family, caregivers express understanding. The patient and/or family, caregivers agrees with the plan. Shared decision making: I will have a discussion with the patient and or visitors regarding risk/benefits of further testing or admission. They will be made aware of of the risk/benefits inherent in this decision they will be given the opportunity to voice understanding. Total critical care time today provided was at least 0 minutes. This excludes separately billable procedures. Critical care time (if documented) is secondary to the patient having high probability of clinically significant/life threatening deterioration in the patient's condition which required my urgent intervention. Impression: 1. Acute chest pain 2. History of CAD 3. Thrombocytopenia Dispo: Discharge home This note was generated with [employer] dictation software. It may contain incorrect words, spelling, and punctuation that were not noted in review of the chart prior to signing. Lab Data Labs: Laboratory Results - last 24 hr 01/31/25 01/31/25 01/31/25 14:10 16:00 18:04 WBC 6.5 RBC 5.10 Hgb 16.0 Hct 44.9 MCV 88.0 MCH 31.4 MCHC 35.6 RDW Std Deviation 41.1 RDW Coeff of Lance 12.7 Plt Count 144 L MPV 9.8 Immature Gran % (Auto) 0.300 Neut % (Auto) 62.2 Lymph % (Auto) 23.4 [place] % (Auto) 8.2 Eos % (Auto) 5.3 H Baso % (Auto) 0.6 Absolute Neuts (auto) 4.0 Absolute Lymphs (auto) 1.51 Nucleated RBC % 0 Sodium 139 Potassium 3.8 Chloride 105 Carbon Dioxide 21.9 Anion Gap 12 BUN 15 Creatinine 1.09 Estim Creat Clear Calc 75.15 Est GFR (MDRD) Non-Af 76 BUN/Creatinine Ratio 14.1 Glucose 110 H Calcium 9.1 Troponin T High Sens 9 D Troponin T Hi Sens 2 Hr 7 Troponin T Hi Sens 4Hr 8 Radiography Diagnostic Testing: Clinical Impression(s) from Imaging Studies Chest X-Ray 01/31/25 14:35 IMPRESSION: No pleural effusion or pneumothorax is seen. Lungs appear clear of acute disease, and unchanged. The cardiomediastinal silhouette is stable, without evidence of cardiomegaly. No acute osseous change is seen. No evidence of acute cardiopulmonary disease. [id number] 01/31/25 15:51 IMPRESSION: No acute pulmonary emboli. No focal consolidation. Scattered mild bronchiectasis. Left anterior upper lobe mucoid impaction best seen on series 2, image 152. Reading Location: [id number] Discharge Plan Triage Chief Complaint: Chest Pain ED Provider: Padilla Mojica Dx/Rx/DC Orders Clinical Impression: Chest pain Instructions: ED Chest Pain, Uncertain Cause Prescriptions: No Action metoprolol tartrate 50 mg tablet 50 mg PO BID Qty: 180 3RF aspirin 81 mg Tablet,Delayed Release (Dr/Ec) 81 mg PO BREAKFAST Qty: 90 0RF melatonin 5 mg capsule 10 mg PO QHS rosuvastatin [Crestor] 5 mg tablet 5 mg PO DAILY Qty: 30 11RF Primary Care Provider: Shan Desai Referrals: Fabio Johnson MD [Med Staff - Active Staff, Cardiology] Activity Restrictions/Additional Instructions: Thank you for trusting us with your care today! Your labs and images are reassuring. 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 He going to follow-up his office tomorrow morning. Please call his office first thing tomorrow morning Please take aspirin daily Please return to the emergency department if your symptoms change or worsen. Please follow with Cardiology (Dr. Johnson) at the next available appoint for further outpatient evaluation and management. Print Language: Maltese Disposition Disposition: Home, Self Care
--- NOTE | 2025-01-31 15:51 | CT_ITS ---
PROCEDURE: CTA CHEST W/WO CONTRAST 01/31/2025 REASON FOR EXAM: CP, HX OF VTE R/O PE TECHNIQUE: Procedure Code: CTCTACHWW Modality: CT Procedure: CTA CHEST W/WO CONTRAST Multiplanar Sagittal and Coronal images were obtained. CONTRAST: 100 mL of Isovue 370 One or more dose reduction techniques were used (e.g., Automated exposure control, adjustment of the mA and/or kV according to patient size, use of iterative reconstruction technique). RADIATION DOSE SUMMARY: DLP: 397 mGycm COMPARISON: None FINDINGS: PULMONARY ARTERIES: No evidence of pulmonary embolism. LUNGS AND PLEURA: No consolidations. Scattered mild bronchiectasis. Left anterior upper lobe mucoid impaction best seen on series 2, image 152. Bibasilar subsegmental atelectasis. No definite pulmonary edema. No mass or nodule. No pleural effusion. No pneumothorax. MEDIASTINUM: No lymphadenopathy or mass. The heart shows no acute findings. Coronary atherosclerosis/stents. The aorta shows no acute findings. The pulmonary trunk, and branches of the vessels in the mediastinum are within normal limits. SUPRACLAVICULAR AND AXILLARY: No abnormalities seen in these regions. No mass or significant lymphadenopathy. UPPER ABDOMEN: The visualized upper abdomen is unremarkable. BONES AND SOFT TISSUES: The ribs are unremarkable. The visualized spine shows no significant acute findings. No focal bony mass lesions noted. The subcutaneous soft tissues are unremarkable. CT/CTA Chest W/WO Contrast IMPRESSION: No acute pulmonary emboli. No focal consolidation. Scattered mild bronchiecta sis. Left anterior upper lobe mucoid impaction best seen on series 2, image 152. Reading Location: [id number]
[2025-01-31 16:47] LABS: Troponin T High Sens 2 HR 7 ng/L (<=22)
[2025-01-31 18:55] LABS: Troponin T High Sens 4 HR 8 ng/L (<=22)
== END 2025-01-31 19:50 | disposition home or self-care (01) ==
PROVIDERS: Emergency Provider Emergency Medicine; PCP Family Medicine; Visit Provider Emergency Medicine
DX: R07.9 Chest pain, unspecified (principal); I48.0 Paroxysmal atrial fibrillation; I42.9 Cardiomyopathy, unspecified; I25.10 Atherosclerotic heart disease of native coronary artery without angina pectoris; D69.6 Thrombocytopenia, unspecified; E78.00 Pure hypercholesterolemia, unspecified; M54.2 Cervicalgia; I25.2 Old myocardial infarction; Z79.82 Long term (current) use of aspirin; Z79.899 Other long term (current) drug therapy; Z86.718 Personal history of other venous thrombosis and embolism; Z82.49 Family history of ischemic heart disease and other diseases of the circulatory system; Z95.5 Presence of coronary angioplasty implant and graft
CPT/HCPCS: 71045; 71275; 80048; 84484; 85025; 93005; 99284; Q9967; A4216

== ENCOUNTER 2025-02-16 10:15 | Day surgery (SDC) | payer MEDICARE, SELFPAY ==
[2024-10-31 08:33] VITALS: BMI 21.4
[2025-02-15 07:26] VITALS: BMI 25.7
--- NOTE | 2025-02-16 13:05 | CL.D_ITS ---
Patient Name: JERAMY WOOD Study Date: 02/16/2025 Performing: Fabio Johnson MD Ht: 72 inches 182.88 cm : 1960 Wt: 189.99 lbs 86.18 kg Age: 64 Gender: male BSA: 2.08 PROCEDURE(S) PERFORMED [id number])LHC/COR/LV CLINICAL PROFILE AND INDICATIONS Indications: Suspected CAD Heart Failure: None CAD Presentations: No Sxs, no angina. CONCLUSIONS Previously placed stent in LAD is noted to be patent and low normal ejection fraction present. RECOMMENDATIONS Recommend medical therapy. Can probably reduce beta-asuncion and add low-dose ARB DESCRIPTION OF PROCEDURE The patient arrived to the procedure lab. The risks and benefits of the procedure as well as a full description of our services here and current unavailability of surgical backup were fully explained to the patient and/or their significant other prior to the catheterization. The Timeout was completed, verifying the correct patient and procedure. The patient's procedural site was prepped and draped in the usual fashion. Local anesthetic was given subcutaneously to right radial region with Lidocaine 2%. Using a modified Seldinger technique, arterial access was obtained via the right radial artery, a 6Fr sheath was inserted. Left Coronary Artery selective angiography was performed in multiple views using a 5 Fr. 4.0 [place] catheter. Right Coronary Artery selective angiography was then performed in multiple views using a 5 Fr. 4.0 [place] catheter. Left Ventriculography was performed in DANIELS projection using a 5 Fr. [place] catheter. LV to AO pullback pressures were then recorded.The arterial sheath was pulled and a TR Band was applied for hemostasis CORONARY ANGIOGRAPHY DOMINANCE: Right Dominant LEFT HEART ASSESSMENT Left Ventricular Ejection Fraction: by LV Gram 50 % Normal LV wall motion Normal Left Ventricular systolic function LEFT MAIN: Angiographically normal LEFT ANTERIOR DESCENDING ARTERY: There is a medium size vessel with a proximal to mid segment stent which is patent the post stent area has a reduction in the lumen of approximately 40 send but not thought to be hemodynamically significant CIRCUMFLEX ARTERY: Mild luminal irregularities RAMUS: Mild luminal irregularities RIGHT CORONARY ARTERY: Mild luminal irregularities COMPLICATIONS No Complications PROCEDURE MEDICATIONS Fentanyl 50 mcg IV Versed 1 mg IV Oxygen: 2 L/min via nasal cannula Heparin given IA 02/16/2025 12:37:51 Verapamil 2.5mg, Ntg 100mcgs, 3000 units of Heparin given IA 02/16/2025 12:37:51 SUMMARY OF HEMODYNAMIC DATA Time AIR REST ECG 12:29:43 AO 96/65 (79) SA 12:41:56 AO 90/63 (77) 12:42:33 LV 91/4, 18 12:48:19 LV 97/6, 15 12:48:28 LV 93/6, 16 12:49:21 LVp 89/5, 16 12:49:24 AOp 92/58 (73) 12:49:31 AIR REST 13:04:21 Signed By Fabio Johnson MD On 02/16/2025 13:05:58 Signed By Fabio Johnson MD On 02/16/2025 13:04:28 Fabio Johnson MD
== END 2025-02-16 14:35 | disposition home or self-care (01) ==
PROVIDERS: PCP Family Medicine; Referring Provider Internal Medicine Cardiovascular Disease; Visit Provider Internal Medicine Cardiovascular Disease
DX: I25.10 Atherosclerotic heart disease of native coronary artery without angina pectoris (principal); I48.0 Paroxysmal atrial fibrillation; E78.00 Pure hypercholesterolemia, unspecified; K21.9 Gastro-esophageal reflux disease without esophagitis; Z95.5 Presence of coronary angioplasty implant and graft
CPT/HCPCS: 93458; 99152; 99153; Q9967; C1894

== ENCOUNTER → 2025-03-16 | Outpatient (CLI) | payer MEDICARE, SELFPAY ==
[2024-10-31 08:33] VITALS: BMI 21.4
[2025-03-16 16:22] LABS: PSA,Total- Diagnostic 1.10 ng/mL (0.00-4.00)
== END | disposition home or self-care (01) ==
LOC: LAB 14:28
PROVIDERS: PCP Family Medicine; Referring Provider Urology; Visit Provider Urology
DX: C61 Malignant neoplasm of prostate (principal)
CPT/HCPCS: 36415; 84153